=== PATIENT | female | born 1940 | race Caucasian/White ===

== ENCOUNTER → 2018-04-29 12:38 | Outpatient (CLI) | payer MEDICARE, SELFPAY ==
[2018-04-29 12:50] LABS: Bacteria 0 SEEN /hpf (None Seen); Mucous, Urine 0 SEEN /hpf (<or=2+); White Blood Cells 0 SEEN /hpf (0-5)
[2018-04-29 13:46] LABS: Color, Urine Yellow (Yellow); Glucose, Dipstick Normal (Normal); Ketone-Dipstick 15 mg/dl (Negative); Leukocyte Esterase-Dipstick Negative /ul (Negative); Nitrite-Dipstick Negative (Negative); Occult Blood-Urine 150 /ul (Negative); Protein-Dipstick Negative (Negative); Urine Bilirubin Dipstick Negative (Negative); Urine Clarity Clear (Clear); Urine Urobilinogen Normal (Normal)
[2018-04-29 13:53] LABS: Red Blood Cells-Urine 0-5 SEEN /hpf (0-5); Squamous Epithelial Cells - UA 0-5 SEEN /hpf (5-10)
[2018-04-29 13:59] LABS: Erythrocyte Sedimentation Rate 16 mm/hr (0-30)
[2018-04-29 14:01] LABS: Absolute Lymphocyte Count 2.09 X10^3/ul (0.83-4.51); Absolute Neutrophil Count 3.6 X10^3/uL (2.0-7.7); Basophil# 0.06 X10^3/uL; Basophil% 0.9 % (0-1); Eosinophil# 0.16 X10^3/uL; Eosinophils% 2.4 % (0-5); Hematocrit 45.3 % (37-47); Hemoglobin 15.1 g/dl (12.0-15.0); Lymphocyte # 2.09 X10^3/ul (4.0); Lymphocyte % 31.7 % (19-41); Mean Corp Hgb Conc 33.3 g/gl (32-36); Mean Corpuscular Volume 90.1 fL (81-99); Mean Platelet Vol. 11.5 fl (6.2-12.0); Monocyte# 0.66 X10^3/uL; Neutrophil % 54.5 % (47-70); POSITIVE COUNT NO; POSITIVE DIFFERENTIAL NO; POSITIVE MORPHOLOGY NO; Platelet Count 218 K/mm3 (150-450); RBC Distribution Width CV 13.6 % (11.6-14.6); RBC Distribution Width SD 44.5 fl (35.1-43.9); Red Blood Count 5.03 M/mm3 (4.2-5.4); White Blood Count 6.6 K/mm3 (4.4-11.0)
[2018-04-29 14:05] LABS: PTHIN 48.4 pg/mL (18.4-80.1)
[2018-04-29 14:07] LABS: ALB/GLOB Ratio 0.8 RATIO (0.9-2.4); AST(SGOT) 21 U/L (15-37); Alanine Aminotransfer ALT/SGPT 23 U/L (13-56); Albumin, Serum 3.3 g/dL (3.2-5.0); Alkaline Phosphatase 62 U/L (45-117); Anion Gap 13 (5-15); BUN 13 mg/dL (7-18); BUN/Creat Ratio 12.4 RATIO (10-20); Calcium,Total 9.2 mg/dL (8.5-10.1); Chloride 105 mmol/L (98-107); Creatinine, Serum 1.05 mg/dL (0.55-1.02); EST Glomerular Filtration Rate 54 mL/min (>60); Est Glom Filt Rate - Afr Amer 65 mL/min (>60); Glucose 87 mg/dL (74-106); Potassium 4.2 mmol/L (3.5-5.1); Protein, Total 7.3 g/dL (6.4-8.2); Sodium Level 141 mmol/L (136-145); Thyroid Stim Hormone (TSH) 3.48 uIU/mL (0.358-3.74)
== END ==
PROVIDERS: Family Provider Family Medicine; PCP Family Medicine; Visit Provider Family Medicine
DX: R10.32 Left lower quadrant pain (principal); E78.00 Pure hypercholesterolemia, unspecified
CPT/HCPCS: 36415; 80053; 81001; 83970; 84443; 85025; 85652; 86140; 87086

== ENCOUNTER → 2018-04-29 14:59 | Outpatient (CLI) | payer MEDICARE, SELFPAY ==
[2018-04-29 15:02] LABS: Bacteria 0 SEEN /hpf (None Seen); Mucous, Urine 0 SEEN /hpf (<or=2+); Red Blood Cells-Urine 0 SEEN /hpf (0-5); White Blood Cells 0 SEEN /hpf (0-5)
[2018-04-29 15:40] LABS: Color, Urine Yellow (Yellow); Glucose, Dipstick Normal (Normal); Ketone-Dipstick 15 mg/dl (Negative); Leukocyte Esterase-Dipstick Negative /ul (Negative); Nitrite-Dipstick Negative (Negative); Occult Blood-Urine 25 /ul (Negative); Protein-Dipstick Negative (Negative); Urine Bilirubin Dipstick Negative (Negative); Urine Clarity Clear (Clear); Urine Urobilinogen Normal (Normal)
[2018-04-29 16:01] LABS: Squamous Epithelial Cells - UA 0-5 SEEN /hpf (5-10)
== END ==
PROVIDERS: Family Provider Family Medicine; PCP Family Medicine; Visit Provider Family Medicine
DX: R10.32 Left lower quadrant pain (principal); E78.00 Pure hypercholesterolemia, unspecified
CPT/HCPCS: 36415; 80053; 81001; 83970; 84443; 85025; 85652; 86140; 87086; 87088

== ENCOUNTER → 2018-05-15 12:54 | Outpatient (CLI) | payer MEDICARE, SELFPAY ==
--- NOTE | 2018-05-15 12:56 | CT_ITS ---
STUDY: CT ABDOMEN AND PELVIS WITH CONTRAST REASON FOR EXAM: Female, 77 years old. Left lower quadrant pain. RADIATION DOSAGE (If Supplied By Facility): CTDIvol = ( 13.89 ) mGy, DLP = ( 699.89 ) mGycm TECHNIQUE: Transaxial images were obtained from the dome of the diaphragm to the symphysis pubis with oral contrast. 100 ml of Isovue 300 contrast was administered. Sagittal and coronal images were reconstructed. Individualized dose optimization techniques were used for this CT. COMPARISON: Comparison is made with prior study dated December 22, 2014. FINDINGS: Stable minimal increased markings at the lung bases suggests a mild bibasilar scarring. The visualized portions of the heart are within normal limits. Normal liver. Normal gallbladder and extrahepatic biliary system. Normal spleen. Normal pancreas. Normal bilateral adrenal glands. Stable small right renal cysts. Stable left parapelvic cysts. Normal visualized stomach. There is a 2 cm diverticulum in the second portion of the duodenum. There are multiple colonic diverticula consistent with diverticulosis. Mild degree of increased markings in the fat surrounding the mid descending colon. This may represent a mild degree of mid descending colon diverticulitis. The appendix is visualized and appears normal. There is diffuse atherosclerotic calcification of the abdominal aorta and its major visceral branches, without a demonstrated aneurysm. Normal inferior vena cava. There is borderline retroperitoneal lymphadenopathy with enlarged nodes no greater than 10mm in the short axis diameter. Normal urinary bladder. The previously seen cyst in the left adnexal region is not seen at this time. There is a small umbilical hernia containing fat. There are degenerative changes of the visualized lumbar spine. CT/Abdomen/Pelvis WITH Contrast IMPRESSION: Findings suggestive of a mild degree of early diverticulitis in the mid descending colon. The previously seen cyst in the left adnexa has resolved. Electronically Signed: Dominic Haywood MD at 13:49 EDT Tel [phone], Service support ,
== END ==
PROVIDERS: Family Provider Family Medicine; PCP Family Medicine; Visit Provider Family Medicine
DX: R10.32 Left lower quadrant pain (principal)
CPT/HCPCS: 74177; Q9967

== ENCOUNTER → 2018-07-09 08:50 | Outpatient (CLI) | payer MEDICARE, SELFPAY ==
--- NOTE | 2018-07-09 09:25 | RAD_ITS ---
STUDY: BARIUM ENEMA. REASON FOR EXAM: Female, 78 years old. Incomplete colonoscopy. FLUOROSCOPY TIME (if supplied): (0:42) minutes/seconds. 13 spot images were obtained. TECHNIQUE: Barium was introduced retrograde through the rectum. The entire colon was opacified. COMPARISON: None. FINDINGS: There is evidence of diverticulosis of the descending colon and sigmoid colon. There is a focal area of narrowing in the midportion of the sigmoid colon with findings suggestive of overhanging edges. A neoplastic process. There is no evidence of obstruction. RAD/Barium Enema w/Air Contrast IMPRESSION: Diverticulosis of the left hemicolon. Focal area of narrowing with overhanging edges in the midportion of the sigmoid colon. A neoplastic process should be ruled out. There is no evidence of obstruction. Electronically Signed: Dominic Haywood MD at 10:19 EST Tel [phone], Service support ,
== END ==
PROVIDERS: Family Provider Family Medicine; PCP Family Medicine; Referring Provider Surgery; Visit Provider Surgery
DX: Z53.9 Procedure and treatment not carried out, unspecified reason (principal); K57.30 Diverticulosis of large intestine without perforation or abscess without bleeding
CPT/HCPCS: 74280

== ENCOUNTER 2018-08-20 11:50 | Day surgery (SDC) | payer MEDICARE, SELFPAY ==
[2018-08-14 15:30] VITALS: BMI 25.0
[2018-08-20] VITALS (8 sets, daily range): BP systolic 101–149; BP diastolic 46–74; PULSE 94–109; RESP 15–16; TEMP 36.2–36.9; O2SAT 95–100; BMI 25.4
--- NOTE | 2018-08-20 12:46 | PCM.HP.BLA ---
History and Physical Date of Admission: 08/20/18 HISTORY AND PHYSICAL - COLON RESECTION FOR RECURRENT DIVERTICULITIS ? Shadia Turner 1940 August 07, 2018 ? REFERRING PHYSICIAN: ??Doroteo Dominguez MD ? CHIEF COMPLAINT: ?LLQ pain ? HPI: The patient is a 78 year old female with a complaint of recurrent LLQ pain. ? Shadia is a patient I am following for diverticulitis. ? The patient is a 78?year old female referred for diverticulitis and questionable pneumaturia. ? Shadia notes a 6-month history of abdominal complaints. ?She notes a pressure sensation and discomfort in her left lower abdomen intermittently, does not radiate, varies in intensity-states currently /. ?Notes pressure with having a bowel movement and feels that she passes air when she urinates. ?Notes recently when wiping after urination she sees stool on the paper. ?Denies frequent UTIs. ?She does note a recent history of low-grade fever-100.5. ?Was evaluated by her PCP who ordered UA and bloodwork as well as CT scan. ?Urine results reviewed in [facility], positive for occult blood as well as mixed gram positive organisms. ?CBC was within normal limits. ? Shadia has undergone prior endoscopy, thinks this was in 2007, by Dr. Lee. ?She denies a history of polyps. ??Denies family history of colon cancer. ??Patient states that in the past she had episodes suspected to be diverticulitis not formally diagnosed. ?She had previously had ?episodes of lower abdominal pain and underwent lysis of adhesions in conjunction with [employer] procedure in 2014. ? ? We obtained a CT scan of the abdomen and pelvis. ?This demonstated mild diverticulitis in the descending colon/proximal sigmoid. There was no colon approximate to the bladder, no bladder thickening and no air in the bladder ? ?I performed lower endoscopy on July 09, 2018. ?The patient was found to have significant tortuosity and diverticulosis which may be concerned for blindly try and advance the scope through the segment through the risk of injury. ?Endoscopy was aborted. ?Endoscopically there were no visualized area suspicious for malignancy. ? A follow-up barium enema was obtained. ?This demonstrated diverticulosis in the left hemicolon. ?There was also noted to be a focal area of narrowing with overhanging edges in the midportion of the sigmoid colon. ?It was listed as a neoplastic process should be ruled out and that there was no evidence obstruction. ?Reviewing the barium enema in concert with the CT scan I do see what Dr. Haywood is noting. ?I agree this is most likely a diverticular narrowing segment but also agree that I cannot rule out a malignancy in this area. ? She returns now with plans to repeat a colonoscopy and if I am unable to get past the area of concern and prove this is nonsignificant then would plan for laparoscopic sigmoid resection the following day ? The patient is being seen by me today at the request of Dr. Doroteo Dominguez MD?for my opinion and advice regarding recurring diverticulitis and now left lower quadrant pain/questionable stricture. ? PAST?MEDICAL?HISTORY PAST MEDICAL HISTORY Diagnosis Date ? Asthma ? ? as a child ? Osteoporosis ? ? Snoring ? ? ? PAST?SURGICAL?HISTORY PAST SURGICAL HISTORY Procedure Laterality Date ? APPENDECTOMY ? ? ? COLONOSCOP W/ OR W/O BRS SPEC ? ? ? Colonoscopy ? COLONOSCOP W/ OR W/O BRSH SPEC ? 07/09/2018 ? Colonoscopy ? LAP, SURG ENTEROLYSIS ? 02/22/15 ? intraoperative for Dr. Wharton ? LIGATE FALLOPIAN TUBE ? ? ? PAST SURGICAL HISTORY OF ? 10/2006 ? right foot surgery ? PAST SURGICAL HISTORY OF ? 06/11 ? left foot surgery ? ? CURRENT?MEDICATIONS ? Current Outpatient Prescriptions: gabapentin (NEURONTIN) 100 mg capsule TAKE 1 CAPSULE BY MOUTH THREE TIMES DAILY WITH A MEAL...AND 3 CAPSULES AT BEDTIME Disp: Rfl: 0 magnesium oxide 200 mg magnesium tab Take by mouth. Disp: Rfl: aspirin, enteric coated (ASPIRIN, ENTERIC COATED) 81 mg EC tablet Take 81 mg by mouth once daily. Disp: Rfl: ERGOCALCIFEROL, VITAMIN D2, (VITAMIN D ORAL) Take ?by mouth. Disp: Rfl: CALCIUM 500 MG TAB Take one(1) tablet twice daily. w/ vit D Disp: Rfl: 0 MULTIVITAMIN TAB Take one(1) tablet daily. Disp: Rfl: 0 neomycin 500 mg tablet Take 2 tablets by mouth four times daily. 2 TABLETS AT 6, 8 ,AND 10 PM Disp: 6 tablet Rfl: 0 metroNIDAZOLE (FLAGYL) 500 mg tablet Take 1 tablet by mouth three times daily. 2 TABLETS AT 6, 8, AND 10 PM Disp: 6 tablet Rfl: 0 ? No current facility-administered medications for this visit. ? ALLERGIES: Augmentin [Amoxicillin-Pot Clavulanate]; Latex ? PERSONAL HISTORY: SOCIAL?HISTORY Social History ??Marital status: ?Spouse name: Shin ?Years of education: ?Number of children: 4 ? Occupational History Occupation ?Employer ?Comment ? 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 Social History Main Topics ??Smoking status: Never Smoker ?Smokeless tobacco: Never Used ?Alcohol use: No ?Drug use: No ?Sexual activity: Yes ?Partners with: Male ? control/protection: Tubal Ligation ?Comment: Postmenopausal ? ? FAMILY HISTORY: FAMILY?HISTORY FAMILY HISTORY Problem Relation Age of Onset ? Hypertension Mother ? ? Osteoporosis Mother ? ? other (Dementia) Mother ? ? other (lung cancer) Father ?smoker ? REVIEW OF SYMPTOMS: ??The review of systems data was entered by the nurse and reviewed by me ? Nursing Notes: Demetrius Schuster LPN ?08/06/2018 ?1:40 PM ?Signed REVIEW OF SYSTEMS: ?General:???The patient denies fatigue, denies weight loss, denies weight gain, denies feeling hot, and denies feelings of cold. ?Eyes: ?The patient denies glaucoma, denies eye injury/surgery, does not wear glasses or contacts. ?Ear/Nose/Throat: ?The patient denies allergies, NOTES hayfever, denies ear infections, and denies bloody noses. ?Cardiovascular: ?The patient denies chest pain, denies heart disease, denies high blood pressure,denies cardiac stent, denies prior heart attack, denies irregular heart beat, denies high cholesterol, ?denies poor circulation, denies heart failure, other cardiac issues, denies claudication, denies cold feet, denies peripheral arterial stent. ?Respiratory: ?The patient denies tuberculosis, denies pneumonia, denies frequent cough, denies pulmonary embolism, denies shortness of breath, and denies coughing up blood. ?Gastrointestinal: ?The patient denies difficulty swallowing, denies acid reflux, denies ulcers, denies vomiting, denies jaundice/hepatitis, denies gallbladder problems, denies black or tarry stools, denies hemorrhoids, denies bleeding from rectum, denies diverticulitis, denies constipation, denies diarrhea, NOTES loss of stool control, and denies hernias. ?Kidney/Bladder: ?The patient denies kidney stones, denies urine infections, and denies bloody urine. ?Skin: ?The patient denies a history of skin cancer, denies bleeding/changing moles, and denies a history of skin rash. ?Neurologic: ?The patient denies a history of epilepsy/convulsions, denies headaches, denies head/spinal injuries, and denies stroke/TIA. ?Psychiatric: ?The patient denies psychiatric medications, denies depression, and denies voices, denies substance abuse. ?Endocrine: ?The patient denies thyroid disorders, denies diabetes, and denies hormonal problems. ?Hematologic: ?The patient denies a history of bruising, denies bleeding, and denies anemia, denies blood clots. ?Infections: ?The patient denies a history of measles and mumps, denies rheumatic fever, and denies sexually transmitted diseases. ?Musculoskeletal: ?The patient denies back pain/injury, denies back problems, denies sciatica, denies knee/foot trouble, denies arthritis, or denies gout. ? PHYSICAL EXAMINATION: ? General: ?The patient is 78 year old female, well nourished, well hydrated in no acute distress. ?The patient is oriented to time, place, and person. ? VITALS: BP 138/62 ? Pulse 88 ?There is no height or weight on file to calculate BMI.? ? HEENT: ?Normal cephalic, ataumatic, pupils are equally round, sclera are anicteric, mucous membranes are moist, oropharynx is clear. ?Neck has no masses, asymmetry or lymphadenopathy. ?Thyroid is unremarkable. ? Respiratory: ?Clear to auscultation and percussion. ?Normal respiratory excursion and pattern. ? Cardiac: ?Examination is regular rate and rhythm. ? Abdominal exam: ?Soft, nontender, ?with no palpable masses. ?No hepatosplenomegaly. ?No palpable hernias. ? Rectal exam: ?exam deferred ? Extremities: ?no clubbing, cyanosis or edema. ?No adenopathy. ? LABORATORY VALUES: As Noted ? RADIOLOGIC STUDIES: ?As Noted ? Assessment ? IMPRESSION: Recurring diverticulitis, unable to complete colonoscopy and barium enema suspicious for stenosis versus malignancy? ? PLAN: ? We extensively discussed the diagnosis and discussed the options. ??The patient has elected to undergo colon resection we are unable to prove that the abnormality is nonsignificant and nonmalignant. ? We'll plan for bowel prep Sunday night with colonoscopy Sunday. ?The patient understands we will try more aggressively to get past the area of tortuosity to the area of concern on barium enema and this increases the risk of injury to the colon and perforation requiring emergent surgery that day. ??We discussed the risks and benefits of the planned endoscopy. ?I have informed the patient that complications can occur including failure to complete the endoscopy and perforation. ?The patient had the opportunity to ask questions concerning the planned endoscopy. ?My staff has also explained the procedure to the patient in understandable terms and has given the patient printed material concerning the procedure. ?The patient freely consents to surgery. ? If I am unable to get beyond that area or if the area does appear chronically narrowed and/or suspicious for malignancy, then I plan to perform a Laparoscopic Low Anterior Resection - 92964-496. ?The planned surgical procedure was discussed extensively with the patient. ?The risks, benefits, anticipated outcomes and possible complications and alternatives were discussed. ?My staff has also explained the procedure in understandable terms and the patient was given the option to take printed material concerning the planned procedure. ?The patient had the opportunity to ask questions concerning the planned procedure. ?The patient freely consents to the planned procedure. ?? ? I will plan for outpatient antibiotic preparation including Neomycin and Flagyl 1gm each at 6,8, and 10pm the night before surgery. ? Anticipated Surgical Procedure/ CPT Code: Laparoscopic Low Anterior Resection - 32481-281 ? Anticipated Anesthetic: General ? Patient weight: ?Blood pressure 138/62, pulse 88.?BMI: ?There is no height or weight on file to calculate BMI. ? Planned antibiotic: Levaquin 500mg IVPB rehabilitation caseworker to OR ? SCDs needed - Yes ? Compensation And Benefits Advisor Needed - Yes ?? ? Diagnoses: (D12.6) Adenomatous polyp of colon, unspecified part of colon ?(primary encounter diagnosis) ? A letter was sent to Dr. Doroteo Dominguez MD?indicating the above finding for this patient. ? Return to Clinic: The patient is instructed to follow-up with me 1 week post operatively. ? Yoel Guzman MD
--- NOTE | 2018-08-20 13:00 | COLBX_PTH ---
PATIENT: KAT WICK LOC: EN U#:[id number] AGE/SX: 78/F ROOM: RE08/20/[address]: Dr. Yoel Guzman MD : 1940 BED: DIS: 08/20/2018 SPEC #: [id number] RECD: 08/20/18 14:34 STATUS: PHYLLIS REMildred #: [id number] JAG: 08/20/18 13:[address]: Yoel Guzman DEPT: SURGICAL PATHOLOGY RECD BY: Goldy Sandoval ENTERED: 08/21/18 10:20 SP TYPE: COLON BX OTHR DR: Dr. Doroteo Dominguez MD Tissues: A - Cecum, NOS B - Gastric mucous membrane C - Gastric mucous membrane Procedures: Surgery Specimen Level IV HEADER OPERATION: Colonoscopy, EGD ([facility] [place]) PRE-OP DIAGNOSIS: Barium enema with possible malignancy TISSUE SUBMITTED: A - Cecal biopsy, B - Antrum biopsy for H. pylori and path, C - Biopsy of fundic polyp MICROSCOPIC DIAGNOSIS A. Cecum, biopsy: Colonic mucosa with no significant pathologic change. B. Gastric antrum, biopsy: Mild chronic inflammation. C. Gastric fundus, biopsy: Fundic gland polyp. AM:martin 08/22/18 COMMENT B. The results of immunohistochemistry for Helicobacter pylori will be reported separately ([id number]). MICROSCOPIC DESCRIPTION Slides are reviewed. GROSS DESCRIPTION A - Received in fixative is one container labeled with the patient's name and designated cecal biopsy. The specimen consists of one irregular fragment of light sam soft tissue that measures 0.2 x 0.1 x 0.1 cm. The specimen is totally submitted in one cassette. B - Received in fixative is one container labeled with the patient's name and designated antrum. The specimen consists of one irregular fragment of light sam soft tissue that measures 0.3 x 0.2 x 0.1 cm. The specimen is totally submitted in one cassette. C - Received in fixative is one container labeled with the patient's name and designated biopsy of fundic polyp. The specimen consists of one irregular fragment of light sam soft tissue that measures 0.2 x 0.1 x 0.1 cm. The specimen is totally submitted in one cassette. / AM:martin 08/21/18 TC:3 CPT: 72664 x3
--- NOTE | 2018-08-20 13:00 | IMM_PTH ---
PATIENT: KAT WICK LOC: EN U#:[id number] AGE/SX: 78/F ROOM: RE08/20/[address]: Dr. Yoel Guzman MD : 1940 BED: DIS: 08/20/2018 SPEC #: [id number] RECD: 08/21/18 11:43 STATUS: PHYLLIS REQ #: [id number] JAG: 08/20/18 13:[address]: Yoel Guzman DEPT: IMMUNOHISTOCHEMISTRY RECD BY: Roopa Martin ENTERED: 08/21/18 11:44 SP TYPE: IMMUNO OTHR DR: Dr. Doroteo Dominguez MD Tissues: B - Stomach, NOS Procedures: H Pylori (initial) PHYSICIAN & INSTITUTION [place] [id number] SPECIMEN INFORMATION: Tissue Source: B - Antrum biopsy Clinical Info: Possible malignancy Specimen Number: [id number] CPT code: 94963 METHODOLOGY: Deparaffinized sections of prefer/formalin-fixed tissue or PAP/DQ stained slides are incubated with monoclonal/polyclonal antibodies/oligonucleotide probes. Localization is made via biotin free immunoperoxidase method. Appropriate controls are performed and reacted as expected. Results on target cell population are indicated in the following table: RESULTS: ANTIBODY / CLONE RESULT Block B H Pylori (polyclonal) negative These tests were developed and their performance characteristics determined by [facility]. They may not have been cleared or approved by the U.S. Food and Drug Administration. The FDA has determined that such clearance or approval is not necessary. INTERPRETATION: B. Antrum, biopsy: Negative for Helicobacter pylori organisms. SJ:martin 08/23/18
--- NOTE | 2018-08-20 14:23 | OP.ENDO_ITS ---
Patient Name: Shadia Turner Procedure Date: 08/20/2018 2:06 PM Date of : 1940 Age: 78 Procedure: Upper GI endoscopy Indications: Suspected upper gastrointestinal bleeding Providers: Yoel Guzman MD Referring MD: Yoel Guzman MD Medicines: Monitored Anesthesia Care Patient Profile: This is a 78 year old female. Refer to note in patient chart for documentation of history and physical. Complications: No immediate complications. Procedure: Pre-Anesthesia Assessment: - Prior to the procedure, a History and Physical was performed, and patient medications and allergies were reviewed. The patient is competent. The risks and benefits of the procedure and the sedation options and risks were discussed with the patient. All questions were answered and informed consent was obtained. Patient identification and proposed procedure were verified by the physician, the nurse and the review specialist in the procedure room. Mental Status Examination: alert and oriented. Airway Examination: normal oropharyngeal airway and neck mobility. Respiratory Examination: clear to auscultation. CV Examination: normal. ASA Grade Assessment: II - A patient with mild systemic disease. After reviewing the risks and benefits, the patient was deemed in satisfactory condition to undergo the procedure. The anesthesia plan was to use monitored anesthesia care (MAC). Immediately prior to administration of medications, the patient was re-assessed for adequacy to receive sedatives. The heart rate, respiratory rate, oxygen saturations, blood pressure, adequacy of pulmonary ventilation, and response to care were monitored throughout the procedure. The physical status of the patient was re-assessed after the procedure. After obtaining informed consent, the endoscope was passed under direct vision. Throughout the procedure, the patient's blood pressure, pulse, and oxygen saturations were monitored continuously. The gastroscope was introduced through the mouth, and advanced to the jejunum. The upper GI endoscopy was accomplished without difficulty. Scope In: 2:07:32 PM Scope Out: 2:11:48 PM Total Procedure Duration Time 0 hours 4 minutes 16 seconds Findings: The examined jejunum was normal. Scattered mild inflammation characterized by adherent blood and erythema was found in the gastric body. Biopsies were taken with a cold forceps for histology. A small non-bleeding Patricia-Ybarra tear with no stigmata of recent bleeding was found. Multiple small sessile polyps with no bleeding and no stigmata of recent bleeding were found in the gastric fundus. The polyp was removed with a cold biopsy forceps. Resection and retrieval were complete. Impression: - Normal examined jejunum. - Gastritis. Biopsied. - Patricia-Ybarra tear. - Multiple gastric polyps. Resected and retrieved. Recommendation: - Return to my office in 1 week. - Continue present medications. Procedure Code(s): --- Professional --- 78101, Esophagogastroduodenoscopy, flexible, transoral; with biopsy, single or multiple CPT copyright 2017 [employer]. All rights reserved. The codes documented in this report are preliminary and upon travel writer review may be revised to meet current compliance requirements. Yoel Guzman MD 08/20/2018 2:22:26 PM This report has been signed electronically. Number of Addenda: 0 Note Initiated On: 08/20/2018 2:06 PM
--- NOTE | 2018-08-20 14:28 | OP.ENDO_ITS ---
Patient Name: Shadia Turner Procedure Date: 08/20/2018 12:50 PM Date of : 1940 Age: 78 Procedure: Colonoscopy Indications: Follow-up of diverticulitis Providers: Yoel Guzman MD Referring MD: Yoel Guzman MD Medicines: Monitored Anesthesia Care Patient Profile: This is a 78 year old female. Refer to note in patient chart for documentation of history and physical. Last Colonoscopy: within the past 3 months. Complications: No immediate complications. Procedure: Pre-Anesthesia Assessment: - Prior to the procedure, a History and Physical was performed, and patient medications and allergies were reviewed. The patient is competent. The risks and benefits of the procedure and the sedation options and risks were discussed with the patient. All questions were answered and informed consent was obtained. Patient identification and proposed procedure were verified by the physician, the nurse and the tax director in the procedure room. Mental Status Examination: alert and oriented. Airway Examination: normal oropharyngeal airway and neck mobility. Respiratory Examination: clear to auscultation. CV Examination: normal. Prophylactic Antibiotics: The patient does not require prophylactic antibiotics. Prior Anticoagulants: The patient has taken no previous anticoagulant or antiplatelet agents. ASA Grade Assessment: II - A patient with mild systemic disease. After reviewing the risks and benefits, the patient was deemed in satisfactory condition to undergo the procedure. The anesthesia plan was to use monitored anesthesia care (MAC). Immediately prior to administration of medications, the patient was re-assessed for adequacy to receive sedatives. The heart rate, respiratory rate, oxygen saturations, blood pressure, adequacy of pulmonary ventilation, and response to care were monitored throughout the procedure. The physical status of the patient was re-assessed after the procedure. After I obtained informed consent, the scope was passed under direct vision. Throughout the procedure, the patient's blood pressure, pulse, and oxygen saturations were monitored continuously. The Colonoscope was introduced through the anus and advanced to the cecum, identified by the appendiceal orifice, ileocecal valve and palpation. The colonoscopy was technically difficult and complex due to a redundant colon. Successful completion of the procedure was aided by changing the patient to a supine position. The patient tolerated the procedure well. Scope In: 1:30:07 PM Scope Withdrawal Time 0 hours 18 minutes 11 seconds Scope Out: 2:03:08 PM Total Procedure Duration Time 0 hours 33 minutes 1 second Findings: The perianal and digital rectal examinations were normal. Many small and large-mouthed diverticula were found in the sigmoid colon. A benign-appearing, intrinsic mild stenosis measuring 1 cm (in length) x 1.3 cm (inner diameter) was found in the sigmoid colon and was traversed. The retroflexed view of the distal rectum and anal verge was normal and showed no anal or rectal abnormalities. Impression: - Diverticulosis in the sigmoid colon. - Stricture in the sigmoid colon. - The distal rectum and anal verge are normal on retroflexion view. - No specimens collected. Recommendation: - Discharge patient to home. - Resume previous diet. - Continue present medications. - Return to my office in 1 week. - Repeat colonoscopy is recommended. The colonoscopy date will be determined after pathology results from today's exam become available for review. Procedure Code(s): --- Professional --- 53355, Colonoscopy, flexible; diagnostic, including collection of specimen(s) by brushing or washing, when performed (separate procedure) CPT copyright 2017 [employer]. All rights reserved. The codes documented in this report are preliminary and upon lottery sales clerk review may be revised to meet current compliance requirements. Yoel Guzman MD 08/20/2018 2:28:11 PM This report has been signed electronically. Number of Addenda: 0 Note Initiated On: 08/20/2018 12:50 PM
--- NOTE | 2018-08-20 14:50 | RAD_ITS ---
STUDY: X-RAY - ABDOMEN/PELVIS REASON FOR EXAM: Female, 78 years old. Pain after endoscope TECHNIQUE: AP supine and upright views of the abdomen and pelvis. COMPARISON: None. FINDINGS: Normal visualized lung bases. There is an unremarkable bowel gas pattern. There is no demonstrated free abdominal air. The visualized liver, spleen and kidneys are grossly normal in size and morphology. There are calcified phleboliths in the pelvis. There are diffuse degenerative changes of the visualized lumbar spine. RAD/Abdomen Single View (Portable) IMPRESSION: No acute findings Electronically Signed: Leo Chowdhury MD at 16:04 EST , Service support ,
--- NOTE | 2018-08-20 15:10 | RAD_ITS ---
STUDY: X-RAY CHEST REASON FOR EXAM: Female, 78 years old. Status post endoscopy evaluate for free air TECHNIQUE: Single AP portable view of the chest. COMPARISON: None. FINDINGS: There is a rim of gas underlying the midepigastric region and underlying the bilateral hemidiaphragms portion of which may represent a amount of gas within the stomach however free air is not excluded based on this study. Minimal bilateral lower lobe atelectasis. Normal size heart. Normal mediastinum and andrez. Normal visualized pulmonary arteries. Normal visualized aortic arch and descending thoracic aorta. There are diffuse degenerative changes of the visualized thoracic spine. Normal visualized ribs, clavicles, and shoulders. There is visualized vascular calcifications in the left upper quadrant compatible with splenic calcification. RAD/Chest 1 View (Portable) IMPRESSION: There is a rim of gas underlying the hemidiaphragms bilaterally raises concern for pneumoperitoneum recommend CT scan of the abdomen and pelvis. This can be performed without contrast to evaluate for free air. N.B. : DEREJE Boone, confirmed on 08/20/2018 19:30:29 (ET) that the referring physician received the results and did not require a verbal consultation. Electronically Signed: Italia Smyth MD at 17:32 EST Tel , Service support ,
--- OUTSIDE RECORDS SUMMARY | 2018-11-21 21:20 | XMS RPT_ITS ---
:1940 Author Organization OHIP Care Team Providers Name Role Phone HYACINTH IYER (PA) Attending Unavailable MIGUEL DOMINGUEZ Referring Unavailable NEO MALIK Attending Unavailable MIGUEL DOMINGUEZ Referring Unavailable NEO MALIK Attending Unavailable NEO MALIK Referring Unavailable NEO MALIK Attending Unavailable MIGUEL DOMINGUEZ Referring Unavailable NEO MALIK Attending Unavailable MIGUEL DOMINGUEZ Referring Unavailable NEO MALIK Admitting Unavailable NEO MALIK Attending Unavailable NEO MALIK Referring Unavailable NEO MALIK Attending Unavailable MIGUEL DOMINGUEZ Referring Unavailable Miguel Dominguez Primary Care Unavailable Neo Malik Admitting Unavailable Megan, Neo Attending Unavailable Megan, Neo Referring Unavailable JessikaАлександр mckinneyril Attending Unavailable Bernabe Wharton Referring Unavailable Dominguez, Miguel Attending Unavailable Krishna Wharton Referring Unavailable Dominguez, Miguel Primary Care Unavailable Krishna Wharton Consulting Unavailable Dominguez, Miguel Consulting Unavailable Dominguez, Miguel Attending Unavailable Dominguez, Miguel Referring Unavailable Dominguez, Miguel Primary Care Unavailable Dominguez, Miguel Attending Unavailable Dominguez, Miguel Primary Care Unavailable Dominguez, Miguel Referring Unavailable Dominguez, Miguel Attending Unavailable Dominguez, Miguel Referring Unavailable Dominguez, Miguel Primary Care Unavailable Megan, Neo Consulting Unavailable Megan, Neo Attending Unavailable Megan, Neo Referring Unavailable Dominguez, Miguel Primary Care Unavailable Megan, Neo Admitting Unavailable Megan, Neo Attending Unavailable Megan, Neo Referring Unavailable Dominguez, Miguel Primary Care Unavailable Megan, Neo Attending Unavailable Megan, Neo Referring Unavailable Dominguez, Miguel Primary Care Unavailable PROBLEMS PROBLEMS DATE TYPE CONDITION / CODE ATTENDING STATUS SOURCE 09/12/2018 Unknown Z12.31 - Encounter Miguel Dominguez Active [facility] for screening Community mammogram for Hospital malignant neoplasm Repository of breast / Z12.31(ICD-10) 09/12/2018 Unknown M85.89 - Other Miguel Dominguez Active [facility] specified disorders Community of bone density and Hospital structure, multiple Repository sites / M85.89(ICD-10) 08/28/2018 Unknown Z01.810 - Encounter JessikaKishan mckinney Active [place] for preprocedural [facility] examination / Repository Z01.810(ICD-10) 07/09/2018 Active Diverticulitis of MEGAN, Active [place] intestine, part [facility] Clinic Main unspecified, without [place] perforation or Repository abscess without bleeding / K57.92(ICD-10) 04/30/2018 Unknown R10.9 - Unspecified Miguel Dominguez Active [facility] abdominal pain / Community R10.9(ICD-10) Hospital Repository 04/29/2018 Unknown R10.32 - Left lower Miguel Dominguez Active [place] quadrant pain / Community R10.32(ICD-10) Hospital Repository 04/29/2018 Unknown E78.00 - Pure Miguel Dominguez Active [place] hypercholesterolemia Community , unspecified / Hospital E78.00(ICD-10) Repository PROCEDURES PROCEDURES No Procedure Records FoundRESULTS RESULTS DEXA BONE DENSITY Observed: 09/12/2018 Status: F Source: [place] 7:59 AM [facility] REPOSITORY [facility] Imaging Services [address] [place] [address] Dexa Bone Density Study MR#: [id number] Acct: [id number] Name: SHADIA TURNER Rep #: [id number] : 1940 F 78 From: Dominic Haywood MD PCP: Miguel Dominguez MD Status: REG CLI Study: Dexa Bone Density Study Date of Exam: 09/12/18 Exam# [id number] Ordering Dr: Miguel Dominguez MD STUDY: DUAL ENERGY X-RAY ABSORPTIOMETRY / DXA REASON FOR EXAM: Female, 78 years old. The patient is postmenopausal. Loss of height. TECHNIQUE: Bone Mineral Density (BMD) measurements of lumbar spine and bilateral hips were obtained. COMPARISON: Comparison is made with prior study dated February 22, 2016. FINDINGS: Lumbar Spine (L1-L4): g/cm2 (0.917) / T-score (-2.2) / Z-score (-0.4) Findings are suggestive of osteopenia with a moderate fracture risk. Left Femur Total: g/cm2 (0.706) / T-score (-2.4) / Z- score (-0.5) Left Femoral Neck: g/cm2 (0.747) / T-score (-2.1) / Z- score (0.0) Right Femur Total: g/cm2 (0.689) / T-score (-2.5) / Z- score (-0.6) Right Femoral Neck: g/cm2 (0.715) / T-score (-2.3) / Z-score (-0.3) The T-Scores on the most recent prior examination were: Lumbar Spine (L1-L4): There has been worsening of bone density since the previous examination. Left Femur Total: which represents a worsening of 3.8%. Right Femur Total: which represents a worsening of 3.1%. BD/Dexa Bone Density Study IMPRESSION: The patient is considered osteopenic as outlined below according to World Saleem Organization (WHO) criteria with a high fracture risk. There has been worsening of bone density since the previous examination. Reference Information: The T-score is the number of standard deviations above or below the standard which is normal for young adults at their peak bone mineral density. The World Health Organization (WHO) interprets the T-scores as follows: Above -1 Normal bone density Between -1 and -2.5 Osteopenia Equal to / or below -2.5 Osteoporosis As a practical clinical guideline, osteopenia may be graded as follows: Mild -1 through -1.5 Moderate -1.6 through -2.0 Severe -2.1 through -2.4 The Z-score is the number of standard deviations above or below age-matched controls. A Z-score of less than -1.5 would be considered abnormal. References: 1. NIH Osteoporosis and Related Bone Diseases http://www.osteo.org 2. International Society for Clinical Densitometry http://www.iscd.org 3. National Osteoporosis Foundation http://www.nof.org Electronically Signed: Dominic Haywood MD at 14:54 EST Tel [phone], Service support , CC: Miguel Dominguez MD Reimbursement Auditor: Signed SCREENING MAMM (CAD), Observed: 09/12/2018 Status: F Source: [place] 7:56 AM [facility] REPOSITORY [facility] Imaging Services [address] [place] [id number] SCREENING MAMM (CAD), BILAT MR#: [id number] Acct: [id number] Name: SHADIA TURNER Rep #: [id number] : 1940 F 78 From: Dominic Haywood MD PCP: Miguel Dominguez MD Status: [facility] Study: SCREENING MAMM (CAD), BILAT Date of Exam: 09/12/18 Exam# [id number] Ordering Dr: Krishna Wharton MD MAMMOGRAPHY - BILATERAL SCREENING REASON FOR EXAM: Female, 78 years old. Routine annual screening examination. PERTINENT HISTORY: Non-contributory. TECHNIQUE: Digital bilateral breast campbell (3D mammographic acquisition) in the CC and MLO projections. 2-D mediolateral oblique (MLO) and craniocaudad (CC) views of both breasts were obtained. CAD: Full Field Digital Mammography with Computer Added Detection was performed. COMPARISON: Comparison is made with prior study dated March 22, 2017 and February 22, 2016. FINDINGS: Breast Composition: There are scattered areas of fibroglandular density. There are no dominant masses or suspicious calcifications. No other significant abnormalities are identified. There has been no significant change since the prior study. BI/SCREENING MAMM (CAD), BILAT IMPRESSION: Stable bilateral screening mammogram. Yearly follow-up mammogram recommended. (A) ASSESSMENT CATEGORY: BIRADS Category 1: Negative. A letter regarding these results will be sent to the patient by the facility within 30 days. Approximately 10% of breast cancers are not detected by mammography. A normal mammogram should not delay biopsy of a clinically suspicious abnormality. [id number] Electronically Signed: Dominic Haywood MD at 9:10 EST Tel [phone], Service support , CC: Miguel Dominguez MD; Krishna Wharton MD Reimbursement Auditor: Signed PROGRESS Observed: 09/07/2018 Status: COMPLETED Source: [place] 9:02 AM [facility] REPOSITORY HNO ID: [id number] Author: Neo Malik Service: (none) Author Type: Physician Type: Progress Notes Filed: 09/07/2018 9:30 AM Note Text: FOLLOW UP VISIT NAME: Shadia Turner [facility] NO.: [id number] DATE OF SERVICE: September 06, 2018 : 1940 REFERRING PHYSICIAN: Miguel Dominguez MD Shadia is a patient I am following for recurring diverticulitis. Shadia notes a 6-month history of abdominal complaints. She notes a pressure sensation and discomfort in her left lower abdomen intermittently, does not radiate, varies in intensity-states currently 2/10. Notes pressure with having a bowel movement and feels that she passes air when she urinates. Notes recently when wiping after urination she sees stool on the paper. Denies frequent UTIs. She does note a recent history of low-grade fever-100.5. Was evaluated by her PCP who ordered UA and bloodwork as well as CT scan. [facility], positive for occult blood as well as mixed gram positive organisms. CBC was within normal limits. Shadia has undergone prior endoscopy, thinks this was in 2007, by Dr. Lee. She denies a history of polyps. Denies family history of colon cancer. Patient states that in the past she had episodes suspected to be diverticulitis not formally diagnosed. 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 We obtained a CT scan of the abdomen and pelvis. This demonstated mild diverticulitis in the descending colon/proximal sigmoid. There was no colon approximate to the bladder, no bladder thickening and no air in the bladder I performed lower endoscopy on July 09, 2018. The patient was found to have significant tortuosity and diverticulosis which may be concerned for blindly try and advance the scope through the segment through the risk of injury. Endoscopy was aborted. Endoscopically there were no visualized area suspicious for malignancy. A follow-up barium enema was obtained. This demonstrated diverticulosis in the left hemicolon. There was also noted to be a focal area of narrowing with overhanging edges in the midportion of the sigmoid colon. It was listed as a neoplastic process should be ruled out and that there was no evidence obstruction. Reviewing the barium enema in concert with the CT scan I do see what Dr. Haywood is noting. I agree this is most likely a diverticular narrowing segment but also agree that I cannot rule out a malignancy in this area. She returns now with plans to repeat a colonoscopy and if I am unable to get past the area of concern and prove this is nonsignificant then would plan for laparoscopic sigmoid resection the following day We had planned to attempt colonoscopy to get beyond the area of concern and if this failed proceed with sigmoid resection the following day. The patient underwent colonoscopy on August 20 and with effort I was able to get beyond the area of redundancy and get all around the base of the cecum. Interestingly, there appeared to be some pressure blood in the cecum likely felt to be from the upper GI track which was very isolated in that there was no blood noted in the terminal ileum and no blood beyond the hepatic flexure. A cecal biopsy was performed. Following this upper endoscopy was performed which demonstrated some mild erosive gastritis with small amounts of blood adherent to the stomach but no larger or more specific ulcerations and some fundic gland polyps. Pathology returned as: MICROSCOPIC DIAGNOSIS A. Cecum, biopsy: Colonic mucosa with no significant pathologic change. B. Gastric antrum, biopsy: Mild chronic inflammation. C. Gastric fundus, biopsy: Fundic gland polyp. A postprocedure KUB and then chest x-ray were obtained given the challenges of proceeding beyond the area of redundancy that prevented endoscopy the first time. This was initially interpreted as no specific abnormalities. Later that night over read by the radiologist demonstrated what was questionable free air. The patient was contacted and had no abdominal complaints that night or the following day. 2 days post-endoscopy, the patient noted worsening left lower quadrant pain. She was admitted to [facility]. CT scan did demonstrate a small to moderate amount of free air but was not now looked like recurrent diverticulitis in the proximal sigmoid colon area. The patient was given IV antibiotics had resolution of her mildly elevated white blood cell count and fever and was discharged to home on August 26 on oral antibiotics. The patient initially noted some nausea while taking the antibiotics but if she took this with Lactaid milk was doing better. The patient and her family note that she is tolerating a low residue diet. August 29, she has some left lower quadrant pain but otherwise minimal pain. She returns now having completed her antibiotics. Her bowel habits are returning towards normal. She denies any significant pain fever or other difficulties. VITALS: Blood pressure 114/58, pulse 84, temperature 37.1 ?C (98.7 ?F), temperature source Temporal Artery, weight 57.7 kg (127 lb 3.2 oz). On examination, she has normoactive bowel sounds. Her abdomen is nondistended. She has mild left lower quadrant tenderness Assessment IMPRESSION: Recurring diverticulitis, above events noted PLAN: If the patient notes any problems or signs of worsening abdominal pain, the patient should contact me immediately. For now the patient should continue and complete oral antibiotics. I plan now is to perform sigmoid resection on October 23. Diagnoses: (K57.92) Diverticulitis (primary encounter diagnosis) Return to Clinic: The patient is instructed to follow- up with me in 3 weeks. Neo Malik MD CNOV Observed: 09/06/2018 Status: COMPLETED Source: [place] 2:20 PM [facility] REPOSITORY Office Visit (GENSWS) SHADIA TURNER ([id number]) 1940 F Date Time Provider Department 09/06/18 2:20 PM NEO MALIK During your visit today, we recorded the following information about you: Temperature Pulse Blood pressure Weight 98.7 degrees 84/minute 114/58 57.7 kg Neo Malik MD 09/07/2018 9:30 AM Addendum FOLLOW UP VISIT NAME: Shadia Turner CLINIC NO.: [id number] DATE OF SERVICE: September 06, 2018 : 1940 REFERRING PHYSICIAN: Miguel Dominguez MD Shadia is a patient I am following for recurring diverticulitis. Shadia notes a 6-month history of abdominal complaints. She notes a pressure sensation and discomfort in her left lower abdomen intermittently, does not radiate, varies in intensity-states currently 2/10. Notes pressure with having a bowel movement and feels that she passes air when she urinates. Notes recently when wiping after urination she sees stool on the paper. Denies frequent UTIs. She does note a recent history of low-grade fever-100.5. Was evaluated by her PCP who ordered UA and bloodwork as well as CT scan. Urine results reviewed in [facility], positive for occult blood as well as mixed gram positive organisms. CBC was within normal limits. Shadia has undergone prior endoscopy, thinks this was in 2007, by Dr. Lee. She denies a history of polyps. Denies family history of colon cancer. Patient states that in the past she had episodes suspected to be diverticulitis not formally diagnosed. 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 We obtained a CT scan of the abdomen and pelvis. This demonstated mild diverticulitis in the descending colon/proximal sigmoid. There was no colon approximate to the bladder, no bladder thickening and no air in the bladder I performed lower endoscopy on July 09, 2018. The patient was found to have significant tortuosity and diverticulosis which may be concerned for blindly try and advance the scope through the segment through the risk of injury. Endoscopy was aborted. Endoscopically there were no visualized area suspicious for malignancy. A follow-up barium enema was obtained. This demonstrated diverticulosis in the left hemicolon. There was also noted to be a focal area of narrowing with overhanging edges in the midportion of the sigmoid colon. It was listed as a neoplastic process should be ruled out and that there was no evidence obstruction. Reviewing the barium enema in concert with the CT scan I do see what Dr. Haywood is noting. I agree this is most likely a diverticular narrowing segment but also agree that I cannot rule out a malignancy in this area. She returns now with plans to repeat a colonoscopy and if I am unable to get past the area of concern and prove this is nonsignificant then would plan for laparoscopic sigmoid resection the following day We had planned to attempt colonoscopy to get beyond the area of concern and if this failed proceed with sigmoid resection the following day. The patient underwent colonoscopy on August 20 and with effort I was able to get beyond the area of redundancy and get all around the base of the cecum. Interestingly, there appeared to be some pressure blood in the cecum likely felt to be from the upper GI track which was very isolated in that there was no blood noted in the terminal ileum and no blood beyond the hepatic flexure. A cecal biopsy was performed. Following this upper endoscopy was performed which demonstrated some mild erosive gastritis with small amounts of blood adherent to the stomach but no larger or more specific ulcerations and some fundic gland polyps. Pathology returned as: MICROSCOPIC DIAGNOSIS A. Cecum, biopsy: Colonic mucosa with no significant pathologic change. B. Gastric antrum, biopsy: Mild chronic inflammation. C. Gastric fundus, biopsy: Fundic gland polyp. A postprocedure KUB and then chest x-ray were obtained given the challenges of proceeding beyond the area of redundancy that prevented endoscopy the first time. This was initially interpreted as no specific abnormalities. Later that night over read by the radiologist demonstrated what was questionable free air. The patient was contacted and had no abdominal complaints that night or the following day. 2 days post-endoscopy, the patient noted worsening left lower quadrant pain. She was admitted to [facility]. CT scan did demonstrate a small to moderate amount of free air but was not now looked like recurrent diverticulitis in the proximal sigmoid colon area. The patient was given IV antibiotics had resolution of her mildly elevated white blood cell count and fever and was discharged to home on August 26 on oral antibiotics. The patient initially noted some nausea while taking the antibiotics but if she took this with Lactaid milk was doing better. The patient and her family note that she is tolerating a low residue diet. August 29, she has some left lower quadrant pain but otherwise minimal pain. She returns now having completed her antibiotics. Her bowel habits are returning towards normal. She denies any significant pain fever or other difficulties. VITALS: Blood pressure 114/58, pulse 84, temperature 37.1 ?C (98.7 ?F), temperature source Temporal Artery, weight 57.7 kg (127 lb 3.2 oz). On examination, she has normoactive bowel sounds. Her abdomen is nondistended. She has mild left lower quadrant tenderness Assessment IMPRESSION: Recurring diverticulitis, above events noted PLAN: If the patient notes any problems or signs of worsening abdominal pain, the patient should contact me immediately. For now the patient should continue and complete oral antibiotics. I plan now is to perform sigmoid resection on October 23. Diagnoses: (K57.92) Diverticulitis (primary encounter diagnosis) Return to Clinic: The patient is instructed to follow- up with me in 3 weeks. Neo Malik MD Referring Provider: MIGUEL DOMINGUEZ [[id number]] Allergies As of Date: 09/06/2018 Noted Allergy Reaction AUGMENTIN (AMOXICILLIN-POT CLAVUL*05/08/2018 8 - GI Upset Comments: Unable to tolerate due to GI side effects LATEX 05/26/2009 2 - Rash Date Reviewed: 09/06/2018 Reviewed by: Demetrius Greenwood LPN - Fully Assessed Reason for Visit: Post Op [174] Cmt: f/u [facility] Primary Visit Diagnosis:Diverticulitis [K57.92] Prescriptions as of 09/06/2018 Sig: NYSTATIN ORAL Take by mouth. PRILOSEC ORAL Take by mouth once daily. ASPIRIN 81 MG TABLET,DELAYED * Take 81 mg by mouth once willy* VITAMIN D2 ORAL Take by mouth. * MULTIVITAMIN TABLET Take one(1) tablet daily. CIPROFLOXACIN 500 MG TABLET Take 500 mg by mouth twice da* NEOMYCIN 500 MG TABLET Take 2 tablets by mouth four * Patient not taking: Reported on 08/29/2018 METRONIDAZOLE 500 MG TABLET Take 1 tablet by mouth three * GABAPENTIN 100 MG CAPSULE TAKE 1 CAPSULE BY MOUTH THREE* MAGNESIUM 200 MG ( MAGNESIU* Take by mouth. * CALCIUM 500 MG TABLET Take one(1) tablet twice willy* Medication notes this encounter CIPROFLOXACIN 500 MG TABLET >> Demetrius Greenwood LPN 09/06/2018 2:16 PM >> DEMETRIUS GREENWOOD LPN SunSep 06, 2018 2:16 PM Please d/c NEOMYCIN 500 MG TABLET >> Demetrius Greenwood LPN 09/06/2018 2:16 PM >> DEMETRIUS GREENWOOD LPN SunSep 06, 2018 2:16 PM Please d/c METRONIDAZOLE 500 MG TABLET >> Demetrius Greenwood LPN 09/06/2018 2:16 PM >> DEMETRIUS GREENWOOD LPN SunSep 06, 2018 2:16 PM Please D/c GABAPENTIN 100 MG CAPSULE >> Demetrius Greenwood LPN 09/06/2018 2:17 PM >> DEMETRIUS GREENWOOD LPN SunSep 06, 2018 2:17 PM Please d/c CALCIUM 500 MG TABLET >> Demetrius Greenwood LPN 09/06/2018 2:17 PM >> DEMETRIUS GREENWOOD LPN SunSep 06, 2018 2:17 PM please d/c Problem List As Of Date 09/06/2018 Noted Resolved Osteopenia [M85.80] INVALID FOR* Abdominal adhesions [K66.0] INVALID FOR* Letter Text Encounter Status:Closed by NEO MALIK MD on 09/07/18 PROGRESS Observed: 08/29/2018 Status: COMPLETED Source: [place] 11:58 AM [facility] REPOSITORY HNO ID: [id number] Author: Neo Malik Service: (none) Author Type: Physician Type: Progress Notes Filed: 08/29/2018 12:10 PM Note Text: FOLLOW UP VISIT NAME: Shadia Turner [facility] NO.: [id number] DATE OF SERVICE: 08/29/2018 : 1940 REFERRING PHYSICIAN: Miguel Dominguez MD Shadia is a patient I am following for recurring diverticulitis. Shadia notes a 6-month history of abdominal complaints. She notes a pressure sensation and discomfort in her left lower abdomen intermittently, does not radiate, varies in intensity-states currently 2/10. Notes pressure with having a bowel movement and feels that she passes air when she urinates. Notes recently when wiping after urination she sees stool on the paper. Denies frequent UTIs. She does note a recent history of low-grade fever-100.5. Was evaluated by her PCP who ordered UA and bloodwork as well as CT scan. Urine results reviewed in [facility], positive for occult blood as well as mixed gram positive organisms. CBC was within normal limits. Shadia has undergone prior endoscopy, thinks this was in 2007, by Dr. Lee. She denies a history of polyps. Denies family history of colon cancer. Patient states that in the past she had episodes suspected to be diverticulitis not formally diagnosed. 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 We obtained a CT scan of the abdomen and pelvis. This demonstated mild diverticulitis in the descending colon/proximal sigmoid. There was no colon approximate to the bladder, no bladder thickening and no air in the bladder I performed lower endoscopy on July 09, 2018. The patient was found to have significant tortuosity and diverticulosis which may be concerned for blindly try and advance the scope through the segment through the risk of injury. Endoscopy was aborted. Endoscopically there were no visualized area suspicious for malignancy. A follow-up barium enema was obtained. This demonstrated diverticulosis in the left hemicolon. There was also noted to be a focal area of narrowing with overhanging edges in the midportion of the sigmoid colon. It was listed as a neoplastic process should be ruled out and that there was no evidence obstruction. Reviewing the barium enema in concert with the CT scan I do see what Dr. Haywood is noting. I agree this is most likely a diverticular narrowing segment but also agree that I cannot rule out a malignancy in this area. She returns now with plans to repeat a colonoscopy and if I am unable to get past the area of concern and prove this is nonsignificant then would plan for laparoscopic sigmoid resection the following day We had planned to attempt colonoscopy to get beyond the area of concern and if this failed proceed with sigmoid resection the following day. The patient underwent colonoscopy on August 20 and with effort I was able to get beyond the area of redundancy and get all around the base of the cecum. Interestingly, there appeared to be some pressure blood in the cecum likely felt to be from the upper GI track which was very isolated in that there was no blood noted in the terminal ileum and no blood beyond the hepatic flexure. A cecal biopsy was performed. Following this upper endoscopy was performed which demonstrated some mild erosive gastritis with small amounts of blood adherent to the stomach but no larger or more specific ulcerations and some fundic gland polyps. Pathology returned as: MICROSCOPIC DIAGNOSIS A. Cecum, biopsy: Colonic mucosa with no significant pathologic change. B. Gastric antrum, biopsy: Mild chronic inflammation. C. Gastric fundus, biopsy: Fundic gland polyp. A postprocedure KUB and then chest x-ray were obtained given the challenges of proceeding beyond the area of redundancy that prevented endoscopy the first time. This was initially interpreted as no specific abnormalities. Later that night over read by the radiologist demonstrated what was questionable free air. The patient was contacted and had no abdominal complaints that night or the following day. 2 days post-endoscopy, the patient noted worsening left lower quadrant pain. She was admitted to [facility]. CT scan did demonstrate a small to moderate amount of free air but was not now looked like recurrent diverticulitis in the proximal sigmoid colon area. The patient was given IV antibiotics had resolution of her mildly elevated white blood cell count and fever and was discharged to home on August 26 on oral antibiotics. The patient initially noted some nausea while taking the antibiotics but if she took this with Lactaid milk was doing better. The patient and her family note that she is tolerating a low residue diet. She has some left lower quadrant pain but otherwise minimal pain VITALS: Blood pressure 110/58, pulse 96, temperature 36.9 ?C (98.5 ?F), weight 60 kg (132 lb 3.2 oz), SpO2 94 %. On examination, she has normoactive bowel sounds. Her abdomen is nondistended. She has mild left lower quadrant tenderness Assessment IMPRESSION: Recurring diverticulitis, above events noted PLAN: If the patient notes any problems or signs of worsening abdominal pain, the patient should contact me immediately. For now the patient should continue and complete oral antibiotics. I plan now is to perform sigmoid resection in mid October given the above events. Diagnoses: (K57.92) Diverticulitis (primary encounter diagnosis) (R39.89) Pneumaturia Return to Clinic: The patient is instructed to follow- up with me in one week. Neo Malik MD CNOV Observed: 08/29/2018 Status: COMPLETED Source: [place] 9:20 AM [facility] REPOSITORY Office Visit (GENSWS) YUESHADIA ([id number]) 1940 F Date Time Provider Department 08/29/18 9:20 AM NEO MALIK During your visit today, we recorded the following information about you: Temperature Pulse Blood pressure Weight 98.5 degrees 96/minute 110/58 60 kg Neo Malik MD 08/29/2018 12:10 PM Signed FOLLOW UP VISIT NAME: Shadia Turner [facility] NO.: [id number] DATE OF SERVICE: 08/29/2018 : 1940 REFERRING PHYSICIAN: Miguel Dominguez MD Shadia is a patient I am following for recurring diverticulitis. Shadia notes a 6-month history of abdominal complaints. She notes a pressure sensation and discomfort in her left lower abdomen intermittently, does not radiate, varies in intensity-states currently 2/10. Notes pressure with having a bowel movement and feels that she passes air when she urinates. Notes recently when wiping after urination she sees stool on the paper. Denies frequent UTIs. She does note a recent history of low-grade fever-100.5. Was evaluated by her PCP who ordered UA and bloodwork as well as CT scan. Urine results reviewed in [facility], positive for occult blood as well as mixed gram positive organisms. CBC was within normal limits. Shadia has undergone prior endoscopy, thinks this was in 2007, by Dr. Lee. She denies a history of polyps. Denies family history of colon cancer. Patient states that in the past she had episodes suspected to be diverticulitis not formally diagnosed. 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 We obtained a CT scan of the abdomen and pelvis. This demonstated mild diverticulitis in the descending colon/proximal sigmoid. There was no colon approximate to the bladder, no bladder thickening and no air in the bladder I performed lower endoscopy on July 09, 2018. The patient was found to have significant tortuosity and diverticulosis which may be concerned for blindly try and advance the scope through the segment through the risk of injury. Endoscopy was aborted. Endoscopically there were no visualized area suspicious for malignancy. A follow-up barium enema was obtained. This demonstrated diverticulosis in the left hemicolon. There was also noted to be a focal area of narrowing with overhanging edges in the midportion of the sigmoid colon. It was listed as a neoplastic process should be ruled out and that there was no evidence obstruction. Reviewing the barium enema in concert with the CT scan I do see what Dr. Haywood is noting. I agree this is most likely a diverticular narrowing segment but also agree that I cannot rule out a malignancy in this area. She returns now with plans to repeat a colonoscopy and if I am unable to get past the area of concern and prove this is nonsignificant then would plan for laparoscopic sigmoid resection the following day We had planned to attempt colonoscopy to get beyond the area of concern and if this failed proceed with sigmoid resection the following day. The patient underwent colonoscopy on August 20 and with effort I was able to get beyond the area of redundancy and get all around the base of the cecum. Interestingly, there appeared to be some pressure blood in the cecum likely felt to be from the upper GI track which was very isolated in that there was no blood noted in the terminal ileum and no blood beyond the hepatic flexure. A cecal biopsy was performed. Following this upper endoscopy was performed which demonstrated some mild erosive gastritis with small amounts of blood adherent to the stomach but no larger or more specific ulcerations and some fundic gland polyps. Pathology returned as: MICROSCOPIC DIAGNOSIS A. Cecum, biopsy: Colonic mucosa with no significant pathologic change. B. Gastric antrum, biopsy: Mild chronic inflammation. C. Gastric fundus, biopsy: Fundic gland polyp. A postprocedure KUB and then chest x-ray were obtained given the challenges of proceeding beyond the area of redundancy that prevented endoscopy the first time. This was initially interpreted as no specific abnormalities. Later that night over read by the radiologist demonstrated what was questionable free air. The patient was contacted and had no abdominal complaints that night or the following day. 2 days post-endoscopy, the patient noted worsening left lower quadrant pain. She was admitted to [facility]. CT scan did demonstrate a small to moderate amount of free air but was not now looked like recurrent diverticulitis in the proximal sigmoid colon area. The patient was given IV antibiotics had resolution of her mildly elevated white blood cell count and fever and was discharged to home on August 26 on oral antibiotics. The patient initially noted some nausea while taking the antibiotics but if she took this with Lactaid milk was doing better. The patient and her family note that she is tolerating a low residue diet. She has some left lower quadrant pain but otherwise minimal pain VITALS: Blood pressure 110/58, pulse 96, temperature 36.9 ?C (98.5 ?F), weight 60 kg (132 lb 3.2 oz), SpO2 94 %. On examination, she has normoactive bowel sounds. Her abdomen is nondistended. She has mild left lower quadrant tenderness Assessment IMPRESSION: Recurring diverticulitis, above events noted PLAN: If the patient notes any problems or signs of worsening abdominal pain, the patient should contact me immediately. For now the patient should continue and complete oral antibiotics. I plan now is to perform sigmoid resection in mid October given the above events. Diagnoses: (K57.92) Diverticulitis (primary encounter diagnosis) (R39.89) Pneumaturia Return to Clinic: The patient is instructed to follow- up with me in one week. Neo Malik MD Referring Provider: NEO MALIK [[id number]] Allergies As of Date: 08/29/2018 Noted Allergy Reaction AUGMENTIN (AMOXICILLIN-POT CLAVUL*05/08/2018 8 - GI Upset Comments: Unable to tolerate due to GI side effects LATEX 05/26/2009 2 - Rash Date Reviewed: 08/29/2018 Reviewed by: Cecilia Nesbitt RN - Fully Assessed Reason for Visit: Post Op [174] Primary Visit Diagnosis:Diverticulitis [K57.92] Other Visit Diagnosis:Pneumaturia [R39.89] Prescriptions as of 08/29/2018 Sig: CIPROFLOXACIN 500 MG TABLET Take 500 mg by mouth twice da* METRONIDAZOLE 500 MG TABLET Take 1 tablet by mouth three * PRILOSEC ORAL Take by mouth once daily. ASPIRIN 81 MG TABLET,DELAYED * Take 81 mg by mouth once willy* * CALCIUM 500 MG TABLET Take one(1) tablet twice willy* VITAMIN D2 ORAL Take by mouth. GABAPENTIN 100 MG CAPSULE TAKE 1 CAPSULE BY MOUTH THREE* LEVOFLOXACIN 500 MG TABLET Take 1 tablet by mouth once d* Patient not taking: Reported on 08/29/2018 MAGNESIUM 200 MG ( MAGNESIU* Take by mouth. * MULTIVITAMIN TABLET Take one(1) tablet daily. NEOMYCIN 500 MG TABLET Take 2 tablets by mouth four * Patient not taking: Reported on 08/29/2018 Problem List As Of Date 08/29/2018 Noted Resolved Osteopenia [M85.80] INVALID FOR* Abdominal adhesions [K66.0] INVALID FOR* Letter Text Encounter Status:Closed by NEO MALIK MD on 08/29/18 DISCHARGE SUMMARY Observed: 08/26/2018 Status: F Source: [place] 9:05 AM [facility] REPOSITORY [facility] Medical Records Department [address] [place] [address] Discharge Summary 08/26/18900 MR#: [id number] Acct: [id number] Name: SHADIA TURNER Rep #: [id number] : 1940 78 From: Neo Malik MD PCP: Miguel Dominguez MD Status: DIS ANGELICA Y Location: [place] [address] Discharge Date and Diagnosis Date of Admission: 08/23/18 Date of Discharge: 08/26/18 - Primary Discharge Diagnosis diverticulitis with pneumoperitoneum - Secondary Discharge Diagnosis Chronic Problems Recurrent cold sores (Chronic) HLD (hyperlipidemia) (Chronic) Hospital Course and Treatment Imaging Results: Diagnostic Data Abdomen/Pelvis CT 08/22/18 23:29 IMPRESSION: 1. Pneumoperitoneum probably related to perforation located at the proximal sigmoid and distal descending colon. 2. There is acute inflammation in the left lower quadrant probably related to sequela of acute diverticulitis. 3. Bilateral basilar dependent and segmental atelectasis. N.B. : The above information has been verbally conveyed by Leena Love MD to Miguel Grider on 08/23/2018 00:27:48 (ET). Electronically Signed: Leena Love MD at 0:43 EST , Service support , Operations: None Procedures: None Summary of Care Provided: he patient is a 78 year old F with a scant amount of free air and left lower quadrant pain consistent with recurrent diverticulitis following colonoscopy this past Sunday.. Shadia notes a 6-month history of abdominal complaints. She notes a pressure sensation and discomfort in her left lower abdomen intermittently, does not radiate, varies in intensity-states currently 2/10. Notes pressure with having a bowel movement and feels that she passes air when she urinates. Notes recently when wiping after urination she sees stool on the paper. Denies frequent UTIs. She does note a recent history of low-grade fever-100.5. Was evaluated by her PCP who ordered UA and bloodwork as well as CT scan. Urine results reviewed in [facility], positive for occult blood as well as mixed gram positive organisms. CBC was within normal limits. Shadia has undergone prior endoscopy, thinks this was in 2007, by Dr. Lee. She denies a history of polyps. Denies family history of colon cancer. Patient states that in the past she had episodes suspected to be diverticulitis not formally diagnosed. 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 We obtained a CT scan of the abdomen and pelvis. This demonstated mild diverticulitis in the descending colon/proximal sigmoid. There was no colon approximate to the bladder, no bladder thickening and no air in the bladder I performed lower endoscopy on July 09, 2018. The patient was found to have significant tortuosity and diverticulosis which may be concerned for blindly try and advance the scope through the segment through the risk of injury. Endoscopy was aborted. Endoscopically there were no visualized area suspicious for malignancy. A follow-up barium enema was obtained. This demonstrated diverticulosis in the left hemicolon. There was also noted to be a focal area of narrowing with overhanging edges in the midportion of the sigmoid colon. It was listed as a neoplastic process should be ruled out and that there was no evidence obstruction. Reviewing the barium enema in concert with the CT scan I do see what Dr. Haywood is noting. I agree this is most likely a diverticular narrowing segment but also agree that I cannot rule out a malignancy in this area. We planned a repeat colonoscopy and if I am unable to get past the area of concern and prove this is nonsignificant then would plan for laparoscopic sigmoid resection the following day. I performed colonoscopy on August 20, and with pressure was able to get beyond the area of concern. Clinically I felt the area of pressure was at approximately 20-30 cm and felt this was lower than the area at the descending colon sigmoid junction. The colon remained completely distended following the procedure. The patient had no abdominal pain. A postprocedure KUB was obtained and a chest x-ray was obtained which was initially interpreted as no free air but later reread with a question of extraluminal air versus a distended stomach. Incidentally, the patient was noted to have what seemed to be a small amount of blood in the base of the cecum so upper endoscopy was performed which demonstrated some mild gastritis but no source of bleeding. The patient was contacted and had no complaints of abdominal pain at that time. She was instructed to contact me if she was having any worsening symptoms. 48 hours later, the patient noted left lower quadrant pain. She presented emergency department and underwent a follow-up CT scan which demonstrated some extraluminal free air in the upper abdomen and what appeared to be again inflammation consistent with diverticulitis at the proximal sigmoid colon area. The patient's white blood cell count was 12. Due to a penicillin allergy she was admitted with plans for IV antibiotics on clear liquids with low residue diet and to monitor the patient. her white count has normalized. She has less abdominal pain and is passing flatus and tolerating orals - Physical Exam General: Alert, Oriented x3, Cooperative Lungs: Clear to auscultation, Normal air movement Cardiovascular: Regular rate, No murmurs Abdomen: Bowel Sounds Present, Soft, Tender - LLQ Vital Signs Temp Pulse Resp BP Pulse Ox 98.2 F 82 16 128/65 H 93 08/26/18 07:56 08/26/18 07:56 08/26/18 07:56 08/26/18 07:56 08/26/18 07:56 Oxygen Flow Rate (L/min) 2 Oxygen Delivery Method Room Air Weight: 60.6 kg Body Mass Index (BMI) 26.1 Intake and Output for Last 24 Hours Intake Total 3224 / 3224 3138 / 3138 814 / 814 Output Total 1100 / 1100 2049 / 2049 250 / 250 Balance 2124 / 2124 1088 / 1088 564 / 564 Laboratory Tests Past 24 Hrs WBC 9.2 RBC 4.08 L Hgb 12.4 Hct 37.1 MCV 90.9 MCH 30.4 MCHC 33.4 Discharge Diet: - - low residue Discharge Activity: No Restrictions May shower in (days): 0 Call your doctor if you observe: Fever of 101 or Higher, - - no flatus Home Medications: Medications to take at Discharge Aspirin [Aspirin, Baby] 81 mg PO DAILY@0800 08/14/18 Cholecalciferol (VIT D3) [Vitamin D3] 1,000 unit PO DAILY 08/14/18 Acetaminophen [Tylenol Tablet] 325 mg PO Q4H PRN PRN tablet 08/26/18 Ciprofloxacin [Cipro] 500 mg PO BID 10 Days #20 tab 08/26/18 Metronidazole [Flagyl] 500 mg PO TID #30 tab 08/26/18 Following Prescrptions Were Given to Patient: Ciprofloxacin [Cipro] 500 mg PO BID 10 Days #20 tab Metronidazole [Flagyl] 500 mg PO TID #30 tab Primary Care Physician: Miguel Dominguez MD [Primary Care Provider] - Please Follow Up With: Neo Malik MD When: Medical Necessity - Tobacco Use Smoking Status: Never smoker Meaningful Use Info Meaningful Use Diagnoses (Choose all that apply): None applicable 08/26/18904 <Electronically signed by Neo Malik MD> Date Neo Malik MD Cosigner Signature (if applicable): Date CC: Miguel Dominguez MD; Neo Malik MD Signed DISCHARGE INSTRUCTION Observed: 08/26/2018 Status: F Source: [place] 7:53 AM [facility] REPOSITORY [facility] Medical Records Department [address] [place] [address] Instructions for Home/Discharge Instructions 08/26/18 0750 MR#: [id number] Acct: [id number] Name: SHADIA TURNER Rep #: [id number] : 1940 78 From: Neo Malik MD PCP: Miguel Dominguez MD Status: ADM ANGELICA - Discharge Diagnoses Current Active Problems: Current Active and Chronic Problems Abdominal pain (Acute) Pneumoperitoneum (Acute) You will use the following diet at home:: Other - low residue Discharge Activity: No Restrictions May shower in (days): 0 Call your doctor if you observe: Fever of 101 or Higher, - - no flatus Allergies/Adverse Reactions: Allergies latex Allergy (Verified 08/22/18 22:57) Rash adhesive Adverse Reaction (Verified 08/22/18 22:57) Rash amoxicillin [From Augmentin] Adverse Reaction (Verified 08/22/18 22:57) Diarrhea clavulanic acid [From Augmentin] Adverse Reaction (Verified 08/22/18 22:57) Diarrhea Medications to take at Discharge Aspirin [Aspirin, Baby] 81 mg PO DAILY@0800 08/14/18 Cholecalciferol (VIT D3) [Vitamin D3] 1,000 unit PO DAILY 08/14/18 Acetaminophen [Tylenol Tablet] 325 mg PO Q4H PRN PRN tablet 08/26/18 Ciprofloxacin [Cipro] 500 mg PO BID 10 Days #20 tab 08/26/18 Metronidazole [Flagyl] 500 mg PO TID #30 tab 08/26/18 The following prescriptions were given: Ciprofloxacin [Cipro] 500 mg PO BID 10 Days #20 tab Metronidazole [Flagyl] 500 mg PO TID #30 tab Primary Care Physician: Miguel Dominguez MD [Primary Care Provider] - Test Results: Test results from this visit will be discussed in further detail at your follow-up appointment, if applicable. Please Follow Up With: Neo Malik MD When: 08/26/18 0753 <Electronically signed by Neo Malik MD> Date Neo Malik MD CC: Miguel Dominguez MD Signed CBC W/DIFF, AUTOMATED Collected: 08/26/2018 Status: F Source: [place] 5:56 AM [facility] REPOSITORY TYPE CODE TESTS RESULT OUT OF RANGE REFERENCE UNITS LAB L100.1000 4.4-11.0 K/mm3 Normal WBC 9.2 LAB L100.1200 4.2-5.4 M/mm3 Low RBC 4.08 LAB L100.1300 12.0-15.0 g/dl Normal HGB 12.4 LAB L100.1400 37-47 % Normal HCT 37.1 LAB L100.1500 81-99 fL Normal MCV 90.9 LAB L100.1600 27.0-32.0 pg Normal MCH 30.4 LAB L100.1700 32-36 g/gl Normal MCHC 33.4 LAB L100.1810 11.6-14.6 % Normal RDW CV 14.3 LAB L100.1820 35.1-43.9 fl High RDW SD 46.7 LAB L100.1900 150-450 K/mm3 Normal PLT 201 LAB L100.2000 6.2-12.0 fl Normal MPV 12.0 LAB L100.2100 47-70 % High NEUT% 72.6 LAB L100.2200 19-41 % Low LY% 15.3 LAB L100.2300 0-10 % High MONO% 10.3 LAB L100.2400 0-5 % Normal EO% 1.2 LAB L100.2500 0-1 % Normal BASO% 0.2 LAB L100.2550 0.0-0.9 % Normal IM GRAN % 0.400 Result Comment: IG% - Immature Granulocytes (promyelocytes, myelocytes and metamyelocytes) > 1% indicates that a LEFT SHIFT is Present. LAB L100.2620 2.0-7.7 X10 3/uL Normal Absolute Neut 6.7 LAB L100.2720 0.83-4.51 X10 3/ul Normal Absolute Lymph 1.41 Performed By: #### L100.0100 #### [facility] [address] [facility] [place], [place], [address] BASIC METABOLIC Collected: 08/26/2018 Status: F Source: [place] PRO[place] (BMP) 5:56 AM [facility] REPOSITORY TYPE CODE TESTS RESULT OUT OF RANGE REFERENCE UNITS LAB L501.0100 74-106 mg/dL Normal GLU 103 Result Comment: Fasting Glucose result from 100 to 125 mg/dL suggests IMPAIRED HOMEOSTASIS per A.D.A. criteria. Please note revised GLUCOSE reference range effective 2017. LAB L501.1000 7-18 mg/dL Normal BUN 7 LAB L501.1100 0.55-1.02 mg/dL Normal CREAT,SERUM 0.69 Result Comment: The validity of the calculated GFR AND GFRAA in patients over 70 years has not been determined. Clinical correlation is essential. LAB L501.1110 >60 mL/min Normal EST GFR 87 Result Comment: Non- GFR Calc LAB L501.1115 >60 mL/min Normal EST GFR - AA 105 Result Comment: GFR Calc LAB L501.1255 ml/min Normal Estimated CRCL 33.30 LAB L501.1300 10-20 RATIO Normal BUN/CRE 10.1 LAB L501.2200 8.5-10 mg/dL Low .1 CA 7.8 LAB L501.5300 136-14 mmol/L Normal 5 NA 139 LAB L501.5600 3.5-5. mmol/L Low 1 K 3.0 LAB L501.5900 98-107 mmol/L Normal CL 106 LAB L501.6100 21.0-3 mmol/L Normal 2.0 CO2 24.0 LAB L501.6200 5-15 Normal GAP 9 Performed By: #### L500.2500 #### [facility] [address] [facility], [address] PROGRESS Observed: 08/24/2018 Status: COMPLETED Source: [place] 2:54 PM [facility] REPOSIT[facility] HNO ID: [id number] Author: Neo Malik Service: (none) Author Type: Physician Type: Progress Notes Filed: 08/24/2018 2:58 PM Note Text: OPERATIVE NOTATION FOR [facility] SURGICAL PROCEDURE. August 20, 2018 Shadia Turner 1940 [id number] female PROCEDURE: COLONOSCOPY - [id number] SURGEON: Gerardo Malik M.D. FACS DRAFTER SEISMOGRAPH: None DEPT: WQ PROVIDER: [id number] Malik MD POS: 2M3=CPBDPNVNBP DIAGNOSIS: (K57.92) Diverticulitis (primary encounter diagnosis) ASA CLASS: 3 - Severe FINDINGS: COMPLICATIONS: None PMHx - PAST MEDICAL HISTORY Diagnosis Date - Asthma as a child - Osteoporosis - Snoring COMORBIDITIES - None Post Op Occurrences - None Wound Classification - Contaminated Operative note dictated in the [facility] dictation system. Neo Malik MD CBC W/DIFF, AUTOMATED Collected: 08/24/2018 Status: F Source: [place] 6:23 AM [facility] REPOSITORY TYPE CODE TESTS RESULT OUT OF RANGE REFERENCE UNITS LAB L100.1000 4.4-11.0 K/mm3 High WBC 11.2 LAB L100.1200 4.2-5.4 M/mm3 Low RBC 4.17 LAB L100.1300 12.0-15.0 g/dl Normal HGB 12.5 LAB L100.1400 37-47 % Normal HCT 38.0 LAB L100.1500 81-99 fL Normal MCV 91.1 LAB L100.1600 27.0-32.0 pg Normal MCH 30.0 LAB L100.1700 32-36 g/gl Normal MCHC 32.9 LAB L100.1810 11.6-14.6 % Normal RDW CV 14.6 LAB L100.1820 35.1-43.9 fl High RDW SD 48.6 LAB L100.1900 150-450 K/mm3 Normal PLT 173 LAB L100.2000 6.2-12.0 fl Normal MPV 11.6 LAB L100.2100 47-70 % High NEUT% 87.2 LAB L100.2200 19-41 % Low LY% 6.6 LAB L100.2300 0-10 % Normal MONO% 5.8 LAB L100.2400 0-5 % Normal EO% 0.1 LAB L100.2500 0-1 % Normal BASO% 0.1 LAB L100.2550 0.0-0.9 % Normal IM GRAN % 0.200 Result Comment: IG% - Immature Granulocytes (promyelocytes, myelocytes and metamyelocytes) > 1% indicates that a LEFT SHIFT is Present. LAB L100.2620 2.0-7.7 X10 3/uL High Absolute Neut 9.8 LAB L100.2720 0.83-4.51 X10 3/ul Low Absolute Lymph 0.74 Performed By: #### L100.0100 #### [facility] [address] [place], [address] BASIC METABOLIC Collected: 08/24/2018 Status: F Source: [place] PROFILE (BMP) 6:23 AM [facility] REPOSITORY TYPE CODE TESTS RESULT OUT OF RANGE REFERENCE UNITS LAB L501.0100 74-106 mg/dL High GLU 130 Result Comment: Fasting Glucose result greater than or equal to 126 mg/dL suggests DIABETES MELLITUS per A.D.A. criteria. Please note revised GLUCOSE reference range effective 2017. LAB L501.1000 7-18 mg/dL Normal BUN 7 LAB L501.1100 0.55-1.02 mg/dL Normal CREAT,SERUM 0.92 Result Comment: The validity of the calculated GFR AND GFRAA in patients over 70 years has not been determined. Clinical correlation is essential. LAB L501.1110 >60 mL/min Normal EST GFR 62 Result Comment: Non- GFR Calc LAB L501.1115 >60 mL/min Normal EST GFR - AA 75 Result Comment: GFR Calc LAB L501.1255 ml/min Normal Estimated CRCL 36.20 LAB L501.1300 10-20 RATIO Low BUN/CRE 7.6 LAB L501.2200 8.5-10 mg/dL Low .1 CA 7.7 LAB L501.5300 136-14 mmol/L Normal 5 NA 139 LAB L501.5600 3.5-5. mmol/L Normal 1 K 3.6 LAB L501.5900 98-107 mmol/L Normal CL 106 LAB L501.6100 21.0-3 mmol/L Normal 2.0 CO2 26.0 LAB L501.6200 5-15 Normal GAP 7 Performed By: #### L500.2500 #### [facility] [address] [place], [address] HISTORY AND PHYSICAL Observed: 08/23/2018 Status: F Source: HURON EXAM 5:06 PM [facility] REPOSITORY [facility] Medical Records Department [address] [place] [address] History and Physical 08/23/18 1656 MR#: [id number] Acct: [id number] Name: SHADIA TURNER Rep #: [id number] : 1940 78 From: Neo Malik MD PCP: Miguel Dominguez MD Status: ADM ANGELICA Y Location: [place] [address] History of Present Illness Date of Admission: 08/23/18 Chief Complaint: abdominal pain The patient is a 78 year old F with a scant amount of free air and left lower quadrant pain consistent with recurrent diverticulitis following colonoscopy this past Sunday.. Shadia notes a 6-month history of abdominal complaints. She notes a pressure sensation and discomfort in her left lower abdomen intermittently, does not radiate, varies in intensity-states currently 2/10. Notes pressure with having a bowel movement and feels that she passes air when she urinates. Notes recently when wiping after urination she sees stool on the paper. Denies frequent UTIs. She does note a recent history of low-grade fever-100.5. Was evaluated by her PCP who ordered UA and bloodwork as well as CT scan. Urine results reviewed in [facility], positive for occult blood as well as mixed gram positive organisms. CBC was within normal limits. Shadia has undergone prior endoscopy, thinks this was in 2007, by Dr. Lee. She denies a history of polyps. Denies family history of colon cancer. Patient states that in the past she had episodes suspected to be diverticulitis not formally diagnosed. 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 We obtained a CT scan of the abdomen and pelvis. This demonstated mild diverticulitis in the descending colon/proximal sigmoid. There was no colon approximate to the bladder, no bladder thickening and no air in the bladder I performed lower endoscopy on July 09, 2018. The patient was found to have significant tortuosity and diverticulosis which may be concerned for blindly try and advance the scope through the segment through the risk of injury. Endoscopy was aborted. Endoscopically there were no visualized area suspicious for malignancy. A follow-up barium enema was obtained. This demonstrated diverticulosis in the left hemicolon. There was also noted to be a focal area of narrowing with overhanging edges in the midportion of the sigmoid colon. It was listed as a neoplastic process should be ruled out and that there was no evidence obstruction. Reviewing the barium enema in concert with the CT scan I do see what Dr. Haywood is noting. I agree this is most likely a diverticular narrowing segment but also agree that I cannot rule out a malignancy in this area. We planned a repeat colonoscopy and if I am unable to get past the area of concern and prove this is nonsignificant then would plan for laparoscopic sigmoid resection the following day. I performed colonoscopy on August 20, and with pressure was able to get beyond the area of concern. Clinically I felt the area of pressure was at approximately 20-30 cm and felt this was lower than the area at the descending colon sigmoid junction. The colon remained completely distended following the procedure. The patient had no abdominal pain. A postprocedure KUB was obtained and a chest x-ray was obtained which was initially interpreted as no free air but later reread with a question of extraluminal air versus a distended stomach. Incidentally, the patient was noted to have what seemed to be a small amount of blood in the base of the cecum so upper endoscopy was performed which demonstrated some mild gastritis but no source of bleeding. The patient was contacted and had no complaints of abdominal pain at that time. She was instructed to contact me if she was having any worsening symptoms. 48 hours later, the patient noted left lower quadrant pain. She presented emergency department and underwent a follow-up CT scan which demonstrated some extraluminal free air in the upper abdomen and what appeared to be again inflammation consistent with diverticulitis at the proximal sigmoid colon area. The patient's white blood cell count was 12. Due to a penicillin allergy she was admitted with plans for IV antibiotics on clear liquids with low residue diet and to monitor the patient. Past Medical History Past Medical History (Chronic Problems): Chronic Problems Recurrent cold sores (Chronic) HLD (hyperlipidemia) (Chronic) Allergies latex Allergy (Verified 08/22/18 22:57) Rash adhesive Adverse Reaction (Verified 08/22/18 22:57) Rash amoxicillin [From Augmentin] Adverse Reaction (Verified 08/22/18 22:57) Diarrhea clavulanic acid [From Augmentin] Adverse Reaction (Verified 08/22/18 22:57) Diarrhea Home Medications: Ambulatory Orders Medication Instructions Recorded Multivitamins,Therapeutic 1 tablet PO DAILY 02/16/15 Surgical History: appendectomy, - - Tubal Ligation, surgery on both feet Psychiatric History: No pertinent psych hx MUSHROOM CUTTER History: No pertinent MUSHROOM CUTTER history Smoking Status: Never smoker - *Family History Maternal History Items: Stroke - dwight had a stroke at 79 or 80 YOA, - Paternal History Items: No pertinent history Review of Systems Constitutional: Denies: Chills, Fever, Weight Change HEENT: Denies: Head Aches, Sinus Congestion, Sinus Drainage Cardiovascular: Denies: Chest Pain, Palpitations Respiratory: Denies: Cough, Shortness of breath at rest, Sputum production Gastrointestinal: Reports: Abdominal Pain, Nausea. Denies: Vomiting Genitourinary: Denies: Dysuria Musculoskeletal: Denies: Joint Pain, Joint Tenderness Skin: Denies: Rash, Wounds Neurological: Denies: Numbness, Tingling, Focal weakness Psychiatric: Denies: Anxiety, Depression, Homicidal Ideations, Suicidal Ideations Hematologic/ Lymphatic: Denies: Easy Bruising, Easy Bleeding VTE Information - Inpt Only VTE Present on Admission: No Patient Problems: Active and Suspected Problems Abdominal pain (Acute) Pneumoperitoneum (Acute) - Physical Exam General: Alert, Oriented x3, Cooperative Lungs: Clear to auscultation, Normal air movement Cardiovascular: Regular rate, No murmurs Abdomen: Bowel Sounds Present, Soft, Tender - in the left lower quadrant without diffuse peritoneal signs Vital Signs Temp Pulse Resp BP Pulse Ox 99.4 F H 85 14 101/50 L 94 08/23/18 14:52 08/23/18 14:52 08/23/18 14:52 08/23/18 14:52 08/23/18 14:52 Oxygen Flow Rate (L/min) 2 Oxygen Delivery Method Room Air Weight: 60.6 kg Body Mass Index (BMI) 26.1 Intake and Output for Last 24 Hours Intake Total 729 / 729 Output Total 700 / 700 Balance Laboratory Tests Past 24 Hrs Assessment/Plan All Active Problems Abdominal pain (Acute) Pneumoperitoneum (Acute) Renal insufficiency (Acute) Acute onset of vertigo with vomiting and inability to stand (Acute) Acute ataxia (Acute) patient with recurrent diverticulitis, now with diverticulitis questionable secondary to iatrogenic versus post colonoscopic diverticulitis with small perforation and small to moderate extraluminal air. We'll plan for clear liquid diet since patient has been tolerating a diet but otherwise no solid food. We will add Cipro and Flagyl to cover diverticulitis given her penicillin allergy. We will add Protonix given the findings of gastritis and questionable margin of blood on previous endoscopy. We will encourage ambulation and use of incentive spirometer. If patient's symptoms do not worsen would plan for Lovenox for DVT prophylaxis. Hopefully patient will respond to IV antibiotics and then we'll plan for elective resection now approximately [address] If patient worsens may need urgent sigmoid colectomy. 08/23/18 1706 <Electronically signed by Neo Malik MD> Date Neo Malik MD [facility] Signature: Date (if applicable) CC: Miguel Dominguez MD; Neo Malik MD Signed EMERGENCY DEPARTMENT Observed: 08/23/2018 Status: F Source: HURON SUMMARY 12:57 AM [facility] REPOSITORY [facility] Medical Records Department [address] [place] [address] Emergency Department Summary 08/23/18 0042 MR#: [id number] Acct: [id number] Name: SHADIA TURNER Rep #: [id number] : 1940 78 From: Miguel Grider DO PCP: Miguel Dominguez MD Status: REG ER - ER Visit Summary Date of Service: 08/23/18 Chief Complaint: Abdominal pain History of Present Illness: The patient is a 78 F who presents with abdominal pain that began today. Patient states the pain is over the left lower quadrant. Patient describes the pain as aching. Patient states the pain is worse with movement and with palpation. Patient admits to some nausea but denies any vomiting. Patient admits to a fever of 101 at home. Patient denies any diarrhea, melena, or hematochezia. Patient denies any dysuria or urgency. Patient had a recent colonoscopy and endoscopy done by Dr. Malik. Physical Examination: Vital signs are stable. Patient is afebrile. Patient is in no acute distress. Oral mucosa is pink and moist. Neck is supple. Trachea is midline. There is no JVD noted. Heart was regular rate and rhythm. Lungs are clear and equal bilateral. Abdomen is soft. There is tenderness over the left lower quadrant. There is no rebound or guarding noted. Cranial nerves II through XII are intact. There are no focal motor or sensory deficits noted. The remaining physical exam is within normal limits. Test Results: CBC showed a mild leukocytosis of 12.8. Metabolic profile showed a mild hypokalemia of 3.4. Urinalysis does not show any evidence of urinary tract infection. CT scan of the abdomen and pelvis shows some pneumoperitoneum. Emergency Department Course and Treatment: Patient was given Cipro and Flagyl here. Case was discussed with Dr. Malik. He will admit the patient to his service for observation. Patient and family understood and were agreeable with the plan. All questions were answered. Disposition: Admit to hospital Impression: 1. Abdominal pain 2. Pneumoperitoneum This note was generated with [employer] dictation software. It may contain incorrect words, spelling, and punctuation that were not noted in review of the chart prior to signing ED Disposition - Plan for ED Patient: Disposition: Acute Care Hospital [facility] Chief Complaint: Abd Pain Diagnosis: Abdominal pain, Pneumoperitoneum Referrals: Miguel Dominguez MD [Primary Care Provider] - What to do if you have Problems For any increased pain, shortness of breath, bleeding, nausea or vomiting, chest pain, or any unexpected problems, contact your Primary Care Provider. Call [facility] ([phone]) or report to the closest Emergency Room. Call 911 if necessary. 08/23/18 0057 <Electronically signed by Miguel Grider DO> Date Miguel Grider DO Cosigner Signature (If Indicated): Date CC: Miguel Dominguez MD URINALYSIS, COMPLETE Collected: 08/22/2018 Status: F Source: [place] 11:59 PM [facility] REPOSITORY Order Comment: How was Urine Obtained? TYPEWRITER OPERATOR AUTOMATIC TO SPECIFY TYPE CODE TESTS RESULT OUT OF RANGE REFERENCE UNITS LAB L400.3000 Yellow COLOR Normal Yellow LAB L400.3050 Clear Normal CLARITY Clear LAB L400.3200 Normal mg/dl High 50 GLUCOSE, UR LAB L400.3300 Negative mg/dL Normal BILIRUBIN URINE Negative LAB L400.3400 Negative mg/dl Normal KETONE UR Negative LAB L400.3465 1.002-1.030 Normal SP.GR. DIPSTX 1.010 LAB L400.3550 5.0 - 8.0 pH UR Normal 7.0 LAB L400.3600 Negative mg/dl High PROT 30 DIPSTX LAB L400.3700 Normal mg/dl High 1 UROBILI LAB L400.3750 Negative Normal NITRITE UR Negative LAB L400.3780 Negative /ul High OCCULT BLOOD-UR 150 LAB L400.3800 Negative /ul High LEUK 25 ESTERASE LAB L400.4050 0-5 /hpf WBC Normal 0-5 SEEN LAB L400.4100 0-5 /hpf Normal RBC-UA 5-10 SEEN LAB L400.4150 5-10 /hpf SQUAM Normal EPI 10-25 SEEN LAB L400.4300 None Seen /hpf 0 Normal BACTERIA SEEN LAB L400.4350 <or=2+ /hpf 0 Normal MUCUS, URINE SEEN Performed By: #### L400.0001 #### [facility] [address] [place], [place], [address] ABDOMEN/PELVIS WITHOUT Observed: 08/22/2018 Status: F Source: [place] CONT 11:31 PM [facility] REPOSITORY [facility] Imaging Services [address] [place] [address] Abdomen/Pelvis without Cont MR#: [id number] Acct: [id number] Name: SHADIA TURNER Rep #: [id number] : 1940 F 78 From: Leena Love MD PCP: Miguel Dominguez MD Status: REG ER Study: Abdomen/Pelvis without Cont Date of Exam: 08/22/18 Exam# [id number] Ordering Dr: Miguel Grider DO STUDY: CT ABDOMEN AND PELVIS WITHOUT CONTRAST REASON FOR EXAM: Female, 78 years old. Left lower quadrant abdominal pain and nausea. RADIATION DOSAGE (If Supplied By Facility): CTDIvol = ( 6.24 ) mGy, DLP = ( 286.73 ) mGycm TECHNIQUE: Transaxial images were obtained from the dome of the diaphragm to the symphysis pubis without oral contrast, and without intravenous contrast. Sagittal and coronal images were reconstructed. Individualized dose optimization techniques were used for this CT. COMPARISON: None. FINDINGS: There is patchy left basilar airspace consolidation and atelectasis. The presumably right basilar dependent atelectasis. There is also subsegmental atelectasis within the right middle lobe and right lower lobe. The visualized portions of the heart are within normal limits. Normal liver. Normal gallbladder and extrahepatic biliary system. Normal spleen. Normal pancreas. There appears to be enlargement of the left adrenal gland with what may represent a nodule measuring up to 2 cm in greatest dimension. The right adrenal gland has a normal appearance. There appears to be a small cyst arising from the lateral cortex of the right kidney measuring approximately 1 cm in greatest dimension. There is also prominence of the left renal collecting system possibly related to extrarenal pelvis. There is no definite evidence for hydronephrosis, hydroureter or radiopaque ureteral calculi. Multiple pelvic calcifications are probably phleboliths. There is a small hiatal hernia. There are multiple foci of pneumoperitoneum adjacent to the liver and in the left upper quadrant probably related to perforated viscus. There is no evidence for dilated bowel or ascites. There are acute inflammatory changes in the left lower quadrant adjacent to the proximal sigmoid colon and distal descending colon where there are multiple diverticula. There may be some associated diverticulitis in this area. Appears to be perforation adjacent to the colon in this area with additional pneumoperitoneum. There is non-visualization of the appendix. There is patchy atherosclerotic calcification of the abdominal aorta, without a demonstrated aneurysm. Normal inferior vena cava. Normal retroperitoneum. Normal urinary bladder. There is atrophy of the uterus. There is a small umbilical hernia containing fat. The bones appear osteopenic. There is degenerative disc disease at L5-S1. CT/Abdomen/Pelvis without Cont IMPRESSION: 1. Pneumoperitoneum probably related to perforation located at the proximal sigmoid and distal descending colon. 2. There is acute inflammation in the left lower quadrant probably related to sequela of acute diverticulitis. 3. Bilateral basilar dependent and segmental atelectasis. N.B. : The above information has been verbally conveyed by Leena Love MD to Miguel Grider on 08/23/2018 00:27:48 (ET). Electronically Signed: Leena Love MD at 0:43 EST , Service support , CC: Miguel Grider DO; Miguel Dominguez MD Reimbursement Auditor: Signed CBC W/DIFF, AUTOMATED Collected: 08/22/2018 Status: F Source: [place] 11:00 PM [facility] REPOSITORY TYPE CODE TESTS RESULT OUT OF RANGE REFERENCE UNITS LAB L100.1000 4.4-11.0 K/mm3 High WBC 12.8 LAB L100.1200 4.2-5.4 M/mm3 Normal RBC 4.86 LAB L100.1300 12.0-15.0 g/dl Normal HGB 14.8 LAB L100.1400 37-47 % Normal HCT 44.2 LAB L100.1500 81-99 fL Normal MCV 90.9 LAB L100.1600 27.0-32.0 pg Normal MCH 30.5 LAB L100.1700 32-36 g/gl Normal MCHC 33.5 LAB L100.1810 11.6-14.6 % Normal RDW CV 14.2 LAB L100.1820 35.1-43.9 fl High RDW SD 47.2 LAB L100.1900 150-450 K/mm3 Normal PLT 218 LAB L100.2000 6.2-12.0 fl Normal MPV 11.7 LAB L100.2100 47-70 % High NEUT% 82.9 LAB L100.2200 19-41 % Low LY% 9.1 LAB L100.2300 0-10 % Normal MONO% 7.2 LAB L100.2400 0-5 % Normal EO% 0.5 LAB L100.2500 0-1 % Normal BASO% 0.2 LAB L100.2550 0.0-0.9 % Normal IM GRAN % 0.100 Result Comment: IG% - Immature Granulocytes (promyelocytes, myelocytes and metamyelocytes) > 1% indicates that a LEFT SHIFT is Present. LAB L100.2620 2.0-7.7 X10 3/uL High Absolute Neut 10.6 LAB L100.2720 0.83-4.51 X10 3/ul Normal Absolute Lymph 1.16 Performed By: #### L100.0100 #### [facility] [address] [place], [address] COMPREHENSIVE METABOLIC Collected: 08/22/2018 Status: F Source: [facility] 11:00 PM [facility] REPOSITORY TYPE CODE TESTS RESULT OUT OF RANGE REFERENCE UNITS LAB L501.0100 74-106 mg/dL High GLU 155 Result Comment: Fasting Glucose result greater than or equal to 126 mg/dL suggests DIABETES MELLITUS per A.D.A. criteria. Please note revised GLUCOSE reference range effective 2017. LAB L501.1000 7-18 mg/dL Normal BUN 11 LAB L501.1100 0.55-1.02 mg/dL Normal CREAT,SERUM 0.97 Result Comment: The validity of the calculated GFR AND GFRAA in patients over 70 years has not been determined. Clinical correlation is essential. LAB L501.1110 >60 mL/min Low EST GFR 59 Result Comment: Non- GFR Calc LAB L501.1115 >60 mL/min Normal EST GFR - AA 71 Result Comment: GFR Calc LAB L501.1255 ml/min Normal Estimated CRCL 34.33 LAB L501.1300 10-20 RATIO Normal BUN/CRE 11.3 LAB L501.1500 6.4-8. g/dL Normal 2 T PROT 7.0 LAB L501.1800 3.2-5. g/dL Normal 0 ALB 3.3 LAB L501.1950 2.2-4. g/dL Normal 2 GLOB 3.7 LAB L501.2000 0.9-2. RATIO Normal 4 A/G 0.9 LAB L501.2200 8.5-10 mg/dL Normal .1 CA 8.6 LAB L501.4100 15-37 U/L Normal AST 18 LAB L501.4305 45-117 U/L Normal ALK P 68 LAB L501.4405 13-56 U/L Normal ALT 18 LAB L501.4600 0.20-1 mg/dL Normal .00 T BILI 0.40 LAB L501.5300 136-14 mmol/L Normal 5 NA 140 LAB L501.5600 3.5-5. mmol/L Low 1 K 3.4 LAB L501.5900 98-107 mmol/L Normal CL 106 LAB L501.6100 21.0-3 mmol/L Normal 2.0 CO2 24.0 LAB L501.6200 5-15 Normal GAP 10 Performed By: #### L500.4050, L501.2450 #### [facility] [address] [place], [address] LIPASE Collected: 08/22/2018 Status: F Source: [place] 11:00 PM [facility] REPOSITORY TYPE CODE TESTS RESULT OUT OF RANGE REFERENCE UNITS LAB L501.2450 73-393 U/L Normal LIPASE 115 Performed By: #### L500.4050, L501.2450 #### [facility] [address] [place], [address] CHEST 1 VIEW Observed: 08/20/2018 Status: F Source: [place] (PORTABLE) 3:11 PM [facility] REPOSITORY [facility] Imaging Services [address] [place] [id number] Chest 1 View (Portable) MR#: [id number] Acct: [id number] Name: SHADIA TURNER Rio Rep #: [id number] : 1940 F 78 From: Italia Smyth MD PCP: Miguel Dominguez MD Status: [facility] Study: Chest 1 View (Portable) Date of Exam: 08/20/18 Exam# [id number] Ordering Dr: Neo Malik MD STUDY: X-RAY CHEST REASON FOR EXAM: Female, 78 years old. Status post endoscopy evaluate for free air TECHNIQUE: Single AP portable view of the chest. COMPARISON: None. FINDINGS: There is a rim of gas underlying the midepigastric region and underlying the bilateral hemidiaphragms portion of which may represent a amount of gas within the stomach however free air is not excluded based on this study. Minimal bilateral lower lobe atelectasis. Normal size heart. Normal mediastinum and andrez. Normal visualized pulmonary arteries. Normal visualized aortic arch and descending thoracic aorta. There are diffuse degenerative changes of the visualized thoracic spine. Normal visualized ribs, clavicles, and shoulders. There is visualized vascular calcifications in the left upper quadrant compatible with splenic calcification. RAD/Chest 1 View (Portable) IMPRESSION: There is a rim of gas underlying the hemidiaphragms bilaterally raises concern for pneumoperitoneum recommend CT scan of the abdomen and pelvis. This can be performed without contrast to evaluate for free air. N.B. : Dr Malik , AA, confirmed on 08/20/2018 19:30:29 (ET) that the referring physician received the results and did not require a verbal consultation. Electronically Signed: Italia Smyth MD at 17:32 EST Tel , Service support , CC: Miguel Dominguez MD; Neo Malik MD Reimbursement Auditor: Signed ABDOMEN SINGLE VIEW Observed: 08/20/2018 Status: F Source: [place] (PORTABLE) 2:47 PM [facility] REPOSITORY [facility] Imaging Services [address] [place] [id number] Abdomen Single View (Portable) MR#: [id number] Acct: [id number] Name: SHADIA TURNER Rep #: [id number] : 1940 F 78 From: Mykel Chowdhury MD PCP: Miguel Dominguez MD Status: [facility] Study: Abdomen Single View (Portable) Date of Exam: 08/20/18 Exam# [id number] Ordering Dr: Neo Malik MD STUDY: X-RAY - ABDOMEN/PELVIS REASON FOR EXAM: Female, 78 years old. Pain after endoscope TECHNIQUE: AP supine and upright views of the abdomen and pelvis. COMPARISON: None. FINDINGS: Normal visualized lung bases. There is an unremarkable bowel gas pattern. There is no demonstrated free abdominal air. The visualized liver, spleen and kidneys are grossly normal in size and morphology. There are calcified phleboliths in the pelvis. There are diffuse degenerative changes of the visualized lumbar spine. RAD/Abdomen Single View (Portable) IMPRESSION: No acute findings Electronically Signed: Leo Chowdhury MD at 16:04 EST , Service support , CC: Miguel Dominguez MD; Neo Malik MD Reimbursement Auditor: Signed OPERATIVE REPORT - Observed: 08/20/2018 Status: F Source: [facility] ENDOSCOPY 2:28 PM [facility] REPOSITORY [facility] Medical Records Department [address] [place] [address] Operative Report - Endoscopy MR#: [id number] Acct: [id number] Name: SHADIA TURNER Rep #: [id number] : 1940 78 From: Neo Malik MD PCP: Miguel Dominguez MD Status: [facility] Patient Name: Shadia Turner Procedure Date: 08/20/2018 12:50 PM Date of : 1940 Age: 78 Procedure: Colonoscopy Indications: Follow-up of diverticulitis Providers: Neo Malik MD Referring MD: Neo Malik MD Medicines: Monitored Anesthesia Care Patient Profile: This is a 78 year old female. Refer to note in patient chart for documentation of history and physical. Last Colonoscopy: within the past 3 months. Complications: No immediate complications. Procedure: Pre-Anesthesia Assessment: - Prior to the procedure, a History and Physical was performed, and patient medications and allergies were reviewed. The patient is competent. The risks and benefits of the procedure and the sedation options and risks were discussed with the patient. All questions were answered and informed consent was obtained. Patient identification and proposed procedure were verified by the physician, the nurse and the hospital superintendent in the procedure room. Mental Status Examination: alert and oriented. Airway Examination: normal oropharyngeal airway and neck mobility. Respiratory Examination: clear to auscultation. CV Examination: normal. Prophylactic Antibiotics: The patient does not require prophylactic antibiotics. Prior Anticoagulants: The patient has taken no previous anticoagulant or antiplatelet agents. ASA Grade Assessment: II - A patient with mild systemic disease. After reviewing the risks and benefits, the patient was deemed in satisfactory condition to undergo the procedure. The anesthesia plan was to use monitored anesthesia care (MAC). Immediately prior to administration of medications, the patient was re-assessed for adequacy to receive sedatives. The heart rate, respiratory rate, oxygen saturations, blood pressure, adequacy of pulmonary ventilation, and response to care were monitored throughout the procedure. The physical status of the patient was re-assessed after the procedure. After I obtained informed consent, the scope was passed under direct vision. Throughout the procedure, the patient's blood pressure, pulse, and oxygen saturations were monitored continuously. The Colonoscope was introduced through the anus and advanced to the cecum, identified by the appendiceal orifice, ileocecal valve and palpation. The colonoscopy was technically difficult and complex due to a redundant colon. Successful completion of the procedure was aided by changing the patient to a supine position. The patient tolerated the procedure well. Scope In: 1:30:07 PM Scope Withdrawal Time 0 hours 18 minutes 11 seconds Scope Out: 2:03:08 PM Total Procedure Duration Time 0 hours 33 minutes 1 second Findings: The perianal and digital rectal examinations were normal. Many small and large-mouthed diverticula were found in the sigmoid colon. A benign-appearing, intrinsic mild stenosis measuring 1 cm (in length) x 1.3 cm (inner diameter) was found in the sigmoid colon and was traversed. The retroflexed view of the distal rectum and anal verge was normal and showed no anal or rectal abnormalities. Impression: - Diverticulosis in the sigmoid colon. - Stricture in the sigmoid colon. - The distal rectum and anal verge are normal on retroflexion view. - No specimens collected. Recommendation: - Discharge patient to home. - Resume previous diet. - Continue present medications. - Return to my office in 1 week. - Repeat colonoscopy is recommended. The colonoscopy date will be determined after pathology results from today's exam become available for review. Procedure Code(s): --- Professional --- 04553, Colonoscopy, flexible; diagnostic, including collection of specimen(s) by brushing or washing, when performed (separate procedure) CPT copyright 2017 [employer]. All rights reserved. The codes documented in this report are preliminary and upon sinter feeder review may be revised to meet current compliance requirements. Neo Malik MD 08/20/2018 2:28:11 PM This report has been signed electronically. Number of Addenda: 0 Note Initiated On: 08/20/2018 12:50 PM 08/20/18 1428 Date Neo Malik MD Cosigner Signature: Date (if indicated) CC: Miguel Dominguez MD; Neo Malik MD Date Dictated: 08/20/18 1250 Date Transcribed: Reimbursement Auditor: MARTIN Signed OPERATIVE REPORT - Observed: 08/20/2018 Status: F Source: [facility] 2:23 PM [facility] REPOSITORY [facility] Medical Records Department [address] [place] [address] Operative Report - Endoscopy MR#: [id number] Acct: [id number] Name: SHADIA TURNER Rep #: [id number] : 1940 78 From: Neo Malik MD PCP: Miguel Dominguez MD Status: REG [facility] Patient Name: Shadia Turner Procedure Date: 08/20/2018 2:06 PM Date of : 1940 Age: 78 Procedure: Upper GI endoscopy Indications: Suspected upper gastrointestinal bleeding Providers: Neo Malik MD Referring MD: Neo Malik MD Medicines: Monitored Anesthesia Care Patient Profile: This is a 78 year old female. Refer to note in patient chart for documentation of history and physical. Complications: No immediate complications. Procedure: Pre-Anesthesia Assessment: - Prior to the procedure, a History and Physical was performed, and patient medications and allergies were reviewed. The patient is competent. The risks and benefits of the procedure and the sedation options and risks were discussed with the patient. All questions were answered and informed consent was obtained. Patient identification and proposed procedure were verified by the physician, the nurse and the hospital superintendent in the procedure room. Mental Status Examination: alert and oriented. Airway Examination: normal oropharyngeal airway and neck mobility. Respiratory Examination: clear to auscultation. CV Examination: normal. ASA Grade Assessment: II - A patient with mild systemic disease. After reviewing the risks and benefits, the patient was deemed in satisfactory condition to undergo the procedure. The anesthesia plan was to use monitored anesthesia care (MAC). Immediately prior to administration of medications, the patient was re-assessed for adequacy to receive sedatives. The heart rate, respiratory rate, oxygen saturations, blood pressure, adequacy of pulmonary ventilation, and response to care were monitored throughout the procedure. The physical status of the patient was re-assessed after the procedure. After obtaining informed consent, the endoscope was passed under direct vision. Throughout the procedure, the patient's blood pressure, pulse, and oxygen saturations were monitored continuously. The gastroscope was introduced through the mouth, and advanced to the jejunum. The upper GI endoscopy was accomplished without difficulty. Scope In: 2:07:32 PM Scope Out: 2:11:48 PM Total Procedure Duration Time 0 hours 4 minutes 16 seconds Findings: The examined jejunum was normal. Scattered mild inflammation characterized by adherent blood and erythema was found in the gastric body. Biopsies were taken with a cold forceps for histology. A small non-bleeding Patricia-Ybarra tear with no stigmata of recent bleeding was found. Multiple small sessile polyps with no bleeding and no stigmata of recent bleeding were found in the gastric fundus. The polyp was removed with a cold biopsy forceps. Resection and retrieval were complete. Impression: - Normal examined jejunum. - Gastritis. Biopsied. - Patricia-Ybarra tear. - Multiple gastric polyps. Resected and retrieved. Recommendation: - Return to my office in 1 week. - Continue present medications. Procedure Code(s): --- Professional --- 83781, Esophagogastroduodenoscopy, flexible, transoral; with biopsy, single or multiple CPT copyright 2017 [employer]. All rights reserved. The codes documented in this report are preliminary and upon sinter feeder review may be revised to meet current compliance requirements. Neo Malik MD 08/20/2018 2:22:26 PM This report has been signed electronically. Number of Addenda: 0 Note Initiated On: 08/20/2018 2:06 PM 08/20/18 1422 Date Neo Malik MD Cosigner Signature: Date (if indicated) CC: Miguel Dominguez MD; Neo Malik MD Date Dictated: 08/20/18 1406 Date Transcribed: Reimbursement Auditor: RG Signed COLON BIOPSY (CHOOSE Observed: 08/20/2018 Status: F Source: [facility]) 1:00 PM [facility] REPOSITORY Patient: SHADIA TURNER : 1940 (78/F) Acct Num: [id number] Phys: Neo Malik MD Unit Num: [id number] Loc: EN Specimen: [id number] Received: 08/20/18 6349 Spec Type: COLON BX TISSUES 1 TISSUES: A. Cecum, NOS B. Gastric mucous membrane C. Gastric mucous membrane COMMENT B. The results of immunohistochemistry for Helicobacter pylori will be reported separately ([id number]). GROSS DESCRIPTION A - Received in fixative is one container labeled with the patient's name and designated cecal biopsy. The specimen consists of one irregular fragment of light sam soft tissue that measures 0.2 x 0.1 x 0.1 cm. The specimen is totally submitted in one cassette. B - Received in fixative is one container labeled with the patient's name and designated antrum. The specimen consists of one irregular fragment of light sam soft tissue that measures 0.3 x 0.2 x 0.1 cm. The specimen is totally submitted in one cassette. C - Received in fixative is one container labeled with the patient's name and designated biopsy of fundic polyp. The specimen consists of one irregular fragment of light sam soft tissue that measures 0.2 x 0.1 x 0.1 cm. The specimen is totally submitted in one cassette. / AM:martin 08/21/18 TC:3 CPT: 14333 x3 HEADER OPERATION: [place] DIAGNOSIS: Barium enema with possible malignancy TISSUE SUBMITTED: A - Cecal biopsy, B - Antrum biopsy for H. pylori and path, C - Biopsy of fundic polyp MICROSCOPIC DESCRIPTION Slides are reviewed. MICROSCOPIC DIAGNOSIS A. Cecum, biopsy: Colonic mucosa with no significant pathologic change. B. Gastric antrum, biopsy: Mild chronic inflammation. C. Gastric fundus, biopsy: Fundic gland polyp. AM:martin 08/22/18 Signed Elmer Beasley, 08/22/18 <signature on file> Performed By: #### PCOLBX #### [facility] [address] [place] [address], [address] IMMUNOHISTOCHEMISTRY Observed: 08/20/2018 Status: F Source: [facility] 1:00 PM [facility] REPOSITORY Patient: SHADIA TURNER : 1940 (78/F) Acct Num: [id number] Phys: Neo Malik MD Unit Num: [id number] Loc: EN Specimen: [id number] Received: 08/21/18 - 1143 Spec Type: IMMUNO TISSUES 1 TISSUES: B. Stomach, NOS SPECIMEN INFORMATION: Tissue Source: B - Antrum biopsy Clinical Info: Possible malignancy Specimen Number: [id number] CPT code: 68721 METHODOLOGY: Deparaffinized sections of prefer/formalin-fixed tissue or PAP/DQ stained slides are incubated with monoclonal/polyclonal antibodies/oligonucleotide probes. Localization is made via biotin free immunoperoxidase method. Appropriate controls are performed and reacted as expected. Results on target cell population are indicated in the following table: RESULTS: ANTIBODY / CLONE RESULT Block B H Pylori (polyclonal) negative These tests were developed and their performance characteristics determined by [facility]. They may not have been cleared or approved by the U.S. Food and Drug Administration. The FDA has determined that such clearance or approval is not necessary. INTERPRETATION: B. Antrum, biopsy: Negative for Helicobacter pylori organisms. SJ:martin 08/23/18 PHYSICIAN AND INSTITUTION [place] [phone] Signed Filippo Vallejo MD 08/23/18 <signature on file> Performed By: #### PIMM #### [facility] [address] [place] [address]. [place], [address] HISTORY AND PHYSICAL Observed: 08/20/2018 Status: F Source: [facility] 12:47 PM [facility] REPOSITORY [facility] Medical Records Department [address] [place] [address] History and Physical 08/20/18 1246 MR#: [id number] Acct: [id number] Name: SHADIA TURNER Rep #: [id number] : 1940 78 From: Neo Malik MD PCP: Miguel Dominguez MD Status: REG [facility] Y Location: EN History and Physical Date of Admission: 08/20/18 HISTORY AND PHYSICAL - COLON RESECTION FOR RECURRENT DIVERTICULITIS Shadia Alfordener 1940 August 07, 2018 REFERRING PHYSICIAN: Miguel Dominguez MD CHIEF COMPLAINT: LLQ pain HPI: The patient is a 78 year old female with a complaint of recurrent LLQ pain. Shadia is a patient I am following for diverticulitis. The patient is a 78 year old female referred for diverticulitis and questionable pneumaturia. Shadia notes a 6-month history of abdominal complaints. She notes a pressure sensation and discomfort in her left lower abdomen intermittently, does not radiate, varies in intensity-states currently 2/10. Notes pressure with having a bowel movement and feels that she passes air when she urinates. Notes recently when wiping after urination she sees stool on the paper. Denies frequent UTIs. She does note a recent history of low-grade fever-100.5. Was evaluated by her PCP who ordered UA and bloodwork as well as CT scan. [facility], positive for occult blood as well as mixed gram positive organisms. CBC was within normal limits. Shadia has undergone prior endoscopy, thinks this was in 2007, by Dr. Lee. She denies a history of polyps. Denies family history of colon cancer. Patient states that in the past she had episodes suspected to be diverticulitis not formally diagnosed. 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 We obtained a CT scan of the abdomen and pelvis. This demonstated mild diverticulitis in the descending colon/proximal sigmoid. There was no colon approximate to the bladder, no bladder thickening and no air in the bladder I performed lower endoscopy on July 09, 2018. The patient was found to have significant tortuosity and diverticulosis which may be concerned for blindly try and advance the scope through the segment through the risk of injury. Endoscopy was aborted. Endoscopically there were no visualized area suspicious for malignancy. A follow-up barium enema was obtained. This demonstrated diverticulosis in the left hemicolon. There was also noted to be a focal area of narrowing with overhanging edges in the midportion of the sigmoid colon. It was listed as a neoplastic process should be ruled out and that there was no evidence obstruction. Reviewing the barium enema in concert with the CT scan I do see what Dr. Haywood is noting. I agree this is most likely a diverticular narrowing segment but also agree that I cannot rule out a malignancy in this area. She returns now with plans to repeat a colonoscopy and if I am unable to get past the area of concern and prove this is nonsignificant then would plan for laparoscopic sigmoid resection the following day The patient is being seen by me today at the request of Dr. Miguel Dominguez MD for my opinion and advice regarding recurring diverticulitis and now left lower quadrant pain/questionable stricture. PAST MEDICAL HISTORY PAST MEDICAL HISTORY Diagnosis Date Asthma as a child Osteoporosis Snoring PAST SURGICAL HISTORY PAST SURGICAL HISTORY Procedure Laterality Date APPENDECTOMY COLONOSCOP W/ OR W/O BR SH SPEC Colonoscopy COLONOSCOP W/ OR W/O BRS SPEC 07/09/2018 Colonoscopy LAP , SURG ENTEROLYSIS 02/22/[address] Wharton LIGATE FALLOPIAN TUBE P AST SURGICAL HISTORY OF 10/2006 right foot surgery PAST SURGICAL HISTORY OF 06/11 l eft foot surgery CURRENT MEDICATIONS Current Outpatient Prescriptions: gabapentin (NEURONTIN) 100 mg capsule TAKE 1 CAPSULE BY MOUTH THREE TIMES DAILY WITH A MEAL...AND 3 CAPSULES AT BEDTIME Disp: Rfl: 0 magnesium oxide 200 m g magnesium tab Take by mouth. Disp: Rfl: aspirin, enteric coated (ASPIRIN, ENTERIC COATED) 81 mg EC tablet Take 81 mg by mouth once daily. Disp: Rfl: ERGOCALCIFEROL, VITAMIN D2, (VAMSI MIN D ORAL) Takeby mouth. Disp: Rfl: CALCIUM 500 MG TAB Take one(1) tablet twice daily. w/ v it D Disp: Rfl: 0 MULTIVITAMIN TAB Take one(1) tablet daily. Disp: Rfl: 0 neomycin 500 mg t ablet Take 2 tablets by mouth four times daily. 2 TABLETS AT 6, 8 ,AND 10 PM Disp: 6 tablet Rfl : 0 metroNIDAZOLE (FLAGYL) 500 mg tablet Take 1 tablet by mouth three times daily. 2 TABLETS A T 6, 8, AND 10 PM Disp: 6 tablet Rfl: 0 No current facility- administered medications for thi s visit. 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 Social History Main Topics Smoking status: Never SmokerSmokeless tobacco: Never Used Alcohol use: No Drug use: No Sexual activity: Yes Partners w ith: Male control/protection: Tubal Ligation Comment: Postmenopausal FAMILY HISTORY: FAMILY HISTORY FAMILY HISTORY Problem Relation Age of Onset Hypertension Mother Osteoporosis Mother other (Dementia) Mother other (lung cancer) Father smoker REVIEW OF SYMPTOMS: The review of systems data was entered by the nurse and reviewed by me Nursing Notes: Demetrius Greenwood LPN 08/06/2018 1:40 PM Signed REVIEW OF SYSTEMS: General: The patient denies fatigue, denies weight loss, denies weight gain, denies feeling hot, and denies feelings of cold. Eyes: The patient denies glaucoma, denies eye injury/surgery, does not wear glasses or contacts. Ear/Nose/Throat: The patient denies allergies, NOTES hayfever, denies ear infections, and denies bloody noses. Cardiovascular: The patient denies chest pain, denies heart disease, denies high blood pressure,denies cardiac stent, denies prior heart attack, denies irregular heart beat, denies high cholesterol, denies poor circulation, denies heart failure, other cardiac issues, denies claudication, denies cold feet, denies peripheral arterial stent. Respiratory: The patient denies tuberculosis, denies pneumonia, denies frequent cough, denies pulmonary embolism, denies shortness of breath, and denies coughing up blood. Gastrointestinal: The patient denies difficulty swallowing, denies acid reflux, denies ulcers, denies vomiting, denies jaundice/hepatitis, denies gallbladder problems, denies black or tarry stools, denies hemorrhoids, denies bleeding from rectum, denies diverticulitis, denies constipation, denies diarrhea, NOTES loss of stool control, and denies hernias. Kidney/Bladder: The patient denies kidney stones, denies urine infections, and denies bloody urine. Skin: The patient denies a history of skin cancer, denies bleeding/changing moles, and denies a history of skin rash. Neurologic: The patient denies a history of epilepsy/convulsions, denies headaches, denies head/spinal injuries, and denies stroke/TIA. Psychiatric: The patient denies psychiatric medications, denies depression, and denies voices, denies substance abuse. Endocrine: The patient denies thyroid disorders, denies diabetes, and denies hormonal problems. Hematologic: The patient denies a history of bruising, denies bleeding, and denies anemia, denies blood clots. Infections: The patient denies a history of measles and mumps, denies rheumatic fever, and denies sexually transmitted diseases. Musculoskeletal: The patient denies back pain/injury, denies back problems, denies sciatica, denies knee/foot trouble, denies arthritis, or denies gout. PHYSICAL EXAMINATION: General: The patient is 78 year old female, well nourished, well hydrated in no acute distress. The patient is oriented to time, place, and person. VITALS: BP 138/62 HEENT: Normal cephalic, ataumatic, pupils are equally round, sclera are anicteric, mucous membranes are moist, oropharynx is clear. Neck has no masses, asymmetry or lymphadenopathy. Thyroid is unremarkable. Respiratory: Clear to auscultation and percussion. Normal respiratory excursion and pattern. Cardiac: Examination is regular rate and rhythm. Abdominal exam: Soft, nontender, with no palpable masses. No hepatosplenomegaly. No palpable hernias. Rectal exam: exam deferred Extremities: no clubbing, cyanosis or edema. No adenopathy. LABORATORY VALUES: As Noted RADIOLOGIC STUDIES: As Noted Assessment IMPRESSION: Recurring diverticulitis, unable to complete colonoscopy and barium enema suspicious for stenosis versus malignancy? PLAN: We extensively discussed the diagnosis and discussed the options. The patient has elected to undergo colon resection we are unable to prove that the abnormality is nonsignificant and nonmalignant. We'll plan for bowel prep Sunday night with colonoscopy Sunday. The patient understands we will try more aggressively to get past the area of tortuosity to the area of concern on barium enema and this increases the risk of injury to the colon and perforation requiring emergent surgery that day. We discussed the risks and benefits of the planned endoscopy. I have informed the patient that complications can occur including failure to complete the endoscopy and perforation. The patient had the opportunity to ask questions concerning the planned endoscopy. My staff has also explained the procedure to the patient in understandable terms and has given the patient printed material concerning the procedure. The patient freely consents to surgery. If I am unable to get beyond that area or if the area does appear chronically narrowed and/or suspicious for malignancy, then I plan to perform a Laparoscopic Low Anterior Resection - 75117-126. The planned surgical procedure was discussed extensively with the patient. The risks, benefits, anticipated outcomes and possible complications and alternatives were discussed. My staff has also explained the procedure in understandable terms and the patient was given the option to take printed material concerning the planned procedure. The patient had the opportunity to ask questions concerning the planned procedure. The patient freely consents to the planned procedure. I will plan for outpatient antibiotic preparation including Neomycin and Flagyl 1gm each at 6,8, and 10pm the night before surgery. Anticipated Surgical Procedure/ CPT Code: Laparoscopic Low Anterior Resection - 70726-740 Anticipated Anesthetic: General Patient weight: Blood pressure 138/62, pulse 88. BMI: There is no height or weight on file to calculate BMI. 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 Miguel Dominguez MD indicating the above finding for this patient. Return to Clinic: The patient is instructed to follow-up with me 1 week post operatively. Neo Malik MD 08/20/18 1247 <Electronically signed by Neo Malik MD> Date Neo Malik MD Cosigner Signature: Date (if applicable) CC: Miguel Dominguez MD; Neo Malik MD Signed CNOP Observed: 08/20/2018 Status: COMPLETED Source: [place] 12:00 AM [facility] REPOSITORY Operative Note (Enc) (GENSWS) Progress Notes: Neo Malik MD 08/24/2018 2:58 PM Signed OPERATIVE NOTATION FOR [facility] SURGICAL PROCEDURE. August 20, 2018 Shadia Alfordener 1940 [id number] female PROCEDURE: COLONOSCOPY - [id number] SURGEON: Gerardo Malik M.D. FACS DRAFTER SEISMOGRAPH: None DEPT: WQ PROVIDER: [email or web address]=YikijayNeo Malik MD POS: [id number] DIAGNOSIS: (K57.92) Diverticulitis (primary encounter diagnosis) ASA CLASS: 3 - Severe FINDINGS: COMPLICATIONS: None PMHx - PAST MEDICAL HISTORY Diagnosis Date - Asthma as a child - Osteoporosis - Snoring COMORBIDITIES - None Post Op Occurrences - None Wound Classification - Contaminated Operative note dictated in the [facility] dictation system. Neo Malik MD Encounter Status:Closed by NEO MALIK MD on 08/24/18 12 LEAD ELECTROCARDIOGRAM Observed: 08/16/2018 Status: F Source: [facility] 10:11 AM [facility] REPOSITORY [facility] Cardiovascular Services [address] [place] [address] EKG - [facility] 08/14/18 160 MR#: [id number] Acct: [id number] Name: SHADIA TURNER Rep #: [id number] : 1940 78 From: Kishan Rosen MD Attending Dr: Neo Malik MD Status: PRE IN Ordering Dr: Bernabe Wharton MD Date: 08/14/18 Location: [facility] Sex: F C Admitted: Test Reason : Blood Pressure : / mmHG Vent. Rate : 074 BPM Atrial Rate : 074 BPM P-R Int : 162 ms QRS Dur : 082 ms QT Int : 396 ms P-R-T Axes : 072 -07 034 degrees QTc Int : 439 ms Normal sinus rhythm Normal ECG Confirmed by KISHAN ROSEN MD ([id number]), web content editor JUVENAL LOVE ([id number]) on 08/16/2018 10:10:36 AM Referred By: Neo Malik Confirmed By:KISHAN ROSEN MD 08/16/18 1010 Date Kishan Rosen MD CC: Bernabe Wharton MD; Miguel Dominguez MD; Neo Malik MD Date Dictated: 08/14/18 1602 Date Transcribed: 08/14/181601 Reimbursement Auditor: Signed PROGRESS Observed: 08/07/2018 Status: COMPLETED Source: [place] 10:17 AM [facility] REPOSITORY O ID: [id number] Author: Neo Malik Service: (none) Author Type: Physician Type: Progress Notes Filed: 08/07/2018 10:24 AM Note Text: HISTORY AND PHYSICAL - COLON RESECTION FOR RECURRENT DIVERTICULITIS Shadia Turner 1940 August 07, 2018 REFERRING PHYSICIAN: Miguel Dominguez MD CHIEF COMPLAINT: LLQ pain HPI: The patient is a 78 year old female with a complaint of recurrent LLQ pain. Shadia is a patient I am following for diverticulitis. The patient is a 78 year old female referred for diverticulitis and questionable pneumaturia. Shadia notes a 6-month history of abdominal complaints. She notes a pressure sensation and discomfort in her left lower abdomen intermittently, does not radiate, varies in intensity-states currently 2/10. Notes pressure with having a bowel movement and feels that she passes air when she urinates. Notes recently when wiping after urination she sees stool on the paper. Denies frequent UTIs. She does note a recent history of low-grade fever-100.5. Was evaluated by her PCP who ordered UA and bloodwork as well as CT scan. [facility], positive for occult blood as well as mixed gram positive organisms. CBC was within normal limits. Shadia has undergone prior endoscopy, thinks this was in 2007, by Dr. Lee. She denies a history of polyps. Denies family history of colon cancer. Patient states that in the past she had episodes suspected to be diverticulitis not formally diagnosed. 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 We obtained a CT scan of the abdomen and pelvis. This demonstated mild diverticulitis in the descending colon/proximal sigmoid. There was no colon approximate to the bladder, no bladder thickening and no air in the bladder I performed lower endoscopy on July 09, 2018. The patient was found to have significant tortuosity and diverticulosis which may be concerned for blindly try and advance the scope through the segment through the risk of injury. Endoscopy was aborted. Endoscopically there were no visualized area suspicious for malignancy. A follow-up barium enema was obtained. This demonstrated diverticulosis in the left hemicolon. There was also noted to be a focal area of narrowing with overhanging edges in the midportion of the sigmoid colon. It was listed as a neoplastic process should be ruled out and that there was no evidence obstruction. Reviewing the barium enema in concert with the CT scan I do see what Dr. Haywood is noting. I agree this is most likely a diverticular narrowing segment but also agree that I cannot rule out a malignancy in this area. She returns now with plans to repeat a colonoscopy and if I am unable to get past the area of concern and prove this is nonsignificant then would plan for laparoscopic sigmoid resection the following day The patient is being seen by me today at the request of Dr. Miguel Dominguez MD for my opinion and advice regarding recurring diverticulitis and now left lower quadrant pain/questionable stricture. PAST MEDICAL HISTORY Diagnosis Date - Asthma as a child - Osteoporosis - Snoring PAST SURGICAL HISTORY Procedure Laterality Date - APPENDECTOMY - COLONOSCOP W/ OR W/O BRSH SPEC Colonoscopy - COLONOSCOP W/ OR W/O [facility]SH SPEC 07/09/2018 Colonoscopy - LAP, SURG ENTEROLYSIS 02/22/[address] Wharton - LIGATE FALLOPIAN TUBE - PAST SURGICAL HISTORY OF 10/2006 right foot surgery - PAST SURGICAL HISTORY OF 06/11 left foot surgery Current Outpatient Prescriptions: gabapentin (NEURONTIN) 100 mg capsule TAKE 1 CAPSULE BY MOUTH THREE TIMES DAILY WITH A MEAL...AND 3 CAPSULES AT BEDTIME Disp: Rfl: 0 magnesium oxide 200 mg magnesium tab Take by mouth. Disp: Rfl: aspirin, enteric coated (ASPIRIN, ENTERIC COATED) 81 mg EC tablet Take 81 mg by mouth once daily. Disp: Rfl: ERGOCALCIFEROL, VITAMIN D2, (VITAMIN D ORAL) Take by mouth. Disp: Rfl: CALCIUM 500 MG TAB Take one(1) tablet twice daily. w/ vit D Disp: Rfl: 0 MULTIVITAMIN TAB Take one(1) tablet daily. Disp: Rfl: 0 neomycin 500 mg tablet Take 2 tablets by mouth four times daily. 2 TABLETS AT 6, 8 ,AND 10 PM Disp: 6 tablet Rfl: 0 metroNIDAZOLE (FLAGYL) 500 mg tablet Take 1 tablet by mouth three times daily. 2 TABLETS AT 6, 8, AND 10 PM Disp: 6 tablet Rfl: 0 No current facility-administered medications for this visit. 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 Social History Main Topics Smoking status: Never Smoker Smokeless tobacco: Never Used Alcohol use: No Drug use: No Sexual activity: Yes Partners with: Male control/protection: Tubal Ligation Comment: Postmenopausal FAMILY HISTORY: FAMILY HISTORY Problem Relation Age of Onset - Hypertension Mother - Osteoporosis Mother - other (Dementia) Mother - other (lung cancer) Father smoker REVIEW OF SYMPTOMS: The review of systems data was entered by the nurse and reviewed by me Nursing Notes: Demetrius Greenwood LPN 08/06/2018 1:40 PM Signed REVIEW OF SYSTEMS: General: The patient denies fatigue, denies weight loss, denies weight gain, denies feeling hot, and denies feelings of cold. Eyes: The patient denies glaucoma, denies eye injury/surgery, does not wear glasses or contacts. Ear/Nose/Throat: The patient denies allergies, NOTES hayfever, denies ear infections, and denies bloody noses. Cardiovascular: The patient denies chest pain, denies heart disease, denies high blood pressure,denies cardiac stent, denies prior heart attack, denies irregular heart beat, denies high cholesterol, denies poor circulation, denies heart failure, other cardiac issues, denies claudication, denies cold feet, denies peripheral arterial stent. Respiratory: The patient denies tuberculosis, denies pneumonia, denies frequent cough, denies pulmonary embolism, denies shortness of breath, and denies coughing up blood. Gastrointestinal: The patient denies difficulty swallowing, denies acid reflux, denies ulcers, denies vomiting, denies jaundice/hepatitis, denies gallbladder problems, denies black or tarry stools, denies hemorrhoids, denies bleeding from rectum, denies diverticulitis, denies constipation, denies diarrhea, NOTES loss of stool control, and denies hernias. Kidney/Bladder: The patient denies kidney stones, denies urine infections, and denies bloody urine. Skin: The patient denies a history of skin cancer, denies bleeding/changing moles, and denies a history of skin rash. Neurologic: The patient denies a history of epilepsy/convulsions, denies headaches, denies head/spinal injuries, and denies stroke/TIA. Psychiatric: The patient denies psychiatric medications, denies depression, and denies voices, denies substance abuse. Endocrine: The patient denies thyroid disorders, denies diabetes, and denies hormonal problems. Hematologic: The patient denies a history of bruising, denies bleeding, and denies anemia, denies blood clots. Infections: The patient denies a history of measles and mumps, denies rheumatic fever, and denies sexually transmitted diseases. Musculoskeletal: The patient denies back pain/injury, denies back problems, denies sciatica, denies knee/foot trouble, denies arthritis, or denies gout. PHYSICAL EXAMINATION: General: The patient is 78 year old female, well nourished, well hydrated in no acute distress. The patient is oriented to time, place, and person. VITALS: BP 138/62 Pulse 88 There is no height or weight on file to calculate BMI. HEENT: Normal cephalic, ataumatic, pupils are equally round, sclera are anicteric, mucous membranes are moist, oropharynx is clear. Neck has no masses, asymmetry or lymphadenopathy. Thyroid is unremarkable. Respiratory: Clear to auscultation and percussion. Normal respiratory excursion and pattern. Cardiac: Examination is regular rate and rhythm. Abdominal exam: Soft, nontender, with no palpable masses. No hepatosplenomegaly. No palpable hernias. Rectal exam: exam deferred Extremities: no clubbing, cyanosis or edema. No adenopathy. LABORATORY VALUES: As Noted RADIOLOGIC STUDIES: As Noted Assessment IMPRESSION: Recurring diverticulitis, unable to complete colonoscopy and barium enema suspicious for stenosis versus malignancy? PLAN: We extensively discussed the diagnosis and discussed the options. The patient has elected to undergo colon resection we are unable to prove that the abnormality is nonsignificant and nonmalignant. We'll plan for bowel prep Sunday night with colonoscopy Sunday. The patient understands we will try more aggressively to get past the area of tortuosity to the area of concern on barium enema and this increases the risk of injury to the colon and perforation requiring emergent surgery that day. We discussed the risks and benefits of the planned endoscopy. I have informed the patient that complications can occur including failure to complete the endoscopy and perforation. The patient had the opportunity to ask questions concerning the planned endoscopy. My staff has also explained the procedure to the patient in understandable terms and has given the patient printed material concerning the procedure. The patient freely consents to surgery. If I am unable to get beyond that area or if the area does appear chronically narrowed and/or suspicious for malignancy, then I plan to perform a Laparoscopic Low Anterior Resection - 13650-317. The planned surgical procedure was discussed extensively with the patient. The risks, benefits, anticipated outcomes and possible complications and alternatives were discussed. My staff has also explained the procedure in understandable terms and the patient was given the option to take printed material concerning the planned procedure. The patient had the opportunity to ask questions concerning the planned procedure. The patient freely consents to the planned procedure. I will plan for outpatient antibiotic preparation including Neomycin and Flagyl 1gm each at 6,8, and 10pm the night before surgery. Anticipated Surgical Procedure/ CPT Code: Laparoscopic Low Anterior Resection - 46791-154 Anticipated Anesthetic: General Patient weight: Blood pressure 138/62, pulse 88. BMI: There is no height or weight on file to calculate BMI. 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 Miguel Dominguez MD indicating the above finding for this patient. Return to Clinic: The patient is instructed to follow-up with me 1 week post operatively. Neo Malik MD CNOV Observed: 08/06/2018 Status: COMPLETED Source: [place] 1:20 PM [facility] REPOSITORY Office Visit (GENSWS) SHADIA TURNER ([id number]) 1940 F Date Time Provider Department 08/06/18 1:20 PM MEGAN, NEO T GENSWS During your visit today, we recorded the following information about you: Pulse Blood pressure 88/minute 138/62 Demetrius Greenwood SALLY 08/06/2018 1:40 PM Signed REVIEW OF SYSTEMS: General: The patient denies fatigue, denies weight loss, denies weight gain, denies feeling hot, and denies feelings of cold. Eyes: The patient denies glaucoma, denies eye injury/surgery, does not wear glasses or contacts. Ear/Nose/Throat: The patient denies allergies, NOTES hayfever, denies ear infections, and denies bloody noses. Cardiovascular: The patient denies chest pain, denies heart disease, denies high blood pressure,denies cardiac stent, denies prior heart attack, denies irregular heart beat, denies high cholesterol, denies poor circulation, denies heart failure, other cardiac issues, denies claudication, denies cold feet, denies peripheral arterial stent. Respiratory: The patient denies tuberculosis, denies pneumonia, denies frequent cough, denies pulmonary embolism, denies shortness of breath, and denies coughing up blood. Gastrointestinal: The patient denies difficulty swallowing, denies acid reflux, denies ulcers, denies vomiting, denies jaundice/hepatitis, denies gallbladder problems, denies black or tarry stools, denies hemorrhoids, denies bleeding from rectum, denies diverticulitis, denies constipation, denies diarrhea, NOTES loss of stool control, and denies hernias. Kidney/Bladder: The patient denies kidney stones, denies urine infections, and denies bloody urine. Skin: The patient denies a history of skin cancer, denies bleeding/changing moles, and denies a history of skin rash. Neurologic: The patient denies a history of epilepsy/convulsions, denies headaches, denies head/spinal injuries, and denies stroke/TIA. Psychiatric: The patient denies psychiatric medications, denies depression, and denies voices, denies substance abuse. Endocrine: The patient denies thyroid disorders, denies diabetes, and denies hormonal problems. Hematologic: The patient denies a history of bruising, denies bleeding, and denies anemia, denies blood clots. Infections: The patient denies a history of measles and mumps, denies rheumatic fever, and denies sexually transmitted diseases. Musculoskeletal: The patient denies back pain/injury, denies back problems, denies sciatica, denies knee/foot trouble, denies arthritis, or denies gout. Neo Malik MD 08/06/2018 2:31 PM Signed The following instructions are important for you related to your office visit today with the [facility]. INSTRUCTIONS FOR YOUR SURGICAL PROCEDURE - COLON RESECTION We discussed the risks and benefits of your planned procedure. If you have any additional questions, please contact our office immediately. Preadmission testing is an important part of preparation for your procedure. All laboratory studies, x-rays, and additional testing must be available for the preadmission testing staff to help ready you for surgery. You should not take aspirin or other blood thinners for one week prior to surgery unless instructed differently. You were given handouts with instructions for your bowel preparation. It is important that should follow these instructions closely. If you do not feel you are becoming adequately clean after your bowel preparation, contact our office. Make sure to drink plenty of clear liquids with your bowel cleansing. This well help to better clean your colon and prevent dehydration. Do not eat or drink liquids after midnight. We will then do the colonoscopy. If we need to do the colon surgery - You will be given antibiotic tablets to further prepare your colon. Typically neomycin and flagyl - 1gram orally at: 4pm, 6pm and 10pm are given. The times may be different if surgery is not scheduled for the first case of the day. You should not have anything to eat or drink after midnight the night prior to your surgery. You should wear comfortable clothes for your procedure. Please understand that the operating room schedule is an estimated time for your surgical procedure. Your procedure may be somewhat earlier or somewhat later than the estimated time. You will typically be kept NPO in the hospital until you have return of bowel activity. Once you have return of bowel activity, you will be started on clear liquids and typically will go home the following day. You'll be discharged home with postoperative instructions and typically pain medications. Please be aware that many pain medications may cause nausea. You should typically eat light foods as you take your pain medications. Your dressing will usually be able to be removed two to three days following surgery. You may typically shower three days after surgery. If you have Steri-Strips on your incision (little white tapes) you should leave these in place until they fall off. You will typically have a followup office visit 1 to 2 weeks after surgery. Again, if you have any difficulties or concerns, contact our office immediately. If you note any additional difficulties, questions, or concerns, you should contact our office immediately @ [phone] and ask to be transferred to the General Surgery department. Neo Malik MD 08/07/2018 10:24 AM Signed HISTORY AND PHYSICAL - COLON RESECTION FOR RECURRENT DIVERTICULITIS Shadia Turner 1940 August 07, 2018 REFERRING PHYSICIAN: Miguel Dominguez MD CHIEF COMPLAINT: LLQ pain HPI: The patient is a 78 year old female with a complaint of recurrent LLQ pain. Shadia is a patient I am following for diverticulitis. The patient is a 78 year old female referred for diverticulitis and questionable pneumaturia. Shadia notes a 6-month history of abdominal complaints. She notes a pressure sensation and discomfort in her left lower abdomen intermittently, does not radiate, varies in intensity-states currently 2/10. Notes pressure with having a bowel movement and feels that she passes air when she urinates. Notes recently when wiping after urination she sees stool on the paper. Denies frequent UTIs. She does note a recent history of low-grade fever-100.5. Was evaluated by her PCP who ordered UA and bloodwork as well as CT scan. [facility], positive for occult blood as well as mixed gram positive organisms. CBC was within normal limits. Shadia has undergone prior endoscopy, thinks this was in 2007, by Dr. Lee. She denies a history of polyps. Denies family history of colon cancer. Patient states that in the past she had episodes suspected to be diverticulitis not formally diagnosed. 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 We obtained a CT scan of the abdomen and pelvis. This demonstated mild diverticulitis in the descending colon/proximal sigmoid. There was no colon approximate to the bladder, no bladder thickening and no air in the bladder I performed lower endoscopy on July 09, 2018. The patient was found to have significant tortuosity and diverticulosis which may be concerned for blindly try and advance the scope through the segment through the risk of injury. Endoscopy was aborted. Endoscopically there were no visualized area suspicious for malignancy. A follow-up barium enema was obtained. This demonstrated diverticulosis in the left hemicolon. There was also noted to be a focal area of narrowing with overhanging edges in the midportion of the sigmoid colon. It was listed as a neoplastic process should be ruled out and that there was no evidence obstruction. Reviewing the barium enema in concert with the CT scan I do see what Dr. Haywood is noting. I agree this is most likely a diverticular narrowing segment but also agree that I cannot rule out a malignancy in this area. She returns now with plans to repeat a colonoscopy and if I am unable to get past the area of concern and prove this is nonsignificant then would plan for laparoscopic sigmoid resection the following day The patient is being seen by me today at the request of Dr. Miguel Dominguez MD for my opinion and advice regarding recurring diverticulitis and now left lower quadrant pain/questionable stricture. PAST MEDICAL HISTORY Diagnosis Date - Asthma as a child - Osteoporosis - Snoring PAST SURGICAL HISTORY Procedure Laterality Date - APPENDECTOMY - COLONOSCOP W/ OR W/O [facility] SPEC Colonoscopy - COLONOSCOP W/ OR W/O [facility]SH SPEC 07/09/2018 Colonoscopy - LAP, SURG ENTEROLYSIS 02/22/[address] Wharton - LIGATE FALLOPIAN TUBE - PAST SURGICAL HISTORY OF 10/2006 right foot surgery - PAST SURGICAL HISTORY OF 06/11 left foot surgery Current Outpatient Prescriptions: gabapentin (NEURONTIN) 100 mg capsule TAKE 1 CAPSULE BY MOUTH THREE TIMES DAILY WITH A MEAL...AND 3 CAPSULES AT BEDTIME Disp: Rfl: 0 magnesium oxide 200 mg magnesium tab Take by mouth. Disp: Rfl: aspirin, enteric coated (ASPIRIN, ENTERIC COATED) 81 mg EC tablet Take 81 mg by mouth once daily. Disp: Rfl: ERGOCALCIFEROL, VITAMIN D2, (VITAMIN D ORAL) Take by mouth. Disp: Rfl: CALCIUM 500 MG TAB Take one(1) tablet twice daily. w/ vit D Disp: Rfl: 0 MULTIVITAMIN TAB Take one(1) tablet daily. Disp: Rfl: 0 neomycin 500 mg tablet Take 2 tablets by mouth four times daily. 2 TABLETS AT 6, 8 ,AND 10 PM Disp: 6 tablet Rfl: 0 metroNIDAZOLE (FLAGYL) 500 mg tablet Take 1 tablet by mouth three times daily. 2 TABLETS AT 6, 8, AND 10 PM Disp: 6 tablet Rfl: 0 No current facility-administered medications for this visit. 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 Social History Main Topics Smoking status: Never Smoker Smokeless tobacco: Never Used Alcohol use: No Drug use: No Sexual activity: Yes Partners with: Male control/protection: Tubal Ligation Comment: Postmenopausal FAMILY HISTORY: FAMILY HISTORY Problem Relation Age of Onset - Hypertension Mother - Osteoporosis Mother - other (Dementia) Mother - other (lung cancer) Father smoker REVIEW OF SYMPTOMS: The review of systems data was entered by the nurse and reviewed by me Nursing Notes: Demetrius Greenwood LPN 08/06/2018 1:40 PM Signed REVIEW OF SYSTEMS: General: The patient denies fatigue, denies weight loss, denies weight gain, denies feeling hot, and denies feelings of cold. Eyes: The patient denies glaucoma, denies eye injury/surgery, does not wear glasses or contacts. Ear/Nose/Throat: The patient denies allergies, NOTES hayfever, denies ear infections, and denies bloody noses. Cardiovascular: The patient denies chest pain, denies heart disease, denies high blood pressure,denies cardiac stent, denies prior heart attack, denies irregular heart beat, denies high cholesterol, denies poor circulation, denies heart failure, other cardiac issues, denies claudication, denies cold feet, denies peripheral arterial stent. Respiratory: The patient denies tuberculosis, denies pneumonia, denies frequent cough, denies pulmonary embolism, denies shortness of breath, and denies coughing up blood. Gastrointestinal: The patient denies difficulty swallowing, denies acid reflux, denies ulcers, denies vomiting, denies jaundice/hepatitis, denies gallbladder problems, denies black or tarry stools, denies hemorrhoids, denies bleeding from rectum, denies diverticulitis, denies constipation, denies diarrhea, NOTES loss of stool control, and denies hernias. Kidney/Bladder: The patient denies kidney stones, denies urine infections, and denies bloody urine. Skin: The patient denies a history of skin cancer, denies bleeding/changing moles, and denies a history of skin rash. Neurologic: The patient denies a history of epilepsy/convulsions, denies headaches, denies head/spinal injuries, and denies stroke/TIA. Psychiatric: The patient denies psychiatric medications, denies depression, and denies voices, denies substance abuse. Endocrine: The patient denies thyroid disorders, denies diabetes, and denies hormonal problems. Hematologic: The patient denies a history of bruising, denies bleeding, and denies anemia, denies blood clots. Infections: The patient denies a history of measles and mumps, denies rheumatic fever, and denies sexually transmitted diseases. Musculoskeletal: The patient denies back pain/injury, denies back problems, denies sciatica, denies knee/foot trouble, denies arthritis, or denies gout. PHYSICAL EXAMINATION: General: The patient is 78 year old female, well nourished, well hydrated in no acute distress. The patient is oriented to time, place, and person. VITALS: BP 138/62 Pulse 88 There is no height or weight on file to calculate BMI. HEENT: Normal cephalic, ataumatic, pupils are equally round, sclera are anicteric, mucous membranes are moist, oropharynx is clear. Neck has no masses, asymmetry or lymphadenopathy. Thyroid is unremarkable. Respiratory: Clear to auscultation and percussion. Normal respiratory excursion and pattern. Cardiac: Examination is regular rate and rhythm. Abdominal exam: Soft, nontender, with no palpable masses. No hepatosplenomegaly. No palpable hernias. Rectal exam: exam deferred Extremities: no clubbing, cyanosis or edema. No adenopathy. LABORATORY VALUES: As Noted RADIOLOGIC STUDIES: As Noted Assessment IMPRESSION: Recurring diverticulitis, unable to complete colonoscopy and barium enema suspicious for stenosis versus malignancy? PLAN: We extensively discussed the diagnosis and discussed the options. The patient has elected to undergo colon resection we are unable to prove that the abnormality is nonsignificant and nonmalignant. We'll plan for bowel prep Sunday with colonoscopy Sunday. The patient understands we will try more aggressively to get past the area of tortuosity to the area of concern on barium enema and this increases the risk of injury to the colon and perforation requiring emergent surgery that day. We discussed the risks and benefits of the planned endoscopy. I have informed the patient that complications can occur including failure to complete the endoscopy and perforation. The patient had the opportunity to ask questions concerning the planned endoscopy. My staff has also explained the procedure to the patient in understandable terms and has given the patient printed material concerning the procedure. The patient freely consents to surgery. If I am unable to get beyond that area or if the area does appear chronically narrowed and/or suspicious for malignancy, then I plan to perform a Laparoscopic Low Anterior Resection - 29638-222. The planned surgical procedure was discussed extensively with the patient. The risks, benefits, anticipated outcomes and possible complications and alternatives were discussed. My staff has also explained the procedure in understandable terms and the patient was given the option to take printed material concerning the planned procedure. The patient had the opportunity to ask questions concerning the planned procedure. The patient freely consents to the planned procedure. I will plan for outpatient antibiotic preparation including Neomycin and Flagyl 1gm each at 6,8, and 10pm the night before surgery. Anticipated Surgical Procedure/ CPT Code: Laparoscopic Low Anterior Resection - 19774-189 Anticipated Anesthetic: General Patient weight: Blood pressure 138/62, pulse 88. BMI: There is no height or weight on file to calculate BMI. 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 Miguel Dominguez MD indicating the above finding for this patient. Return to Clinic: The patient is instructed to follow-up with me 1 week post operatively. Neo Malik MD Referring Provider: MIGUEL DOMINGUEZ [[id number]] Allergies As of Date: 08/06/2018 Noted Allergy Reaction AUGMENTIN (AMOXICILLIN-POT CLAVUL*05/08/2018 8 - GI Upset Comments: Unable to tolerate due to GI side effects LATEX 05/26/2009 2 - Rash Date Reviewed: 08/06/2018 Reviewed by: Demetrius Greenwood LPN - Fully Assessed Reason for Visit: Established Patient [175] Cmt: f/u colonoscopy /BE Primary Visit Diagnosis:Adenomatous polyp of colon, unspecified part of colon [D12.6] Order(s):neomycin 500 mg tabletTake 2 tablets by mouth four times daily. 2 TABLETS AT 6, 8 ,AND 10 PMDisp: 6 tabletRfl: 0 metroNIDAZOLE (FLAGYL) 500 mg tabletTake 1 tablet by mouth three times daily. 2 TABLETS AT 6, 8, AND 10 PMDisp: 6 tabletRfl: 0 [] peg 3350-Electrolytes (GOLYTELY) 236-22.74-6.74 -5.86 gram suspensionTake 4,000 mL by mouth one time only for 1 dose.Disp: 1 BottleRfl: 0 Prescriptions as of 08/06/2018 Sig: GABAPENTIN 100 MG CAPSULE TAKE 1 CAPSULE BY MOUTH THREE* MAGNESIUM 200 MG ( MAGNESIU* Take by mouth. ASPIRIN 81 MG TABLET,DELAYED * Take 81 mg by mouth once willy* VITAMIN D2 ORAL Take by mouth. * CALCIUM 500 MG TABLET Take one(1) tablet twice willy* * MULTIVITAMIN TABLET Take one(1) tablet daily. NEOMYCIN 500 MG TABLET Take 2 tablets by mouth four * METRONIDAZOLE 500 MG TABLET Take 1 tablet by mouth three * PEG 3350-ELECTROLYTES 236 GRA* Take 4,000 mL by mouth one ti* Problem List As Of Date 08/06/2018 Noted Resolved Osteopenia [M85.80] INVALID FOR* Abdominal adhesions [K66.0] INVALID FOR* Other instructions from your clinician: The following instructions are important for you related to your office visit today with the [facility]. INSTRUCTIONS FOR YOUR SURGICAL PROCEDURE - COLON RESECTION We discussed the risks and benefits of your planned procedure. If you have any additional questions, please contact our office immediately. Preadmission testing is an important part of preparation for your procedure. All laboratory studies, x-rays, and additional testing must be available for the preadmission testing staff to help ready you for surgery. You should not take aspirin or other blood thinners for one week prior to surgery unless instructed differently. You were given handouts with instructions for your bowel preparation. It is important that should follow these instructions closely. If you do not feel you are becoming adequately clean after your bowel preparation, contact our office. Make sure to drink plenty of clear liquids with your bowel cleansing. This well help to better clean your colon and prevent dehydration. Do not eat or drink liquids after midnight. We will then do the colonoscopy. If we need to do the colon surgery - You will be given antibiotic tablets to further prepare your colon. Typically neomycin and flagyl - 1gram orally at: 4pm, 6pm and 10pm are given. The times may be different if surgery is not scheduled for the first case of the day. You should not have anything to eat or drink after midnight the night prior to your surgery. You should wear comfortable clothes for your procedure. Please understand that the operating room schedule is an estimated time for your surgical procedure. Your procedure may be somewhat earlier or somewhat later than the estimated time. You will typically be kept NPO in the hospital until you have return of bowel activity. Once you have return of bowel activity, you will be started on clear liquids and typically will go home the following day. You'll be discharged home with postoperative instructions and typically pain medications. Please be aware that many pain medications may cause nausea. You should typically eat light foods as you take your pain medications. Your dressing will usually be able to be removed two to three days following surgery. You may typically shower three days after surgery. If you have Steri-Strips on your incision (little white tapes) you should leave these in place until they fall off. You will typically have a followup office visit 1 to 2 weeks after surgery. Again, if you have any difficulties or concerns, contact our office immediately. If you note any additional difficulties, questions, or concerns, you should contact our office immediately @ [phone] and ask to be transferred to the General Surgery department. Visit Notes: >> Demetrius Urias Aug 06, 2018 1:40 PM Status: Signed REVIEW OF SYSTEMS: General: The patient denies fatigue, denies weight loss, denies weight gain, denies feeling hot, and denies feelings of cold. Eyes: The patient denies glaucoma, denies eye injury/surgery, does not wear glasses or contacts. Ear/Nose/Throat: The patient denies allergies, NOTES hayfever, denies ear infections, and denies bloody noses. Cardiovascular: The patient denies chest pain, denies heart disease, denies high blood pressure,denies cardiac stent, denies prior heart attack, denies irregular heart beat, denies high cholesterol, denies poor circulation, denies heart failure, other cardiac issues, denies claudication, denies cold feet, denies peripheral arterial stent. Respiratory: The patient denies tuberculosis, denies pneumonia, denies frequent cough, denies pulmonary embolism, denies shortness of breath, and denies coughing up blood. Gastrointestinal: The patient denies difficulty swallowing, denies acid reflux, denies ulcers, denies vomiting, denies jaundice/hepatitis, denies gallbladder problems, denies black or tarry stools, denies hemorrhoids, denies bleeding from rectum, denies diverticulitis, denies constipation, denies diarrhea, NOTES loss of stool control, and denies hernias. Kidney/Bladder: The patient denies kidney stones, denies urine infections, and denies bloody urine. Skin: The patient denies a history of skin cancer, denies bleeding/changing moles, and denies a history of skin rash. Neurologic: The patient denies a history of epilepsy/convulsions, denies headaches, denies head/spinal injuries, and denies stroke/TIA. Psychiatric: The patient denies psychiatric medications, denies depression, and denies voices, denies substance abuse. Endocrine: The patient denies thyroid disorders, denies diabetes, and denies hormonal problems. Hematologic: The patient denies a history of bruising, denies bleeding, and denies anemia, denies blood clots. Infections: The patient denies a history of measles and mumps, denies rheumatic fever, and denies sexually transmitted diseases. Musculoskeletal: The patient denies back pain/injury, denies back problems, denies sciatica, denies knee/foot trouble, denies arthritis, or denies gout. Prescriptions ordered this encounter Disp Refills Start End NEOMYCIN 500 MG TABLET 6 ta* 0 08/06/2018 Route: ORAL Sig: Take 2 tablets by mouth four times daily. 2 TABLETS AT 6, 8 ,AND 10 PM METRONIDAZOLE 500 MG TABLET 6 ta* 0 08/06/2018 Route: ORAL Sig: Take 1 tablet by mouth three times daily. 2 TABLETS AT 6, 8, AND 10 PM PEG 3350-ELECTROLYTES 236 GRAM-22.74* 1 Federico* 0 08/06/2018 08/06/2018 Route: ORAL Sig: Take 4,000 mL by mouth one time only for 1 dose. Letter Text Letter Text NURSE'S SIGNATURE DOCTOR'S SIGNATURE TIME TIME DATE August 07, 2018 [facility] DATE August 07, 2018 Orders verified by readback: PRE-ADMISSION TESTING PHYSICIAN'S ORDER SHEET PREOPERATIVE ORDERS: X ANTIBIOTIC: _Levaquin 500mg IVPB monotype keyboard operator to OR__ aware of penicillin allergy ok to administer X SCD'S __ PREP LOCATION: ___abdomen, mod lithotomy_ __ PAINT WITH BETADINE/CHLORAHEXIDINE PREP PRE-ADMISSION TESTING PHYSICIAN'S ORDER SHEET [id number] REV 3. ANESTHESIA: __ Surgeon has notified anesthesia. Date/Time Doctor OR __ Anesthesia not yet notified of consult by surgeon. Check area of concern. System of concern: __Cardiac __Pulmonary __Neuro __ Airway __Allergies __Other __ Anesthesia to see patient at PAT appointment. (PAT appt must be between 1-3 pm) LAB ORDERS: X Labs done at [facility] (Copies enclosed for [facility]) __ Duplicate order __ No Labs ordered ___ CBC ___ CBC/Diff ___ Basic Metabolic Profile (BUN, Lytes, Glu, Cre, Calcium) __ Glucose __ Creatinine __ BUN __ Lytes __ Protime- Dx code: __ PTT - Dx code: __ Urinalysis __ Urinalysis (complete) __ Liver Profile __ Lipid Profile __ Alk Phosphatase __ Bilirubin __ Amylase/Lipase __ Magnesium __ Phosphorous __ PSA - Dx code: __ CEA - Dx code: __ Urine __ Serum (Age 11-52 years old unless sterilization or pt refuses) X Screen for MRSA (PCR) if guidelines met Other: BLOOD BANK: __ Type AND Screen __ Type AND Cross (RC) units __ Autologous units __ Fresh Frozen Plasma units __ Platelets units ANCILLARY DEPTS: __EKG-MD to read: __PA/Lat CXR Reason for exam: __ Incentive Spirometer __ 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 Augmentin [Amoxicillin-Pot Clavulanate]; Latex Patient's Name: Facundo Turner Patient's Birthdate: 1940 Diagnosis: (D12.6) Adenomatous polyp of colon, unspecified part of colon (primary encounter diagnosis) [facility] Surgery / Procedure: Laparoscopic Low Anterior Resection - 97531-575 Surgeon / Physician: Neo Malik MD My doctor and I talked about the recommended surgery/procedure, the reasons it is being recommended, and what it generally is expected to do. We talked about major risks or complications that could occur. We talked about options other than the recommended surgery/procedure (including no treatment) and the benefits and risks of each option. I received and understand information describing the surgery or procedure, its potential risks and complications. I know surgery/medicine is not an exact science. No doctor, nurse or anyone from [facility] promised or guaranteed the success or clinical outcome of the surgery/procedure, or that a risk or complication could not occur. I know every surgery/procedure has risks, including the risk of anesthesia, the risk of unplanned injury, the risk of infection and the risk of failure. I know that not every possible risk could be covered in the written materials or in talking with the doctor. Before signing this Consent, I had an opportunity to discuss the recommended surgery/procedure, other options, and risks. I am satisfied with the answers to all of my questions. I understand about risks and knowingly accept them. If you are (or believe you may be ), tell your doctor or nurse before you sign this Consent. Your doctor will discuss with you if there are potential risks to your unborn child. Your consent will be for yourself and for the unborn child. It is the Hospital's policy to require that a responsible adult drive you directly home when you leave the Hospital. By signing, you accept and agree with this policy. By signing, I voluntarily and knowingly give my informed consent: O To have the doctor perform the recommended surgery/procedure. O To have such anesthetics (including moderate sedation) that are necessary and advisable. O To have the doctor perform additional, medically necessary surgery/procedures to treat any unforeseen or newly-discovered condition that occurs during surgery/the procedure, which needs prompt attention. O To examine, record and dispose of any tissue or body parts that are removed. O To allow photographs that will be used strictly for documenting my medical condition and treatment, which will be made a part of my confidential medical record. Check, if applicable: - To give me blood or blood products during surgery/procedure and during my hospital stay, as medically necessary. The risks, benefits, and alternatives to transfusions have been discussed with me and all my questions have been answered. - To not give me blood or blood products. I fully understand that this may adversely affect my medical management and may result in my . Alternatives to blood/blood products have been discussed with me. I read this Form, or had it read to me. I understand what it says. Patient or Responsible Person Relationship to Patient Witness to Signature Only Reason Patient Does Not Sign -- Date and Time signed Physician's signature [id number] Rev 03/09 Informed Consent Page 1 of 2 [facility] Informed Consent Surgery / Procedure: Laparoscopic Low Anterior Resection - [id number] Surgeon / Physician: Neo Malik MD My doctor and I talked about the recommended surgery / procedure, the reasons it is being recommended, and what it generally is expected to do. We talked about major risks or complications that could occur. We talked about options other than the recommended surgery / procedure (including no treatment) and the benefits and risks of each option. I received and understand information describing the surgery or procedure, its potential risks, and complications. I know surgery / medicine is not an exact science. No doctor, nurse or anyone from [facility] promised or guaranteed the success or clinical outcome of the surgery / procedure, or that a risk or complication could not occur. I know every surgery / procedure has risks, including the risk of anesthesia, the risk of unplanned injury, the risk of infection and the risk of failure. I know that not every possible risk could be covered in the written materials or in talking with the doctor. Before signing this Consent, I had an opportunity to discuss the recommended surgery / procedure, other options, risks, and what may occur if I choose not to have the surgery / procedure. I am satisfied with the answers to all of my questions. I understand about risks and knowingly accept them. If you are (or believe you may be ), tell your doctor or nurse before you sign this Consent. Your doctor will discuss with you if there are potential risks to your unborn child. Your consent will be for yourself and for the unborn child. It is the Hospital?s policy to require that a responsible adult drive you directly home when you leave the Hospital. By signing, you accept and agree with this policy. By signing, I voluntarily and knowingly give my informed consent: To have the doctor perform the recommended surgery / procedure To have such anesthetics (including moderate / deep sedation) that are necessary and advisable. To have the doctor perform additional, medically necessary surgery / procedures to treat any unforeseen or newly-discovered condition that occurs during surgery / the procedure, which needs prompt attention. To examine, record and dispose of any tissue or body parts that are removed. To allow photographs that will be used strictly for documenting my medical condition and treatment, which will be made a part of my confidential medical record. To allow [facility] employees, such as an Registered Nurse Instrument Technician Helper (LICENSE INSPECTOR) to assist with my surgery To allow Healthcare Industry Representatives to be present during my surgery or procedure To allow students to participate in the care, under appropriate situations. Page 1 of 2 [facility] Informed Consent Check One: To give me blood or blood products during surgery / procedure and during my hospital stay, as medically necessary. The risks, benefits, and alternatives to transfusions have been discussed with me and all my questions have been answered. To not give me blood or blood products. I fully understand that this may adversely affect my medical management and may result in my . Alternatives to blood / blood products have been discussed with me. I read this Form, or had it read to me. I understand what it says. Patient Signature Relationship to Patient Date AND Time Signed Reason Patient Does Not Sign Witness to Signature Only Date and Time Signed I certify that I have explained the nature, purpose, anticipated risks and benefits, complications, and alternatives to the proposed procedure to the patient. I have answered all questions fully and I believe the patient fully understands what I have explained. Physician?s Signature Date and Time [place] [facility] of General Surgery [address] [place], [place] [address] Miguel Dominguez MD ([facility]) [address] [place] [address] 08/07/2018 Dear Miguel Dominguez MD : Thank you for allowing me to evaluate your patient, Shadia Turner. I saw Shadia on 08/06/2018. I am planning to perform a asdasd. Enclosed is a copy of my office dictation for Shadia which includes my evaluation and recommendations. Again, thank you for the referral of Shadia Turner. If I can be of any assistance to you in the future, please don't hesitate to call. Sincerely yours, Neo Malik MD, FACS HISTORY AND PHYSICAL - COLON RESECTION FOR RECURRENT DIVERTICULITIS Shadia Turner 1940 August 07, 2018 REFERRING PHYSICIAN: Miguel Dominguez MD CHIEF COMPLAINT: LLQ pain HPI: The patient is a 78 year old female with a complaint of recurrent LLQ pain. Shadia is a patient I am following for diverticulitis. The patient is a 78 year old female referred for diverticulitis and questionable pneumaturia. Shadia notes a 6-month history of abdominal complaints. She notes a pressure sensation and discomfort in her left lower abdomen intermittently, does not radiate, varies in intensity-states currently 2/10. Notes pressure with having a bowel movement and feels that she passes air when she urinates. Notes recently when wiping after urination she sees stool on the paper. Denies frequent UTIs. She does note a recent history of low-grade fever-100.5. Was evaluated by her PCP who ordered UA and bloodwork as well as CT scan. Urine results reviewed in [facility], positive for occult blood as well as mixed gram positive organisms. CBC was within normal limits. Shadia has undergone prior endoscopy, thinks this was in 2007, by Dr. Lee. She denies a history of polyps. Denies family history of colon cancer. Patient states that in the past she had episodes suspected to be diverticulitis not formally diagnosed. 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 We obtained a CT scan of the abdomen and pelvis. This demonstated mild diverticulitis in the descending colon/proximal sigmoid. There was no colon approximate to the bladder, no bladder thickening and no air in the bladder I performed lower endoscopy on July 09, 2018. The patient was found to have significant tortuosity and diverticulosis which may be concerned for blindly try and advance the scope through the segment through the risk of injury. Endoscopy was aborted. Endoscopically there were no visualized area suspicious for malignancy. A follow-up barium enema was obtained. This demonstrated diverticulosis in the left hemicolon. There was also noted to be a focal area of narrowing with overhanging edges in the midportion of the sigmoid colon. It was listed as a neoplastic process should be ruled out and that there was no evidence obstruction. Reviewing the barium enema in concert with the CT scan I do see what Dr. Haywood is noting. I agree this is most likely a diverticular narrowing segment but also agree that I cannot rule out a malignancy in this area. She returns now with plans to repeat a colonoscopy and if I am unable to get past the area of concern and prove this is nonsignificant then would plan for laparoscopic sigmoid resection the following day The patient is being seen by me today at the request of Dr. Miguel Dominguez MD for my opinion and advice regarding recurring diverticulitis and now left lower quadrant pain/questionable stricture. PAST MEDICAL HISTORY Diagnosis Date - Asthma as a child - Osteoporosis - Snoring PAST SURGICAL HISTORY Procedure Laterality Date - APPENDECTOMY - COLONOSCOP W/ OR W/O [facility] SPEC Colonoscopy - COLONOSCOP W/ OR W/O [facility] SPEC 07/09/2018 Colonoscopy - LAP, SURG ENTEROLYSIS 02/22/[address] Wharton - LIGATE FALLOPIAN TUBE - PAST SURGICAL HISTORY OF 10/2006 right foot surgery - PAST SURGICAL HISTORY OF 06/11 left foot surgery Current Outpatient Prescriptions: gabapentin (NEURONTIN) 100 mg capsule TAKE 1 CAPSULE BY MOUTH THREE TIMES DAILY WITH A MEAL...AND 3 CAPSULES AT BEDTIME Disp: Rfl: 0 magnesium oxide 200 mg magnesium tab Take by mouth. Disp: Rfl: aspirin, enteric coated (ASPIRIN, ENTERIC COATED) 81 mg EC tablet Take 81 mg by mouth once daily. Disp: Rfl: ERGOCALCIFEROL, VITAMIN D2, (VITAMIN D ORAL) Take by mouth. Disp: Rfl: CALCIUM 500 MG TAB Take one(1) tablet twice daily. w/ vit D Disp: Rfl: 0 MULTIVITAMIN TAB Take one(1) tablet daily. Disp: Rfl: 0 neomycin 500 mg tablet Take 2 tablets by mouth four times daily. 2 TABLETS AT 6, 8 ,AND 10 PM Disp: 6 tablet Rfl: 0 metroNIDAZOLE (FLAGYL) 500 mg tablet Take 1 tablet by mouth three times daily. 2 TABLETS AT 6, 8, AND 10 PM Disp: 6 tablet Rfl: 0 No current facility-administered medications for this visit. 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 Social History Main Topics Smoking status: Never Smoker Smokeless tobacco: Never Used Alcohol use: No Drug use: No Sexual activity: Yes Partners with: Male control/protection: Tubal Ligation Comment: Postmenopausal FAMILY HISTORY: FAMILY HISTORY Problem Relation Age of Onset - Hypertension Mother - Osteoporosis Mother - other (Dementia) Mother - other (lung cancer) Father smoker REVIEW OF SYMPTOMS: The review of systems data was entered by the nurse and reviewed by wa Nursing Notes: Demetrius Greenwood LPN 08/06/2018 1:40 PM Signed REVIEW OF SYSTEMS: General: The patient denies fatigue, denies weight loss, denies weight gain, denies feeling hot, and denies feelings of cold. Eyes: The patient denies glaucoma, denies eye injury/surgery, does not wear glasses or contacts. Ear/Nose/Throat: The patient denies allergies, NOTES hayfever, denies ear infections, and denies bloody noses. Cardiovascular: The patient denies chest pain, denies heart disease, denies high blood pressure,denies cardiac stent, denies prior heart attack, denies irregular heart beat, denies high cholesterol, denies poor circulation, denies heart failure, other cardiac issues, denies claudication, denies cold feet, denies peripheral arterial stent. Respiratory: The patient denies tuberculosis, denies pneumonia, denies frequent cough, denies pulmonary embolism, denies shortness of breath, and denies coughing up blood. Gastrointestinal: The patient denies difficulty swallowing, denies acid reflux, denies ulcers, denies vomiting, denies jaundice/hepatitis, denies gallbladder problems, denies black or tarry stools, denies hemorrhoids, denies bleeding from rectum, denies diverticulitis, denies constipation, denies diarrhea, NOTES loss of stool control, and denies hernias. Kidney/Bladder: The patient denies kidney stones, denies urine infections, and denies bloody urine. Skin: The patient denies a history of skin cancer, denies bleeding/changing moles, and denies a history of skin rash. Neurologic: The patient denies a history of epilepsy/convulsions, denies headaches, denies head/spinal injuries, and denies stroke/TIA. Psychiatric: The patient denies psychiatric medications, denies depression, and denies voices, denies substance abuse. Endocrine: The patient denies thyroid disorders, denies diabetes, and denies hormonal problems. Hematologic: The patient denies a history of bruising, denies bleeding, and denies anemia, denies blood clots. Infections: The patient denies a history of measles and mumps, denies rheumatic fever, and denies sexually transmitted diseases. Musculoskeletal: The patient denies back pain/injury, denies back problems, denies sciatica, denies knee/foot trouble, denies arthritis, or denies gout. PHYSICAL EXAMINATION: General: The patient is 78 year old female, well nourished, well hydrated in no acute distress. The patient is oriented to time, place, and person. VITALS: BP 138/62 Pulse 88 There is no height or weight on file to calculate BMI. HEENT: Normal cephalic, ataumatic, pupils are equally round, sclera are anicteric, mucous membranes are moist, oropharynx is clear. Neck has no masses, asymmetry or lymphadenopathy. Thyroid is unremarkable. Respiratory: Clear to auscultation and percussion. Normal respiratory excursion and pattern. Cardiac: Examination is regular rate and rhythm. Abdominal exam: Soft, nontender, with no palpable masses. No hepatosplenomegaly. No palpable hernias. Rectal exam: exam deferred Extremities: no clubbing, cyanosis or edema. No adenopathy. LABORATORY VALUES: As Noted RADIOLOGIC STUDIES: As Noted Assessment IMPRESSION: Recurring diverticulitis, unable to complete colonoscopy and barium enema suspicious for stenosis versus malignancy? PLAN: We extensively discussed the diagnosis and discussed the options. The patient has elected to undergo colon resection we are unable to prove that the abnormality is nonsignificant and nonmalignant. We'll plan for bowel prep Sunday night with colonoscopy Sunday. The patient understands we will try more aggressively to get past the area of tortuosity to the area of concern on barium enema and this increases the risk of injury to the colon and perforation requiring emergent surgery that day. We discussed the risks and benefits of the planned endoscopy. I have informed the patient that complications can occur including failure to complete the endoscopy and perforation. The patient had the opportunity to ask questions concerning the planned endoscopy. My staff has also explained the procedure to the patient in understandable terms and has given the patient printed material concerning the procedure. The patient freely consents to surgery. If I am unable to get beyond that area or if the area does appear chronically narrowed and/or suspicious for malignancy, then I plan to perform a Laparoscopic Low Anterior Resection - 89200-808. The planned surgical procedure was discussed extensively with the patient. The risks, benefits, anticipated outcomes and possible complications and alternatives were discussed. My staff has also explained the procedure in understandable terms and the patient was given the option to take printed material concerning the planned procedure. The patient had the opportunity to ask questions concerning the planned procedure. The patient freely consents to the planned procedure. I will plan for outpatient antibiotic preparation including Neomycin and Flagyl 1gm each at 6,8, and 10pm the night before surgery. Anticipated Surgical Procedure/ CPT Code: Laparoscopic Low Anterior Resection - 72666-187 Anticipated Anesthetic: General Patient weight: Blood pressure 138/62, pulse 88. BMI: There is no height or weight on file to calculate BMI. 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 Miguel Dominguez MD indicating the above finding for this patient. Return to Clinic: The patient is instructed to follow-up with me 1 week post operatively. Neo Malik MD 08/07/2018 HISTORY AND PHYSICAL - COLON RESECTION FOR RECURRENT DIVERTICULITIS Shadia Turner 1940 August 07, 2018 REFERRING PHYSICIAN: Miguel Dominguez MD CHIEF COMPLAINT: LLQ pain HPI: The patient is a 78 year old female with a complaint of recurrent LLQ pain. Shadia is a patient I am following for diverticulitis. The patient is a 78 year old female referred for diverticulitis and questionable pneumaturia. Shadia notes a 6-month history of abdominal complaints. She notes a pressure sensation and discomfort in her left lower abdomen intermittently, does not radiate, varies in intensity-states currently 2/10. Notes pressure with having a bowel movement and feels that she passes air when she urinates. Notes recently when wiping after urination she sees stool on the paper. Denies frequent UTIs. She does note a recent history of low-grade fever-100.5. Was evaluated by her PCP who ordered UA and bloodwork as well as CT scan. [facility], positive for occult blood as well as mixed gram positive organisms. CBC was within normal limits. Shadia has undergone prior endoscopy, thinks this was in 2007, by Dr. Lee. She denies a history of polyps. Denies family history of colon cancer. Patient states that in the past she had episodes suspected to be diverticulitis not formally diagnosed. 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 We obtained a CT scan of the abdomen and pelvis. This demonstated mild diverticulitis in the descending colon/proximal sigmoid. There was no colon approximate to the bladder, no bladder thickening and no air in the bladder I performed lower endoscopy on July 09, 2018. The patient was found to have significant tortuosity and diverticulosis which may be concerned for blindly try and advance the scope through the segment through the risk of injury. Endoscopy was aborted. Endoscopically there were no visualized area suspicious for malignancy. A follow-up barium enema was obtained. This demonstrated diverticulosis in the left hemicolon. There was also noted to be a focal area of narrowing with overhanging edges in the midportion of the sigmoid colon. It was listed as a neoplastic process should be ruled out and that there was no evidence obstruction. Reviewing the barium enema in concert with the CT scan I do see what Dr. Haywood is noting. I agree this is most likely a diverticular narrowing segment but also agree that I cannot rule out a malignancy in this area. She returns now with plans to repeat a colonoscopy and if I am unable to get past the area of concern and prove this is nonsignificant then would plan for laparoscopic sigmoid resection the following day The patient is being seen by me today at the request of Dr. Miguel Dominguez MD for my opinion and advice regarding recurring diverticulitis and now left lower quadrant pain/questionable stricture. PAST MEDICAL HISTORY Diagnosis Date - Asthma as a child - Osteoporosis - Snoring PAST SURGICAL HISTORY Procedure Laterality Date - APPENDECTOMY - COLONOSCOP W/ OR W/O [facility] SPEC Colonoscopy - COLONOSCOP W/ OR W/O [facility] SPEC 07/09/2018 Colonoscopy - LAP, SURG ENTEROLYSIS 02/22/[address] Wharton - LIGATE FALLOPIAN TUBE - PAST SURGICAL HISTORY OF 10/2006 right foot surgery - PAST SURGICAL HISTORY OF 06/11 left foot surgery Current Outpatient Prescriptions: gabapentin (NEURONTIN) 100 mg capsule TAKE 1 CAPSULE BY MOUTH THREE TIMES DAILY WITH A MEAL...AND 3 CAPSULES AT BEDTIME Disp: Rfl: 0 magnesium oxide 200 mg magnesium tab Take by mouth. Disp: Rfl: aspirin, enteric coated (ASPIRIN, ENTERIC COATED) 81 mg EC tablet Take 81 mg by mouth once daily. Disp: Rfl: ERGOCALCIFEROL, VITAMIN D2, (VITAMIN D ORAL) Take by mouth. Disp: Rfl: CALCIUM 500 MG TAB Take one(1) tablet twice daily. w/ vit D Disp: Rfl: 0 MULTIVITAMIN TAB Take one(1) tablet daily. Disp: Rfl: 0 neomycin 500 mg tablet Take 2 tablets by mouth four times daily. 2 TABLETS AT 6, 8 ,AND 10 PM Disp: 6 tablet Rfl: 0 metroNIDAZOLE (FLAGYL) 500 mg tablet Take 1 tablet by mouth three times daily. 2 TABLETS AT 6, 8, AND 10 PM Disp: 6 tablet Rfl: 0 No current facility-administered medications for this visit. 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 Social History Main Topics Smoking status: Never Smoker Smokeless tobacco: Never Used Alcohol use: No Drug use: No Sexual activity: Yes Partners with: Male control/protection: Tubal Ligation Comment: Postmenopausal FAMILY HISTORY: FAMILY HISTORY Problem Relation Age of Onset - Hypertension Mother - Osteoporosis Mother - other (Dementia) Mother - other (lung cancer) Father smoker REVIEW OF SYMPTOMS: The review of systems data was entered by the nurse and reviewed by wa Nursing Notes: Demetrius Greenwood LPN 08/06/2018 1:40 PM Signed REVIEW OF SYSTEMS: General: The patient denies fatigue, denies weight loss, denies weight gain, denies feeling hot, and denies feelings of cold. Eyes: The patient denies glaucoma, denies eye injury/surgery, does not wear glasses or contacts. Ear/Nose/Throat: The patient denies allergies, NOTES hayfever, denies ear infections, and denies bloody noses. Cardiovascular: The patient denies chest pain, denies heart disease, denies high blood pressure,denies cardiac stent, denies prior heart attack, denies irregular heart beat, denies high cholesterol, denies poor circulation, denies heart failure, other cardiac issues, denies claudication, denies cold feet, denies peripheral arterial stent. Respiratory: The patient denies tuberculosis, denies pneumonia, denies frequent cough, denies pulmonary embolism, denies shortness of breath, and denies coughing up blood. Gastrointestinal: The patient denies difficulty swallowing, denies acid reflux, denies ulcers, denies vomiting, denies jaundice/hepatitis, denies gallbladder problems, denies black or tarry stools, denies hemorrhoids, denies bleeding from rectum, denies diverticulitis, denies constipation, denies diarrhea, NOTES loss of stool control, and denies hernias. Kidney/Bladder: The patient denies kidney stones, denies urine infections, and denies bloody urine. Skin: The patient denies a history of skin cancer, denies bleeding/changing moles, and denies a history of skin rash. Neurologic: The patient denies a history of epilepsy/convulsions, denies headaches, denies head/spinal injuries, and denies stroke/TIA. Psychiatric: The patient denies psychiatric medications, denies depression, and denies voices, denies substance abuse. Endocrine: The patient denies thyroid disorders, denies diabetes, and denies hormonal problems. Hematologic: The patient denies a history of bruising, denies bleeding, and denies anemia, denies blood clots. Infections: The patient denies a history of measles and mumps, denies rheumatic fever, and denies sexually transmitted diseases. Musculoskeletal: The patient denies back pain/injury, denies back problems, denies sciatica, denies knee/foot trouble, denies arthritis, or denies gout. PHYSICAL EXAMINATION: General: The patient is 78 year old female, well nourished, well hydrated in no acute distress. The patient is oriented to time, place, and person. VITALS: BP 138/62 Pulse 88 There is no height or weight on file to calculate BMI. HEENT: Normal cephalic, ataumatic, pupils are equally round, sclera are anicteric, mucous membranes are moist, oropharynx is clear. Neck has no masses, asymmetry or lymphadenopathy. Thyroid is unremarkable. Respiratory: Clear to auscultation and percussion. Normal respiratory excursion and pattern. Cardiac: Examination is regular rate and rhythm. Abdominal exam: Soft, nontender, with no palpable masses. No hepatosplenomegaly. No palpable hernias. Rectal exam: exam deferred Extremities: no clubbing, cyanosis or edema. No adenopathy. LABORATORY VALUES: As Noted RADIOLOGIC STUDIES: As Noted Assessment IMPRESSION: Recurring diverticulitis, unable to complete colonoscopy and barium enema suspicious for stenosis versus malignancy? PLAN: We extensively discussed the diagnosis and discussed the options. The patient has elected to undergo colon resection we are unable to prove that the abnormality is nonsignificant and nonmalignant. We'll plan for bowel prep Sunday with colonoscopy Sunday. The patient understands we will try more aggressively to get past the area of tortuosity to the area of concern on barium enema and this increases the risk of injury to the colon and perforation requiring emergent surgery that day. We discussed the risks and benefits of the planned endoscopy. I have informed the patient that complications can occur including failure to complete the endoscopy and perforation. The patient had the opportunity to ask questions concerning the planned endoscopy. My staff has also explained the procedure to the patient in understandable terms and has given the patient printed material concerning the procedure. The patient freely consents to surgery. If I am unable to get beyond that area or if the area does appear chronically narrowed and/or suspicious for malignancy, then I plan to perform a Laparoscopic Low Anterior Resection - [id number]. The planned surgical procedure was discussed extensively with the patient. The risks, benefits, anticipated outcomes and possible complications and alternatives were discussed. My staff has also explained the procedure in understandable terms and the patient was given the option to take printed material concerning the planned procedure. The patient had the opportunity to ask questions concerning the planned procedure. The patient freely consents to the planned procedure. I will plan for outpatient antibiotic preparation including Neomycin and Flagyl 1gm each at 6,8, and 10pm the night before surgery. Anticipated Surgical Procedure/ CPT Code: Laparoscopic Low Anterior Resection - 45615-066 Anticipated Anesthetic: General Patient weight: Blood pressure 138/62, pulse 88. BMI: There is no height or weight on file to calculate BMI. 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 Miguel Dominguez MD indicating the above finding for this patient. Return to Clinic: The patient is instructed to follow-up with me 1 week post operatively. Neo Malik MD I have reviewed the above history and physical exam. There have been no significant changes Neo Malik MD 08/07/2018 Encounter Status:Closed by NEO MALIK MD on 08/07/18 PROGRESS Observed: 07/19/2018 Status: COMPLETED Source: [place] 12:49 PM [facility] REPOSITORY [facility] ID: [id number] Author: Neo Malik Service: (none) Author Type: Physician Type: Progress Notes Filed: 07/19/2018 12:54 PM Note Text: FOLLOW UP VISIT - ENDOSCOPY NAME: Shadia [facility] NO.: [id number] DATE OF SERVICE: 07/16/2018 : 1940 REFERRING PHYSICIAN: Miguel Dominguez MD Shadia is a patient I am following for diverticulitis. The patient is a 77 year old female referred for diverticulitis and questionable pneumaturia. The patient is a 77 year old female referred for endoscopy. Shadia notes a 6-month history of abdominal complaints. She notes a pressure sensation and discomfort in her left lower abdomen intermittently, does not radiate, varies in intensity-states currently 2/10. Notes pressure with having a bowel movement and feels that she passes air when she urinates. Notes recently when wiping after urination she sees stool on the paper. Denies frequent UTIs. She does note a recent history of low-grade fever-100.5. Was evaluated by her PCP who ordered UA and bloodwork as well as CT scan. [facility], positive for occult blood as well as mixed gram positive organisms. CBC was within normal limits. Shadia has undergone prior endoscopy, thinks this was in 2007, by Dr. Lee. She denies a history of polyps. Denies family history of colon cancer. Patient states that in the past she had episodes suspected to be diverticulitis not formally diagnosed. 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 We obtained a CT scan of the abdomen and pelvis. This demonstated mild diverticulitis in the descending colon/proximal sigmoid. There was no colon approximate to the bladder, no bladder thickening and no air in the bladder I performed lower endoscopy on July 09, 2018. The patient was found to have significant tortuosity and diverticulosis which may be concerned for blindly try and advance the scope through the segment through the risk of injury. Endoscopy was aborted. Endoscopically there were no visualized area suspicious for malignancy. A follow-up barium enema was obtained. This demonstrated diverticulosis in the left hemicolon. There was also noted to be a focal area of narrowing with overhanging edges in the midportion of the sigmoid colon. It was listed as a neoplastic process should be ruled out and that there was no evidence obstruction. Reviewing the barium enema in concert with the CT scan I do see what Dr. Haywood is noting. I agree this is most likely a diverticular narrowing segment but also agree that I cannot rule out a malignancy in this area. The patient notes no complaints since the procedure. VITALS: There were no vitals taken for this visit. On examination, the abdomen is benign. 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 I discussed with the patient is actually imperative for me to truly visualize that area and if not then would recommend segmental resection either due to persistent stricture or risk of malignancy. Our plan is for her to return next month and perform endoscopy on Sunday and if I am unable to get around or can truly demonstrate that there is a malignancy or true stenosis then proceed with segmental resection the following day via laparoscopic low anterior resection. If I am all tumor get through the colon segment improve there is no malignancy there are no significant stenosis, then we would plan to cancel surgical resection. Diagnoses: (K57.92) Diverticulitis (primary encounter diagnosis) Return to Clinic: The patient is instructed to follow- up with me in 2 weeks to schedule procedures and verify preoperative prep plans. Neo Malik MD CNOV Observed: 07/16/2018 Status: COMPLETED Source: [place] 2:50 PM [facility] REPOSITORY Office Visit ([facility]) YUESHADIA BATISTA ([id number]) 1940 F Date Time Provider Department 07/16/18 2:50 PM NEO MALIK GENARNULFO During your visit today, we recorded the following information about you: Neo Malik MD 07/19/2018 12:54 PM Signed FOLLOW UP VISIT - ENDOSCOPY NAME: Shadia Turner CLINIC NO.: [id number] DATE OF SERVICE: 07/16/2018 : 1940 REFERRING PHYSICIAN: Miguel Dominguez MD Shadia is a patient I am following for diverticulitis. The patient is a 77 year old female referred for diverticulitis and questionable pneumaturia. The patient is a 77 year old female referred for endoscopy. Shadia notes a 6-month history of abdominal complaints. She notes a pressure sensation and discomfort in her left lower abdomen intermittently, does not radiate, varies in intensity-states currently 2/10. Notes pressure with having a bowel movement and feels that she passes air when she urinates. Notes recently when wiping after urination she sees stool on the paper. Denies frequent UTIs. She does note a recent history of low-grade fever-100.5. Was evaluated by her PCP who ordered UA and bloodwork as well as CT scan. Urine results reviewed in [employer], positive for occult blood as well as mixed gram positive organisms. CBC was within normal limits. Shadia has undergone prior endoscopy, thinks this was in 2007, by Dr. Lee. She denies a history of polyps. Denies family history of colon cancer. Patient states that in the past she had episodes suspected to be diverticulitis not formally diagnosed. 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 We obtained a CT scan of the abdomen and pelvis. This demonstated mild diverticulitis in the descending colon/proximal sigmoid. There was no colon approximate to the bladder, no bladder thickening and no air in the bladder I performed lower endoscopy on July 09, 2018. The patient was found to have significant tortuosity and diverticulosis which may be concerned for blindly try and advance the scope through the segment through the risk of injury. Endoscopy was aborted. Endoscopically there were no visualized area suspicious for malignancy. A follow-up barium enema was obtained. This demonstrated diverticulosis in the left hemicolon. There was also noted to be a focal area of narrowing with overhanging edges in the midportion of the sigmoid colon. It was listed as a neoplastic process should be ruled out and that there was no evidence obstruction. Reviewing the barium enema in concert with the CT scan I do see what Dr. Haywood is noting. I agree this is most likely a diverticular narrowing segment but also agree that I cannot rule out a malignancy in this area. The patient notes no complaints since the procedure. VITALS: There were no vitals taken for this visit. On examination, the abdomen is benign. 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 I discussed with the patient is actually imperative for me to truly visualize that area and if not then would recommend segmental resection either due to persistent stricture or risk of malignancy. Our plan is for her to return next month and perform endoscopy on Sunday and if I am unable to get around or can truly demonstrate that there is a malignancy or true stenosis then proceed with segmental resection the following day via laparoscopic low anterior resection. If I am all tumor get through the colon segment improve there is no malignancy there are no significant stenosis, then we would plan to cancel surgical resection. Diagnoses: (K57.92) Diverticulitis (primary encounter diagnosis) Return to Clinic: The patient is instructed to follow- up with me in 2 weeks to schedule procedures and verify preoperative prep plans. Neo Malik MD Referring Provider: MIGUEL DOMINGUEZ [[id number]] Allergies As of Date: 07/16/2018 Noted Allergy Reaction AUGMENTIN (AMOXICILLIN-POT CLAVUL*05/08/2018 8 - GI Upset Comments: Unable to tolerate due to GI side effects LATEX 05/26/2009 2 - Rash Date Reviewed: 07/16/2018 Reviewed by: Demetrius Greenwood [employer] - Fully Assessed Reason for Visit: Post Op [174] Cmt: f/u Colonoscopy / BE Primary Visit Diagnosis:Diverticulitis [K57.92] Prescriptions as of 07/16/2018 Sig: GABAPENTIN 100 MG CAPSULE TAKE 1 CAPSULE BY MOUTH THREE* MAGNESIUM 200 MG ( MAGNESIU* Take by mouth. ASPIRIN 81 MG TABLET,DELAYED * Take 81 mg by mouth once willy* VITAMIN D2 ORAL Take by mouth. * CALCIUM 500 MG TABLET Take one(1) tablet twice willy* * MULTIVITAMIN TABLET Take one(1) tablet daily. Problem List As Of Date 07/16/2018 Noted Resolved Osteopenia [M85.80] INVALID FOR* Abdominal adhesions [K66.0] INVALID FOR* Letter Text Encounter Status:Closed by NEO MALIK MD on 07/19/18 BARIUM ENEMA W/AIR Observed: 07/09/2018 Status: F Source: [place] 9:13 AM [facility] REPOSITORY [facility] Imaging Services [address] [place] [id number] Barium Enema w/Air Contrast MR#: [id number] Acct: [id number] Name: SHADIA TURNER Rep #: [id number] : 1940 F 78 From: Dominic Haywood MD PCP: Miguel Dominguez MD Status: REG CLI Study: Barium Enema w/Air Contrast Date of Exam: 07/09/18 Exam# [id number] Ordering Dr: Neo Malik MD STUDY: BARIUM ENEMA. REASON FOR EXAM: Female, 78 years old. Incomplete colonoscopy. FLUOROSCOPY TIME (if supplied): (0:42) minutes/seconds. 13 spot images were obtained. TECHNIQUE: Barium was introduced retrograde through the rectum. The entire colon was opacified. COMPARISON: None. FINDINGS: There is evidence of diverticulosis of the descending colon and sigmoid colon. There is a focal area of narrowing in the midportion of the sigmoid colon with findings suggestive of overhanging edges. A neoplastic process. There is no evidence of obstruction. RAD/Barium Enema w/Air Contrast IMPRESSION: Diverticulosis of the left hemicolon. Focal area of narrowing with overhanging edges in the midportion of the sigmoid colon. A neoplastic process should be ruled out. There is no evidence of obstruction. Electronically Signed: Dominic Haywood MD at 10:19 EST Tel [phone], Service support , CC: Mgiuel Dominguez MD; Neo Malik MD Reimbursement Auditor: Signed NURSING PROG Observed: 07/09/2018 Status: COMPLETED Source: [place] 8:30 AM [facility] REPOSITORY HNO ID: [id number] Author: Sri Cordova RN Service: (none) Author Type: Registered Nurse Type: Nursing Progress Note Filed: 07/09/2018 8:32 AM Note Text: Patient did not experience a fall prior to discharge. Patient did not experience a burn prior to discharge. Sri Cordova RN NURSING PROG Observed: 07/09/2018 Status: COMPLETED Source: [place] 8:16 AM [facility] REPOSITORY HNO ID: [id number] Author: Sri Cordova RN Service: (none) Author Type: Registered Nurse Type: Nursing Progress Note Filed: 07/09/2018 8:17 AM Note Text: Pt to be at hospital at 0900 for barium enema. Pt to remain NPO. Patient, and daughter verbalize understanding. Sri Cordova RN PT ED Observed: 07/09/2018 Status: COMPLETED Source: [place] 8:05 AM [facility] REPOSITORY HNO ID: [id number] Author: Sri AguiarRn) GRABIEL Cordova Service: (none) Author Type: Registered Nurse Type: Patient Education Filed: 07/09/2018 8:06 AM Note Text: POST OP LEARNING RESPONSE INSTRUCTION PROVIDED TO: Patient, Spouse and Daughter METHOD OF INSTRUCTION: Individual instruction Written instruction - handouts Verbal instruction PATIENT / FAMILY RESPONSE: Verbalizes understanding of: MEDICAL REGIMEN-Importance of following prescribed medical regimen POST-PROCEDURE INSTRUCTIONS-Correct actions to take to reduce post procedure complications WORSENING CONDITION-Signs and symptoms of a worsening condition that warrant a call to the physician FOLLOW-UP PLAN: Complete - No need for follow-up Follow up phone call. Contact information given. Barium enema SUPPLEMENTAL MATERIAL: Procedure discharge instructions REFERRAL (RECOMMENDATION): None Electronically Signed By: Sri Cordova RN In Department: AMBULATORY SURGERY NURSING PROG Observed: 07/09/2018 Status: COMPLETED Source: [place] 8:04 AM [facility] REPOSITORY HNO ID: [id number] Author: Sri AguiarRn) GRABIEL Cordova Service: (none) Author Type: Registered Nurse Type: Nursing Progress Note Filed: 07/09/2018 8:04 AM Note Text: Dr. Malik at bedside and spoke patient, and daughter. Pt to have barium enema today if possible. Sri Cordova RN NURSING PROG Observed: 07/09/2018 Status: COMPLETED Source: [place] 7:50 AM [facility] REPOSITORY HNO ID: [id number] Author: Chel AguiarRnRashida Lainez RN Service: Nursing Author Type: Registered Nurse Type: Nursing Progress Note Filed: 07/09/2018 7:51 AM Note Text: Patient did not experience a fall within the Intraoperative area. Patient did not experience a burn within the Intraoperative area. Chel Lainez RN HISTORY PHYSICAL Observed: 07/09/2018 Status: COMPLETED Source: [place] 7:11 AM [facility] REPOSITORY HNO ID: [id number] Author: Neo Malik Service: General Surgery Author Type: Physician Type: HANDP Filed: 07/09/2018 7:11 AM Note Text: HISTORY AND PHYSICAL ? Shadia Turner 1940 ? REFERRING PHYSICIAN: Miguel Dominguez MD ? CHIEF COMPLAINT: follow up ct ? HPI: The patient is a 77 year old female referred for diverticulitis and questionable pneumaturia. ? The patient is a 77 year old female referred for endoscopy. Shadia notes a 6-month history of abdominal complaints. She notes a pressure sensation and discomfort in her left lower abdomen intermittently, does not radiate, varies in intensity-states currently 2/. Notes pressure with having a bowel movement and feels that she passes air when she urinates. Notes recently when wiping after urination she sees stool on the paper. Denies frequent UTIs. She does note a recent history of low-grade fever-100.5. Was evaluated by her PCP who ordered UA and bloodwork as well as CT scan. Urine results reviewed in [place], positive for occult blood as well as mixed gram positive organisms. CBC was within normal limits. ? Shadia has undergone prior endoscopy, thinks this was in 2007, by Dr. Lee. She denies a history of polyps. Denies family history of colon cancer. Patient states that in the past she had episodes suspected to be diverticulitis not formally diagnosed. 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 ? ? We obtained a CT scan of the abdomen and pelvis. This demonstated mild diverticulitis in the descending colon/proximal sigmoid. THere was no colon approximate to the bladder, no bladder thickening and no air in the bladder ? Her pain has resolved ? PAST MEDICAL HISTORY PAST MEDICAL HISTORY Diagnosis Date - Osteoporosis ? ? ? PAST SURGICAL HISTORY PAST SURGICAL HISTORY Procedure Laterality Date - APPENDECTOMY ? ? - COLONOSCOP W/ OR W/O [facility] SPEC ? ? ? Colonoscopy - LAP, SURG ENTEROLYSIS ? 02/22/15 ? intraoperative for Dr. Wharton - LIGATE FALLOPIAN TUBE ? ? - PAST SURGICAL HISTORY OF ? 10/2006 ? right foot surgery - PAST SURGICAL HISTORY OF ? 06/11 ? left foot surgery ? ? ? CURRENT MEDICATIONS ? Current Outpatient Prescriptions: magnesium oxide 200 mg magnesium tab Take by mouth. aspirin, enteric coated (ASPIRIN, ENTERIC COATED) 81 mg EC tablet Take 81 mg by mouth once daily. ERGOCALCIFEROL, VITAMIN D2, (VITAMIN D ORAL) Take by mouth. CALCIUM 500 MG TAB Take one(1) tablet twice daily. w/ vit D MULTIVITAMIN TAB Take one(1) tablet daily. ? No current facility-administered medications for this visit. ? ALLERGIES: Augmentin [Amoxicillin-Pot Clavulanate]; Latex ? PERSONAL HISTORY: SOCIAL HISTORY Social History Marital status: Spouse name: Olivia Years of education: Number of children: 4 ? 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 Social History Main Topics Smoking status: Never Smoker ? Smokeless tobacco: Never Used Alcohol use: No Drug use: No Sexual activity: Yes Partners with: Male control/protection: Tubal Ligation Comment: Postmenopausal ? ? FAMILY HISTORY: FAMILY HISTORY FAMILY HISTORY Problem Relation Age of Onset - Hypertension Mother ? - Osteoporosis Mother ? - other (Dementia) Mother ? - other (lung cancer) Father ? ? smoker ? ? REVIEW OF SYMPTOMS: The review of systems data was entered by the nurse and reviewed by me ? There are no exam notes on file for this visit. ? PHYSICAL EXAMINATION: ? General: The patient is 77 year old female, well nourished, well hydrated in no acute distress. The patient is oriented to time, place, and person. ? VITALS: There were no vitals taken for this visit. There is no height or weight on file to calculate BMI. ? HEENT: Normal cephalic, ataumatic, pupils are equally round, sclera are anicteric, mucous membranes are moist, oropharynx is clear. Neck has no masses, asymmetry or lymphadenopathy. Thyroid is unremarkable. ? Respiratory: Clear to auscultation and percussion. Normal respiratory excursion and pattern. ? Cardiac: Examination is regular rate and rhythm. ? Abdominal exam: Soft, nontender, with no palpable masses. No hepatosplenomegaly. No palpable hernias. ? Rectal exam: exam deferred ? Extremities: no clubbing, cyanosis or edema. No adenopathy. ? Other: ? LABORATORY VALUES: As Noted ? RADIOLOGIC STUDIES: As Noted ? Assessment IMPRESSION: resolved diverticulitis ? PLAN: I plan to perform lower endoscopy. We discussed the risks and benefits of the planned endoscopy. I have informed the patient that complications can occur including failure to complete the endoscopy and perforation. The patient had the opportunity to ask questions concerning the planned endoscopy. My staff has also explained the procedure to the patient in understandable terms and has given the patient printed material concerning the procedure. The patient freely consents to surgery. ? I plan to use golytely bowel preparation for endoscopy ? ? ? Diagnoses: (K57.92) Diverticulitis (primary encounter diagnosis) (R10.32) Abdominal wall pain in left lower quadrant ? A letter was sent to Dr. Miguel Dominguez MD indicating the above finding for this patient. Return to Clinic: The patient is instructed to follow-up with me after the testing has been completed. ? Neo Malik MD NURSING PROG Observed: 07/09/2018 Status: COMPLETED Source: [place] 7:08 AM [facility] REPOSITORY HNO ID: [id number] Author: Sri AguiarRn) GRABIEL Cordova Service: (none) Author Type: Registered Nurse Type: Nursing Progress Note Filed: 07/09/2018 7:15 AM Note Text: [facility] PRE-OP NURSING HAND OFF NOTE SBAR Hand off given to Chel Lainez RN. Hand off was communicated verbally and at the patient's bedside and all questions were answered. FALLS/HOLLOWAY Patient did not experience a fall within the Preoperative area. Patient did not experience a burn within the Preoperative area. Sri Cordova RN PT ED Observed: 07/09/2018 Status: COMPLETED Source: [place] 6:39 AM [facility] REPOSITORY HNO ID: [id number] Author: Sri Cordova RN Service: (none) Author Type: Registered Nurse Type: Patient Education Filed: 07/09/2018 6:51 AM Note Text: PRE OP LEARNING ASSESSMENT PROCEDURE/SURGERY: GI PROCEDURES: Colonoscopy READINESS TO LEARN COGNITIVE ABILITY: Alert and oriented MOTIVATION TO LEARN: Eager FAMILY SUPPORT: High - Very involved in pt care PATIENT LEARNS BEST BY: Multiple Methods FACTORS AFFECTING LEARNING: None PHYSICAL LIMITATIONS AFFECTING LEARNING: None Electronically Signed By: Sri Cordova RN In Department: AMBULATORY SURGERY PROGRESS Observed: 05/29/2018 Status: COMPLETED Source: [place] 9:39 AM [facility] REPOSITORY HNO ID: [id number] Author: Neo Malik Service: (none) Author Type: Physician Type: Progress Notes Filed: 05/29/2018 9:45 AM Note Text: HISTORY AND PHYSICAL Shadia Turner 1940 REFERRING PHYSICIAN: Miguel Dominguez MD CHIEF COMPLAINT: follow up ct HPI: The patient is a 77 year old female referred for diverticulitis and questionable pneumaturia. The patient is a 77 year old female referred for endoscopy. Shadia notes a 6-month history of abdominal complaints. She notes a pressure sensation and discomfort in her left lower abdomen intermittently, does not radiate, varies in intensity-states currently 2/10. Notes pressure with having a bowel movement and feels that she passes air when she urinates. Notes recently when wiping after urination she sees stool on the paper. Denies frequent UTIs. She does note a recent history of low-grade fever-100.5. Was evaluated by her PCP who ordered UA and bloodwork as well as CT scan. [facility] positive for occult blood as well as mixed gram positive organisms. CBC was within normal limits. Shadia has undergone prior endoscopy, thinks this was in 2007, by Dr. Lee. She denies a history of polyps. Denies family history of colon cancer. Patient states that in the past she had episodes suspected to be diverticulitis not formally diagnosed. 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 We obtained a CT scan of the abdomen and pelvis. This demonstated mild diverticulitis in the descending colon/proximal sigmoid. THere was no colon approximate to the bladder, no bladder thickening and no air in the bladder Her pain has resolved PAST MEDICAL HISTORY Diagnosis Date - Osteoporosis PAST SURGICAL HISTORY Procedure Laterality Date - APPENDECTOMY - COLONOSCOP W/ OR W/O [facility] SPEC Colonoscopy - LAP, SURG ENTEROLYSIS 02/22/[address] Wharton - LIGATE FALLOPIAN TUBE - PAST SURGICAL HISTORY OF 10/2006 right foot surgery - PAST SURGICAL HISTORY OF 06/11 left foot surgery Current Outpatient Prescriptions: magnesium oxide 200 mg magnesium tab Take by mouth. aspirin, enteric coated (ASPIRIN, ENTERIC COATED) 81 mg EC tablet Take 81 mg by mouth once daily. ERGOCALCIFEROL, VITAMIN D2, (VITAMIN D ORAL) Take by mouth. CALCIUM 500 MG TAB Take one(1) tablet twice daily. w/ vit D MULTIVITAMIN TAB Take one(1) tablet daily. No current facility-administered medications for this visit. 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 PHYSICAL EXAMINATION: General: The patient is 77 year old female, well nourished, well hydrated in no acute distress. The patient is oriented to time, place, and person. VITALS: There were no vitals taken for this visit. There is no height or weight on file to calculate BMI. HEENT: Normal cephalic, ataumatic, pupils are equally round, sclera are anicteric, mucous membranes are moist, oropharynx is clear. Neck has no masses, asymmetry or lymphadenopathy. Thyroid is unremarkable. Respiratory: Clear to auscultation and percussion. Normal respiratory excursion and pattern. Cardiac: Examination is regular rate and rhythm. Abdominal exam: Soft, nontender, with no palpable masses. No hepatosplenomegaly. No palpable hernias. Rectal exam: exam deferred Extremities: no clubbing, cyanosis or edema. No adenopathy. Other: LABORATORY VALUES: As Noted RADIOLOGIC STUDIES: As Noted Assessment IMPRESSION: resolved diverticulitis PLAN: I plan to perform lower endoscopy. We discussed the risks and benefits of the planned endoscopy. I have informed the patient that complications can occur including failure to complete the endoscopy and perforation. The patient had the opportunity to ask questions concerning the planned endoscopy. My staff has also explained the procedure to the patient in understandable terms and has given the patient printed material concerning the procedure. The patient freely consents to surgery. I plan to use golytely bowel preparation for endoscopy Diagnoses: (K57.92) Diverticulitis (primary encounter diagnosis) (R10.32) Abdominal wall pain in left lower quadrant A letter was sent to Dr. Miguel Dominguez MD indicating the above finding for this patient. Return to Clinic: The patient is instructed to follow-up with me after the testing has been completed. Neo Malik MD CNOV Observed: 05/28/2018 Status: COMPLETED Source: [place] 1:40 PM [facility] REPOSITORY Office Visit (GENSWS) SHADIA TURNER ([id number]) 1940 F Date Time Provider Department 05/28/18 1:40 PM NEO MALIK During your visit today, we recorded the following information about you: Neo Malik MD 05/28/2018 2:56 PM Signed How to Prepare for Your Colonoscopy Using Golytely, Nulytely, Trilyte or Colyte Preparations with Conscious Sedation IMPORTANT - Read These Instructions at Least 2 Weeks Before your Colonoscopy [place] Instructions: ? Your bowel must be empty so that your doctor can clearly view your colon. Follow all of the instructions in this handout EXACTLY as they are written. If you do NOT follow the directions for when to start drinking the bowel preparation, your colonoscopy WILL be cancelled. ? Do NOT eat any solid food the ENTIRE day before your colonoscopy. ? Buy your bowel preparation at least 5 days before your colonoscopy. ? Do NOT mix the solution until the day before your colonoscopy. Designated Gyn Physician on the Day of Your Exam A responsible family member or friend MUST come with you to your colonoscopy and REMAIN in the endoscopy area until you are discharged. You are NOT ALLOWED to drive, take a taxi or bus, or leave the Endoscopy Center ALONE. If you do not have a responsible limb driver (family member or friend) with you to take you home, you exam cannot be done with sedation and will be cancelled. Medications Some of the medications you take may need to be stopped or adjusted before your colonoscopy. You MUST call the doctor who ordered any of the following medicines at least 2 weeks before your colonoscopy. ? Blood thinners - such as Coumadin (warfarin), Plavix (clopidogrel), Ticlid (ticlopidine hydrochloride), Agrylin (anagrelide), Xarelto (Rivaroxaban), Pradaxa (Dabigatran), Eliquis (Apixaban), and Effient (Prasugrel). ? Insulin or diabetes pills. Please call the doctor that monitors your glucose levels. Your insulin dosage may need to be adjusted due to the diet restrictions required with this bowel preparation. (Please bring your diabetes medicines with you on the day of your procedure.) If you take aspirin, take it and ALL other medications prescribed by your doctor. On the day of your colonoscopy, take your medications with a sip of water. Five (5) Days Before Your Colonoscopy ? Do NOT take medicines that stop diarrhea - such as Imodium, Kaopectate, or Pepto Bismol. ? Do NOT take fiber supplements - such as Metamucil, Citrucel, or Perdiem. ? Do NOT take products that contain iron - such as multi-vitamins (the label lists what is in the products). ? Do NOT take Vitamin E. Buy the prescription bowel preparation solution at your local pharmacy or drugstore pharmacy. Three (3) Days Before Your Colonoscopy ? Do NOT eat high-fiber foods - such as popcorn, beans, seeds (flax, sunflower, quinoa), multigrain bread, nuts, salad/vegetables, or fresh and dried fruit. One (1) Day Before Your Colonoscopy Only drink clear liquids the ENTIRE DAY before your colonoscopy. Do NOT eat any solid foods. Drink at least 8 ounces of clear liquids every hour after waking up. The clear liquids you can drink include: ? Water, apple, or white grape juice; broth; coffee or tea (without milk or creamer); clear carbonated beverages such as sydnie ingrid or lemon-seneca-cayuga soda; Gatorade or other sports drinks (not red); Cheikh-Aid or other flavored drinks (not red). You may eat plain jello or other gelatins (not red) or popsicles (not red). Do NOT drink alcohol on the day before or the day of the procedure. When to Mix and Drink Your Bowel Prep Follow the instructions on the label. After mixing, place the solution in the refrigerator for a couple of hours before drinking. You may add the flavor pack that came with the bowel preparation. Do NOT add ice, sugar or any flavorings to the solution. Morning Appointment (Before 12 noon) Step 1: ? Start drinking the bowel preparation at 6 PM the evening before your colonoscopy. Drink an 8-oz glass of bowel preparation every 10 minutes for a total of 8 glasses. ? You may continue to drink clear liquids until bedtime. Step 2: The day of the colonoscopy (4 hours before your exam). ? Drink an 8-oz glass of bowel preparation every 10 minutes for a total of 8 glasses. ? You may continue to drink clear liquids up to 2 hours before your exam. If you take aspirin, take it and ALL other prescribed medicines with a sip of water on the day of your colonoscopy. Afternoon Appointment (After 12 noon) ? Start drinking the bowel preparation at 6 AM the day of your colonoscopy. Drink an 8-oz glass of bowel preparation every 10 minutes. You must finish drinking the solution by 9 AM. ? You may continue to drink clear liquids up to 2 hours before your exam. If you take aspirin, take it and ALL other prescribed medicines with a sip of water on the day of your colonoscopy. Neo Malik MD 05/29/2018 9:45 AM Signed HISTORY AND PHYSICAL Shadia Turner 1940 REFERRING PHYSICIAN: Miguel Dominguez MD CHIEF COMPLAINT: follow up ct HPI: The patient is a 77 year old female referred for diverticulitis and questionable pneumaturia. The patient is a 77 year old female referred for endoscopy. Shadia notes a 6-month history of abdominal complaints. She notes a pressure sensation and discomfort in her left lower abdomen intermittently, does not radiate, varies in intensity-states currently 2/10. Notes pressure with having a bowel movement and feels that she passes air when she urinates. Notes recently when wiping after urination she sees stool on the paper. Denies frequent UTIs. She does note a recent history of low-grade fever-100.5. Was evaluated by her PCP who ordered UA and bloodwork as well as CT scan. [facility], positive for occult blood as well as mixed gram positive organisms. CBC was within normal limits. Shadia has undergone prior endoscopy, thinks this was in 2007, by Dr. Lee. She denies a history of polyps. Denies family history of colon cancer. Patient states that in the past she had episodes suspected to be diverticulitis not formally diagnosed. 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 We obtained a CT scan of the abdomen and pelvis. This demonstated mild diverticulitis in the descending colon/proximal sigmoid. THere was no colon approximate to the bladder, no bladder thickening and no air in the bladder Her pain has resolved PAST MEDICAL HISTORY Diagnosis Date - Osteoporosis PAST SURGICAL HISTORY Procedure Laterality Date - APPENDECTOMY - COLONOSCOP W/ OR W/O [facility] SPEC Colonoscopy - LAP, SURG ENTEROLYSIS 02/22/[address] Wharton - LIGATE FALLOPIAN TUBE - PAST SURGICAL HISTORY OF 10/2006 right foot surgery - PAST SURGICAL HISTORY OF 06/11 left foot surgery Current Outpatient Prescriptions: magnesium oxide 200 mg magnesium tab Take by mouth. aspirin, enteric coated (ASPIRIN, ENTERIC COATED) 81 mg EC tablet Take 81 mg by mouth once daily. ERGOCALCIFEROL, VITAMIN D2, (VITAMIN D ORAL) Take by mouth. CALCIUM 500 MG TAB Take one(1) tablet twice daily. w/ vit D MULTIVITAMIN TAB Take one(1) tablet daily. No current facility-administered medications for this visit. 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 PHYSICAL EXAMINATION: General: The patient is 77 year old female, well nourished, well hydrated in no acute distress. The patient is oriented to time, place, and person. VITALS: There were no vitals taken for this visit. There is no height or weight on file to calculate BMI. HEENT: Normal cephalic, ataumatic, pupils are equally round, sclera are anicteric, mucous membranes are moist, oropharynx is clear. Neck has no masses, asymmetry or lymphadenopathy. Thyroid is unremarkable. Respiratory: Clear to auscultation and percussion. Normal respiratory excursion and pattern. Cardiac: Examination is regular rate and rhythm. Abdominal exam: Soft, nontender, with no palpable masses. No hepatosplenomegaly. No palpable hernias. Rectal exam: exam deferred Extremities: no clubbing, cyanosis or edema. No adenopathy. Other: LABORATORY VALUES: As Noted RADIOLOGIC STUDIES: As Noted Assessment IMPRESSION: resolved diverticulitis PLAN: I plan to perform lower endoscopy. We discussed the risks and benefits of the planned endoscopy. I have informed the patient that complications can occur including failure to complete the endoscopy and perforation. The patient had the opportunity to ask questions concerning the planned endoscopy. My staff has also explained the procedure to the patient in understandable terms and has given the patient printed material concerning the procedure. The patient freely consents to surgery. I plan to use golytely bowel preparation for endoscopy Diagnoses: (K57.92) Diverticulitis (primary encounter diagnosis) (R10.32) Abdominal wall pain in left lower quadrant A letter was sent to Dr. Miguel Dominguez MD indicating the above finding for this patient. Return to Clinic: The patient is instructed to follow-up with me after the testing has been completed. Neo Malik MD Referring Provider: MIGUEL DOMINGUEZ [[id number]] Allergies As of Date: 05/28/2018 Noted Allergy Reaction AUGMENTIN (AMOXICILLIN-POT CLAVUL*05/08/2018 8 - GI Upset Comments: Unable to tolerate due to GI side effects LATEX 05/26/2009 2 - Rash Date Reviewed: 05/28/2018 Reviewed by: Rebecca Harris LPN - Fully Assessed Reason for Visit: follow up ct [Other] Primary Visit Diagnosis:Diverticulitis [K57.92] Other Visit Diagnosis:Abdominal wall pain in left lower quadrant [R10.32] Order(s):MINDA PT ED DIGESTIVE DISEASES [1273686] Order #: [id number]: 1 [] peg 3350-Electrolytes (GOLYTELY) 236-22.74-6.74 -5.86 gram suspensionTake 4,000 mL by mouth one time only for 1 dose. Refer to printed prep instructions from your doctor.Disp: 1 BottleRfl: 0 COLONOSCOPY - DIAGNOSTIC [[id number]] Order #: [id number] FUTURE MINDA PT ED DIGESTIVE DISEASES [[id number]] Order #: [id number]. #:[id number]: 1 Prescriptions as of 05/28/2018 Sig: PEG 3350-ELECTROLYTES 236 GRA* Take 4,000 mL by mouth one ti* MAGNESIUM 200 MG ( MAGNESIU* Take by mouth. ASPIRIN 81 MG TABLET,DELAYED * Take 81 mg by mouth once willy* VITAMIN D2 ORAL Take by mouth. * CALCIUM 500 MG TABLET Take one(1) tablet twice willy* * MULTIVITAMIN TABLET Take one(1) tablet daily. Problem List As Of Date 05/28/2018 Noted Resolved Osteopenia [M85.80] INVALID FOR* Abdominal adhesions [K66.0] INVALID FOR* Other instructions from your clinician: How to Prepare for Your Colonoscopy Using Golytely, Nulytely, Trilyte or Colyte Preparations with Conscious Sedation IMPORTANT - Read These Instructions at Least 2 Weeks Before your Colonoscopy [place] Instructions: ? Your bowel must be empty so that your doctor can clearly view your colon. Follow all of the instructions in this handout EXACTLY as they are written. If you do NOT follow the directions for when to start drinking the bowel preparation, your colonoscopy WILL be cancelled. ? Do NOT eat any solid food the ENTIRE day before your colonoscopy. ? Buy your bowel preparation at least 5 days before your colonoscopy. ? Do NOT mix the solution until the day before your colonoscopy. Designated Gyn Physician on the Day of Your Exam A responsible family member or friend MUST come with you to your colonoscopy and REMAIN in the endoscopy area until you are discharged. You are NOT ALLOWED to drive, take a taxi or bus, or leave the Endoscopy Center ALONE. If you do not have a responsible limb driver (family member or friend) with you to take you home, you exam cannot be done with sedation and will be cancelled. Medications Some of the medications you take may need to be stopped or adjusted before your colonoscopy. You MUST call the doctor who ordered any of the following medicines at least 2 weeks before your colonoscopy. ? Blood thinners - such as Coumadin (warfarin), Plavix (clopidogrel), Ticlid (ticlopidine hydrochloride), Agrylin (anagrelide), Xarelto (Rivaroxaban), Pradaxa (Dabigatran), Eliquis (Apixaban), and Effient (Prasugrel). ? Insulin or diabetes pills. Please call the doctor that monitors your glucose levels. Your insulin dosage may need to be adjusted due to the diet restrictions required with this bowel preparation. (Please bring your diabetes medicines with you on the day of your procedure.) If you take aspirin, take it and ALL other medications prescribed by your doctor. On the day of your colonoscopy, take your medications with a sip of water. Five (5) Days Before Your Colonoscopy ? Do NOT take medicines that stop diarrhea - such as Imodium, Kaopectate, or Pepto Bismol. ? Do NOT take fiber supplements - such as Metamucil, Citrucel, or Perdiem. ? Do NOT take products that contain iron - such as multi- vitamins (the label lists what is in the products). ? Do NOT take Vitamin E. Buy the prescription bowel preparation solution at your local pharmacy or drugstore pharmacy. Three (3) Days Before Your Colonoscopy ? Do NOT eat high-fiber foods - such as popcorn, beans, seeds (flax, sunflower, quinoa), multigrain bread, nuts, salad/vegetables, or fresh and dried fruit. One (1) Day Before Your Colonoscopy Only drink clear liquids the ENTIRE DAY before your colonoscopy. Do NOT eat any solid foods. Drink at least 8 ounces of clear liquids every hour after waking up. The clear liquids you can drink include: ? Water, apple, or white grape juice; broth; coffee or tea (without milk or creamer); clear carbonated beverages such as sydnie ingrid or lemon-seneca-cayuga soda; Gatorade or other sports drinks (not red); Cheikh- Aid or other flavored drinks (not red). You may eat plain jello or other gelatins (not red) or popsicles (not red). Do NOT drink alcohol on the day before or the day of the procedure. When to Mix and Drink Your Bowel Prep Follow the instructions on the label. After mixing, place the solution in the refrigerator for a couple of hours before drinking. You may add the flavor pack that came with the bowel preparation. Do NOT add ice, sugar or any flavorings to the solution. Morning Appointment (Before 12 noon) Step 1: ? Start drinking the bowel preparation at 6 PM the evening before your colonoscopy. Drink an 8-oz glass of bowel preparation every 10 minutes for a total of 8 glasses. ? You may continue to drink clear liquids until bedtime. Step 2: The day of the colonoscopy (4 hours before your exam). ? Drink an 8-oz glass of bowel preparation every 10 minutes for a total of 8 glasses. ? You may continue to drink clear liquids up to 2 hours before your exam. If you take aspirin, take it and ALL other prescribed medicines with a sip of water on the day of your colonoscopy. Afternoon Appointment (After 12 noon) ? Start drinking the bowel preparation at 6 AM the day of your colonoscopy. Drink an 8-oz glass of bowel preparation every 10 minutes. You must finish drinking the solution by 9 AM. ? You may continue to drink clear liquids up to 2 hours before your exam. If you take aspirin, take it and ALL other prescribed medicines with a sip of water on the day of your colonoscopy. Prescriptions ordered this encounter Disp Refills Start End PEG 3350-ELECTROLYTES 236 GRAM-22.74* 1 Federico* 0 05/28/2018 05/28/2018 Route: ORAL Sig: Take 4,000 mL by mouth one time only for 1 dose. Refer to printed prep instructions from your doctor. Letter Text Encounter Status:Closed by NEO MALIK MD on 05/29/18 HOSP Observed: 05/28/2018 Status: COMPLETED Source: [place] 12:00 AM [facility] REPOSITORY Patient:Shadia Turner MRN: <[id number]> Height:5' .8(1.544 m) Weight:No patient weight recorded within the last 30 days. Outpatient Medications as of 07/09/18: magnesium oxide 200 mg magnesium tab aspirin, enteric coated (ASPIRIN, ENTERIC COATED) 81 mg EC tablet ERGOCALCIFEROL, VITAMIN D2, (VITAMIN D ORAL) CALCIUM 500 MG TAB MULTIVITAMIN TAB Admission/Clinic Administered Medications as of 07/09/18: lactated ringers infusion Problem List: Osteopenia [M85.80] Abdominal adhesions [K66.0] Allergies: Augmentin [Amoxicillin-Pot Clavulanate] Latex Date Verified: 07/09/18 Lab Values No results within the last 30 days for the following basenames: K,HCT No progress notes entered within the past 30 days YOLANDE Observed: 05/17/2018 Status: COMPLETED Source: [place] 12:00 AM [facility] REPOSITORY Telephone ([employer]) SHADIA TURNER ([id number]) 1940 F Date Time Provider Department 05/17/18 NEO MALIK [employer] During your visit today, we recorded the following information about you: Odalis Vinay Pss 05/17/2018 9:00 AM Signed Pt called to let Dr. Malik know that she had her CT on 05/15 and will have the results faxed to Dr. Malik. Francie Holley LPN 05/17/2018 9:11 AM Signed Patient called [facility] and they will not fax the results without a request from our office, I let her know we could access them from [place]. Francie Harris LPN 05/17/2018 9:30 AM Signed Printed for review. Rebecca Harris LPN 05/21/2018 7:[address] Malik, Ct shows mild diverticulitis, will review films at [facility]. Rebecca Harris LPN 05/21/2018 1:34 PM Signed Patient notified and voices understanding. Rebecca Harris LPN 05/22/2018 7:[address] Malik, no signs of fitula and does show some mild diverticulitis, recommend follow up appointment with Dr. Malik. Rebecca Harris LPN 05/22/2018 9:13 AM Signed Message to call office. Follow up scheduled. Allergies As of Date: 05/17/2018 Noted Allergy Reaction AUGMENTIN (AMOXICILLIN-POT CLAVUL*05/08/2018 8 - GI Upset Comments: Unable to tolerate due to GI side effects LATEX 05/26/2009 2 - Rash Date Reviewed: 05/03/2018 Reviewed by: Hyacinth (Ariel) Graham - Fully Assessed Reason for Visit: Patient Update [1234] Prescriptions as of 05/17/2018 Sig: CIPROFLOXACIN 500 MG TABLET Take 1 tablet by mouth twice * METRONIDAZOLE 500 MG TABLET Take 1 tablet by mouth twice * MAGNESIUM 200 MG ( MAGNESIU* Take by mouth. ASPIRIN 81 MG TABLET,DELAYED * Take 81 mg by mouth once willy* VITAMIN D2 ORAL Take by mouth. * CALCIUM 500 MG TABLET Take one(1) tablet twice willy* * MULTIVITAMIN TABLET Take one(1) tablet daily. Problem List As Of Date 05/17/2018 Noted Resolved Osteopenia [M85.80] INVALID FOR* Abdominal adhesions [K66.0] INVALID FOR* Encounter Status:Closed by REBECCA HARRIS LPN on 05/21/18 ABDOMEN/PELVIS WITH Observed: 05/15/2018 Status: F Source: [place] 12:56 PM [facility] REPOSITORY [facility] Imaging Services [address] [place] [id number] Abdomen/Pelvis WITH Contrast MR#: [id number] Acct: [id number] Name: SHADIA TURNER Rep #: [id number] : 1940 F 77 From: Dominic Haywood MD PCP: Miguel Dominguez MD Status: REG CLI Study: Abdomen/Pelvis WITH Contrast Date of Exam: 05/15/18 Exam# [id number] Ordering Dr: Miguel Dominguez MD STUDY: CT ABDOMEN AND PELVIS WITH CONTRAST REASON FOR EXAM: Female, 77 years old. Left lower quadrant pain. RADIATION DOSAGE (If Supplied By Facility): CTDIvol = ( 13.89 ) mGy, DLP = ( 699.89 ) mGycm TECHNIQUE: Transaxial images were obtained from the dome of the diaphragm to the symphysis pubis with oral contrast. 100 ml of Isovue 300 contrast was administered. Sagittal and coronal images were reconstructed. Individualized dose optimization techniques were used for this CT. COMPARISON: Comparison is made with prior study dated December 22, 2014. FINDINGS: Stable minimal increased markings at the lung bases suggests a mild bibasilar scarring. The visualized portions of the heart are within normal limits. Normal liver. Normal gallbladder and extrahepatic biliary system. Normal spleen. Normal pancreas. Normal bilateral adrenal glands. Stable small right renal cysts. Stable left parapelvic cysts. Normal visualized stomach. There is a 2 cm diverticulum in the second portion of the duodenum. There are multiple colonic diverticula consistent with diverticulosis. Mild degree of increased markings in the fat surrounding the mid descending colon. This may represent a mild degree of mid descending colon diverticulitis. The appendix is visualized and appears normal. There is diffuse atherosclerotic calcification of the abdominal aorta and its major visceral branches, without a demonstrated aneurysm. Normal inferior vena cava. There is borderline retroperitoneal lymphadenopathy with enlarged nodes no greater than 10mm in the short axis diameter. Normal urinary bladder. The previously seen cyst in the left adnexal region is not seen at this time. There is a small umbilical hernia containing fat. There are degenerative changes of the visualized lumbar spine. CT/Abdomen/Pelvis WITH Contrast IMPRESSION: Findings suggestive of a mild degree of early diverticulitis in the mid descending colon. The previously seen cyst in the left adnexa has resolved. Electronically Signed: Dominic Haywood MD at 13:49 EDT Tel [phone], Service support , CC: Miguel Dominguez MD Reimbursement Auditor: Signed CNPN Observed: 05/07/2018 Status: COMPLETED Source: [place] 12:00 AM [facility] REPOSITORY Telephone ([employer]) SHADIA TURNER ([id number]) 1940 F Date Time Provider Department 05/07/18 GRAHAM, HYACINTH (PA) [employer] During your visit today, we recorded the following information about you: Kay Middleton Ma 05/07/2018 8:53 AM Signed Pt saw ARIEL Abebe on Sunday. Placed on Amoxacillin. Pt had to stop yesterday due to severe uncontrollable diarrhea, nausea, and vomiting. Advised that we would let the providers know and call back with any instructions. She will not take anymore of the medication. Kay Iyer PA-C 05/08/2018 10:50 AM Signed Noted. Augmentin added to patient's medication allergy/intolerance list due to GI upset. Would plan for Cipro and Flagyl twice daily for 10 days instead, new Rx sent pharmacy on file. Please let patient know she should separate the antibiotics, particularly the Cipro, a few hours from when she takes her magnesium and calcium as those can decrease effectiveness of the antibiotic. Demetrius Greenwood LPN 05/08/2018 12:16 PM Signed Pt notified AND verbalized understanding Demetrius Iyer PA-C 05/10/2018 11:25 AM Signed Called and left message for patient to call with progress report. Note it appears her new Rx for antibiotics did not go through to the pharmacy yet, this is now filed and she should start as soon as possible. In addition please make sure she is staying on a nutrition services worker more clear liquid diet and jello which Dr. Malik states will help her to tolerate the antibiotics. Cecilia Nesbitt RN 05/10/2018 11:34 AM Signed Patient called and stated she will start the antibiotics right away. She does not have much appetite. I gave her the instructions for her diet and she demonstrated an understanding of this. Cecilia Nesbitt RN Allergies As of Date: 05/07/2018 Noted Allergy Reaction LATEX 05/26/2009 2 - Rash Date Reviewed: 05/03/2018 Reviewed by: Hyacinth Iyer (Pa) - Fully Assessed Reason for Visit: Patient Update [1234] Primary Visit Diagnosis:Abdominal wall pain in left lower quadrant [R10.32] Order(s):ciprofloxacin HCl (CIPRO) 500 mg tabletTake 1 tablet by mouth twice daily for 10 days.Disp: 20 tabletRfl: 0 metroNIDAZOLE (FLAGYL) 500 mg tabletTake 1 tablet by mouth twice daily for 10 days.Disp: 20 tabletRfl: 0 Prescriptions as of 05/07/2018 Sig: CIPROFLOXACIN 500 MG TABLET Take 1 tablet by mouth twice * METRONIDAZOLE 500 MG TABLET Take 1 tablet by mouth twice * MAGNESIUM 200 MG ( MAGNESIU* Take by mouth. ASPIRIN 81 MG TABLET,DELAYED * Take 81 mg by mouth once willy* VITAMIN D2 ORAL Take by mouth. * CALCIUM 500 MG TABLET Take one(1) tablet twice willy* * MULTIVITAMIN TABLET Take one(1) tablet daily. Medication notes this encounter AMOXICILLIN 875 MG-POTASSIUM CLAVULANATE 125 MG TABLET >> Hyacinth Iyer PA-C 05/08/2018 10:40 AM GI upset Problem List As Of Date 05/07/2018 Noted Resolved Osteopenia [M85.80] INVALID FOR* Abdominal adhesions [K66.0] INVALID FOR* Prescriptions ordered this encounter Disp Refills Start End CIPROFLOXACIN 500 MG TABLET 20 t* 0 05/10/2018 05/20/2018 Route: ORAL Sig: Take 1 tablet by mouth twice daily for 10 days. METRONIDAZOLE 500 MG TABLET 20 t* 0 05/10/2018 05/20/2018 Route: ORAL Sig: Take 1 tablet by mouth twice daily for 10 days. Medications Discontinued During This Encounter amoxicillin-clavulanic acid (AUGMENT* 28 t* 0 05/03/2018 05/08/2018 Route: ORAL Sig: Take 1 tablet by mouth twice daily for 14 days. 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 Shadia notes a 6-month history of abdominal complaints. She notes a pressure sensation and discomfort in her left lower abdomen intermittently, does not radiate, varies in intensity-states currently 2/10. Notes pressure with having a bowel movement and feels that she passes air when she urinates. Notes recently when wiping after urination she sees stool on the paper. Denies frequent UTIs. She does note a recent history of low-grade fever-100.5. Was evaluated by her PCP who ordered UA and bloodwork as well as CT scan. [facility], positive for occult blood as well as mixed gram positive organisms. CBC was within normal limits. Shadia has undergone prior endoscopy, thinks this was in 2007, by Dr. Lee. She denies a history of polyps. Denies family history of colon cancer. Patient states that in the past she had episodes suspected to be diverticulitis not formally diagnosed. 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 Past medical history significant for osteoporosis. Patient states she maintains an active lifestyle and enjoys overall good health. Denies cardiac or pulmonary issues, and denies problems with sedation in the past. PAST MEDICAL HISTORY Diagnosis Date - Osteoporosis PAST SURGICAL HISTORY Procedure Laterality Date - APPENDECTOMY - COLONOSCOP W/ OR W/O [facility] SPEC Colonoscopy - LAP, SURG ENTEROLYSIS 02/22/[address] Wharton - LIGATE FALLOPIAN TUBE - PAST SURGICAL HISTORY OF 10/2006 right foot surgery - PAST SURGICAL HISTORY OF 06/11 left foot surgery Current Outpatient Prescriptions: magnesium oxide 200 mg magnesium tab Take by mouth. aspirin, enteric coated (ASPIRIN, ENTERIC COATED) 81 mg EC tablet Take 81 mg by mouth once daily. ERGOCALCIFEROL, VITAMIN D2, (VITAMIN D ORAL) Take by mouth. MULTIVITAMIN TAB Take one(1) tablet daily. CALCIUM 500 MG TAB Take one(1) tablet twice daily. w/ vit D No current facility-administered medications for this visit. 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 Social History Main Topics Smoking status: Never Smoker Smokeless tobacco: Never Used Alcohol use: No Drug use: No Sexual activity: Yes Partners with: Male control/protection: Tubal Ligation Comment: Postmenopausal FAMILY HISTORY: FAMILY HISTORY Problem Relation Age of Onset - Hypertension Mother - Osteoporosis Mother - other (Dementia) Mother - other (lung cancer) Father smoker REVIEW OF SYMPTOMS: The review of systems data was entered by the nurse and reviewed by me Nursing Notes: Rebecca Harris LPN 05/03/2018 1:40 PM Signed REVIEW OF SYSTEMS: General: The patient denies fatigue, denies weight loss, denies weight gain, denies feeling hot, and denies feelings of cold. Eyes: The patient denies glaucoma, denies eye injury/surgery, does not wear glasses or contacts. Ear/Nose/Throat: The patient denies allergies, NOTES hayfever, denies ear infections, and denies bloody noses. Cardiovascular: The patient denies chest pain, denies heart disease, denies high blood pressure,denies cardiac stent, denies prior heart attack, denies irregular heart beat, denies high cholesterol, denies poor circulation, denies heart failure, other cardiac issues, denies claudication, denies cold feet, denies peripheral arterial stent. Respiratory: The patient denies tuberculosis, denies pneumonia, denies frequent cough, denies pulmonary embolism, denies shortness of breath, and denies coughing up blood. Gastrointestinal: The patient denies difficulty swallowing, denies acid reflux, denies ulcers, denies vomiting, denies jaundice/hepatitis, denies gallbladder problems, denies black or tarry stools, denies hemorrhoids, denies bleeding from rectum, denies diverticulitis, denies constipation, denies diarrhea, NOTES loss of stool control, and denies hernias. Kidney/Bladder: The patient denies kidney stones, denies urine infections, and denies bloody urine. Skin: The patient denies a history of skin cancer, denies bleeding/changing moles, and denies a history of skin rash. Neurologic: The patient denies a history of epilepsy/convulsions, denies headaches, denies head/spinal injuries, and denies stroke/TIA. Psychiatric: The patient denies psychiatric medications, denies depression, and denies voices, denies substance abuse. Endocrine: The patient denies thyroid disorders, denies diabetes, and denies hormonal problems. Hematologic: The patient denies a history of bruising, denies bleeding, and denies anemia, denies blood clots. Infections: The patient denies a history of measles and mumps, denies rheumatic fever, and denies sexually transmitted diseases. Musculoskeletal: The patient denies back pain/injury, denies back problems, denies sciatica, denies knee/foot trouble, denies arthritis, or denies gout. When was patient's last Mammogram screening? 2016 Last Colonoscopy: YEARS AGO Rebecca Harris LPN I have confirmed and edited as necessary, the PFSH and ROS obtained by others. PHYSICAL EXAMINATION: General: The patient is 77 year old female, well nourished, well hydrated in no acute distress. The patient is oriented to time, place, and person. VITALS: Blood pressure 141/68, pulse 78, temperature 36.8 ?C (98.2 ?F), weight 64.4 kg (142 lb), SpO2 96 %. Body mass index is 27.01 kg/m?. HEENT: Normal cephalic, ataumatic, pupils are equally round, sclera are anicteric, mucous membranes are moist, oropharynx is clear. Neck has no masses, asymmetry or lymphadenopathy. Respiratory: Clear to auscultation and percussion. Normal respiratory excursion and pattern. Cardiac: Examination is regular rate and rhythm. Abdominal exam: Soft, nontender, with no palpable masses. No hepatosplenomegaly. No palpable hernias. Rectal exam: exam deferred Extremities: no clubbing, cyanosis or edema. No adenopathy. Other: LABORATORY VALUES: As Noted RADIOLOGIC STUDIES: As Noted Assessment IMPRESSION: left lower quadrant abdominal pain and pressure, pneumaturia, reported history of intermittent low-grade fevers-suspect diverticulitis with concern for colovesical fistula PLAN: Dr. Malik also evaluated the patient and participated in development of the following plan. We will begin Augmentin empirically for suspected diverticulitis based on history-patient awaiting insurance approval for CT scan ordered by PCP. She is instructed to follow up with Dr. Malik in office after the CT is completed. Would plan for a delayed colonoscopy in approximately 6 weeks once acute inflammation resolved. Patient verbalized understanding of above and agreed with the plan. Diagnoses: (R10.32) Abdominal wall pain in left lower quadrant (primary encounter diagnosis) (R39.89) Pneumaturia (Z87.898) History of fever I spent 30 minutes in the visit, with more than 50% of the total bqrm-lt-[id number] time of the visit in counseling / coordination of care. SAVANAH Abebe Observed: 05/03/2018 Status: COMPLETED Source: [place] 1:30 PM [facility] REPOSITORY Office Visit (GENSWS) SHADIA TURNER ([id number]) 1940 F Date Time Provider Department 05/03/18 1:30 PM HYACINTH IYER) GENSWS During your visit today, we recorded the following information about you: Temperature Pulse Blood pressure Weight 98.2 degrees 78/minute 141/68 64.4 kg Rebecca Harris SALLY 05/03/2018 1:40 PM Signed REVIEW OF SYSTEMS: General: The patient denies fatigue, denies weight loss, denies weight gain, denies feeling hot, and denies feelings of cold. Eyes: The patient denies glaucoma, denies eye injury/surgery, does not wear glasses or contacts. Ear/Nose/Throat: The patient denies allergies, NOTES hayfever, denies ear infections, and denies bloody noses. Cardiovascular: The patient denies chest pain, denies heart disease, denies high blood pressure,denies cardiac stent, denies prior heart attack, denies irregular heart beat, denies high cholesterol, denies poor circulation, denies heart failure, other cardiac issues, denies claudication, denies cold feet, denies peripheral arterial stent. Respiratory: The patient denies tuberculosis, denies pneumonia, denies frequent cough, denies pulmonary embolism, denies shortness of breath, and denies coughing up blood. Gastrointestinal: The patient denies difficulty swallowing, denies acid reflux, denies ulcers, denies vomiting, denies jaundice/hepatitis, denies gallbladder problems, denies black or tarry stools, denies hemorrhoids, denies bleeding from rectum, denies diverticulitis, denies constipation, denies diarrhea, NOTES loss of stool control, and denies hernias. Kidney/Bladder: The patient denies kidney stones, denies urine infections, and denies bloody urine. Skin: The patient denies a history of skin cancer, denies bleeding/changing moles, and denies a history of skin rash. Neurologic: The patient denies a history of epilepsy/convulsions, denies headaches, denies head/spinal injuries, and denies stroke/TIA. Psychiatric: The patient denies psychiatric medications, denies depression, and denies voices, denies substance abuse. Endocrine: The patient denies thyroid disorders, denies diabetes, and denies hormonal problems. Hematologic: The patient denies a history of bruising, denies bleeding, and denies anemia, denies blood clots. Infections: The patient denies a history of measles and mumps, denies rheumatic fever, and denies sexually transmitted diseases. Musculoskeletal: The patient denies back pain/injury, denies back problems, denies sciatica, denies knee/foot trouble, denies arthritis, or denies gout. When was patient's last Mammogram screening? 2016 Last Colonoscopy: YEARS AGO Rebecca Ieyr PA-C 05/03/2018 4:58 PM Signed HISTORY AND PHYSICAL Shadia Turner 1940 REFERRING PHYSICIAN: Miguel Dominguez MD CHIEF COMPLAINT: Consult HPI: The patient is a 77 year old female referred for endoscopy. Shadia notes a 6-month history of abdominal complaints. She notes a pressure sensation and discomfort in her left lower abdomen intermittently, does not radiate, varies in intensity-states currently 2/10. Notes pressure with having a bowel movement and feels that she passes air when she urinates. Notes recently when wiping after urination she sees stool on the paper. Denies frequent UTIs. She does note a recent history of low-grade fever-100.5. Was evaluated by her PCP who ordered UA and bloodwork as well as CT scan. [facility], positive for occult blood as well as mixed gram positive organisms. CBC was within normal limits. Shadia has undergone prior endoscopy, thinks this was in 2007, by Dr. Lee. She denies a history of polyps. Denies family history of colon cancer. Patient states that in the past she had episodes suspected to be diverticulitis not formally diagnosed. 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 Past medical history significant for osteoporosis. Patient states she maintains an active lifestyle and enjoys overall good health. Denies cardiac or pulmonary issues, and denies problems with sedation in the past. PAST MEDICAL HISTORY Diagnosis Date - Osteoporosis PAST SURGICAL HISTORY Procedure Laterality Date - APPENDECTOMY - COLONOSCOP W/ OR W/O [facility] SPEC Colonoscopy - LAP, SURG ENTEROLYSIS 02/22/[address] Wharton - LIGATE FALLOPIAN TUBE - PAST SURGICAL HISTORY OF 10/2006 right foot surgery - PAST SURGICAL HISTORY OF 06/11 left foot surgery Current Outpatient Prescriptions: magnesium oxide 200 mg magnesium tab Take by mouth. aspirin, enteric coated (ASPIRIN, ENTERIC COATED) 81 mg EC tablet Take 81 mg by mouth once daily. ERGOCALCIFEROL, VITAMIN D2, (VITAMIN D ORAL) Take by mouth. MULTIVITAMIN TAB Take one(1) tablet daily. CALCIUM 500 MG TAB Take one(1) tablet twice daily. w/ vit D No current facility-administered medications for this visit. 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 Social History Main Topics Smoking status: Never Smoker Smokeless tobacco: Never Used Alcohol use: No Drug use: No Sexual activity: Yes Partners with: Male control/protection: Tubal Ligation Comment: Postmenopausal FAMILY HISTORY: FAMILY HISTORY Problem Relation Age of Onset - Hypertension Mother - Osteoporosis Mother - other (Dementia) Mother - other (lung cancer) Father smoker REVIEW OF SYMPTOMS: The review of systems data was entered by the nurse and reviewed by wa Nursing Notes: Rebecca Harris LPN 05/03/2018 1:40 PM Signed REVIEW OF SYSTEMS: General: The patient denies fatigue, denies weight loss, denies weight gain, denies feeling hot, and denies feelings of cold. Eyes: The patient denies glaucoma, denies eye injury/surgery, does not wear glasses or contacts. Ear/Nose/Throat: The patient denies allergies, NOTES hayfever, denies ear infections, and denies bloody noses. Cardiovascular: The patient denies chest pain, denies heart disease, denies high blood pressure,denies cardiac stent, denies prior heart attack, denies irregular heart beat, denies high cholesterol, denies poor circulation, denies heart failure, other cardiac issues, denies claudication, denies cold feet, denies peripheral arterial stent. Respiratory: The patient denies tuberculosis, denies pneumonia, denies frequent cough, denies pulmonary embolism, denies shortness of breath, and denies coughing up blood. Gastrointestinal: The patient denies difficulty swallowing, denies acid reflux, denies ulcers, denies vomiting, denies jaundice/hepatitis, denies gallbladder problems, denies black or tarry stools, denies hemorrhoids, denies bleeding from rectum, denies diverticulitis, denies constipation, denies diarrhea, NOTES loss of stool control, and denies hernias. Kidney/Bladder: The patient denies kidney stones, denies urine infections, and denies bloody urine. Skin: The patient denies a history of skin cancer, denies bleeding/changing moles, and denies a history of skin rash. Neurologic: The patient denies a history of epilepsy/convulsions, denies headaches, denies head/spinal injuries, and denies stroke/TIA. Psychiatric: The patient denies psychiatric medications, denies depression, and denies voices, denies substance abuse. Endocrine: The patient denies thyroid disorders, denies diabetes, and denies hormonal problems. Hematologic: The patient denies a history of bruising, denies bleeding, and denies anemia, denies blood clots. Infections: The patient denies a history of measles and mumps, denies rheumatic fever, and denies sexually transmitted diseases. Musculoskeletal: The patient denies back pain/injury, denies back problems, denies sciatica, denies knee/foot trouble, denies arthritis, or denies gout. When was patient's last Mammogram screening? 2016 Last Colonoscopy: YEARS AGO Rebecca Harris LPN I have confirmed and edited as necessary, the PFSH and ROS obtained by others. PHYSICAL EXAMINATION: General: The patient is 77 year old female, well nourished, well hydrated in no acute distress. The patient is oriented to time, place, and person. VITALS: Blood pressure 141/68, pulse 78, temperature 36.8 ?C (98.2 ?F), weight 64.4 kg (142 lb), SpO2 96 %. Body mass index is 27.01 kg/m?. HEENT: Normal cephalic, ataumatic, pupils are equally round, sclera are anicteric, mucous membranes are moist, oropharynx is clear. Neck has no masses, asymmetry or lymphadenopathy. Respiratory: Clear to auscultation and percussion. Normal respiratory excursion and pattern. Cardiac: Examination is regular rate and rhythm. Abdominal exam: Soft, nontender, with no palpable masses. No hepatosplenomegaly. No palpable hernias. Rectal exam: exam deferred Extremities: no clubbing, cyanosis or edema. No adenopathy. Other: LABORATORY VALUES: As Noted RADIOLOGIC STUDIES: As Noted Assessment IMPRESSION: left lower quadrant abdominal pain and pressure, pneumaturia, reported history of intermittent low-grade fevers-suspect diverticulitis with concern for colovesical fistula PLAN: Dr. Malik also evaluated the patient and participated in development of the following plan. We will begin Augmentin empirically for suspected diverticulitis based on history-patient awaiting insurance approval for CT scan ordered by PCP. She is instructed to follow up with Dr. Malik in office after the CT is completed. Would plan for a delayed colonoscopy in approximately 6 weeks once acute inflammation resolved. Patient verbalized understanding of above and agreed with the plan. Diagnoses: (R10.32) Abdominal wall pain in left lower quadrant (primary encounter diagnosis) (R39.89) Pneumaturia (Z87.898) History of fever I spent 30 minutes in the visit, with more than 50% of the total kekw-eu-swpq time of the visit in counseling / coordination of care. SAVANAH Abebe PA-C 05/03/2018 2:10 PM Addendum -Begin Augmentin -Follow up with Dr. Malik after CT scan -Plan for delayed colonoscopy once acute inflammation resolved Referring Provider: MIGUEL DOMINGUEZ [[id number]] Allergies As of Date: 05/03/2018 Noted Allergy Reaction LATEX 05/26/2009 2 - Rash Date Reviewed: 05/03/2018 Reviewed by: Hyacinth Iyer (Pa) - Fully Assessed Reason for Visit: Consult [173] Primary Visit Diagnosis:Abdominal wall pain in left lower quadrant [R10.32] Other Visit Diagnoses:Pneumaturia [R39.89] History of fever [Z87.898] Order(s):amoxicillin-clavulanic acid (AUGMENTIN) 875-125 mg per tabletTake 1 tablet by mouth twice daily for 14 days.Disp: 28 tabletRfl: 0 Prescriptions as of 05/03/2018 Sig: MAGNESIUM 200 MG ( MAGNESIU* Take by mouth. ASPIRIN 81 MG TABLET,DELAYED * Take 81 mg by mouth once willy* VITAMIN D2 ORAL Take by mouth. * MULTIVITAMIN TABLET Take one(1) tablet daily. AMOXICILLIN 875 MG-POTASSIUM * Take 1 tablet by mouth twice * * CALCIUM 500 MG TABLET Take one(1) tablet twice willy* Problem List As Of Date 05/03/2018 Noted Resolved Osteopenia [M85.80] INVALID FOR* Abdominal adhesions [K66.0] INVALID FOR* Other instructions from your clinician: -Begin Augmentin -Follow up with Dr. Malik after CT scan -Plan for delayed colonoscopy once acute inflammation resolved Visit Notes: >> Rebecca Harris LPN SunMay 03, 2018 1:39 PM Status: Signed REVIEW OF SYSTEMS: General: The patient denies fatigue, denies weight loss, denies weight gain, denies feeling hot, and denies feelings of cold. Eyes: The patient denies glaucoma, denies eye injury/surgery, does not wear glasses or contacts. Ear/Nose/Throat: The patient denies allergies, NOTES hayfever, denies ear infections, and denies bloody noses. Cardiovascular: The patient denies chest pain, denies heart disease, denies high blood pressure,denies cardiac stent, denies prior heart attack, denies irregular heart beat, denies high cholesterol, denies poor circulation, denies heart failure, other cardiac issues, denies claudication, denies cold feet, denies peripheral arterial stent. Respiratory: The patient denies tuberculosis, denies pneumonia, denies frequent cough, denies pulmonary embolism, denies shortness of breath, and denies coughing up blood. Gastrointestinal: The patient denies difficulty swallowing, denies acid reflux, denies ulcers, denies vomiting, denies jaundice/hepatitis, denies gallbladder problems, denies black or tarry stools, denies hemorrhoids, denies bleeding from rectum, denies diverticulitis, denies constipation, denies diarrhea, NOTES loss of stool control, and denies hernias. Kidney/Bladder: The patient denies kidney stones, denies urine infections, and denies bloody urine. Skin: The patient denies a history of skin cancer, denies bleeding/changing moles, and denies a history of skin rash. Neurologic: The patient denies a history of epilepsy/convulsions, denies headaches, denies head/spinal injuries, and denies stroke/TIA. Psychiatric: The patient denies psychiatric medications, denies depression, and denies voices, denies substance abuse. Endocrine: The patient denies thyroid disorders, denies diabetes, and denies hormonal problems. Hematologic: The patient denies a history of bruising, denies bleeding, and denies anemia, denies blood clots. Infections: The patient denies a history of measles and mumps, denies rheumatic fever, and denies sexually transmitted diseases. Musculoskeletal: The patient denies back pain/injury, denies back problems, denies sciatica, denies knee/foot trouble, denies arthritis, or denies gout. When was patient's last Mammogram screening? 2016 Last Colonoscopy: YEARS AGO Rebecca Harris LPN Prescriptions ordered this encounter Disp Refills Start End AMOXICILLIN 875 MG-POTASSIUM CLAVULA* 28 t* 0 05/03/2018 05/17/2018 Route: ORAL Sig: Take 1 tablet by mouth twice daily for 14 days. Follow-up and Disposition History Recorded Encounter Status:Closed by HYACINTH IYER PA-C on 05/03/18 URINALYSIS, COMPLETE Collected: 04/29/2018 Status: F Source: [place] 12:44 PM [facility] REPOSITORY Order Comment: How was Urine Obtained? CLEAN CATCH TYPE CODE TESTS RESULT OUT OF RANGE REFERENCE UNITS LAB L400.3000 Yellow COLOR Normal Yellow LAB L400.3050 Clear Normal CLARITY Clear LAB L400.3200 Normal mg/dl Normal GLUCOSE, UR Normal LAB L400.3300 Negative mg/dL Normal BILIRUBIN URINE Negative LAB L400.3400 Negative mg/dl High 15 KETONE UR LAB L400.3465 1.002-1.030 Normal SP.GR. DIPSTX 1.010 LAB L400.3550 5.0 - 8.0 pH UR Normal 6.0 LAB L400.3600 Negative mg/dl PROT Normal DIPSTX Negative LAB L400.3700 Normal mg/dl Normal UROBILI Normal LAB L400.3750 Negative Normal NITRITE UR Negative LAB L400.3780 Negative /ul High OCCULT BLOOD-UR 150 LAB L400.3800 Negative /ul LEUK Normal ESTERASE Negative LAB L400.4050 0-5 /hpf WBC 0 Normal SEEN LAB L400.4100 0-5 /hpf Normal RBC-UA 0-5 SEEN LAB L400.4150 5-10 /hpf SQUAM Normal EPI 0-5 SEEN LAB L400.4300 None Seen /hpf 0 Normal BACTERIA SEEN LAB L400.4350 <or=2+ /hpf 0 Normal MUCUS, URINE SEEN Performed By: #### L400.0001 #### [facility] [address] [place], [address] ERYTHROCYTE SED RATE Collected: 04/29/2018 Status: F Source: [place] 12:44 PM [facility] REPOSITORY TYPE CODE TESTS RESULT OUT OF RANGE REFERENCE UNITS LAB L102.0000 0-30 mm/hr Normal SED RATE 16 Performed By: #### L101.9900, L100.0100 #### [facility] [address] [place], [address] CBC W/DIFF, AUTOMATED Collected: 04/29/2018 Status: F Source: [place] 12:44 PM [facility] REPOSITORY TYPE CODE TESTS RESULT OUT OF RANGE REFERENCE UNITS LAB L100.1000 4.4-11.0 K/mm3 Normal WBC 6.6 LAB L100.1200 4.2-5.4 M/mm3 Normal RBC 5.03 LAB L100.1300 12.0-15.0 g/dl High HGB 15.1 LAB L100.1400 37-47 % Normal HCT 45.3 LAB L100.1500 81-99 fL Normal MCV 90.1 LAB L100.1600 27.0-32.0 pg Normal MCH 30.0 LAB L100.1700 32-36 g/gl Normal MCHC 33.3 LAB L100.1810 11.6-14.6 % Normal RDW CV 13.6 LAB L100.1820 35.1-43.9 fl High RDW SD 44.5 LAB L100.1900 150-450 K/mm3 Normal PLT 218 LAB L100.2000 6.2-12.0 fl Normal MPV 11.5 LAB L100.2100 47-70 % Normal NEUT% 54.5 LAB L100.2200 19-41 % Normal LY% 31.7 LAB L100.2300 0-10 % Normal MONO% 10.0 LAB L100.2400 0-5 % Normal EO% 2.4 LAB L100.2500 0-1 % Normal BASO% 0.9 LAB L100.2550 0.0-0.9 % Normal IM GRAN % 0.500 Result Comment: IG% - Immature Granulocytes (promyelocytes, myelocytes and metamyelocytes) > 1% indicates that a LEFT SHIFT is Present. LAB L100.2620 2.0-7.7 X10 3/uL Normal Absolute Neut 3.6 LAB L100.2720 0.83-4.51 X10 3/ul Normal Absolute Lymph 2.09 Performed By: #### L101.9900, L100.0100 #### [facility] [address] [facility], [address] PTHIN Collected: 04/29/2018 Status: F Source: [place] 12:44 PM [facility] REPOSITORY TYPE CODE TESTS RESULT OUT OF RANGE REFERENCE UNITS LAB L509.1000 18.4-80.1 pg/mL Normal PTHIN 48.4 Performed By: #### L509.1000 #### [facility] [address] [facility], [address] COMPREHENSIVE METABOLIC Collected: 04/29/2018 Status: F Source: [facility] 12:44 PM [facility] REPOSITORY TYPE CODE TESTS RESULT OUT OF RANGE REFERENCE UNITS LAB L501.0100 74-106 mg/dL Normal GLU 87 Result Comment: Please note revised GLUCOSE reference range effective 2017. LAB L501.1000 7-18 mg/dL Normal BUN 13 LAB L501.1100 0.55-1.02 mg/dL High CREAT,SERUM 1.05 Result Comment: The validity of the calculated GFR AND GFRAA in patients over 70 years has not been determined. Clinical correlation is essential. LAB L501.1110 >60 mL/min Low EST GFR 54 Result Comment: Non- GFR Calc LAB L501.1115 >60 mL/min Normal EST GFR - AA 65 Result Comment: GFR Calc LAB L501.1300 10-20 RATIO Normal BUN/CRE 12.4 LAB L501.1500 6.4-8.2 g/dL T Normal PROT 7.3 LAB L501.1800 3.2-5.0 g/dL Normal ALB 3.3 LAB L501.1950 2.2-4.2 g/dL Normal GLOB 4.0 LAB L501.2000 0.9-2.4 RATIO Low A/G 0.8 LAB L501.2200 8.5-10.1 mg/dL CA Normal 9.2 LAB L501.4100 15-37 U/L Normal AST 21 LAB L501.4305 45-117 U/L Normal ALK P 62 LAB L501.4405 13-56 U/L Normal ALT 23 LAB L501.4600 0.20-1.00 mg/dL T Normal BILI 0.50 LAB L501.5300 136-145 mmol/L NA Normal 141 LAB L501.5600 3.5-5.1 mmol/L K Normal 4.2 LAB L501.5900 98-107 mmol/L CL Normal 105 LAB L501.6100 21.0-32.0 mmol/L Normal CO2 23.0 LAB L501.6200 5-15 Normal GAP 13 Performed By: #### L500.4050, L501.6710, L501.9520 #### [facility] [address] [facility] [place], [place], [id number] CRP Collected: 04/29/2018 Status: F Source: [place] 12:44 PM [facility] REPOSITORY TYPE CODE TESTS RESULT OUT OF RANGE REFERENCE UNITS LAB L501.6710 0.0-3.0 mg/L High 53.60 C-REACTIVE PROT Result Comment: C-Reactive Protein (CRP) provides useful information for the diagnosis, therapy and monitoring of inflammatory processes and associated diseases. For the evaluation of Relative Risk for Cardiovascular Disease, a High Sensitivity CRP (HSCRP) should be ordered. Performed By: #### L500.4050, L501.6710, L501.9520 #### [facility] [address] [facility] [place], [place], [id number] THYROID STIM HORMONE Collected: 04/29/2018 Status: F Source: [place] (TSH) 12:44 PM [facility] REPOSITORY TYPE CODE TESTS RESULT OUT OF RANGE REFERENCE UNITS LAB L501.9520 0.358-3.74 uIU/mL Normal TSH 3.48 Performed By: #### L500.4050, L501.6710, L501.9520 #### [facility] [address] [place], [address] Observed: 04/29/2018 Status: F Source: [place] CULTURE, URINE 12:44 PM [facility] REPOSITORY Urine Culture ORGANISM 1: Mixed Gram Positive Organisms [place] Count 80,000-100,000 MIX CULTURE Mixed contaminants. Submit a new specimen if indicated. Performed By: #### M100.0650 #### [facility] [address] [facility] [place], [address] URINALYSIS, COMPLETE Collected: 04/29/2018 Status: F Source: [place] 11:00 AM [facility] REPOSITORY Order Comment: How was Urine Obtained? CLEAN CATCH TYPE CODE TESTS RESULT OUT OF RANGE REFERENCE UNITS LAB L400.3000 Yellow COLOR Normal Yellow LAB L400.3050 Clear Normal CLARITY Clear LAB L400.3200 Normal mg/dl Normal GLUCOSE, UR Normal LAB L400.3300 Negative mg/dL Normal BILIRUBIN URINE Negative LAB L400.3400 Negative mg/dl High 15 KETONE UR LAB L400.3465 1.002-1.030 Normal SP.GR. DIPSTX 1.010 LAB L400.3550 5.0 - 8.0 pH UR Normal 5.0 LAB L400.3600 Negative mg/dl PROT Normal DIPSTX Negative LAB L400.3700 Normal mg/dl Normal UROBILI Normal LAB L400.3750 Negative Normal NITRITE UR Negative LAB L400.3780 Negative /ul High 25 OCCULT BLOOD-UR LAB L400.3800 Negative /ul LEUK Normal ESTERASE Negative LAB L400.4050 0-5 /hpf WBC 0 Normal SEEN LAB L400.4100 0-5 /hpf 0 Normal RBC-UA SEEN LAB L400.4150 5-10 /hpf SQUAM Normal EPI 0-5 SEEN LAB L400.4300 None Seen /hpf 0 Normal BACTERIA SEEN LAB L400.4350 <or=2+ /hpf 0 Normal MUCUS, URINE SEEN Performed By: #### L400.0001 #### [facility] [address] [place], [address] Observed: 04/29/2018 Status: F Source: LORENZO CULTURE, URINE 11:00 AM [facility] REPOSITORY Urine Culture ORGANISM 1: Mixed Gram Positive Organisms [place] Count 80,000-100,000 MIX CULTURE Mixed contaminants. Submit a new specimen if indicated. Performed By: #### M100.0650 #### [facility] [address] [place], [address] ALLERGIES ALLERGIES DATE TYPE / CODE NAME / CODE REACTION SEVERITY SOURCE 08/22/2018 Drug clavulanic Diarrhea Unknown [place] Allergy/416 acid/[id number](RX [place] 134064([facility] ED CT) Repository 08/22/2018 Drug adhesive/[id number] Rash Unknown [place] Allergy/416 5(RXNORM) [facility] 558618([facility] ED CT) Repository 08/22/2018 Drug amoxicillin/E91246 Diarrhea Unknown [place] Allergy/416 3675(RXNORM) [facility] 401293([facility] ED CT) Repository 08/22/2018 Drug latex/[id number](R Rash Unknown [place] Allergy/416 XNORM) [facility] 254541([facility] ED CT) Repository 05/08/2018 DRUG/546119 AMOXICILLIN-POT GI UPSET [facility] 003(SNOMED CLAVULANATE [facility] [place] CT) Repository 05/26/2009 DRUG LATEX RASH [facility] INGREDI/419 Main [place] 139471([facility] ED CT) ENCOUNTERS ENCOUNTERS ADMIT/DISCHARGE ACCOUNT ADMITTING ENCOUNTER LOCATION SOURCE NUMBER CLASS 09/19/2018 [id number] Megan Ambulatory [facility] ing:SDC Repository 09/12/2018 [id number] Ambulatory [facility] ing:OPBI Repository 09/06/2018/09/09/19 [id number] Ambulatory [place] 19 [facility] Repository 08/29/2018/08/29/20 [id number] Ambulatory [address] Repository 08/24/2018/08/26/20 [id number] [facility] ing:HW7Sgip: Repository PV299Nrv: 1 08/20/2018/08/20/[id number] ing:EN Repository 08/14/2018 [id number] Ambulatory [facility] Repository 08/06/2018/08/08/20 [id number] Ambulatory [address] Repository 07/16/2018/07/19/20 [id number] Ambulatory [address] Repository 07/09/2018 [id number] [facility] ing:RAD Repository 07/09/2018/07/09/20 [id number] MEGAN, Ambulatory [address] Repository 05/28/2018/05/29/20 [id number] Ambulatory [address] Repository 05/15/2018 [id number] [facility] ing:CT Repository 05/03/2018/05/07/20 [id number] Ambulatory [address] Repository 04/29/2018 [id number] [facility] ing:LABSPEC Repository 04/29/2018 [id number] [facility] ing:MTRAD Repository PAYERS PAYERS ENCOUNTER GUARANTOR PAYER SUBSCRIBER SOURCE 09/19/2018 OLIVIA TURNER777 Primary SHADIA L Lorenzo [place], Insurance:HUMANA KEENERDOB: [facility] [address]Yjp: MEDICARE [facility] [id number] Hospital Number: Repository () [id number] Date:4809-17-17[address] [address]LZ: 09/19/2018 Secondary NOT GIVENUNK [place] Insurance:SELF PAY [facility] Number: Effective Repository Date:2018-08-07 09/12/2018 OLIVIA TURNER777 Primary SHADIA L [place] FILOMENA WSTER, Insurance:HUMANA KEENERDOB: [facility] [address]Kqo: MEDICARE [facility] [id number] Hospital Number: Repository () [id number] Date:0856-90-94UC [address] [place] [address]OI: 09/12/2018 Secondary NOT GIVENUNK [place] Insurance:SELF PAY [facility] Number: Effective Repository Date:2018 08/24/2018 OLIVIA Juarez [id number] Primary SHADIA L Lorenzo [place], Insurance:HUMANA KEENERDOB: [place] [address]Ndx: MEDICARE [facility] [id number] Hospital Number: Repository () [id number] Date:2509-38-26IF [address] [address]FQ: 08/24/2018 Secondary NOT GIVENUNK [place] Insurance:SELF PAY [facility] Number: Effective Repository Date:2018-08-22 08/20/2018 OLIVIA Juarez [id number] Primary SHADIA L [facility] Insurance:HUMANA KEENERDOB: [facility] [place] [address]Zyj: MEDICARE PPOPolicy [id number] Hospital Number: Repository () [id number] Date:8378-29-04PN [address] [address]RS: 08/20/2018 Secondary NOT GIVENUNK [place] Insurance:SELF PAY [facility] Number: Effective Repository Date:2018-08-07 08/14/2018 OLIVIA TURNER777 Primary SHADIA L [place], Insurance:HUMANA KEENERDOB: [facility] [place] [address]Cca: MEDICARE PPOPolicy [id number] Hospital Number: Repository () [id number] Date:4924-95-32KI [address] [address]WG: 08/14/2018 Secondary NOT GIVENUNK [place] Insurance:SELF PAY [facility] Number: Effective Repository Date:2018-08-14 07/09/2018 OLIVIA Juaerz [id number] Primary SHADIA L [place], Insurance:HUMANA KEENERDOB: [facility] [place] [address]Vnd: MEDICARE PPOPolicy [id number] Hospital Number: Repository () [id number] Date:9690-00-21YX [address] [place] [address]BD: 07/09/2018 Secondary NOT GIVENUNK [place] Insurance:SELF PAY [facility] Number: Effective Repository Date:2018-07-09 05/15/2018 Olivia Juarez [id number] Primary [facility]ADIA L [place] [facility]HUMANA KEENERDOB: [facility] [place] [address]Haa: MEDICARE PPOPolicy [id number] Hospital Number: Repository () [id number] Date:6345-29-49PD [address] [place] [address]BK: 05/15/2018 Secondary NOT GIVENUNK [place] Insurance:SELF PAY [facility] Number: Effective Repository Date:2018-05-14 04/29/2018 Olivia Turner777 Primary SHADIA L [place] [facility] Insurance:HUMANA KEENERDOB: [facility] [place] [address]Jiy: MEDICARE PPOPolicy [id number] Hospital Number: Repository () [id number] Date:1453-08-67MT [address] [place] [phone]: 04/29/2018 Secondary NOT GIVENUNK [place] Insurance:SELF PAY [facility] Number: Effective Repository Date:2018-04-29 04/29/2018 Olivia Turner777 Primary SHADIA L [place] [facility] Insurance:HUMANA KEENERDOB: [facility] [place] [address]Fjp: MEDICARE PPOPolicy [id number] Hospital Number: Repository () [id number] Date:8776-18-44TN [address] [place] [address]ZX: 04/29/2018 Secondary NOT GIVENUNK [place] Insurance[facility]LF [facility]Y [facility] Repository Date:2018-04-29
== END 2018-08-20 16:19 | disposition home or self-care (01) ==
PROVIDERS: Family Provider Family Medicine; PCP Family Medicine; Referring Provider Surgery; Visit Provider Surgery
PROC: 0DJD8ZZ Inspection of Lower Intestinal Tract, Via Natural or Artificial Opening Endoscopic (ICD-10-PCS; CPT 45378; principal; 2018-08-20 12:55)
DX: K31.7 Polyp of stomach and duodenum (principal); K29.50 Unspecified chronic gastritis without bleeding; K22.6 Gastro-esophageal laceration-hemorrhage syndrome; K57.30 Diverticulosis of large intestine without perforation or abscess without bleeding; K56.699 Other intestinal obstruction unspecified as to partial versus complete obstruction; M81.0 Age-related osteoporosis without current pathological fracture; Z79.82 Long term (current) use of aspirin; Z79.899 Other long term (current) drug therapy
CPT/HCPCS: 43239; 45378; 71045; 74018; 88305; 88342; J7120; J2405

== ENCOUNTER 2018-08-22 22:52 | Inpatient (IN) | payer MEDICARE, SELFPAY ==
[2018-08-20 12:28] VITALS: BMI 25.4
[2018-08-22 22:52] VITALS: BP 162/86; PULSE 99; RESP 18; TEMP 37.4; O2SAT 95; BMI 25.4
[2018-08-22 23:10] VITALS: BP 162/69; PULSE 90; PULSE 93; RESP 17; TEMP 37.1; O2SAT 93; O2SAT 94
--- NOTE | 2018-08-22 23:29 | CT_ITS ---
STUDY: CT ABDOMEN AND PELVIS WITHOUT CONTRAST REASON FOR EXAM: Female, 78 years old. Left lower quadrant abdominal pain and nausea. RADIATION DOSAGE (If Supplied By Facility): CTDIvol = ( 6.24 ) mGy, DLP = ( 286.73 ) mGycm TECHNIQUE: Transaxial images were obtained from the dome of the diaphragm to the symphysis pubis without oral contrast, and without intravenous contrast. Sagittal and coronal images were reconstructed. Individualized dose optimization techniques were used for this CT. COMPARISON: None. FINDINGS: There is patchy left basilar airspace consolidation and atelectasis. The presumably right basilar dependent atelectasis. There is also subsegmental atelectasis within the right middle lobe and right lower lobe. The visualized portions of the heart are within normal limits. Normal liver. Normal gallbladder and extrahepatic biliary system. Normal spleen. Normal pancreas. There appears to be enlargement of the left adrenal gland with what may represent a nodule measuring up to 2 cm in greatest dimension. The right adrenal gland has a normal appearance. There appears to be a small cyst arising from the lateral cortex of the right kidney measuring approximately 1 cm in greatest dimension. There is also prominence of the left renal collecting system possibly related to extrarenal pelvis. There is no definite evidence for hydronephrosis, hydroureter or radiopaque ureteral calculi. Multiple pelvic calcifications are probably phleboliths. There is a small hiatal hernia. There are multiple foci of pneumoperitoneum adjacent to the liver and in the left upper quadrant probably related to perforated viscus. There is no evidence for dilated bowel or ascites. There are acute inflammatory changes in the left lower quadrant adjacent to the proximal sigmoid colon and distal descending colon where there are multiple diverticula. There may be some associated diverticulitis in this area. Appears to be perforation adjacent to the colon in this area with additional pneumoperitoneum. There is non-visualization of the appendix. There is patchy atherosclerotic calcification of the abdominal aorta, without a demonstrated aneurysm. Normal inferior vena cava. Normal retroperitoneum. Normal urinary bladder. There is atrophy of the uterus. There is a small umbilical hernia containing fat. The bones appear osteopenic. There is degenerative disc disease at L5-S1. CT/Abdomen/Pelvis without Cont IMPRESSION: 1. Pneumoperitoneum probably related to perforation located at the proximal sigmoid and distal descending colon. 2. There is acute inflammation in the left lower quadrant probably related to sequela of acute diverticulitis. 3. Bilateral basilar dependent and segmental atelectasis. N.B. : The above information has been verbally conveyed by Leena Pike MD to Doroteo Grider on 08/23/2018 00:27:48 (ET). Electronically Signed: Leena Pike MD at 0:43 EST , Service support ,
[2018-08-22] MEDS: Ondansetron 4 MG/2 ML Vial IV (23:41)
[2018-08-22] MEDS: Morphine 4 MG/ML Syringe IV (23:43)
[2018-08-23] VITALS (10 sets, daily range): BP systolic 97–128; BP diastolic 47–59; PULSE 85–102; RESP 14–20; TEMP 37.2–38.7; O2SAT 91–100; BMI 26.1
[2018-08-23 00:08] LABS: Bacteria 0 SEEN /hpf (None Seen); Mucous, Urine 0 SEEN /hpf (<or=2+)
[2018-08-23 00:09] LABS: Color, Urine Yellow (Yellow); Glucose, Dipstick 50 mg/dl (Normal); Ketone-Dipstick Negative (Negative); Leukocyte Esterase-Dipstick 25 /ul (Negative); Nitrite-Dipstick Negative (Negative); Occult Blood-Urine 150 /ul (Negative); Protein-Dipstick 30 mg/dl (Negative); Urine Bilirubin Dipstick Negative (Negative); Urine Clarity Clear (Clear); Urine Urobilinogen 1 mg/dl (Normal)
[2018-08-23 00:15] LABS: Red Blood Cells-Urine 5-10 SEEN /hpf (0-5); White Blood Cells 0-5 SEEN /hpf (0-5)
[2018-08-23 00:16] LABS: Squamous Epithelial Cells - UA 10-25 SEEN /hpf (5-10)
[2018-08-23 00:19] LABS: Absolute Lymphocyte Count 1.16 X10^3/ul (0.83-4.51); Absolute Neutrophil Count 10.6 X10^3/uL (2.0-7.7); Basophil# 0.02 X10^3/uL; Basophil% 0.2 % (0-1); Eosinophil# 0.06 X10^3/uL; Eosinophils% 0.5 % (0-5); Hematocrit 44.2 % (37-47); Hemoglobin 14.8 g/dl (12.0-15.0); Lymphocyte # 1.16 X10^3/ul (4.0); Lymphocyte % 9.1 % (19-41); Mean Corp Hgb Conc 33.5 g/gl (32-36); Mean Corpuscular Hgb 30.5 pg (27.0-32.0); Mean Corpuscular Volume 90.9 fL (81-99); Mean Platelet Vol. 11.7 fl (6.2-12.0); Monocyte# 0.92 X10^3/uL; Monocyte% 7.2 % (0-10); Neutrophil # 10.63 X10^3/uL (2.7-7.7); Neutrophil % 82.9 % (47-70); Platelet Count 218 K/mm3 (150-450); RBC Distribution Width CV 14.2 % (11.6-14.6); RBC Distribution Width SD 47.2 fl (35.1-43.9); Red Blood Count 4.86 M/mm3 (4.2-5.4); White Blood Count 12.8 K/mm3 (4.4-11.0)
[2018-08-23 00:22] LABS: POSITIVE COUNT NO; POSITIVE DIFFERENTIAL NO; POSITIVE MORPHOLOGY NO
[2018-08-23 00:25] LABS: ALB/GLOB Ratio 0.9 RATIO (0.9-2.4); AST(SGOT) 18 U/L (15-37); Alanine Aminotransfer ALT/SGPT 18 U/L (13-56); Albumin, Serum 3.3 g/dL (3.2-5.0); Alkaline Phosphatase 68 U/L (45-117); Anion Gap 10 (5-15); BUN 11 mg/dL (7-18); BUN/Creat Ratio 11.3 RATIO (10-20); Calcium,Total 8.6 mg/dL (8.5-10.1); Chloride 106 mmol/L (98-107); Creatinine, Serum 0.97 mg/dL (0.55-1.02); EST Glomerular Filtration Rate 59 mL/min (>60); Est Glom Filt Rate - Afr Amer 71 mL/min (>60); Estimated Creatinine Clearance 34.33 ml/min; Globulin 3.7 g/dL (2.2-4.2); Glucose 155 mg/dL (74-106); Lipase 115 U/L (73-393); Potassium 3.4 mmol/L (3.5-5.1); Sodium Level 140 mmol/L (136-145)
--- NOTE | 2018-08-23 00:42 | ED.VISSUMM ---
- ER Visit Summary Date of Service: 08/23/18 Chief Complaint: Abdominal pain History of Present Illness: The patient is a 78 F who presents with abdominal pain that began today. Patient states the pain is over the left lower quadrant. Patient describes the pain as aching. Patient states the pain is worse with movement and with palpation. Patient admits to some nausea but denies any vomiting. Patient admits to a fever of 101 at home. Patient denies any diarrhea, melena, or hematochezia. Patient denies any dysuria or urgency. Patient had a recent colonoscopy and endoscopy done by Dr. Guzman. Physical Examination: Vital signs are stable. Patient is afebrile. Patient is in no acute distress. Oral mucosa is pink and moist. Neck is supple. Trachea is midline. There is no JVD noted. Heart was regular rate and rhythm. Lungs are clear and equal bilateral. Abdomen is soft. There is tenderness over the left lower quadrant. There is no rebound or guarding noted. Cranial nerves II through XII are intact. There are no focal motor or sensory deficits noted. The remaining physical exam is within normal limits. Test Results: CBC showed a mild leukocytosis of 12.8. Metabolic profile showed a mild hypokalemia of 3.4. Urinalysis does not show any evidence of urinary tract infection. CT scan of the abdomen and pelvis shows some pneumoperitoneum. Emergency Department Course and Treatment: Patient was given Cipro and Flagyl here. Case was discussed with Dr. Guzman. He will admit the patient to his service for observation. Patient and family understood and were agreeable with the plan. All questions were answered. Disposition: Admit to hospital Impression: 1. Abdominal pain 2. Pneumoperitoneum This note was generated with [employer] dictation software. It may contain incorrect words, spelling, and punctuation that were not noted in review of the chart prior to signing ED Disposition - Plan for ED Patient: Disposition: Acute Care Hospital [facility] Chief Complaint: Abd Pain Diagnosis: Abdominal pain, Pneumoperitoneum Referrals: Doroteo Dominguez MD [Primary Care Provider] -
[2018-08-23] MEDS: Ciprofloxacin 400 MG/200 ML BAG 200 MG IV ×3 (01:04→22:07)
[2018-08-23] MEDS: 0.9% NaCl Peripheral Flush Adult/Peds IV (08:27)
[2018-08-23] MEDS: oxyCODONE 5 MG Tablet PO ×3 (08:27→23:28)
[2018-08-23] MEDS: proCHLORPERazine 10 MG/2 ML Vial 5 MG IV ×2 (08:28→23:29)
[2018-08-23] MEDS: Acetaminophen 325 MG Tablet PO (08:28)
--- NOTE | 2018-08-23 10:59 | NURSING ---
per cps, pt sating 97% on 2l, o2 removed. started on I.S
--- NOTE | 2018-08-23 16:56 | PCM.HP.STD ---
History of Present Illness Date of Admission: 08/23/18 Chief Complaint: abdominal pain The patient is a 78 year old F with a scant amount of free air and left lower quadrant pain consistent with recurrent diverticulitis following colonoscopy this past Sunday.. Shadia notes a 6-month history of abdominal complaints. ?She notes a pressure sensation and discomfort in her left lower abdomen intermittently, does not radiate, varies in intensity-states currently 2/10. ?Notes pressure with having a bowel movement and feels that she passes air when she urinates. ?Notes recently when wiping after urination she sees stool on the paper. ?Denies frequent UTIs. ?She does note a recent history of low-grade fever-100.5. ?Was evaluated by her PCP who ordered UA and bloodwork as well as CT scan. ?[facility] positive for occult blood as well as mixed gram positive organisms. ?CBC was within normal limits. ? Shadia has undergone prior endoscopy, thinks this was in 2007, by Dr. Lee. ?She denies a history of polyps. ??Denies family history of colon cancer. ??Patient states that in the past she had episodes suspected to be diverticulitis not formally diagnosed. ?She had previously had ?episodes of lower abdominal pain and underwent lysis of adhesions in conjunction with [employer] procedure in 2014. ? ? We obtained a CT scan of the abdomen and pelvis. ?This demonstated mild diverticulitis in the descending colon/proximal sigmoid. There was no colon approximate to the bladder, no bladder thickening and no air in the bladder ? ?I performed lower endoscopy on July 09, 2018. ?The patient was found to have significant tortuosity and diverticulosis which may be concerned for blindly try and advance the scope through the segment through the risk of injury. ?Endoscopy was aborted. ?Endoscopically there were no visualized area suspicious for malignancy. ? A follow-up barium enema was obtained. ?This demonstrated diverticulosis in the left hemicolon. ?There was also noted to be a focal area of narrowing with overhanging edges in the midportion of the sigmoid colon. ?It was listed as a neoplastic process should be ruled out and that there was no evidence obstruction. ?Reviewing the barium enema in concert with the CT scan I do see what Dr. Haywood is noting. ?I agree this is most likely a diverticular narrowing segment but also agree that I cannot rule out a malignancy in this area. ? We planned a repeat colonoscopy and if I am unable to get past the area of concern and prove this is nonsignificant then would plan for laparoscopic sigmoid resection the following day. I performed colonoscopy on August 20, and with pressure was able to get beyond the area of concern. Clinically I felt the area of pressure was at approximately 20-30 cm and felt this was lower than the area at the descending colon sigmoid junction. The colon remained completely distended following the procedure. The patient had no abdominal pain. A postprocedure KUB was obtained and a chest x-ray was obtained which was initially interpreted as no free air but later reread with a question of extraluminal air versus a distended stomach. Incidentally, the patient was noted to have what seemed to be a small amount of blood in the base of the cecum so upper endoscopy was performed which demonstrated some mild gastritis but no source of bleeding. The patient was contacted and had no complaints of abdominal pain at that time. She was instructed to contact me if she was having any worsening symptoms. 48 hours later, the patient noted left lower quadrant pain. She presented emergency department and underwent a follow-up CT scan which demonstrated some extraluminal free air in the upper abdomen and what appeared to be again inflammation consistent with diverticulitis at the proximal sigmoid colon area. The patient's white blood cell count was 12. Due to a penicillin allergy she was admitted with plans for IV antibiotics on clear liquids with low residue diet and to monitor the patient. Past Medical History Past Medical History (Chronic Problems): Chronic Problems Recurrent cold sores (Chronic) HLD (hyperlipidemia) (Chronic) Allergies latex Allergy (Verified 08/22/18 22:57) Rash adhesive Adverse Reaction (Verified 08/22/18 22:57) Rash amoxicillin [From Augmentin] Adverse Reaction (Verified 08/22/18 22:57) Diarrhea clavulanic acid [From Augmentin] Adverse Reaction (Verified 08/22/18 22:57) Diarrhea Home Medications: Ambulatory Orders Medication Instructions Recorded Multivitamins,Therapeutic 1 tablet PO DAILY 02/16/15 [Multivitamin] Aspirin [Aspirin, Baby] 81 mg PO DAILY@0800 08/14/18 Cholecalciferol (VIT D3) [Vitamin 1,000 unit PO DAILY 08/14/18 D] Magnesium 250 mg PO DAILY 08/14/18 Surgical History: appendectomy, - - Tubal Ligation, surgery on both feet Psychiatric History: No pertinent psych hx [employer] History: No pertinent [employer] history Smoking Status: Never smoker - *Family History Maternal History Items: Stroke - dwight had a stroke at 79 or 80 YOA, - Paternal History Items: No pertinent history Review of Systems Constitutional: Denies: Chills, Fever, Weight Change HEENT: Denies: Head Aches, Sinus Congestion, Sinus Drainage Cardiovascular: Denies: Chest Pain, Palpitations Respiratory: Denies: Cough, Shortness of breath at rest, Sputum production Gastrointestinal: Reports: Abdominal Pain, Nausea. Denies: Vomiting Genitourinary: Denies: Dysuria Musculoskeletal: Denies: Joint Pain, Joint Tenderness Skin: Denies: Rash, Wounds Neurological: Denies: Numbness, Tingling, Focal weakness Psychiatric: Denies: Anxiety, Depression, Homicidal Ideations, Suicidal Ideations Hematologic/ Lymphatic: Denies: Easy Bruising, Easy Bleeding VTE Information - Inpt Only VTE Present on Admission: No Patient Problems: Active and Suspected Problems Abdominal pain (Acute) Pneumoperitoneum (Acute) - Physical Exam General: Alert, Oriented x3, Cooperative Lungs: Clear to auscultation, Normal air movement Cardiovascular: Regular rate, No murmurs Abdomen: Bowel Sounds Present, Soft, Tender - in the left lower quadrant without diffuse peritoneal signs Vital Signs Temp Pulse Resp BP Pulse Ox 99.4 F H 85 14 101/50 L 94 08/23/18 14:52 08/23/18 14:52 08/23/18 14:52 08/23/18 14:52 08/23/18 14:52 Oxygen Flow Rate (L/min) 2 Oxygen Delivery Method Room Air Weight: 60.6 kg Body Mass Index (BMI) 26.1 Intake and Output for Last 24 Hours 08/21/18 08/22/18 08/23/18 23:59 23:59 23:59 Intake Total 729 / 729 Output Total 700 / 700 Balance Laboratory Tests Past 24 Hrs 08/22/18 08/22/18 08/22/18 23:00 23:00 23:59 WBC 12.8 H RBC 4.86 Hgb 14.8 Hct 44.2 MCV 90.9 MCH 30.5 MCHC 33.5 RDW 14.2 RDW Differential 47.2 H Plt Count 218 MPV 11.7 Immature Gran % (Auto) 0.100 Neut % (Auto) 82.9 H Lymph % (Auto) 9.1 L [place] % (Auto) 7.2 Eos % (Auto) 0.5 Baso % (Auto) 0.2 Absolute Neuts (auto) 10.6 H Absolute Lymphs (auto) 1.16 Total Counted Not Reportable Sodium 140 Potassium 3.4 L Chloride 106 Carbon Dioxide 24.0 Anion Gap 10 BUN 11 Creatinine 0.97 Estim Creat Clear Calc 34.33 Est GFR (MDRD) Af Amer 71 Est GFR (MDRD) Non-Af 59 L BUN/Creatinine Ratio 11.3 Glucose 155 H Calcium 8.6 Total Bilirubin 0.40 AST 18 ALT 18 Alkaline Phosphatase 68 Total Protein 7.0 Albumin 3.3 Globulin 3.7 Albumin/Globulin Ratio 0.9 Lipase 115 Urine Color Yellow Urine Clarity Clear Urine pH 7.0 Ur Specific [place] 1.010 Urine Protein 30 H Urine Glucose (UA) 50 H Urine Ketones Negative Urine Occult Blood 150 H Urine Nitrite Negative Urine Bilirubin Negative Urine Urobilinogen 1 H Ur Leukocyte Esterase 25 H Urine RBC 5-10 SEEN Urine WBC 0-5 SEEN Ur Squamous Epith Cells 10-25 SEEN Urine Bacteria 0 SEEN Urine Mucus 0 SEEN Assessment/Plan All Active Problems Abdominal pain (Acute) Pneumoperitoneum (Acute) Renal insufficiency (Acute) Acute onset of vertigo with vomiting and inability to stand (Acute) Acute ataxia (Acute) patient with recurrent diverticulitis, now with diverticulitis questionable secondary to iatrogenic versus post colonoscopic diverticulitis with small perforation and small to moderate extraluminal air. We'll plan for clear liquid diet since patient has been tolerating a diet but otherwise no solid food. We will add Cipro and Flagyl to cover diverticulitis given her penicillin allergy. We will add Protonix given the findings of gastritis and questionable margin of blood on previous endoscopy. We will encourage ambulation and use of incentive spirometer. If patient's symptoms do not worsen would plan for Lovenox for DVT prophylaxis. Hopefully patient will respond to IV antibiotics and then we'll plan for elective resection now approximately [address] If patient worsens may need urgent sigmoid colectomy.
[2018-08-24 02:00] VITALS: BP 108/52; PULSE 95; RESP 16; TEMP 37.7; O2SAT 94
[2018-08-24] MEDS: Acetaminophen 325 MG Tablet PO ×2 (02:02→13:30)
[2018-08-24] MEDS: oxyCODONE 5 MG Tablet PO ×3 (04:07→16:54)
[2018-08-24 07:15] LABS: Absolute Lymphocyte Count 0.74 X10^3/ul (0.83-4.51); Absolute Neutrophil Count 9.8 X10^3/uL (2.0-7.7); Basophil# 0.01 X10^3/uL; Basophil% 0.1 % (0-1); Eosinophil# 0.01 X10^3/uL; Eosinophils% 0.1 % (0-5); Hemoglobin 12.5 g/dl (12.0-15.0); Lymphocyte # 0.74 X10^3/ul (4.0); Lymphocyte % 6.6 % (19-41); Mean Corp Hgb Conc 32.9 g/gl (32-36); Mean Corpuscular Volume 91.1 fL (81-99); Mean Platelet Vol. 11.6 fl (6.2-12.0); Monocyte# 0.65 X10^3/uL; Monocyte% 5.8 % (0-10); Neutrophil # 9.77 X10^3/uL (2.7-7.7); Neutrophil % 87.2 % (47-70); POSITIVE COUNT NO; POSITIVE DIFFERENTIAL NO; POSITIVE MORPHOLOGY NO; Platelet Count 173 K/mm3 (150-450); RBC Distribution Width CV 14.6 % (11.6-14.6); RBC Distribution Width SD 48.6 fl (35.1-43.9); Red Blood Count 4.17 M/mm3 (4.2-5.4); White Blood Count 11.2 K/mm3 (4.4-11.0)
[2018-08-24 08:00] VITALS: BP 115/55; PULSE 102; PULSE 64; RESP 16; TEMP 37.5; O2SAT 95
[2018-08-24 08:00] LABS: Anion Gap 7 (5-15); BUN 7 mg/dL (7-18); BUN/Creat Ratio 7.6 RATIO (10-20); Calcium,Total 7.7 mg/dL (8.5-10.1); Chloride 106 mmol/L (98-107); Creatinine, Serum 0.92 mg/dL (0.55-1.02); EST Glomerular Filtration Rate 62 mL/min (>60); Est Glom Filt Rate - Afr Amer 75 mL/min (>60); Glucose 130 mg/dL (74-106); Potassium 3.6 mmol/L (3.5-5.1); Sodium Level 139 mmol/L (136-145)
[2018-08-24] MEDS: Ciprofloxacin 400 MG/200 ML BAG 200 MG IV ×2 (10:02→22:40)
[2018-08-24] MEDS: Lactated Ringers 1,000 ML 60 ML IV (10:05)
--- NOTE | 2018-08-24 10:08 | PN.SURG_ITS ---
Patient Problems: Active and Suspected Problems Abdominal pain (Acute) Pneumoperitoneum (Acute) Objective: still having left lower quadrant pain, scant flatus - Physical Exam General: Alert, Oriented x3, Cooperative Lungs: Clear to auscultation, Normal air movement Cardiovascular: Regular rate, No murmurs Abdomen: Bowel Sounds Present, Soft, Tender - left lower quadrant without diffuse peritoneal signs Vital Signs Temp Pulse Resp BP Pulse Ox 100 F H 95 16 108/52 L 94 08/24/18 02:00 08/24/18 02:00 08/24/18 02:00 08/24/18 02:00 08/24/18 02:00 Oxygen Flow Rate (L/min) 2 Oxygen Delivery Method Nasal Cannula Weight: 60.6 kg Body Mass Index (BMI) 26.1 Intake and Output for Last 24 Hours 08/22/18 08/23/18 08/24/18 23:59 23:59 23:59 Intake Total 729 / 729 1284 / 1284 Output Total 700 / 700 400 / 400 Balance 884 / 884 Laboratory Tests Past 24 Hrs 08/24/18 08/24/18 06:23 06:23 WBC 11.2 H RBC 4.17 L Hgb 12.5 Hct 38.0 MCV 91.1 MCH 30.0 MCHC 32.9 RDW 14.6 RDW Differential 48.6 H Plt Count 173 MPV 11.6 Immature Gran % (Auto) 0.200 Neut % (Auto) 87.2 H Lymph % (Auto) 6.6 L [place] % (Auto) 5.8 Eos % (Auto) 0.1 Baso % (Auto) 0.1 Absolute Neuts (auto) 9.8 H Absolute Lymphs (auto) 0.74 L Total Counted Not Reportable Sodium 139 Potassium 3.6 Chloride 106 Carbon Dioxide 26.0 Anion Gap 7 BUN 7 Creatinine 0.92 Estim Creat Clear Calc 36.20 Est GFR (MDRD) Af Amer 75 Est GFR (MDRD) Non-Af 62 BUN/Creatinine Ratio 7.6 L Glucose 130 H Calcium 7.7 L Medical Necessity - Tobacco Use Smoking Status: Never smoker Assessment/Plan All Active Problems Abdominal pain (Acute) Pneumoperitoneum (Acute) Renal insufficiency (Acute) Acute onset of vertigo with vomiting and inability to stand (Acute) Acute ataxia (Acute) patient with recurrent diverticulitis, now with diverticulitis questionable secondary to iatrogenic versus post colonoscopic diverticulitis with small perforation and small to moderate extraluminal air. We'll plan for clear liquid diet since patient has been tolerating a diet but otherwise no solid food. We will add Cipro and Flagyl to cover diverticulitis given her penicillin allergy. We will add Protonix given the findings of gastritis and questionable margin of blood on previous endoscopy. We will encourage ambulation and use of incentive spirometer. Hopefully patient will respond to IV antibiotics and then we'll plan for elective resection now approximately [address] If patient worsens may need urgent sigmoid colectomy.
[2018-08-24 13:48] VITALS: BP 103/57; PULSE 103; RESP 16; TEMP 38.4; O2SAT 92
[2018-08-24 14:00] VITALS: PULSE 59; RESP 14; O2SAT 92
[2018-08-24] MEDS: proCHLORPERazine 10 MG/2 ML Vial 5 MG IV (14:29)
[2018-08-24 16:00] VITALS: BP 107/55; PULSE 94; RESP 16; TEMP 37.2; O2SAT 92
[2018-08-25] MEDS: oxyCODONE 5 MG Tablet PO ×2 (00:46→09:04)
[2018-08-25 02:25] VITALS: BP 107/62; PULSE 91; RESP 18; TEMP 37.1; O2SAT 94
[2018-08-25] MEDS: Lactated Ringers 1,000 ML 60 ML IV (04:43)
[2018-08-25 08:25] VITALS: BP 108/65; PULSE 87; RESP 18; TEMP 37.4; O2SAT 93
[2018-08-25] MEDS: Lactated Ringers 1,000 ML 40 ML IV (09:02)
[2018-08-25] MEDS: Ciprofloxacin 400 MG/200 ML BAG 200 MG IV ×2 (09:07→22:50)
--- NOTE | 2018-08-25 09:23 | PCM.PN.SRG ---
Patient Problems: Active and Suspected Problems Abdominal pain (Acute) Pneumoperitoneum (Acute) Subjective: less pain, passing flatus - Physical Exam General: Alert, Oriented x3, Cooperative Lungs: Clear to auscultation, Normal air movement Cardiovascular: Regular rate, No murmurs Abdomen: Bowel Sounds Present, Soft, Tender - LLQ Vital Signs Temp Pulse Resp BP Pulse Ox 99.4 F H 87 18 108/65 93 08/25/18 08:25 08/25/18 08:25 08/25/18 08:25 08/25/18 08:25 08/25/18 08:25 Oxygen Flow Rate (L/min) 2 Oxygen Delivery Method Room Air Weight: 60.6 kg Body Mass Index (BMI) 26.1 Intake and Output for Last 24 Hours 08/23/18 08/24/18 08/25/18 23:59 23:59 23:59 Intake Total 729 / 729 3224 / 3224 1596 / 1596 Output Total 700 / 700 1100 / 1100 550 / 550 Balance 2124 / 2124 1046 / 1046 Medical Necessity - Tobacco Use Smoking Status: Never smoker Assessment/Plan All Active Problems Abdominal pain (Acute) Pneumoperitoneum (Acute) Renal insufficiency (Acute) Acute onset of vertigo with vomiting and inability to stand (Acute) Acute ataxia (Acute) patient with recurrent diverticulitis, now with diverticulitis questionable secondary to iatrogenic versus post colonoscopic diverticulitis with small perforation and small to moderate extraluminal air. We'll plan for clear liquid diet since patient has been tolerating a diet but otherwise no solid food. We will add Cipro and Flagyl to cover diverticulitis given her penicillin allergy. We will add Protonix given the findings of gastritis and questionable margin of blood on previous endoscopy. We will encourage ambulation and use of incentive spirometer. Hopefully patient will respond to IV antibiotics and then we'll plan for elective resection now approximately [address] If WBC count normal and afebrile tomorrow, will plan to discharge on oral cipro and flagyl
[2018-08-25] MEDS: 0.9% NaCl Peripheral Flush Adult/Peds IV ×2 (09:28→14:45)
[2018-08-25 18:04] VITALS: BP 121/60; PULSE 89; RESP 16; TEMP 37.6; O2SAT 92
[2018-08-25 20:30] VITALS: BP 116/55; PULSE 86; RESP 16; TEMP 37.7; O2SAT 98
[2018-08-25] MEDS: proCHLORPERazine 10 MG/2 ML Vial 5 MG IV (21:15)
[2018-08-26 02:30] VITALS: BP 125/64; PULSE 92; RESP 16; TEMP 37.1; O2SAT 94
[2018-08-26] MEDS: Lactated Ringers 1,000 ML 40 ML IV (05:57)
[2018-08-26 06:36] LABS: Absolute Lymphocyte Count 1.41 X10^3/ul (0.83-4.51); Absolute Neutrophil Count 6.7 X10^3/uL (2.0-7.7); Basophil# 0.02 X10^3/uL; Basophil% 0.2 % (0-1); Eosinophil# 0.11 X10^3/uL; Eosinophils% 1.2 % (0-5); Hematocrit 37.1 % (37-47); Hemoglobin 12.4 g/dl (12.0-15.0); Lymphocyte # 1.41 X10^3/ul (4.0); Lymphocyte % 15.3 % (19-41); Mean Corp Hgb Conc 33.4 g/gl (32-36); Mean Corpuscular Hgb 30.4 pg (27.0-32.0); Mean Corpuscular Volume 90.9 fL (81-99); Monocyte# 0.95 X10^3/uL; Monocyte% 10.3 % (0-10); Neutrophil # 6.66 X10^3/uL (2.7-7.7); Neutrophil % 72.6 % (47-70); Platelet Count 201 K/mm3 (150-450); RBC Distribution Width CV 14.3 % (11.6-14.6); RBC Distribution Width SD 46.7 fl (35.1-43.9); Red Blood Count 4.08 M/mm3 (4.2-5.4); White Blood Count 9.2 K/mm3 (4.4-11.0)
[2018-08-26 06:41] LABS: POSITIVE COUNT NO; POSITIVE DIFFERENTIAL NO; POSITIVE MORPHOLOGY NO
[2018-08-26 06:42] LABS: Anion Gap 9 (5-15); BUN 7 mg/dL (7-18); BUN/Creat Ratio 10.1 RATIO (10-20); Calcium,Total 7.8 mg/dL (8.5-10.1); Chloride 106 mmol/L (98-107); Creatinine, Serum 0.69 mg/dL (0.55-1.02); EST Glomerular Filtration Rate 87 mL/min (>60); Est Glom Filt Rate - Afr Amer 105 mL/min (>60); Glucose 103 mg/dL (74-106); Sodium Level 139 mmol/L (136-145)
--- NOTE | 2018-08-26 07:50 | PCM.DC ---
- Discharge Diagnoses Current Active Problems: Current Active and Chronic Problems Abdominal pain (Acute) Pneumoperitoneum (Acute) You will use the following diet at home:: Other - low residue Discharge Activity: No Restrictions May shower in (days): 0 Call your doctor if you observe: Fever of 101 or Higher, - - no flatus Allergies/Adverse Reactions: Allergies latex Allergy (Verified 08/22/18 22:57) Rash adhesive Adverse Reaction (Verified 08/22/18 22:57) Rash amoxicillin [From Augmentin] Adverse Reaction (Verified 08/22/18 22:57) Diarrhea clavulanic acid [From Augmentin] Adverse Reaction (Verified 08/22/18 22:57) Diarrhea Medications to take at Discharge Aspirin [Aspirin, Baby] 81 mg PO DAILY@0800 08/14/18 Cholecalciferol (VIT D3) [Vitamin D3] 1,000 unit PO DAILY 08/14/18 Acetaminophen [Tylenol Tablet] 325 mg PO Q4H PRN PRN tablet 08/26/18 Ciprofloxacin [Cipro] 500 mg PO BID 10 Days #20 tab 08/26/18 Metronidazole [Flagyl] 500 mg PO TID #30 tab 08/26/18 The following prescriptions were given: Ciprofloxacin [Cipro] 500 mg PO BID 10 Days #20 tab Metronidazole [Flagyl] 500 mg PO TID #30 tab Primary Care Physician: Doroteo Dominguez MD [Primary Care Provider] - Test Results: Test results from this visit will be discussed in further detail at your follow-up appointment, if applicable. Please Follow Up With: Yoel Guzman MD When:
--- NOTE | 2018-08-26 07:53 | DCINST_ITS ---
- Discharge Diagnoses Current Active Problems: Current Active and Chronic Problems Abdominal pain (Acute) Pneumoperitoneum (Acute) You will use the following diet at home:: Other - low residue Discharge Activity: No Restrictions May shower in (days): 0 Call your doctor if you observe: Fever of 101 or Higher, - - no flatus Allergies/Adverse Reactions: Allergies latex Allergy (Verified 08/22/18 22:57) Rash adhesive Adverse Reaction (Verified 08/22/18 22:57) Rash amoxicillin [From Augmentin] Adverse Reaction (Verified 08/22/18 22:57) Diarrhea clavulanic acid [From Augmentin] Adverse Reaction (Verified 08/22/18 22:57) Diarrhea Medications to take at Discharge Aspirin [Aspirin, Baby] 81 mg PO DAILY@0800 08/14/18 Cholecalciferol (VIT D3) [Vitamin D3] 1,000 unit PO DAILY 08/14/18 Acetaminophen [Tylenol Tablet] 325 mg PO Q4H PRN PRN tablet 08/26/18 Ciprofloxacin [Cipro] 500 mg PO BID 10 Days #20 tab 08/26/18 Metronidazole [Flagyl] 500 mg PO TID #30 tab 08/26/18 The following prescriptions were given: Ciprofloxacin [Cipro] 500 mg PO BID 10 Days #20 tab Metronidazole [Flagyl] 500 mg PO TID #30 tab Primary Care Physician: Doroteo Dominguez MD [Primary Care Provider] - Test Results: Test results from this visit will be discussed in further detail at your follow- up appointment, if applicable. Please Follow Up With: Yoel Guzman MD When:
[2018-08-26 07:56] VITALS: BP 128/65; PULSE 82; RESP 16; TEMP 36.8; O2SAT 93
--- NOTE | 2018-08-26 09:01 | PCM.DC.SUM ---
Discharge Date and Diagnosis Date of Admission: 08/23/18 Date of Discharge: 08/26/18 - Primary Discharge Diagnosis diverticulitis with pneumoperitoneum - Secondary Discharge Diagnosis Chronic Problems Recurrent cold sores (Chronic) HLD (hyperlipidemia) (Chronic) Hospital Course and Treatment Imaging Results: Diagnostic Data Abdomen/Pelvis CT 08/22/18 23:29 IMPRESSION: 1. Pneumoperitoneum probably related to perforation located at the proximal sigmoid and distal descending colon. 2. There is acute inflammation in the left lower quadrant probably related to sequela of acute diverticulitis. 3. Bilateral basilar dependent and segmental atelectasis. N.B. : The above information has been verbally conveyed by Leena Pike MD to Doroteo Grider on 08/23/2018 00:27:48 (ET). Electronically Signed: Leena Pike MD at 0:43 EST , Service support , Operations: None Procedures: None Summary of Care Provided: he patient is a 78 year old F with a scant amount of free air and left lower quadrant pain consistent with recurrent diverticulitis following colonoscopy this past Sunday.. Shadia notes a 6-month history of abdominal complaints. ?She notes a pressure sensation and discomfort in her left lower abdomen intermittently, does not radiate, varies in intensity-states currently 2/10. ?Notes pressure with having a bowel movement and feels that she passes air when she urinates. ?Notes recently when wiping after urination she sees stool on the paper. ?Denies frequent UTIs. ?She does note a recent history of low-grade fever-100.5. ?Was evaluated by her PCP who ordered UA and bloodwork as well as CT scan. ?Urine results reviewed in [facility], positive for occult blood as well as mixed gram positive organisms. ?CBC was within normal limits. ? Shadia has undergone prior endoscopy, thinks this was in 2007, by Dr. Lee. ?She denies a history of polyps. ??Denies family history of colon cancer. ??Patient states that in the past she had episodes suspected to be diverticulitis not formally diagnosed. ?She had previously had ?episodes of lower abdominal pain and underwent lysis of adhesions in conjunction with [employer] procedure in 2014. ? ? We obtained a CT scan of the abdomen and pelvis. ?This demonstated mild diverticulitis in the descending colon/proximal sigmoid. There was no colon approximate to the bladder, no bladder thickening and no air in the bladder ? ?I performed lower endoscopy on July 09, 2018. ?The patient was found to have significant tortuosity and diverticulosis which may be concerned for blindly try and advance the scope through the segment through the risk of injury. ?Endoscopy was aborted. ?Endoscopically there were no visualized area suspicious for malignancy. ? A follow-up barium enema was obtained. ?This demonstrated diverticulosis in the left hemicolon. ?There was also noted to be a focal area of narrowing with overhanging edges in the midportion of the sigmoid colon. ?It was listed as a neoplastic process should be ruled out and that there was no evidence obstruction. ?Reviewing the barium enema in concert with the CT scan I do see what Dr. Haywood is noting. ?I agree this is most likely a diverticular narrowing segment but also agree that I cannot rule out a malignancy in this area. ? We planned a repeat colonoscopy and if I am unable to get past the area of concern and prove this is nonsignificant then would plan for laparoscopic sigmoid resection the following day. I performed colonoscopy on August 20, and with pressure was able to get beyond the area of concern. Clinically I felt the area of pressure was at approximately 20-30 cm and felt this was lower than the area at the descending colon sigmoid junction. The colon remained completely distended following the procedure. The patient had no abdominal pain. A postprocedure KUB was obtained and a chest x-ray was obtained which was initially interpreted as no free air but later reread with a question of extraluminal air versus a distended stomach. Incidentally, the patient was noted to have what seemed to be a small amount of blood in the base of the cecum so upper endoscopy was performed which demonstrated some mild gastritis but no source of bleeding. The patient was contacted and had no complaints of abdominal pain at that time. She was instructed to contact me if she was having any worsening symptoms. 48 hours later, the patient noted left lower quadrant pain. She presented emergency department and underwent a follow-up CT scan which demonstrated some extraluminal free air in the upper abdomen and what appeared to be again inflammation consistent with diverticulitis at the proximal sigmoid colon area. The patient's white blood cell count was 12. Due to a penicillin allergy she was admitted with plans for IV antibiotics on clear liquids with low residue diet and to monitor the patient. her white count has normalized. She has less abdominal pain and is passing flatus and tolerating orals - Physical Exam General: Alert, Oriented x3, Cooperative Lungs: Clear to auscultation, Normal air movement Cardiovascular: Regular rate, No murmurs Abdomen: Bowel Sounds Present, Soft, Tender - LLQ Vital Signs Temp Pulse Resp BP Pulse Ox 98.2 F 82 16 128/65 H 93 08/26/18 07:56 08/26/18 07:56 08/26/18 07:56 08/26/18 07:56 08/26/18 07:56 Oxygen Flow Rate (L/min) 2 Oxygen Delivery Method Room Air Weight: 60.6 kg Body Mass Index (BMI) 26.1 Intake and Output for Last 24 Hours 08/24/18 08/25/18 08/26/18 23:59 23:59 23:59 Intake Total 3224 / 3224 3138 / 3138 814 / 814 Output Total 1100 / 1100 2050 / 2050 250 / 250 Balance 2124 / 2124 1088 / 1088 564 / 564 Laboratory Tests Past 24 Hrs 08/26/18 08/26/18 05:56 05:56 WBC 9.2 RBC 4.08 L Hgb 12.4 Hct 37.1 MCV 90.9 MCH 30.4 MCHC 33.4 RDW 14.3 RDW Differential 46.7 H Plt Count 201 MPV 12.0 Immature Gran % (Auto) 0.400 Neut % (Auto) 72.6 H Lymph % (Auto) 15.3 L [place] % (Auto) 10.3 H Eos % (Auto) 1.2 Baso % (Auto) 0.2 Absolute Neuts (auto) 6.7 Absolute Lymphs (auto) 1.41 Total Counted Not Reportable Sodium 139 Potassium 3.0 L Chloride 106 Carbon Dioxide 24.0 Anion Gap 9 BUN 7 Creatinine 0.69 Estim Creat Clear Calc 33.30 Est GFR (MDRD) Af Amer 105 Est GFR (MDRD) Non-Af 87 BUN/Creatinine Ratio 10.1 Glucose 103 Calcium 7.8 L Discharge Diet: - - low residue Discharge Activity: No Restrictions May shower in (days): 0 Call your doctor if you observe: Fever of 101 or Higher, - - no flatus Home Medications: Medications to take at Discharge Aspirin [Aspirin, Baby] 81 mg PO DAILY@0800 08/14/18 Cholecalciferol (VIT D3) [Vitamin D3] 1,000 unit PO DAILY 08/14/18 Acetaminophen [Tylenol Tablet] 325 mg PO Q4H PRN PRN tablet 08/26/18 Ciprofloxacin [Cipro] 500 mg PO BID 10 Days #20 tab 08/26/18 Metronidazole [Flagyl] 500 mg PO TID #30 tab 08/26/18 Following Prescrptions Were Given to Patient: Ciprofloxacin [Cipro] 500 mg PO BID 10 Days #20 tab Metronidazole [Flagyl] 500 mg PO TID #30 tab Primary Care Physician: Doroteo Dominguez MD [Primary Care Provider] - Please Follow Up With: Yoel Guzman MD When: Medical Necessity - Tobacco Use Smoking Status: Never smoker Meaningful Use Info Meaningful Use Diagnoses (Choose all that apply): None applicable
--- NOTE | 2018-08-26 09:05 | DS.PCM_ITS ---
Discharge Date and Diagnosis Date of Admission: 08/23/18 Date of Discharge: 08/26/18 - Primary Discharge Diagnosis diverticulitis with pneumoperitoneum - Secondary Discharge Diagnosis Chronic Problems Recurrent cold sores (Chronic) HLD (hyperlipidemia) (Chronic) Hospital Course and Treatment Imaging Results: Diagnostic Data Abdomen/Pelvis CT 08/22/18 23:29 IMPRESSION: 1. Pneumoperitoneum probably related to perforation located at the proximal sigmoid and distal descending colon. 2. There is acute inflammation in the left lower quadrant probably related to sequela of acute diverticulitis. 3. Bilateral basilar dependent and segmental atelectasis. N.B. : The above information has been verbally conveyed by Leena Pike MD to Doroteo Grider on 08/23/2018 00:27:48 (ET). Electronically Signed: Leena Pike MD at 0:43 EST , Service support , Operations: None Procedures: None Summary of Care Provided: he patient is a 78 year old F with a scant amount of free air and left lower quadrant pain consistent with recurrent diverticulitis following colonoscopy this past Sunday.. Shadia notes a 6-month history of abdominal complaints. ?She notes a pressure sensation and discomfort in her left lower abdomen intermittently, does not radiate, varies in intensity-states currently 2/10. ?Notes pressure with having a bowel movement and feels that she passes air when she urinates. ?Notes recently when wiping after urination she sees stool on the paper. ?Denies frequent UTIs. ?She does note a recent history of low-grade fever-100.5. ?Was evaluated by her PCP who ordered UA and bloodwork as well as CT scan. ?Urine re sults reviewed in [facility], positive for occult blood as well as mixed gram positive organisms. ?CBC was within normal limits. ? hSadia has undergone prior endoscopy, thinks this was in 2007, by Dr. Lee. ?She denies a history of polyps. ??Denies family history of colon cancer. ??Patient states that in the past she had episodes suspected to be diverticulitis not formally diagnosed. ?She had previously had ?episodes of lower abdominal pain and underwent lysis of adhesions in conjunction with [employer] procedure in 2014. ? ? We obtained a CT scan of the abdomen and pelvis. ?This demonstated mild diver ticulitis in the descending colon/proximal sigmoid. There was no colon approximate to the bladder, no bladder thickening and no air in the bladder ? ?I performed lower endoscopy on July 09, 2018. ?The patient was found to have significant tortuosity and diverticulosis which may be concerned for blindly try and advance the scope through the segment through the risk of injury. ?Endoscopy was aborted. ?Endoscopically there were no visualized area suspicious for malignancy. ? A follow-up barium enema was obtained. ?This demonstrated diverticulosis in the left hemicolon. ?There was also noted to be a focal area of narrowing with overhanging edges in the midportion of the sigmoid colon. ?It was listed as a neoplastic process should be ruled out and that there was no evidence obstruction. ?Reviewing the barium enema in concert with the CT scan I do see what Dr. Haywood is noting. ?I agree this is most likely a diverticular narrowing segment but also agree that I cannot rule out a malignancy in this area. ? We planned a repeat colonoscopy and if I am unable to get past the area of concern and prove this is nonsignificant then would plan for laparoscopic sigmoid resection the following day. I performed colonoscopy on August 20, and with pressure was able to get beyond the area of concern. Clinically I felt the area of pressure was at approximately 20-30 cm and felt this was lower than the area at the descending colon sigmoid junction. The colon remained completely distended following the procedure. The patient had no abdominal pain. A postprocedure KUB was obtained and a chest x-ray was obtained which was initially interpreted as no free air but later reread with a question of extraluminal air versus a distended stomach. Incidentally, the patient was noted to have what seemed to be a small amount of blood in the base of the cecum so upper endoscopy was performed which demonstrated some mild gastritis but no source of bleeding. The patient was contacted and had no complaints of abdominal pain at that time. She was instructed to contact me if she was having any worsening symptoms. 48 hours later, the patient noted left lower quadrant pain[facility] follow-up CT scan which demonstrated some extraluminal free air in the upper abdomen and what appeared to be again inflammation consistent with diverticulitis at the proximal sigmoid colon area. The patient's white blood cell count was 12. Due to a penicillin allergy she was admitted with plans for IV antibiotics on clear liquids with low residue diet and to monitor the patient. her white count has normalized. She has less abdominal pain and is passing flatus and tolerating orals - Physical Exam General: Alert, Oriented x3, Cooperative Lungs: Clear to auscultation, Normal air movement Cardiovascular: Regular rate, No murmurs Abdomen: Bowel Sounds Present, Soft, Tender - LLQ Vital Signs Temp Pulse Resp BP Pulse Ox 98.2 F 82 16 128/65 H 93 08/26/18 07:56 08/26/18 07:56 08/26/18 07:56 08/26/18 07:56 08/26/18 07:56 Oxygen Flow Rate (L/min) 2 Oxygen Delivery Method Room Air Weight: 60.6 kg Body Mass Index (BMI) 26.1 Intake and Output for Last 24 Hours 08/24/18 08/25/18 08/26/18 23:59 23:59 23:59 Intake Total 3224 / 3224 3138 / 3138 814 / 814 Output Total 1100 / 1100 2049 / 2049 250 / 250 Balance 2124 / 2124 1088 / 1088 564 / 564 Laboratory Tests Past 24 Hrs 08/26/18 08/26/18 05:56 05:56 WBC 9.2 RBC 4.08 L Hgb 12.4 Hct 37.1 MCV 90.9 MCH 30.4 MCHC 33.4 RDW 14.3 RDW Differential 46.7 H Plt Count 201 MPV 12.0 Immature Gran % (Auto) 0.400 Neut % (Auto) 72.6 H Lymph % (Auto) 15.3 L [place] % (Auto) 10.3 H Eos % (Auto) 1.2 Baso % (Auto) 0.2 Absolute Neuts (auto) 6.7 Absolute Lymphs (auto) 1.41 Total Counted Not Reportable Sodium 139 Potassium 3.0 L Chloride 106 Carbon Dioxide 24.0 Anion Gap 9 BUN 7 Creatinine 0.69 Estim Creat Clear Calc 33.30 Est GFR (MDRD) Af Amer 105 Est GFR (MDRD) Non-Af 87 BUN/Creatinine Ratio 10.1 Glucose 103 Calcium 7.8 L Discharge Diet: - - low residue Discharge Activity: No Restrictions May shower in (days): 0 Call your doctor if you observe: Fever of 101 or Higher, - - no flatus Home Medications: Medications to take at Discharge Aspirin [Aspirin, Baby] 81 mg PO DAILY@0800 08/14/18 Cholecalciferol (VIT D3) [Vitamin D3] 1,000 unit PO DAILY 08/14/18 Acetaminophen [Tylenol Tablet] 325 mg PO Q4H PRN PRN tablet 08/26/18 Ciprofloxacin [Cipro] 500 mg PO BID 10 Days #20 tab 08/26/18 Metronidazole [Flagyl] 500 mg PO TID #30 tab 08/26/18 Following Prescrptions Were Given to Patient: Ciprofloxacin [Cipro] 500 mg PO BID 10 Days #20 tab Metronidazole [Flagyl] 500 mg PO TID #30 tab Primary Care Physician: Doroteo Dominguez MD [Primary Care Provider] - Please Follow Up With: Yoel Guzman MD When: Medical Necessity - Tobacco Use Smoking Status: Never smoker Meaningful Use Info Meaningful Use Diagnoses (Choose all that apply): None applicable
== END 2018-08-26 08:30 | disposition home or self-care (01) | DRG 392 ==
LOC: ED 08-23 00:57 → MS3 08-23 01:41
PROVIDERS: Admitting Provider Surgery; Emergency Provider Emergency Medicine; Family Provider Family Medicine; PCP Family Medicine; Referring Provider Surgery; Visit Provider Surgery
DX: K57.20 Diverticulitis of large intestine with perforation and abscess without bleeding (principal); Z88.0 Allergy status to penicillin; K29.70 Gastritis, unspecified, without bleeding; E78.5 Hyperlipidemia, unspecified
CPT/HCPCS: 36415; 74176; 80048; 80053; 81001; 83690; 85025; 97802; 99284; J7030; J7120; A4216; J0744; J2405

== ENCOUNTER → 2018-09-12 07:52 | Outpatient (CLI) | payer MEDICARE, SELFPAY ==
[2018-08-23 02:19] VITALS: BMI 26.1
--- NOTE | 2018-09-12 07:55 | BI_ITS ---
MAMMOGRAPHY - BILATERAL SCREENING REASON FOR EXAM: Female, 78 years old. Routine annual screening examination. PERTINENT HISTORY: Non-contributory. TECHNIQUE: Digital bilateral breast campbell (3D mammographic acquisition) in the CC and MLO projections. 2-D mediolateral oblique (MLO) and craniocaudad (CC) views of both breasts were obtained. CAD: Full Field Digital Mammography with Computer Added Detection was performed. COMPARISON: Comparison is made with prior study dated March 22, 2017 and February 22, 2016. FINDINGS: Breast Composition: There are scattered areas of fibroglandular density. There are no dominant masses or suspicious calcifications. No other significant abnormalities are identified. There has been no significant change since the prior study. BI/SCREENING MAMM (CAD), BILAT IMPRESSION: Stable bilateral screening mammogram. Yearly follow-up mammogram recommended. (A) ASSESSMENT CATEGORY: BIRADS Category 1: Negative. A letter regarding these results will be sent to the patient by the facility within 30 days. Approximately 10% of breast cancers are not detected by mammography. A normal mammogram should not delay biopsy of a clinically suspicious abnormality. [id number] Electronically Signed: Dominic Haywood MD at 9:10 EST Tel [phone], Service support ,
--- NOTE | 2018-09-12 08:34 | BD_ITS ---
STUDY: DUAL ENERGY X-RAY ABSORPTIOMETRY / DXA REASON FOR EXAM: Female, 78 years old. The patient is postmenopausal. Loss of height. TECHNIQUE: Bone Mineral Density (BMD) measurements of lumbar spine and bilateral hips were obtained. COMPARISON: Comparison is made with prior study dated February 22, 2016. FINDINGS: Lumbar Spine (L1-L4): g/cm2 (0.917) / T-score (-2.2) / Z-score (-0.4) Findings are suggestive of osteopenia with a moderate fracture risk. Left Femur Total: g/cm2 (0.706) / T-score (-2.4) / Z-score (-0.5) Left Femoral Neck: g/cm2 (0.747) / T-score (-2.1) / Z-score (0.0) Right Femur Total: g/cm2 (0.689) / T-score (-2.5) / Z-score (-0.6) Right Femoral Neck: g/cm2 (0.715) / T-score (-2.3) / Z-score (-0.3) The T-Scores on the most recent prior examination were: Lumbar Spine (L1-L4): There has been worsening of bone density since the previous examination. Left Femur Total: which represents a worsening of 3.8%. Right Femur Total: which represents a worsening of 3.1%. BD/Dexa Bone Density Study IMPRESSION: The patient is considered osteopenic as outlined below according to World Saleem Organization (WHO) criteria with a high fracture risk. There has been worsening of bone density since the previous examination. Reference Information: The T-score is the number of standard deviations above or below the standard which is normal for young adults at their peak bone mineral density. The World Health Organization (WHO) interprets the T-scores as follows: Above -1 Normal bone density Between -1 and -2.5 Osteopenia Equal to / or below -2.5 Osteoporosis As a practical clinical guideline, osteopenia may be graded as follows: Mild -1 through -1.5 Moderate -1.6 through -2.0 Severe -2.1 through -2.4 The Z-score is the number of standard deviations above or below age-matched controls. A Z-score of less than -1.5 would be considered abnormal. References: 1. NIH Osteoporosis and Related Bone Diseases http://www.osteo.org 2. International Society for Clinical Densitometry http://www.iscd.org 3. National Osteoporosis Foundation http://www.nof.org Electronically Signed: Dominic Haywood MD at 14:54 EST Tel [phone], Service support ,
== END ==
PROVIDERS: Family Provider Family Medicine; PCP Family Medicine; Referring Provider Obstetrics & Gynecology; Visit Provider Family Medicine
DX: M85.80 Other specified disorders of bone density and structure, unspecified site (principal); Z78.0 Asymptomatic menopausal state; Z12.31 Encounter for screening mammogram for malignant neoplasm of breast
CPT/HCPCS: 77063; 77067; 77080

== ENCOUNTER → 2018-09-19 13:45 | Outpatient (CLI) | payer MEDICARE, SELFPAY ==
[2018-08-14 15:30] VITALS: BP 143/81; PULSE 79; RESP 16; TEMP 37.2; O2SAT 96; BMI 25.0
--- NOTE | 2018-08-14 15:58 | SDCEKG_ITS ---
Test Reason : Blood Pressure : / mmHG Vent. Rate : 074 BPM Atrial Rate : 074 BPM P-R Int : 162 ms QRS Dur : 082 ms QT Int : 396 ms P-R-T Axes : 072 -07 034 degrees QTc Int : 439 ms Normal sinus rhythm Normal ECG Confirmed by ELISSA GEORGE, PRIYANKA ([id number]), medical transcription editor JUVENAL LOVE ([id number]) on 08/16/2018 10:10:36 AM Referred By: Yoel Guzman Confirmed By:PRIYANKA BOWERS MD
[2018-08-23 02:19] VITALS: BMI 26.1
--- OUTSIDE RECORDS SUMMARY | 2018-11-24 08:26 | XMS RPT_ITS ---
[...] Encounter JessikaKishan mckinney Active [place] for preprocedural [facility] examination / Repository Z01.810(ICD-10) 07/09/2018 Active Diverticulitis of MEGAN, Active [place] intestine, part [facility] Clinic Main unspecified, without [place] perforation or Repository abscess without bleeding / K57.92(ICD-10) 04/30/2018 Unknown R10.9 - Unspecified Miguel Dominguez Active [place] abdominal pain / Community R10.9(ICD-10) Hospital Repository 04/29/2018 Unknown R10.32 - Left lower Miguel Dominguez Active [place] quadrant pain / Community R10.32(ICD-10) Hospital Repository 04/29/2018 Unknown E78.00 - Pure Miguel Dominguez Active [place] hypercholesterolemia Community , unspecified / Hospital E78.00(ICD-10) Repository PROCEDURES PROCEDURES No Procedure Records FoundRESULTS RESULTS DEXA BONE DENSITY Observed: 09/12/2018 Status: F Source: [place] STUDY 7:59 AM [facility] REPOSITORY [facility] Imaging Services [address] [place] [address] Dexa Bone Density Study MR#: [id number] Acct: [id number] Name: SHADIA TURNER Rep #: [id number] : 1940 F 78 From: Dominic Haywood MD PCP: Miguel Dominguez MD Status: REG CLI Study: Dexa Bone Density Study Date of Exam: 09/12/18 Exam# [id number] Ordering Dr: Miguel Dominguez MD STUDY: DUAL [...] Dominic Haywood MD at 14:54 EST Tel [phone], Service support , CC: Miugel Dominguez MD Aircraft Magneto Mechanic: Signed SCREENING MAMM (CAD), Observed: 09/12/2018 Status: F Source: [place] BILAT 7:56 AM [facility] REPOSITORY [facility] Imaging Services [address] [place] [address] SCREENING MAMM (CAD), BILAT MR#: [id number] Acct: [id number] Name: SHADIA TURNER Rep #: [id number] : 1940 F 78 From: Dominic Haywood MD PCP: Miguel Dominguez MD Status: [facility] Study: SCREENING MAMM (CAD), BILAT Date of Exam: 09/12/18 Exam# [id number] Ordering Dr: Krishna Wharton MD MAMMOGRAPHY - [...] delay biopsy of a clinically suspicious abnormality. [id number] Electronically Signed: Dominic Haywood MD at 9:10 EST Tel [phone], Service support , CC: Miguel Dominguez MD; Krishna Wharton MD Aircraft Magneto Mechanic: Signed PROGRESS Observed: 09/07/2018 Status: COMPLETED Source: [place] 9:02 AM [facility] REPOSITORY HNO ID: [id number] Author: Neo Malik Service: (none) Author Type: Physician Type: Progress Notes Filed: 09/07/2018 9:30 AM Note Text: FOLLOW UP VISIT NAME: Shadia Turner [facility] NO.: [id number] DATE OF SERVICE: September 06, 2018 : [...] as CT scan. [facility], positive for occult blood as well as [...] underwent lysis of adhesions in conjunction with CONVEYANCER procedure in 2014. We obtained a CT [...] lower quadrant pain. She was admitted to [facility]. CT scan did demonstrate a small to [...] MD CNOV Observed: 09/06/2018 Status: COMPLETED Source: [place] 2:20 PM [facility] REPOSITORY Office Visit (GENSWS) SHADIA TURNER ([id number]) 1940 F Date Time Provider Department 09/06/18 2:20 PM NEO MALIK During your visit today, we recorded the following information about you: Temperature Pulse Blood pressure Weight 98.7 degrees 84/minute 114/58 57.7 kg Neo Malik MD 09/07/2018 9:30 AM Addendum FOLLOW UP VISIT NAME: Shadia Turner CLINIC NO.: [id number] DATE OF SERVICE: September 06, 2018 : [...] as CT scan. Urine results reviewed in [facility], positive for occult blood as well as [...] underwent lysis of adhesions in conjunction with CONVEYANCER procedure in 2014. We obtained a CT [...] lower quadrant pain. She was admitted to [facility]. CT scan did demonstrate a small to [...] Neo Malik MD Referring Provider: MIGUEL DOMINGUEZ [[id number]] Allergies As of Date: 09/06/2018 Noted Allergy Reaction AUGMENTIN (AMOXICILLIN-POT CLAVUL*05/08/2018 8 - GI Upset Comments: Unable to tolerate due to GI side effects LATEX 05/26/2009 2 - Rash Date Reviewed: 09/06/2018 Reviewed by: Demetrius Greenwood LPN - Fully Assessed Reason for Visit: Post Op [174] Cmt: f/u [facility] Primary Visit Diagnosis:Diverticulitis [K57.92] Prescriptions as of [...] 09/07/18 PROGRESS Observed: 08/29/2018 Status: COMPLETED Source: [place] 11:58 AM [facility] [place] REPOSITORY HNO ID: [id number] Author: Neo Malik Service: (none) Author Type: Physician Type: Progress Notes Filed: 08/29/2018 12:10 PM Note Text: FOLLOW UP VISIT NAME: Shadia Turner [facility] NO.: [id number] DATE OF SERVICE: 08/29/2018 : 1940 REFERRING [...] as CT scan. Urine results reviewed in [facility], positive for occult blood as well as [...] underwent lysis of adhesions in conjunction with CONVEYANCER procedure in 2014. We obtained a CT [...] lower quadrant pain. She was admitted to [facility]. CT scan did demonstrate a small to [...] MD CNOV Observed: 08/29/2018 Status: COMPLETED Source: [place] 9:20 AM [facility] REPOSITORY Office Visit (GENSWS) YUESHADIA ([id number]) 1940 F Date Time Provider Department 08/29/18 9:20 AM NEO MALIK During your visit today, we recorded the following information about you: Temperature Pulse Blood pressure Weight 98.5 degrees 96/minute 110/58 60 kg Neo Malik MD 08/29/2018 12:10 PM Signed FOLLOW UP VISIT NAME: Shadia Turner [facility] NO.: [id number] DATE OF SERVICE: 08/29/2018 : 1940 REFERRING [...] as CT scan. Urine results reviewed in [facility], positive for occult blood as well as [...] underwent lysis of adhesions in conjunction with CONVEYANCER procedure in 2014. We obtained a CT [...] lower quadrant pain. She was admitted to [facility]. CT scan did demonstrate a small to [...] Neo Malik MD Referring Provider: NEO MALIK [[id number]] Allergies As of Date: 08/29/2018 Noted Allergy [...] 08/26/2018 Status: F Source: [place] 9:05 AM [facility] REPOSITORY [facility] Medical Records Department [address] [place] [address] Discharge Summary 08/26/18900 MR#: [id number] Acct: [id number] Name: SHADIA TURNER Rep #: [id number] : 1940 78 From: Neo Malik MD PCP: Miguel Dominguez MD Status: DIS ANGELICA Y Location: [place] [address] Discharge Date and Diagnosis Date of Admission: [...] as CT scan. Urine results reviewed in [facility], positive for occult blood as well as [...] underwent lysis of adhesions in conjunction with CONVEYANCER procedure in 2014. We obtained a CT [...] 08/26/2018 Status: F Source: [place] 7:53 AM [facility] REPOSITORY [facility] Medical Records Department [address] [place] [address] Instructions for Home/Discharge Instructions 08/26/18 0750 MR#: [id number] Acct: [id number] Name: SHADIA TURNER Rep #: [id number] : 1940 78 From: Neo Malik MD [...] MD When: 08/26/18 0753 <Electronically signed by eNo Malik MD> Date Neo Malik MD CC: Miguel Dominguez MD Signed CBC W/DIFF, AUTOMATED Collected: 08/26/2018 Status: F Source: [place] 5:56 AM [facility] REPOSITORY TYPE CODE TESTS RESULT OUT [...] Lymph 1.41 Performed By: #### L100.0100 #### [facility] [address] [facility] [place], [place], [address] BASIC METABOLIC Collected: 08/26/2018 Status: F Source: TUR[place] PROFILE (BMP) 5:56 AM [facility] REPOSITORY TYPE CODE TESTS RESULT OUT [...] GAP 9 Performed By: #### L500.2500 #### [facility] [address] [facility] [place], [address] PROGRESS Observed: 08/24/2018 Status: COMPLETED Source: [place] 2:54 PM [facility] REPOSITORY HNO ID: [id number] Author: Neo Malik Service: (none) Author Type: Physician Type: Progress Notes Filed: 08/24/2018 2:58 PM Note Text: OPERATIVE NOTATION FOR [facility] SURGICAL PROCEDURE. August 20, 2018 Shadia Turner 1940 [id number] female PROCEDURE: COLONOSCOPY - 16151-750 SURGEON: Gerardo Malik M.D. FACS SENIOR STAFF SPECIALIZED EMPLOYMENT: None DEPT: WQ PROVIDER: [id number] Malik MD POS: [id number] DIAGNOSIS: (K57.92) Diverticulitis (primary encounter diagnosis) ASA CLASS: 3 - Severe FINDINGS: COMPLICATIONS: None PMHx - PAST MEDICAL HISTORY Diagnosis Date - Asthma as a child - Osteoporosis - Snoring COMORBIDITIES - None Post Op Occurrences - None Wound Classification - Contaminated Operative note dictated in the [facility] dictation system. Neo Malik MD CBC W/DIFF, AUTOMATED Collected: 08/24/2018 Status: F Source: TURNEY 6:23 AM [facility] REPOSITORY TYPE CODE TESTS RESULT OUT [...] Lymph 0.74 Performed By: #### L100.0100 #### [facility] [address] [place], [address] BASIC METABOLIC Collected: 08/24/2018 Status: F Source: [place] PROFILE (BMP) 6:23 AM [facility] REPOSITORY TYPE CODE TESTS RESULT OUT [...] GAP 7 Performed By: #### L500.2500 #### [facility] [address] [place], [address] HISTORY AND PHYSICAL Observed: 08/23/2018 Status: F Source: [place] EXAM 5:06 PM [facility] REPOSITORY [facility] Medical Records Department [address] [place] [address] History and Physical 08/23/18 1656 MR#: [id number] Acct: [id number] Name: SHADIA TURNER Rep #: [id number] : 1940 78 From: eNo Malik MD PCP: Miguel Dominguez MD Status: ADM ANGELICA Y Location: [place] [address] History of Present Illness Date of Admission: [...] as CT scan. Urine results reviewed in [facility], positive for occult blood as well as [...] underwent lysis of adhesions in conjunction with CONVEYANCER procedure in 2014. We obtained a CT [...] feet Psychiatric History: No pertinent psych hx CONVEYANCER History: No pertinent CONVEYANCER history Smoking Status: Never smoker - *Family [...] Neo Malik MD> Date Neo Malik MD [facility] Signature: Date (if applicable) CC: Miguel Dominguez MD; Neo Malik MD Signed EMERGENCY DEPARTMENT Observed: 08/23/2018 Status: F Source: [place] SUMMARY 12:57 AM [facility] REPOSITORY [facility] Medical Records Department [address] [place] [address] Emergency Department Summary 08/23/18 0042 MR#: [id number] Acct: [id number] Name: SHADIA TURNER Rep #: [id number] : 1940 78 From: Miguel Grider DO [...] 2. Pneumoperitoneum This note was generated with [employer] dictation software. It may contain incorrect words, spelling, and punctuation that were not noted in review of the chart prior to signing ED Disposition - Plan for ED Patient: Disposition: Acute Care Hospital [facility] Chief Complaint: Abd Pain Diagnosis: Abdominal pain, Pneumoperitoneum Referrals: Miguel Dominguez MD [Primary Care Provider] - What to do if you have Problems For any increased pain, shortness of breath, bleeding, nausea or vomiting, chest pain, or any unexpected problems, contact your Primary Care Provider. Call [facility] ([phone]) or report to the closest Emergency Room. Call 911 if necessary. 08/23/18 0057 <Electronically signed by Miguel Grider DO> Date Miguel Grider DO Cosigner Signature (If Indicated): Date CC: Miguel Dominguez MD URINALYSIS, COMPLETE Collected: 08/22/2018 Status: F Source: [place] 11:59 PM [facility] REPOSITORY Order Comment: How was Urine Obtained? SURFACE MOUNT TECHNOLOGY OPERATOR TO SPECIFY TYPE CODE TESTS RESULT OUT [...] URINE SEEN Performed By: #### L400.0001 #### [facility] [address] [facility] [address] [place], [place], [address] ABDOMEN/PELVIS WITHOUT Observed: 08/22/2018 Status: F Source: [place] CONT 11:31 PM [facility] REPOSITORY [facility] Imaging Services [address] [place] [address] Abdomen/Pelvis without Cont MR#: [id number] Acct: [id number] Name: SHADIA TURNER Rep #: [id number] : 1940 F 78 From: Leena Love MD PCP: Miguel Dominguez MD Status: REG ER Study: Abdomen/Pelvis without Cont Date of Exam: 08/22/18 Exam# [id number] Ordering Dr: Miguel Grider DO STUDY: CT [...] CC: Miguel Grider DO; Miguel Dominguez MD Aircraft Magneto Mechanic: Signed CBC W/DIFF, AUTOMATED Collected: 08/22/2018 Status: F Source: [place] 11:00 PM [facility] REPOSITORY TYPE CODE TESTS RESULT OUT [...] Lymph 1.16 Performed By: #### L100.0100 #### [facility] [address] [place], [address] COMPREHENSIVE METABOLIC Collected: 08/22/2018 Status: F Source: [facility] 11:00 PM [facility] REPOSITORY TYPE CODE TESTS RESULT OUT [...] 10 Performed By: #### L500.4050, L501.2450 #### [facility] [address] [place], [address] LIPASE Collected: 08/22/2018 Status: F Source: T[place]NEY 11:00 PM [facility] REPOSITORY TYPE CODE TESTS RESULT OUT OF RANGE REFERENCE UNITS LAB L501.2450 73-393 U/L Normal LIPASE 115 Performed By: #### L500.4050, L501.2450 #### [facility] [address] [place], [address] CHEST 1 VIEW Observed: 08/20/2018 Status: F Source: [place]NEY (PORTABLE) 3:11 PM [facility] REPOSITORY [facility] Imaging Services [address] [place] [address] Chest 1 View (Portable) MR#: [id number] Acct: [id number] Name: SHADIA TURNER [place] Rep #: [id number] : 1940 F 78 From: Italia Smyth MD PCP: Miguel Dominguez MD Status: [facility] Study: Chest 1 View (Portable) Date of Exam: 08/20/18 Exam# [id number] Ordering Dr: Neo Malik MD STUDY: X-RAY [...] CC: Miguel Dominguez MD; Neo Malik MD Aircraft Magneto Mechanic: Signed ABDOMEN SINGLE VIEW Observed: 08/20/2018 Status: F Source: [place] (PORTABLE) 2:47 PM [facility] REPOSITORY [facility] Imaging Services [address] [place] [address] Abdomen Single View (Portable) MR#: [id number] Acct: [id number] Name: SHADIA TURNER Rep #: [id number] : 1940 F 78 From: Mykel Chowdhury MD PCP: Miguel Dominguez MD Status: [facility] Study: Abdomen Single View (Portable) Date of Exam: 08/20/18 Exam# [id number] Ordering Dr: Neo Malik MD STUDY: X-RAY [...] CC: Miguel Dominguez MD; Neo Malik MD Aircraft Magneto Mechanic: Signed OPERATIVE REPORT - Observed: 08/20/2018 Status: F Source: [place] ENDOSCOPY 2:28 PM [facility] REPOSITORY [facility] Medical Records Department [address] [place] [address] Operative Report - Endoscopy MR#: [id number] Acct: [id number] Name: SHADIA TURNER Rep #: [id number] : 1940 78 From: Neo Malik MD PCP: Miguel Dominguez MD Status: [facility] Patient Name: Shadia Turner Procedure Date: [...] by the physician, the nurse and the lay out helper in the procedure room. Mental Status Examination: [...] for review. Procedure Code(s): --- Professional --- 77647, Colonoscopy, flexible; diagnostic, including collection of specimen(s) by brushing or washing, when performed (separate procedure) CPT copyright 2017 [employer]. All rights reserved. The codes documented in this report are preliminary and upon sparker and patcher review may be revised to meet current compliance requirements. Neo Malik MD 08/20/2018 2:28:11 PM This report has been signed electronically. Number of Addenda: 0 Note Initiated On: 08/20/2018 12:50 PM 08/20/18 1428 Date Neo Malik MD Cosigner Signature: Date (if indicated) CC: Miguel Dominguez MD; Neo Malik MD Date Dictated: 08/20/18 1250 Date Transcribed: Aircraft Magneto Mechanic: MARTIN Signed OPERATIVE REPORT - Observed: 08/20/2018 Status: F Source: [place] ENDOSCOPY 2:23 PM [facility] REPOSITORY [facility] Medical Records Department [address] [place] [address] Operative Report - Endoscopy MR#: [id number] Acct: [id number] Name: SHADIA TURNER Rep #: [id number] : 1940 78 From: Neo Malik MD PCP: Miguel Dominguez MD Status: REG [facility] Patient Name: Shadia Turner Procedure Date: 08/20/2018 [...] by the physician, the nurse and the lay out helper in the procedure room. Mental Status Examination: [...] present medications. Procedure Code(s): --- Professional --- 33931, Esophagogastroduodenoscopy, flexible, transoral; with biopsy, single or multiple CPT copyright 2017 [employer]. All rights reserved. The codes documented in this report are preliminary and upon sparker and patcher review may be revised to meet current compliance requirements. Neo Malik MD 08/20/2018 2:22:26 PM This report has been signed electronically. Number of Addenda: 0 Note Initiated On: 08/20/2018 2:06 PM 08/20/18 1422 Date Neo Malik MD Cosigner Signature: Date (if indicated) CC: Miguel Dominguez MD; Neo Malik MD Date Dictated: 08/20/18 1406 Date Transcribed: Aircraft Magneto Mechanic: RG Signed COLON BIOPSY (CHOOSE Observed: 08/20/2018 Status: F Source: [facility]) 1:00 PM [facility] REPOSITORY Patient: SHADIA TURNER : 1940 (78/F) Acct Num: [id number] Phys: Neo Malik MD Unit Num: [id number] Loc: EN Specimen: [id number] Received: 08/20/18 5659 Spec Type: COLON BX TISSUES 1 TISSUES: A. Cecum, NOS B. Gastric mucous membrane C. Gastric mucous membrane COMMENT B. The results of immunohistochemistry for Helicobacter pylori will be reported separately (UI08-1992). GROSS DESCRIPTION A - Received in fixative [...] one cassette. / AM:martin 08/21/18 TC:3 CPT: 85870 x3 HEADER OPERATION: Colonoscopy, EGD ([facility] PRE-OP DIAGNOSIS: Barium enema with possible malignancy [...] on file> Performed By: #### PCOLBX #### [facility] [address] [place] [address], [address] IMMUNOHISTOCHEMISTRY Observed: 08/20/2018 Status: F Source: TURNEY 1:00 PM [facility] REPOSITORY Patient: SHADIA TURNER : 1940 (78/F) Acct Num: [id number] Phys: Neo Malik MD Unit Num: [id number] Loc: EN Specimen: [id number] Received: 08/21/18 - 1143 Spec Type: IMMUNO TISSUES 1 TISSUES: B. Stomach, NOS SPECIMEN INFORMATION: Tissue Source: B - Antrum biopsy Clinical Info: Possible malignancy Specimen Number: [id number] CPT code: 93120 METHODOLOGY: Deparaffinized sections of prefer/formalin-fixed tissue or [...] developed and their performance characteristics determined by [facility]. They may not have been cleared or approved by the U.S. Food and Drug Administration. The FDA has determined that such clearance or approval is not necessary. INTERPRETATION: B. Antrum, biopsy: Negative for Helicobacter pylori organisms. SJ:martin 08/23/18 PHYSICIAN AND INSTITUTION [place] [id number] Signed Filippo Vallejo MD 08/23/18 <signature on file> Performed By: #### PIMM #### [facility] [address] [place] [address]. [place], [address] HISTORY AND PHYSICAL Observed: 08/20/2018 Status: F Source: TURNEY EXAM 12:47 PM [facility] REPOSITORY [facility] Medical Records Department [address] [place] [address] History and Physical 08/20/18 1246 MR#: [id number] Acct: [id number] Name: SHADIA TURNER Rep #: [id number] : 1940 78 From: Neo Malik MD [...] as CT scan. [facility], positive for occult blood as well as [...] underwent lysis of adhesions in conjunction with CONVEYANCER procedure in 2014. 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 The planned surgical procedure was discussed extensively [...] CPT Code: Laparoscopic Low Anterior Resection - 92103-642 Anticipated Anesthetic: General Patient weight: Blood pressure 138/62, pulse 88. BMI: There is no height or weight on file to calculate BMI. Planned antibiotic: Levaquin 500mg IVPB contribution solicitor to OR SCDs needed - Yes Cementing Bulk Material Operator Needed - Yes Diagnoses: (D12.6) Adenomatous polyp [...] Signed CNOP Observed: 08/20/2018 Status: COMPLETED Source: [place] 12:00 AM [facility] REPOSITORY Operative Note (Enc) (GENSWS) Progress Notes: Neo Malik MD 08/24/2018 2:58 PM Signed OPERATIVE NOTATION FOR [facility] SURGICAL PROCEDURE. August 20, 2018 Shadia Alfordener 1940 [id number] female PROCEDURE: COLONOSCOPY - 94436-694 SURGEON: Gerardo Malik M.D. FACS SENIOR STAFF SPECIALIZED EMPLOYMENT: None DEPT: WQ PROVIDER: L79=IesnjagNeo Malik MD POS: [id number] DIAGNOSIS: (K57.92) Diverticulitis (primary encounter diagnosis) ASA CLASS: 3 - Severe FINDINGS: COMPLICATIONS: None PMHx - PAST MEDICAL HISTORY Diagnosis Date - Asthma as a child - Osteoporosis - Snoring COMORBIDITIES - None Post Op Occurrences - None Wound Classification - Contaminated Operative note dictated in the [facility] dictation system. Neo Malik MD Encounter Status:Closed by NEO MLAIK MD on 08/24/18 12 LEAD ELECTROCARDIOGRAM Observed: 08/16/2018 Status: F Source: TURNEY 10:11 AM [facility] REPOSITORY [facility] Cardiovascular Services [address] [place] [address] EKG - [facility] 08/14/18 160 MR#: [id number] Acct: [id number] Name: SHADIA TURNER Rep #: [id number] : 1940 78 From: Kishan Rosen MD Attending Dr: Neo Malik MD Status: PRE IN Ordering Dr: Bernabe Wharton MD Date: 08/14/18 Location: [facility] Sex: F C Admitted: Test Reason : Blood Pressure : / mmHG Vent. Rate : 074 BPM Atrial Rate : 074 BPM P-R Int : 162 ms QRS Dur : 082 ms QT Int : 396 ms P-R-T Axes : 072 -07 034 degrees QTc Int : 439 ms Normal sinus rhythm Normal ECG Confirmed by KISHAN ROSEN MD ([id number]), editor city JUVENAL LOVE ([id number]) on 08/16/2018 10:10:36 AM Referred By: Neo Malik Confirmed By:KISHAN ROSEN MD 08/16/18 1010 Date Kishan Rosen MD CC: Bernabe Wharton MD; Miguel Dominguez MD; Neo Malik MD Date Dictated: 08/14/18 1602 Date Transcribed: 08/14/181601 Aircraft Magneto Mechanic: Signed PROGRESS Observed: 08/07/2018 Status: COMPLETED Source: [place] 10:17 AM [facility] REPOSITORY O ID: [id number] Author: Neo Malik Service: (none) Author Type: [...] as CT scan. [facility], positive for occult blood as well as [...] underwent lysis of adhesions in conjunction with CONVEYANCER procedure in 2014. 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 The planned surgical procedure was discussed extensively [...] CPT Code: Laparoscopic Low Anterior Resection - 12144-936 Anticipated Anesthetic: General Patient weight: Blood pressure 138/62, pulse 88. BMI: There is no height or weight on file to calculate BMI. Planned antibiotic: Levaquin 500mg IVPB contribution solicitor to OR SCDs needed - Yes Cementing Bulk Material Operator Needed - Yes Diagnoses: (D12.6) Adenomatous polyp of colon, unspecified part of colon (primary encounter diagnosis) A letter was sent to Dr. Miguel Dominguez MD indicating the above finding for this patient. Return to Clinic: The patient is instructed to follow-up with me 1 week post operatively. Neo Malik MD CNOV Observed: 08/06/2018 Status: COMPLETED Source: [place] 1:20 PM [facility] REPOSITORY Office Visit (GENSWS) SHADIA TURNER ([id number]) 1940 F Date Time Provider Department 08/06/18 [...] to your office visit today with the [place] [facility] General Surgeons. INSTRUCTIONS FOR YOUR SURGICAL PROCEDURE [...] you should contact our office immediately @ [phone] and ask to be transferred to the [...] as CT scan. [facility], positive for occult blood as well as [...] underwent lysis of adhesions in conjunction with CONVEYANCER procedure in 2014. 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 The planned surgical procedure was discussed extensively [...] CPT Code: Laparoscopic Low Anterior Resection - 22482-225 Anticipated Anesthetic: General Patient weight: Blood pressure 138/62, pulse 88. BMI: There is no height or weight on file to calculate BMI. Planned antibiotic: Levaquin 500mg IVPB contribution solicitor to OR SCDs needed - Yes Cementing Bulk Material Operator Needed - Yes Diagnoses: (D12.6) Adenomatous polyp of colon, unspecified part of colon (primary encounter diagnosis) A letter was sent to Dr. Miguel Dominguez MD indicating the above finding for this patient. Return to Clinic: The patient is instructed to follow-up with me 1 week post operatively. Neo Malik MD Referring Provider: MIGUEL DOMINGUEZ [[id number]] Allergies As of Date: 08/06/2018 Noted Allergy [...] to your office visit today with the [facility] General Surgeons. INSTRUCTIONS FOR YOUR SURGICAL PROCEDURE [...] you should contact our office immediately @ [phone] and ask to be transferred to the [...] SIGNATURE TIME TIME DATE August 07, 2018 [facility] DATE August 07, 2018 Orders verified by readback: PRE-ADMISSION TESTING PHYSICIAN'S ORDER SHEET PREOPERATIVE ORDERS: X ANTIBIOTIC: _Levaquin 500mg IVPB contribution solicitor to OR__ aware of penicillin allergy ok to administer X SCD'S __ PREP LOCATION: ___abdomen, mod lithotomy_ __ PAINT WITH BETADINE/CHLORAHEXIDINE PREP PRE-ADMISSION TESTING PHYSICIAN'S ORDER SHEET 12956 CR001 REV 3. ANESTHESIA: __ Surgeon has notified anesthesia. Date/Time Doctor OR __ Anesthesia not yet notified of consult by surgeon. Check area of concern. System of concern: __Cardiac __Pulmonary __Neuro __ Airway __Allergies __Other __ Anesthesia to see patient at PAT appointment. 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 No doctor, nurse or anyone from [facility] promised or guaranteed the success or [...] -- Date and Time signed Physician's signature [id number] Rev 03/09 Informed Consent [address] [facility] Informed Consent Surgery / Procedure: Laparoscopic Low Anterior Resection - 93679-387 Surgeon / Physician: Neo Malik MD My [...] science. No doctor, nurse or anyone from [facility] promised or guaranteed the success or [...] of my confidential medical record. To allow [facility] employees, such as an Registered Nurse Natural Developer (PUTTY GLAZER) to assist with my surgery To allow Healthcare Industry Representatives to be present during my surgery or procedure To allow students to participate in the care, under appropriate situations. Page [address] [facility] Informed Consent Check One: To give [...] have explained. Physician?s Signature Date and Time [place] [facility] Surgery [address] [place], [place] [address] Miguel Dominguez MD ([facility]) [address] [place] [address] 08/07/2018 Dear Miguel Dominguez MD : Thank [...] as CT scan. Urine results reviewed in [facility], positive for occult blood as well as [...] underwent lysis of adhesions in conjunction with CONVEYANCER procedure in 2014. 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 The planned surgical procedure was discussed extensively [...] CPT Code: Laparoscopic Low Anterior Resection - 00583-940 Anticipated Anesthetic: General Patient weight: Blood pressure 138/62, pulse 88. BMI: There is no height or weight on file to calculate BMI. Planned antibiotic: Levaquin 500mg IVPB contribution solicitor to OR SCDs needed - Yes Cementing Bulk Material Operator Needed - Yes Diagnoses: (D12.6) Adenomatous polyp [...] as CT scan. [facility], positive for occult blood as well as [...] underwent lysis of adhesions in conjunction with CONVEYANCER procedure in 2014. 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 The planned surgical procedure was discussed extensively [...] CPT Code: Laparoscopic Low Anterior Resection - 19891-284 Anticipated Anesthetic: General Patient weight: Blood pressure 138/62, pulse 88. BMI: There is no height or weight on file to calculate BMI. Planned antibiotic: Levaquin 500mg IVPB contribution solicitor to OR SCDs needed - Yes Cementing Bulk Material Operator Needed - Yes Diagnoses: (D12.6) Adenomatous polyp [...] 08/07/18 PROGRESS Observed: 07/19/2018 Status: COMPLETED Source: [place] 12:49 PM [facility] REPOSITORY [facility] ID: [id number] Author: Neo Malik Service: (none) Author Type: Physician Type: Progress Notes Filed: 07/19/2018 12:54 PM Note Text: FOLLOW UP VISIT - ENDOSCOPY NAME: Shadia [facility] NO.: [id number] DATE OF SERVICE: 07/16/2018 : 1940 REFERRING [...] as CT scan. [facility], positive for occult blood as well as [...] underwent lysis of adhesions in conjunction with CONVEYANCER procedure in 2014. We obtained a CT [...] MD CNOV Observed: 07/16/2018 Status: COMPLETED Source: [place] 2:50 PM [facility] REPOSITORY Office Visit (GENSWS) YUESHADIA BATISTA ([id number]) 1940 F Date Time Provider Department 07/16/18 2:50 PM NEO MALIK GENARNULFO During your visit today, we recorded the following information about you: Neo Malik MD 07/19/2018 12:54 PM Signed FOLLOW UP VISIT - ENDOSCOPY NAME: Shadia Turner CLINIC NO.: [id number] DATE OF SERVICE: 07/16/2018 : 1940 REFERRING [...] underwent lysis of adhesions in conjunction with CONVEYANCER procedure in 2014. We obtained a CT [...] Neo Malik MD Referring Provider: MIGUEL DOMINGUEZ [[id number]] Allergies As of Date: 07/16/2018 Noted Allergy Reaction AUGMENTIN (AMOXICILLIN-POT CLAVUL*05/08/2018 8 - GI Upset Comments: Unable to tolerate due to GI side effects LATEX 05/26/2009 2 - Rash Date Reviewed: 07/16/2018 Reviewed by: Demetrius Greenwood CAMERA SYSTEMS ENGINEER - Fully Assessed Reason for Visit: Post [...] ENEMA W/AIR Observed: 07/09/2018 Status: F Source: [place] CONTRAST 9:13 AM [facility] REPOSITORY [facility] Imaging Services [address] [place] [address] Barium Enema w/Air Contrast MR#: [id number] Acct: [id number] Name: SHADIA TURNER Rep #: [id number] : 1940 F 78 From: Dominic Haywood MD PCP: Miguel Dominguez MD Status: REG CLI Study: Barium Enema w/Air Contrast Date of Exam: 07/09/18 Exam# [id number] Ordering Dr: Neo Malik MD STUDY: BARIUM [...] Dominic Haywood MD at 10:19 EST Tel [phone], Service support , CC: Miguel Dominguez MD; Neo Malik MD Aircraft Magneto Mechanic: Signed NURSING PROG Observed: 07/09/2018 Status: COMPLETED Source: [place] 8:30 AM [facility] REPOSITORY [facility]NO ID: [id number] Author: Sri Cordova RN Service: (none) Author Type: Registered Nurse Type: Nursing Progress Note Filed: 07/09/2018 8:32 AM Note Text: Patient did not experience a fall prior to discharge. Patient did not experience a burn prior to discharge. Sri Cordova RN NURSING PROG Observed: 07/09/2018 Status: COMPLETED Source: [place] 8:16 AM [facility] REPOSITORY [facility]NO ID: [id number] Author: Sri Cordova RN Service: (none) Author Type: Registered Nurse Type: Nursing Progress Note Filed: 07/09/2018 8:17 AM Note Text: Pt to be at hospital at 0900 for barium enema. Pt to remain NPO. Patient, and daughter verbalize understanding. Sri Cordova RN PT ED Observed: 07/09/2018 Status: COMPLETED Source: [place] 8:05 AM [facility] REPOSITORY [facility]NO ID: [id number] Author: Sri AguiarRn) GRABIEL Cordova Service: (none) [...] NURSING PROG Observed: 07/09/2018 Status: COMPLETED Source: [place] 8:04 AM [facility] REPOSITORY [facility]NO ID: [id number] Author: Sri AguiarRn) GRABIEL Cordova Service: (none) Author Type: Registered Nurse Type: Nursing Progress Note Filed: 07/09/2018 8:04 AM Note Text: Dr. Malik at bedside and spoke patient, and daughter. Pt to have barium enema today if possible. Sri Cordova RN NURSING PROG Observed: 07/09/2018 Status: COMPLETED Source: [place] 7:50 AM [facility] REPOSITORY HNO ID: [id number] Author: Chel AguiarRnRashida Lainez RN Service: Nursing Author Type: Registered Nurse Type: Nursing Progress Note Filed: 07/09/2018 7:51 AM Note Text: Patient did not experience a fall within the Intraoperative area. Patient did not experience a burn within the Intraoperative area. Chel Lainez RN HISTORY PHYSICAL Observed: 07/09/2018 Status: COMPLETED Source: [place] 7:11 AM [facility] REPOSITORY [facility]NO ID: [id number] Author: Neo Malik Service: General Surgery Author [...] as CT scan. Urine results reviewed in [facility], positive for occult blood as well as [...] underwent lysis of adhesions in conjunction with CONVEYANCER procedure in 2014. ? ? We obtained [...] ? ? - COLONOSCOP W/ OR W/O [facility] SPEC ? ? ? 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 Social History Main Topics Smoking [...] NURSING PROG Observed: 07/09/2018 Status: COMPLETED Source: [place] 7:08 AM [facility] REPOSITORY [facility]NO ID: [id number] Author: Sri AguiarRn) GRABIEL Cordova Service: (none) [...] PT ED Observed: 07/09/2018 Status: COMPLETED Source: [place] 6:39 AM [facility] REPOSITORY [facility]NO ID: [id number] Author: Sri Cordova RN Service: (none) Author [...] LIMITATIONS AFFECTING LEARNING: None Electronically Signed By: Sir Cordova RN In Department: AMBULATORY SURGERY PROGRESS Observed: 05/29/2018 Status: COMPLETED Source: [place] 9:39 AM [facility] REPOSITORY HNO ID: [id number] Author: Neo Malik Service: (none) Author Type: [...] as CT scan. [facility], positive for occult blood as well as [...] underwent lysis of adhesions in conjunction with CONVEYANCER procedure in 2014. We obtained a CT scan of the abdomen and pelvis. This demonstated mild diverticulitis in the descending colon/proximal sigmoid. 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 Designated Research Program Coordinator on the Day of Your Exam A responsible family member or friend MUST come with you to your colonoscopy and REMAIN in the endoscopy area until you are discharged. You are NOT ALLOWED to drive, take a taxi or bus, or leave the Endoscopy Center ALONE. If you do not have a responsible regional company flatbed truck driver (family member or friend) with you [...] carbonated beverages such as sydnie ingrid or lemon-burns paiute soda; Gatorade or other sports drinks (not [...] as CT scan. [facility], positive for occult blood as well as [...] underwent lysis of adhesions in conjunction with CONVEYANCER procedure in 2014. We obtained a CT scan of the abdomen and pelvis. This demonstated mild diverticulitis in the descending colon/proximal sigmoid. 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 Refer to printed prep instructions from your doctor.Disp: 1 BottleRfl: 0 COLONOSCOPY - DIAGNOSTIC [3406544] Order #: [id number] FUTURE MINDA PT ED DIGESTIVE DISEASES [8461601] Order #: [id number]. #:[id number]: 1 Prescriptions as of 05/28/2018 Sig: PEG [...] until the day before your colonoscopy. Designated Research Program Coordinator on the Day of Your Exam A responsible family member or friend MUST come with you to your colonoscopy and REMAIN in the endoscopy area until you are discharged. You are NOT ALLOWED to drive, take a taxi or bus, or leave the Endoscopy Center ALONE. If you do not have a responsible regional company flatbed truck driver (family member or friend) with you [...] carbonated beverages such as sydnie ingrid or lemon-burns paiute soda; Gatorade or other sports drinks (not [...] 05/29/18 HOSP Observed: 05/28/2018 Status: COMPLETED Source: [place] 12:00 AM [facility] REPOSITORY Patient:Shadia Turner MRN: <[id number]> Height:5' .8(1.544 m) Weight:No patient weight recorded [...] days YOLANDE Observed: 05/17/2018 Status: COMPLETED Source: [place] 12:00 AM [facility] REPOSITORY [facility] SHADIA TURNER ([id number]) 1940 F Date Time Provider Department 05/17/18 [facility]O [facility]IK [facility] During your visit today, we recorded the following information about you: Odalis Vinay Pss 05/17/2018 9:00 AM Signed Pt called to let Dr. Malik know that she had her CT on 05/15 and will have the results faxed to Dr. Malik. Francie Holley LPN 05/17/2018 9:11 AM Signed Patient called [facility] and they will not fax the results without a request from our office, I let her know we could access them from [facility]. Francie Harris LPN 05/17/2018 9:30 AM Signed Printed for review. Rebecca Harris LPN 05/21/2018 7:[address] Malik, Ct shows mild diverticulitis, will review films at [facility]. Rebecca Harris LPN 05/21/2018 1:34 PM Signed [...] ABDOMEN/PELVIS WITH Observed: 05/15/2018 Status: F Source: [place] CONTR[place] 12:56 PM [facility] REPOSITORY [facility] Imaging Services [address] [place] [address] Abdomen/Pelvis WITH Contrast MR#: [id number] Acct: [id number] Name: SHADIA TURNER Rep #: [id number] : 1940 F 77 From: Dominic Haywood MD PCP: Miguel Dominguez MD Status: REG CLI Study: Abdomen/Pelvis WITH Contrast Date of Exam: 05/15/18 Exam# [id number] Ordering Dr: Miguel Dominguez MD STUDY: CT [...] Dominic Haywood MD at 13:49 EDT Tel [phone], Service support , CC: Miguel Dominguez MD Aircraft Magneto Mechanic: Signed CNPN Observed: 05/07/2018 Status: COMPLETED Source: [place] 12:00 AM [facility] REPOSITORY Telephone (GENSWS) SHADIA TURNER ([id number]) 1940 F Date Time Provider Department 05/07/18 [...] make sure she is staying on a hog tender more clear liquid diet and jello which [...] 05/10/18 PROGRESS Observed: 05/03/2018 Status: COMPLETED Source: [place] 2:07 PM [facility] REPOSITORY [facility] ID: [id number] Author: Hyacinth Iyer (Pa) Service: (none) Author Type: Physician Cementing Bulk Material Operator Type: Progress Notes Filed: 05/03/2018 4:58 PM [...] as CT scan. [facility], positive for occult blood as well as [...] underwent lysis of adhesions in conjunction with CONVEYANCER procedure in 2014. Past medical history significant for osteoporosis. Patient states she maintains an active lifestyle and enjoys overall good health. Denies cardiac or pulmonary issues, and denies problems with sedation in the past. 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 SAVANAH Abebe Observed: 05/03/2018 Status: COMPLETED Source: [place] 1:30 PM [facility] REPOSITORY Office Visit (GENSWS) SHADIA TURNER ([id number]) 1940 F Date Time Provider Department 05/03/18 [...] screening? 2016 Last Colonoscopy: YEARS AGO Rebecca Iyer PA-C 05/03/2018 4:58 PM Signed HISTORY AND [...] as CT scan. [facility], positive for occult blood as well as [...] underwent lysis of adhesions in conjunction with CONVEYANCER procedure in 2014. Past medical history significant for osteoporosis. Patient states she maintains an active lifestyle and enjoys overall good health. Denies cardiac or pulmonary issues, and denies problems with sedation in the past. 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 SAVANAH Abebe PA-C 05/03/2018 2:10 PM Addendum -Begin Augmentin -Follow up with Dr. Malik after CT scan -Plan for delayed colonoscopy once acute inflammation resolved Referring Provider: MIGUEL DOMINGUEZ [[id number]] Allergies As of Date: 05/03/2018 Noted Allergy [...] 04/29/2018 Status: F Source: [place] 12:44 PM [facility] REPOSITORY Order Comment: How was Urine [...] URINE SEEN Performed By: #### L400.0001 #### [facility] [address] [place], [address] ERYTHROCYTE SED RATE Collected: 04/29/2018 Status: F Source: TUR[place] 12:44 PM [facility] REPOSITORY TYPE CODE TESTS RESULT OUT OF RANGE REFERENCE UNITS LAB L102.0000 0-30 mm/hr Normal SED RATE 16 Performed By: #### L101.9900, L100.0100 #### [facility] [address] [place], [address] CBC W/DIFF, AUTOMATED Collected: 04/29/2018 Status: F Source: [place] 12:44 PM [facility] REPOSITORY TYPE CODE TESTS RESULT OUT [...] 2.09 Performed By: #### L101.9900, L100.0100 #### [facility] [address] [facility] [place], [address] PTHIN Collected: 04/29/2018 Status: F Source: [place] 12:44 PM [facility] REPOSITORY TYPE CODE TESTS RESULT OUT OF RANGE REFERENCE UNITS LAB L509.1000 18.4-80.1 pg/mL Normal PTHIN 48.4 Performed By: #### L509.1000 #### [facility] [address] [facility] [place], [address] COMPREHENSIVE METABOLIC Collected: 04/29/2018 Status: F Source: [facility] 12:44 PM [facility] REPOSITORY TYPE CODE TESTS RESULT OUT [...] Performed By: #### L500.4050, L501.6710, L501.9520 #### [facility] [address] [facility] [place], [place], [address] CRP Collected: 04/29/2018 Status: F Source: TURNEY 12:44 PM [facility] REPOSITORY TYPE CODE TESTS RESULT OUT OF RANGE REFERENCE UNITS LAB L501.6710 0.0-3.0 mg/L High 53.60 C-REACTIVE PROT Result Comment: C-Reactive Protein (CRP) provides useful information for the diagnosis, therapy and monitoring of inflammatory processes and associated diseases. For the evaluation of Relative Risk for Cardiovascular Disease, a High Sensitivity CRP (HSCRP) should be ordered. Performed By: #### L500.4050, L501.6710, L501.9520 #### [facility] [address] [facility] [place], [place], [id number] THYROID STIM HORMONE Collected: 04/29/2018 Status: F Source: TURNEY (TSH) 12:44 PM [facility] REPOSITORY TYPE CODE TESTS RESULT OUT OF RANGE REFERENCE UNITS LAB L501.9520 0.358-3.74 uIU/mL Normal TSH 3.48 Performed By: #### L500.4050, L501.6710, L501.9520 #### [facility] [address] [place], [address] Observed: 04/29/2018 Status: F Source: [place] CULTURE, URINE 12:44 PM [facility] REPOSITORY Urine Culture ORGANISM 1: Mixed Gram Positive Organisms Winnie Count 80,000-100,000 MIX CULTURE Mixed contaminants. Submit a new specimen if indicated. Performed By: #### M100.0650 #### [facility] [address] [facility] [place], [address] URINALYSIS, COMPLETE Collected: 04/29/2018 Status: F Source: [place] 11:00 AM [facility] REPOSITORY Order Comment: How was Urine [...] URINE SEEN Performed By: #### L400.0001 #### [facility] [address] [place], [address] Observed: 04/29/2018 Status: F Source: [place] CULTURE, URINE 11:00 AM [facility] REPOSITORY Urine Culture ORGANISM 1: Mixed Gram Positive Organisms Winnie Count 80,000-100,000 MIX CULTURE Mixed contaminants. Submit a new specimen if indicated. Performed By: #### M100.0650 #### [facility] [address] [place], [address] ALLERGIES ALLERGIES DATE TYPE / CODE NAME / CODE REACTION SEVERITY SOURCE 08/22/2018 Drug clavulanic Diarrhea Unknown [place] Allergy/416 acid/[id number]([facility] 145688([facility] ED CT) Repository 08/22/2018 Drug adhesive/[id number] Rash Unknown [place] Allergy/416 5(RXNORM) Community 191789([facility] ED CT) Repository 08/22/2018 Drug amoxicillin/[id number] Diarrhea Unknown [place] Allergy/416 3675(RXNORM) Community 344441([facility] ED CT) Repository 08/22/2018 Drug latex/[id number](R Rash Unknown [place] Allergy/416 XNORM) Community 812994([facility] ED CT) Repository 05/08/2018 DRUG/151364 AMOXICILLIN-POT GI UPSET [facility] 003(SNOMED CLAVULANATE [place] CT) Repository 05/26/2009 DRUG LATEX RASH [facility] INGREDI/419 [address] [place] 978885([facility] ED CT) ENCOUNTERS ENCOUNTERS ADMIT/DISCHARGE ACCOUNT ADMITTING ENCOUNTER LOCATION SOURCE NUMBER CLASS 09/19/2018 [id number] Megan Ambulatory [facility] ing:SDC Repository 09/12/2018 [id number] Ambulatory [facility] ing:OPBI Repository 09/06/2018/09/09/19 [id number] Ambulatory [place] [facility] Repository 08/29/2018/08/29/20 [id number] Ambulatory [address] Repository 08/24/2018/08/26/20 [id number] [place] ing:VA6Lmkr: Repository [id number]: 1 08/20/2018/08/20/[id number] ing:EN Repository 08/14/2018 [id number] Ambulatory [facility] Repository 08/06/2018/08/08/20 [id number] Ambulatory [address] Repository 07/16/2018/07/19/20 [id number] Ambulatory [address] Repository 07/09/2018 [id number] [facility] ing:RAD Repository 07/09/2018/07/09/20 [id number] MEGAN, Ambulatory [address] Repository 05/28/2018/05/29/20 [id number] Ambulatory [address] Repository 05/15/2018 [id number] [facility] ing:CT Repository 05/03/2018/05/07/20 [id number] Ambulatory [address] Repository 04/29/2018 [id number] [facility] ing:LABSPEC Repository 04/29/2018 [id number] [facility] ing:MTRAD Repository PAYERS PAYERS ENCOUNTER GUARANTOR PAYER SUBSCRIBER SOURCE 09/19/2018 OLIVIA TURNER777 Primary SHADIA L Lorenzo FILOMENA [place]STER, Insurance:HUMANA KEENERDOB: [facility] [address]Ndq: MEDICARE [facility] [id number] Hospital Number: Repository () [id number] Date:[id number] [address]PK: 09/19/2018 Secondary NOT GIVENUNK [place] Insurance:SELF PAY [facility] Number: Effective Repository Date:2018-08-07 09/12/2018 OLIVIA TURNER777 Primary SHADIA L [place] FILOMENA WSTER, Insurance:HUMANA KEENERDOB: [facility] [address]Qyt: MEDICARE [facility] [id number] Hospital Number: Repository () [id number] Date:3706-16-85TR [address] [place] [id number]: 09/12/2018 Secondary NOT GIVENUNK [place] Insurance:SELF PAY [facility] Number: Effective Repository Date:2018 08/24/2018 OLIVIA Juarez [id number] Primary SHADIA L [place] FILOMENA [place], Insurance:HUMANA KEENERDOB: [place] [address]Fwj: MEDICARE [facility] [id number] Hospital Number: Repository () [id number] Date:0165-21-34HV [address] [address]GN: 08/24/2018 Secondary NOT GIVENUNK [place] Insurance:SELF PAY [facility] Number: Effective Repository Date:2018-08-22 08/20/2018 OLIVIA Juarez [id number] Primary SHADIA L Lorenzo [facility] Insurance:HUMANA KEENERDOB: [facility] [place] [address]Bol: MEDICARE PPOPolicy [id number] Hospital Number: Repository () [id number] Date:[id number] [address] [address]LD: 08/20/2018 Secondary NOT GIVENUNK [place] Insurance:SELF PAY [facility] Number: Effective Repository Date:2018-08-07 08/14/2018 OLIVIA TURNER777 Primary SHADIA L [place] FILOMENA [place], Insurance:HUMANA KEENERDOB: [facility] [place] [address]Ici: MEDICARE PPOPolicy [id number] Hospital Number: Repository () [id number] Date:4863-25-94BM [address] [address]LS: 08/14/2018 Secondary NOT GIVENUNK [place] Insurance:SELF PAY [facility] Number: Effective Repository Date:2018-08-14 07/09/2018 OLIVIA Juarez [id number] Primary SHADIA L [place] FILOMENA [place], Insurance:HUMANA KEENERDOB: [facility] [place] [address]Odb: MEDICARE PPOPolicy [id number] Hospital Number: Repository () [id number] Date:[id number] [address] [place] [id number]: 07/09/2018 Secondary NOT GIVENUNK [place] Insurance:SELF PAY [facility] Number: Effective Repository Date:2018-07-09 05/15/2018 Olivia Juarez [id number] Primary SHADIA L [place] [facility] Insurance:HUMANA KEENERDOB: [facility] [place] [address]Epf: MEDICARE PPOPolicy [id number] Hospital Number: Repository () [id number] Date:0525-09-59JI [address] [place] [id number]: 05/15/2018 Secondary NOT GIVENUNK [place] Insurance:SELF PAY [facility] Number: Effective Repository Date:2018-05-14 04/29/2018 Olivia Turner777 Primary SHADIA L [place] [facility] Insurance:HUMANA KEENERDOB: [facility] [place] [address]Lsw: MEDICARE PPOPolicy [id number] Hospital Number: Repository () [id number] Date:2770-40-06HH [address] [place] [id number]: 04/29/2018 Secondary NOT GIVENUNK [place] Insurance:SELF PAY [facility] Number: Effective Repository Date:2018-04-29 04/29/2018 Olivia Turner777 Primary SHADIA L [place] [facility], Insurance:HUMANA KEENERDOB: [facility] [place] [address]Zec: MEDICARE PPOPolicy [id number] Hospital Number: Repository () [id number] Date:5000-51-09YA [address] [place] [id number]: 04/29/2018 Secondary NOT GIVENUNK [place] Insurance:SELF PAY [facility]: Effective Repository Date:2018-04-29
== END ==
PROVIDERS: Family Provider Family Medicine; PCP Family Medicine; Referring Provider Surgery; Visit Provider Surgery
DX: Z01.818 Encounter for other preprocedural examination (principal)
CPT/HCPCS: 93005; J7050; J7120

== ENCOUNTER 2018-10-23 05:42 | Inpatient (IN) | payer MEDICARE, SELFPAY ==
[2018-08-23 02:19] VITALS: BMI 26.1
--- NOTE | 2018-10-07 18:00 | HP.PCM_ITS ---
History and Physical Date of Admission: 10/23/18 HISTORY AND PHYSICAL - COLON RESECTION FOR RECURRENT DIVERTICULITIS ? Shadia Turner 1940 October 07, 2018 ? REFERRING PHYSICIAN: ??Doroteo Dominguez MD ? CHIEF COMPLAINT: ?LLQ Pain ? HPI: The patient is a 78 year old female with a complaint of recurrent left lower quadrant pain. ? ? Shadia notes a 6-month history of abdominal complaints. ?She notes a pressure sensation and discomfort in her left lower abdomen intermittently, does not radiate, varies in intensity-states currently /. ?Notes pressure with having a bowel movement and feels that she passes air when she urinates. ?Notes recently when wiping after urination she sees stool on the paper. ?Denies frequent UTIs. ?She does note a recent history of low-grade fever-100.5. ?Was evaluated by her PCP who ordered UA and bloodwork as well as CT scan. ?Urine results reviewed in [facility], positive for occult blood as well as mixed gram positive organisms. ?CBC was within normal limits. ? Shadia has undergone prior endoscopy, thinks this was in 2007, by Dr. Lee. ?She denies a history of polyps. ??Denies family history of colon cancer. ??Patient states that in the past she had episodes suspected to be diverticulitis not formally diagnosed. 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 ? ? We obtained a CT scan of the abdomen and pelvis. ?This demonstated mild diverticulitis in the descending colon/proximal sigmoid. There was no colon approximate to the bladder, no bladder thickening and no air in the bladder ? ?I performed lower endoscopy on July 09, 2018. ?The patient was found to have significant tortuosity and diverticulosis which may be concerned for blindly try and advance the scope through the segment through the risk of injury. ?Endoscopy was aborted. ?Endoscopically there were no visualized area suspicious for malignancy. ? A follow-up barium enema was obtained. ?This demonstrated diverticulosis in the left hemicolon. ?There was also noted to be a focal area of narrowing with overhanging edges in the midportion of the sigmoid colon. ?It was listed as a neoplastic process should be ruled out and that there was no evidence obstruction. ?Reviewing the barium enema in concert with the CT scan I do see wh at Dr. Haywood is noting. ?I agree this is most likely a diverticular narrowing segment but also agree that I cannot rule out a malignancy in this area. ? She returns now with plans to repeat a colonoscopy and if I am unable to get past the area of concern and prove this is nonsignificant then would plan for laparoscopic sigmoid resection the following day ? We had planned to attempt colonoscopy to get beyond the area of concern and if this failed proceed with sigmoid resection the following day. ? The patient underwent colonoscopy on August 20 and with effort I was able to get beyond the area of redundancy and get all around the base of the cecum. ?Interestingly, there appeared to be some pressure blood in the cecum likely felt to be from the upper GI track which was very isolated in that there was no blood noted in the terminal ileum and no blood beyond the hepatic flexure. ?A cecal biopsy was performed. ?Following this upper endoscopy was performed which demonstrated some mild erosive gastritis with small amounts of blood adherent to the stomach but no larger or more specific ulcerations and some fundic gland polyps. ? Pathology returned as: ?? ? MICROSCOPIC DIAGNOSIS A. ?Cecum, biopsy: ?Colonic mucosa with no significant pathologic change. B. ?Gastric antrum, biopsy: ?Mild chronic inflammation. C. ?Gastric fundus, biopsy: ?Fundic gland polyp. ? ? A postprocedure KUB and then chest x-ray were obtained given the challenges of proceeding beyond the area of redundancy that prevented endoscopy the first time. ?This was initially interpreted as no specific abnormalities. ?Later that night over read by the radiologist demonstrated what was questionable free air. ?The patient was contacted and had no abdominal complaints that night or the following day. ? 2 days post-endoscopy, the patient noted worsening left lower quadrant pain. ?She was admitted to [facility]. ?CT scan did demonstrate a small to moderate amount of free air but was not now looked like recurrent diverticulitis in the proximal sigmoid colon area. ?The patient was given IV antibiotics had resolution of her mildly elevated white blood cell count and fever and was discharged to home on August 26 on oral antibiotics. ? The patient initially noted some nausea while taking the antibiotics but if she took this with Lactaid milk was doing better. ?The patient and her family note that she is tolerating a low residue diet. ?August 29, she has some left lower quadrant pain but otherwise minimal pain. ? She returns now having completed her antibiotics. ?Her bowel habits are returning towards normal. ?She denies any significant pain fever or other difficulties. ? ? ? PAST MEDICAL HISTORY PAST MEDICAL HISTORY Diagnosis Date ? Asthma ? ? as a child ? Osteoporosis ? ? Snoring ? ? ? PAST SURGICAL HISTORY PAST SURGICAL HISTORY Procedure Laterality Date ? APPENDECTOMY ? ? ? COLONOSCOP W/ OR W/O BRSH SPEC ? ? ? Colonoscopy ? COLONOSCOP W/ OR W/O BRSH SPEC ? 07/09/2018 ? Colonoscopy ? COLONOSCOP W/ OR W/O BRSH SPEC ? 08/20/2018 ? Colonoscopy ? EGD W/O OR W/BRUSH/WASH ? 08/20/2018 ? EGD ? LAP, SURG ENTEROLYSIS ? 02/22/15 ? intraoperative for Dr. Wharton ? LIGATE FALLOPIAN TUBE ? ? ? PAST SURGICAL HISTORY OF ? 10/2006 ? right foot surgery ? PAST SURGICAL HISTORY OF ? 06/11 ? left foot surgery ? ? CURRENT MEDICATIONS ? Current Outpatient Prescriptions: neomycin 500 mg tablet Take 2 tablets by mouth four times daily. 2 TABLETS AT 6, 8 ,AND 10 PM Disp: 6 tablet Rfl: 0 metroNIDAZOLE (FLAGYL) 500 mg tablet Take 1 tablet by mouth three times daily. 2 TABLETS AT 6, 8, AND 10 PM Disp: 6 tablet Rfl: 0 peg 3350-Electrolytes (GOLYTELY) 236-22.74-6.74 -5.86 gram suspension Take 4,000 mL by mouth one time only for 1 dose. Disp: 1 Bottle Rfl: 0 ciprofloxacin HCl (CIPRO) 500 mg tablet Take 500 mg by mouth twice daily. Disp: Rfl: omeprazole magnesium (PRILOSEC ORAL) Take by mouth once daily. Disp: Rfl: neomycin 500 mg tablet Take 2 tablets by mouth four times daily. 2 TABLETS AT 6, 8 ,AND 10 PM (Patient not taking: Reported on 08/29/2018 ) Disp: 6 tablet Rfl: 0 metroNIDAZOLE (FLAGYL) 500 mg tablet Take 1 tablet by mouth three times daily. 2 TABLETS AT 6, 8, AND 10 PM Disp: 6 tablet Rfl: 0 gabapentin (NEURONTIN) 100 mg capsule TAKE 1 CAPSULE BY MOUTH THREE TIMES DAILY WITH A MEAL...AND 3 CAPSULES AT BEDTIME Disp: Rfl: 0 magnesium oxide 200 mg magnesium tab Take by mouth. Disp: Rfl: aspirin, enteric coated (ASPIRIN, ENTERIC COATED) 81 mg EC tablet Take 81 mg by mouth once daily. Disp: Rfl: ERGOCALCIFEROL, VITAMIN D2, (VITAMIN D ORAL) Take ?by mouth. Disp: Rfl: CALCIUM 500 MG TAB Take one(1) tablet twice daily. w/ vit D Disp: Rfl: 0 MULTIVITAMIN TAB Take one(1) tablet daily. Disp: Rfl: 0 ? No current facility-administered medications for this visit. ? ALLERGIES: Augmentin [Amoxicillin-Pot Clavulanate]; Latex ? PERSONAL HISTORY: SOCIAL HISTORY Social History ??Marital status: ?Spouse name: Shin ?Years of education: ?Number of children: 4 ? Occupational History Occupation ?Employer ?Comment ? retired ?[employer]ANT [employer] Retired ? Social History Main Topics ??Smoking status: Never Smoker ?Smokeless tobacco: Never Used ?Alcohol use: No ?Drug use: No ?Sexual activity: Yes ?Partners with: Male ? control/protection: Tubal Ligation ?Comment: Postmenopausal ? ? FAMILY HISTORY: FAMILY HISTORY FAMILY HISTORY Problem Relation Age of Onset ? Hypertension Mother ? ? Osteoporosis Mother ? ? other (Dementia) Mother ? ? other (lung cancer) Father ?smoker ? REVIEW OF SYMPTOMS: ??The review of systems data was entered by the nurse and reviewed by me ? There are no exam notes on file for this visit. ? Demetrius Schuster LPN ?08/06/2018 ?1:40 PM ?Signed REVIEW OF SYSTEMS: ?General:???The patient denies fatigue, denies weight loss, denies weight gain, denies feeling hot, and denies feelings of cold. ?Eyes: ?The patient denies glaucoma, denies eye injury/surgery, does not wear glasses or contacts. ?Ear/Nose/Throat: ?The patient denies allergies, NOTES hayfever, denies ear infections, and denies bloody noses. ?Cardiovascular: ?The patient denies chest pain, denies heart disease, denies high blood pressure,denies cardiac stent, denies prior heart attack, denies irregular heart beat, denies high cholesterol, ?denies poor circulation, denies heart failure, other cardiac issues, denies claudication, denies cold feet, denies peripheral arterial stent. ?Respiratory: ?The patient denies tuberculosis, denies pneumonia, denies frequent cough, denies pulmonary embolism, denies shortness of breath, and denies coughing up blood. ?Gastrointestinal: ?The patient denies difficulty swallowing, denies acid reflux, denies ulcers, denies vomiting, denies jaundice/hepatitis, denies gallbladder problems, denies black or tarry stools, denies hemorrhoids, denies bleeding from rectum, denies diverticulitis, denies constipation, denies diarrhea, NOTES loss of stool control, and denies hernias. ?Kidney/Bladder: ?The patient denies kidney stones, denies urine infections, and denies bloody urine. ?Skin: ?The patient denies a history of skin cancer, denies blee ding/changing moles, and denies a history of skin rash. ?Neurologic: ?The patient denies a history of epilepsy/convulsions, denies headaches, denies head/spinal injuries, and denies stroke/TIA. ?Psychiatric: ?The patient denies psychiatric medications, denies depression, and denies voices, denies substance abuse. ?Endocrine: ?The patient denies thyroid disorders, denies diabetes, and d enies hormonal problems. ?Hematologic: ?The patient denies a history of bruising, denies bleeding, and denies anemia, denies blood clots. ?Infections: ?The patient denies a history of measles and mumps, denies rheumatic fever, and denies sexually transmitted diseases. ?Musculoskeletal: ?The patient denies back pain/injury, denies back problems, denies sciatica, denies knee/foot trouble, denies arthritis, or denies gout. ? ? ? PHYSICAL EXAMINATION: ? General: ?The patient is 78 year old female, well nourished, well hydrated in no acute distress. ?The patient is oriented to time, place, and person. ? VITALS: BP 138/66 ? Pulse 60 ? Temp 36.6 ?C (97.9 ?F) (Temporal Artery) ? Resp 18 ? Wt 59 kg (130 lb) ? BMI 24.73 kg/m? ?Body mass index is 24.73 kg/m?.? ? HEENT: ?Normal cephalic, ataumatic, pupils are equally round, sclera are anicteric, mucous membranes are moist, oropharynx is clear. ?Neck has no masses, asymmetry or lymphadenopathy. ?Thyroid is unremarkable. ? Respiratory: ?Clear to auscultation and percussion. ?Normal respiratory excursion and pattern. ? Cardiac: ?Examination is regular rate and rhythm. ? Abdominal exam: ?Soft, nontender, ?with no palpable masses. ?No hepatosplenomegaly. ?No palpable hernias. ? Rectal exam: ?exam deferred ? Extremities: ?no clubbing, cyanosis or edema. ?No adenopathy. ? LABORATORY VALUES: As Noted ? RADIOLOGIC STUDIES: ?As Noted ? Assessment ? IMPRESSION: Recurring diverticulitis as noted above ? PLAN: ? We extensively discussed the diagnosis and discussed the surgical options. ??The patient has elected to undergo colon resection ? I plan to perform a Laparoscopic Low Anterior Resection - [id number]. ?The planned surgical procedure was discussed extensively with the patient. ?The risks, benefits, anticipated outcomes and possible complications and alternatives were discussed. ?My staff has also explained the procedure in understandable terms and the patient was given the option to take printed material concerning the planned procedure. ?The patient had the opportunity to ask questions concerning the planned procedure. ?The patient freely consents to the planned procedure. ?? ? I will plan for outpatient bowel preparation including mechanical and antibiotic preparation including Neomycin and Flagyl 1gm each at 6,8, and 10pm the night before surgery. ? Diagnoses: (K57.92) Diverticulitis ?(primary encounter diagnosis) ? A letter was sent to Dr. Doroteo Dominguez MD?indicating the above finding for this patient. ? Return to Clinic: The patient is instructed to follow-up with me 1 week post operatively. ? Yoel Guzman MD
--- NOTE | 2018-10-10 08:29 | HP.PCM_ITS ---
History and Physical Date of Admission: 10/23/18 HISTORY AND PHYSICAL - COLON RESECTION FOR RECURRENT DIVERTICULITIS ? Shadia Turner 1940 October 07, 2018 ? REFERRING PHYSICIAN: ??Doroteo Dominguez MD ? CHIEF COMPLAINT: ?LLQ Pain ? HPI: The patient is a 78 year old female with a complaint of recurrent left lower quadrant pain. ? ? Shadia notes a 6-month history of abdominal complaints. ?She notes a pressure sensation and discomfort in her left lower abdomen intermittently, does not radiate, varies in intensity-states currently /. ?Notes pressure with having a bowel movement and feels that she passes air when she urinates. ?Notes recently when wiping after urination she sees stool on the paper. ?Denies frequent UTIs. ?She does note a recent history of low-grade fever-100.5. ?Was evaluated by her PCP who ordered UA and bloodwork as well as CT scan. ?Urine results reviewed in [facility], positive for occult blood as well as mixed gram positive organisms. ?CBC was within normal limits. ? Shadia has undergone prior endoscopy, thinks this was in 2007, by Dr. Lee. ?She denies a history of polyps. ??Denies family history of colon cancer. ??Patient states that in the past she had episodes suspected to be diverticulitis not formally diagnosed. ?She had previously had ?episodes of lower abdominal pain and underwent lysis of adhesions in conjunction with INTERNAL AUDITOR procedure in 2014. ? ? We obtained a CT scan of the abdomen and pelvis. ?This demonstated mild diverticulitis in the descending colon/proximal sigmoid. There was no colon approximate to the bladder, no bladder thickening and no air in the bladder ? ?I performed lower endoscopy on July 09, 2018. ?The patient was found to have significant tortuosity and diverticulosis which may be concerned for blindly try and advance the scope through the segment through the risk of injury. ?Endoscopy was aborted. ?Endoscopically there were no visualized area suspicious for malignancy. ? A follow-up barium enema was obtained. ?This demonstrated diverticulosis in the left hemicolon. ?There was also noted to be a focal area of narrowing with overhanging edges in the midportion of the sigmoid colon. ?It was listed as a neoplastic process should be ruled out and that there was no evidence obstruction. ?Reviewing the barium enema in concert with the CT scan I do see wh at Dr. Haywood is noting. ?I agree this is most likely a diverticular narrowing segment but also agree that I cannot rule out a malignancy in this area. ? She returns now with plans to repeat a colonoscopy and if I am unable to get past the area of concern and prove this is nonsignificant then would plan for laparoscopic sigmoid resection the following day ? We had planned to attempt colonoscopy to get beyond the area of concern and if this failed proceed with sigmoid resection the following day. ? The patient underwent colonoscopy on August 20 and with effort I was able to get beyond the area of redundancy and get all around the base of the cecum. ?Interestingly, there appeared to be some pressure blood in the cecum likely felt to be from the upper GI track which was very isolated in that there was no blood noted in the terminal ileum and no blood beyond the hepatic flexure. ?A cecal biopsy was performed. ?Following this upper endoscopy was performed which demonstrated some mild erosive gastritis with small amounts of blood adherent to the stomach but no larger or more specific ulcerations and some fundic gland polyps. ? Pathology returned as: ?? ? MICROSCOPIC DIAGNOSIS A. ?Cecum, biopsy: ?Colonic mucosa with no significant pathologic change. B. ?Gastric antrum, biopsy: ?Mild chronic inflammation. C. ?Gastric fundus, biopsy: ?Fundic gland polyp. ? ? A postprocedure KUB and then chest x-ray were obtained given the challenges of proceeding beyond the area of redundancy that prevented endoscopy the first time. ?This was initially interpreted as no specific abnormalities. ?Later that night over read by the radiologist demonstrated what was questionable free air. ?The patient was contacted and had no abdominal complaints that night or the following day. ? 2 days post-endoscopy, the patient noted worsening left lower quadrant pain. ?She was admitted to [facility]. ?CT scan did demonstrate a small to moderate amount of free air but was not now looked like recurrent diverticulitis in the proximal sigmoid colon area. ?The patient was given IV antibiotics had resolution of her mildly elevated white blood cell count and fever and was discharged to home on August 26 on oral antibiotics. ? The patient initially noted some nausea while taking the antibiotics but if she took this with Lactaid milk was doing better. ?The patient and her family note that she is tolerating a low residue diet. ?August 29, she has some left lower quadrant pain but otherwise minimal pain. ? She returns now having completed her antibiotics. ?Her bowel habits are returning towards normal. ?She denies any significant pain fever or other difficulties. ? ? ? PAST?MEDICAL?HISTORY PAST MEDICAL HISTORY Diagnosis Date ? Asthma ? ? as a child ? Osteoporosis ? ? Snoring ? ? ? PAST?SURGICAL?HISTORY PAST SURGICAL HISTORY Procedure Laterality Date ? APPENDECTOMY ? ? ? COLONOSCOP W/ OR W/O BRSH SPEC ? ? ? Colonoscopy ? COLONOSCOP W/ OR W/O BRSH SPEC ? 07/09/2018 ? Colonoscopy ? COLONOSCOP W/ OR W/O BRSH SPEC ? 08/20/2018 ? Colonoscopy ? EGD W/O OR W/BRUSH/WASH ? 08/20/2018 ? EGD ? LAP, SURG ENTEROLYSIS ? 02/22/15 ? intraoperative for Dr. Wharton ? LIGATE FALLOPIAN TUBE ? ? ? PAST SURGICAL HISTORY OF ? 10/2006 ? right foot surgery ? PAST SURGICAL HISTORY OF ? 06/11 ? left foot surgery ? ? CURRENT?MEDICATIONS ? Current Outpatient Prescriptions: neomycin 500 mg tablet Take 2 tablets by mouth four times daily. 2 TABLETS AT 6, 8 ,AND 10 PM Disp: 6 tablet Rfl: 0 metroNIDAZOLE (FLAGYL) 500 mg tablet Take 1 tablet by mouth three times daily. 2 TABLETS AT 6, 8, AND 10 PM Disp: 6 tablet Rfl: 0 peg 3350-Electrolytes (GOLYTELY) 236-22.74-6.74 -5.86 gram suspension Take 4,000 mL by mouth one time only for 1 dose. Disp: 1 Bottle Rfl: 0 ciprofloxacin HCl (CIPRO) 500 mg tablet Take 500 mg by mouth twice daily. Disp: Rfl: omeprazole magnesium (PRILOSEC ORAL) Take by mouth once daily. Disp: Rfl: neomycin 500 mg tablet Take 2 tablets by mouth four times daily. 2 TABLETS AT 6, 8 ,AND 10 PM (Patient not taking: Reported on 08/29/2018 ) Disp: 6 tablet Rfl: 0 metroNIDAZOLE (FLAGYL) 500 mg tablet Take 1 tablet by mouth three times daily. 2 TABLETS AT 6, 8, AND 10 PM Disp: 6 tablet Rfl: 0 gabapentin (NEURONTIN) 100 mg capsule TAKE 1 CAPSULE BY MOUTH THREE TIMES DAILY WITH A MEAL...AND 3 CAPSULES AT BEDTIME Disp: Rfl: 0 magnesium oxide 200 mg magnesium tab Take by mouth. Disp: Rfl: aspirin, enteric coated (ASPIRIN, ENTERIC COATED) 81 mg EC tablet Take 81 mg by mouth once daily. Disp: Rfl: ERGOCALCIFEROL, VITAMIN D2, (VITAMIN D ORAL) Take ?by mouth. Disp: Rfl: CALCIUM 500 MG TAB Take one(1) tablet twice daily. w/ vit D Disp: Rfl: 0 MULTIVITAMIN TAB Take one(1) tablet daily. Disp: Rfl: 0 ? No current facility-administered medications for this visit. ? ALLERGIES: Augmentin [Amoxicillin-Pot Clavulanate]; Latex ? PERSONAL HISTORY: SOCIAL?HISTORY Social History ??Marital status: ?Spouse name: Shin ?Years of education: ?Number of children: 4 ? Occupational History Occupation ?Employer ?Comment ? 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 Social History Main Topics ??Smoking status: Never Smoker ?Smokeless tobacco: Never Used ?Alcohol use: No ?Drug use: No ?Sexual activity: Yes ?Partners with: Male ? control/protection: Tubal Ligation ?Comment: Postmenopausal ? ? FAMILY HISTORY: FAMILY?HISTORY FAMILY HISTORY Problem Relation Age of Onset ? Hypertension Mother ? ? Osteoporosis Mother ? ? other (Dementia) Mother ? ? other (lung cancer) Father ?smoker ? REVIEW OF SYMPTOMS: ??The review of systems data was entered by the nurse and reviewed by me ? There are no exam notes on file for this visit. ? Demetrius Schuster LPN ?08/06/2018 ?1:40 PM ?Signed REVIEW OF SYSTEMS: ?General:???The patient denies fatigue, denies weight loss, denies weight gain, denies feeling hot, and denies feelings of cold. ?Eyes: ?The patient denies glaucoma, denies eye injury/surgery, does not wear glasses or contacts. ?Ear/Nose/Throat: ?The patient denies allergies, NOTES hayfever, denies ear infections, and denies bloody noses. ?Cardiovascular: ?The patient denies chest pain, denies heart disease, denies high blood pressure,denies cardiac stent, denies prior heart attack, denies irregular heart beat, denies high cholesterol, ?denies poor circulation, denies heart failure, other cardiac issues, denies claudication, denies cold feet, denies peripheral arterial stent. ?Respiratory: ?The patient denies tuberculosis, denies pneumonia, denies frequent cough, denies pulmonary embolism, denies shortness of breath, and denies coughing up blood. ?Gastrointestinal: ?The patient denies difficulty swallowing, denies acid reflux, denies ulcers, denies vomiting, denies jaundice/hepatitis, denies gallbladder problems, denies black or tarry stools, denies hemorrhoids, denies bleeding from rectum, denies diverticulitis, denies constipation, denies diarrhea, NOTES loss of stool control, and denies hernias. ?Kidney/Bladder: ?The patient denies kidney stones, denies urine infections, and denies bloody urine. ?Skin: ?The patient denies a history of skin cancer, denies blee ding/changing moles, and denies a history of skin rash. ?Neurologic: ?The patient denies a history of epilepsy/convulsions, denies headaches, denies head/spinal injuries, and denies stroke/TIA. ?Psychiatric: ?The patient denies psychiatric medications, denies depression, and denies voices, denies substance abuse. ?Endocrine: ?The patient denies thyroid disorders, denies diabetes, and d enies hormonal problems. ?Hematologic: ?The patient denies a history of bruising, denies bleeding, and denies anemia, denies blood clots. ?Infections: ?The patient denies a history of measles and mumps, denies rheumatic fever, and denies sexually transmitted diseases. ?Musculoskeletal: ?The patient denies back pain/injury, denies back problems, denies sciatica, denies knee/foot trouble, denies arthritis, or denies gout. ? ? ? PHYSICAL EXAMINATION: ? General: ?The patient is 78 year old female, well nourished, well hydrated in no acute distress. ?The patient is oriented to time, place, and person. ? VITALS: BP 138/66 ? Pulse 60 ? Temp 36.6 ?C (97.9 ?F) (Temporal Artery) ? Resp 18 ? Wt 59 kg (130 lb) ? BMI 24.73 kg/m? ?Body mass index is 24.73 kg/m?.? ? HEENT: ?Normal cephalic, ataumatic, pupils are equally round, sclera are anicteric, mucous membranes are moist, oropharynx is clear. ?Neck has no masses, asymmetry or lymphadenopathy. ?Thyroid is unremarkable. ? Respiratory: ?Clear to auscultation and percussion. ?Normal respiratory excursion and pattern. ? Cardiac: ?Examination is regular rate and rhythm. ? Abdominal exam: ?Soft, nontender, ?with no palpable masses. ?No hepatosplenomegaly. ?No palpable hernias. ? Rectal exam: ?exam deferred ? Extremities: ?no clubbing, cyanosis or edema. ?No adenopathy. ? LABORATORY VALUES: As Noted ? RADIOLOGIC STUDIES: ?As Noted ? Assessment ? IMPRESSION: Recurring diverticulitis as noted above ? PLAN: ? We extensively discussed the diagnosis and discussed the surgical options. ??The patient has elected to undergo colon resection ? I plan to perform a Laparoscopic Low Anterior Resection - [id number]. ?The planned surgical procedure was discussed extensively with the patient. ?The risks, benefits, anticipated outcomes and possible complications and alternatives were discussed. ?My staff has also explained the procedure in understandable terms and the patient was given the option to take printed material concerning the planned procedure. ?The patient had the opportunity to ask questions concerning the planned procedure. ?The patient freely consents to the planned procedure. ?? ? I will plan for outpatient bowel preparation including mechanical and antibiotic preparation including Neomycin and Flagyl 1gm each at 6,8, and 10pm the night before surgery. ? Diagnoses: (K57.92) Diverticulitis ?(primary encounter diagnosis) ? A letter was sent to Dr. Doroteo Dominguez MD?indicating the above finding for this patient. ? Return to Clinic: The patient is instructed to follow-up with me 1 week post operatively. ? Yoel Guzman MD
[2018-10-16 10:18] VITALS: BP 132/65; PULSE 80; RESP 18; TEMP 37; O2SAT 94; BMI 25.1
[2018-10-16 14:23] LABS: Anion Gap 8 (5-15); BUN 16 mg/dL (7-18); BUN/Creat Ratio 15.7 RATIO (10-20); Calcium,Total 8.5 mg/dL (8.5-10.1); Chloride 109 mmol/L (98-107); Creatinine, Serum 1.02 mg/dL (0.55-1.02); EST Glomerular Filtration Rate 56 mL/min (>60); Est Glom Filt Rate - Afr Amer 67 mL/min (>60); Estimated Creatinine Clearance 32.65 ml/min; Glucose 81 mg/dL (74-106); Potassium 3.9 mmol/L (3.5-5.1); Sodium Level 144 mmol/L (136-145)
[2018-10-23] VITALS (15 sets, daily range): BP systolic 98–148; BP diastolic 59–85; PULSE 64–101; RESP 15–18; TEMP 36–37.3; O2SAT 90–100; BMI 25.1
--- NOTE | 2018-10-23 | COL_PTH ---
PATIENT: KAT WICK LOC: MS2 U#:[id number] AGE/SX: 78/F ROOM: MS215 RE10/23/[address]: Dr. Yoel Guzman MD : 1940 BED: 1 DIS: 10/25/2018 SPEC #: [id number] RECD: 10/23/18 15:26 STATUS: PHYLLIS REMildred #: [id number] JAG: 10/23/18 00:[address]: Yoel Guzman DEPT: SURGICAL PATHOLOGY RECD BY: Harpreet Stafford ENTERED: 10/24/18 08:11 SP TYPE: COLON OTHR DR: Dr. Doroteo Dominguez MD Tissues: Colon, NOS Procedures: Surgery Specimen Level V HEADER OPERATION: ERAS, laparoscopic sigmoid colectomy, laparoscopic splenic flexure PRE-OP DIAGNOSIS: Diverticulitis TISSUE SUBMITTED: Sigmoid colon MICROSCOPIC DIAGNOSIS Sigmoid colon, segmental colectomy: Diverticular disease of colon. Margins of excision with no significant pathologic change. One out of one lymph node with no pathologic change. See comment. AM:martin 10/25/18 COMMENT There is focal subserosal granulation, foreign body giant cell reaction to polarizable material and acute and chronic inflammation suggestive of possible microscopic rupture. No gross perforation is identified in this segment of bowel. Clinical correlation is suggested. MICROSCOPIC DESCRIPTION Slides are reviewed. GROSS DESCRIPTION Received in fixative is one container labeled with the patient's name and designated sigmoid colon. The specimen consists of a 14 cm segment of bowel wrapped by dense fibrofatty tissue. One mucosal margin is open. The other mucosal margin contains drew. The mucosa is thrown into normal folds. No mass lesions are identified. No gross perforation is seen. Serial sections reveal a number of diverticula. None of these appear to have perforated through the bowel wall. The pericolic soft tissue contains rare nodules resembling lymph node. Assistant Elementary Teacher sections are submitted in six cassettes as follows: 1 - open mucosal margin, 2 - stapled mucosal margin, 3-5 - diverticula, 6 - chain sales representative lymph node. / AM:martin 10/24/18 TC:2 CPT: 95712
[2018-10-23] MEDS: Acetaminophen 500 MG Tablet 1000 MG PO ×2 (06:30→23:57)
[2018-10-23 06:31] LABS: Bedside Glucose 97 mg/dL (70-110)
[2018-10-23] MEDS: Lactated Ringers 1,000 ML 40 ML IV ×2 (06:43→12:25)
[2018-10-23] MEDS: Magnesium Sulfate 4gm/100mL 4 GM/100 ML IV.SOLN. IV (06:44)
[2018-10-23] MEDS: Gabapentin 600 MG Tablet PO (06:57)
[2018-10-23] MEDS: Bupivacaine Mpf 0.5% 30 ML VIAL (11:20)
--- NOTE | 2018-10-23 11:33 | PCM.OPRPT ---
Report of Operation Date of Procedure: 10/23/18 Pre-Operative Diagnosis: recurrent sigmoid diverticulitis Post-Operative Diagnosis: recurrent sigmoid diverticulitis Surgery/Procedure Performed:: laparoscopic low anterior resection, laparoscopic mobilization of the splenic flexure life skills coordinator volunteer: Leslie Parrish Type of Anesthesia:: General Anesthesiologist: Bernabe Wharton - ASA2 Specimen's removed: sigmoid colon Drains: salazar, 500cc of clear urine Estimated Blood Loss (mL): 100 Fluids Replaced: 1800 Description of Procedure: The patient was brought to the operating suite. Sign in was performed verifying patient, site, procedure, position, and DVT prophylaxis with SCDs. Patient received Cefotetan 2gm. Preoperative bowel prep of mechanical and antibiotic comprised of GoLYTELY and then neomycin and Flagyl 1 g 3 doses evening before was given. Following induction of general anesthetic, the patient was placed in a modified lithotomy position and care being taken to or by pressure points in the legs and arms. An upper body strap was placed and a upper body warmer was placed. A Salazar catheter was placed. A rectal washout was performed with dilute Betadine solution. The patient?s abdomen and perineal area were then prepped and draped in the usual fashion. Timeout was performed verifying patiet, site, position. Local anesthetic was injected below the umbilicus. Incision made and dissection carried down to the umbilical root fascia. 2 stay sutures were placed. Incision made in the fascia, the peritoneum entered under direct visualization. A 10 mm Cintron trocar was inserted and secured with the stay sutures. Pneumoperitoneum to 15 mmHg was insufflated. 2 5mm ports were placed in the lower midline and later in the left paramedian position and a 10/12 port were placed in the right lower quadrant inferior laterally. Adhesions were taken down using Harmonic scalpel. Visual inspection revealed a normal-appearing liver with no significant abnormalities. Adhesions consistent with prior acute diverticulitis was seen in the pelvis/distal sigmoid and to the left latreal gutter at the more proximal sigmoid with adhesions to the left lower quadrant. These adhesions were taken down sharply and using the Harmonic scalpel. The left ureter was identified and protected during the remainder of the proceduer Once this was completed, mobilization the avascular plane was undertaken from the ascending colon down to the area of the mid sigmoid with care taken at mobilization of the level of the iliac vessels then further down to the left lateral rectal peritoneal reflection. As mobilization progressed, the left ureter was able to be visualized protected Once this left-sided mobilization was undertaken, a window was made in to the bare area just proximal to the inferior mesenteric vessels As dissection was continued, the JAMEEL branches were identified and ligated with 5 mm hemoclips and divided with the Harmonic scalpel. Once this was fully divided and surrounded with dissection carried down to the area posterior to the rectum, a 60 mm echelon stapler with a thick load was placed and fired to transect the rectum. A second load was required. The bowel did not easily make it to the pelvis, so therefore, mobilization splenic flexure using Harmonic Scalpel was completed with the colon being completely mobilized off to rectus fascia/left kidney. this still did not really completely reach the pelvis. I then further mobilized the distal transverse colon off the pancreas and jejunum just been the ligament of Treitz and further mobilized and divided the lesser omentum to approximately the mid abdomen. This allowed good reaching of the bowel to the pelvis without tension With full dissection of the mesentery and full mobilization the colon, the umbilical incision was extended and a wound protector placed. The sigmoid colon were delivered through the wound protector. At this point at the planned transection point of the proximal sigmoid colon, the pericolonic were fully mobilized to the margin of the bowel using the harmonic scalpel. The bowel was transected family with a 10 blade scalpel. A 29 mm CEA circular stapler anvil was then placed in the descending colon region and a 2-0 Prolene pursestring suture was used to close the bowel around the anvil. At this point, I proceeded down to the rectum. Rigid proctoscopy was performed after flooding the pelvis with saline. Insufflation demonstrated no leak at the rectal staple line. The staple line was felt to be approximately 15 cm. Next the 29 CEA stapler was lubricated and placed through the rectum up to the staple line. The spike was then opened just anterior to the previous echelon stapler line and the anvil properly seated onto the stapler and brought down to mid gap. The stapler was fired released and withdrawn from the rectum. The proximal and distal doughnuts were noted to be intact. Repeat proctoscopy was again performed again with the pelvis being flooded with saline. Air left in the rectum with insufflation and there was no intra-abdominal leakage noted. The anastomosis was noted to be at 18 cm from the anal verge Gown and gloves were changed. Pneumoperitoneum was released and the umbilical incision was closed with running 0 PDS sutures with the 2 sutures meeting and closed just above the umbilicus. Pneumoperitoneum was reestablished. The right lower quadrant fascial defect was closed with a running 0 PDS suture. Visual inspection revealed no material adhered to the midline closure. The 5mm ports were removed under direct visualization with no signs of bleeding. Pneumoperitoneum was released. Right lower quadrant fascial suture was secured. Subcutaneous tissue at the level of the umbilicus reapproximated with interrupted 3-0 Vicryl sutures. Skin was closed with interrupted and running 4-0 Monocryl subcuticular sutures. Steri-Strips and bandages were applied. The patient was taken from lithotomy position and placed in the standard supine position. The Salazar remained. All sponge and instrument counts were correct. The patient was extubated. The patient was brought to recovery room in stable condition - Admit VTE Documentation VTE Present on Admission: No VTE Mechan Device Prophylaxis: SCD's VTE Pharm Prophylaxis ordered?: Yes
[2018-10-23] MEDS: Ondansetron ODT 4 MG Tablet PO (19:19)
[2018-10-23] MEDS: Docusate Sodium 100 MG Capsule PO (23:57)
[2018-10-24 02:12] VITALS: BP 134/77; PULSE 106; RESP 18; TEMP 37.2; O2SAT 94
[2018-10-24] MEDS: Acetaminophen 500 MG Tablet 1000 MG PO ×4 (05:07→23:58)
[2018-10-24 06:29] LABS: Hematocrit 40.9 % (37-47); Hemoglobin 13.7 g/dl (12.0-15.0); Mean Corp Hgb Conc 33.5 g/gl (32-36); Mean Corpuscular Hgb 30.2 pg (27.0-32.0); Mean Corpuscular Volume 90.1 fL (81-99); Platelet Count 200 K/mm3 (150-450); RBC Distribution Width CV 14.1 % (11.6-14.6); RBC Distribution Width SD 46.4 fl (35.1-43.9); Red Blood Count 4.54 M/mm3 (4.2-5.4); White Blood Count 12.4 K/mm3 (4.4-11.0)
[2018-10-24 06:31] LABS: Scan Indicated on CBC? Y/N NO
[2018-10-24 06:47] LABS: Anion Gap 10 (5-15); BUN 10 mg/dL (7-18); BUN/Creat Ratio 11.5 RATIO (10-20); Chloride 104 mmol/L (98-107); Creatinine, Serum 0.87 mg/dL (0.55-1.02); EST Glomerular Filtration Rate 67 mL/min (>60); Est Glom Filt Rate - Afr Amer 81 mL/min (>60); Estimated Creatinine Clearance 38.28 ml/min; Glucose 117 mg/dL (74-106); Potassium 3.6 mmol/L (3.5-5.1); Sodium Level 138 mmol/L (136-145)
[2018-10-24 07:34] VITALS: O2SAT 92
[2018-10-24] MEDS: BENZOCAINE/MENTHOL 1 LOZENGE MUCOUS MEM (09:11)
[2018-10-24 09:19] VITALS: BP 138/68; PULSE 87; RESP 14; TEMP 36.8; O2SAT 94
[2018-10-24] MEDS: Docusate Sodium 100 MG Capsule PO ×2 (09:32→19:50)
[2018-10-24] MEDS: Enoxaparin 40 MG/0.4 ML Syringe SC (09:32)
--- NOTE | 2018-10-24 13:40 | CASEMGMT ---
RN CM Assessment Presentation: 10/23/18 Lap low anterior resection. Intro role of CM and purpose of RN CM assessment to pt's in room. Pt is ambulating in pena with nursing. Demographics verified. PCP: Dr. Doroteo Dominguez Specialists: Dr. Yoel Guzman Preferred Pharmacy: [facility] Insurance: [facility] PPO Prescription Benefit: yes LNOK: Shin Turner Living Arrangements: Pt lives independently with her . Does not use DME, and requires no assistance with ADL. Transportation: Pt drives, but can if she cannot. DME: none HHC: none DC PLAN: anticipate home on discharge with family support.
[2018-10-24 16:00] VITALS: BP 134/77; PULSE 81; RESP 14; TEMP 37.1; O2SAT 95
--- NOTE | 2018-10-24 16:27 | PCM.PN.SRG ---
Objective: Abdominal incisional pain mostly umbilical area - Physical Exam General: Alert, Oriented x3, Cooperative Lungs: Clear to auscultation, Normal air movement Cardiovascular: Regular rate, No murmurs Abdomen: Bowel Sounds Present, Soft, Tender - at incisions Vital Signs Temp Pulse Resp BP Pulse Ox 98.3 F 87 14 138/68 H 94 10/24/18 09:19 10/24/18 09:19 10/24/18 09:19 10/24/18 09:19 10/24/18 09:19 Oxygen Flow Rate (L/min) 6 Oxygen Delivery Method Room Air Weight: 58.3 kg Body Mass Index (BMI) 25.1 Intake and Output for Last 24 Hours 10/22/18 10/23/18 10/24/18 23:59 23:59 23:59 Intake Total 2552 / 2552 1231 / 1231 Output Total 1050 / 1050 1150 / 1150 Balance 1502 / 1502 81 / 81 Laboratory Tests Past 24 Hrs 10/24/18 10/24/18 06:06 06:06 WBC 12.4 H RBC 4.54 Hgb 13.7 Hct 40.9 MCV 90.1 MCH 30.2 MCHC 33.5 RDW 14.1 RDW Differential 46.4 H Plt Count 200 MPV 11.0 Sodium 138 Potassium 3.6 Chloride 104 Carbon Dioxide 24.0 Anion Gap 10 BUN 10 Creatinine 0.87 Estim Creat Clear Calc 38.28 Est GFR (MDRD) Af Amer 81 Est GFR (MDRD) Non-Af 67 BUN/Creatinine Ratio 11.5 Glucose 117 H Calcium 8.0 L Medical Necessity - Tobacco Use Smoking Status: Never smoker Assessment/Plan All Active Problems Abdominal pain (Acute) Pneumoperitoneum (Acute) Renal insufficiency (Acute) Acute onset of vertigo with vomiting and inability to stand (Acute) Acute ataxia (Acute) postoperative day #1 status post laparoscopic sigmoid resection/low anterior resection with splenic flexure mobilization for recurrent diverticulitis in two Segments. Patient doing well on ERAS protocol. good bowel sounds and tolerating liquids. Muniz catheter will be removed today. We will encourage incentive spirometry use and ambulation.
[2018-10-24] MEDS: Ensure Surgery 237 ML LIQUID PO (19:50)
[2018-10-24 19:54] VITALS: BP 143/74; PULSE 85; RESP 18; TEMP 36.9; O2SAT 95
[2018-10-25] VITALS: BP 145/72; PULSE 81; RESP 16; TEMP 36.9; O2SAT 94
[2018-10-25] MEDS: Ensure Surgery 237 ML LIQUID PO (05:00)
[2018-10-25 05:05] VITALS: BP 141/74; PULSE 84; RESP 16; TEMP 36.4; O2SAT 96
[2018-10-25] MEDS: Acetaminophen 500 MG Tablet 1000 MG PO (05:08)
--- NOTE | 2018-10-25 06:13 | DCINST_ITS ---
Discharge Diet: Light diet - advance as tolerated - If you have questions about your diet instructions, please talk to your doctor. Discharge Activity: May Not Drive - for 1 week or while taking narcotic pain meds. May shower in (days): 0 Lifting Restrictions: 10 pounds Call your doctor if your incision/area has: Continuous Slow Oozing, Sudden Increased Bleeding, Increased Pain/ Swelling, Increased Redness, Foul Smelling Discharge Call your doctor if you observe: Fever of 101 or Higher Suture Line Care: Avoid Pulling/Pushing, Avoid Pinching/Bending Additional Dressing/Incision Instructions:: No dressings. Allergies/Adverse Reactions: Allergies latex Allergy (Verified 10/16/18 10:08) Rash adhesive Adverse Reaction (Verified 10/16/18 10:08) Rash amoxicillin [From Augmentin] Adverse Reaction (Verified 10/16/18 10:08) Diarrhea clavulanic acid [From Augmentin] Adverse Reaction (Verified 10/16/18 10:08) Diarrhea Medications to take at Discharge Aspirin [Aspirin, Baby] 81 mg PO DAILY@0800 08/14/18 Cholecalciferol (VIT D3) [Vitamin D3] 1,000 unit PO DAILY 08/14/18 Magnesium Amino Acid Chelate [Magnesium] 1 tab PO DAILY 10/16/18 Acetaminophen [Tylenol] 1,000 mg PO Q6 tablet 10/25/18 Orders to be completed after discharge: Basic Metabolic Profile (BMP) Time Frame: 10/16/18, Location: Laboratory Primary Care Physician: Doroteo Dominguez MD [Primary Care Provider] - Test Results: Test results from this visit will be discussed in further detail at your follow- up appointment, if applicable. Please Follow Up With: Yoel Guzman MD - [phone] When: Call to make an appointment to be seen
--- NOTE | 2018-10-25 06:13 | PCM.DC.SUM ---
Discharge Date and Diagnosis Date of Admission: 10/23/18 Date of Discharge: 10/25/18 - Primary Discharge Diagnosis recurrent diverticulitis - Secondary Discharge Diagnosis Chronic Problems Recurrent cold sores (Chronic) HLD (hyperlipidemia) (Chronic) Hospital Course and Treatment Operations: colectomy Summary of Care Provided: The patient is a 78 year old F with recurrent diverticulitis. SHe underwent a laparoscopic low anterior resection with splenic flexure mobilization. SHe had return of flatus, was tolerating oral liquids and ready for discharge on POD # 2 - Physical Exam General: Alert, Oriented x3, Cooperative Lungs: Clear to auscultation, Normal air movement Cardiovascular: Regular rate, No murmurs Abdomen: Bowel Sounds Present, Soft, Tender - at incisions Vital Signs Temp Pulse Resp BP Pulse Ox 97.5 F L 84 16 141/74 H 96 10/25/18 05:05 10/25/18 05:05 10/25/18 05:05 10/25/18 05:05 10/25/18 05:05 Oxygen Flow Rate (L/min) 6 Oxygen Delivery Method Room Air Weight: 58.3 kg Body Mass Index (BMI) 25.1 Intake and Output for Last 24 Hours 10/23/18 10/24/18 10/25/18 23:59 23:59 23:59 Intake Total 2552 / 2552 2035 / 2035 Output Total 1050 / 1050 1403 / 1403 725 / 725 Balance 1502 / 1502 632 / 632 -725 / -725 Laboratory Tests Past 24 Hrs 10/24/18 10/24/18 06:06 06:06 WBC 12.4 H RBC 4.54 Hgb 13.7 Hct 40.9 MCV 90.1 MCH 30.2 MCHC 33.5 RDW 14.1 RDW Differential 46.4 H Plt Count 200 MPV 11.0 Sodium 138 Potassium 3.6 Chloride 104 Carbon Dioxide 24.0 Anion Gap 10 BUN 10 Creatinine 0.87 Estim Creat Clear Calc 38.28 Est GFR (MDRD) Af Amer 81 Est GFR (MDRD) Non-Af 67 BUN/Creatinine Ratio 11.5 Glucose 117 H Calcium 8.0 L Discharge Diet: Light diet - advance as tolerated - If you have questions about your diet instructions, please talk to your doctor. Discharge Activity: May Not Drive - for 1 week or while taking narcotic pain meds. May shower in (days): 0 Call your doctor if your incision/area has: Continuous Slow Oozing, Sudden Increased Bleeding, Increased Pain/ Swelling, Increased Redness, Foul Smelling Discharge Call your doctor if you observe: Fever of 101 or Higher Suture Line Care: Avoid Pulling/Pushing, Avoid Pinching/Bending Additional Dressing/Incision Instructions:: No dressings. Home Medications: Medications to take at Discharge Aspirin [Aspirin, Baby] 81 mg PO DAILY@0800 08/14/18 Cholecalciferol (VIT D3) [Vitamin D3] 1,000 unit PO DAILY 08/14/18 Magnesium Amino Acid Chelate [Magnesium] 1 tab PO DAILY 10/16/18 Acetaminophen [Tylenol] 1,000 mg PO Q6 tablet 10/25/18 Other Amb Orders: Basic Metabolic Profile (BMP) Time Frame: 10/16/18, Location: Laboratory Primary Care Physician: Doroteo Dominguez MD [Primary Care Provider] - Please Follow Up With: Yoel Guzman MD - [phone] When: Call to make an appointment to be seen Medical Necessity - Tobacco Use Smoking Status: Never smoker Meaningful Use Info Meaningful Use Diagnoses (Choose all that apply): None applicable
[2018-10-25 06:43] LABS: Absolute Lymphocyte Count 1.82 X10^3/ul (0.83-4.51); Basophil# 0.02 X10^3/uL; Basophil% 0.2 % (0-1); Eosinophil# 0.03 X10^3/uL; Eosinophils% 0.3 % (0-5); Hematocrit 41.1 % (37-47); Hemoglobin 13.8 g/dl (12.0-15.0); Lymphocyte # 1.82 X10^3/ul (4.0); Lymphocyte % 20.6 % (19-41); Mean Corp Hgb Conc 33.6 g/gl (32-36); Mean Corpuscular Hgb 30.5 pg (27.0-32.0); Mean Corpuscular Volume 90.7 fL (81-99); Mean Platelet Vol. 10.7 fl (6.2-12.0); Monocyte# 0.93 X10^3/uL; Monocyte% 10.5 % (0-10); Neutrophil # 6.03 X10^3/uL (2.7-7.7); Neutrophil % 68.2 % (47-70); Platelet Count 196 K/mm3 (150-450); RBC Distribution Width CV 14.3 % (11.6-14.6); RBC Distribution Width SD 46.6 fl (35.1-43.9); Red Blood Count 4.53 M/mm3 (4.2-5.4); White Blood Count 8.9 K/mm3 (4.4-11.0)
[2018-10-25 06:46] LABS: POSITIVE COUNT NO; POSITIVE DIFFERENTIAL NO; POSITIVE MORPHOLOGY NO
[2018-10-25 06:51] LABS: Anion Gap 7 (5-15); BUN 10 mg/dL (7-18); BUN/Creat Ratio 12.9 RATIO (10-20); Calcium,Total 8.3 mg/dL (8.5-10.1); Chloride 107 mmol/L (98-107); Creatinine, Serum 0.77 mg/dL (0.55-1.02); EST Glomerular Filtration Rate 77 mL/min (>60); Est Glom Filt Rate - Afr Amer 93 mL/min (>60); Glucose 109 mg/dL (74-106); Potassium 3.5 mmol/L (3.5-5.1); Sodium Level 139 mmol/L (136-145)
[2018-10-25 08:15] VITALS: BP 127/59; PULSE 76; RESP 18; TEMP 37.5; O2SAT 93
== END 2018-10-25 09:10 | disposition home or self-care (01) | DRG 331 ==
LOC: ACINP 05:43 → MS2 09:20
PROVIDERS: Admitting Provider Surgery; Family Provider Family Medicine; PCP Family Medicine; Referring Provider Surgery; Visit Provider Surgery
PROC: 0DTN0ZZ Resection of Sigmoid Colon, Open Approach (ICD-10-PCS; CPT 44204; principal; 2018-10-23 07:05)
DX: K57.32 Diverticulitis of large intestine without perforation or abscess without bleeding (principal); E78.5 Hyperlipidemia, unspecified
CPT/HCPCS: 36415; 80048; 82962; 85025; 85027; 88307; 97802; J7050; J7120; J2405

== ENCOUNTER 2018-10-26 17:53 | Emergency (ER) | payer MEDICARE, SELFPAY ==
[2018-10-23 16:10] VITALS: BMI 25.1
[2018-10-26 17:54] VITALS: BP 97/61; PULSE 102; RESP 16; TEMP 36.7; O2SAT 94; BMI 24.0
[2018-10-26 18:06] VITALS: TEMP 36.6
--- NOTE | 2018-10-26 18:06 | ED.VISSUMM ---
- ER Visit Summary Date of Service: 10/26/18 Chief Complaint: Rash History of Present Illness: The patient is a 78 F presenting with a rash on her abdomen after surgery 3 days ago. She had a reversal of an ostomy. She describes the rash is itchy and red. As far as her wounds are concerned her abdomen she has no abdominal pain she has no fever or chills. The wounds are healing well. Physical Examination: Otherwise unremarkable exam she has a blanching erythematous rash on her abdomen where the iodine was placed preoperatively. The ostomy site is closed and the incision appears intact. The midline incision is intact without any signs of cellulitis. Patient told me that this happened prior surgery also but she does not know what it was. She tells me it is quite itchy. This is likely secondary to iodine. I am reluctant to give her steroids I will discharge her home in stable condition with Vistaril. Discharge stable condition Impression: Allergic dermatitis to iodine This note was generated with [employer] dictation software. It may contain incorrect words, spelling, and punctuation that were not noted in review of the chart prior to signing ED Disposition - Plan for ED Patient: Disposition: Home or Assisted Living Instructions: ED Dermatitis Contact Prescriptions: Hydroxyzine Pamoate [Vistaril] 50 mg PO 4X/DAY PRN PRN #40 cap PRN Reason: Itching Referrals: Doroteo Dominguez MD [Primary Care Provider] - 5-7 Days Yoel Guzman MD [STAFF PHYSICIAN] - 3-5 Days
[2018-10-26] MEDS: hydrOXYzine PAM 25 MG Capsule 50 MG PO (18:17)
== END 2018-10-26 18:28 | disposition home or self-care (01) ==
LOC: ED 18:26
PROVIDERS: Emergency Provider Emergency Medicine; Family Provider Family Medicine; PCP Family Medicine
DX: L23.89 Allergic contact dermatitis due to other agents (principal)
CPT/HCPCS: 99282

== ENCOUNTER → 2019-09-15 12:47 | Outpatient (CLI) | payer MEDICARE, SELFPAY ==
--- NOTE | 2019-09-15 12:51 | BI_ITS ---
MAMMOGRAPHY - BILATERAL SCREENING REASON FOR EXAM: Female, 79 years old. Routine annual screening examination. PERTINENT HISTORY: Non-contributory. TECHNIQUE: Digital bilateral breast jim (3D mammographic acquisition) in the CC and MLO projections. 2-D mediolateral oblique (MLO) and craniocaudad (CC) views of both breasts were obtained. CAD: Full Field Digital Mammography with Computer Added Detection was performed. COMPARISON: Comparison is made with prior study dated September 12, 2018 and March 22, 2017. FINDINGS: Breast Composition: There are scattered areas of fibroglandular density. There are no dominant masses or suspicious calcifications. No other significant abnormalities are identified. There has been no significant change since the prior study. BI/SCREEN MAMM (CAD) W/JIM BILAT IMPRESSION: Stable bilateral screening mammogram. Yearly follow-up mammogram recommended. (A) ASSESSMENT CATEGORY: BIRADS Category 1: Negative. A letter regarding these results will be sent to the patient by the facility within 30 days. Approximately 10% of breast cancers are not detected by mammography. A normal mammogram should not delay biopsy of a clinically suspicious abnormality. [id number] Electronically Signed: Dominic Haywood, at 13:53 EST , Service support ,
== END ==
PROVIDERS: Family Provider Family Medicine; PCP Family Medicine; Referring Provider Obstetrics & Gynecology; Visit Provider Obstetrics & Gynecology
DX: Z12.31 Encounter for screening mammogram for malignant neoplasm of breast (principal)
CPT/HCPCS: 77063; 77067

== ENCOUNTER → 2020-02-03 08:33 | Outpatient (CLI) | payer MEDICARE, SELFPAY ==
[2020-02-03 10:33] LABS: Absolute Lymphocyte Count 2.66 X10^3/uL (0.83-4.51); Absolute Neutrophil Count 3.2 X10^3/uL (2.0-7.7); Basophil# 0.08 X10^3/uL; Basophil% 1.2 % (0-1); Eosinophil# 0.14 X10^3/uL; Eosinophils% 2.1 % (0-5); Hematocrit 47.7 % (37-47); Hemoglobin 15.3 g/dL (12.0-15.0); Lymphocyte # 2.66 X10^3/ul (4.0); Lymphocyte % 39.6 % (19-41); Mean Corp Hgb Conc 32.1 g/dL (32-36); Mean Corpuscular Hgb 29.5 pg (27.0-32.0); Mean Corpuscular Volume 91.9 fL (81-99); Mean Platelet Vol. 11.2 fl (6.2-12.0); Monocyte# 0.61 X10^3/uL; Monocyte% 9.1 % (0-10); NRBC Flagged by Analyzer 0 % (0-5); Neutrophil # 3.19 X10^3/uL (2.7-7.7); Neutrophil % 47.4 % (47-70); Platelet Count 249 K/mm3 (150-450); RBC Distribution Width SD 44.3 fl (35.1-43.9); Red Blood Count 5.19 M/mm3 (4.2-5.4); White Blood Count 6.7 K/mm3 (4.4-11.0)
[2020-02-03 10:58] LABS: Vitamin D,25 Hydroxy 59.9 ng/mL
[2020-02-03 11:01] LABS: ALB/GLOB Ratio 0.8 RATIO (0.9-2.4); AST(SGOT) 24 U/L (15-37); Alanine Aminotransfer ALT/SGPT 25 U/L (13-56); Albumin, Serum 3.4 g/dL (3.2-5.0); Alkaline Phosphatase 66 U/L (45-117); Anion Gap 7 (5-15); BUN 18 mg/dL (7-18); BUN/Creat Ratio 17.1 RATIO (10-20); Calcium,Total 9.1 mg/dL (8.5-10.1); Chloride 106 mmol/L (98-107); Cholesterol 247 mg/dL (200); Creatinine, Serum 1.05 mg/dL (0.55-1.02); EST Glomerular Filtration Rate 54 mL/min (>60); Est Glom Filt Rate - Afr Amer 65 mL/min (>60); Glucose 86 mg/dL (74-106); High Density Lipoprotein 46 mg/dL; Potassium 4.2 mmol/L (3.5-5.1); Protein, Total 7.4 g/dL (6.4-8.2); Sodium Level 142 mmol/L (136-145); Thyroid Stim Hormone (TSH) 5.22 uIU/mL (0.358-3.74); Triglycerides 157 mg/dL; Very Low Density Lipoprotein 31 mg/dL (5-40)
[2020-02-03 11:04] LABS: Microalbumin,Random Urine 5.2 mg/L (NO RANGE EST.); Microalbumin:Creatinine Ratio 6.5 mg/g CRE (<30 mg/g CRE)
== END ==
PROVIDERS: PCP Family Medicine; Referring Provider Family Medicine; Visit Provider Family Medicine
DX: M81.0 Age-related osteoporosis without current pathological fracture (principal); E78.00 Pure hypercholesterolemia, unspecified
CPT/HCPCS: 36415; 80053; 80061; 82043; 82306; 82570; 84443; 85025

== ENCOUNTER → 2020-03-10 08:11 | Outpatient (CLI) | payer MEDICARE, SELFPAY ==
[2020-03-10 10:42] LABS: Cholesterol 161 mg/dL (200); High Density Lipoprotein 48 mg/dL; Triglycerides 90 mg/dL; Very Low Density Lipoprotein 18 mg/dL (5-40)
== END ==
PROVIDERS: PCP Family Medicine; Visit Provider Family Medicine
DX: E78.00 Pure hypercholesterolemia, unspecified (principal)
CPT/HCPCS: 36415; 80061

== ENCOUNTER 2020-05-31 12:00 | Outpatient (RCR) | payer MEDICARE, SELFPAY ==
--- NOTE | 2020-02-24 10:32 | HP.PTEVAL ---
Patient's Visit Information KAT WICK is a 79 year old F referred to Physical Therapy by Dr. Doroteo Dominguez MD with a diagnosis of Left Knee and Hip. Date of Evaluation: 02/24/20 Physical Therapist: Jena Hancock DPT - Visit Plan Frequency: 2x /Week Duration: 4 Weeks Plan: Focus on LE and core strength/stabilization with a HEP- Ultrasound as modality - Subjective Patient reports a lot of pain with sitting and getting out of the car- in the left knee. This has been happening since november- was planting dorman on knee but is unsure. Pain is located in the medial and lateral joint line and along the posterior knee. Walks around the block and does water aerobics 3 days a week at the high school. Agg: getting up from sitting- or bending backwards Eases moving. Best: 0/10 Worst: 8/10. Does not last very long. Going down stairs is almost impossible. Describes the pain as sharp/shooting. Radiates the hip in the back- No N/T in the LE- no problems on the right LE. No images of the knee. No history of hip/knee or back problems. Very active- likes to be moving. Sleep: not disturbed. PMHx: none Meds: statin for cholesterol. - Objective Posture: FH, RS- can correct with verbal cues. Gait: mild decreased stance on the left LE with decreased heel strike. HR/TR: able and reports no pain. SLS: 10 sec without LOB. Stairs: asc/desc 8 recip- with 1 HR- hesistant and does not trust the left LE. ROM: WNL in all planes but reports pain at end range flexion of the knee. Palpation: tender along lateral knee joint and along the ITBand to the greater troch. Sensation: WNL. Strength: Core: fair, Hip: 4/5 throughout, Knee: 4+/5 with discomfort, Ankle: 5/5. Flex: HS: moderate, Gastroc: moderate. Special Test: Kirstin: negative - Goals Goal 1:: Patient will be I with HEP and progression Goal Time Frame: 4-6 Weeks Goal 2:: Patient will demo full rOM of the knee with no pain Goal Time Frame: 4-6 Weeks Goal 3:: Patient will improve strength in left LE 1 grade Goal Time Frame: 4-6 Weeks Goal 4:: Patient will report 0/10 pain for 1 week Goal Time Frame: 4-6 Weeks - Rehabilitation Potential Physical Therapy Diagnosis: Patient presents with hypomobility- she has decreased painfree ROM, strength and flex leading to abnormal gait and decreased ability to perform ADL's. Rehabilitation Potential: Fair - Anticipated Interventions Patient/Client Instruction: Educate patient on: Benefits of Fitness Program Therapeutic Exercise to Include: Strength training, Endurance training, Balance training, Agility training, Body mechanics, Postural training, Flexibilty training, Gait and locomotor training, Neuromotor development, Passive ROM, Active ROM, Dynamic Lumbar Stabilization For the Purpose of:: To improve muscle performance and motor function TENS: Yes Cryotherapy (ice pack, ice massage): Yes Thermo therapy (hot pack): Yes Ultrasound (thermal/non thermal): Yes For the Purpose of:: To increase oxygenation perfusion Thank you for the opportunity to evaluate your patient. For Medicare and Medicare HMO plans, please review the plan of care and approve it. It will need to be FAXED BACK to us at [phone] for Medicare purposes. For Medicare only, by signing this I certify the plan of care. Please let me know if there are questions or concerns regarding this plan of care. Physician Signature: Date:
--- NOTE | 2020-04-29 17:28 | HP.PTREVAL ---
Dr. Doroteo Dominguez MD, It has been my pleasure to treat KAT WICK over the last 2 visits for Left Knee and Hip. Please see the progress note below for an update on the physical therapy plan of care! Subjective: Patient reports that she was doing really good and the pain seems to be settling back in. When she gets up she has to stand for 2-5 seconds before she can get going again. The pain is located along the posterior knee and on the medial side of the knee. Its hard to get put weight on it after she has been sitting or getting out of the car. When she goes to the pool in the AM she feels really great- that only lasts a few hours then she is painful again. Worst: 6/10 - describes the pain as stabbing. Best: 0/10 Eases: not putting weight on it. No setback injury just 2-3 weeks ago it started to bother her again. Objective/Function: Posture: FH, RS- can correct with verbal cues. Gait: mild decreased stance on the left LE with decreased heel strike. HR/TR: able and reports no pain. SLS: 10 sec without LOB. Stairs: asc/desc 8 recip- with 1 HR- hesistant and does not trust the left LE. ROM: WNL in all planes but reports pain at end range flexion of the knee. Palpation: tender along lateral knee joint and along the ITBand to the greater troch and along posterior knee. Sensation: WNL. Strength: Core: fair, Hip: 4/5 throughout, Knee: 4+/5 with discomfort, Ankle: 5/5. Flex: HS: moderate, Gastroc: moderate. Special Test: Kirstin: negative Plan Plan: Focus on LE and core strength/stabilization with a HEP- Ultrasound as modality Goals Goal 1:: Patient will be I with HEP and progression Goal Time Frame: 4-6 Weeks Goal 2:: Patient will demo full rOM of the knee with no pain Goal Time Frame: 4-6 Weeks Goal 3:: Patient will improve strength in left LE 1 grade Goal Time Frame: 4-6 Weeks Goal 4:: Patient will report 0/10 pain for 1 week Goal Time Frame: 4-6 Weeks Anticipated Interventions Patient/Client Instruction: Educate patient on: Benefits of Fitness Program Therapeutic Exercise to Include: Strength training, Endurance training, Balance training, Agility training, Body mechanics, Postural training, Flexibilty training, Gait and locomotor training, Neuromotor development, Passive ROM, Active ROM, Dynamic Lumbar Stabilization For the Purpose of:: To improve muscle performance and motor function TENS: Yes Cryotherapy (ice pack, ice massage): Yes Thermo therapy (hot pack): Yes Ultrasound (thermal/non thermal): Yes For the Purpose of:: To increase oxygenation perfusion Please do not hesitate to contact me at [phone] by phone or if you have questions or concerns regarding this new plan of care! Sincerely, JERAMIE LeeT
--- NOTE | 2020-08-04 08:56 | HP.PTDCSUM ---
It has been my pleasure to treat KAT WCIK referred by Dr. Doroteo Dominguez MD, with the diagnosis of Left Knee and Hip for a total of 9 visit(s). Discharge Date: Please see the following information for a summary of their discharge status. Subjective: Pt reports that she has been doing a lot of stretching at home and this is helping her a lot. Left Hamstrings Pain Intensity (Out of 10): 2 Objective/Function: D/C HSS to home. Pt compliant. Progressing well w/ex's. Compliant w/stretching at home. Goal 1:: Patient will be I with HEP and progression Goal 2:: Patient will demo full rOM of the knee with no pain Goal 3:: Patient will improve strength in left LE 1 grade Goal 4:: Patient will report 0/10 pain for 1 week Plan: Focus on LE and core strength/stabilization with a HEP - Ultrasound as modality If there are questions or concerns regarding this patient's physical therapy, please feel free to call me at [phone]. Thank you for the referral of this patient. Sincerely, JERAMIE LeeT
== END 2020-05-31 19:00 | disposition home or self-care (01) ==
LOC: PT 12:00
PROVIDERS: PCP Family Medicine; Referring Provider Family Medicine; Visit Provider Family Medicine
DX: M76.32 Iliotibial band syndrome, left leg (principal)
CPT/HCPCS: 97035; 97110; 97161; 97164

== ENCOUNTER → 2020-09-15 10:43 | Outpatient (CLI) | payer MEDICARE, SELFPAY ==
[2020-06-10 12:37] VITALS: BMI 25.4
--- NOTE | 2020-09-15 10:52 | BD_ITS ---
STUDY: DUAL ENERGY X-RAY ABSORPTIOMETRY / DXA REASON FOR EXAM: Female, 80 years old. BERRY GROWER -- TAKES MULTIVITAMIN, VIT D AND MAGNESIUM -- CURRENTLY ON PROLIA, HX OF TAKING FOSAMAX -- DOES HIGH AMOUNT OF EXERCISE -- FAMILY HX OF OSTEO- MOTHER -- HX OF RIB FX''S -- GENI OF 1 INCH TECHNIQUE: Bone Mineral Density (BMD) measurements of lumbar spine and bilateral hips were obtained. COMPARISON: Comparison is made with prior study dated 09/12/2018. FINDINGS: Lumbar Spine (L1-L4): g/cm2 (0.913) / T-score (-2.1) / Z-score (-0.3) Findings are suggestive of osteopenia with a high fracture risk. Left Femur Total: g/cm2 (0.699) / T-score (-2.4) / Z-score (-0.4) Left Femoral Neck: g/cm2 (0.700) / T-score (-2.4) / Z-score (-0.3) Right Femur Total: g/cm2 (0.704) / T-score (-2.4) / Z-score (-0.4) Right Femoral Neck: g/cm2 (0.741) / T-score (-2.1) / Z-score (0.0) The T-Scores on the most recent prior examination were: Lumbar Spine (L1-L4): There has been improvement of bone density since the previous examination. Left Femur Total: which represents a worsening of 1%. Right Femur Total: which represents an improvement of 2.2%. BD/Dexa Bone Density Study IMPRESSION: The patient is considered osteopenic as outlined below according to World Saleem Organization (WHO) criteria with a high fracture risk. There has been improvement of bone density since the previous examination. Reference Information: The T-score is the number of standard deviations above or below the standard which is normal for young adults at their peak bone mineral density. The World Health Organization (WHO) interprets the T-scores as follows: Above -1 Normal bone density Between -1 and -2.5 Osteopenia Equal to / or below -2.5 Osteoporosis As a practical clinical guideline, osteopenia may be graded as follows: Mild -1 through -1.5 Moderate -1.6 through -2.0 Severe -2.1 through -2.4 The Z-score is the number of standard deviations above or below age-matched controls. A Z-score of less than -1.5 would be considered abnormal. References: 1. NIH Osteoporosis and Related Bone Diseases www osteo.org 2. International Society for Clinical Densitometry www iscd.org 3. National Osteoporosis Foundation www nof.org Electronically Signed: Dominic Haywood, at 15:53 EST , Service support ,
== END ==
PROVIDERS: PCP Family Medicine; Referring Provider Family Medicine; Visit Provider Family Medicine
DX: M81.0 Age-related osteoporosis without current pathological fracture (principal)
CPT/HCPCS: 77080

== ENCOUNTER 2020-09-23 10:00 | Outpatient (RCR) | payer MEDICARE, SELFPAY ==
[2020-06-10 12:37] VITALS: BMI 25.4
== END 2020-09-23 23:59 ==
LOC: IMMUN 10:00
PROVIDERS: PCP Family Medicine; Visit Provider Family Medicine
DX: Z23 Encounter for immunization (principal)
CPT/HCPCS: 0011A; 0012A; 91301

== ENCOUNTER 2021-03-19 20:34 | Emergency (ER) | payer MEDICARE, SELFPAY ==
[2020-06-10 12:37] VITALS: BMI 25.4
[2021-03-19 20:35] VITALS: BP 199/75; PULSE 110; RESP 22; TEMP 36.7; O2SAT 95; BMI 26.7
--- NOTE | 2021-03-19 21:06 | CT_ITS ---
STUDY: CT BRAIN WITHOUT CONTRAST REASON FOR EXAM: Female, 80 years old. Hypertension RADIATION DOSAGE (If Supplied By Facility): CTDIvol = ( 44.99 ) mGy, DLP = ( 745.49 ) mGycm TECHNIQUE: Transaxial CT imaging of the brain was performed without administration of intravenous contrast material. Individualized dose optimization techniques were used for this CT. COMPARISON: Head CT dated November 27, 2014 FINDINGS: Normal soft tissue structures. Normal calvarium. There is mild cerebral atrophy with widening of the extra-axial spaces and ventricular dilatation. There are areas of decreased attenuation within the white matter tracts of the supratentorial brain, consistent with microvascular disease changes. Normal basal ganglia and thalami. Normal brainstem. Normal cerebellum. There is no intracranial hemorrhage. There are no findings of an acute ischemic infarction. Normal visualized paranasal sinuses. CT/Brain/Head without Contrast IMPRESSION: Chronic involutional changes of the brain. Electronically Signed: Ayan Turk MD at 22:24 EDT , Service support ,
--- NOTE | 2021-03-19 21:06 | CT_ITS ---
STUDY: CT CERVICAL SPINE WITHOUT CONTRAST REASON FOR EXAM: Female, 80 years old. Neck pain RADIATION DOSAGE (If Supplied By Facility): CTDIvol = ( 15.16 ) mGy, DLP = ( 286.84 ) mGycm TECHNIQUE: High resolution transaxial imaging was performed without contrast material. Sagittal and coronal images were reconstructed. Individualized dose optimization techniques were used for this CT. COMPARISON: None FINDINGS: Normal craniovertebral junction. Normal anterior atlantoaxial articulation. Normal odontoid process. There is reversal of the normal cervical lordosis. Mild to moderate multilevel degenerative changes are present. Mild central canal stenosis is seen at several levels. No visualized acute fracture or compression deformity. Listhesis of 2 to 3 mm is seen at several levels. Unremarkable visualized soft tissue structures. CT/Spine Cervical without Contras IMPRESSION: Multilevel degenerative changes, as described above. Electronically Signed: Ayan Turk MD at 22:28 EDT , Service support ,
--- NOTE | 2021-03-19 21:07 | EKG12_ITS ---
Test Reason : DIZZINESS Blood Pressure : / mmHG Vent. Rate : 079 BPM Atrial Rate : 079 BPM P-R Int : 152 ms QRS Dur : 076 ms QT Int : 378 ms P-R-T Axes : 082 010 048 degrees QTc Int : 433 ms Normal sinus rhythm Normal ECG Confirmed by PRIYANKA BOWERS MD ([id number]), scientific editor BARBARA BAKER ([id number]) on 03/21/2021 2:24:40 PM Referred By: ISADORA Confirmed By:PRIYANKA BOWERS MD
[2021-03-19] MEDS: 0.9% Normal Saline 1,000 ML 1000 ML IV (21:17)
[2021-03-19] MEDS: proMETHazine 25 MG/ML Syringe 12.5 MG IM (21:17)
[2021-03-19] MEDS: Ondansetron 4 MG/2 ML Vial IV (21:17)
--- NOTE | 2021-03-19 21:17 | EDS_ITS ---
HPI History of Present Illness Chief Complaint: Dizziness Narrative Narrative: Patient with history of vertigo presenting with vertiginous dizziness. She states she has been like this since she woke up from a nap. She describes vomiting and spinning. She also states she feels lightheaded. On arrival her blood pressure is elevated and she has concern about this. Patient denies any head trauma. She denies chest pain, palpitations, shortness of breath. She denies abdominal pain she denies urinary symptoms. She denies constipation or diarrhea. [facility] Medical History bunion surgery Hyperlipidemia Home Medications cholecalciferol (vitamin D3) 1,000 unit PO DAILY 08/14/18 [History Last Taken Unknown] magnesium amino acid chelate 1 tab PO DAILY 10/16/18 [History Last Taken Unknown] atorvastatin 10 mg tablet 10 mg PO DAILY 06/10/20 [History Last Taken Unknown] coenzyme Q10 75 mg capsule 75 mg PO DAILY 06/10/20 [History Last Taken Unknown] multivitamin 1 tab PO DAILY 06/10/20 [History Last Taken Unknown] meclizine 25 mg PO TID #30 tab 03/19/21 [Rx Last Taken Unknown] Allergy/AdvReac Type Severity Reaction Status Date / Time Iodine and Iodide Containing Allergy Rash Verified 03/19/21 20:37 Produc latex Allergy Rash Verified 03/19/21 20:37 adhesive AdvReac Rash Verified 03/19/21 20:37 amoxicillin [From Augmentin] AdvReac Diarrhea Verified 03/19/21 20:37 clavulanic acid AdvReac Diarrhea Verified 03/19/21 20:37 [From Augmentin] Family History Mother Hypertension Surgical History H/O colectomy H/O removal of cyst History of surgical removal of intestinal structure Hx of removal of ovary Social History household members: spouse housing: house Smoking Status: Never smoker alcohol intake: never substance use type: does not use what type of physical activity do you participate in: swimming and aerobics frequency: 3-4 times per week seatbelt use: always do you feel safe at home: Yes ROS ROS ED Constitutional Constitutional ED: Denies chills or fever(s) Eyes Eyes: Reports other; Denies blurry vision or diplopia ENT ENT ED: Denies rhinorrhea Cardiovascular Cardiovascular: Denies chest pain or palpitations Respiratory/Chest Respiratory/Chest: Denies cough or dyspnea Gastrointestinal Gastrointestinal: Reports nausea and vomiting; Denies abdominal pain Genitourinary Genitourinary ED: Denies dysuria or hematuria Musculoskeletal Musculoskeletal: Reports neck pain; Denies arthralgias or myalgias Integumentary Denies abscess or rash Neurologic Neurologic: Denies headache(s) or paresthesias Psychiatric Psychiatric: Denies anxiety or depression EXAM Physical Exam Const Vital Signs: 03/19/21 20:35 03/19/21 20:42 Temperature 98.1 F Temperature Source Temporal Pulse Rate 110 H Respiratory Rate 22 H Respiratory Effort Normal Non-Labored Blood Pressure 199/75 H Blood Pressure Mean 116 Pulse Ox 95 Oxygen Delivery Method Room Air Positive well nourished General Appearance ED: NAD HEENT Reports moist mucous membranes Negative for trauma Eyes PERRL and EOMs intact bilaterally Eyes Narrative: Nystagmus noted with modified Ernie-Hallpike maneuver. Neck No no lymphadenopathy and No supple Resp normal respiratory effort and clear to auscultation bilaterally Cardio regular rate Rate: tachycardic GI normal to inspection, nondistended, normoactive bowel sounds Back/Spine Cervical Spine: cervical spine tenderness Cervical Spine Tenderness Details: diffuse Neuro oriented x3 and CN's II-XII intact bilaterally Sensorium / Orientation: alert Psych mental status grossly normal Skin no rashes or lesions noted and no wounds MDM MDM MDM Narrative Medical decision making narrative: Patient presenting with vertigo symptoms however she is also hypertensive and tachycardic. On exam I was able to reproduce her symptoms. I did check lab work which is fairly normal. Her urinalysis is negative for infection. Patient had EKG performed which is sinus rhythm at 79 bpm without signs of ST elevation or depression on my interpretation. There is no dysrhythmia. Chest x-ray shows no acute process on my interpretation. The radiologist does agree. CT of the brain is negative for acute intracranial findings. CT of the cervical spine was performed due to the patient's complaint of neck pain over the last month. This shows multilevel degenerative changes with mild central canal stenosis. I will give her follow- up with Dr. De La Fuente for this. Patient feels well after being treated with Zofran, Phenergan, meclizine. I will discharge her home with a prescription for m eclizine. She is to follow-up with her PCP. Patient stable for discharge at this time. Impression: 1 benign positional vertigo 2. Hypertension resolved 3. Tachycardia resolved 4. Neck pain with degenerative disc disease Lab Data Labs: Laboratory Results - last 24 hr 03/19/21 03/19/21 03/19/21 20:44 20:44 21:44 WBC 9.0 RBC 5.17 Hgb 15.4 H Hct 46.1 MCV 89.2 MCH 29.8 MCHC 33.4 RDW Std Deviation 41.9 RDW Coeff of [place] 12.6 Plt Count 233 MPV 11.0 Immature Gran % (Auto) 1.100 H Neut % (Auto) 59.2 Lymph % (Auto) 30.6 Petroleum % (Auto) 7.6 Eos % (Auto) 0.8 Baso % (Auto) 0.7 Absolute Neuts (auto) 5.4 Absolute Lymphs (auto) 2.77 Nucleated RBC % 0 Sodium 141 Potassium 3.8 Chloride 110 H Carbon Dioxide 21.0 Anion Gap 10 BUN 19 H Creatinine 1.08 H Estim Creat Clear Calc 29.84 Est GFR (MDRD) Af Amer 63 Est GFR (MDRD) Non-Af 52 L BUN/Creatinine Ratio 17.6 Glucose 141 H Calcium 8.2 L Urine Color Yellow Urine Clarity Sl. Cloudy Urine pH 7.0 Ur Specific [place] 1.010 Urine Protein Negative Urine Glucose (UA) Normal Urine Ketones 150 A* Urine Occult Blood 50 H Urine Nitrite Negative Urine Bilirubin Negative Urine Urobilinogen Normal Ur Leukocyte Esterase Negative Urine RBC 5-10 SEEN Urine WBC 0-5 SEEN Ur Squamous Epith Cells 0-5 SEEN Uric Acid Crystals ... Triple Phos Crystals ... Urine Bacteria RARE Urine Mucus 0 SEEN Radiography Diagnostic Testing: Radiology Impression Brain CT 03/19/21 21:06 IMPRESSION: Chronic involutional changes of the brain. Electronically Signed: Ayan Turk MD at 22:24 EDT , Service support , Cervical Spine CT 03/19/21 21:06 IMPRESSION: Multilevel degenerative changes, as described above. Electronically Signed: Ayan Turk MD at 22:28 EDT , Service support , Chest X-Ray 03/19/21 21:35 IMPRESSION: No acute process Electronically Signed: Ayan Turk MD at 22:12 EDT , Service support , Discharge Plan Triage Chief Complaint: Dizziness ED Provider: Zhao Bridges Dx/Rx/DC Orders Instructions: ED BPV Vertigo, ED Degenerative Disk Disease Prescriptions: New meclizine 25 mg tablet 25 mg PO TID Qty: 30 RF: 0 No Action Ultra CoQ10 75 mg capsule 75 mg PO DAILY RF: 0 multivitamin [Multiple Vitamins] Tablet 1 tab PO DAILY RF: 0 atorvastatin 10 mg tablet 10 mg PO DAILY RF: 0 cholecalciferol (vitamin D3) 1,000 UNIT tablet 1,000 unit PO DAILY RF: 0 magnesium amino acid chelate 100 MG tablet 1 tab PO DAILY RF: 0 Primary Care Provider: Doroteo Dominguez Referrals: Doroteo Dominguez MD [Primary Care Provider] - Giovanni De La Fuente DO [STAFF PHYSICIAN] - As soon as possible Disposition Disposition: Home, Self Care
[2021-03-19 21:27] LABS: Absolute Lymphocyte Count 2.77 X10^3/uL (0.83-4.51); Absolute Neutrophil Count 5.4 X10^3/uL (2.0-7.7); Basophil# 0.06 X10^3/uL; Basophil% 0.7 % (0-1); Eosinophil# 0.07 X10^3/uL; Eosinophils% 0.8 % (0-5); Hematocrit 46.1 % (37-47); Hemoglobin 15.4 g/dL (12.0-15.0); Lymphocyte # 2.77 X10^3/ul (0.83-4.51); Lymphocyte % 30.6 % (19-41); Mean Corp Hgb Conc 33.4 g/dL (32-36); Mean Corpuscular Hgb 29.8 pg (27.0-32.0); Mean Corpuscular Volume 89.2 fL (81-99); Monocyte# 0.69 X10^3/uL; Monocyte% 7.6 % (0-10); NRBC Flagged by Analyzer 0 % (0-5); Neutrophil # 5.35 X10^3/uL (2.7-7.7); Neutrophil % 59.2 % (47-70); Platelet Count 233 K/mm3 (150-450); RBC Distribution Width CV 12.6 % (11.6-14.6); RBC Distribution Width SD 41.9 fl (35.1-43.9); Red Blood Count 5.17 M/mm3 (4.2-5.4)
--- NOTE | 2021-03-19 21:35 | RAD_ITS ---
STUDY: X-RAY CHEST REASON FOR EXAM: Female, 80 years old. dizziness TECHNIQUE: Single AP portable view of the chest. COMPARISON: August 20, 2018 FINDINGS: There is hyperinflation of the lungs consistent with chronic obstructive lung disease (COPD). Mild fibrotic changes are seen in the lung bases. No visualized infiltrate. There is no demonstrated pleural abnormality. Normal size heart. Normal mediastinum and andrez. Normal visualized pulmonary arteries. There is atherosclerotic calcification of the aortic arch with tortuosity. There are diffuse degenerative changes of the visualized thoracic spine. Normal visualized ribs, clavicles, and shoulders. There is no demonstrated abnormality of the visualized soft tissue structures of the upper abdomen. RAD/Chest 1 View (Portable) IMPRESSION: No acute process Electronically Signed: Ayan Turk MD at 22:12 EDT , Service support ,
[2021-03-19 21:36] LABS: Anion Gap 10 (5-15); BUN 19 mg/dL (7-18); BUN/Creat Ratio 17.6 RATIO (10-20); Calcium,Total 8.2 mg/dL (8.5-10.1); Chloride 110 mmol/L (98-107); Creatinine, Serum 1.08 mg/dL (0.55-1.02); EST Glomerular Filtration Rate 52 mL/min (>60); Est Glom Filt Rate - Afr Amer 63 mL/min (>60); Estimated Creatinine Clearance 29.84 ml/min; Glucose 141 mg/dL (74-106); Potassium 3.8 mmol/L (3.5-5.1); Sodium Level 141 mmol/L (136-145)
[2021-03-19] MEDS: Meclizine HCl 25 MG Tablet PO (21:39)
[2021-03-19 21:51] LABS: Mucous, Urine 0 SEEN /hpf (<or=2+)
[2021-03-19 21:55] LABS: Color, Urine Yellow (Yellow); Glucose, Dipstick Normal (Normal); Leukocyte Esterase-Dipstick Negative /ul (Negative); Nitrite-Dipstick Negative (Negative); Occult Blood-Urine 50 /ul (Negative); Protein-Dipstick Negative (Negative); Urine Bilirubin Dipstick Negative (Negative); Urine Clarity Sl. Cloudy (Clear); Urine Urobilinogen Normal (Normal)
[2021-03-19 21:56] LABS: Ketone-Dipstick 150 mg/dl (Negative)
[2021-03-19 22:00] LABS: Squamous Epithelial Cells - UA 0-5 SEEN /hpf (5-10)
[2021-03-19 22:02] LABS: Red Blood Cells-Urine 5-10 SEEN /hpf (0-5); White Blood Cells 0-5 SEEN /hpf (0-5)
[2021-03-19 22:03] LABS: Bacteria RARE /hpf (None Seen)
[2021-03-19 22:37] VITALS: BP 122/64; PULSE 83; RESP 20; O2SAT 94
== END 2021-03-19 22:53 | disposition home or self-care (01) ==
PROVIDERS: Emergency Provider Student in an Organized Health Care Education/Training Program; PCP Family Medicine
DX: H81.10 Benign paroxysmal vertigo, unspecified ear (principal); E78.5 Hyperlipidemia, unspecified; Z79.899 Other long term (current) drug therapy
CPT/HCPCS: 70450; 71045; 72125; 80048; 81001; 85025; 93005; 96361; 96372; 96374; 99285; J7030; A4216; J2405

== ENCOUNTER 2021-04-25 10:30 | Outpatient (RCR) | payer MEDICARE, SELFPAY ==
[2020-06-10 12:37] VITALS: BMI 25.4
--- NOTE | 2021-03-23 14:18 | HP.PTEVAL_ITS ---
Patient's Visit Information KAT WICK is a 80 year old F referred to Physical Therapy by Dr. Cecilia Delgado MD with a diagnosis of NECK PAIN. Date of Evaluation: 03/23/21 Physical Therapist: Milena Benavides PT, Cert MDT - Visit Plan Frequency: 2x /Week Duration: 4-6 Weeks Plan: POSTURE CORRECTION/STRENGTHENING, INSTRUCTION IN APPROPRIATE BODY MECHANICS AND ACTIVITY MODIFICATIONS. INEZ UE ROM, STRETCHING AND STRENGTHENING. HEP INSTRUCTION. CONSIDER: START WITH SUBMAX CERVICAL ISOMETRICS. REP RET IN SITTING. REP RET IN LYING. SCAP SQUEEZES. DEEP NECK FLEXOR LIFT. PRONE W'S. UE WALL SLIDES. PRONE ROWS. UE TBAND WALL WALKS. ANTERIOR/MIDDLE SCALENE STRETCH. UPPER TRAP STRETCH. LEVATOR SCAPULAE STRETCH. CHEST/PEC MAJOR AND MINOR STRETCH - Subjective Diagnosis: NECK PAIN. Work/Leisure: RETIRED. Disability: NO. Present symptoms: INEZ NECK PAIN. PAIN IN SHOULDER BLADES. TINGLING IN FINGER TIPS. Present since: SINCE CHILDHOOD. Pain Scale: Worst - 8/10 Least - 3/10. Currently: 10. Commenced as a result of: POSSIBLY DUE TO NECESSARY TREATMENT FOR HOLLOWAY IN CHILDHOOD. Worse: SITTING, WATCHING TV, TRYING TO READ, LAYING NECK BACK AGAINST RECLINER. Better: BEING STILL. Disturbed sleep: YES. R RAYMONDRTS SHE HAS BEEN HAVING TROUBLE SLEEPING FOR A YEAR AND A HALF. PROPS UP ON TWO PILLOWS AND SEMI-RELCINES. Previous history/Previous treatment: NO NECK SURGERY. NO NECK INJECTIONS. NO PT. NO CHIROPRACTOR. This episode: PT CONSULT ONLY. STATES HER EARS WERE EXPLODING THE DAY SHE SAW DR. DELGADO. Dizziness: NO. Tinnitis: YES. Nausea: NO. Shortness of Breath: NO. Difficulty Swollowing: NO. Gait: PATIENT REPORTS IT IS NORMAL. Accidents: NO. Unexplained weight loss: NO. Imaging: STUDY: CT CERVICAL SPINE WITHOUT CONTRAST. REASON FOR EXAM: Female, 80 years old. Neck pain. RADIATION DOSAGE (If Supplied By Facility): CTDIvol = ( 15.16 ) mGy, DLP =. ( 286.84 ) mGycm. TECHNIQUE: High resolution transaxial imaging was performed without. contrast material. Sagittal and coronal images were reconstructed. Individualized dose optimization techniques were used for this CT. COMPARISON: None. . FINDINGS: Normal craniovertebral junction. Normal anterior atlantoaxial articulation. Normal odontoid process. There is reversal of the normal cervical lordosis. Mild to moderate multilevel degenerative changes are present. Mild central. canal stenosis is seen at several levels. No visualized acute fracture or compression deformity. Listhesis of 2 to 3 mm is seen at several levels. Unremarkable visualized soft tissue structures. . CT/Spine Cervical without Contras. IMPRESSION: Multilevel degenerative changes, as described above. . Electronically Signed: Ayan Turk MD. at 22:28 EDT. PMH/Recent major surgery: INTENSITAL SURGERY DUE TO BLOCKAGE 2 YEARS AGO WITH COMPLICATIONS PER PATIENT REPORT. HTN. OTHER: PATIENT REPORTS SHE WAS IN THE ED SUNDAY WITH VERTIGO AND SHE WAS VERY SICK AND VOMITING. 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 HAS BEEN REFERRED TO DR. GANDHI. RECEIVED MEDICINE IN ED THAT IS HELPING HER DIZZINESS AND NAUSEA. WAITING FOR A CALL BACK FROM DR. GANDHI OFFICE FOR YOANNA'T. 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 DID OK AT SILVER SNEAKERS YESTERDAY. - Objective Sitting Posture/Standing Posture: FH. SCOLIOSIS. LEFT SHLD HIGHER THAN RIGHT. Active Correction of posture: BETTER. Other Observations: INDEP GAIT AND TRANSFERS. Motor deficit: INEZ UE'S WFL BUT INEZ SCAPULAR WEAKNESS GRADED 4-/5. Sensory deficit: INEZ UE LIGHT TOUCH SENSATION INTACT AND SYMMETRICAL. ROM deficit: INEZ UE'S WFL. Reflexes: 2/3 INEZ UE'S. Dural Signs: POSITIVE INEZ UE'S. Cervical Mvmt Loss: Flex: NIL. Pro: NIL. Ext: MOD. Ret: EDWARD. RSB: MOD. LSB: MOD. R Rot: MOD. L Rot: MOD. Postural strength: POOR. Palpation: NO ACUTE TENDERNESS WITH PALPATION OF THE UPPER THORACIC, CERVICAL OR OCCIPUT REGIONS. INCREASED MUSCLE TONE INEZ CERVICAL MUSCULATURE. TREATMENT: NEUROMUSCULAR REEDUCATION - RETRAINING OF MVMT AND POSTURE FOR SITTING, LYING AND STANDING ACTIVITIES. - Goals Goal 1:: DECREASE C/O NECK PAIN AND INEZ UE SX'S. Goal Time Frame: 4-6 Weeks Goal 2:: IMPROVE READING, SLEEP, WORK, DRIVING AND RECREATIONAL FUNCTION Goal Time Frame: 4-6 Weeks Goal 3:: INSTRUCT IN PROPHYLAXIS Goal Time Frame: 4-6 Weeks - Anticipated Interventions Patient/Client Instruction: Educate patient on: Condition, Plan of Care, Risk Factors For the Purpose of:: To improve self management Therapeutic Exercise to Include: Strength training, Body mechanics, Postural training, Flexibilty training, Neuromotor development, Scapular Strength/Stabilization For the Purpose of:: To decrease pain, To increase ROM, To improve muscle performance and motor function, To increase tolerance to activity/condition/position, To improve ability of physical actions for home/community/work/leisure Cryotherapy (ice pack, ice massage): Yes Thermo therapy (hot pack): Yes Ultrasound (thermal/non thermal): Yes For the Purpose of:: To decrease pain, To improve nutrient delivery to tissue Thank you for the opportunity to evaluate your patient. For Medicare and Medicare HMO plans, please review the plan of care and approve it. It will need to be FAXED BACK to us at [phone] for Medicare purposes. For Medicare only, by signing this I certify the plan of care. Please let me know if there are questions or concerns regarding this plan of ca re. Physician Signature: Date:
--- NOTE | 2021-04-25 10:58 | HP.PTDCSUM ---
It has been my pleasure to treat KAT WICK referred by Dr. Cecilia Delgado MD, with the diagnosis of NECK PAIN for a total of 9 visit(s). Discharge Date: Please see the following information for a summary of their discharge status. Subjective: PATIENT REPORTS SHE IS MUCH BETTER. ALMOST NO TINGLING NOW. STATES THE ROM IN HER NECK IS BETTER AND SITTING AND LYING DOWN ARE COMFORTABLE NOW. PATIENT REPORTS SHE IS DONG MUCH BETTER. STILL WAKES UP AFTER ABOUT 6 HOURS BUT NOT DUE TO NECK PAIN NOW. PATIENT REPORTS IT IS AMAZING TO HER HOW MUCH THERAPY HAS HELPED. NO LONGER HAVING EAR PAIN. Neck pain Pain Intensity (Out of 10): 0 % Improvement: 96 Objective/Function: PATIENT WAS SEEN TODAY FOR RE-ASSESSMENT OF PROGRESS TOWARD THE SET PT GOALS AND THE NEED FOR FURTHER PHYSICAL THERAPY VS READINESS FOR DISCHARGE. ALL GOALS HAVE BEEN MET AND PATIENT IS INDEP WITH EX PROGRAMS. SHE IS APPROPRIATE FOR DISCHARGE AT THIS TIME AND PATIENT IS AGREEABLE. NECK ROM HAS IMRPOVED. INEZ UE ROM AND STRENGTH HAVE IMPROVED. PATIENT DENIES PAIN, NUMBNESS OR TINGLING WITH TESTING TODAY. Goal 1:: DECREASE C/O NECK PAIN AND INEZ UE SX'S. Goal Progress: Goal Met Goal 2:: IMPROVE READING, SLEEP, WORK, DRIVING AND RECREATIONAL FUNCTION Goal Progress: Goal Met Goal 3:: INSTRUCT IN PROPHYLAXIS Goal Progress: Goal Met Plan: D/C TO INDEP EX. PATIENT IS AGREEABLE. If there are questions or concerns regarding this patient's physical therapy, please feel free to call me at [phone]. Thank you for the referral of this patient. Sincerely, Milena Benavides, PT, Cert MDT Balance/Gait/Functional tests - Balance/Special Test Scores Oswestry Neck Score: 3
== END 2021-04-25 15:49 | disposition home or self-care (01) ==
LOC: PT 10:30
PROVIDERS: PCP Family Medicine; Referring Provider Family Medicine; Visit Provider Family Medicine
DX: M54.2 Cervicalgia (principal)
CPT/HCPCS: 97035; 97110; 97112; 97162; 97164

== ENCOUNTER → 2021-06-20 07:33 | Outpatient (CLI) | payer MEDICARE, SELFPAY ==
--- NOTE | 2021-06-20 07:35 | BI_ITS ---
MAMMOGRAPHY - BILATERAL SCREENING REASON FOR EXAM: Female, 80 years old. Routine annual screening examination. PERTINENT HISTORY: Non-contributory. TECHNIQUE: Digital bilateral breast jim (3D mammographic acquisition) in the CC and MLO projections. 2-D mediolateral oblique (MLO) and craniocaudad (CC) views of both breasts were obtained. CAD: Full Field Digital Mammography with Computer Added Detection was performed. COMPARISON: Comparison is made with prior examination dated 09/15/2019 and 09/12/2018. FINDINGS: Breast Composition: There are scattered areas of fibroglandular density. There are no dominant masses or suspicious calcifications. Stable small benign appearing bilateral axillary lymph nodes. No other significant abnormalities are identified. There has been no significant change since the prior study. BI/SCRN MAMM (CAD)W/JIM BILAT IMPRESSION: Stable bilateral screening mammogram. Yearly follow-up mammogram recommended. (A) ASSESSMENT CATEGORY: BIRADS Category 2: Benign. A letter regarding these results will be sent to the patient by the facility within 30 days. Approximately 10% of breast cancers are not detected by mammography. A normal mammogram should not delay biopsy of a clinically suspicious abnormality. [id number] Electronically Signed: Dominic Haywood MD at 8:42 EDT , Service support ,
== END ==
PROVIDERS: PCP Family Medicine; Referring Provider Obstetrics & Gynecology; Visit Provider Obstetrics & Gynecology
DX: Z12.31 Encounter for screening mammogram for malignant neoplasm of breast (principal)
CPT/HCPCS: 77063; 77067

== ENCOUNTER → 2022-07-10 | Outpatient (CLI) | payer MEDICARE, SELFPAY ==
--- NOTE | 2022-07-10 12:12 | BI_ITS ---
MAMMOGRAPHY - BILATERAL SCREENING REASON FOR EXAM: Female, 82 years old. Routine annual screening examination. PERTINENT HISTORY: Non-contributory. TECHNIQUE: Digital bilateral breast jim (3D mammographic acquisition) in the CC and MLO projections. 2-D mediolateral oblique (MLO) and craniocaudad (CC) views of both breasts were obtained. CAD: Full Field Digital Mammography with Computer Added Detection was performed. COMPARISON: Comparison is made with prior study dated 06/20/2021 and 09/15/2019. FINDINGS: Breast Composition: The breasts are almost entirely fatty. There are no dominant masses or suspicious calcifications. Stable small benign-appearing bilateral axillary No other significant abnormalities are identified. There has been no significant change since the prior study. BI/SCRN MAMM (CAD)W/JIM BILAT IMPRESSION: Stable bilateral screening mammogram. Yearly follow-up mammogram recommended. (A) ASSESSMENT CATEGORY: BIRADS Category 2: Benign. A letter regarding these results will be sent to the patient by the facility within 30 days. Approximately 10% of breast cancers are not detected by mammography. A normal mammogram should not delay biopsy of a clinically suspicious abnormality. [id number] Electronically Signed: Dominic Haywood MD at 12:46 EST ,
[2022-07-10 17:58] LABS: Absolute Lymphocyte Count 1.98 X10^3/uL (0.83-4.51); Absolute Neutrophil Count 3.9 X10^3/uL (2.0-7.7); Basophil# 0.07 X10^3/uL; Eosinophil# 0.22 X10^3/uL; Eosinophils% 3.2 % (0-5); Hematocrit 47.1 % (37-47); Hemoglobin 15.2 g/dL (12.0-15.0); Lymphocyte # 1.98 X10^3/ul (0.83-4.51); Lymphocyte % 28.4 % (19-41); Mean Corp Hgb Conc 32.3 g/dL (32-36); Mean Corpuscular Hgb 30.1 pg (27.0-32.0); Mean Corpuscular Volume 93.3 fL (81-99); Mean Platelet Vol. 11.1 fl (6.2-12.0); Monocyte# 0.72 X10^3/uL; Monocyte% 10.3 % (0-10); NRBC Flagged by Analyzer 0 % (0-5); Neutrophil # 3.91 X10^3/uL (2.7-7.7); Neutrophil % 56.2 % (47-70); Platelet Count 252 K/mm3 (150-450); RBC Distribution Width CV 13.2 % (11.6-14.6); RBC Distribution Width SD 45.1 fl (35.1-43.9); Red Blood Count 5.05 M/mm3 (4.2-5.4)
[2022-07-10 18:00] LABS: ALB/GLOB Ratio 0.9 RATIO (0.9-2.4); AST(SGOT) 23 U/L (15-37); Alanine Aminotransfer ALT/SGPT 24 U/L (13-56); Albumin, Serum 3.3 g/dL (3.2-5.0); Alkaline Phosphatase 58 U/L (45-117); Anion Gap 6 (5-15); BUN 17 mg/dL (7-18); BUN/Creat Ratio 15.2 RATIO (10-20); Calcium,Total 8.5 mg/dL (8.5-10.1); Chloride 110 mmol/L (98-107); Creatinine, Serum 1.12 mg/dL (0.55-1.02); EST Glomerular Filtration Rate 50 mL/min (>60); Est Glom Filt Rate - Afr Amer 60 mL/min (>60); Globulin 3.5 g/dL (2.2-4.2); Glucose 164 mg/dL (74-106); Protein, Total 6.8 g/dL (6.4-8.2); Sodium Level 141 mmol/L (136-145); Thyroid Stim Hormone (TSH) 3.47 uIU/mL (0.358-3.74)
== END | disposition home or self-care (01) ==
LOC: OPBD 11:58
PROVIDERS: PCP Family Medicine; Visit Provider Family Medicine
DX: Z12.31 Encounter for screening mammogram for malignant neoplasm of breast (principal); R42 Dizziness and giddiness; M81.0 Age-related osteoporosis without current pathological fracture
CPT/HCPCS: 36415; 77063; 77067; 80053; 84443; 85025

== ENCOUNTER → 2022-07-26 | Outpatient (CLI) | payer MEDICARE, SELFPAY ==
--- NOTE | 2022-07-26 08:46 | CDU_ITS ---
Reason For Study: DIZZINESS Rt. Velocities/BP Lt. Velocities/BP Prox CCA 137.5/26.1 cm/sec. Prox CCA 141.7/26.7 cm/sec. Mid CCA 117.3/16.8 cm/sec. Mid CCA 112.5/19.4 cm/sec. Dist CCA 99.0/16.8 cm/sec. Dist CCA 125.3/28.5 cm/sec. Prox ICA 89.5/7.2 cm/sec. Prox ICA 85.5/16.1 cm/sec. Mid ICA 88.3/17.1 cm/sec. Mid ICA 102.1/25.4 cm/sec. Dist ICA 66.2/15.8 cm/sec. Dist ICA 120.4/29.0 cm/sec. Rt. ICA/CCA = 89.5/117.3=0.8. Lt. ICA/CCA = 120.4/112.5=1.1. Prox ECA 254.1/21.3 cm/sec. Prox ECA 96.1/4.7 cm/sec. Rt. Vert. 78.5/19.5 cm/sec. Lt. Vert. 87.5/23.6 cm/sec. Right Extracranial There is intimal thickening but no significant atherosclerotic plaque noted in the right common carotid artery. There is homogeneous, smooth atherosclerotic plaque noted in the right internal carotid artery. There is intimal thickening but no significant atherosclerotic plaque noted in the right external carotid artery. The right external carotid artery is tortuous. Antegrade flow is noted in the right vertebral artery. Left Extracranial There is intimal thickening but no significant atherosclerotic plaque noted in the left common carotid artery. There is intimal thickening but no significant atherosclerotic plaque noted in the left internal carotid artery. There is intimal thickening but no significant atherosclerotic plaque noted in the left external carotid artery. Antegrade flow is noted in the left vertebral artery. Procedure Carotid Duplex [id number]. This is a Carotid Duplex examination using B-mode, color flow and specral Doppler. The study was technically difficult. Due to tortuosity of the right carotid bifurcation and right ECA. Exam performed in department. VL/Carotid Duplex Ultrasound Interpretation Summary Mild (<50%) stenosis right extracranial internal carotid. Normal left extracranial internal carotid. Patent and antegrade vertebrals bilaterally. Ordering Physician: Doroteo Dominguez Referring Physician: Doroteo Dominguez Performed By: Rivka Torres, EDGAR, RVT
== END | disposition home or self-care (01) ==
LOC: CVS 08:45
PROVIDERS: PCP Family Medicine; Visit Provider Family Medicine
DX: M48.02 Spinal stenosis, cervical region (principal); R42 Dizziness and giddiness
CPT/HCPCS: 93880

== ENCOUNTER → 2022-09-21 | Outpatient (CLI) | payer MEDICARE, SELFPAY ==
--- NOTE | 2022-09-21 13:22 | CT_ITS ---
STUDY: CT BRAIN WITHOUT CONTRAST REASON FOR EXAM: Female, 82 years old. head pressure, ear pain, worsening sudden onset tinnitus and hear RADIATION DOSAGE (If Supplied By Facility): CTDIvol = ( 47.06 ) mGy, DLP = ( 837.39 ) mGycm TECHNIQUE: Transaxial CT imaging of the brain was performed without administration of intravenous contrast material. Individualized dose optimization techniques were used for this CT. COMPARISON: Comparison is made with prior study dated 03/19/2021. FINDINGS: Normal soft tissue structures. Normal calvarium. There is mild cerebral atrophy with widening of the extra-axial spaces and ventricular dilatation. There are areas of decreased attenuation within the white matter tracts of the supratentorial brain, consistent with microvascular disease changes. There are small punctate calcifications of the basal ganglia which are seen in the aging brain as a normal variant. Normal brainstem. Normal cerebellum. There is no intracranial hemorrhage. There are no findings of an acute ischemic infarction. Normal visualized paranasal sinuses. CT/Brain/Head without Contrast IMPRESSION: Chronic involutional changes of the brain. Electronically Signed: Dominic Haywood MD at 14:25 EST ,
--- NOTE | 2022-09-21 13:22 | CT_ITS ---
STUDY: CT FACIAL BONES WITHOUT CONTRAST REASON FOR EXAM: Female, 82 years old. Chronic congestion uniproved with treatment RADIATION DOSAGE (If Supplied By Facility): CTDIvol = ( 25.01 ) mGy, DLP = ( 523.64 ) mGycm TECHNIQUE: The patient was scanned in a multi detector CT scanner. Sagittal and coronal images were reconstructed. Individualized dose optimization techniques were used for this CT. COMPARISON: None. FINDINGS: Normal soft tissue structures. Hypertrophy of the inferior turbinate in the right nasal fossa. Normal orbital noel and orbital contents. Normal nasal bones and anterior nasal spine. Normal facial bones. There is no demonstrated fracture. Normal visualized paranasal sinuses. CT/Sinus/Facial Bone IMPRESSION: Sinuses are clear. Hypertrophy of the right inferior turbinate. Electronically Signed: Dominic Haywood MD at 14:26 EST ,
== END | disposition home or self-care (01) ==
LOC: CT 13:21
PROVIDERS: PCP Family Medicine; Referring Provider Family Medicine; Visit Provider Family Medicine
DX: H93.13 Tinnitus, bilateral (principal); R09.81 Nasal congestion
CPT/HCPCS: 70450; 70486

== ENCOUNTER 2022-10-24 18:05 | Emergency (ER) | payer MEDICARE, SELFPAY ==
[2022-10-24 18:05] VITALS: BP 122/75; PULSE 98; RESP 16; TEMP 36.4; O2SAT 94; BMI 26.2
--- NOTE | 2022-10-24 18:32 | CT_ITS ---
STUDY: CT ABDOMEN AND PELVIS WITHOUT CONTRAST REASON FOR EXAM: Female, 82 years old. Diarrhea RADIATION DOSAGE (If Supplied By Facility): CTDIvol = ( 6.11 ) mGy, DLP = ( 288.63 ) mGycm TECHNIQUE: Transaxial images were obtained from the dome of the diaphragm to the symphysis pubis without oral contrast, and without intravenous contrast. Sagittal and coronal images were reconstructed. Individualized dose optimization techniques were used for this CT. COMPARISON: August 22, 2018 CT abdomen and pelvis FINDINGS: The visualized lung bases are unremarkable. The visualized portions of the heart are within normal limits. 9 mm simple cyst left lobe of the liver appears more conspicuous. Normal gallbladder and extrahepatic biliary system. Normal spleen. Normal pancreas. Normal bilateral adrenal glands. 15 mm simple right renal cortical cyst with peripheral calcification unchanged. Normal left kidney. Normal visualized stomach. Normal small intestine. Anastomotic sutures rectosigmoid colon. The appendix is visualized and appears normal. Calcified plaque along the aorta and its branches. Normal inferior vena cava. Normal retroperitoneum. Normal urinary bladder. Uterus normal. Normal abdominal wall. Mild scoliosis. CT/Abdomen/Pelvis without Cont IMPRESSION: No acute disease. Sensitivity limited without IV and oral contrast. Electronically Signed: Tyrell Lujan MD at 19:34 EST ,
[2022-10-24] MEDS: 0.9% Normal Saline 1,000 ML 1000 ML IV (18:43)
[2022-10-24 18:46] LABS: Absolute Lymphocyte Count 1.58 X10^3/uL (0.83-4.51); Absolute Neutrophil Count 4.6 X10^3/uL (2.0-7.7); Basophil# 0.04 X10^3/uL; Basophil% 0.5 % (0-1); Eosinophil# 0.07 X10^3/uL; Eosinophils% 0.9 % (0-5); Hematocrit 49.8 % (37-47); Hemoglobin 16.7 g/dL (12.0-15.0); Lymphocyte # 1.58 X10^3/ul (0.83-4.51); Lymphocyte % 20.7 % (19-41); Mean Corp Hgb Conc 33.5 g/dL (32-36); Mean Corpuscular Hgb 29.9 pg (27.0-32.0); Mean Corpuscular Volume 89.2 fL (81-99); Mean Platelet Vol. 10.7 fl (6.2-12.0); Monocyte# 1.25 X10^3/uL; Monocyte% 16.4 % (0-10); NRBC Flagged by Analyzer 0 % (0-5); Neutrophil # 4.63 X10^3/uL (2.7-7.7); Neutrophil % 60.6 % (47-70); Platelet Count 222 K/mm3 (150-450); RBC Distribution Width CV 13.7 % (11.6-14.6); Red Blood Count 5.58 M/mm3 (4.2-5.4); White Blood Count 7.6 K/mm3 (4.4-11.0)
[2022-10-24 19:04] LABS: AST(SGOT) 31 U/L (15-37); Alanine Aminotransfer ALT/SGPT 26 U/L (13-56); Albumin, Serum 3.8 g/dL (3.2-5.0); Alkaline Phosphatase 65 U/L (45-117); Anion Gap 11 (5-15); BUN 32 mg/dL (7-18); BUN/Creat Ratio 18.4 RATIO (10-20); Chloride 108 mmol/L (98-107); Creatinine, Serum 1.74 mg/dL (0.55-1.02); EST Glomerular Filtration Rate 30 mL/min (>60); Est Glom Filt Rate - Afr Amer 36 mL/min (>60); Estimated Creatinine Clearance 17.91 ml/min; Globulin 3.8 g/dL (2.2-4.2); Glucose 119 mg/dL (74-106); Lipase 103 U/L (73-393); Potassium 3.5 mmol/L (3.5-5.1); Protein, Total 7.6 g/dL (6.4-8.2); Sodium Level 139 mmol/L (136-145)
[2022-10-24 20:14] VITALS: RESP 15; O2SAT 95
--- NOTE | 2022-10-24 20:25 | EDS_ITS ---
HPI HPI - GI History of Present Illness Chief Complaint: Abd Pain Narrative Narrative: 82-year-old female presents with diarrhea that she has had since Sunday. Her symptoms began approximately 3 days ago. She might have mild nausea and vomited once, but she denies any severe abdominal pain. She states that her stool is liquid and she has to go so frequently, that sometimes she does not make it to the bathroom and soils herself. She denies any fevers or chills but may feel slight weakness generally. No recent antibiotic use. No blood in her emesis or in her stool. No true exacerbating or alleviating factors. [facility] Medical History bunion surgery Hyperlipidemia Home Medications cholecalciferol (vitamin D3) 25 mcg (1,000 unit) tablet 1,000 unit PO DAILY SUPPLEMENT 08/14/18 [History Last Taken Unknown] magnesium amino acid chelate 100 mg tablet 1 tab PO DAILY SUPPLEMENT 10/16/18 [History Last Taken Unknown] atorvastatin 10 mg tablet 10 mg PO DAILY 06/10/20 [History Last Taken Unknown] coenzyme Q10 75 mg capsule (Ultra CoQ10) 75 mg PO DAILY 06/10/20 [History Last Taken Unknown] multivitamin (Multiple Vitamins tablet) 1 tab PO DAILY 06/10/20 [History Last Taken Unknown] meclizine 25 mg tablet 25 mg PO TID #30 tabs 03/19/21 [Rx Last Taken Unknown] Allergy/AdvReac Type Severity Reaction Status Date / Time Iodine and Iodide Containing Allergy Rash Verified 10/24/22 18:07 Produc latex Allergy Rash Verified 10/24/22 18:07 adhesive AdvReac Rash Verified 10/24/22 18:07 amoxicillin [From Augmentin] AdvReac Diarrhea Verified 10/24/22 18:07 clavulanic acid AdvReac Diarrhea Verified 10/24/22 18:07 [From Augmentin] Family History Mother Hypertension Surgical History H/O colectomy H/O removal of cyst History of surgical removal of intestinal structure Hx of removal of ovary Social History household members: spouse housing: house Smoking Status: Never smoker alcohol intake: never substance use type: does not use what type of physical activity do you participate in: swimming and aerobics frequency: 3-4 times per week seatbelt use: always do you feel safe at home: Yes ROS ROS ED ROS Narrative Constitutional: No fever, no chills. Generalized weakness. HEENT: No sore throat. No neck pain. No loss of vision. No rhinorrhea. Cardiovascular: No chest pain. No palpitations. No pedal edema. Respiratory: No cough, no shortness of breath. Abdominal: No abdominal pain. 1 episode of nausea and vomiting in the last few days. Multiple episodes of liquid stool, nonbloody over the last 24 hours espec ially. Genitourinary: No dysuria. No hematuria. Musculoskeletal: No myalgias. No arthralgias. Neurologic: No headaches. No dizziness. No lightheadedness. Skin: No rash. No change in color. Psychiatric: No depression. No anxiety. EXAM Physical Exam Narrative Exam Narrative: Afebrile. Vital signs noted. HEENT: Normocephalic. Atraumatic. PERRL, EOMI. Neck soft and supple. No point tenderness or step off. Cardiovascular: Regular rate and rhythm. No murmurs, rubs, or gallops appreciated. Respiratory: No tachypnea. Lungs clear to auscultation bilaterally. Gastrointestinal: Abdomen soft, minimal diffuse tenderness, with normoactive bowel sounds. No rebound or guarding. Neurological: Awake. Alert. Nonfocal, nonlateralizing. Skin: No rash. Normal color. No pallor. Musculoskeletal: No pedal edema. Full range of motion extremities. Const Vital Signs: 10/24/22 18:05 10/24/22 20:14 Temperature 97.5 F L Temperature Source Temporal Pulse Rate 98 Respiratory Rate 16 15 Blood Pressure 122/75 H Blood Pressure Mean 90 Pulse Ox 94 95 Oxygen Delivery Method Room Air Room Air MDM MDM MDM Narrative Medical decision making narrative: Comprehensive work-up was pursued. I do not feel that she necessarily has C. difficile as she does not have recent antibiotic use. I reviewed her laboratory work which demonstrates a normal white count of 7.6, hemoglobin slightly hemoconcentrated at 16.7, platelet count normal at 222. I reviewed her CMP which shows sodium normal at 139 with potassium 3.5, BUN slightly elevated at 32 with creatinine of 1.74 but she does have chronic kidney injury on her laboratory work. Glucose appropriately elevated at 119. Normal anion gap of 11. ALT and AST are normal at 26 and 31. Lipase normal at 103. CT imaging was obtained without IV contrast as she has an allergy to iodine. There is no acute process in review of the radiology report, no evidence of obstruction. She did give a stool sample which was sent for stool studies. She has a negative lactoferrin currently. Her C. difficile and others are pending. Upon repeat examination after normal saline IV fluid bolus of 1 L, she states she feels improved. I feel she can be discharged safely home with follow-up. Return ins tructions to the emergency department were reviewed. She will follow-up with her primary care provider. I do not feel that antibiotics for her diarrhea are indicated currently. Disposition is discharged in stable condition. Lab Data Attestation: I reviewed the patient's lab results. Labs: Laboratory Results - last 24 hr 10/24/22 10/24/22 18:25 18:25 WBC 7.6 RBC 5.58 H Hgb 16.7 H Hct 49.8 H MCV 89.2 MCH 29.9 MCHC 33.5 RDW Std Deviation 45.0 H RDW Coeff of Marshall 13.7 Plt Count 222 MPV 10.7 Immature Gran % (Auto) 0.900 Neut % (Auto) 60.6 Lymph % (Auto) 20.7 Mills % (Auto) 16.4 H Eos % (Auto) 0.9 Baso % (Auto) 0.5 Absolute Neuts (auto) 4.6 Absolute Lymphs (auto) 1.58 Nucleated RBC % 0 Sodium 139 Potassium 3.5 Chloride 108 H Carbon Dioxide 20.0 L Anion Gap 11 BUN 32 H Creatinine 1.74 H Estim Creat Clear Calc 17.91 Est GFR (MDRD) Af Amer 36 L Est GFR (MDRD) Non-Af 30 L BUN/Creatinine Ratio 18.4 Glucose 119 H Calcium 9.0 Total Bilirubin 0.80 AST 31 ALT 26 Alkaline Phosphatase 65 Total Protein 7.6 Albumin 3.8 Globulin 3.8 Albumin/Globulin Ratio 1.0 Lipase 103 Radiography Diagnostic Testing: Clinical Impression(s) from Imaging Studies Abdomen/Pelvis CT 10/24/22 18:32 IMPRESSION: No acute disease. Sensitivity limited without IV and oral contrast. Electronically Signed: Tyrell Lujan MD at 19:34 EST Reading Location ID and State: [address] [place] [address] , Service support , Discharge Plan Triage Chief Complaint: Abd Pain Other Complaint: Nausea/Vomiting/Diarrhea ED Provider: Víctor Quispe Dx/Rx/DC Orders Clinical Impression: Diarrhea, Abdominal pain Instructions: ED Abdominal Pain Unkn Cause Fem, ED Diarrhea, Unknown Cause Prescriptions: No Action Ultra CoQ10 75 mg capsule 75 mg PO DAILY multivitamin [Multiple Vitamins] Tablet 1 tab PO DAILY atorvastatin 10 mg tablet 10 mg PO DAILY cholecalciferol (vitamin D3) 1,000 UNIT tablet 1,000 unit PO DAILY magnesium amino acid chelate 100 MG tablet 1 tab PO DAILY meclizine 25 mg tablet 25 mg PO TID Qty: 30 0RF Primary Care Provider: Doroteo Dominguez Referrals: Doroteo Dominguez MD [Primary Care Provider] - 1-2 Days if not improving Disposition Disposition: Home, Self Care
--- NOTE | 2022-10-25 13:25 | ED.RN ---
THIS RN SPOKE VIA TELEPHONE WITH PT REGARDING POSITIVE ROTOVIRUS. SHE VERBALIZES UNDERSTANDING OF VIRUS AND TREATMENT PLAN OF SUPPORTIVE CARE. F/UP WITH OR RETURN TO ED WITH WORSENING SYMPTOMS OR DEHYDRATION. NO FURTHER QUESTIONS.
== END 2022-10-24 21:15 | disposition home or self-care (01) ==
PROVIDERS: Emergency Provider Emergency Medicine; PCP Family Medicine; Visit Provider Emergency Medicine
DX: R19.7 Diarrhea, unspecified (principal); R10.9 Unspecified abdominal pain
CPT/HCPCS: 74176; 80053; 83630; 83690; 85025; 87177; 87209; 87493; 87506; 99283

== ENCOUNTER → 2022-11-16 | Outpatient (CLI) | payer MEDICARE, SELFPAY ==
--- NOTE | 2022-11-16 13:21 | BD_ITS ---
STUDY: DUAL ENERGY X-RAY ABSORPTIOMETRY / DXA REASON FOR EXAM: Female, 82 years old. 733.00OsteoporosisBONE DENSITY REASON FOR EXAM TECHNIQUE: Bone Mineral Density (BMD) measurements of lumbar spine and bilateral hips were obtained. COMPARISON: Comparison is made with prior study dated September 15, 2020. FINDINGS: Lumbar Spine (L1-L4): g/cm2 (0.800) / T-score (-2.0) / Z-score (0.7) Findings are suggestive of osteopenia with a moderate fracture risk. Left Femur Total: g/cm2 (0.676) / T-score (-2.2) / Z-score (0.0) Left Femoral Neck: g/cm2 (0.620) / T-score (-2.1) / Z-score (0.3) Right Femur Total: g/cm2 (0.684) / T-score (-2.1) / Z-score (0.1) Right Femoral Neck: g/cm2 (0.592) / T-score (-2.3) / Z-score (0.1) The T-Scores on the most recent prior examination were: Lumbar Spine (L1-L4): There has been worsening of bone density since the previous examination. Left Femur Total: which represents an improvement of 5.3%. Right Femur Total: which represents an improvement of 5.8%. BD/Dexa Bone Density Study IMPRESSION: The patient is considered osteopenic as outlined below according to World Saleem Organization (WHO) criteria with a high fracture risk. There has been improvement of bone density since the previous examination. Reference Information: The T-score is the number of standard deviations above or below the standard which is normal for young adults at their peak bone mineral density. The World Health Organization (WHO) interprets the T-scores as follows: Above -1 Normal bone density Between -1 and -2.5 Osteopenia Equal to / or below -2.5 Osteoporosis As a practical clinical guideline, osteopenia may be graded as follows: Mild -1 through -1.5 Moderate -1.6 through -2.0 Severe -2.1 through -2.4 The Z-score is the number of standard deviations above or below age-matched controls. A Z-score of less than -1.5 would be considered abnormal. References: 1. NIH Osteoporosis and Related Bone Diseases www osteo.org 2. International Society for Clinical Densitometry www iscd.org 3. National Osteoporosis Foundation www nof.org Electronically Signed: Dominic Haywood MD at 9:38 EDT ,
== END | disposition home or self-care (01) ==
LOC: OPBD 13:19
PROVIDERS: PCP Family Medicine; Visit Provider Family Medicine
DX: M81.0 Age-related osteoporosis without current pathological fracture (principal)
CPT/HCPCS: 77080

== ENCOUNTER → 2023-08-03 | Outpatient (CLI) | payer MEDICARE, SELFPAY ==
--- NOTE | 2023-08-03 11:50 | BI_ITS ---
MAMMOGRAPHY - BILATERAL SCREENING REASON FOR EXAM: Female, 83 years old. Routine annual screening examination. PERTINENT HISTORY: Non-contributory. TECHNIQUE: Digital bilateral breast jim (3D mammographic acquisition) in the CC and MLO projections. 2-D mediolateral oblique (MLO) and craniocaudad (CC) views of both breasts were obtained. CAD: Full Field Digital Mammography with Computer Added Detection was performed. COMPARISON: Comparison is made with prior study July 10, 2022 and June 20, 2021. FINDINGS: Breast Composition: There are scattered areas of fibroglandular density. There are no dominant masses or suspicious calcifications. Stable benign-appearing bilateral axillary lymph nodes. No other significant abnormalities are identified. There has been no significant change since the prior study. BI/SCRN MAMM (CAD)W/JIM BILAT IMPRESSION: Stable bilateral screening mammogram. Yearly follow-up mammogram recommended. (A) ASSESSMENT CATEGORY: BIRADS Category 2: Benign. A letter regarding these results will be sent to the patient by the facility within 30 days. Approximately 10% of breast cancers are not detected by mammography. A normal mammogram should not delay biopsy of a clinically suspicious abnormality. [id number] Electronically Signed: Dominic Haywood MD at 13:51 EST ,
== END | disposition home or self-care (01) ==
LOC: OPBI 11:48
PROVIDERS: PCP Family Medicine; Visit Provider Family Medicine
DX: Z12.31 Encounter for screening mammogram for malignant neoplasm of breast (principal)
CPT/HCPCS: 77063; 77067

== ENCOUNTER → 2024-01-17 | Outpatient (CLI) | payer MEDICARE, SELFPAY ==
[2024-01-17 10:04] LABS: Absolute Lymphocyte Count 2.06 X10^3/uL (0.83-4.51); Absolute Neutrophil Count 3.1 X10^3/uL (2.0-7.7); Basophil# 0.08 X10^3/uL; Basophil% 1.3 % (0-1); Eosinophil# 0.16 X10^3/uL; Eosinophils% 2.7 % (0-5); Hematocrit 45.9 % (37-47); Hemoglobin 14.8 g/dL (12.0-15.0); Lymphocyte # 2.06 X10^3/ul (0.83-4.51); Lymphocyte % 34.4 % (19-41); Mean Corp Hgb Conc 32.2 g/dL (32-36); Mean Corpuscular Hgb 29.2 pg (27.0-32.0); Mean Corpuscular Volume 90.7 fL (81-99); Mean Platelet Vol. 11.4 fl (6.2-12.0); Monocyte# 0.57 X10^3/uL; Monocyte% 9.5 % (0-10); NRBC Flagged by Analyzer 0 % (0-5); Neutrophil # 3.07 X10^3/uL (2.7-7.7); Neutrophil % 51.3 % (47-70); Platelet Count 212 K/mm3 (150-450); RBC Distribution Width CV 13.3 % (11.6-14.6); RBC Distribution Width SD 44.6 fl (35.1-43.9); Red Blood Count 5.06 M/mm3 (4.2-5.4)
[2024-01-17 10:40] LABS: ALB/GLOB Ratio 0.9 RATIO (0.9-2.4); AST(SGOT) 25 U/L (15-37); Alanine Aminotransfer ALT/SGPT 24 U/L (13-56); Albumin, Serum 3.3 g/dL (3.2-5.0); Alkaline Phosphatase 77 U/L (45-117); Anion Gap 2 (5-15); BUN 22 mg/dL (7-18); BUN/Creat Ratio 20.6 RATIO (10-20); Chloride 109 mmol/L (98-107); Creatinine, Serum 1.07 mg/dL (0.55-1.02); EST Glomerular Filtration Rate 52 mL/min (>60); Est Glom Filt Rate - Afr Amer 63 mL/min (>60); Globulin 3.6 g/dL (2.2-4.2); Glucose 100 mg/dL (74-106); Potassium 4.1 mmol/L (3.5-5.1); Protein, Total 6.9 g/dL (6.4-8.2); Sodium Level 140 mmol/L (136-145)
[2024-01-17 18:05] LABS: Vitamin D,25 Hydroxy 55.8 ng/mL
[2024-01-17 18:26] LABS: PTHIN 42.7 pg/mL (18.4-80.1)
== END | disposition home or self-care (01) ==
LOC: MFPLAB 08:19
PROVIDERS: PCP Family Medicine; Visit Provider Family Medicine
DX: M81.0 Age-related osteoporosis without current pathological fracture (principal)
CPT/HCPCS: 36415; 80053; 82306; 83970; 85025

== ENCOUNTER 2024-02-20 10:50 | Outpatient (CLI) | payer MEDICARE, SELFPAY ==
[2024-02-20 10:57] VITALS: BP 162/63; PULSE 77; RESP 14; TEMP 36.8; O2SAT 97; BMI 25.4
[2024-02-20] MEDS: DENOSUMAB 60 MG/ML SC (11:00)
== END 2024-02-20 23:59 | disposition home or self-care (01) ==
LOC: MEDOUTP 10:50
PROVIDERS: PCP Family Medicine; Referring Provider Family Medicine; Visit Provider Family Medicine
DX: M81.0 Age-related osteoporosis without current pathological fracture (principal)
CPT/HCPCS: 96372; J0897

== ENCOUNTER → 2024-07-10 | Outpatient (CLI) | payer MEDICARE, SELFPAY ==
[2024-07-10 18:23] LABS: Vitamin B12 423 pg/mL (211-911)
[2024-07-10 18:37] LABS: Erythrocyte Sedimentation Rate 2 mm/hr (0-30)
[2024-07-10 19:01] LABS: Rheumatoid Factor < 10.0 IU/mL (<15)
[2024-07-12 14:09] LABS: ANTINUCLEAR ANTIBODIES DIRECT Negative (Negative)
[2024-07-14 15:07] LABS: Lyme Scn Total Ab w/Rflx Negative (Negative); PROEL- A/G Ratio 1.2 (0.7-1.7); PROEL- Albumin 3.4 g/dL (2.9-4.4); PROEL- Alpha-1 Globulin 0.2 g/dL (0.0-0.4); PROEL- Alpha-2 Globulin 0.6 g/dL (0.4-1.0); PROEL- Globulin, Total 2.8 g/dL (2.2-3.9); PROEL- TOTAL PROTEIN 6.2 g/dL (6.0-8.5); PROEL-M-Spike 0.4 g/dL (Not Observed)
[2024-07-14 15:48] LABS: T4 Free Direct 0.83 ng/dL (0.76-1.46)
== END | disposition home or self-care (01) ==
LOC: MFPLAB 14:34
PROVIDERS: PCP Family Medicine; Visit Provider Family Medicine
DX: R53.83 Other fatigue (principal)
CPT/HCPCS: 36415; 82607; 82746; 84165; 84439; 84443; 85652; 86038; 86431; 86618

== ENCOUNTER 2024-08-22 10:41 | Outpatient (CLI) | payer MEDICARE, SELFPAY ==
[2024-08-22 11:01] VITALS: BP 141/80; PULSE 73; RESP 18; TEMP 36.7; O2SAT 94; BMI 25.4
[2024-08-22] MEDS: DENOSUMAB 60 MG/ML SC (11:12)
== END 2024-08-22 23:59 | disposition home or self-care (01) ==
LOC: MEDOUTP 10:41
PROVIDERS: PCP Family Medicine; Referring Provider Family Medicine; Visit Provider Family Medicine
DX: M81.0 Age-related osteoporosis without current pathological fracture (principal)
CPT/HCPCS: 96372; J0897

== ENCOUNTER → 2024-09-26 | Outpatient (CLI) | payer MEDICARE, SELFPAY ==
[2024-09-26 10:43] LABS: Erythrocyte Sedimentation Rate 4 mm/hr (0-30)
[2024-09-26 11:26] LABS: ALB/GLOB Ratio 0.9 RATIO (0.9-2.4); AST(SGOT) 22 U/L (15-37); Alanine Aminotransfer ALT/SGPT 26 U/L (13-56); Albumin, Serum 3.4 g/dL (3.2-5.0); Alkaline Phosphatase 63 U/L (45-117); Anion Gap 6 (5-15); BUN 17 mg/dL (7-18); BUN/Creat Ratio 15.7 RATIO (10-20); CRP < 2.90 mg/L (0.0-3.0); Calcium,Total 9.1 mg/dL (8.5-10.1); Chloride 110 mmol/L (98-107); Creatinine, Serum 1.08 mg/dL (0.55-1.02); EST Glomerular Filtration Rate 51 mL/min (>60); Est Glom Filt Rate - Afr Amer 62 mL/min (>60); Globulin 3.9 g/dL (2.2-4.2); Glucose 94 mg/dL (74-106); Lipase 34 U/L (13-75); Potassium 3.9 mmol/L (3.5-5.1); Protein, Total 7.3 g/dL (6.4-8.2); Sodium Level 141 mmol/L (136-145)
[2024-09-29 12:07] LABS: Deamidated Gliadin IgA 4 units (0-19); Deamidated Gliadin IgG 2 units (0-19); Endomysial Antibody IgA Negative (Negative); Immunoglobulin A 162 mg/dL (64-422); t-Transglutaminase IgA <2 U/mL (0-3)
[2024-09-30 06:08] LABS: ANTINUCLEAR ANTIBODIES DIRECT Negative (Negative); Beef <0.10 kU/L (Class 0); Chocolate <0.10 kU/L (Class 0); Codfish <0.10 kU/L (Class 0); Corn <0.10 kU/L (Class 0); Egg, Whole <0.10 kU/L (Class 0); Milk (Cow) <0.10 kU/L (Class 0); Mussels <0.10 kU/L (Class 0); Peanut <0.10 kU/L (Class 0); Pork <0.10 kU/L (Class 0); Salmon <0.10 kU/L (Class 0); Shrimp <0.10 kU/L (Class 0); Soybean <0.10 kU/L (Class 0); Tuna <0.10 kU/L (Class 0); Wheat <0.10 kU/L (Class 0)
== END | disposition home or self-care (01) ==
LOC: MFPLAB 08:28
PROVIDERS: PCP Family Medicine; Referring Provider Family Medicine; Visit Provider Family Medicine
DX: R19.7 Diarrhea, unspecified (principal)
CPT/HCPCS: 36415; 80053; 82784; 83516; 83690; 85652; 86003; 86005; 86038; 86140; 86255

== ENCOUNTER → 2024-09-29 | Outpatient (CLI) | payer MEDICARE, SELFPAY ==
[2024-09-30 15:08] LABS: pH, Stool 7.5 (7.0-7.5)
== END | disposition home or self-care (01) ==
LOC: LABSPEC 09:04
PROVIDERS: PCP Family Medicine; Referring Provider Family Medicine; Visit Provider Family Medicine
DX: R19.7 Diarrhea, unspecified (principal)
CPT/HCPCS: 83986

== ENCOUNTER → 2024-11-18 | Outpatient (CLI) | payer MEDICARE, SELFPAY ==
--- NOTE | 2024-11-18 12:22 | BI_ITS ---
PROCEDURE: SCRN MAMM (CAD)W/JIM BILAT REASON FOR EXAM: F, Age 84 y/o , SCREENING. No family history of breast cancer. TECHNIQUE: Bilateral screening digital breast tomosynthesis with 2D and 3D images. Computer aided detection. COMPARISON: 08/03/2023 FINDINGS: There are scattered areas of fibroglandular density. No suspicious masses, areas of developing architectural distortion, or suspicious calcifications. BI/SCRN MAMM (CAD)W/JIM BILAT IMPRESSION: There is no mammographic evidence of malignancy. BI-RADS 1: NEGATIVE. RECOMMEND ANNUAL MAMMOGRAPHIC SCREENING. Follow-up code: Routine Follow-up The patient will be notified of the results by letter. Reading Location: [id number]
--- NOTE | 2024-11-18 12:25 | BD_ITS ---
PROCEDURE: DEXA BONE DENSITY STUDY 11/18/2024 REASON FOR EXAM: F, age 84 y/o . Postmenopausal. TECHNIQUE: DEXA scan of the lumbar spine and both hips. COMPARISON: Comparison is made with prior study dated September 15, 2020. FINDINGS: Lumbar Spine (L1-L4): g/cm2 (0.800)/T-score (-2.0)/Z-score (0.7) findings are suggestive of osteopenia with a moderate fracture risk. Left Femur Total: g/cm2 (0.676)/T-score (-2.2)/Z-score (0.0) Left Femoral Neck: g/cm2 (0.620)/T-score (-2.1)/Z-score (0.3) Right Femur Total: g/cm2 (0.684)/T-score (-2.1)/Z-score (0.1) Right Femoral Neck: g/cm2 (0.592)/T-score (-2.3)/Z-score (0.1) The T-Scores on the most recent prior examination were: Lumbar Spine (L1-L4): There has been worsening of bone density since the previous examination. Left Femur Total: Improvement of 5.3%. Right Femur Total: Improvement of 5.8%. BD/Dexa Bone Density Study IMPRESSION: The patient is considered osteopenia as outlined below according to World Sl[employer] Organization (WHO) criteria with a high fracture risk. There has been improvement of bone density since the previous examascencion hawkins Reading Location: [place] [id number]
== END | disposition home or self-care (01) ==
LOC: OPBD 12:20
PROVIDERS: PCP Family Medicine; Referring Provider Family Medicine; Visit Provider Family Medicine
DX: Z12.31 Encounter for screening mammogram for malignant neoplasm of breast (principal); M81.0 Age-related osteoporosis without current pathological fracture
CPT/HCPCS: 77063; 77067; 77080

== ENCOUNTER 2025-02-13 10:48 | Outpatient (CLI) | payer MEDICARE, SELFPAY ==
[2025-02-13 11:00] VITALS: BP 143/55; PULSE 76; RESP 16; TEMP 36.2; O2SAT 96
[2025-02-13] MEDS: DENOSUMAB 60 MG/ML SC (11:08)
== END 2025-02-13 23:59 | disposition home or self-care (01) ==
LOC: MEDOUTP 10:49
PROVIDERS: PCP Family Medicine; Referring Provider Family Medicine; Visit Provider Family Medicine
DX: M81.0 Age-related osteoporosis without current pathological fracture (principal)
CPT/HCPCS: 96372; J0897

== ENCOUNTER 2025-04-01 08:46 | Day surgery (SDC) | payer MEDICARE, SELFPAY ==
[2025-04-01] VITALS (9 sets, daily range): BP systolic 86–116; BP diastolic 50–89; PULSE 63–84; RESP 16–17; TEMP 36.5–36.9; O2SAT 95–100; BMI 25.0
--- NOTE | 2025-04-01 09:01 | PCM.HP.STD ---
[facility] - General General Date of Admission: 04/01/25 Date of Service: 04/01/25 Chief Complaint: Screening colonoscopy HPI Narrative KAT WICK, is a 84 F who presents for screening colonoscopy. 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 She tolerated prep without any problems. She denies any abdominal pain. She does admit to occasional constipation. [facility] Medical History Wears hearing aid Loss of hearing Wears partial dentures Wears glasses History of steroid therapy Osteoporosis Non-smoker History of echocardiogram Colonoscopy planned Hyperlipidemia bunion surgery Home Medications ?Medication ?Instructions ?Recorded ?Last Taken ?Type multivitamin (Multiple Vitamins 1 tab PO DAILY 06/10/20 Unknown History tablet) meclizine 25 mg tablet 25 mg PO TID PRN dizziness 02/20/24 Unknown History cholecalciferol (vitamin D3) 50 50 mcg PO DAILY 03/27/25 Unknown History mcg (2,000 unit) capsule (D3-2000) lysine 500 mg tablet (L-Lysine) 500 mg PO DAILY 03/27/25 Unknown History Allergy/AdvReac Type Severity Reaction Status Date / Time Iodine and Iodide Containing Allergy Rash Verified 03/27/25 10:18 Produc latex Allergy Rash Verified 03/27/25 10:18 adhesive AdvReac Rash Verified 03/27/25 10:18 amoxicillin (From Augmentin) AdvReac Diarrhea Verified 03/27/25 10:18 clavulanic acid (From AdvReac Diarrhea Verified 03/27/25 10:18 Augmentin) Family History Mother Hypertension Surgical History H/O colectomy History of surgical removal of intestinal structure H/O removal of cyst Hx of removal of ovary Social History household members: spouse housing: house Smoking Status: Never smoker alcohol intake: never substance use type: does not use what type of physical activity do you participate in: swimming and aerobics frequency: 3-4 times per week seatbelt use: always do you feel safe at home: Yes ROS Constitutional Constitutional: Denies fatigue, fever(s), poor appetite, weight gain or weight loss Gastrointestinal Gastrointestinal: Denies belching, bloating, change in bowel habits, change in stool character, chewing difficulty, coffee ground emesis, constipation, cramping, diarrhea, dyspepsia, dysphagia, early satiety, excessive flatus, fecal incontinence, heartburn, hematemesis, hematochezia, hemorrhoids, loose stools, melena, nausea, odynophagia, rectal bleeding, tenesmus, vomiting or weight changes Physical Exam Const alert, oriented x3, no apparent distress and healthy appearing General Appearance: cooperative GI normal to inspection, nondistended, normoactive bowel sounds, soft to palpation, non-tender and non-distended Percussion: normal to percussion Rectal Exam: deferred Assessment & Plan Assessment/Plan (1) Encounter for screening colonoscopy: PLAN: She was explained alternatives, benefits, risk include not withstanding bleeding, infection, sepsis, perforation, need for brain surgery . She will have an ASA of 3.
[2025-04-01] MEDS: Lactated Ringers 1,000 ML 15 ML IV (09:13)
--- NOTE | 2025-04-01 09:17 | PCM.PRE.AN2 ---
ASA Classification* ASA Classification ASA Classification: 2 Assessment & Plan Anesthesia* Anesthesia Assessment Anesthesia Assessment: Discussed sedation and/or anesthesia options, risks, benefits, and alternatives with patient/parents/legal guardian/POA. Questions invited. The patient/parents/legal guardian/POA seems to understand and agrees to proceed with anesthesia plan. Reviewed the physical assessment, medical history, allergy history and patient home medications list prior to surgery/procedure/anesthetic and documented any changes. Performed airway and anesthesia risk assessments. Anesthesia Type Anesthesia Type: MAC History Source History Obtained from:: Patient Anesthesia Focused Assessment* Temperature: 97.7 F Pulse Rate: 84 Blood Pressure: 116/66 Respiratory Rate: 17 Pulse Ox: 100 Oxygen Delivery Method: Room Air Airway Assessment Mouth opens: >3 cm Mallampati Score: II Teeth Condition: Lower and Partial Neck Range of motion (ROM): Limited ROM Labs Anesthesia Preop lab: CBC WBC 6.0 K/mm3 (4.4-11.0) 01/17/24 08:01/17/24 RBC 5.06 M/mm3 (4.2-5.4) 01/17/24 08:19 01/17/24 Hgb 14.8 g/dL (12.0-15.0) 01/17/24 08:01/17/24 Hct 45.9 % (37-47) 01/17/24 08:19 01/17/24 Plt Count 212 K/mm3 (150-450) 01/17/24 08:19 01/17/24 CHEMISTRY Potassium 3.9 mmol/L (3.5-5.1) 09/26/24 08:09/26/24 Sodium 141 mmol/L (136-145) 09/26/24 08:09/26/24 Magnesium 1.5 mg/dL (1.8-2.4) L 11/27/14 08:34 11/27/14 BUN 17 mg/dL (7-18) 09/26/24 08:09/26/24 Creatinine 1.08 mg/dL (0.55-1.02) H 09/26/24 08:29 09/26/24 Glucose 94 mg/dL (74-106) 09/26/24 08:09/26/24 POC Glucose 97 mg/dL (70-110) 10/23/18 06:16 10/23/18 TSH 4.190 uIU/mL (0.358-3.740) H 07/10/24 14:36 07/10/24 COAG PT 15.9 SECONDS (11.7-14.9) H 11/27/14 08:34 11/27/14 Pre-Assessment Diagnosis/Proposed Procedure Planned Operative Procedure(s): COLONOSCOPY Anesthesia History Anesthesia History - contracts administrator: Anesthesia History - contracts administrator Hx Hospitalization No 03/27/25 10:21 Any Problems With Anesthesia No 03/27/25 10:21 Cholinesterase deficiency No 03/27/25 10:21 You/Your Family Experience No 03/27/25 10:21 fever (hyperthermia) with Relationship Recent Exposure to Contagious No 04/01/25 09:13 Disease Does patient have nerve No 03/27/25 10:21 stimulator Patient instructed to have device shut off --Does patient have Pacemaker No 04/01/25 09:13 or ICD? When Was Last Pacemaker Check QUESTION #4 FULL TEXT: You/Your Family Experience fever (hyperthermia) with Anesthesia Last Oral Intake Last Oral intake: Last Oral Intake NPO since 05:30 04/01/25 09:13 Meds taken in AM with sips of Yes 04/01/25 09:13 water? Meds patient instructed to prep 04/01/25 09:13 take am of surgery PONV PONV - contracts administrator: PONV - contracts administrator Female Yes 03/27/25 10:21 HX of Motion Sickness No 03/27/25 10:21 HX of N/V After Surgery No 03/27/25 10:21 Non-Smoker Yes 03/27/25 10:21 Duration of Surgery greater No 03/27/25 10:21 than 60 minutes Number of Risk Factors 2 03/27/25 10:21 PONV Score Moderate Risk 03/27/25 10:21 Height & Weight Height & Weight: Anesthesia: Height & Weight Height 5 ft 04/01/25 09:13 Weight: 58 kg 04/01/25 09:13 Body Mass Index (BMI) 25.0 04/01/25 09:13 Respiratory Assessment Respiratory Assessment - contracts administrator: Respiratory Tract Infection Hx - contracts administrator Hx Respiratory Tract Infection No 03/27/25 10:21 STOP Sleep Apnea STOP Sleep Apnea - contracts administrator: STOP Sleep Apnea - contracts administrator Hx Hypertension No 03/27/25 10:21 Hx Sleep Apnea No 03/27/25 10:21 CPAP No 10/23/18 11:52 BIPAP No 08/23/18 02:19 Do you snore loudly (louder No 03/27/25 10:21 than talking or can be heard Do you often feel tired/ No 03/27/25 10:21 fatigued/ sleepy during daytime? Has anyone observed you stop No 03/27/25 10:21 breathing during sleep? STOP Results Negative 03/27/25 10:21 QUESTION #5 FULL TEXT : Do you snore loudly (louder than talking or can be heard through closed doors)? 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 Specify any problems Hx of Preganancy in last 3 No 03/27/25 10:21 Months Nurse Filling Out Transfusion [email or web address] 03/27/25 10:21 & Questions: Date: 03/27/25 03/27/25 10:21 Time: 10:23 03/27/25 10:21 Patient unable to answer at this time (ie. confused, unrespo /Reproduction History /Reproductive History - contracts administrator: /Reproductive Hx- contracts administrator Hx Now Gestational Age (in weeks): EDC: Hx Hx Para Hx Section SAB Active Medications Active Medications: Current Medications Generic Name Dose Route Start Last Admin Trade Name Freq PRN Reason Stop Dose Admin Lactated Ringer's 1,000 mls @ 15 mls/hr 04/01/25 09:00 04/01/25 09:13 IV 15 mls/hr .Q48H MORAIMA Administration PFSH Medical History Wears hearing aid Loss of hearing Wears partial dentures Wears glasses History of steroid therapy Osteoporosis Non-smoker History of echocardiogram Colonoscopy planned Hyperlipidemia bunion surgery Home Medications ?Medication ?Instructions ?Recorded ?Last Taken ?Type multivitamin (Multiple Vitamins 1 tab PO DAILY 06/10/20 03/31/25 History tablet) meclizine 25 mg tablet 25 mg PO TID PRN dizziness 02/20/24 Unknown History cholecalciferol (vitamin D3) 50 50 mcg PO DAILY 03/27/25 03/31/25 History mcg (2,000 unit) capsule (D3-2000) lysine 500 mg tablet (L-Lysine) 500 mg PO DAILY 03/27/25 03/31/25 History Allergy/AdvReac Type Severity Reaction Status Date / Time Iodine and Iodide Containing Allergy Rash Verified 04/01/25 09:12 Produc latex Allergy Rash Verified 04/01/25 09:12 adhesive AdvReac Rash Verified 04/01/25 09:12 amoxicillin (From Augmentin) AdvReac Diarrhea Verified 04/01/25 09:12 clavulanic acid (From AdvReac Diarrhea Verified 04/01/25 09:12 Augmentin) Family History Mother Hypertension Surgical History H/O colectomy History of surgical removal of intestinal structure H/O removal of cyst Hx of removal of ovary Social History household members: spouse housing: house Smoking Status: Never smoker alcohol intake: never substance use type: does not use what type of physical activity do you participate in: swimming and aerobics frequency: 3-4 times per week seatbelt use: always do you feel safe at home: Yes Review of Systems (Anesthesia) ROS Narrative System reviewed and no additional complaints, except as documented.
--- NOTE | 2025-04-01 10:00 | COLBX_PTH ---
PATIENT: KAT WICK LOC: EN U#:[id number] AGE/SX: 84/F ROOM: RE04/01/[address]: Dr. James Hwang DO : 1940 BED: DIS: 04/01/2025 SPEC #: [id number] RECD: 04/01/25 11:53 STATUS: PHYLLIS REQ #: [id number] JAG: 04/01/25 10:[address]: James Hwang DEPT: SURGICAL PATHOLOGY RECD BY: Myles Winslow ENTERED: 04/01/25 13:34 SP TYPE: COLON BX OTHR DR: Dr. Doroteo Dominguez MD Tissues: A - Ascending colon Procedures: Surgery Specimen Level IV HEADER OPERATION: Colonoscopy with biopsy PRE-OP DIAGNOSIS: Encounter for screening colonoscopy TISSUE SUBMITTED: A- Ascending colon polyp MICROSCOPIC DIAGNOSIS A. Ascending colon, polyp, biopsy: - Tubular adenoma. MICROSCOPIC DESCRIPTION Slides are reviewed. GROSS DESCRIPTION A. Received in fixative is one container labeled with the patient's name and designated Ascending colon polyp. The specimen consists of one irregular fragment of light sam soft tissue that measures 0.4 cm. The specimen is totally submitted in one cassette. VT 04/01/2025 CPT:96006
--- NOTE | 2025-04-01 10:56 | OP.PROVAT_ITS ---
04/01/2025 Doroteo Dominguez [address] [facility] [address] [place] [address] Re : Colonoscopy procedure for Shadia Alfordener Dear Dr. Dominguez This procedure was performed on Tuesday, April 01, 2025. My impressions and recommendations are as follows: Impressions : - Diverticulosis in the recto-sigmoid colon and in the sigmoid colon. - One 5 mm polyp in the ascending colon, removed with a cold snare. Resected and retrieved. Recommendations : - Discharge patient to home. - Resume previous diet. - Continue present medications. - Await pathology results. - No repeat colonoscopy due to age. My findings are described in the full procedure note, which is enclosed. If I can be of further assistance, please feel free to contact me at . Sincerely, James Hwang, 04/01/2025 10:56:10 AM This report has been signed electronically.
--- NOTE | 2025-04-01 10:56 | OP.COLON_ITS ---
Patient Name: Shadia Turner Procedure Date: 04/01/2025 10:19 AM Date of : 1940 Age: 84 Procedure: Colonoscopy Indications: Screening for colorectal malignant neoplasm Providers: James Hwang DO Referring MD: Doroteo Dominguez Medicines: Monitored Anesthesia Care Patient Profile: This is an 84 year old female. Refer to note in patient chart for documentation of history and physical. Last Colonoscopy: several years ago. Complications: No immediate complications. Procedure: Pre-Anesthesia Assessment: - Prior to the procedure, a History and Physical was performed, and patient medications and allergies were reviewed. The patient is competent. The risks and benefits of the procedure and the sedation options and risks were discussed with the patient. All questions were answered and informed consent was obtained. Patient identification and proposed procedure were verified by the physician in the pre-procedure area. Mental Status Examination: alert and oriented. Airway Examination: normal oropharyngeal airway and neck mobility. Respiratory Examination: clear to auscultation. CV Examination: normal. Prophylactic Antibiotics: The patient does not require prophylactic antibiotics. Prior Anticoagulants: The patient has taken no anticoagulant or antiplatelet agents except for NSAID medication. ASA Grade Assessment: II - A patient with mild systemic disease. After reviewing the risks and benefits, the patient was deemed in satisfactory condition to undergo the procedure. The anesthesia plan was to use monitored anesthesia care (MAC). Immediately prior to administration of medications, the patient was re-assessed for adequacy to receive sedatives. The heart rate, respiratory rate, oxygen saturations, blood pressure, adequacy of pulmonary ventilation, and response to care were monitored throughout the procedure. The physical status of the patient was re-assessed after the procedure. After I obtained informed consent, the scope was passed under direct vision. Throughout the procedure, the patient's blood pressure, pulse, and oxygen saturations were monitored continuously. The Colonoscope was introduced through the anus and advanced to the cecum, identified by appendiceal orifice and ileocecal valve. The colonoscopy was performed without difficulty. The patient tolerated the procedure well. The quality of the bowel preparation was adequate. The ileocecal valve, appendiceal orifice, and rectum were photographed. Scope In: 10:32:51 AM Scope Withdrawal Time 0 hours 8 minutes 11 seconds Scope Out: 10:45:35 AM Total Procedure Duration Time 0 hours 12 minutes 44 seconds Findings: The perianal and digital rectal examinations were normal. Multiple small and large-mouthed diverticula were found in the recto-sigmoid colon and sigmoid colon. A 5 mm polyp was found in the ascending colon. The polyp was sessile. The polyp was removed with a cold biopsy forceps. Resection and retrieval were complete. Verification of patient identification for the specimen was done. Estimated blood loss was minimal. Impression: - Diverticulosis in the recto-sigmoid colon and in the sigmoid colon. - One 5 mm polyp in the ascending colon, removed with a cold snare. Resected and retrieved. Recommendation: - Discharge patient to home. - Resume previous diet. - Continue present medications. - Await pathology results. - No repeat colonoscopy due to age. Procedure Code(s): --- Professional --- 12191, Colonoscopy, flexible; with biopsy, single or multiple CPT copyright 2021 [employer]. All rights reserved. The codes documented in this report are preliminary and upon wrapper leaf inspector review may be revised to meet current compliance requirements. James Hwang DO 04/01/2025 10:56:10 AM This report has been signed electronically. Number of Addenda: 0 Note Initiated On: 04/01/2025 10:19 AM
--- NOTE | 2025-04-01 11:00 | PCM.POST.ANE ---
Anesthesia: Postop Eval I Current Vital Signs Temperature: 97.9 F Pulse Rate: 71 Blood Pressure: 86/50 Respiratory Rate: 16 Pulse Ox: 96 Oxygen Delivery Method: Room Air Assessment Airway patent: Yes Spontaneous unlabored respirations: Yes Mental status: Asleep nausea: No Vomiting: No Anesthesia Complication: No Fluid Hydration Crystalloid volume administer (ml): 400 Total IV fluid infused: 400 Progress Note Anesthesia document: Postop Eval 1 completed: Yes
--- NOTE | 2025-04-01 11:14 | PCM.POSTANE2 ---
Anesthesia Postop Eval I Sum Postop Eval Completion status Anesthesia document: Postop Eval 1 completed: Yes Anesthesia Postop Eval I Summary Anesthesia Postop Eval I Summary: Anesthesia Postop Eval I: Assessment Summary Airway patent Yes 04/01/25 11:01 [email or web address] Spontaneous unlabored Yes 04/01/25 11:01 [email or web address] respirations Mental status Asleep 04/01/25 11:01 [email or web address] nausea No 04/01/25 11:01 [email or web address] Vomiting No 04/01/25 11:01 [email or web address] Anesthesia Postop Eval I: Fluid Summary Crystalloid volume administer 400 04/01/25 11:01 [email or web address] (ml) Colloids volume administered ( ml) Blood Product volume administered (ml) Total IV fluid infused 400 04/01/25 11:01 [email or web address] Anesthesia Postop Eval I: Summary Notes Anesthesia Complication No 04/01/25 11:01 [email or web address] Anesthesia Complication Comment: Post-operative progress note Anesthesia: Postop Eval II Evaluation Mental status: Awake and Calm Pain Level: 0 nausea: No Vomiting: No Progress Note Post-operative progress note: Tolerated well Complications Anesthesia Complication: No
== END 2025-04-01 11:34 | disposition home or self-care (01) ==
LOC: EN 08:47 → AC 08:49
PROVIDERS: PCP Family Medicine; Referring Provider Family Medicine; Visit Provider Internal Medicine Gastroenterology
PROC: 0DJD8ZZ Inspection of Lower Intestinal Tract, Via Natural or Artificial Opening Endoscopic (ICD-10-PCS; CPT 45378; principal; 2025-04-01 09:55)
DX: Z12.11 Encounter for screening for malignant neoplasm of colon (principal); D12.2 Benign neoplasm of ascending colon; K57.30 Diverticulosis of large intestine without perforation or abscess without bleeding; Z90.49 Acquired absence of other specified parts of digestive tract
CPT/HCPCS: 45380; 88305; J2405

== ENCOUNTER 2025-04-05 15:15 | Emergency (ER) | payer MEDICARE, SELFPAY ==
[2025-04-05 15:16] VITALS: PULSE 77; RESP 16; TEMP 36.6; O2SAT 96; BMI 26.4
[2025-04-05 15:19] VITALS: BP 120/64
--- NOTE | 2025-04-05 15:50 | CT_ITS ---
PROCEDURE: ABDOMEN/PELVIS W IV CONT ONLY 04/05/2025 REASON FOR EXAM: ABD PAIN LOWER TECHNIQUE: ABDOMEN/PELVIS W IV CONT ONLY Coronal and Sagittal reconstruction series were provided. Intravenous contrast administered. One or more dose reduction techniques were used (e.g., Automated exposure control, adjustment of the mA and/or kV according to patient size, use of iterative reconstruction technique. RADIATION DOSE SUMMARY: Dose reduction strategies employed. COMPARISON: None FINDINGS: Liver, spleen, pancreas, adrenals are unremarkable. Lung bases are clear. Small hiatal hernia. Parapelvic simple cysts of the kidneys. Aorta is nonaneurysmal but demonstrates significant atheromatous vascular calcifications. Normal gallbladder. No adenopathy. No free fluid. No inguinal adenopathy. Diverticulosis without diverticulitis no dilated loops of bowel. Nonvisualization of the appendix. CT/Abdomen/Pelvis W IV Cont ONLY IMPRESSION: No gross CT abnormalities. Nonvisualization of the appendix. Chronic findings as above. [facility]
--- NOTE | 2025-04-05 15:50 | CT_ITS ---
PROCEDURE: ABDOMEN/PELVIS W IV CONT ONLY 04/05/2025 REASON FOR EXAM: ABD PAIN LOWER TECHNIQUE: ABDOMEN/PELVIS W IV CONT ONLY Coronal and Sagittal reconstruction series were provided. Intravenous contrast administered. One or more dose reduction techniques were used (e.g., Automated exposure control, adjustment of the mA and/or kV according to patient size, use of iterative reconstruction technique. RADIATION DOSE SUMMARY: Dose reduction strategies employed. COMPARISON: None FINDINGS: Liver, spleen, pancreas, adrenals are unremarkable. Lung bases are clear. Small hiatal hernia. Parapelvic simple cysts of the kidneys. Aorta is nonaneurysmal but demonstrates significant atheromatous vascular calcifications. Normal gallbladder. No adenopathy. No free fluid. No inguinal adenopathy. Diverticulosis without diverticulitis no dilated loops of bowel. Nonvisualization of the appendix. CT/Abdomen/Pelvis W IV Cont ONLY IMPRESSION: No gross CT abnormalities. Nonvisualization of the appendix. Chronic findings as above. Reading [facility]
--- NOTE | 2025-04-05 15:52 | EX.ED.DYSGE1 ---
HPI History of Present Illness Chief Complaint: Abd Pain Narrative Narrative: Patient is 84-year-old female with a past medical history of colectomy after perforation who presented to the emergency department the chief complaint of abdominal pain. Patient states that she had a colonoscopy on Sunday by Dr. Hwang and notes that she took a nap earlier today woke up with lower abdominal pain. Patient states that her pain was in her lower abdomen wrapping to her back prompting her to come here for further evaluation management. Patient did note that she has not been around anybody ill recently and felt well before going to take a nap today. [facility] Medical History Wears hearing aid Loss of hearing Wears partial dentures Wears glasses History of steroid therapy Osteoporosis Non-smoker History of echocardiogram Colonoscopy planned Hyperlipidemia bunion surgery Home Medications ?Medication ?Instructions ?Recorded ?Last Taken ?Type multivitamin (Multiple Vitamins 1 tab PO DAILY 06/10/20 03/31/25 History tablet) meclizine 25 mg tablet 25 mg PO TID PRN dizziness 02/20/24 Unknown History cholecalciferol (vitamin D3) 50 50 mcg PO DAILY 03/27/25 03/31/25 History mcg (2,000 unit) capsule (D3-2000) lysine 500 mg tablet (L-Lysine) 500 mg PO DAILY 03/27/25 03/31/25 History dicyclomine 20 mg tablet 20 mg PO TID #20 tabs 04/05/25 Unknown Rx ondansetron 4 mg disintegrating 4 mg PO Q6H PRN nausea and 04/05/25 Unknown Rx tablet vomiting #20 tabs Allergy/AdvReac Type Severity Reaction Status Date / Time Iodine and Iodide Containing Allergy Rash Verified 04/05/25 15:19 Produc latex Allergy Rash Verified 04/05/25 15:19 adhesive AdvReac Rash Verified 04/05/25 15:19 amoxicillin (From Augmentin) AdvReac Diarrhea Verified 04/05/25 15:19 clavulanic acid (From AdvReac Diarrhea Verified 04/05/25 15:19 Augmentin) Family History Mother Hypertension Surgical History H/O colectomy History of surgical removal of intestinal structure H/O removal of cyst Hx of removal of ovary Social History household members: spouse housing: house Smoking Status: Never smoker alcohol intake: never substance use type: does not use what type of physical activity do you participate in: swimming and aerobics frequency: 3-4 times per week seatbelt use: always do you feel safe at home: Yes ROS ROS ED ROS Narrative Constitutional: Denies any fevers, chills, headaches Cardiovascular: Denies chest pain Respiratory: Denies coughing wheezing shortness of breath Abdomen: Complains of abdominal pain as noted above denies nausea vomiting : Denies any urinary symptoms Neurological: Denies any numbness, wheeze, tingling Musculoskeletal: Complains of abdominal pain rating to her back as noted above Skin: Denies any rashes or lesions EXAM Physical Exam Narrative Exam Narrative: General: Patient lying in bed resting comfortably did not appear to be in acute distress Head: Atraumatic, normocephalic Eyes: PERRL bilaterally, EOMI bilateral, no conjunctival injection noted Neck: Soft, supple, trachea midline Cardiovascular: Regular rate and rhythm Respiratory: Clear to auscultation bilaterally Abdomen: Soft, nondistended, nontender to palpation Extremities: +5/5 strength noted in the bilateral upper and lower extremities, radial pulses +2/4 in the bilateral extremities Neurological: Patient follow commands knew that she was at [facility] year is 2024 Skin: Warm, dry, tact no rashes or lesions noted Const Vital Signs: 04/05/25 15:16 04/05/25 15:19 04/05/25 16:04 Temperature 98 F Temperature Source Oral Pulse Rate 77 69 Respiratory Rate 16 16 Blood Pressure 120/64 144/55 H Blood Pressure Mean 82 84 Pulse Ox 96 96 Oxygen Delivery Method Room Air Room Air 04/05/25 16:45 04/05/25 17:30 Temperature Temperature Source Pulse Rate 86 80 Respiratory Rate 14 14 Blood Pressure 126/65 H 137/68 H Blood Pressure Mean 85 91 Pulse Ox 95 96 Oxygen Delivery Method Room Air Room Air MDM MDM MDM Narrative Medical decision making narrative: Patient is a 84-year-old female who presented to the emergency department the chief complaint of abdominal pain. On the differential diagnosis includes but not limited to bowel obstruction, appendicitis, pancreatitis, AAA. Once the workup is obtained reviewed she will be reevaluated. Patient CBC was reviewed showed no evidence leukocytosis white blood count normal at 8.7, he was 15.2, plate count was noted to be 208. Patient sodium normal 143, potassium normal 4.2, creatinine normal at 1.03. Patient AST and ALT of 75 and 43 respectively total bilirubin normal at 0.39. Patient's lipase normal at 60 urinalysis showed no evidence of infection. Patient CT abdomen pelvis with IV contrast was reviewed and showed no acute abnormalities chronic findings noted. Discussed results with the patient she feels much better would like to go home at this point time. Patient given prescriptions for dicyclomine and Zofran for as needed. She was vies follow-up with her doctor in outpatient setting return with worsening symptoms or other concerns. Significant other bedside is also agreeable to plan. All question concerns answered. Lab Data Labs: Laboratory Results - last 24 hr 04/05/25 15:58 WBC 8.7 RBC 4.99 Hgb 15.2 H Hct 44.4 MCV 89.0 MCH 30.5 MCHC 34.2 RDW Std Deviation 43.6 RDW Coeff of [place] 13.3 Plt Count 208 MPV 10.8 Immature Gran % (Auto) 0.900 Neut % (Auto) 67.1 Lymph % (Auto) 18.6 L [place] % (Auto) 9.4 Eos % (Auto) 3.2 Baso % (Auto) 0.8 Absolute Neuts (auto) 5.9 Absolute Lymphs (auto) 1.62 Nucleated RBC % 0 Sodium 143 Potassium 4.2 Chloride 105 Carbon Dioxide 27.1 Anion Gap 10 BUN 27 H Creatinine 1.03 Estim Creat Clear Calc 33.26 L Est GFR (MDRD) Non-Af 54 L BUN/Creatinine Ratio 26.2 H Glucose 133 H Calcium 9.5 Total Bilirubin 0.39 AST 75 H ALT 43 H Alkaline Phosphatase 86 Total Protein 6.5 Albumin 3.8 Globulin 2.7 Albumin/Globulin Ratio 1.4 Lipase 60 Urine Color Yellow Urine Clarity Cloudy Urine pH 7.0 Ur Specific [place] 1.010 Urine Protein 15 H Urine Glucose (UA) Normal Urine Ketones Negative Urine Occult Blood 25 H Urine Nitrite Negative Urine Bilirubin Negative Urine Urobilinogen Normal Ur Leukocyte Esterase 25 H Urine RBC 0-5 SEEN Urine WBC 0 SEEN Ur Squamous Epith Cells 0-5 SEEN Calcium Oxalate Crystal 1+ Amorphous Sediment 2+ Urine Bacteria RARE Urine Mucus 0 SEEN Radiography Diagnostic Testing: Clinical Impression(s) from Imaging Studies Abdomen/Pelvis CT 04/05/25 15:50 IMPRESSION: No gross CT abnormalities. Nonvisualization of the appendix. Chronic findings as above. Reading Location: [facility] Discharge Plan Triage Chief Complaint: Abd Pain ED Provider: Mehran Andujar Dx/Rx/DC Orders Clinical Impression: Abdominal pain, HLD (hyperlipidemia), History of colectomy Prescriptions: New dicyclomine 20 mg tablet 20 mg PO TID Qty: 20 0RF ondansetron 4 mg tablet,disintegrating 4 mg PO Q6H PRN (Reason: nausea and vomiting) Qty: 20 0RF No Action multivitamin [Multiple Vitamins] Tablet 1 tab PO DAILY meclizine 25 mg tablet 25 mg PO TID PRN (Reason: dizziness) cholecalciferol (vitamin D3) [D3-2000] 50 mcg (2,000 unit) capsule 50 mcg PO DAILY lysine [L-Lysine] 500 mg tablet 500 mg PO DAILY Primary Care Provider: Doroteo Dominguez Referrals: Doroteo Dominguez MD [Primary Care Provider] - Activity Restrictions/Additional Instructions: Follow-up your doctor in the outpatient setting. Return with worsening symptoms or other concerns. Your blood work did not show any acute findings and your CT was normal. Use prescriptions as prescribed that was sent to your pharmacy. Print Language: Serbian Disposition Disposition: Home, Self Care
[2025-04-05] MEDS: 0.9% Normal Saline (1000mL) 1,000 ML 999 ML IV (15:55)
[2025-04-05 16:02] LABS: Mucous, Urine 0 SEEN /hpf (<or=2+)
[2025-04-05] MEDS: DiphenhydrAMINE 50 MG/ML Syringe 25 MG IV (16:02)
[2025-04-05 16:04] VITALS: BP 144/55; PULSE 69; RESP 16; O2SAT 96
[2025-04-05 16:05] LABS: Hematocrit 44.4 % (37-47); Hemoglobin 15.2 g/dL (12.0-15.0); Immature Granulocytes Count 0.080 X10^3/uL (0.0-0.0); Mean Corp Hgb Conc 34.2 g/dL (32-36); Mean Corpuscular Volume 89.0 fL (81-99); Mean Platelet Vol. 10.8 fl (6.2-12.0); NRBC Flagged by Analyzer 0 % (0-5); Platelet Count 208 K/mm3 (150-450); RBC Distribution Width CV 13.3 % (11.6-14.6); RBC Distribution Width SD 43.6 fl (35.1-43.9); Red Blood Count 4.99 M/mm3 (4.2-5.4); White Blood Count 8.7 K/mm3 (4.4-11.0)
[2025-04-05 16:20] LABS: AST(SGOT) 75 U/L (<=31); Alanine Aminotransfer ALT/SGPT 43 U/L (<=34); Albumin, Serum 3.8 g/dL (3.4-4.8); Alkaline Phosphatase 86 U/L (35-104); Anion Gap 10 (5-15); BUN 27 mg/dL (4-19); BUN/Creat Ratio 26.2 RATIO (10-20); Calcium,Total 9.5 mg/dL (7.6-11.0); Carbon Dioxide 27.1 mmol/L (21.0-32.0); Chloride 105 mmol/L (98-108); Estimated Creatinine Clearance 33.26 ml/min (50-250); Globulin 2.7 g/dL (2.2-4.2); Glucose 133 mg/dL (70-99); Lipase 60 U/L (13-75); Potassium 4.2 mmol/L (3.3-5.1)
--- NOTE | 2025-04-05 16:24 | CM.ED ---
Social Work Date of referral: 04/05/25 Reason for referral: Advanced Care Directives (ACD's) not on file. Referred by: Social Work Identification Patient provided consent to social work visit. Customer Engineering Specialist requested patient bring in a copy of ACD's which patient agreed to do. Tara Nur, EXCELLENCE SPECIALIST, BLOCKER AND SEWER
--- NOTE | 2025-04-05 16:24 | CM.ED ---
Social Work Date of referral: 04/05/25 Reason for referral: Advanced Care Directives (ACD's) not on file. Referred by: Social Work Identification Patient provided consent to social work visit. Insulation Hoseman requested patient bring in a copy of ACD's which patient agreed to do. Tara Nur, SMALL CRAFT OPERATOR, BUTTON CLAMPER
--- OUTSIDE RECORDS SUMMARY | 2025-04-05 16:36 | XMS RPT_ITS | CCD ---
Author Organization [facility] CliniSy[facility] Care Team Providers Care Social Media Executive Name Role Phone Dr. Doroteo Dominguez Primary Care Provider [phone] Doroteo Dominguez Referring Provider [phone] Dr. Doroteo Hess Attending Provider Alberto GEORGE, Dr. Sadler Primary Care Provider Dr. Doroteo Dominguez MD Attending Provider [phone] Doroteo Dominguez MD Referring Provider 1([facility])[phone] Carly KIM-Krishna Coronado Attending Provider 1([facility])[phone] Dr. Doroteo Dominguez MD Primary Care Provider Dr. Doroteo Dominguez MD Referring Provider [phone] Alberto GEORGE, Dr. Sadler Attending Provider [phone] Alberto GEORGE, Dr. Sadler Primary Care Provider Alberto GEORGE, Dr. Sadler Attending Provider [phone] Alberto GEORGE, Dr. Sadler Referring Provider 1([facility])[phone] James Hwang DO Attending Provider Dr. James Hwang DO Other Provider Dominguez, Doroteo Referring Unavailable Dominguez, Doroteo Primary Care Unavailable Krishna Carroll NP Attending Unavailable Dominguez, Doroteo Referring Unavailable Dominguez, Doroteo Primary Care Unavailable James Hwang Consulting Unavailable James Hwang Attending Unavailable Dominguez, Doroteo Attending Unavailable Dominguez, Doroteo Referring Unavailable Dominguez, Doroteo Primary Care Unavailable Dominguez, Doroteo Attending Unavailable Dominguez, Doroteo Referring Unavailable Dominguez, Doroteo Primary Care Unavailable Dominguez, Doroteo Attending Unavailable Dominguez, Doroteo Referring Unavailable Dominguez, Doroteo Primary Care Unavailable Dominguez, Doroteo Referring Unavailable Dominguez, Doroteo Primary Care Unavailable Dominguez, Doroteo Attending Unavailable Dominguez, Doroteo Attending Unavailable Doroteo Dominguez Primary Care Unavailable Jaiden James Attending Unavailable Doroteo Dominguez Referring Unavailable Doroteo Dominguez Primary Care Unavailable Doroteo Dominguez Attending Unavailable Doroteo Dominguez Referring Unavailable Doroteo Dominguez Primary Care Unavailable Allergies Allergy Classification Reported Allergen(s) Allergy Type Date of Onset Reaction(s) Facility (9 sources) Adhesive agent; Translations: [adhesive] Propensity to adverse reactions 1 Rash [facility] (8 sources) Amoxicillin Drug Allergy 1 Diarrhea [facility] (8 sources) Clavulanate Drug Allergy 1 Diarrhea [facility] (8 sources) Iodine Compounds Allergy to substance 1 [facility] (8 sources) Latex Allergy to substance 1 [facility] (1 source) Amoxicillin Drug Allergy 5 [facility] (1 source) Clavulanate Drug Allergy 5 [facility] (1 source) Latex Drug allergy (disorder) 5 [facility] (1 source) Iodine and Iodide Containing Produc Drug allergy (disorder) 5 [facility] Medications Current Medications Medication Drug Class(es) Dates Sig (Normalized) Sig (Original) cholecalciferol 0.05 mg oral capsule (9 sources) Vitamin D Start: 03-27-2025 Cholecalciferol (Vitamin D3) (D3-2000) 50 mcg (2,000 unit) capsule Active 50 ug PO DAILY March 27, 2025 12:00am Start: 08-14-2018 End: 08-22-2024 take 1 tablet by mouth once daily Cholecalciferol (Vitamin D3) 1,000 UNIT tablet Discontinued 1000 U PO DAILY August 14, 2018 1:00am August 22, 2024 11:59am SUPPLEMENT lysine 500 mg oral tablet (1 source) Start: 03-27-2025 take 1 tablet by mouth once daily Lysine (L-Lysine) 500 mg tablet Active 500 mg PO DAILY March 27, 2025 12:00am meclizine hydrochloride 25 mg oral tablet (11 sources) Antiemetic Start: 03-19-2021 End: 02-20-2024 take 1 tablet by mouth three times daily as needed for dizziness Meclizine 25 mg tablet Active 25 mg PO THREE TIMES A DAY as needed for dizziness February 20, 2024 12:00am Multivitamin (Multiple Vitamins) tablet (8 sources) Start: 06-10-2020 Multivitamin (Multiple Vitamins) tablet Active 1 {tbl} PO DAILY June 10, 2020 12:00am Start: 06-10-2020 take 1 tablet by myron th once daily Multivitamin (Multiple Vitamins) tablet Active 1 TABLET PO DAILY June 10, 2020 12:00am Start: 06-10-2020 take 1 tablet by myron th once daily Multivitamin (Multiple Vitamins) tablet Active 1 TABLET PO DAILY June 09, 2020 11:00pm Completed/Discontinued Medications Medication Drug Class(es) Dates Sig (Normalized) Sig (Original) acetaminophen 500 mg oral tablet (8 sources) Start: 10-25-2018 End: 06-10-2020 take 2 tablets by mouth every six hours Acetaminophen 500 MG tablet Discontinued 1000 mg PO EVERY 6 HOURS 0 October 25, 2018 1:00am June 10, 2020 12:36pm Start: 10-25-2018 End: 06-10-2020 take 1000 mg by mouth every six hours Acetaminophen Discontinued 1000 MG PO EVERY 6 HOURS October 25, 2018 12:00am June 10, 2020 11:36am [id number] 200 actuat albuterol 0.09 mg/actuat metered dose inhaler (3 sources) beta2-Adrenergic Agonist Start: 11-02-2024 End: 03-27-2025 Albuterol Sulfate 90 mcg/actuation HFA aerosol inhaler Discontinued 2 NMA INHALATION EVERY 4-6 HOURS as needed for shortness of breath or wheezing 6.7 0 November 02, 2024 1:00am March 27, 2025 10:18am aspirin 81 mg chewable tablet (16 sources) Platelet Aggregation Inhibitor, Nonsteroidal Anti-inflammatory Drug Start: 11-28-2014 End: 06-10-2020 take 1 tablet by mouth once daily Aspirin 81 MG tablet,chewable Discontinued 81 mg PO DAILY@0800 August 14, 2018 4:27pm June 10, 2020 12:36pm [facility] atorvastatin 10 mg oral tablet (8 sources) HMG-CoA Reductase Inhibitor Start: 06-10-2020 End: 02-20-2024 take 1 tablet by mouth once daily Atorvastatin 10 mg tablet Discontinued 10 mg PO DAILY June 10, 2020 12:00am February 20, 2024 10:54am azithromycin 250 mg oral tablet (3 sources) Macrolide Antimicrobial Start: 11-02-2024 End: 03-27-2025 Azithromycin (Zithromax Z-Pino) 250 mg tablet Discontinued 0 PO .COMPLEX 6 0 November 02, 2024 1:00am March 27, 2025 10:19am For 250 mg dose pack: take 500 mg today (day 1), then 250 mg for 4 days (days 2-5) PO ciprofloxacin 500 mg oral tablet (8 sources) Quinolone Antimicrobial Start: 08-26-2018 End: 09-05-2018 take 1 tablet by mouth twice daily Ciprofloxacin Hcl 500 MG tablet Discontinued 500 mg PO TWICE A DAY 20 10 0 August 26, 2018 1:00am September 04, 2018 1:00am September 05, 2018 1:11am hydrOXYzine pamoate 50 mg oral capsule (8 sources) Antihistamine Start: 10-26-2018 End: 06-10-2020 take 1 capsule by mouth four times daily as needed Hydroxyzine Pamoate 50 MG capsule Discontinued 50 mg PO 4 TIMES DAILY NEEDED as needed for Itching 40 0 October 26, 2018 1:00am June 10, 2020 12:36pm Magnesium (8 sources) Start: 08-14-2018 End: 08-26-2018 take 1 tablet by mouth once daily Magnesium 250 MG tablet Discontinued 250 mg PO DAILY August 14, 2018 1:00am August 26, 2018 8:48am SUPPLEMENT Start: 08-14-2018 End: 08-26-2018 take 1 tablet by mouth once daily Magnesium 250 MG tablet Discontinued 250 mg PO DAILY August 14, 2018 1:00am August 26, 2018 8:48am Start: 08-14-2018 End: 08-26-2018 take 250 mg by mouth once daily Magnesium Discontinued 250 MG PO DAILY August 14, 2018 1:00am August 26, 2018 8:48am Start: 08-14-2018 End: 08-26-2018 take 250 mg by mouth once daily Magnesium Discontinued 250 MG PO DAILY August 14, 2018 12:00am August 26, 2018 7:48am magnesium amino acid chelate 100 mg oral tablet (8 sources) Start: 10-16-2018 End: 03-27-2025 take 1 tablet by mouth once daily Magnesium Amino Acid Chelate 100 MG tablet Discontinued 1 {tbl} PO DAILY October 16, 2018 1:00am Kyra 25th, 2025 10:19am SUPPLEMENT metroNIDAZOLE 500 mg oral tablet (8 sources) Nitroimidazole Antimicrobial Start: 10-23-2018 End: 10-25-2018 Metronidazole 500 MG tablet Discontinued 2 {tbl} PO DIRECTED October 23, 2018 1:00am October 25, 2018 7:11am antibiotic Start: 10-23-2018 End: 10-25-2018 Metronidazole Discontinued 2 TABLET PO DIRECTED October 23, 2018 12:00am October 25, 2018 6:11am Multivitamin With Folic Acid (Thera) 1 TABLET tablet (8 sources) Start: 02-16-2015 End: 08-26-2018 take 1 tablet by mouth once daily Multivitamin With Folic Acid (Thera) 1 TABLET tablet Discontinued 1 {tbl} PO DAILY February 16, 2015 12:00am August 26, 2018 8:48am SUPPLEMENT Start: 02-16-2015 End: 08-26-2018 take 1 tablet by mouth once daily Multivitamin With Folic Acid (Thera) 1 TABLET tablet Discontinued 1 {tbl} PO DAILY February 16, 2015 12:00am August 26, 2018 8:48am Start: 02-16-2015 End: 08-26-2018 take 1 tablet by mouth once daily Multivitamin With Folic Acid (Thera) 1 TABLET tablet Discontinued 1 TABLET PO DAILY February 16, 2015 12:00am August 26, 2018 8:48am Start: 02-16-2015 End: 08-26-2018 take 1 tablet by mouth once daily Multivitamin With Folic Acid (Thera) 1 TABLET tablet Discontinued 1 TABLET PO DAILY February 15, 2015 11:00pm August 26, 2018 7:48am Exryufckkggu-Wk-Fyzl-Mineral s (One Daily Women's) 1 EACH tablet (8 sources) Start: 10-16-2018 End: 10-25-2018 take 1 tablet by mouth once daily Xwxvxcphsuto-Xm-Gyon-Minerals (One Daily Women's) 1 EACH tablet Discontinued 1 NMA PO DAILY October 16, 2018 1:00am October 25, 2018 7:12am SUPPLEMENT Start: 10-16-2018 End: 10-25-2018 take 1 tablet by mouth once daily Oxybszvmdfvm-Qw-Ilzs-Minerals (One Daily Women's) 1 EACH tablet Discontinued 1 NMA PO DAILY October 16, 2018 1:00am October 25, 2018 7:12am Start: 10-16-2018 End: 10-25-2018 take 1 tablet by mouth once daily Smkisdsyccuw-Pr-Myae-Minerals (One Daily Women's) 1 EACH tablet Discontinued 1 EACH PO DAILY October 16, 2018 1:00am October 25, 2018 7:12am Start: 10-16-2018 End: 10-25-2018 take 1 tablet by mouth once daily Xvmvrlciiokq-Nh-Khrj-Minerals (One Daily Women's) 1 EACH tablet Discontinued 1 EACH PO DAILY October 16, 2018 12:00am October 25, 2018 6:12am neomycin sulfate 500 mg oral tablet (8 sources) Aminoglycoside Antibacterial Start: 10-23-2018 End: 10-25-2018 Neomycin 500 MG tablet Discontinued 2 {tbl} PO DIRECTED October 23, 2018 1:00am October 25, 2018 7:12am antibiotic Start: 10-23-2018 End: 10-25-2018 Neomycin Discontinued 2 TABL ET PO DIRECTED October 23, 2018 12:00am October 25, 2018 6:12am predniSONE 20 mg oral tablet (3 sources) Start: 11-02-2024 End: 11-07-2024 take 2 tablets by mouth once daily Prednisone 20 mg tablet Discontinued 40 mg PO daily 10 5 0 November 02, 2024 1:00am November 06, 2024 1:00am November 07, 2024 1:16am ubidecarenone 75 mg oral capsule (8 sources) Start: 06-10-2020 End: 02-20-2024 Coenzyme Q10 (Ultra Coq10) 75 mg capsule Discontinued 75 mg PO DAILY June 10, 2020 12:00am February 20, 2024 10:54am Problems Active Problems Problem Classification Problem Date Documented Da te Episodic/Chronic Abdominal pain (8 sources) Abdominal pain; Translations: [Unspecified abdominal pain] 08-23-2018 Episodic Conditions associated with dizziness or vertigo (8 sources) Vertigo, acute onset with vomiting and inability to stand; Translations: [Dizziness and giddiness] 10-23-2018 Episodic Disorders of lipid metabolism (8 sources) Hyperlipidemia; Translations: [Hyperlipidemia, unspecified] 10-23-2018 Chronic Osteoporosis (1 source) Age-related osteoporosis without current pathological fracture; Translations: [Age-related osteoporosis without current pathological fracture] Onset: 02-19-2025 Chronic Other diseases of kidney and ureters (8 sources) Renal impairment; Translations: [Disorder of kidney and ureter, unspecified] 10-23-2018 Episodic Other gastrointestinal disorders (8 sources) Pneumoperitoneum; Translations: [Other specified disorders of peritoneum] 08-23-2018 Episodic Other gastrointestinal disorders (6 sources) Diarrhea; Translations: [Diarrhea, unspecified] 10-24-2022 Episodic Other nervous system disorders (8 sources) Ataxia; Translations: [Other lack of coordination] 10-23-2018 Episodic Other screening for suspected conditions (not mental disorders or infectious disease) (5 sources) Patient encounter status; Translations: [Encounter for screening for malignant neoplasm of colon] Onset: 11-26-2024 04-01-2025 Episodic Other upper respiratory infections (5 sources) Upper respiratory infection; Translations: [Acute upper respiratory infection, unspecified] 11-02-2024 Episodic Unclassified (1 source) Cough, unspecified; Translations: [Cough, unspecified] Onset: 11-02-2024 Viral infection (8 sources) Recurrent herpes simplex labialis; Translations: [Herpesviral vesicular dermatitis] 10-23-2018 Episodic Past or Other Problems Problem Classification Problem Date Documented Da te Episodic/Chronic Malaise and fatigue (1 source) Other fatigue; Translations: [Other fatigue] Onset: 08-04-2024 Episodic Other gastrointestinal disorders (1 source) Diarrhea, unspecified; Translations: [Diarrhea, unspecified] Onset: 11-01-2024 Episodic Unclassified (8 sources) bunion surgery 03-24-2022 Results Test Name Value Interpretation Reference Range Facility Colonoscopy Reporton 025 Colonoscopy Report [facility] Medical Records Department [address] [place] [id number] Colonoscopy Report MR#: [id number] Acct: [id number] Name: SHADIA TURNER Rep #: [id number] : 1940 84 From: James Hwang DO PCP: Dr. Doroteo Dominguez MD Status:[facility] Patient Name: Shadia Turner Procedure Date: 04/01/2025 10:19 AM Date of : 1940 Age: 84 Procedure: Colonoscopy Indications: Screening for colorectal malignant neoplasm Providers: James Hwang DO Referring MD: Doroteo Dominguez Medicines: Monitored Anesthesia Care Patient Profile: This is an 84 year old female. Refer to note in patient chart for documentation of history and physical. Last Colonoscopy: several years ago. Complications: No immediate complications. Procedure: Pre-Anesthesia Assessment: [...] and proposed procedure were verified by the physician in the pre-procedure area. Mental Status Examination: alert and oriented. Airway Examination: normal oropharyngeal airway and neck mobility. Respiratory Examination: clear to auscultation. CV Examination: normal. Prophylactic Antibiotics: The patient does not require prophylactic antibiotics. Prior Anticoagulants: The patient has taken no anticoagulant or antiplatelet agents except for NSAID medication. ASA Grade Assessment: II - A patient [...] and advanced to the cecum, identified by appendiceal orifice and ileocecal valve. The colonoscopy was performed without difficulty. The patient tolerated the procedure well. The quality of the bowel preparation was adequate. The ileocecal valve, appendiceal orifice, and rectum were photographed. Scope In: 10:32:51 AM Scope Withdrawal Time 0 hours 8 minutes 11 seconds Scope Out: 10:45:35 AM Total Procedure Duration Time 0 hours 12 minutes 44 seconds Findings: The perianal and digital rectal examinations were normal. Multiple small and large-mouthed diverticula were found in the recto-sigmoid colon and sigmoid colon. A 5 mm polyp was found in the ascending colon. The polyp was sessile. The polyp was removed with a cold biopsy forceps. Resection and retrieval were complete. Verification of patient identification for the specimen was done. Estimated blood loss was minimal. Impression: - Diverticulosis in the recto-sigmoid colon and in the sigmoid colon. - One 5 mm polyp in the ascending colon, removed with a cold snare. Resected and retrieved. Recommendation: - Discharge patient to home. - Resume previous diet. - Continue present medications. - Await pathology results. - No repeat colonoscopy due to age. Procedure Code(s): --- Professional --- 79708, Colonoscopy, flexible; with biopsy, single or multiple CPT copyright 2021 [employer]. All rights reserved. The codes documented in this report are preliminary and upon box toe stitcher review may be revised to meet current compliance requirements. James Hwang DO 04/01/2025 10:56:10 AM This report has been signed electronically. Number of Addenda: 0 Note Initiated On: 04/01/2025 10:19 AM 04/01/25 1056 Date James Hwang DO Cosigner Signature: Date (if indicated) CC: Dr. Doroteo Dominguez MD; James Hwang DO Date Dictated: 04/01/25 1019 Date Transcribed: Unit Assistant: RF Signed [facility] Medical Records Department [address] [place] [address] Provation Physician Letter MR#: [id number] Acct: [id number] Name: HSADIA TURNER Rep #: [id number] : 1940 84 From: James Hwang DO PCP: Dr. Doroteo Dominguez MD Status:[facility] 04/01/2025 Doroteo Dominguez [address] [place] [address] Re : Colonoscopy procedure for Shadia Turner Dear Dr. Dominguez This procedure was performed on Tuesday, April 01, 2025. My impressions and recommendations are as follows: Impressions : - Diverticulosis in the recto-sigmoid colon and in the sigmoid colon. - One 5 mm polyp in the ascending colon, removed with a cold snare. Resected and retrieved. Recommendations : - Discharge patient to home. - Resume previous diet. - Continue present medications. - Await pathology results. - No repeat colonoscopy due to age. My findings are described in the full procedure note, which is enclosed. If I can be of further assistance, please feel free to contact me at . Sincerely, James Hwang DO 04/01/2025 10:56:10 AM This report has been signed electronically. 04/01/25 1056 Date James Hwang DO Cosigner Signature: Date (if indicated) CC: Dr. Doroteo Dominguez MD; James Hwang DO Date Dictated: 04/01/25 1019 Date Transcribed: Unit Assistant: MARIEL Signed [facility] MR/POSTOP.[facility] 04-01-2025 MR/POSTOP[facility] Medical Records Department [address] [place] [address] Anesthesia Postop Eval I 04/01/25 1100 MR#: [id number] Acct: [id number] Name: SHADIA TURNER Rep #: [id number] : 1940 84 From: Ryan Andujar PCP: Dr. Doroteo Dominguez MD Status:REG SDC Y Race: C Location: [place] [address] Anesthesia: Postop Eval I Current Vital Signs Temperature: 97.9 F Pulse Rate: 71 Blood Pressure: 86/50 Respiratory Rate: 16 Pulse Ox: 96 Oxygen Delivery Method: Room Air Assessment Airway patent: Yes Spontaneous unlabored respirations: Yes Mental status: Asleep nausea: No Vomiting: No Anesthesia Complication: No Fluid Hydration Crystalloid volume administer (ml): 400 Total IV fluid infused: 400 Progress Note Anesthesia document: Postop Eval 1 completed: Yes 04/01/25 1101 Date Ryan Can Signature: Date CC: Signed Normal [facility] MR/VXGNLMLO1po 04-01-2025 MR/POSTOPAN2 [facility] Medical Records Department [address] [place] [address] Anesthesia Postop Eval II 04/01/25 1114 MR#: [id number] Acct: [id number] Name: SHADIA TURNER Rep #: [id number] : 1940 84 From: Craig Burdick MD PCP: Dr. Doroteo Dominguez MD Status:[facility] Y Race: C Location: [place] [address] Anesthesia Postop Eval I Sum Postop Eval Completion status Anesthesia document: Postop Eval 1 completed: Yes Anesthesia Postop Eval I Summary Anesthesia Postop Eval I Summary: Anesthesia Postop Eval I: Assessment Summary Airway patent Yes 04/01/25 11:01 [email or web address] Spontaneous unlabored Yes 04/01/25 11:01 [email or web address] respirations Mental status Asleep 04/01/25 11:01 [email or web address] nausea No 04/01/25 11:01 [email or web address] Vomiting No 04/01/25 11:01 [email or web address] Anesthesia Postop Eval I: Fluid Summary Crystalloid volume administer 400 04/01/25 11:01 [email or web address] (ml) Colloids volume administered ( ml) Blood Product volume administered (ml) Total IV fluid infused 400 04/01/25 11:01 [email or web address] Anesthesia Postop Eval I: Summary Notes Anesthesia Complication No 04/01/25 11:01 [email or web address] Anesthesia Complication Comment: Post-operative progress note Anesthesia: Postop Eval II Evaluation Mental status: Awake and Calm Pain Level: 0 nausea: No Vomiting: No Progress Note Post-operative progress note: Tolerated well Complications Anesthesia Complication: No 04/01/25 1116 Date Craig Burdick [facility] Signature: Date CC: Signed Normal [facility] Bone density reportOrdered B y: Dominic Haywood on 11-18-2024 Study report Skeletal system DXA [facility] Imaging Services [address] [place], [place] [id number] Dexa Bone Density Study MR#: [id number] Acct: [id number] Name: SHADIA TURNER Rep #: [id number] : 1940 F 84 From: Elmer Haywood MD PCP: Dr. Doroteo Dominguez MD Status: [facility] Study:Dexa Bone Density Study Date of Exam: 11/18/24 Exam# [id number] Ordering Dr: Sy Dominguez MD PROCEDURE: DEXA BONE DENSITY STUDY 11/18/2024 REASON FOR EXAM: F, age 84 y/o . Postmenopausal. TECHNIQUE: DEXA scan of the lumbar spine and both hips. COMPARISON: Comparison is made with prior study dated September 15, 2020. FINDINGS: Lumbar Spine (L1-L4): g/cm2 (0.800)/T-score (-2.0)/Z-score (0.7) findings are suggestive of osteopenia with a moderate fracture risk. Left Femur Total: g/cm2 (0.676)/T-score (-2.2)/Z-score (0.0) Left Femoral Neck: g/cm2 (0.620)/T-score (-2.1)/Z-score (0.3) Right Femur Total: g/cm2 (0.684)/T-score (-2.1)/Z-score (0.1) Right Femoral Neck: g/cm2 (0.592)/T-score (-2.3)/Z-score (0.1) The T-Scores on the most recent prior examination were: Lumbar Spine (L1-L4): There has been worsening of bone density since the previous examination. Left Femur Total: Improvement of 5.3%. Right Femur Total: Improvement of 5.8%. BD/Dexa Bone Density Study IMPRESSION: The patient is considered osteopenia as outlined below according to World [employer] Organization (WHO) criteria with a high fracture risk. There has been improvement of bone density since the previous examination. Reading Location: [place] [address] CC: Dr. Doroteo Dominguez MD ~ Unit Assistant: Signed [facility] Breast imaging reportOrdered By: Lorie Iglesias on 11-18-2024 Study report [facility] Imaging Services [address] [place] [address] SCRN MAMM (CAD)W/JIM BILAT MR#: [id number] Acct: [id number] Name: SHADIA TURNER Rep #: [id number] : 1940 84 From: Bambi Iglesias MD PCP: Dr. Doroteo Dominguez MD Status: [facility] Study:SCRN MAMM (CAD)W/JIM BILAT Date of Exa m: 11/18/24 Exam# [id number] Ordering Dr: Sy Dominguez MD PROCEDURE: SCRN MAMM (CAD)W/JIM BILAT REASON FOR EXAM: F, Age 84 y/o , SCREENING. No family history of breast cancer. TECHNIQUE: Bilateral screening digital breast tomosynthesis with 2D and 3D images. Computeraided detection. COMPARISON: 08/03/2023 FINDINGS: There are scattered areas of fibroglandular density. No suspicious masses, areas of developing architectural distortion, or suspicious calcifications. BI/SCRN MAMM (CAD)W/JIM BILAT IMPRESSION: There is no mammographic evidence of malignancy. BI-RADS 1: NEGATIVE. RECOMMEND ANNUAL MAMMOGRAPHIC SCREENING. Follow-up code: Routine Follow-up The patient will be notified of the results by letter. Reading Location: [id number] CC: Dr. Doroteo Dominguez MD ~ Unit Assistant: Signed [facility] Dexa Bone Density Studyon Dexa Bone Density Study [facility] Imaging Services [address] [place], [place] [address] Dexa Bone Density Study MR#: [id number] Acct: [id number] Name: SHADIA TURNER Rep #: [id number] : 1940 F 84 From: Dominic tirado MD PCP: Dr. Doroteo Dominguez MD Status: [facility] Study: Dexa Bone Density Study Date of Exam: 11/18/24 Exam# [id number] Ordering Dr: Doroteo Dominguez MD PROCEDURE: DEXA BONE DENSITY STUDY 11/18/2024 REASON FOR EXAM: F, age 84 y/o . Postmenopausal. TECHNIQUE: DEXA scan of the lumbar spine and both hips. COMPARISON: Comparison is made with prior study dated September 15, 2020. FINDINGS: Lumbar Spine (L1-L4): g/cm2 (0.800)/T-score (-2.0)/Z-score (0.7) findings are suggestive of osteopenia with a moderate fracture risk. Left Femur Total: g/cm2 (0.676)/T-score (-2.2)/Z-score (0.0) Left Femoral Neck: g/cm2 (0.620)/T-score (-2.1)/Z-score (0.3) Right Femur Total: g/cm2 (0.684)/T-score (-2.1)/Z-score (0.1) Right Femoral Neck: g/cm2 (0.592)/T-score (-2.3)/Z-score (0.1) The T-Scores on the most recent prior examination were: Lumbar Spine (L1-L4): There has been worsening of bone density since the previous examination. Left Femur Total: Improvement of 5.3%. Right Femur Total: Improvement of 5.8%. BD/Dexa Bone Density Study IMPRESSION: The patient is considered osteopenia as outlined below according to World [employer] Organization (WHO) criteria with a high fracture risk. There has been improvement of bone density since the previous examination. Reading Location: [place] [address] CC: Dr. Doroteo Dominguez MD Unit Assistant: Signed Normal [facility] SCRN MAMM (CAD)W/JIM BILATo n 11-18-2024 SCRN MAMM (CAD)W/JIM BILAT [facility] Imaging Services [address] [place] [id number] SCRN MAMM (CAD)W/JIM BILAT MR#: [id number] Acct: [id number] Name: SAHDIA TURNER Rep #: [id number] : 1940 F 84 From: Lorie Iglesias MD PCP: Dr. Doroteo Dominguez MD Status: REG CLI Study: SCRN MAMM (CAD)W/JIM BILAT Date of Exam: 11/01 04/27 Exam# [id number] Ordering Dr: Doroteo Dominguez MD PROCEDURE: SCRN MAMM (CAD)W/JIM BILAT REASON FOR EXAM: F, Age 84 y/o , SCREENING. No family history of breast cancer. TECHNIQUE: Bilateral screening digital breast tomosynthesis with 2D and 3D images. Computer aided detection. COMPARISON: 08/03/2023 FINDINGS: There are scattered areas of fibroglandular density. No suspicious masses, areas of developing architectural distortion, or suspicious calcifications. BI/SCRN MAMM (CAD)W/JIM BILAT IMPRESSION: There is no mammographic evidence of malignancy. BI-RADS 1: NEGATIVE. RECOMMEND ANNUAL MAMMOGRAPHIC SCREENING. Follow-up code: Routine Follow-up The patient will be notified of the results by letter. Reading Location: [facility] CC: Dr. Doroteo Dominguez MD Unit Assistant: Signed Normal [facility] Laboratory - Microbiology an d Antimicrobial susceptibilityOrdered By: Krishna Carroll on 11-02-2024 SARS-CoV-2 (COVID-19) RNA ROZ+probe Ql (Unsp spec) Not detected [facility] No Panel InformationOrdered By: Krishna Carroll on 11-02-2024 Influenza Types A,B Rapid (Clinic) Negative [facility] Office Visit Reporton 2024 Office Visit Report [facility] [address] [place] [address] OFFICE VISIT Date of Service: 11/02/24 MR#: [id number] Acct: [id number] Patient: SHADIA TURNER Rep #: [id number] : 1940 Provider: MAURISIO zabala Age/Sex: 84/F Location: [facility] Status: Signed Intake Vital Signs 08/22/24 11:01 11/02/24 13:40 Height 5 ft BP 110/62 Position Sitting Pulse 63 Temp 98.7 F Temp Source Oral Pulse Oximetry (%) 96 Oxygen Delivery Method room air Intake Visit Reasons: Cough Allergies Iodine and Iodide Containing Produc Allergy (Verified 11/02/24 13:39) Rash latex Allergy (Verified 11/02/24 13:39) Rash adhesive Adverse Reaction (Verified 11/02/24 13:39) Rash amoxicillin (From Augmentin) Adverse Reaction (Verified 11/02/24 13:39) Diarrhea clavulanic acid (From Augmentin) Adverse Reaction (Verified 11/02/24 13:39) Diarrhea Medications ???Medication ???Instructions ???Recorded ???Confirmed ???Type magnesium amino acid chelate 100 1 tab PO DAILY SUPPLEMENT 10/16/18 11/02/24 History mg tablet multivitamin (Multiple Vitamins 1 tab PO DAILY 06/10/20 11/02/24 H istory tablet) meclizine 25 mg tablet 25 mg PO TID PRN dizziness 02/19/ 4 08/22/24 History albuterol sulfate 90 mcg/actuation 2 puff inhalation Q4-6H PRN 03/0 10/2811/02/24 Rx aerosol inhaler shortness of breath or wheezing #6.7 grams azithromycin 250 mg tablet See Rx Instructions PO .COMPLEX #6 11/02/24 11/02/24 Rx (Zithromax Z-Pino) tabs Have you fallen in the past year?: No Nurse's Note: Patient has a cough, wheezing and SOB, fever. patient states slight sinus pressure and congestion. PFSH Medical History bunion surgery Hyperlipidemia Surgical History H/O colectomy H/O removal of cyst History of surgical removal of intestinal structure Hx of removal of ovary Family History Mother Hypertension Social History household members: spouse housing: house Smoking Status: Never smoker alcohol intake: never substance use type: does not use what type of physical activity do you participate in: swimming and aerobics frequency: 3-4 times per week seatbelt use: always do you feel safe at home: Yes HPI HPI Details: SHADIA TURNER, is a 84 F who presents to the office today for concerns regarding cough, wheezing, shortness of breath, and fever. She acknowledges sinus pressure and nasal congestion. ROS Const Constitutional: Positive for fever(s); No body ache, chills, fatigue, headache(s) or change in appetite Eyes Eyes: No blurry vision, change in vision, double vision, irritation, discharge, vision loss, dry eyes, bulging eyes, floaters, visual disturbances, eye pain, Light sensitivity, spots in vision, tunnel vision or other ENT ENT: Positive for nasal congestion and sinus pressure; No ear or mastoid pain, ear discharge, ear pressure, tinnitus, dizziness/vertigo, nosebleed/epistaxis, nose pain, sinus pain, nasal discharge, post nasal drip, headache(s), facial pain, dental pain, difficulty swallowing, bad breath, hoarseness, lip swelling, mouth lesions, mouth pain, neck pain, sore throat, tongue swelling or throat swelling Resp Respiratory: Positive for cough, shortness of breath and wheezing; No change in phlegm color, chest congestion, hemoptysis, pain on inspiration, pain with cough or stridor Cardio Cardiology: No chest pain at rest, chest pain with exertion, shortness of breath, dyspnea on exertion or lightheadedness Gastro GI: No abdominal pain, change in bowel habits or difficulty swallowing Genitourinary-Female: No burning urination or urinary frequency Musc Musculoskeletal: No joint pain or neck pain Skin Skin: No rash Neuro Neurology: No headache(s) or visual disturbances Psych Psychiatric: No change in appetite Endo Endocrine: No fatigue Aller/Imm Allergy/Immunologic: Positive for wheezing; No lip swelling, throat swelling or tongue swelling Exam Const General: cooperative, healthy appearing, comfortable and no acute distress Orientation: alert, awake and oriented x3 HENMT Head: normal to inspection and normocephalic Ears: hearing grossly normal bilaterally, external ears normal and TM's normal bilaterally Nose: external nose normal, nares normal and no nasal discharge Face and sinus: normal facial exam and sinuses nontender Mouth: oral mucosae normal, lip normal, tongue normal, oropharynx normal and moist mucous membranes Throat: posterior oropharynx normal, tonsils normal, uvula midline and no postnasal drainage Eyes General: appearance normal, both eyes and all related structures Neck Neck: normal (more content not included)... Normal [facility] L3410.9999on 10-07-2024 [facility] Misc. Normal [facility] Comment on above: Order Comment: [id number] 4STOOL CULTURE RT Result Comment: TEST RESULTS LIMITS Stool Culture Salmonella/Shigella Screen Final report Result 1 No Salmonella or Shigella recovered. Campylobacter Culture Final report Result 1 No Campylobacter species isolated. E coli Shiga Toxin EIA Negative Negative TESTING PERFORMED AT [facility] ORIGINAL REPORT ON FILE IN LAB CONTAINS ADDITIONAL TEST SITE INFORMATION. Performed By: #### L 3410.9999 ####[facility] [address] [place], [address] ANTINUCLEAR ANTIBODIES DIREC Ton 09-30-2024 PERLITA,DIRECT Negative Normal Negative [facility] Comment on above: Order Comment: Order Date: 09/26/24Order Info: 269- - PERLITA Result Comment: Perf ormed at: - [facility] [address] [id number] [employer] Lifeguard: Aster Villegas MD, Phone: [phone] Performed at: - [facility] [address] [id number] [employer]ard: Juanjo Brown PhD, Phone: [phone] Performed By: #### L 3100.5475, L101.9900, L500.4050, L501.6710, L501.2450, L3410.0270 ####[facility] [address] [place], [address] L5500.0550on 09-30-2024 BEEF <0.10 Normal Class 0 [facility] Comment on above: Order Comment: Order Date: 09/26/24Order Info: 269-09 - PERLITA Performed By: #### L 5500.0550 ####[facility] [address] [place], [address] CHOCOLATE <0.10 Normal Class 0 [facility] Comment on above: Order Comment: Order Date: 09/26/24Order Info: 269- - PERLITA Performed By: #### L 5500.0550 ####[facility] [address] [place], [address] CODFISH <0.10 Normal Class 0 [facility] Comment on above: Order Comment: Order Date: 09/26/24Order Info: 269- - PERLITA Performed By: #### L 5500.0550 ####[facility] [address] [place], [address] COMMENT Comment Normal . [facility] Comment on above: Order Comment: Order Date: 09/26/24Order Info: 0-1 - PERLITA Result Comment: Shaq crouch of Specific IgE Class Description of Class ----- < 0.10 0 Negative 0.10 - 0.31 0/I Equivocal/Low 0.32 - 0.55 I Low 0.56 - 1.40 II Moderate 1.41 - 3.90 III High 3.91 - 19.00 IV Very High 19.01 - 100.00 V Very High >100.00 Very High Performed By: #### L 5500.0550 ####[facility] [address] [place], [address] CORN <0.10 Normal Class 0 [facility] Comment on above: Order Comment: Order Date: 09/26/24Order Info: 0- - PERLITA Performed By: #### L 5500.0550 ####[facility] [address] [place], [address] EGG, WHOLE <0.10 Normal Class 0 [facility] Comment on above: Order Comment: Order Date: 09/26/24Order Info: 0-1 - PERLITA Performed By: #### L 5500.0550 ####[facility] [address] [place], [address] MILK (COW) <0.10 Normal Class 0 [facility] Comment on above: Order Comment: Order Date: 09/26/24Order Info: 0-1 - PERLITA Performed By: #### L 5500.0550 ####[facility] [address] [place], [address] MUSSELS <0.10 Normal Class 0 [facility] Comment on above: Order Comment: Order Date: 09/26/24Order Info: 0-1 - PERLITA Performed By: #### L 5500.0550 ####[facility] [address] [place], [address] PEANUT <0.10 Normal Class 0 [facility] Comment on above: Order Comment: Order Date: 09/26/24Order Info: 0- - PERLITA Performed By: #### L 5500.0550 ####[facility] [address] [place], [address] PORK <0.10 Normal Class 0 [facility] Comment on above: Order Comment: Order Date: 09/26/24Order Info: 0- - PERLITA Performed By: #### L 5500.0550 ####[facility] [address] [place], [address] SALMON <0.10 Normal Class 0 [facility] Comment on above: Order Comment: Order Date: 09/26/24Order Info: 0- - PERLITA Performed By: #### L 5500.0550 ####[facility] [address] [place], [address] SHRIMP <0.10 Normal Class 0 [facility] Comment on above: Order Comment: Order Date: 09/26/24Order Info: 0- - PERLITA Performed By: #### L 5500.0550 ####[facility] [address] [place], [address] SOYBEAN <0.10 Normal Class 0 [facility] Comment on above: Order Comment: Order Date: 09/26/24Order Info: 0- - PERLITA Performed By: #### L 5500.0550 ####[facility] [address] [place], [address] TUNA <0.10 Normal Class 0 [facility] Comment on above: Order Comment: Order Date: 09/26/24Order Info: 0- - PERLITA Performed By: #### L 5500.0550 ####[facility] [address] [place], [address] WHEAT <0.10 Normal Class 0 [facility] Comment on above: Order Comment: Order Date: 09/26/24Order Info: 0270-1 - PERLITA Performed By: #### L 5500.0550 ####[facility] [address] [place], [place], [address] pH, Stoolon 09-30-2024 pH, STOOL 7.5 Normal 7.0-7.5 [facility] Comment on above: Order Comment: Test( s) 770443-fN, Stoolwas developed and its performance characteristicsdetermined by [facility]. It has not been cleared or approvedby the Food and Drug Administration. Result Comment: Perf ormed at: [address] [id number] [employer] Lifeguard: Juanjo Brown PhD, Phone: [phone] Performed By: #### L 6396.0353 ####[facility] [address] [place], [place], [id number] Celiac AB,Comprehensiveon ANTIGLIADIN IGA 4 units Normal 0-19 [facility] Comment on above: Order Comment: Order Date: 09/26/24Order Info: 0751-1 - CELAB Result Comment: Nega tive 0 - 19 Weak Positive 20 - 30 Moderate to Strong Positive >30 Performed By: #### L 3100.5475, L101.9900, L500.4050, L501.6710, L501.2450, L3410.2350 ####[facility] [address] [place], [place], [address] ANTIGLIADIN IGG 2 units Normal 0-19 [facility] Comment on above: Order Comment: Order Date: 09/26/24Order Info: 0751-1 - CELAB Result Comment: Nega tive 0 - 19 Weak Positive 20 - 30 Moderate to Strong Positive >30 Performed By: #### L 3100.5475, L101.9900, L500.4050, L501.6710, L501.2450, L3410.2350 ####[facility] [address] [place], [place], [address] ENDOMYSIAL IGA Negative Normal Negative [facility] Comment on above: Order Comment: Order Date: 09/26/24Order Info: 075-1 - CELAB Performed By: #### L 3100.5475, L101.9900, L500.4050, L501.6710, L501.2450, L3410.2350 ####[facility] [address] [place], [place], [address] IMMUNOGLOB A QN 162 mg/dL Normal 64-422 [facility] Comment on above: Order Comment: Order Date: 09/26/24Order Info: 075- - CELAB Result Comment: Perf ormed at: [facility] [id number] [employer] Lifeguard: Juanjo Brown PhD, Phone: [phone] Performed By: #### L 3100.5475, L101.9900, L500.4050, L501.6710, L501.2450, L3410.2350 ####[facility] [address] [place], [place], [id number] tTG IGA <2 Normal 0-3 [facility] Comment on above: Order Comment: Order Date: 09/26/24Order Info: 075- - CELAB Result Comment: Nega tive 0 - 3 Weak Positive 4 - 10 Positive >10 Tissue Transglutaminase (tTG) has been identified as the endomysial antigen. Studies have demonstr- ated that endomysial IgA antibodies have over 99% specificity for gluten sensitive enteropathy. Performed By: #### L 3100.5475, L101.9900, L500.4050, L501.6710, L501.2450, L3410.2350 ####[facility] [address] [place], [place], [id number] tTG IGG <2 Normal 0-5 [facility] Comment on above: Order Comment: Order Date: 09/26/24Order Info: 075-1 - CELAB Result Comment: Nega tive 0 - 5 Weak Positive 6 - 9 Positive >9 Performed By: #### L 3100.5475, L101.9900, L500.4050, L501.6710, L501.4400, L3410.2350 ####[facility] [address] [place], [address] No Panel InformationOrdered By: Doroteo Dominguez on 09-29-2024 Miscellaneous Test See comment [facility] Comment on above: TEST RESULTS LIMITSS tool Culture Salmonella/Shigella Screen Final report Result 1 No Salmonella or Shigella recovered. Campylobacter Culture Final report Result 1 No Campylobacter species isolated. E coli Shiga Toxin EIA Negative Negative TESTING PERFORMED AT [facility]. ORIGINAL REPORT ON FILE IN LAB CONTAINS ADDITIONAL TEST SITE INFORMATION. pH (Stl)Ordered By: Doroteo philippe on 09-29-2024 Stool pH 7.5 7.0-7.5 [facility] Comment on above: Performed at: [facility] [address] [id number] Director: Juanjo Brown PhD, Phone: [phone] PERLITA serumOrdered By: Doroteo arteaga on 09-26-2024 Anti-Nuclear Antibody Screen Negative Negative [facility] Comment on above: Performed at: - [facility] [employer] [address] [id number] Director: Aster Villegas MD, Phone: [phone] at: [facility] [id number] Director: Juanjo Brown PhD, Phone: [phone] Albumin to globulin ratioOrd ered By: Doroteo Dominguez on 09-26-2024 Albumin/Globulin [Mass ratio] 0.9 {ratio} 0.9-2.4 [facility] Beef IgE Qn (S)Ordered By: Mayito Dominguez on 09-26-2024 Beef Allergen (RAST) <0.10 kU/L Class 0 [facility] Bilirubin, totalOrdered By: Doroteo Dominguez on 09-26-2024 Bilirubin [Mass/Vol] 0.60 mg/dL 0.20-1.00 [facility] Comment on above: For patients on eltr ombopag therapy, use of Dimension [place] TBIL is not recommended. Blood urea nitrogen (BUN)/cr eatinine ratioOrdered By: Doroteo Dominguez on 09-26-2024 Urea nitrogen/Creatinine [Mass ratio] 15.7 mg/mg 10- [facility] C-reactive protein measureme nt by high sensitivity methodOrdered By: Doroteo Dominguez on 09-26-2024 C-Reactive Protein Extended Range < 2.90 mg/L 0.0-3.0 [facility] Comment on above: C-Reactive Protein ( CRP) provides useful information for thediagnosis, therapy and monitoring of inflammatory processesand associated diseases. For the evaluation of Relative Riskfor Cardiovascular Disease, a High Sensitivity CRP (HSCRP)should be ordered. CRPon 09-26-2024 C-REACTIVE PROT < 2.90 Normal 0.0-3.0 [facility] Comment on above: Order Comment: Order Date: 09/26/24Order Info: 0786-1 - CMPOrder Info: 3040-3 - LIPASEOrder Info: 74335-5 - CRP Result Comment: C-Re active Protein (CRP) provides useful information for the diagnosis, therapy and monitoring of inflammatory processes and associated diseases. For the evaluation of Relative Risk for Cardiovascular Disease, a High Sensitivity CRP (HSCRP) should be ordered. Performed By: #### L 3100.5410, L101.9900, L500.4050, L501.6710, L501.2450, L3410.2350 ####[facility] [address] [place], [address] Carbon dioxide measurementOr dered By: Doroteo Dominguez on 09-26-2024 CO2 [Moles/Vol] 25.0 mmol/L 21.0-32.0 [facility] Chloride measurementOrdered By: Doroteo Dominguez on 09-26-2024 Chloride [Moles/Vol] 110 mmol/L High 98-107 [facility] Chocolate IgE Qn (S)Ordered By: Doroteo Dominguez on 09-26-2024 Chocolate Allergen (RAST) <0.10 kU/L Class 0 [facility] Codfish IgE Qn (S)Ordered By : Doroteo Dominguez on 09-26-2024 Codfish Allergen (RAST) <0.10 kU/L Class 0 [facility] Comprehensive Metabolic Prof ilon 09-26-2024 Albumin [Mass/Vol] 3.4 g/dL Normal 3.2-5.0 [facility] Comment on above: Order Comment: Order Date: 09/26/24Order Info: 0786-1 - CMPOrder Info: 3040-3 - LIPASEOrder Info: 23126-9 - CRP Performed By: #### L 3100.5475, L101.9900, L500.4050, L501.6710, L501.2450, L3410.2350 ####[facility] [address] [place], [place], [address] Albumin/Globulin [Mass ratio] 0.9 {ratio} Normal 0.9-2.4 [facility] Comment on above: Order Comment: Order Date: 09/26/24Order Info: 0786-1 - CMPOrder Info: 3040-3 - LIPASEOrder Info: 47179-2 - CRP Performed By: #### L 3100.5475, L101.9900, L500.4050, L501.6710, L501.2450, L3410.2350 ####[facility] [address] [place], [place], [address] ALK P 63 U/L Normal 45-117 [facility] Comment on above: Order Comment: Order Date: 09/26/24Order Info: 0786-1 - CMPOrder Info: 3040-3 - LIPASEOrder Info: 73476-3 - CRP Performed By: #### L 3100.5475, L101.9900, L500.4050, L501.6710, L501.2450, L3410.2350 ####[facility] [address] [place], [address] ALT [Catalytic activity/Vol] 26 U/L Normal 13-56 [facility] Comment on above: Order Comment: Order Date: 09/26/24Order Info: 0786-1 - CMPOrder Info: 3040-3 - LIPASEOrder Info: 33685-7 - CRP Performed By: #### L 3100.5475, L101.9900, L500.4050, L501.6710, L501.2450, L3410.2350 ####[facility] [address] [place], [address] AST [Catalytic activity/Vol] 22 U/L Normal 15-37 [facility] Comment on above: Order Comment: Order Date: 09/26/24Order Info: 0786-1 - CMPOrder Info: 3040-3 - LIPASEOrder Info: 31511-1 - CRP Performed By: #### L 3100.5475, L101.9900, L500.4050, L501.6710, L501.2450, L3410.2350 ####[facility] [address] [place], [address] Bilirubin [Mass/Vol] 0.60 mg/dL Normal 0.20-1.00 [facility] Comment on above: Order Comment: Order Date: 09/26/24Order Info: 0786-1 - CMPOrder Info: 3040-3 - LIPASEOrder Info: 97280-1 - CRP Result Comment: For patients on eltrombopag therapy, use of Dimension Bend TBIL is not recommended. Performed By: #### L 3100.5475, L101.9900, L500.4050, L501.6710, L501.2450, L3410.2350 ####[facility] [address] [place], [address] BUN/CRE 15.7 RATIO Normal 10-20 [facility] Comment on above: Order Comment: Order Date: 09/26/24Order Info: 0786-1 - CMPOrder Info: 3040-3 - LIPASEOrder Info: 37797-9 - CRP Performed By: #### L 3100.5475, L101.9900, L500.4050, L501.6710, L501.2450, L3410.2350 ####[facility] [address] [place], [address] CA,Total 9.1 mg/dL Normal 8.5-10.1 [facility] Comment on above: Order Comment: Order Date: 09/26/24Order Info: 0786-1 - CMPOrder Info: 3040-3 - LIPASEOrder Info: 17472-6 - CRP Performed By: #### L 3100.5475, L101.9900, L500.4050, L501.6710, L501.2450, L3410.2350 ####[facility] [address] [place], [address] Chloride [Moles/Vol] 110 mmol/L High 98-107 [facility] Comment on above: Order Comment: Order Date: 09/26/24Order Info: 0786-1 - CMPOrder Info: 3040-3 - LIPASEOrder Info: 06478-2 - CRP Performed By: #### L 3100.5475, L101.9900, L500.4050, L501.6710, L501.2450, L3410.2350 ####[facility] [address] [place], [address] CO2 [Moles/Vol] 25.0 mmol/L Normal 21.0-32.0 [facility] Comment on above: Order Comment: Order Date: 09/26/24Order Info: 0786-1 - CMPOrder Info: 3040-3 - LIPASEOrder Info: 44868-6 - CRP Performed By: #### L 3100.5475, L101.9900, L500.4050, L501.6710, L501.2450, L3410.2350 ####[facility] [address] [place], [address] Creatinine [Mass/Vol] 1.08 mg/dL High 0.55-1.02 [facility] Comment on above: Order Comment: Order Date: 09/26/24Order Info: 0786-1 - CMPOrder Info: 304-3 - LIPASEOrder Info: 69185-0 - CRP Result Comment: The validity of the calculated GFR GFRAA in patients over 70 years has not been determined. Clinical correlation is essential. Performed By: #### L 3100.5475, L101.9900, L500.4050, L501.6710, L501.2450, L3410.2350 ####[facility] [address] [place], [place], [phone]) EST GFR - AA 62 mL/min Normal >60 [facility] Comment on above: Order Comment: Order Date: 09/26/24Order Info: 0786-1 - CMPOrder Info: 3039-3 - LIPASEOrder Info: 89106-1 - CRP Result Comment: Afri can Tristanian GFR Calc Performed By: #### L 3100.5475, L101.9900, L500.4050, L501.6710, L501.2450, L3410.2350 ####[facility] [address] [place], [place], [address] GAP 6 Normal 5-15 [facility] Comment on above: Order Comment: Order Date: 09/26/24Order Info: 0786-1 - CMPOrder Info: 304-3 - LIPASEOrder Info: 96525-4 - CRP Performed By: #### L 3100.5475, L101.9900, L500.4050, L501.6710, L501.2450, L3410.2350 ####[facility] [address] [place], [place], [phone](150) GFR/1.73 sq M.predicted among non-blacks MDRD (S/P/Bld) [Vol rate/Area] 51 mL/min/{1.73_m2} Low >60 [facility] Comment on above: Order Comment: Order Date: 09/26/24Order Info: 0786-1 - CMPOrder Info: 3040-3 - LIPASEOrder Info: 03631-0 - CRP Result Comment: Non- GFR Calc Performed By: #### L 3100.5475, L101.9900, L500.4050, L501.6710, L501.2450, L3410.2350 ####[facility] [address] [place], [address] Globulin (S) [Mass/Vol] 3.9 g/dL Normal 2.2-4.2 [facility] Comment on above: Order Comment: Order Date: 09/26/24Order Info: 0786-1 - CMPOrder Info: 3039-3 - LIPASEOrder Info: [id number] - CRP Performed By: #### L 3100.5475, L101.9900, L500.4050, L501.6710, L501.2450, L3410.2350 ####[facility] [address] [place], [address] Glucose [Mass/Vol] 94 mg/dL Normal 74-106 [facility] Comment on above: Order Comment: Order Date: 09/26/24Order Info: 0786-1 - CMPOrder Info: 3040-3 - LIPASEOrder Info: 53622-0 - CRP Performed By: #### L 3100.5475, L101.9900, L500.4050, L501.6710, L501.2450, L3410.2350 ####[facility] [address] [place], [place], [id number] Potassium [Moles/Vol] 3.9 mmol/L Normal 3.5-5.1 [facility] Comment on above: Order Comment: Order Date: 09/26/24Order Info: [id number] - CMPOrder Info: 3040-3 - LIPASEOrder Info: [id number] - CRP Performed By: #### L 3100.5475, L101.9900, L500.4050, L501.6710, L501.2450, L3410.2350 ####[facility] [address] [place], [address] Sodium [Moles/Vol] 141 mmol/L Normal 136-145 [facility] Comment on above: Order Comment: Order Date: 09/26/24Order Info: [id number] - CMPOrder Info: 304-3 - LIPASEOrder Info: [id number] - CRP Performed By: #### L 3100.5475, L101.9900, L500.4050, L501.6710, L501.2450, L3410.2350 ####[facility] [address] [place], [address] T PROT 7.3 g/dL Normal 6.4-8.2 [facility] Comment on above: Order Comment: Order Date: 09/26/24Order Info: [id number] - CMPOrder Info: 304-3 - LIPASEOrder Info: [id number] - CRP Performed By: #### L 3100.5475, L101.9900, L500.4050, L501.6710, L501.2450, L3410.2350 ####[facility] [address] [place], [address] Urea nitrogen [Mass/Vol] 17 mg/dL Normal 7-18 [facility] Comment on above: Order Comment: Order Date: 09/26/24Order Info: [id number] - CMPOrder Info: [id number] - LIPASEOrder Info: [id number] - CRP Performed By: #### L 3100.5475, L101.9900, L500.4050, L501.6710, L501.2450, L3410.2350 ####[facility] [address] [place], [address] Zeigler IgE Qn (S)Ordered By: Mayito Dominguez on 09-26-2024 Zeigler Allergen (RAST) <0.10 kU/L Class 0 [facility] Cow milk IgE Qn (S)Ordered B y: Doroteo Dominguez on 09-26-2024 Cow's Milk Allergen <0.10 kU/L Class 0 [facility] Deamidated gliadin IgA antib elise assayOrdered By: Doroteo Dominguez on 09-26-2024 Anti-Gliadin IgA Antibody 4 units 0-19 [facility] Comment on above: Negative 0 - 19 Weak Positive 20 - 30 Moderate to Strong Positive >30 Deamidated gliadin IgG antib elise assayOrdered By: Doroteo Dominguez on 09-26-2024 Anti-Gliadin IgG Antibody 2 units 0-19 [facility] Comment on above: Negative 0 - 19 Weak Positive 20 - 30 Moderate to Strong Positive >30 Endomysial IgA antibody assa yOrdered By: Doroteo Dominguez on 09-26-2024 Endomysial IgA Antibody Negative Negative [facility] Erythrocyte Sed Rateon 09-26 SED RATE 4 mm/hr Normal 0-30 [facility] Comment on above: Order Comment: Order Date: 09/26/24Order Info: [id number] - SED Performed By: #### L 3100.5475, L101.9900, L500.4050, L501.6710, L501.2450, L3410.2350 ####[facility] [address] [place], [place], [address] Erythrocyte sedimentation ra teOrdered By: Doroteo Dominguez on 09-26-2024 ESR (Bld) [Velocity] 4 mm/h 0-30 [facility] Estimated glomerular filtrat ion rate (GFR) AmericanOrdered By: Doroteo Dominguez on 09-26-2024 Estimated GFR (MDRD) Amer 62 mL/min >60 [facility] Comment on above: GFR Calc Glomerular filtration rate ( GFR) estimationOrdered By: Doroteo Dominguez on 09-26-2024 Estimated GFR (MDRD) Non-Af Amer 51 mL/min Low >60 [facility] Comment on above: Non- GFR Calc Glucose measurementOrdered B y: Doroteo Dominguez on 09-26-2024 Glucose [Mass/Vol] 94 mg/dL 74-106 [facility] - Chemistry and C hemistry - challengeOrdered By: Doroteo Dominguez on 09-26-2024 AST [Catalytic activity/Vol] 22 U/L 15-37 [facility] Lipaseon 09-26-2024 Lipase [Catalytic activity/Vol] 34 U/L Normal 13-75 [facility] Comment on above: Order Comment: Order Date: 09/26/24Order Info: [id number] - CMPOrder Info: 3040-3 - LIPASEOrder Info: [id number] - CRP Result Comment: Plea se note: LIPASE revised reference range effective 22. New Lipase methodology. Expected to produce lower values than the previous assay method. NEW Reference Range: 13 - 75 U/L Performed By: #### L 3100.5475, L101.9900, L500.4050, L501.6710, L501.2450, L3410.2350 ####[facility] [address] [place], [address] Lipase measurementOrdered By : Doroteo Dominguez on 09-26-2024 Lipase [Catalytic activity/Vol] 34 U/L 13- [facility] Comment on above: Please note:LIPASE r evised reference range effective 22. New Lipase methodology. Expected to produce lower values than the previous assay method. NEW Reference Range: 13 - 75 U/L No Panel InformationOrdered By: Doroteo Dominguez on 09-26-2024 Tissue Transglutaminase IgG Ab <2 U/mL 0-5 [facility] Comment on above: Negative 0 - 5 Weak Positive 6 - 9 Positive >9 Peanut IgE Qn (S)Ordered By: Doroteo Dominguez on 09-26-2024 Peanut Allergen (RAST) <0.10 kU/L Class 0 [facility] Pork IgE Qn (S)Ordered By: Mayito Dominguez on 09-26-2024 Pork Allergen (RAST) <0.10 kU/L Class 0 [facility] Potassium measurementOrdered By: Doroteo Dominguez on 09-26-2024 Potassium [Moles/Vol] 3.9 mmol/L 3.5-5.1 [facility] [place] IgE Qn (S)Ordered By: Doroteo Dominguez on 09-26-2024 [place] Allergen IgE Antibody <0.10 kU/L Class 0 [facility] Serum anion gap measurementO rdered By: Doroteo Dominguez on 09-26-2024 Anion gap [Moles/Vol] 6 mmol/L 5-15 [facility] Serum globulin measurementOr dered By: Doroteo Dominguez on 09-26-2024 Globulin (S) [Mass/Vol] 3.9 g/dL 2.2-4.2 [facility] Serum immunoglobulin A measu rementOrdered By: Doroteo Dominguez on 09-26-2024 Immunoglobulin A 162 mg/dL 64-422 [facility] Comment on above: Performed at: [address] [id number] Director: Juanjo Brown PhD, Phone: [phone] Serum mussel specific IgE an tibody assayOrdered By: Doroteo Dominguez on 09-26-2024 Mussel Allergen IgE Antibody <0.10 kU/L Class 0 [facility] Serum or plasma alanine raines otransferase (ALT) measurementOrdered By: Doroteo Dominguez on 09-26-2024 ALT [Catalytic activity/Vol] 26 U/L 13-56 [facility] Serum or plasma albumin cole urement (mass/volume)Ordered By: Doroteo Dominguez on 09-26-2024 Albumin [Mass/Vol] 3.4 g/dL 3.2-5.0 [facility] Serum or plasma alkaline mali sphatase measurementOrdered By: Doroteo Dominguez on 09-26-2024 ALP [Catalytic activity/Vol] 63 U/L 45-117 [facility] Serum or plasma calcium cole urement (mass/volume)Ordered By: Doroteo Dominguez on 09-26-2024 Calcium [Mass/Vol] 9.1 mg/dL 8.5-10.1 [facility] Serum or plasma creatinine m easurement (mass/volume)Ordered By: Doroteo Dominguez on 09-26-2024 Creatinine [Mass/Vol] 1.08 mg/dL High 0.55-1.02 [facility] Comment on above: The validity of the calculated GFR & GFRAA in patients over 70 years has not been determined. Clinical correlation is essential. Serum or plasma urea nitroge n measurement (mass/volume)Ordered By: Doroteo Dominguez on 09-26-2024 Urea nitrogen [Mass/Vol] 17 mg/dL 7-18 [facility] Serum shrimp specific IgE an tibody assayOrdered By: Doroteo Dominguez on 09-26-2024 Shrimp Allergen <0.10 kU/L Class 0 [facility] Service comment (Unsp spec) [Interp]Ordered By: Doroteo Dominguez on 09-26-2024 RAST Comment Comment . [facility] Comment on above: Levels of Specific I gE Class Description of Class ----- < 0.10 0 Negative 0.10 - 0.31 0/I Equivocal/Low 0.32 - 0.55 I Low 0.56 - 1.40 II Moderate 1.41 - 3.90 III High 3.91 - 19.00 IV Very High 19.01 - 100.00 V Very High >100.00 Very High Sodium levelOrdered By: Doroteo Dominguez on 09-26-2024 Sodium [Moles/Vol] 141 mmol/L 136-145 [facility] Soybean IgE Qn (S)Ordered By : Doroteo Dominguez on 09-26-2024 Soybean Allergen (RAST) <0.10 kU/L Class 0 [facility] Total proteinOrdered By: Georgia Dominguez on 09-26-2024 Protein [Mass/Vol] 7.3 g/dL 6.4-8.2 [facility] Tuna IgE Qn (S)Ordered By: Mayito Dominguez on 09-26-2024 Tuna Allergen (RAST) <0.10 kU/L Class 0 [facility] Wheat IgE Qn (S)Ordered By: Doroteo Dominguez on 09-26-2024 Wheat Allergen (RAST) <0.10 kU/L Class 0 [facility] Whole Egg IgE Qn (S)Ordered By: Doroteo Dominguez on 09-26-2024 Egg Whole Allergen <0.10 kU/L Class 0 [facility] tTG IgA Qn (S)Ordered By: Sy Dominguez on 09-26-2024 Tissue Transglutaminase IgA Ab <2 U/mL 0-3 [facility] Comment on above: Negative 0 - 3 Weak Positive 4 - 10 Positive >10 Tissue Transglutaminase (tTG) has been identified as the endomysial antigen. Studies have demonstr- ated that endomysial IgA antibodies have over 99% specificity for gluten sensitive enteropathy. Lyme Screen W/Reflex WBon LYME SCREEN Ab Negative Normal Negative [facility] Comment on above: Order Comment: Order Date: 07/10/24 Order Info: [id number] - PROEL Order Info: [id number] - LYMS Result Comment: Lyme antibodies not detected. Reflex testing is not indicated. No laboratory evidence of infection with B. burgdorferi (Lyme disease). Negative results may occur in patients recently infected (less than or equal to 14 days) with B. burgdorferi. If recent infection is suspected, repeat testing on a new sample collected in 7 to 14 days is recommended. Performed at: [address] [id number] [employer]: Juanjo Brown PhD, Phone: [phone] Performed By: #### L 3100.3450, L3100.5475, L7000.5300, L501.9520, L101.9900, L503.0105, L506.0250, L505.7010 #### [facility] [address] [place], [place], [address] Protein Electroph, Son 07-14 Albumin [Mass/Vol] 3.4 g/dL Normal 2.9-4.4 [facility] Comment on above: Order Comment: Order Date: 07/10/24 Order Info: [id number] - PROEL Order Info: [id number] - LYMS Performed By: #### L 3100.3450, L3100.5475, L7000.5300, L501.9520, L101.9900, L503.0105, L506.0250, L505.7010 #### [facility] [address] [place], [address] (478) Albumin/Globulin [Mass ratio] 1.2 {ratio} Normal 0.7-1.7 [facility] Comment on above: Order Comment: Order Date: 07/10/24 Order Info: 006 - PROEL Order Info: [id number] - LYMS Performed By: #### L 3100.3450, L3100.5475, L7000.5300, L501.9520, L101.9900, L503.0105, L506.0250, L505.7010 #### [facility] [address] [place], [address] (548) ALPHA-1 GLOBUL 0.2 g/dL Normal 0.0-0.4 [facility] Comment on above: Order Comment: Order Date: 07/10/24 Order Info: 59-09 - PROEL Order Info: [id number] - LYMS Performed By: #### L 3100.3450, L3100.5475, L7000.5300, L501.9520, L101.9900, L503.0105, L506.0250, L505.7010 #### [facility] [address] [place], [address] (153) ALPHA-2 GLOBUL 0.6 g/dL Normal 0.4-1.0 [facility] Comment on above: Order Comment: Order Date: 07/10/24 Order Info: 006 - PROEL Order Info: [id number] - LYMS Performed By: #### L 3100.3450, L3100.5475, L7000.5300, L501.9520, L101.9900, L503.0105, L506.0250, L505.7010 #### [facility] [address] [place], [address] (361) BETA GLOBULIN 1.0 g/dL Normal 0.7-1.3 [facility] Comment on above: Order Comment: Order Date: 07/10/24 Order Info: 006 - PROEL Order Info: 9586-9 - LYMS Performed By: #### L 3100.3450, L3100.5475, L7000.5300, L501.9520, L101.9900, L503.0105, L506.0250, L505.7010 #### [facility] [address] [place], [place], [address] GAMMA GLOBULIN 1.0 g/dL Normal 0.4-1.8 [facility] Comment on above: Order Comment: Order Date: 07/10/24 Order Info: 006 - PROEL Order Info: 9586-9 - LYMS Performed By: #### L 3100.3450, L3100.5475, L7000.5300, L501.9520, L101.9900, L503.0105, L506.0250, L505.7010 #### [facility] [address] [place], [place], [address] Globulin (S) [Mass/Vol] 2.8 g/dL Normal 2.2-3.9 [facility] Comment on above: Order Comment: Order Date: 07/10/24 Order Info: 006 - PROEL Order Info: 9586-9 - LYMS Performed By: #### L 3100.3450, L3100.5475, L7000.5300, L501.9520, L101.9900, L503.0105, L506.0250, L505.7010 #### [facility] [address] [place], [place], [address] INTERPRETATION Comment Normal . [facility] Comment on above: Order Comment: Order Date: 07/10/24 Order Info: 0061 - PROEL Order Info: 9586-9 - LYMS Result Comment: Prot ein electrophoresis scan will follow via computer, mail, or chief engineer waterworks delivery. Performed By: #### L 3100.3450, L3100.5475, L7000.5300, L501.9520, L101.9900, L503.0105, L506.0250, L505.7010 #### [facility] [address] [place], [place], [address] M-SPIKE 0.4 g/dL Abnormal Not Observed [facility] Comment on above: Order Comment: Order Date: 07/10/24 Order Info: 59-09 - PROEL Order Info: 9586-9 - LYMS Performed By: #### L 3100.3450, L3100.5475, L7000.5300, L501.9520, L101.9900, L503.0105, L506.0250, L505.7010 #### [facility] [address] [place], [place], [address] NOTE: Comment Normal . [facility] Comment on above: Order Comment: Order Date: 07/10/24 Order Info: 59-09 - PROEL Order Info: [id number] - LYMS Result Comment: The SPE pattern demonstrates a single peak (M-spike) in the gamma region which may represent monoclonal protein. This peak may also be caused by circulating immune complexes, cryoglobulins, C-reactive protein, fibrinogen or hemolysis. If clinically indicated, the presence of a monoclonal gammopathy may be confirmed by immuno-fixation, as well as an evaluation of the urine for the presence of Bence-Davis protein. Performed By: #### L 3100.3450, L3100.5475, L7000.5300, L501.9520, L101.9900, L503.0105, L506.0250, L505.7010 #### [facility] [address] [place], [place], [address] Protein [Mass/Vol] 6.2 g/dL Normal 6.0-8.5 [facility] Comment on above: Order Comment: Order Date: 07/10/24 Order Info: 59-09 - PROEL Order Info: 9586-9 - LYMS Performed By: #### L 3100.3450, L3100.5475, L7000.5300, L501.9520, L101.9900, L503.0105, L506.0250, L505.7010 #### [facility] [address] [place], [place], [address] T4 Free Directon 07-14-2024 T4 FREE DIRECT 0.83 ng/dL Normal 0.76-1.46 [facility] Comment on above: Order Comment: PILAR Edmond ADD T4F TO BLOOD DRAWN 07/10/24 PER Order Date: 07/10/24Order Info: [id number] - TSHOrder Info: [id number] - RAOrder Info: 2284-8 - FOLSUNKN Performed By: #### L 506.0400 ####[facility] [address] [place], [place], [address] ANTINUCLEAR ANTIBODIES DIREC Ton 07-12-2024 PERLITA,DIRECT Negative Normal Negative [facility] Comment on above: Order Comment: Order Date: 07/10/24 Order Info: [id number] - PERLITA Result Comment: Perf ormed at: - [facility] [place] [address] [employer]: Juanjo Brown PhD, Phone: [phone] Performed By: #### L 3100.3450, L3100.5475, L7000.5300, L501.9520, L101.9900, L503.0105, L506.0250, L505.7010 #### [facility] [address] [place], [place], [address] Erythrocyte Sed Rateon 07-10 SED RATE 2 mm/hr Normal 0-30 [facility] Comment on above: Order Comment: Order Date: 07/10/24 Order Info: [id number] - SED Performed By: #### L 3100.3450, L3100.5475, L7000.5300, L501.9520, L101.9900, L503.0105, L506.0250, L505.7010 #### [facility] [address] [place], [place], [address] Folates, (Folic Acid)on FOLATES 41.20 ng/mL Normal 3.1-55.4 [facility] Comment on above: Order Comment: Order Date: 07/10/24 Order Info: 3015-3 - TSH Order Info: [id number] - RA Order Info: 2284-04 - FOLS UNK N Performed By: #### L 3100.3450, L3100.5475, L7000.5300, L501.9520, L101.9900, L503.0105, L506.0250, L505.7010 #### [facility] [address] [place], [place], [id number] Rheumatoid Factoron 07-10-20 RHEUMATOID FAC < 10.0 Normal <15 [facility] Comment on above: Order Comment: Order Date: 07/10/24 Order Info: 3015-11 - TSH Order Info: [id number] - RA Order Info: 2284-04 - FOLS UNK N Performed By: #### L 3100.3450, L3100.5475, L7000.5300, L501.9520, L101.9900, L503.0105, L506.0250, L505.7010 #### [facility] [address] [place], [place], [address] Thyroid Stim Hormone (TSH)on 07-10-2024 TSH 4.190 uIU/mL High 0.358-3.74 0 [facility] Comment on above: Order Comment: Order Date: 07/10/24 Order Info: 3015- - TSH Order Info: [id number] - RA Order Info: 2284-04 - FOLS UNK N Performed By: #### L 3100.3450, L3100.5475, L7000.5300, L501.9520, L101.9900, L503.0105, L506.0250, L505.7010 #### [facility] [address] [place], [place], [id number] Vitamin B12on 07-10-2024 Cobalamin (Vitamin B12) [Mass/Vol] 423 pg/mL Normal 211-911 [facility] Comment on above: Order Comment: Order Date: 07/10/24 Order Info: [id number] - B12 Performed By: #### L 3100.3450, L3100.5475, L7000.5300, L501.9520, L101.9900, L503.0105, L506.0250, L505.7010 #### [facility] [address] [place], [address] Gastrointestinal pathogens p jose alfredo ROZ+probe (Stl)Ordered By: Dr. Quispe on 10-25-2022 Enteric Bacteriology Rotavirus [facility] Absolute lymphocyte countOrd ered By: Dr. Quispe on 10-24-2022 Lymphocytes Auto (Unsp spec) [#/Vol] 1.58 10*3/uL 0.83-4.51 [facility] Basophil percentageOrdered B y: Dr. Quispe on 10-24-2022 Basophils/100 WBC (Bld) 0.5 % 0-1 [facility] Bilirubin [Mass/Vol] 0.80 mg/dL 0.20-1.00 [facility] Comment on above: For patients on eltr ombopag therapy, use of [place] TBIL is not recommended. Chloride [Moles/Vol] 108 mmol/L 98-107 [facility] Eosinophils/100 WBC (Bld) 0.9 % 0-5 [facility] Glucose [Mass/Vol] 119 mg/dL 74-106 [facility] Comment on above: Fasting Glucose resu lt from 100 to 125 mg/dL suggests IMPAIRED HOMEOSTASIS per A.D.A. criteria. Neutrophils (Bld) [#/Vol] 4.6 10*3/uL 2.0-7.7 [facility] Neutrophils/100 WBC (Bld) 60.6 % 47-70 [facility] Potassium [Moles/Vol] 3.5 mmol/L 3.5-5.1 [facility] Protein [Mass/Vol] 7.6 g/dL 6.4-8.2 [facility] Sodium [Moles/Vol] 139 mmol/L 136-145 [facility] WBC (Bld) [#/Vol] 7.6 10*3/uL 4.4-11.0 [facility] Blood erythrocytes count (nu mber/volume)Ordered By: Dr. Quispe on 10-24-2022 RBC (Bld) [#/Vol] 5.58 10*6/uL 4.2-5.4 [facility] Blood hemoglobin measurement (mass/volume)Ordered By: Dr. Quispe on 10-24-2022 Hemoglobin (Bld) [Mass/Vol] 16.7 g/dL 12.0-15.0 [facility] Blood lymphocytes/100 leukoc ytesOrdered By: Dr. Quispe on 10-24-2022 Lymphocytes/100 WBC (Bld) 20.7 % 19-41 [facility] Blood monocytes/100 leukocyt esOrdered By: Dr. Quispe on 10-24-2022 Monocytes/100 WBC (Bld) 16.4 % 0-10 [facility] Blood platelet mean volumeOr dered By: Dr. Quispe on 10-24-2022 Platelet mean volume (Bld) [Entitic vol] 10.7 fL 6.2-12.0 [facility] Clostridium difficile detect ion by polymerase chain reactionOrdered By: Dr. Quispe on 10-24-2022 C. difficile DNA ROZ+probe Ql (Unsp spec) [facility] Determination of erythrocyte mean corpuscular volume (MCV)Ordered By: Dr. Quispe on 10-24-2022 MCV (RBC) [Entitic vol] 89.2 fL 81-99 [facility] Hematocrit Auto (Bld) [Volum e fraction]Ordered By: Dr. Quispe on 10-24-2022 Hematocrit (Bld) [Volume fraction] 49.8 % 37-47 [facility] - Chemistry and C hemistry - challengeOrdered By: Dr. Quispe on 10-24-2022 ALP [Catalytic activity/Vol] 65 U/L 45-117 [facility] ALT [Catalytic activity/Vol] 26 U/L 13-56 [facility] CO2 [Moles/Vol] 20.0 mmol/L 21.0-32.0 [facility] Globulin (S) [Mass/Vol] 3.8 g/dL 2.2-4.2 [facility] Lipase [Catalytic activity/Vol] 103 U/L 73-393 [facility] Urea nitrogen/Creatinine [Mass ratio] 18.4 mg/mg 10-20 [facility] - Hematology and Cell countsOrdered By: Dr. Quispe on 10-24-2022 Erythrocyte distribution width (RBC) [Entitic vol] 45.0 fL 35.1-43.9 [facility] Erythrocyte distribution width (RBC) [Ratio] 13.7 % 11.6-14.6 [facility] Immature granulocytes/100 WBC (Bld) 0.900 % 0.0-0.9 [facility] Comment on above: IG% - Immature Granu locytes (promyelocytes, myelocytes and metamyelocytes) > 1% indicates that a LEFT SHIFT is Present. MCH (RBC) [Entitic mass] 29.9 pg 27.0-32.0 [facility] Nucleated RBC/100 WBC (Bld) [Ratio] 0 % 0-5 [facility] MCHC Auto (RBC) [Mass/Vol]Or dered By: Dr. Quispe on 10-24-2022 MCHC (RBC) [Mass/Vol] 33.5 g/dL 32-36 [facility] No Panel InformationOrdered By: Dr. Quispe on 10-24-2022 Estimated Creatinine Clearance Calc 17.91 ml/min [facility] Estimated GFR (MDRD) Amer 36 mL/min >60 [facility] Comment on above: GFR Calc Estimated GFR (MDRD) Non-Af Amer 30 mL/min >60 [facility] Comment on above: Non- GFR Calc Platelets bldOrdered By: Dr. Quispe on 10-24-2022 Platelets (Bld) [#/Vol] 222 10*3/uL 150-450 [facility] Serum or plasma albumin cole urement (mass/volume)Ordered By: Dr. Quispe on 10-24-2022 Albumin [Mass/Vol] 3.8 g/dL 3.2-5.0 [facility] Serum or plasma albumin/glob ulin mass ratioOrdered By: Dr. Quispe on 10-24-2022 Albumin/Globulin [Mass ratio] 1.0 {ratio} 0.9-2.4 [facility] Serum or plasma calcium cole urement (mass/volume)Ordered By: Dr. Quispe on 10-24-2022 Calcium [Mass/Vol] 9.0 mg/dL 8.5-10.1 [facility] Serum or plasma creatinine m easurement (mass/volume)Ordered By: Dr. Quispe on 10-24-2022 Creatinine [Mass/Vol] 1.74 mg/dL 0.55-1.02 [facility] Comment on above: The validity of the calculated GFR & GFRAA in patients over 70 years has not been determined. Clinical correlation is essential. Serum or plasma urea nitroge n measurement (mass/volume)Ordered By: Dr. Quispe on 10-24-2022 Urea nitrogen [Mass/Vol] 32 mg/dL 7-18 [facility] Stool lactoferrin detection by immunoassayOrdered By: Dr. Quispe on 10-24-2022 Lactoferrin IA Ql (Stl) [facility] Thin prep Papanicolaou smear with manual screeningOrdered By: Dr. Quispe on 10-24-2022 Thin prep Papanicolaou smear with manual screening 31 U/L 15-37 [facility] Thin prep Papanicolaou smear with manual screening 11 5-15 [facility] Absolute lymphocyte countOrd ered By: Dr. Dominguez on 07-10-2022 Lymphocytes Auto (Unsp spec) [#/Vol] 1.98 10*3/uL 0.83-4.51 [facility] Basophil percentageOrdered B y: Dr. Dominguez on 07-10-2022 Basophils/100 WBC (Bld) 1.0 % 0-1 [facility] Bilirubin [Mass/Vol] 0.50 mg/dL 0.20-1.00 [facility] Comment on above: For patients on eltr ombopag therapy, use of [place] TBIL is not recommended. Chloride [Moles/Vol] 110 mmol/L 98-107 [facility] Eosinophils/100 WBC (Bld) 3.2 % 0-5 [facility] Glucose [Mass/Vol] 164 mg/dL 74-106 [facility] Comment on above: Fasting Glucose resu lt greater than or equal to 126 mg/dL suggests DIABETES MELLITUS per A.D.A. criteria. Neutrophils (Bld) [#/Vol] 3.9 10*3/uL 2.0-7.7 [facility] Neutrophils/100 WBC (Bld) 56.2 % 47-70 [facility] Potassium [Moles/Vol] 4.0 mmol/L 3.5-5.1 [facility] Protein [Mass/Vol] 6.8 g/dL 6.4-8.2 [facility] Sodium [Moles/Vol] 141 mmol/L 136-145 [facility] WBC (Bld) [#/Vol] 7.0 10*3/uL 4.4-11.0 [facility] Blood erythrocytes count (nu mber/volume)Ordered By: Dr. Dominguez on 07-10-2022 RBC (Bld) [#/Vol] 5.05 10*6/uL 4.2-5.4 [facility] Blood hemoglobin measurement (mass/volume)Ordered By: Dr. Dominguez on 07-10-2022 Hemoglobin (Bld) [Mass/Vol] 15.2 g/dL 12.0-15.0 [facility] Blood lymphocytes/100 leukoc ytesOrdered By: Dr. Dominguez on 07-10-2022 Lymphocytes/100 WBC (Bld) 28.4 % 19-41 [facility] Blood monocytes/100 leukocyt esOrdered By: Dr. Dominguez on 07-10-2022 Monocytes/100 WBC (Bld) 10.3 % 0-10 [facility] Blood platelet mean volumeOr dered By: Dr. Dominguez on 07-10-2022 Platelet mean volume (Bld) [Entitic vol] 11.1 fL 6.2-12.0 [facility] Determination of erythrocyte mean corpuscular volume (MCV)Ordered By: Dr. Dominguez on 07-10-2022 MCV (RBC) [Entitic vol] 93.3 fL 81-99 [facility] Hematocrit Auto (Bld) [Volum e fraction]Ordered By: Dr. Dominguez on 07-10-2022 Hematocrit (Bld) [Volume fraction] 47.1 % 37-47 [facility] Laboratory - Chemistry and C hemistry - challengeOrdered By: Dr. Dominguez on 07-10-2022 ALP [Catalytic activity/Vol] 58 U/L 45-117 [facility] ALT [Catalytic activity/Vol] 24 U/L 13-56 [facility] CO2 [Moles/Vol] 25.0 mmol/L 21.0-32.0 [facility] Globulin (S) [Mass/Vol] 3.5 g/dL 2.2-4.2 [facility] Urea nitrogen/Creatinine [Mass ratio] 15.2 mg/mg 10-20 [facility] - Hematology and Cell countsOrdered By: Dr. Dominguez on 07-10-2022 Erythrocyte distribution width (RBC) [Entitic vol] 45.1 fL 35.1-43.9 [facility] Erythrocyte distribution width (RBC) [Ratio] 13.2 % 11.6-14.6 [facility] Immature granulocytes/100 WBC (Bld) 0.900 % 0.0-0.9 [facility] Comment on above: IG% - Immature Granu locytes (promyelocytes, myelocytes and metamyelocytes) > 1% indicates that a LEFT SHIFT is Present. MCH (RBC) [Entitic mass] 30.1 pg 27.0-32.0 [facility] Nucleated RBC/100 WBC (Bld) [Ratio] 0 % 0-5 [facility] MCHC Auto (RBC) [Mass/Vol]Or dered By: Dr. Dominguez on 07-10-2022 MCHC (RBC) [Mass/Vol] 32.3 g/dL 32-36 [facility] No Panel InformationOrdered By: Dr. Dominguez on 07-10-2022 Estimated GFR (MDRD) Amer 60 mL/min >60 [facility] Comment on above: GFR Calc Estimated GFR (MDRD) Non-Af Amer 50 mL/min >60 [facility] Comment on above: Non- GFR Calc Thyroid Stimulating Hormone (TSH) 3.47 uIU/mL 0.358-3.74 [facility] Platelets bldOrdered By: Dr. Dominguez on 07-10-2022 Platelets (Bld) [#/Vol] 252 10*3/uL 150-450 [facility] Serum or plasma albumin cole urement (mass/volume)Ordered By: Dr. Dominguez on 07-10-2022 Albumin [Mass/Vol] 3.3 g/dL 3.2-5.0 [facility] Serum or plasma albumin/glob ulin mass ratioOrdered By: Dr. Dominguez on 07-10-2022 Albumin/Globulin [Mass ratio] 0.9 {ratio} 0.9-2.4 [facility] Serum or plasma calcium cole urement (mass/volume)Ordered By: Dr. Dominguez on 07-10-2022 Calcium [Mass/Vol] 8.5 mg/dL 8.5-10.1 [facility] Serum or plasma creatinine m easurement (mass/volume)Ordered By: Dr. Dominguez on 07-10-2022 Creatinine [Mass/Vol] 1.12 mg/dL 0.55-1.02 [facility] Comment on above: The validity of the calculated GFR & GFRAA in patients over 70 years has not been determined. Clinical correlation is essential. Serum or plasma urea nitroge n measurement (mass/volume)Ordered By: Dr. Dominguez on 07-10-2022 Urea nitrogen [Mass/Vol] 17 mg/dL 7-18 [facility] Thin prep Papanicolaou smear with manual screeningOrdered By: Dr. Dominguez on 07-10-2022 Thin prep Papanicolaou smear with manual screening 23 U/L 15-37 [facility] Thin prep Papanicolaou smear with manual screening 6 5-15 [facility] CNPTOUTREACHon 10-05-2020 CNPTOUTREA Patient Outreach (CO OCC3) SHADIA TURNER ([id number]) 1940 F Date Time Provider Department 10/05/20 EMMETT DENNIS3 During your visit today, we recorded the following information about you: Allergies As of Date: 10/05/2020 Noted Allergy Reaction AUGMENTIN (AMOXICILLIN-POT CLAVUL*05/08/2018 8 - GI Upset Comments: Unable to tolerate due to GI side effects CHLORHEXIDINE 10/31/2018 2 - Rash LATEX 05/26/2009 2 - Rash Date Reviewed: 10/07/2018 Reviewed by: Ni Harris LPN - Fully Assessed Order(s):SARS-COVID VACCINE 1ST DOSE APPT [[id number]] Order #: [id number] FUTURE Prescriptions as of 10/05/2020 Sig: NEOMYCIN 500 MG TABLET Take 2 tablets by mouth four * Patient not taking: Reported on 10/31/2018 METRONIDAZOLE 500 MG TABLET Take 1 tablet by mouth three * Patient not taking: Reported on 10/31/2018 CIPROFLOXACIN 500 MG TABLET Take 500 mg by mouth twice da* PRILOSEC ORAL Take by mouth once daily. NEOMYCIN 500 MG TABLET Take 2 [...] tablet daily. Problem List As Of Date 10/05/2020 Noted Resolved Osteopenia [M85.80] 07/19/2010 Abdominal adhesions [K66.0] 02/27/2015 Letter Text Encounter Status:Closed by EPIC, PRODUSER on 10/08/20 Normal [facility] Vital Signs Date Time Vital Sign Value Performing Clinician Faci lity 04-01-2025 11:07-0400 Body temperature 98.4 [degF] Dr. Doroteo Dominguez MD Work Phone: [facility] 04-01-2025 11:07-0400 Diastolic blood pressure 89 mm[Hg] Dr. Doroteo Dominguez MD Work Phone: [facility] 04-01-2025 11:07-0400 Heart rate 67 /min Dr. Doroteo Dominguez MD Work Phone: [facility] 04-01-2025 11:07-0400 Respiratory rate 16 /min Dr. Doroteo Dominguez MD Work Phone: 6(145)014-638391 [place] [address] 04-01-2025 11:07-0400 SaO2% (BldA) [Mass fraction] 100 % Dr. Doroteo Dominguez MD Work Phone: 9(044)302-215027 [place] [address] 04-01-2025 11:07-0400 Systolic blood pressure 110 mm[Hg] Dr. Doroteo Dominguez MD Work Phone: 3(004)955-304727 [place] [address] 04-01-2025 09:13-0400 Body height 152.[address] Doroteo Dominguez MD Work Phone: 0(283)943-775227 [place] [address] 04-01-2025 09:13-0400 Body mass index (BMI) [Ratio] 25 kg/m2 Dr. Doroteo Dominguez MD Work Phone: 2(624)223-613527 [place] [address] 04-01-2025 09:13-0400 Body weight [address] Doroteo Dominguez MD Work Phone: 5(022)436-277927 [place] [address] 02-13-2025 11:00-0400 Body temperature 97.1 [degF] Dr. Doroteo Dominguez MD Work Phone: 9(591)531-353227 [place] [address] 02-13-2025 11:00-0400 Diastolic blood pressure 55 mm[Hg] Dr. Doroteo Dominguez MD Work Phone: 3(544)051-800427 [place] [address] 02-13-2025 11:00-0400 Heart rate 76 /min Dr. Doroteo Dominguez MD Work Phone: 9(356)386-384927 [place] [address] 02-13-2025 11:00-0400 Respiratory rate 16 /min Dr. Doroteo Dominguez MD Work Phone: 5(725)426-044527 [place] [address] 02-13-2025 11:00-0400 SaO2% (BldA) [Mass fraction] 96 % Dr. Doroteo Dominguez MD Work Phone: 4(692)417-421027 [place] [address] 02-13-2025 11:00-0400 Systolic blood pressure 143 mm[Hg] Dr. Doroteo Dominguez MD Work Phone: 5(080)938-880327 [place] [address] 11-02-2024 13:40-0500 Body temperature 98.7 [degF] Dr. Doroteo Dominguez MD Work Phone: 6(651)826-685727 [place] [address] 11-02-2024 13:40-0500 Diastolic blood pressure 62 mm[Hg] Dr. Doroteo Dominguez MD Work Phone: 4(745)004-290060 [place] [address] 11-02-2024 13:40-0500 Heart rate 63 /min Dr. Doroteo Dominguez MD Work Phone: 0(501)768-299196 [address] 11-02-2024 13:40-0500 SaO2% (BldA) [Mass fraction] 96 % Dr. Doroteo Dominguez MD Work Phone: 3(431)689-905496 [address] 11-02-2024 13:40-0500 Systolic blood pressure 110 mm[Hg] Dr. Doroteo Dominguez MD Work Phone: 2(060)277-554027 [place] [address] 08-22-2024 11:01-0500 Body height 152.[address] Doroteo Dominguez MD Work Phone: 9(052)933-532127 [place] [address] 08-22-2024 11:01-0500 Body mass index (BMI) [Ratio] 25.4 kg/m2 Dr. Doroteo Dominguez MD Work Phone: 3(265)564-891127 [place] [address] 08-22-2024 11:01-0500 Body temperature 98 [degF] Dr. Doroteo Dominguez MD Work Phone: 0(909)597-916927 [place] [address] 08-22-2024 11:01-0500 Body weight 58.[address] Doroteo Dominguez MD Work Phone: 2(381)026-746427 [place] [address] 08-22-2024 11:01-0500 Diastolic blood pressure 80 mm[Hg] Dr. Doroteo Dominguez MD Work Phone: 0(759)506-807596 [address] 08-22-2024 11:01-0500 Heart rate 73 /min Dr. Doroteo Dominguez MD Work Phone: 0(517)825-486427 [place] [address] 08-22-2024 11:01-0500 Respiratory rate 18 /min Dr. Doroteo Dominguez MD Work Phone: 1(000)165-972027 [place] [address] 08-22-2024 11:01-0500 SaO2% (BldA) [Mass fraction] 94 % Dr. Doroteo Dominguez MD Work Phone: 9(543)222-169660 [place] [address] 08-22-2024 11:01-0500 Systolic blood pressure 141 mm[Hg] Dr. Doroteo Dominguez MD Work Phone: [facility] 10-24-2022 20:14-0500 Respiratory rate 15 /min Dr. Doroteo Dominguez Work Phone: [facility] 10-24-2022 20:14-0500 SaO2% (BldA) [Mass fraction] 95 % Dr. Doroteo Dominguez Work Phone: [facility] 10-24-2022 18:05-0500 Body height 152.[address] Doroteo Dominguez Work Phone: [facility] 10-24-2022 18:05-0500 Body mass index (BMI) [Ratio] 26.2 kg/m2 Dr. Doroteo Dominguez Work Phone: [facility] 10-24-2022 18:05-0500 Body temperature 97.5 [degF] Dr. Doroteo Dominguez Work Phone: [facility] 10-24-2022 18:05-0500 Body weight [address] Doroteo Dominguez Work Phone: [facility] 10-24-2022 18:05-0500 Diastolic blood pressure 75 mm[Hg] Dr. Doroteo Dominguez Work Phone: [facility] 10-24-2022 18:05-0500 Heart rate 98 /min Dr. Doroteo Dominguez Work Phone: [facility] 10-24-2022 18:05-0500 Systolic blood pressure 122 mm[Hg] Dr. Doroteo Dominguez Work Phone: [facility] Encounters Encounter Date Encounter Type Care Provider Facility Start: 04-01-2025 Non-patient / Non-visit James Green nd, DO -[facility] Start: 04-01-2025 End: 04-01-2025 Admission to same day surgery center James Hwang DO -Endoscopy Work Phone: Start: 04-01-2025 End: 04-01-[address] Doroteo Dominguez MD Work Phone: -Endoscopy Start: 02-13-2025 End: 02-13-[address] Doroteo Dominguez MD -Medical Out Work Phone: Start: 02-13-2025 End: 02-13-[address] Doroteo Dominguez MD Work Phone: [facility] Work Phone: Start: 11-18-2024 End: 11-18-[address] Doroteo Dominguez MD Work Phone: [facility] Work Phone: Start: 11-18-2024 End: 11-18-[address] Doroteo Dominguez MD -Outpatient Bone Densitometry Work Phone: Start: 11-18-2024 End: 11-18-2024 ambulatory Doroteo Dominguez Facility:[facility] Start: 11-02-2024 End: 11-02-2024 Patient encounter procedure Krishna FORDE [facility] Work Phone: Start: 11-02-2024 End: 11-02-2024 ambulatory Doroteo Dominguez Facility:[facility] Start: 09-29-2024 End: 09-29-[address] Doroteo Dominguez MD -Laboratory, Specimen Work Phone: Start: 09-29-2024 End: 09-29-2024 ambulatory Doroteo Dominguez Facility:[facility] Start: 09-26-2024 End: 09-26-[address] Doroteo Dominguez MD -Laboratory, [facility] Start: 09-26-2024 End: 09-26-2024 ambulatory Doroteo Dominguez Facility:[facility] Start: 08-22-2024 End: 08-22-[address] Doroteo Dominguez MD -Medical Out Work Phone: Start: 08-22-2024 End: 08-22-2024 ambulatory Doroteo Dominguez Facility:[facility] Start: 07-10-2024 End: 07-10-2024 ambulatory Doroteo Dominguez Facility:[facility] Start: 08-03-2023 End: 08-03-2023 ambulatory [facility] Work Phone: Start: 08-03-2023 End: 08-03-2023 Patient encounter procedure [facility]-Outpatient Breast Imaging Work Phone: Start: 11-16-2022 End: 11-16-[address] Doroteo Dominguez Work Phone: [facility] Work Phone: Start: 11-16-2022 End: 11-16-[address] Doroteo Dominguez Work Phone: [facility]-Outpatient Bone Densitometry Start: 10-24-2022 End: 10-24-2022 Emergency department patient visit Dr. Doroteo Dominguez Work Phone: [facility]-Emergency Department Start: 09-21-2022 End: 09-21-[address] Doroteo Dominguez Work Phone: [facility] Work Phone: Start: 09-21-2022 End: 09-21-[address] Doroteo Dominguez Work Phone: [facility] Start: 07-26-2022 Non-patient / Non-visit Dr. Sy Dominguez Work Phone: [facility] Start: 07-26-2022 End: 07-26-[address] Doroteo Dominguez Work Phone: [facility]-Cardiovascular Services Start: 07-10-2022 End: 07-10-2022 ambulatory [facility] Work Phone: Start: 07-10-2022 End: 07-10-2022 Patient encounter procedure [facility]-Outpatient Bone Densitometry Procedures Date Procedure Procedure Detail Performing Clinician Start: 04-01-[address] Doroteo koo MD Work Phone: Start: 11-18-2024 Dual energy X-ray absorptiometry Dr. Doroteo Dominguez MD Work Phone: Start: 11-18-2024 Screening mammography D r. Doroteo Dominguez MD Work Phone: Start: 08-03-2023 Screening mammography Start: 10-24-2022 CT of abdomen and pe lvis without contrast Dr. Doroteo Dominguez Work Phone: Start: 09-21-[address] Doroteo koo Work Phone: Start: 09-21-2022 CT of head without contrast Dr. Doroteo Dominguez Work Phone: Start: 07-10-2022 Screening mammography Clostridium difficil e detection Dr. Doroteo Dominguez Work Phone: Enteric Bacteriology Dr. Georgia Dominguez Work Phone: Lactoferrin measurement Dr. Doroteo Dominguez Work Phone: Plan of Treatment Date Care Activity Detail Author Start: 04-01-2025 Patient discharge [facility] Start: 11-16-2022 Dual energy X-ray absorptiometry Dexa Bone Density Study [facility] Start: 10-24-2022 Enteric precautions [facility] Bilirubin measuremen t, urine [facility] C. difficile DNA Amplification C. difficile DNA Amplification [facility] Clostridioides diffi cile DNA [Presence] in Unspecified specimen by ROZ with probe detection [facility] Enteric Bacteriology Enteric Bacteriology [facility] Gastrointestinal pat [facility] panel - Stool by ROZ with probe detection [facility] Hemoglobin [Presence ] in Urine [facility] Measurement of keton es in urine using dipstick [facility] Microscopic urinalysis [facility] Ova and parasites identified in Unspecified specimen by Light microscopy [facility] Patient Education ED Abdominal P ain Unkn Cause Fem ED Diarrhea, Unknown Cause [facility] Work Phone: Patient referral [facility] Work Phone: pH of Urine [facility] Specific gravity of Urine [facility] Urinalysis, blood, qualitative [facility] Urine dipstick for glucose [facility] Urine dipstick for leukocyte esterase [facility] Urine dipstick for nitrite [facility] Urine dipstick for protein [facility] Urine examination [facility] Urine microscopy: epithelial cells [facility] Urine Microscopy: wh ite cells [facility] Urobilinogen [Presen ce] in Urine [facility] Immunizations Immunization Date Immunization Notes Care Provider Fa cility 10-21-2020 [facility] ([facility] 09-23-2020 Covid ([facility]) [facility] 05-22-2018 Influenza virus vaccine [facility] Payers Date Payer Category Payer Medicare [id number] 2024 Self-pay [id number] Medicare MEDICARE PART A B [id number] Medicare MEDICARE PART A B [id number] Unknown [id number] 2.16.8 [id number] Unknown [id number] 2.16.8 [id number] Unknown [id number] 2.16.8 [id number] Unknown [id number] 2.16.8 [id number] Unknown [id number] 2.16.8 [id number] Unknown [id number] 2.16.8 [id number] Unknown [id number] 2.16.8 [id number] Unknown [id number] 2.16.8 [id number] Unknown [id number] 2.16.8 [id number] Social History Date Type Detail Facility Start: 03-19-2021 End: 10-24-2022 Tobacco smoking status NHIS Unknown if ever smoked [facility] Start: 08-19-2018 Non-smoker [facility] Start: 1940 Sex Assigned At Female [facility] Start: 11-27-2014 None [facility] Start: 11-27-2014 Spouse/ Signif icant Other [facility] Start: 10-24-2022 End: 03-27-2025 Tobacco smoking status NHIS Never smoked tobacco (finding) [facility] Start: 11-26-2024 Sex Female (finding) [facility] Medical Equipment Procedure Code Equipment Code Equipment Original Text Equipment Identifier Dates Laparoscopic-assisted sigmoidectomy CLIP,LIN MACDONALD FDA Start: 10-23-2018 Laparoscopic-assisted sigmoidectomy CLIP,HEMCORNELIO MACDONALD FDA Start: 10-23-2018 Laparoscopic-assisted sigmoidectomy CLIP,HEMCORNELIO MACDONALD FDA Start: 10-23-2018 Laparoscopic-assisted sigmoidectomy RELOAD,GOLD 60 FDA Start: 10-23-2018 Laparoscopic-assisted sigmoidectomy RELOAD,GOLD 60 FDA Start: 10-23-2018 Laparoscopic-assisted sigmoidectomy STAPLER,INTRA CDH29A ETHICON FDA Start: 10-23-2018 Laparoscopic-assisted sigmoidectomy CLIP,LIN MACDONALD FDA Start: 10-23-2018 Laparoscopic-assisted sigmoidectomy CLIP,HEMCORNELIO MACDONALD FDA Start: 10-23-2018 Laparoscopic-assisted sigmoidectomy CLIP,HEMCORNELIO MED TORRES FDA Start: 10-23-2018 Laparoscopic-assisted sigmoidectomy RELOAD,GOLD 60 FDA Start: 10-23-2018 Laparoscopic-assisted sigmoidectomy RELOAD,GOLD 60 FDA Start: 10-23-2018 Laparoscopic-assisted sigmoidectomy STAPLER,INTRA CDH29A ETHICON FDA Start: 10-23-2018 Laparoscopic-assisted sigmoidectomy CLIP,HEMCORNELIO MACDONALD FDA Start: 10-23-2018 Laparoscopic-assisted sigmoidectomy CLIP,HEMCORNELIO MACDONALD FDA Start: 10-23-2018 Laparoscopic-assisted sigmoidectomy CLIP,HEMOLODALJIT MED TORRES FDA Start: 10-23-2018 Laparoscopic-assisted sigmoidectomy RELOAD,GOLD 60 FDA Start: 10-23-2018 Laparoscopic-assisted sigmoidectomy RELOAD,GOLD 60 FDA Start: 10-23-2018 Laparoscopic-assisted sigmoidectomy STAPLER,INTRA CDH29A ETHICON FDA Start: 10-23-2018 Laparoscopic-assisted sigmoidectomy CLIP,HEMOLODALJIT LG WECK FDA Start: 10-23-2018 Laparoscopic-assisted sigmoidectomy CLIP,HEMOLODALJIT MED WECK FDA Start: 10-23-2018 Laparoscopic-assisted sigmoidectomy CLIP,HEMOLOCK MED WECK FDA Start: 10-23-2018 Laparoscopic-assisted sigmoidectomy RELOAD,GOLD 60 FDA Start: 10-23-2018 Laparoscopic-assisted sigmoidectomy RELOAD,GOLD 60 FDA Start: 10-23-2018 Laparoscopic-assisted sigmoidectomy STAPLER,INTRA CDH29A ETHICON FDA Start: 10-23-2018 Laparoscopic-assisted sigmoidectomy CLIP,HEMRODDYDALJIT LG WEDALJIT FDA Start: 10-23-2018 Laparoscopic-assisted sigmoidectomy CLIP,HEMRODDYDALJIT MED WECK FDA Start: 10-23-2018 Laparoscopic-assisted sigmoidectomy CLIP,HEMOLOCK MED WECK FDA Start: 10-23-2018 Laparoscopic-assisted sigmoidectomy RELOAD,GOLD 60 FDA Start: 10-23-2018 Laparoscopic-assisted sigmoidectomy RELOAD,GOLD 60 FDA Start: 10-23-2018 Laparoscopic-assisted sigmoidectomy STAPLER,INTRA CDH29A ETHICON FDA Start: 10-23-2018 Laparoscopic-assisted sigmoidectomy CLIP,HEMRODDYDALJIT LG WECK FDA Start: 10-23-2018 Laparoscopic-assisted sigmoidectomy CLIP,HEMRODDYDALJIT MED WEDALJIT FDA Start: 10-23-2018 Laparoscopic-assisted sigmoidectomy CLIP,HEMOLOCK MED WECK FDA Start: 10-23-2018 Laparoscopic-assisted sigmoidectomy RELOAD,GOLD 60 FDA Start: 10-23-2018 Laparoscopic-assisted sigmoidectomy RELOAD,GOLD 60 FDA Start: 10-23-2018 Laparoscopic-assisted sigmoidectomy STAPLER,INTRA CDH29A ETHICON FDA Start: 10-23-2018 Laparoscopic-assisted sigmoidectomy CLIP,HEMRODDYDALJIT LG WECK FDA Start: 10-23-2018 Laparoscopic-assisted sigmoidectomy CLIP,HEMOLODALJIT MED WECK FDA Start: 10-23-2018 Laparoscopic-assisted sigmoidectomy CLIP,HEMOLOCK MED WECK FDA Start: 10-23-2018 Laparoscopic-assisted sigmoidectomy RELOAD,GOLD 60 FDA Start: 10-23-2018 Laparoscopic-assisted sigmoidectomy RELOAD,GOLD 60 FDA Start: 10-23-2018 Laparoscopic-assisted sigmoidectomy STAPLER,INTRA CDH29A ETHICON FDA Start: 10-23-2018 Laparoscopic-assisted sigmoidectomy CLIP,HEMOLODALJIT LG TORRES FDA Start: 10-23-2018 Laparoscopic-assisted sigmoidectomy CLIP,HEMOLOCK SHARLENE WECK FDA Start: 10-23-2018 Laparoscopic-assisted sigmoidectomy CLIP,HEMOLOCK MED WECK FDA Start: 10-23-2018 Laparoscopic-assisted sigmoidectomy RELOAD,GOLD 60 FDA Start: 10-23-2018 Laparoscopic-assisted sigmoidectomy RELOAD,GOLD 60 FDA Start: 10-23-2018 Laparoscopic-assisted sigmoidectomy STAPLER,INTRA CDH29A ETHICON FDA Start: 10-23-2018 Goals Date Patient Goal Desired Activity /State Mental Status Date Assessment Result Facility 04-01-2025 Cognitive function Voice/Name [facility] Work Phone: 02-13-2025 Cognitive function Awake;Alert;A ppropriate;Fol lows Commands [facility] Work Phone: 08-22-2024 Cognitive function Voice/Name [facility] Work Phone: Clinical Notes 10-24-2022 to 04-01-2025 Note Date & Type Note Facility 04-01-2025 Consult note Note Date/Time April 01, 2025 9:20am [facility] Medical Records Department [address] [place] [address] Pre-Anesthesia Evaluation 04/01/25 0917 MR#: [id number] Acct: [id number] Name: SHADIA TURNER Rep #:[id number] : 1940 84 From: Craig Salinas PCP: Dr. Doroteo Dominguez MD Status:REG [facility] Y Race: C Location: [place] [address] ASA Classification* ASA Classification ASA Classification: 2 Assessment & Plan Anesthesia* Anesthesia Assessment Anesthesia Assessment: Discussed sedation and/or anesthesia options, risks, benefits, and alternatives with patient/parents/legal guardian/POA. Questions invited. The patient/parents/legal guardian/POA seems to understand and agrees to proceedwith anesthesia plan. Reviewed the physical assessment, medical history, allergy history and patient home medications list prior to surgery/procedure/anesthetic and documented any changes. Performed airway and anesthesia risk assessments. Anesthesia Type Anesthesia Type: MAC History Source History Obtained from:: Patient Anesthesia Focused Assessment* Temperature: 97.7 F Pulse Rate: 84 Blood Pressure: 116/66 Respiratory Rate: 17 Pulse Ox: 100 Oxygen Delivery Method: Room Air Airway Assessment Mouth opens: >3 cm Mallampati Score: II Teeth Condition: Lower and Partial Neck Range of motion (ROM): Limited ROM Labs Anesthesia Preop lab: CBC WBC 6.0 K/mm3 (4.4-11.0) 01/17/24 08:01/17/24 RBC 5.06 M/mm3 (4.2-5.4) 01/17/24 08:01/17/24 Hgb 14.8 g/dL (12.0-15.0) 01/17/24 08:01/17/24 Hct 45.9 % (37-47) 01/17/24 08:01/17/24 Plt Count 212 K/mm3 (150-450) 01/17/24 08:19 01/17/24 CHEMISTRY Potassium 3.9 mmol/L (3.5-5.1) 09/26/24 08:29 09/26/24 Sodium 141 mmol/L (136-145) 09/26/24 08:29 09/26/24 Magnesium 1.5 mg/dL (1.8-2.4) L 11/27/14 08:34 11/27/14 BUN 17 mg/dL (7-18) 09/26/24 08:29 09/26/24 Creatinine 1.08 mg/dL (0.55-1.02) H 09/26/24 08:29 Glucose 94 mg/dL (74-106) 09/26/24 08:29 09/26/24 POC Glucose 97 mg/dL (70-110) 10/23/18 06:16 10/23/18 TSH 4.190 uIU/mL (0.358-3.740) H 07/10/24 14:36 COAG PT 15.9 SECONDS (11.7-14.9) H 11/27/14 08:34 0303/17 Pre-Assessment Diagnosis/Proposed Procedure Planned Operative Procedure(s): COLONOSCOPY Anesthesia History Anesthesia History - broomcorn thresher: Anesthesia History - broomcorn thresher Hx Hospitalization No 03/27/25 10:21 Any Problems With Anesthesia No 03/27/25 10:21 Cholinesterase deficiency No 03/27/25 10:21 You/Your Family Experience No 03/27/25 10:21 fever (hyperthermia) with Relationship Recent Exposure to Contagious No 04/01/25 09:13 Disease Does patient have nerve No 03/27/25 10:21 stimulator Patient instructed to have device shut off --Does patient have Pacemaker No 04/01/25 09:13 or ICD? When Was Last Pacemaker Check QUESTION #4 FULL TEXT: You/Your Family Experience fever (hyperthermia) with Anesthesia Last Oral Intake Last Oral intake: Last Oral Intake NPO since 05:30 04/01/25 09:13 Meds taken in AM with sips of Yes 04/01/25 09:13 water? Meds patient instructed to prep 04/01/25 09:13 take am of surgery PONV PONV - broomcorn thresher: PONV - broomcorn thresher Female Yes 03/27/25 10:21 HX of Motion Sickness No 03/27/25 10:21 HX of N/V After Surgery No 03/27/25 10:21 Non-Smoker Yes 03/27/25 10:21 Duration of Surgery greater No 03/27/25 10:21 than 60 minutes Number of Risk Factors 2 03/27/25 10:21 PONV Score Moderate Risk 03/27/25 10:21 Height & Weight Height & Weight: Anesthesia: Height & Weight Height 5 ft 04/01/25 09:13 Weight: 58 kg 04/01/25 09:13 Body Mass Index (BMI) 25.0 04/01/25 09:13 Respiratory Assessment Respiratory Assessment - broomcorn thresher: Respiratory Tract Infection Hx - broomcorn thresher Hx Respiratory Tract Infection No 03/27/25 10:21 STOP Sleep Apnea STOP Sleep Apnea - broomcorn thresher: STOP Sleep Apnea - broomcorn thresher Hx Hypertension No 03/27/25 10:21 Hx Sleep Apnea No 03/27/25 10:21 CPAP No 10/23/18 11:52 BIPAP No 08/23/18 02:19 Do you snore loudly (louder No 03/27/25 10:21 than talking or can be heard Do you often feel tired/ No 03/27/25 10:21 fatigued/ sleepy during daytime? Has anyone observed you stop No 03/27/25 10:21 breathing during sleep? STOP Results Negative 03/27/25 10:21 QUESTION #5 FULL TEXT : Do you snore loudly (louder than talking or can be heard through closed doors)? 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 Specify any problems Hx of Preganancy in last 3 No 03/27/25 10:21 Months Nurse Filling Out Transfusion [email or web address] 03/27/25 10:21 & Questions: Date: 03/27/25 03/27/25 10:21 Time: 10:23 03/27/25 10:21 Patient unable to answer at this time (ie. confused, unrespo /Reproduction History /Reproductive History - broomcorn thresher: /Reproductive Hx- broomcorn thresher Hx Now Gestational Age (in weeks): EDC: Hx Hx Para Hx Section SAB Active Medications Active Medications: Current Medications Generic Name Dose Route Start Last Admin Trade Name Freq PRN Reason Stop Dose Admin Lactated Ringer's 1,000 mls @ 15 mls/hr 04/01/25 09:00 04/01/25 09:13 IV 15 mls/hr .Q48H MORAIMA Administration PFSH Medical History Wears hearing aid Loss of hearing Wears partial dentures Wears glasses History of steroid therapy Osteoporosis Non-smoker History of echocardiogram Colonoscopy planned Hyperlipidemia bunion surgery Home Medications ?Medication ?Instructions ?Recorded ?Last Taken ?Type multivitamin (Multiple Vitamins 1 tab PO DAILY 0 03/31/25 History tablet) meclizine 25 mg tablet 25 mg PO TID PRN dizziness 0 02/20/24 Unknown History cholecalciferol (vitamin D3) 50 50 mcg PO DAILY 03/31/25 History mcg (2,000 unit) capsule (D3-2000) lysine 500 mg tablet (L-Lysine) 500 mg PO DAILY 03/31/25 History Allergy/AdvReac Type Severity Reaction Status Date / Time Iodine and Iodide Containing Allergy Rash Verified 04/01/25 09:12 Produc latex Allergy Rash Verified 04/01/25 09:12 adhesive AdvReac Rash Verified 04/01/25 09:12 amoxicillin (From Augmentin) AdvReac Diarrhea Verified 04/01/25 09:12 clavulanic acid (From AdvReac Diarrhea Verified 04/01/25 09:12 Augmentin) Family History Mother Hypertension Surgical History H/O colectomy History of surgical removal of intestinal structure H/O removal of cyst Hx of removal of ovary Social History household members: spouse housing: house Smoking Status: Never smoker alcohol intake: never substance use type: does not use what type of physical activity do you participate in: swimming and aerobics frequency: 3-4 times per week seatbelt use: always do you feel safe at home: Yes Review of Systems (Anesthesia) ROS Narrative System reviewed and no additional complaints, except as documented. 04/01/25919 <Electronically signed by Craig Burdick MD> Date _ Craig Ni Signature: Date CC: ~ Signed [facility] Work Phone: 1(149) 492-618507-30-2025 Consult note [facility] Medical Records Department [address] [place] [address] Anesthesia Postop Eval II 04/01/25 1114 MR#: [id number] Acct: [id number] Name: SHADIA TURNER Rep #:[id number] : 1940 84 From: Craig Salinas PCP: Dr. Doroteo Dominguez MD Status:REG SDC Y Race: C Location: [place] [address]- Anesthesia Postop Eval I Sum Postop Eval Completion status Anesthesia document: Postop Eval 1 completed: Yes Anesthesia Postop Eval I Summary Anesthesia Postop Eval I Summary: Anesthesia Postop Eval I: Assessment Summary Airway patent Yes 04/01/25 11:01 [email or web address] Spontaneous unlabored Yes 04/01/25 11:01 [email or web address] respirations Mental status Asleep 04/01/25 11:01 [email or web address] nausea No 04/01/25 11:01 [email or web address] Vomiting No 04/01/25 11:01 [email or web address] Anesthesia Postop Eval I: Fluid Summary Crystalloid volume administer 400 04/01/25 11:01 [email or web address] (ml) Colloids volume administered ( ml) Blood Product volume administered (ml) Total IV fluid infused 400 04/01/25 11:01 [email or web address] Anesthesia Postop Eval I: Summary Notes Anesthesia Complication No 04/01/25 11:01 [email or web address] Anesthesia Complication Comment: Post-operative progress note Anesthesia: Postop Eval II Evaluation Mental status: Awake and Calm Pain Level: 0 nausea: No Vomiting: No Progress Note Post-operative progress note: Tolerated well Complications Anesthesia Complication: No 04/01/25 1116 > Date _ Craig Bachignsy Signature: Date CC: ~ Signed [facility]07-30-2025 History and physical note Author James Hwang [facility] Note Date/Time April 01, 2025 9:03 am [facility] Medical Records Department [address] [place] [address] History & Physical Exam 04/01/25900 MR#: [id number] Acct: [id number] Name: SHADIA TURENR Rep #:[id number] : 1940 84 From: James Hwang DO PCP: Dr. Doroteo Dominguez MD Status:[facility] Location: [place] [address] HPI - General General Date of Admission: 04/01/25 Date of Service: 04/01/25 Chief Complaint: Screening colonoscopy HPI Narrative SHADIA TURNER, is a 84 F who presents for screening colonoscopy. 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 She tolerated prep without any problems. She denies any abdominal pain. She does admit to occasional constipation. [facility] Medical History Wears hearing aid Loss of hearing Wears partial dentures Wears glasses History of steroid therapy Osteoporosis Non-smoker History of echocardiogram Colonoscopy planned Hyperlipidemia bunion surgery Home Medications ?Medication ?Instructions ?Recorded ?Last Taken ?Type multivitamin (Multiple Vitamins 1 tab PO DAILY 0 Unknown History tablet) meclizine 25 mg tablet 25 mg PO TID PRN dizziness 0 02/20/24 Unknown History cholecalciferol (vitamin D3) 50 50 mcg PO DAILY Unknown History mcg (2,000 unit) capsule (D3-2000) lysine 500 mg tablet (L-Lysine) 500 mg PO DAILY Unknown History Allergy/AdvReac Type Severity Reaction Status Date / Time Iodine and Iodide Containing Allergy Rash Verified 03/27/25 10:18 Produc latex Allergy Rash Verified 03/27/25 10:18 adhesive AdvReac Rash Verified 03/27/25 10:18 amoxicillin (From Augmentin) AdvReac Diarrhea Verified 03/27/25 10:18 clavulanic acid (From AdvReac Diarrhea Verified 03/27/25 10:18 Augmentin) Family History Mother Hypertension Surgical History H/O colectomy History of surgical removal of intestinal structure H/O removal of cyst Hx of removal of ovary Social History household members: spouse housing: house Smoking Status: Never smoker alcohol intake: never substance use type: does not use what type of physical activity do you participate in: swimming and aerobics frequency: 3-4 times per week seatbelt use: always do you feel safe at home: Yes ROS Constitutional Constitutional: Denies fatigue, fever(s), poor appetite, weight gain or weight loss Gastrointestinal Gastrointestinal: Denies belching, bloating, change in bowel habits, change in stool character, chewing difficulty, coffee ground emesis, constipation, cramping, diarrhea, dyspepsia, dysphagia, early satiety, excessive flatus, fecalincontinence, heartburn, hematemesis, hematochezia, hemorrhoids, loose stools, melena, nausea, odynophagia, rectal bleeding, tenesmus, vomiting or weight changes Physical Exam Const alert, oriented x3, no apparent distress and healthy appearing General Appearance: cooperative GI normal to inspection, nondistended, normoactive bowel sounds, soft to palpation,non-tender and non-distended Percussion: normal to percussion Rectal Exam: deferred Assessment & Plan Assessment/Plan (1) Encounter for screening colonoscopy: PLAN: She was explained alternatives, benefits, risk include not withstanding bleeding, infection, sepsis, perforation, need for brain surgery . She will have an ASA of 3. 04/01/25 0903 <Electronically signed by James Hwang DO> Cosigner Signature (if applicable): CC: Dr. Doroteo Dominguez MD; James Hwang DO~ Signed [facility] Work Phone: 1(524) 162-513607-30-2025 Consult note [facility] Medical Records Department [address] [place] [address] Anesthesia Postop Eval I 04/01/25 1100 MR#: [id number] Acct: [id number] Name: SHAMIKA,SHADIAAnn MCFARLAND Rep #:[id number] : 1940 84 From: Ryan Andujar PCP: Dr. Doroteo Dominguez MD Status:REG SDC Y Race: C Location: [place] [address] Anesthesia: Postop Eval I Current Vital Signs Temperature: 97.9 F Pulse Rate: 71 Blood Pressure: 86/50 Respiratory Rate: 16 Pulse Ox: 96 Oxygen Delivery Method: Room Air Assessment Airway patent: Yes Spontaneous unlabored respirations: Yes Mental status: Asleep nausea: No Vomiting: No Anesthesia Complication: No Fluid Hydration Crystalloid volume administer (ml): 400 Total IV fluid infused: 400 Progress Note Anesthesia document: Postop Eval 1 completed: Yes 04/01/25 1101 > Date _ Ryan Andujar Cosigner Signature: Date CC: ~ Signed [facility]07-30-2025 Procedure note [facility] Medical Records Department [address] [place] [address] Colonoscopy Report MR#: [id number] Acct: [id number] Name: SHADIA TURNER Rep #:[id number] : 1940 84 From: James Hwang DO PCP: Dr. Doroteo Dominguez MD Status:REG [facility] Patient Name: Shadia Turner Procedure Date: 04/01/2025 10:19 AM Date of : 1940 Age: 84 Procedure: Colonoscopy Indications: Screening for colorectal malignant neoplasm Providers: James Hwang DO Referring MD: Doroteo Dominguez Medicines: Monitored Anesthesia Care Patient Profile: This is an 84 year old female. Refer to note in patient chart for documentation of history and physical. Last Colonoscopy: several years ago. Complications: No immediate complications. Procedure: Pre-Anesthesia Assessment: [...] and proposed procedure were verified by the physician in the pre-procedure area. Mental Status Examination: alert and oriented. Airway Examination: normal oropharyngeal airway and neck mobility. Respiratory Examination: clear to auscultation. CV Examination: normal. Prophylactic Antibiotics: The patient does not require prophylactic antibiotics. Prior Anticoagulants: The patient has taken no anticoagulant or antiplatelet agents except for NSAID medication. ASA Grade Assessment: II - A patient [...] and advanced to the cecum, identified by appendiceal orifice and ileocecal valve. The colonoscopy was performed without difficulty. The patient tolerated the procedure well. The quality of the bowel preparation was adequate. The ileocecal valve, appendiceal orifice, and rectum were photographed. Scope In: 10:32:51 AM Scope Withdrawal Time 0 hours 8 minutes 11 seconds Scope Out: 10:45:35 AM Total Procedure Duration Time 0 hours 12 minutes 44 seconds Findings: The perianal and digital rectal examinations were normal. Multiple small and large-mouthed diverticula were found in the recto-sigmoid colon and sigmoid colon. A 5 mm polyp was found in the ascending colon. The polyp was sessile. The polyp was removed with a cold biopsy forceps. Resection and retrieval were complete. Verification of patient identification for the specimen was done. Estimated blood loss was minimal. Impression: - Diverticulosis in the recto-sigmoid colon and in the sigmoid colon. - One 5 mm polyp in the ascending colon, removed with a cold snare. Resected and retrieved. Recommendation: - Discharge patient to home. - Resume previous diet. - Continue present medications. - Await pathology results. - No repeat colonoscopy due to age. Procedure Code(s): --- Professional --- 34027, Colonoscopy, flexible; with biopsy, single or multiple CPT copyright 2021 [employer]. All rights reserved. The codes documented in this report are preliminary and upon box toe stitcher review may be revised to meet current compliance requirements. James Hwang DO 04/01/2025 10:56:10 AM This report has been signed electronically. Number of Addenda: 0 Note Initiated On: 04/01/2025 10:19 AM 04/01/25 1056 Date _ James Hwang DO Cosigner Signature: Date (if indicated) CC: Dr. Doroteo Dominguez MD; James Hwang DO ~ Date Dictated: 04/01/25 1019 Date Transcribed: Unit Assistant: RF Signed [facility]07-30-2025 Procedure note [facility] Medical Records Department [address] [place] [address] Provation Physician Letter MR#: [id number] Acct: [id number] Name: SHADIA TURNER Rep #:[id number] : 1940 84 From: James Hwang DO PCP: Dr. Doroteo Dominguez MD Status:REG [facility] 04/01/2025 Doroteo Dominguez [address] [place] [address] Re : Colonoscopy procedure for Shadia Turner Dear Dr. Dominguez This procedure was performed on Sunday, April 01, 2025. My impressions and recommendations are as follows: Impressions : - Diverticulosis in the recto-sigmoid colon and in the sigmoid colon. - One 5 mm polyp in the ascending colon, removed with a cold snare. Resected and retrieved. Recommendations : - Discharge patient to home. - Resume previous diet. - Continue present medications. - Await pathology results. - No repeat colonoscopy due to age. My findings are described in the full procedure note, which is enclosed. If I can be of further assistance, please feel free to contact me at . Sincerely, James Hwang 04/01/2025 10:56:10 AM This report has been signed electronically. 04/01/25 1056 Date _ James Hwang DO Cosigner Signature: Date (if indicated) CC: Dr. Doroteo Dominguez MD; James DO Jaiden ~ Date Dictated: 04/01/25 1019 Date Transcribed: Unit Assistant: RF Signed [facility]07-30-2025 Evaluation note* Diagnosis Onset Date Resolution Status Admit Date Encounter for screening colonoscopy acute April 01, 2025 8:46am [facility] Work Phone: [phone]) 109-379707-30-2025 Consult note [facility] Medical Records Department [address] [place] [address] Pre-Anesthesia Evaluation 04/01/25916 MR#: [id number] Acct: [id number] Name: SHADIA TURNER Rep #:[id number] : 1940 84 From: Craig Salinas PCP: Dr. Doroteo Dominguez MD Status:REG [facility] Y Race: C Location: [place] [address] ASA Classification* ASA Classification ASA Classification: 2 Assessment & Plan Anesthesia* Anesthesia Assessment Anesthesia Assessment: Discussed sedation and/or anesthesia options, risks, benefits, and alternatives with patient/parents/legal guardian/POA. Questions invited. The patient/parents/legal guardian/POA seems to understand and agrees to proceedwith anesthesia plan. Reviewed the physical assessment, medical history, allergy history and patient home medications list prior to surgery/procedure/anesthetic and documented any changes. Performed airway and anesthesia risk assessments. Anesthesia Type Anesthesia Type: MAC History Source History Obtained from:: Patient Anesthesia Focused Assessment* Temperature: 97.7 F Pulse Rate: 84 Blood Pressure: 116/66 Respiratory Rate: 17 Pulse Ox: 100 Oxygen Delivery Method: Room Air Airway Assessment Mouth opens: >3 cm Mallampati Score: II Teeth Condition: Lower and Partial Neck Range of motion (ROM): Limited ROM Labs Anesthesia Preop lab: CBC WBC 6.0 K/mm3 (4.4-11.0) 01/17/24 08:01/17/24 RBC 5.06 M/mm3 (4.2-5.4) 01/17/24 08:01/17/24 Hgb 14.8 g/dL (12.0-15.0) 01/17/24 08:01/17/24 Hct 45.9 % (37-47) 01/17/24 08:19 01/17/24 Plt Count 212 K/mm3 (150-450) 01/17/24 08:19 01/17/24 CHEMISTRY Potassium 3.9 mmol/L (3.5-5.1) 09/26/24 08:29 09/26/24 Sodium 141 mmol/L (136-145) 09/26/24 08:29 09/26/24 Magnesium 1.5 mg/dL (1.8-2.4) L 11/27/14 08:34 11/27/14 BUN 17 mg/dL (7-18) 09/26/24 08:29 09/26/24 Creatinine 1.08 mg/dL (0.55-1.02) H 09/26/24 08:29 Glucose 94 mg/dL (74-106) 09/26/24 08:29 09/26/24 POC Glucose 97 mg/dL (70-110) 10/23/18 06:16 10/23/18 TSH 4.190 uIU/mL (0.358-3.740) H 07/10/24 14:36 COAG PT 15.9 SECONDS (11.7-14.9) H 11/27/14 08:34 0303/17 Pre-Assessment Diagnosis/Proposed Procedure Planned Operative Procedure(s): COLONOSCOPY Anesthesia History Anesthesia History - broomcorn thresher: Anesthesia History - broomcorn thresher Hx Hospitalization No 03/27/25 10:21 Any Problems With Anesthesia No 03/27/25 10:21 Cholinesterase deficiency No 03/27/25 10:21 You/Your Family Experience No 03/27/25 10:21 fever (hyperthermia) with Relationship Recent Exposure to Contagious No 04/01/25 09:13 Disease Does patient have nerve No 03/27/25 10:21 stimulator Patient instructed to have device shut off --Does patient have Pacemaker No 04/01/25 09:13 or ICD? When Was Last Pacemaker Check QUESTION #4 FULL TEXT: You/Your Family Experience fever (hyperthermia) with Anesthesia Last Oral Intake Last Oral intake: Last Oral Intake NPO since 05:30 04/01/25 09:13 Meds taken in AM with sips of Yes 04/01/25 09:13 water? Meds patient instructed to prep 04/01/25 09:13 take am of surgery PONV PONV - broomcorn thresher: PONV - broomcorn thresher Female Yes 03/27/25 10:21 HX of Motion Sickness No 03/27/25 10:21 HX of N/V After Surgery No 03/27/25 10:21 Non-Smoker Yes 03/27/25 10:21 Duration of Surgery greater No 03/27/25 10:21 than 60 minutes Number of Risk Factors 2 03/27/25 10:21 PONV Score Moderate Risk 03/27/25 10:21 Height & Weight Height & Weight: Anesthesia: Height & Weight Height 5 ft 04/01/25 09:13 Weight: 58 kg 04/01/25 09:13 Body Mass Index (BMI) 25.0 04/01/25 09:13 Respiratory Assessment Respiratory Assessment - broomcorn thresher: Respiratory Tract Infection Hx - broomcorn thresher Hx Respiratory Tract Infection No 03/27/25 10:21 STOP Sleep Apnea STOP Sleep Apnea - broomcorn thresher: STOP Sleep Apnea - broomcorn thresher Hx Hypertension No 03/27/25 10:21 Hx Sleep Apnea No 03/27/25 10:21 CPAP No 10/23/18 11:52 BIPAP No 08/23/18 02:19 Do you snore loudly (louder No 03/27/25 10:21 than talking or can be heard Do you often feel tired/ No 03/27/25 10:21 fatigued/ sleepy during daytime? Has anyone observed you stop No 03/27/25 10:21 breathing during sleep? STOP Results Negative 03/27/25 10:21 QUESTION #5 FULL TEXT : Do you snore loudly (louder than talking or can be heard through closeddoors)? 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 Specify any problems Hx of Preganancy in last 3 No 03/27/25 10:21 Months Nurse Filling Out Transfusion [email or web address] 03/27/25 10:21 & Questions: Date: 03/27/25 03/27/25 10:21 Time: 10:23 03/27/25 10:21 Patient unable to answer at this time (ie. confused, unrespo /Reproduction History /Reproductive History - broomcorn thresher: /Reproductive Hx- broomcorn thresher Hx Now Gestational Age (in weeks): EDC: Hx Hx Para Hx Section SAB Active Medications Active Medications: Current Medications Generic Name Dose Route Start Last Admin Trade Name Maye PRN Reason Stop Dose Admin Lactated Ringer's 1,000 mls @ 15 mls/hr 04/01/25 09:00 04/01/25 09:13 IV 15 mls/hr .Q48H MORAIMA Administration PFSH Medical History Wears hearing aid Loss of hearing Wears partial dentures Wears glasses History of steroid therapy Osteoporosis Non-smoker History of echocardiogram Colonoscopy planned Hyperlipidemia bunion surgery Home Medications ?Medication ?Instructions ?Recorded ?Last Taken ?Type multivitamin (Multiple Vitamins 1 tab PO DAILY 0 03/31/25 History tablet) meclizine 25 mg tablet 25 mg PO TID PRN dizziness 0 02/20/24 Unknown History cholecalciferol (vitamin D3) 50 50 mcg PO DAILY 03/31/25 History mcg (2,000 unit) capsule (D3-2000) lysine 500 mg tablet (L-Lysine) 500 mg PO DAILY 03/31/25 History Allergy/AdvReac Type Severity Reaction Status Date / Time Iodine and Iodide Containing Allergy Rash Verified 04/01/25 09:12 Produc latex Allergy Rash Verified 04/01/25 09:12 adhesive AdvReac Rash Verified 04/01/25 09:12 amoxicillin (From Augmentin) AdvReac Diarrhea Verified 04/01/25 09:12 clavulanic acid (From AdvReac Diarrhea Verified 04/01/25 09:12 Augmentin) Family History Mother Hypertension Surgical History H/O colectomy History of surgical removal of intestinal structure H/O removal of cyst Hx of removal of ovary Social History household members: spouse housing: house Smoking Status: Never smoker alcohol intake: never substance use type: does not use what type of physical activity do you participate in: swimming and aerobics frequency: 3-4 times per week seatbelt use: always do you feel safe at home: Yes Review of Systems (Anesthesia) ROS Narrative System reviewed and no additional complaints, except as documented. 04/01/25919 > Date _ Craig Can Signature: Date CC: ~ Signed [facility]07-30-2025 History and physical note [facility] Medical Records Department [address] [place] [address] History & Physical Exam 04/01/25 09 MR#: [id number] Acct: [id number] Name: SHADIA TURNER Rep #:[id number] : 1940 84 From: James Hwang DO PCP: Dr. Doroteo Dominguez MD Status:[facility] Location: [place] [address] HPI - General General Date of Admission: 04/01/25 Date of Service: 04/01/25 Chief Complaint: Screening colonoscopy HPI Narrative SHADIA TURNER, is a 84 F who presents for screening colonoscopy. 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 She tolerated prep without any problems. She denies any abdominal pain. She does admit tooccasional constipation. [facility] Medical History Wears hearing aid Loss of hearing Wears partial dentures Wears glasses History of steroid therapy Osteoporosis Non-smoker History of echocardiogram Colonoscopy planned Hyperlipidemia bunion surgery Home Medications ?Medication ?Instructions ?Recorded ?Last Taken ?Type multivitamin (Multiple Vitamins 1 tab PO DAILY 0 Unknown History tablet) meclizine 25 mg tablet 25 mg PO TID PRN dizziness 0 02/20/24 Unknown History cholecalciferol (vitamin D3) 50 50 mcg PO DAILY Unknown History mcg (2,000 unit) capsule (D3-2000) lysine 500 mg tablet (L-Lysine) 500 mg PO DAILY Unknown History Allergy/AdvReac Type Severity Reaction Status Date / Time Iodine and Iodide Containing Allergy Rash Verified 03/27/25 10:18 Produc latex Allergy Rash Verified 03/27/25 10:18 adhesive AdvReac Rash Verified 03/27/25 10:18 amoxicillin (From Augmentin) AdvReac Diarrhea Verified 03/27/25 10:18 clavulanic acid (From AdvReac Diarrhea Verified 03/27/25 10:18 Augmentin) Family History Mother Hypertension Surgical History H/O colectomy History of surgical removal of intestinal structure H/O removal of cyst Hx of removal of ovary Social History household members: spouse housing: house Smoking Status: Never smoker alcohol intake: never substance use type: does not use what type of physical activity do you participate in: swimming and aerobics frequency: 3-4 times per week seatbelt use: always do you feel safe at home: Yes ROS Constitutional Constitutional: Denies fatigue, fever(s), poor appetite, weight gain or weight loss Gastrointestinal Gastrointestinal: Denies belching, bloating, change in bowel habits, change in stool character, chewing difficulty, coffee ground emesis, constipation, cramping, diarrhea, dyspepsia, dysphagia, earlysatiety, excessive flatus, fecalincontinence, heartburn, hematemesis, hematochezia, hemorrhoids, loose stools, melena, nausea, odynophagia, rectal bleeding, tenesmus, vomiting or weight changes Physical Exam Const alert, oriented x3, no apparent distress and healthy appearing General Appearance: cooperative GI normal to inspection, nondistended, normoactive bowel sounds, soft to palpation,non-tender and non-distended Percussion: normal to percussion Rectal Exam: deferred Assessment & Plan Assessment/Plan (1) Encounter for screening colonoscopy: PLAN: She was explained alternatives, benefits, risk include not withstanding bleeding, infection, sepsis, perforation, need for brain surgery . She will have an ASA of 3. 04/01/25 0903 Cosigner Signature (if applicable): CC: Dr. Doroteo Dominguez MD; James Hwang DO~ Signed [facility]07-30-2025 [facility] Medical Records Department [address] [place] [address] History Physical Exam 04/01/25 0901 MR#: [id number] Acct: [id number] Name: SHADIA TURNER Rep #: [id number] : 1940 84 From: James Hwang DO PCP: Dr. Doroteo Dominguez MD Status:[facility] Location: [place] [address] HPI - General General Date of Admission: 04/01/25 Date of Service: 04/01/25 Chief Complaint: Screening colonoscopy HPI Narrative SHADIA TURNER, is a 84 F who presents for screening colonoscopy. 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 She tolerated prep without any problems. She denies any abdominal pain. She does admit to occasional constipation. [facility] Medical History Wears hearing aid Loss of hearing Wears partial dentures Wears glasses History of steroid therapy Osteoporosis Non-smoker History of echocardiogram Colonoscopy planned Hyperlipidemia bunion surgery Home Medications ???Medication ???Instructions ???Recorded ???Last Taken ???Type multivitamin (Multiple Vitamins 1 tab PO DAILY 06/10/20 Unknown Hi story tablet) meclizine 25 mg tablet 25 mg PO TID PRN dizziness 4 Unknown History cholecalciferol (vitamin D3) 50 50 mcg PO DAILY 03/27/25 Unknown H istory mcg (2,000 unit) capsule (D3-2000) lysine 500 mg tablet (L-Lysine) 500 mg PO DAILY 03/27/25 Unknown H istory Allergy/AdvReac Type Severity Reaction Status Date / Time Iodine and Iodide Containing Allergy Rash Verified 03/27/25 10:18 Produc latex Allergy Rash Verified 03/27/25 10:18 adhesive AdvReac Rash Verified 03/27/25 10:18 amoxicillin (From Augmentin) AdvReac Diarrhea Verified 03/27/25 10:18 clavulanic acid (From AdvReac Diarrhea Verified 03/27/25 10:18 Augmentin) Family History Mother Hypertension Surgical History H/O colectomy History of surgical removal of intestinal structure H/O removal of cyst Hx of removal of ovary Social History household members: spouse housing: house Smoking Status: Never smoker alcohol intake: never substance use type: does not use what type of physical activity do you participate in: swimming and aerobics frequency: 3-4 times per week seatbelt use: always do you feel safe at home: Yes ROS Constitutional Constitutional: Denies fatigue, fever(s), poor appetite, weight gain or weight loss Gastrointestinal Gastrointestinal: Denies belching, bloating, change in bowel habits, change in stool character, chewing difficulty, coffee ground emesis, constipation, cramping, diarrhea, dyspepsia, dysphagia, early satiety, excessive flatus, fecal incontinence, heartburn, hematemesis, hematochezia, hemorrhoids, loose stools, melena, nausea, odynophagia, rectal bleeding, tenesmus, vomiting or weight changes Physical Exam Const alert, oriented x3, no apparent distress and healthy appearing General Appearance: cooperative GI normal to inspection, nondistended, normoactive bowel sounds, soft to palpation, non-tender and non- distended Percussion: normal to percussion Rectal Exam: deferred Assessment Plan Assessment/Plan (1) Encounter for screening colonoscopy: PLAN: She was explained alternatives, benefits, risk include not withstanding bleeding, infection, sepsis, perforation, need for brain surgery . She will have an ASA of 3. 04/01/25 0903 Cosigner Signature (if applicable): CC: Dr. oDroteo Dominguez MD; James Friend, [facility] Evaluation note* Diagnosis Onset Date Resolution Status Admit Date URI (upper respiratory infection) ac janay November 02, 2024 1:18pm [facility] Work Phone: [phone]) 774-736902-21-[address] Quispe [facility] October 24, 2022 8:29pm Note Date/Time October 24, 2022 8:29pm [facility] Medical Records Department [address] [place] [address] Emergency Department Summary 10/24/22 MR#: [id number] Acct: [id number] Name: SHADIA TURNER Rep #:[id number] : 1940 82 From: Víctor Quispe MD PCP: Dr. Doroteo Dominguez MD Status:REG ER Location: ED HPI HPI - GI History of Present Illness Chief Complaint: Abd Pain Narrative Narrative: 82-year-old female presents with diarrhea that she has had since Sunday. Her symptoms began approximately 3 days ago. She might have mild nausea and vomitedonce, but she denies any severe abdominal pain. She states that her stool is liquid and she has to go so frequently, that sometimes she does not make it to the bathroom and soils herself. She denies any fevers or chills but may feel slight weakness generally. No recent antibiotic use. No blood in her emesis tracey her stool. No true exacerbating or alleviating factors. [facility] Medical History bunion surgery Hyperlipidemia Home Medications cholecalciferol (vitamin D3) 25 mcg (1,000 unit) tablet 1,000 unit PO DAILY SUPPLEMENT 08/14/18 [History Last Taken Unknown] magnesium amino acid chelate 100 mg tablet 1 tab PO DAILY SUPPLEMENT 10/16/18 [History Last Taken Unknown] atorvastatin 10 mg tablet 10 mg PO DAILY 06/10/20 [History Last Taken Unknown] coenzyme Q10 75 mg capsule (Ultra CoQ10) 75 mg PO DAILY 06/10/20 [History Last Taken Unknown] multivitamin (Multiple Vitamins tablet) 1 tab PO DAILY 06/10/20 [History Last Taken Unknown] meclizine 25 mg tablet 25 mg PO TID #30 tabs 03/19/21 [Rx Last Taken Unknown] Allergy/AdvReac Type Severity Reaction Status Date / Time Iodine and Iodide Containing Allergy Rash Verified 10/24/22 18:07 Produc latex Allergy Rash Verified 10/24/22 18:07 adhesive AdvReac Rash Verified 10/24/22 18:07 amoxicillin [From Augmentin] AdvReac Diarrhea Verified 10/24/22 18:07 clavulanic acid AdvReac Diarrhea Verified 10/24/22 18:07 [From Augmentin] Family History Mother Hypertension Surgical History H/O colectomy H/O removal of cyst History of surgical removal of intestinal structure Hx of removal of ovary Social History household members: spouse housing: house Smoking Status: Never smoker alcohol intake: never substance use type: does not use what type of physical activity do you participate in: swimming and aerobics frequency: 3-4 times per week seatbelt use: always do you feel safe at home: Yes ROS ROS ED ROS Narrative Constitutional: No fever, no chills. Generalized weakness. HEENT: No sore throat. No neck pain. No loss of vision. No rhinorrhea. Cardiovascular: No chest pain. No palpitations. No pedal edema. Respiratory: No cough, no shortness of breath. Abdominal: No abdominal pain. 1 episode of nausea and vomiting in the last few days. Multiple episodes of liquid stool, nonbloody over the last 24 hours especially. Genitourinary: No dysuria. No hematuria. Musculoskeletal: No myalgias. No arthralgias. Neurologic: No headaches. No dizziness. No lightheadedness. Skin: No rash. No change in color. Psychiatric: No depression. No anxiety. EXAM Physical Exam Narrative Exam Narrative: Afebrile. Vital signs noted. HEENT: Normocephalic. Atraumatic. PERRL, EOMI. Neck soft and supple. No pointtenderness or step off. Cardiovascular: Regular rate and rhythm. No murmurs, rubs, or gallops appreciated. Respiratory: No tachypnea. Lungs clear to auscultation bilaterally. Gastrointestinal: Abdomen soft, minimal diffuse tenderness, with normoactive bowel sounds. No rebound or guarding. Neurological: Awake. Alert. Nonfocal, nonlateralizing. Skin: No rash. Normal color. No pallor. Musculoskeletal: No pedal edema. Full range of motion extremities. Const Vital Signs: 10/24/22 18:05 10/24/22 20:14 Temperature 97.5 F L Temperature Source Temporal Pulse Rate 98 Respiratory Rate 16 15 Blood Pressure 122/75 H Blood Pressure Mean 90 Pulse Ox 94 95 Oxygen Delivery Method Room Air Room Air MDM MDM MDM Narrative Medical decision making narrative: Comprehensive work-up was pursued. I do not feel that she necessarily has C. difficile as she does not have recent antibiotic use. I reviewed her laboratorywork which demonstrates a normal white count of 7.6, hemoglobin slightly hemoconcentrated at 16.7, platelet count normal at 222. I reviewed her CMP which shows sodium normal at 139 with potassium 3.5, BUN slightly elevated at 32with creatinine of 1.74 but she does have chronic kidney injury on her laboratory work. Glucose appropriately elevated at 119. Normal anion gap of 11. ALT and AST are normal at 26 and 31. Lipase normal at 103. CT imaging wasobtained without IV contrast as she has an allergy to iodine. There is no acuteprocess in review of the radiology report, no evidence of obstruction. She did give a stool sample which was sent for stool studies. She has a negative lactoferrin currently. Her C. difficile and others are pending. Upon repeat examination after normal saline IV fluid bolus of 1 L, she states she feels improved. I feel she can be discharged safely home with follow-up. Return instructions to the emergency department were reviewed. She will follow-up withher primary care provider. I do not feel that antibiotics for her diarrhea are indicated currently. Disposition is discharged in stable condition. Lab Data Attestation: I reviewed the patient's lab results. Labs: Laboratory Results - last 24 hr 10/24/22 10/24/22 18:25 18:25 WBC 7.6 RBC 5.58 H Hgb 16.7 H Hct 49.8 H MCV 89.2 MCH 29.9 MCHC 33.5 RDW Std Deviation 45.0 H RDW Coeff of Marshall 13.7 Plt Count 222 MPV 10.7 Immature Gran % (Auto) 0.900 Neut % (Auto) 60.6 Lymph % (Auto) 20.7 [place] % (Auto) 16.4 H Eos % (Auto) 0.9 Baso % (Auto) 0.5 Absolute Neuts (auto) 4.6 Absolute Lymphs (auto) 1.58 Nucleated RBC % 0 Sodium 139 Potassium 3.5 Chloride 108 H Carbon Dioxide 20.0 L Anion Gap 11 BUN 32 H Creatinine 1.74 H Estim Creat Clear Calc 17.91 Est GFR (MDRD) Af Amer 36 L Est GFR (MDRD) Non-Af 30 L BUN/Creatinine Ratio 18.4 Glucose 119 H Calcium 9.0 Total Bilirubin 0.80 AST 31 ALT 26 Alkaline Phosphatase 65 Total Protein 7.6 Albumin 3.8 Globulin 3.8 Albumin/Globulin Ratio 1.0 Lipase 103 Radiography Diagnostic Testing: Clinical Impression(s) from Imaging Studies Abdomen/Pelvis CT 10/24/22 18:32 IMPRESSION: No acute disease. Sensitivity limited without IV and oral contrast. Electronically Signed: Tyrell Lujan MD at 19:34 EST , Discharge Plan Triage Chief Complaint: Abd Pain Other Complaint: Nausea/Vomiting/Diarrhea ED Provider: Víctor Quispe Dx/Rx/DC Orders Clinical Impression: Diarrhea, Abdominal pain Instructions: ED Abdominal Pain Unkn Cause Fem, ED Diarrhea, Unknown Cause Prescriptions: No Action Ultra CoQ10 75 mg capsule 75 mg PO DAILY multivitamin [Multiple Vitamins] Tablet 1 tab PO DAILY atorvastatin 10 mg tablet 10 mg PO DAILY cholecalciferol (vitamin D3) 1,000 UNIT tablet 1,000 unit PO DAILY magnesium amino acid chelate 100 MG tablet 1 tab PO DAILY meclizine 25 mg tablet 25 mg PO TID Qty: 30 0RF Primary Care Provider: Doroteo Dominguez Referrals: Doroteo Dominguez MD [Primary Care Provider] - 1-2 Days if not improving Disposition Disposition: Home, Self Care What to do if you have Problems For any increased pain, shortness of breath, bleeding, nausea or vomiting, chestpain, or any unexpected problems, contact your Primary Care Provider. Call [facility] ([phone]) or report to the closest Emergency Room. Call 911 if necessary. 10/24/222028 <Electronically signed by Víctor Quispe MD> Cosigner Signature (if applicable): CC: Dr. Doroteo Dominguez MD ~ Signed [facility] Work Phone: Consult note Author Ryna Andujar [facility] Note Date/Time April 01, 2025 11:0 1am [facility] Medical Records Department [address] [place] [address] Anesthesia Postop Eval I 04/01/25 1100 MR#: [id number] Acct: [id number] Name: SHADIA TURNER Rep #:[id number] : 1940 84 From: Ryan Andujar PCP: Dr. Doroteo Dominguez MD Status:REG SDC Y Race: C Location: [place] [address] Anesthesia: Postop Eval I Current Vital Signs Temperature: 97.9 F Pulse Rate: 71 Blood Pressure: 86/50 Respiratory Rate: 16 Pulse Ox: 96 Oxygen Delivery Method: Room Air Assessment Airway patent: Yes Spontaneous unlabored respirations: Yes Mental status: Asleep nausea: No Vomiting: No Anesthesia Complication: No Fluid Hydration Crystalloid volume administer (ml): 400 Total IV fluid infused: 400 Progress Note Anesthesia document: Postop Eval 1 completed: Yes 04/01/25 1101 <Electronically signed by Ryan Andujar > Date _ Ryan Bachignsy Signature: Date CC: ~ Signed [facility] Work Phone: Consult note Author Craig Burdick [facility] Note Date/Time April 01, 2025 11:1 6am [facility] Medical Records Department [address] [place] [address] Anesthesia Postop Eval II 04/01/25 1114 MR#: [id number] Acct: [id number] Name: SHADIA TURNER Rep #:[id number] : 1940 84 From: Craig Salinas PCP: Dr. Doroteo Dominguez MD Status:REG [facility] Y Race: C Location: [place] [address] Anesthesia Postop Eval I Sum Postop Eval Completion status Anesthesia document: Postop Eval 1 completed: Yes Anesthesia Postop Eval I Summary Anesthesia Postop Eval I Summary: Anesthesia Postop Eval I: Assessment Summary Airway patent Yes 04/01/25 11:01 [email or web address] Spontaneous unlabored Yes 04/01/25 11:01 [email or web address] respirations Mental status Asleep 04/01/25 11:01 [email or web address] nausea No 04/01/25 11:01 [email or web address] Vomiting No 04/01/25 11:01 [email or web address] Anesthesia Postop Eval I: Fluid Summary Crystalloid volume administer 400 04/01/25 11:01 [email or web address] (ml) Colloids volume administered ( ml) Blood Product volume administered (ml) Total IV fluid infused 400 04/01/25 11:01 [email or web address] Anesthesia Postop Eval I: Summary Notes Anesthesia Complication No 04/01/25 11:01 [email or web address] Anesthesia Complication Comment: Post-operative progress note Anesthesia: Postop Eval II Evaluation Mental status: Awake and Calm Pain Level: 0 nausea: No Vomiting: No Progress Note Post-operative progress note: Tolerated well Complications Anesthesia Complication: No 04/01/25 1116 <Electronically signed by Craig Burdick MD> Date _ Craig Burdick MD Cosigner Signature: Date CC: ~ Signed [facility] Work Phone: Evaluation noteNo assessment information available [facility] Work Phone: Reason for referral (narrative)No reason for referral information availableWCleveland Clinic [facility] Work Phone: Summary Purpose Family History No Family History Records Found Relationship Condition Age at Onset Recorded Date/T joann mother Hypertension Unknown Advance Directives No Advanced Directives Records Found Advance Directive Response Recorded Date/ Time Advance Directives Yes February 16 12:17pm Living Will Yes March 19, 2021 7:42pm Power of Sap Pp Consultant Yes March 19 7:42pm Advance Directive Response Recorded Date/ Time Advance Directives Yes February 16 12:17pm Living Will No October 24, 2 023 6:05pm Power of Sap Pp Consultant No October 24, 2022 6:05pm Advance Directive Response Recorded Date/ Time Advance Directives Yes February 16 1:17pm Living Will No October 24, 2 023 7:05pm Power of Sap Pp Consultant No October 24, 2022 7:05pm Advance Directive Response Recorded Date/ Time Living Will No October 24, 2 023 7:05pm Do you have a Healthcare Power of Sap Pp Consultant? No October 24, 2022 7:05pm Advance Directives Yes February 16 1:17pm Advance Directive Response Recorded Date/ Time Advance Directives Yes February 16 1:17pm Advance Directive Response Recorded Date/ Time Do you have a Healthcare Power of Sap Pp Consultant? Yes March 27, 2025 10:21am Name of Medical Power of Sap Pp Consultant OLIVIA March 27, 2025 10:21am Advance Directives Yes February 16 1:17pm Chief Complaint and Reason for Visit Chief Complaint SCREENING/OSTEO Chief Complaint SCREENING/OSTEO Dizziness and giddiness NASAL CONGESTION Tinnitus, bilateral Chief Complaint SCREENING/OSTEO Dizziness and giddiness NASAL CONGESTION Tinnitus, bilateral ABD PAIN, N/V/D Chief Complaint Dizziness and giddin ess NASAL CONGESTION Tinnitus, bilateral ABD PAIN, N/V/D SCREENING/OSTEO Chief Complaint SCREENING Chief Complaint Admit Date PROLIA August 22, 2024 10:41am Cough November 02, 2024 1:18 pm SCREENING OSTEO November 18, 2024 12: 15pm Reason for Visit Admit Date URI (upper respiratory infection) November 02, 2024 1:18pm Chief Complaint Admit Date Cough November 02, 2024 1:18 pm SCREENING OSTEO November 18, 2024 12: 15pm PROLIA February 13, 2025 10:4 8am Chief Complaint Admit Date PROLIA February 13, 2025 10:4 8am Reason for Visit Admit Date Encounter for screening colonoscopy April 01, 2025 8:46am Additional Source Comments INFORMATION SOURCE (unrecogn ized section and content) DATE CREATED AUTHOR 10/09/2020 [facility] DATE CREATED AUTHOR AUTHOR'S ORGANIZ ATION 04/01/2025 [facility] Goals (unrecognized section and content) Goals may be documented in a n alternate sectionGoals may be documented in an alternate sectionGoals may be documented in an alternate sectionGoals may be documented in an alternate sectionGoals may be documented in an alternate sectionGoals may be documented in an alternate sectionGoals may be documented in an alternate section Care Teams (unrecognized sec tion and content) Team Status: Active Member Role Status Dates Dr. Doroteo Dominguez MD Family Provider Active Dr. Doroteo Dominguez MD Primary Care Provider Active Team Status: Active Member Role Status Dates Dr. Doroteo Dominguez MD Primary Care Provider, Referring P hector Active Dr. Doroteo Hess MD Attending Provider Active Team Status: Inactive Member Role Status Dates Dr. Doroteo Dominguez MD Primary Care Provider, Attending P romigdaliader Active Team Status: Inactive Member Role Status Dates Dr. Doroteo Dominguez MD Primary Care Provide r, Attending Provider, Referring Provider Active Team Status: Inactive Member Role Status Dates Dr. Doroteo Dominguez MD Primary Care Provider Active Víctor Quispe MD Emergency Provider Active Team Status: Inactive Member Role Status Dates Dr. Doroteo Dominguez MD Primary Care Provider Active Víctor Quispe MD Attending Provider, Emergency Provid er Active Team Status: Active Member Role Status Dates Dr. Doroteo Dominguez MD Primary Care Provider Active Team Status: Inactive Member Role Status Dates Dr. Doroteo Dominguez MD Primary Care Provider Active Start: August 22, 2024 End: August 22, 2024 Dr. Doroteo Dominguez MD Attending Provider Active St art: August 22, 2024 End: August 22, 2024 Dr. Doroteo Dominguez MD Referring Provider Active St art: August 22, 2024 End: August 22, 2024 Team Status: Inactive Member Role Status Dates Dr. Doroteo Dominguez MD Primary Care Provider Active Start: September 26, 2024 End: September 26, 2024 Dr. Doroteo Dominguez MD Attending Provider Active St art: September 26, 2024 End: September 26, 2024 Dr. Doroteo Dominguez MD Referring Provider Active St art: September 26, 2024 End: September 26, 2024 Team Status: Inactive Member Role Status Dates Dr. Doroteo Dominguez MD Primary Care Provider Active Start: September 29, 2024 End: September 29, 2024 Dr. oDroteo Dominguez MD Attending Provider Active St art: September 29, 2024 End: September 29, 2024 Dr. Doroteo Dominguez MD Referring Provider Active St art: September 29, 2024 End: September 29, 2024 Team Status: Inactive Member Role Status Dates Dr. Doroteo Dominguez MD Primary Care Provider Active Start: November 02, 2024 End: November 02, 2024 Dr. Doroteo Dominguez MD Referring Provider Active St art: November 02, 2024 End: November 02, 2024 Krishna Carroll HOUSEHOLD MANAGER, HOUSEHOLD MANAGER-C Attending Provider Active S tart: November 02, 2024 End: November 02, 2024 Team Status: Inactive Member Role Status Dates Dr. Doroteo Dominguez MD Primary Care Provider Active Start: November 18, 2024 End: November 18, 2024 Dr. Doroteo Dominguez MD Attending Provider Active St art: November 18, 2024 End: November 18, 2024 Dr. Doroteo Dominguez MD Referring Provider Active St art: November 18, 2024 End: November 18, 2024 Team Status: Inactive Member Role Status Dates Dr. Doroteo Dominguez MD Primary Care Provider Active Start: February 13, 2025 End: February 13, 2025 Dr. Doroteo Dominguez MD Attending Provider Active St art: February 13, 2025 End: February 13, 2025 Dr. Doroteo Dominguez MD Referring Provider Active St art: February 13, 2025 End: February 13, 2025 Team Status: Active Member Role/Relationship Status Dates Dr. Doroteo Dominguez MD Primary Care Provider Active Team Status: Inactive Member Role/Relationship Status Dates Dr. Doroteo Dominguez MD Primary Care Provider Active Start: February 13, 2025 End: February 13, 2025 Dr. Doroteo Dominguez MD Attending Provider Active St art: February 13, 2025 End: February 13, 2025 Dr. Doroteo Dominguez MD Referring Provider Active St art: February 13, 2025 End: February 13, 2025 Team Status: Inactive Member Role/Relationship Status Dates Dr. Doroteo Dominguez MD Primary Care Provider Active Start: April 01, 2025 End: April 01, 2025 Dr. Doroteo Dominguez MD Referring Provider Active St art: April 01, 2025 End: April 01, 2025 Dr. James Hwang DO Attending Provider Active Start: April 01, 2025 End: April 01, 2025 Team Status: Active Member Role/Relationship Status Dates Dr. Doroteo Dominguez MD Primary Care Provider Active Start: April 01, 2025 Dr. Doroteo Dominguez MD Referring Provider Active St art: April 01, 2025 Dr. James Hwang DO Attending Provider Active Start: April 01, 2025 Dr. James Hwang DO Other Provider Active St art: April 01, 2025 FOR RECORDS PERTAINING TO PATIENTS WHO ARE OR HAVE BEEN ENROLLED IN A CHEMICAL DEPENDENCY/SUBSTANCEABUSE PROGRAM, SOME INFORMATION MAY BE OMITTED. This clinical summary was aggregated from multiple sources. Caution should be exercised in using it in the provision of clinical care. This summary normalizes information from multiple sources, and as a consequence, information in this document may materially change the coding, format and clinical context of patient data. In addition, data may be omitted in some cases. CLINICAL DECISIONS SHOULD BE BASED ON THE PRIMARY CLINICAL RECORDS. [facility] [employer] [facility]. provides no warranty or guarantee of the accuracy or completeness of information in this document.
--- OUTSIDE RECORDS SUMMARY | 2025-04-05 16:36 | XMS RPT_ITS | CCD ---
Author Organization [facility] CliniSyva Care Team Providers Care Field Marketing Director Name Role Phone Dr. Doroteo Dominguez Primary Care Provider [phone] Doroteo Dominguez Referring Provider [phone] Dr. Doroteo Hess Attending Provider Alberto GEORGE, Dr. Sadler Primary Care Provider Dr. Doroteo Dominguez MD Attending Provider [phone] Doroteo Dominguez MD Referring Provider [phone] Carly KIM-Krishna Coroando Attending Provider [phone] Doroteo Dominguez MD Primary Care Provider Dr. Doroteo Dominguez MD Referring Provider [phone] Alberto GEORGE, Dr. Sadler Attending Provider [phone] Alberto GEORGE, Dr. Sadler Primary Care Provider Alberto GEORGE, Dr. Sadler Attending Provider [phone] Alberto GEORGE, Dr. Sadler Referring Provider [phone] James Hwang DO Attending Provider [...] [adhesive] Propensity to adverse reactions 1 Rash [facility] (8 sources) Amoxicillin Drug Allergy 1 Diarrhea [facility] (8 sources) Clavulanate Drug Allergy 1 Diarrhea [facility] (8 sources) Iodine Compounds Allergy to substance 1 [facility] (8 sources) Latex Allergy to substance 1 [facility] (1 source) Amoxicillin Drug Allergy 5 [facility] Repository (1 source) Clavulanate Drug Allergy 5 [facility] Repository (1 source) Latex Drug allergy (disorder) 5 [facility] Repository (1 source) Iodine and Iodide Containing Produc Drug allergy (disorder) 5 [facility] Repository Medications Current Medications Medication Drug Class(es) [...] 25, 2018 12:00am June 10, 2020 11:36am [id number] actuat albuterol 0.09 mg/actuat metered dose [...] 15, 2015 11:00pm August 26, 2018 7:48am Oekrthvkfnip-Ht-Rfty-Mineral s (One Daily Women's) 1 EACH tablet (8 sources) Start: 10-16-2018 End: 10-25-2018 take 1 tablet by mouth once daily Rcmqzklcmvze-Ln-Sibj-Minerals (One Daily Women's) 1 EACH tablet Discontinued 1 NMA PO DAILY October 16, 2018 1:00am October 25, 2018 7:12am SUPPLEMENT Start: 10-16-2018 End: 10-25-2018 take 1 tablet by mouth once daily Ikrzhkktxfoi-Te-Gpxx-Minerals (One Daily Women's) 1 EACH tablet Discontinued 1 NMA PO DAILY October 16, 2018 1:00am October 25, 2018 7:12am Start: 10-16-2018 End: 10-25-2018 take 1 tablet by mouth once daily Prcicadeavzv-Jz-Tsrw-Minerals (One Daily Women's) 1 EACH tablet Discontinued 1 EACH PO DAILY October 16, 2018 1:00am October 25, 2018 7:12am Start: 10-16-2018 End: 10-25-2018 take 1 tablet by mouth once daily Qhjngtlreabx-Tm-Mnos-Minerals (One Daily Women's) 1 EACH tablet Discontinued [...] Range Facility Colonoscopy Reporton 025 Colonoscopy Report [facility] Medical Records Department [address] [place] [address] Colonoscopy Report MR#: [id number] Acct: [id number] Name: SHADIA TURNER Rep #: [id number] : 1940 84 From: James Hwang DO PCP: Dr. Doroteo Dominguez MD Status:[facility] Patient Name: Shadia Turner Procedure [...] to age. Procedure Code(s): --- Professional --- 48268, Colonoscopy, flexible; with biopsy, single or multiple CPT copyright 2021 [employer]. All rights reserved. The codes documented in this report are preliminary and upon equipment or machinery cleaner review may be revised to meet current compliance requirements. James Hwang DO 04/01/2025 10:56:10 AM This report has been signed electronically. Number of Addenda: 0 Note Initiated On: 04/01/2025 10:19 AM 04/01/25 1056 Date James Hwang DO Cosigner Signature: Date (if indicated) CC: Dr. Doroteo Dominguez MD; James Hwang DO Date Dictated: 04/01/25 1019 Date Transcribed: Machine Erector: RF Signed [facility] MR/OP.[facility] Medical Records Department [address] [place] [address] Provation Physician Letter MR#: [id number] Acct: [id number] Name: SHADIA TURNER Rep #: [id number] : 1940 84 From: James Hwang DO PCP: Dr. Doroteo Dominguez MD Status:REG [facility] 04/01/2025 Doroteo Dominguez [address] [place] [address] Re : Colonoscopy procedure for Shadia Turner [...] DO Date Dictated: 04/01/25 1019 Date Transcribed: Machine Erector: MARIEL Signed [facility] MR/POSTOP.[facility] 04-01-2025 MR/POSTOP.[facility] Medical Records Department [address] [place] [address] Anesthesia Postop Eval I 04/01/25 1100 MR#: [id number] Acct: [id number] Name: SHADIA TURNER Rep #: [id number] : 1940 84 From: Ryan Andujar PCP: Dr. Doroteo Dominguez MD Status:REG SDC Y Race: C Location: [place] [address] Anesthesia: Postop Eval I Current Vital Signs [...] Ryan Can Signature: Date CC: Signed Normal [facility] MR/ZSPCRQAA2ao 04-01-2025 MR/POSTOPAN2 [facility] Medical Records Department [address] [place] [address] Anesthesia Postop Eval II 04/01/25 1114 MR#: [id number] Acct: [id number] Name: SHADIA TURNER Rep #: [id number] : 1940 84 From: Craig Burdick MD PCP: Dr. Doroteo Dominguez MD Status:REG [facility] Y Race: C Location: [place] [address] Anesthesia Postop Eval I Sum Postop Eval [...] Complications Anesthesia Complication: No 04/01/25 1116 Date [facility]: Date CC: Signed Normal [facility] Bone density reportOrdered B y: Dominic Haywood on 11-18-2024 Study report Skeletal system DXA [facility] Imaging Services [address] [place], [place] [address] Dexa Bone Density Study MR#: [id number] Acct: [id number] Name: SHADIA TURNER Rep #: [id number] : 1940 F 84 From: Elmer Haywood MD PCP: Dr. Doroteo Dominguez MD Status: [facility] Study:Dexa Bone Density Study Date of Exam: 11/18/24 Exam# [id number] Ordering Dr: Sy Dominguez MD PROCEDURE: DEXA [...] density since the previous examination. Reading Location: [place] [address] CC: Dr. Doroteo Dominguez MD ~ Machine Erector: Signed [facility] Breast imaging reportOrdered By: Lorie Iglesias on 11-18-2024 Study report [facility] Imaging Services [address] [place] [address] SCRN MAMM (CAD)W/JIM BILAT MR#: [id number] Acct: [id number] Name: SHADIA TURNER Rep #: [id number] : 1940 84 From: Bambi Iglesias MD PCP: Dr. Doroteo Dominguez MD Status: [facility] Study:SCRN MAMM (CAD)W/JIM BILAT Date of Exa m: 11/18/24 Exam# [id number] Ordering Dr: Sy Dominguez MD PROCEDURE: SCRN [...] of the results by letter. Reading Location: [id number] CC: Dr. Doroteo Dominguez MD ~ Machine Erector: Signed [facility] Dexa Bone Density Studyon Dexa Bone Density Study [facility] Imaging Services [address] [place], [place] [address] Dexa Bone Density Study MR#: [id number] Acct: [id number] Name: SHADIA TURNER Rep #: [id number] : 1940 F 84 From: Dominic tirado MD PCP: Dr. Doroteo Dominguez MD Status: [facility] CL Study: Dexa Bone Density Study Date of Exam: 11/18/24 Exam# [id number] Ordering Dr: Doroteo Dominguez MD PROCEDURE: DEXA [...] density since the previous examination. Reading Location: [place] [address] CC: Dr. Doroteo Dominguez MD Machine Erector: Signed Normal [facility] SCRN MAMM (CAD)W/JIM BILATo n 11-18-2024 SCRN MAMM (CAD)W/JIM BILAT [facility] Imaging Services [address] [place] [address] SCRN MAMM (CAD)W/JIM BILAT MR#: [id number] Acct: [id number] Name: SHADIA TURNER Rep #: [id number] : 1940 F 84 From: Lorie Iglesias MD PCP: Dr. Doroteo Dominguez MD Status: REG CLI Study: SCRN MAMM (CAD)W/JIM BILAT Date of Exam: 11/01 04/27 Exam# [id number] Ordering Dr: Doroteo Dominguez MD PROCEDURE: SCRN [...] of the results by letter. Reading Location: [facility] CC: Dr. Doroteo Dominguez MD Machine Erector: Signed Normal [facility] Laboratory - Microbiology an d Antimicrobial susceptibilityOrdered By: Krishna Carroll on 11-02-2024 SARS-CoV-2 (COVID-19) RNA ROZ+probe Ql (Unsp spec) Not detected [facility] No Panel InformationOrdered By: Krishna Carroll on 11-02-2024 Influenza Types A,B Rapid (Clinic) Negative [facility] Office Visit Reporton 2024 Office Visit Report [facility] [address] [place] [address] OFFICE VISIT Date of Service: 11/02/24 MR#: [id number] Acct: [id number] Patient: SHADIA TURNER Rep #: [id number] : 1940 Provider: MAURISIO zabala Age/Sex: 84/F Location: [facility] Status: Signed Intake Vital Signs 08/22/24 11:01 [...] Neck: normal (more content not included)... Normal [facility] L3410.9999on 10-07-2024 [facility] Misc. Normal [facility] Comment on above: Order Comment: 54017 4STOOL CULTURE RT Result Comment: TEST RESULTS LIMITS Stool Culture Salmonella/Shigella Screen Final report Result 1 No Salmonella or Shigella recovered. Campylobacter Culture Final report Result 1 No Campylobacter species isolated. E coli Shiga Toxin EIA Negative Negative TESTING PERFORMED AT [facility]. ORIGINAL REPORT ON FILE IN LAB CONTAINS ADDITIONAL TEST SITE INFORMATION. Performed By: #### L 3410.9999 ####[facility] [address] [place], [address] ANTINUCLEAR ANTIBODIES DIREC Ton 09-30-2024 PERLITA,DIRECT Negative Normal Negative [facility] Comment on above: Order Comment: Order Date: 09/26/24Order Info: 269- - PERLITA Result Comment: Perf ormed at: - [facility] [address] [id number] Addictions Therapist: Aster Villegas MD, Phone: [phone] Performed at: - [facility] [address] [id number] Addictions Therapist: Juanjo Brown PhD, Phone: [phone] Performed By: #### L 3100.5475, L101.9900, L500.4050, L501.6710, L501.2450, L3410.9820 ####[facility] [address] [place], [address] L5500.0550on 09-30-2024 BEEF <0.10 Normal Class 0 [facility] Comment on above: Order Comment: Order Date: 09/26/24Order Info: 269-09 - PERLITA Performed By: #### L 5500.0550 ####[facility] [address] [place], [address] CHOCOLATE <0.10 Normal Class 0 [facility] Comment on above: Order Comment: Order Date: 09/26/24Order Info: 269- - PERLITA Performed By: #### L 5500.0550 ####[facility] [address] [place], [address] CODFISH <0.10 Normal Class 0 [facility] Comment on above: Order Comment: Order Date: 09/26/24Order Info: 269- - PERLITA Performed By: #### L 5500.0550 ####[facility] [address] [place], [address] COMMENT Comment Normal . [facility] Comment on above: Order Comment: Order Date: [...] Very High Performed By: #### L 5500.0550 ####[facility] [address] [place], [address] CORN <0.10 Normal Class 0 [facility] Comment on above: Order Comment: Order Date: 09/26/24Order Info: 0- - PERLITA Performed By: #### L 5500.0550 ####[facility] [address] [place], [address] EGG, WHOLE <0.10 Normal Class 0 [facility] Comment on above: Order Comment: Order Date: 09/26/24Order Info: 0-1 - PERLITA Performed By: #### L 5500.0550 ####[facility] [address] [place], [address] MILK (COW) <0.10 Normal Class 0 [facility] Comment on above: Order Comment: Order Date: 09/26/24Order Info: 0-1 - PERLITA Performed By: #### L 5500.0550 ####[facility] [address] [place], [address] MUSSELS <0.10 Normal Class 0 [facility] Comment on above: Order Comment: Order Date: 09/26/24Order Info: 0-1 - PERLITA Performed By: #### L 5500.0550 ####[facility] [address] [place], [address] PEANUT <0.10 Normal Class 0 [facility] Comment on above: Order Comment: Order Date: 09/26/24Order Info: 0- - PERLITA Performed By: #### L 5500.0550 ####[facility] [address] [place], [address] PORK <0.10 Normal Class 0 [facility] Comment on above: Order Comment: Order Date: 09/26/24Order Info: 0- - PERLITA Performed By: #### L 5500.0550 ####[facility] [address] [place], [address] SALMON <0.10 Normal Class 0 [facility] Comment on above: Order Comment: Order Date: 09/26/24Order Info: 0- - PERLITA Performed By: #### L 5500.0550 ####[facility] [address] [place], [address] SHRIMP <0.10 Normal Class 0 [facility] Comment on above: Order Comment: Order Date: 09/26/24Order Info: 0- - PERLITA Performed By: #### L 5500.0550 ####[facility] [address] [place], [address] SOYBEAN <0.10 Normal Class 0 [facility] Comment on above: Order Comment: Order Date: 09/26/24Order Info: 0- - PERLITA Performed By: #### L 5500.0550 ####[facility] [address] [place], [address] TUNA <0.10 Normal Class 0 [facility] Comment on above: Order Comment: Order Date: 09/26/24Order Info: 0- - PERLITA Performed By: #### L 5500.0550 ####[facility] [address] [place], [address] WHEAT <0.10 Normal Class 0 [facility] Comment on above: Order Comment: Order Date: 09/26/24Order Info: 0270-1 - PERLITA Performed By: #### L 5500.0550 ####[facility] [address] [place], [place], [address] pH, Stoolon 09-30-2024 pH, STOOL 7.5 Normal 7.0-7.5 [facility] Comment on above: Order Comment: Test( s) 731504-nF, Stoolwas developed and its performance characteristicsdetermined by [facility]. It has not been cleared or approvedby the Food and Drug Administration. Result Comment: Perf ormed at: [address] [id number] Addictions Therapist: Juanjo Brown PhD, Phone: [phone] Performed By: #### L 1177.3864 ####[facility] [address] [place], [place], [id number] Celiac AB,Comprehensiveon ANTIGLIADIN IGA 4 units Normal 0-19 [facility] Comment on above: Order Comment: Order Date: 09/26/24Order Info: 0751-1 - CELAB Result Comment: Nega tive 0 - 19 Weak Positive 20 - 30 Moderate to Strong Positive >30 Performed By: #### L 3100.5475, L101.9900, L500.4050, L501.6710, L501.2450, L3410.2350 ####[facility] [address] [place], [place], [address] ANTIGLIADIN IGG 2 units Normal 0-19 [facility] Comment on above: Order Comment: Order Date: 09/26/24Order Info: 0751-1 - CELAB Result Comment: Nega tive 0 - 19 Weak Positive 20 - 30 Moderate to Strong Positive >30 Performed By: #### L 3100.5475, L101.9900, L500.4050, L501.6710, L501.2450, L3410.2350 ####[facility] [address] [place], [place], [address] ENDOMYSIAL IGA Negative Normal Negative [facility] Comment on above: Order Comment: Order Date: 09/26/24Order Info: 075-1 - CELAB Performed By: #### L 3100.5475, L101.9900, L500.4050, L501.6710, L501.2450, L3410.2350 ####[facility] [address] [place], [place], [address] IMMUNOGLOB A QN 162 mg/dL Normal 64-422 [facility] Comment on above: Order Comment: Order Date: 09/26/24Order Info: 075- - CELAB Result Comment: Perf ormed at: [facility] [id number] Addictions Therapist: Juanjo Brown PhD, Phone: [phone] Performed By: #### L 3100.5475, L101.9900, L500.4050, L501.6710, L501.2450, L3410.2350 ####[facility] [address] [place], [place], [address] tTG IGA <2 Normal 0-3 [facility] Comment on above: Order Comment: Order Date: 09/26/24Order Info: 075- - CELAB Result Comment: Nega tive 0 - 3 Weak Positive 4 - 10 Positive >10 Tissue Transglutaminase (tTG) has been identified as the endomysial antigen. Studies have demonstr- ated that endomysial IgA antibodies have over 99% specificity for gluten sensitive enteropathy. Performed By: #### L 3100.5475, L101.9900, L500.4050, L501.6710, L501.2450, L3410.2350 ####[facility] [address] [place], [place], [address] tTG IGG <2 Normal 0-5 [facility] Comment on above: Order Comment: Order Date: 09/26/24Order Info: 075-1 - CELAB Result Comment: Nega tive 0 - 5 Weak Positive 6 - 9 Positive >9 Performed By: #### L 3100.5475, L101.9900, L500.4050, L501.6710, L501.2240, L3410.2350 ####[facility] [address] [place], [address] No Panel InformationOrdered By: Doroteo Dominguez on 09-29-2024 Miscellaneous Test See comment [facility] Comment on above: TEST RESULTS LIMITSS tool Culture Salmonella/Shigella Screen Final report Result 1 No Salmonella or Shigella recovered. Campylobacter Culture Final report Result 1 No Campylobacter species isolated. E coli Shiga Toxin EIA Negative Negative TESTING PERFORMED AT [facility]. ORIGINAL REPORT ON FILE IN LAB CONTAINS ADDITIONAL TEST SITE INFORMATION. pH (Stl)Ordered By: Doroteo philippe on 09-29-2024 Stool pH 7.5 7.0-7.5 [facility] Comment on above: Performed at: [facility] [email or web address] [address] [id number] Director: Juanjo Brown PhD, Phone: [phone] PERLITA serumOrdered By: Doroteo arteaga on 09-26-2024 Anti-Nuclear Antibody Screen Negative Negative [facility] Comment on above: Performed at: - [facility] [employer] [address] [id number] Director: Aster Villegas MD, Phone: [phone] at: [employer] [facility] [id number] Director: Juanjo Brown PhD, Phone: [phone] Albumin to globulin ratioOrd ered By: Doroteo Dominguez on 09-26-2024 Albumin/Globulin [Mass ratio] 0.9 {ratio} 0.9-2.4 [facility] Beef IgE Qn (S)Ordered By: Mayito Dominguez on 09-26-2024 Beef Allergen (RAST) <0.10 kU/L Class 0 [facility] Bilirubin, totalOrdered By: Doroteo Dominguez on 09-26-2024 Bilirubin [Mass/Vol] 0.60 mg/dL 0.20-1.00 [facility] Comment on above: For patients on eltr ombopag therapy, use of Dimension Dunmor TBIL is not recommended. Blood urea nitrogen (BUN)/cr eatinine ratioOrdered By: Doroteo Dominguez on 09-26-2024 Urea nitrogen/Creatinine [Mass ratio] 15.7 mg/mg 10- [facility] C-reactive protein measureme nt by high sensitivity methodOrdered By: Doroteo Domignuez on 09-26-2024 C-Reactive Protein Extended Range < 2.90 mg/L 0.0-3.0 [facility] Comment on above: C-Reactive Protein ( CRP) provides useful information for thediagnosis, therapy and monitoring of inflammatory processesand associated diseases. For the evaluation of Relative Riskfor Cardiovascular Disease, a High Sensitivity CRP (HSCRP)should be ordered. CRPon 09-26-2024 C-REACTIVE PROT < 2.90 Normal 0.0-3.0 [facility] Comment on above: Order Comment: Order Date: 09/26/24Order Info: 0786-1 - CMPOrder Info: 3040-3 - LIPASEOrder Info: 28013-4 - CRP Result Comment: C-Re active Protein (CRP) provides useful information for the diagnosis, therapy and monitoring of inflammatory processes and associated diseases. For the evaluation of Relative Risk for Cardiovascular Disease, a High Sensitivity CRP (HSCRP) should be ordered. Performed By: #### L 3100.5493, L101.9900, L500.4050, L501.6710, L501.2450, L3410.2350 ####[facility] [address] [place], [address] Carbon dioxide measurementOr dered By: Doroteo Dominguez on 09-26-2024 CO2 [Moles/Vol] 25.0 mmol/L 21.0-32.0 [facility] Chloride measurementOrdered By: Doroteo Dominguez on 09-26-2024 Chloride [Moles/Vol] 110 mmol/L High 98-107 [facility] Chocolate IgE Qn (S)Ordered By: Doroteo Dominguez on 09-26-2024 Chocolate Allergen (RAST) <0.10 kU/L Class 0 [facility] Codfish IgE Qn (S)Ordered By : Doroteo Dominguez on 09-26-2024 Codfish Allergen (RAST) <0.10 kU/L Class 0 [facility] Comprehensive Metabolic Prof ilon 09-26-2024 Albumin [Mass/Vol] 3.4 g/dL Normal 3.2-5.0 [facility] Comment on above: Order Comment: Order Date: 09/26/24Order Info: 0786-1 - CMPOrder Info: 3040-3 - LIPASEOrder Info: 82190-4 - CRP Performed By: #### L 3100.5475, L101.9900, L500.4050, L501.6710, L501.2450, L3410.2350 ####[facility] [address] [place], [place], [phone] Albumin/Globulin [Mass ratio] 0.9 {ratio} Normal 0.9-2.4 [facility] Comment on above: Order Comment: Order Date: 09/26/24Order Info: 0786-1 - CMPOrder Info: 3040-3 - LIPASEOrder Info: 96640-5 - CRP Performed By: #### L 3100.5475, L101.9900, L500.4050, L501.6710, L501.2450, L3410.2350 ####[facility] [address] [place], [place], [id number] ALK P 63 U/L Normal 45-117 [facility] Comment on above: Order Comment: Order Date: 09/26/24Order Info: 0786-1 - CMPOrder Info: 3040-3 - LIPASEOrder Info: 31844-8 - CRP Performed By: #### L 3100.5475, L101.9900, L500.4050, L501.6710, L501.2450, L3410.2350 ####[facility] [address] [place], [address] ALT [Catalytic activity/Vol] 26 U/L Normal 13-56 [facility] Comment on above: Order Comment: Order Date: 09/26/24Order Info: 0786-1 - CMPOrder Info: 3040-3 - LIPASEOrder Info: 98014-3 - CRP Performed By: #### L 3100.5475, L101.9900, L500.4050, L501.6710, L501.2450, L3410.2350 ####[facility] [address] [place], [address] AST [Catalytic activity/Vol] 22 U/L Normal 15-37 [facility] Comment on above: Order Comment: Order Date: 09/26/24Order Info: 0786-1 - CMPOrder Info: 3040-3 - LIPASEOrder Info: 77609-3 - CRP Performed By: #### L 3100.5475, L101.9900, L500.4050, L501.6710, L501.2450, L3410.2350 ####[facility] [address] [place], [address] Bilirubin [Mass/Vol] 0.60 mg/dL Normal 0.20-1.00 [facility] Comment on above: Order Comment: Order Date: 09/26/24Order Info: 0786-1 - CMPOrder Info: 3040-3 - LIPASEOrder Info: 49958-0 - CRP Result Comment: For patients on eltrombopag therapy, use of Dimension Dunmor TBIL is not recommended. Performed By: #### L 3100.5475, L101.9900, L500.4050, L501.6710, L501.2450, L3410.2350 ####[facility] [facility] [address] [place], [address] BUN/CRE 15.7 RATIO Normal 10-20 [facility] Comment on above: Order Comment: Order Date: 09/26/24Order Info: [id number] - CMPOrder Info: 3040-3 - LIPASEOrder Info: [id number] - CRP Performed By: #### L 3100.5475, L101.9900, L500.4050, L501.6710, L501.2450, L3410.2350 ####[facility] [address] [place], [address] CA,Total 9.1 mg/dL Normal 8.5-10.1 [facility] Comment on above: Order Comment: Order Date: 09/26/24Order Info: [id number] - CMPOrder Info: 3040-3 - LIPASEOrder Info: [id number] - CRP Performed By: #### L 3100.5475, L101.9900, L500.4050, L501.6710, L501.2450, L3410.2350 ####[facility] [address] [place], [address] Chloride [Moles/Vol] 110 mmol/L High 98-107 [facility] Comment on above: Order Comment: Order Date: 09/26/24Order Info: [id number] - CMPOrder Info: 3040-3 - LIPASEOrder Info: [id number] - CRP Performed By: #### L 3100.5475, L101.9900, L500.4050, L501.6710, L501.2450, L3410.2350 ####[facility] [address] [place], [address] CO2 [Moles/Vol] 25.0 mmol/L Normal 21.0-32.0 [facility] Comment on above: Order Comment: Order Date: 09/26/24Order Info: [id number] - CMPOrder Info: 3040-3 - LIPASEOrder Info: [id number] - CRP Performed By: #### L 3100.5475, L101.9900, L500.4050, L501.6710, L501.2450, L3410.2350 ####[facility] [address] [place], [address] Creatinine [Mass/Vol] 1.08 mg/dL High 0.55-1.02 [facility] Comment on above: Order Comment: Order Date: 09/26/24Order Info: [id number] - CMPOrder Info: 304-3 - LIPASEOrder Info: [id number] - CRP Result Comment: The validity of the calculated GFR GFRAA in patients over 70 years has not been determined. Clinical correlation is essential. Performed By: #### L 3100.5475, L101.9900, L500.4050, L501.6710, L501.2450, L3410.2350 ####[facility] [address] [place], [place], [phone](079) EST GFR - AA 62 mL/min Normal >60 [facility] Comment on above: Order Comment: Order Date: 09/26/24Order Info: [id number] - CMPOrder Info: 3039-3 - LIPASEOrder Info: [id number] - CRP Result Comment: Afri can Mosotho GFR Calc Performed By: #### L 3100.5475, L101.9900, L500.4050, L501.6710, L501.2450, L3410.2350 ####[facility] [address] [place], [place], [id number] GAP 6 Normal 5-15 [facility] Comment on above: Order Comment: Order Date: 09/26/24Order Info: [id number] - CMPOrder Info: 304-3 - LIPASEOrder Info: [id number] - CRP Performed By: #### L 3100.5475, L101.9900, L500.4050, L501.6710, L501.2450, L3410.2350 ####[facility] [address] [place], [place], [phone](498) GFR/1.73 sq M.predicted among non-blacks MDRD (S/P/Bld) [Vol rate/Area] 51 mL/min/{1.73_m2} Low >60 [facility] Comment on above: Order Comment: Order Date: 09/26/24Order Info: 0786-1 - CMPOrder Info: 3040-3 - LIPASEOrder Info: [id number] - CRP Result Comment: Non- GFR Calc Performed By: #### L 3100.5475, L101.9900, L500.4050, L501.6710, L501.2450, L3410.2350 ####[facility] [address] [place], [address] Globulin (S) [Mass/Vol] 3.9 g/dL Normal 2.2-4.2 [facility] Comment on above: Order Comment: Order Date: 09/26/24Order Info: [id number] - CMPOrder Info: 3039-3 - LIPASEOrder Info: [id number] - CRP Performed By: #### L 3100.5475, L101.9900, L500.4050, L501.6710, L501.2450, L3410.2350 ####[facility] [address] [place], [address] Glucose [Mass/Vol] 94 mg/dL Normal 74-106 [facility] Comment on above: Order Comment: Order Date: 09/26/24Order Info: 0786-1 - CMPOrder Info: 3040-3 - LIPASEOrder Info: [id number] - CRP Performed By: #### L 3100.5475, L101.9900, L500.4050, L501.6710, L501.2450, L3410.2350 ####[facility] [address] [place], [place], [id number] Potassium [Moles/Vol] 3.9 mmol/L Normal 3.5-5.1 [facility] Comment on above: Order Comment: Order Date: 09/26/24Order Info: 0786-1 - CMPOrder Info: 3040-3 - LIPASEOrder Info: [id number] - CRP Performed By: #### L 3100.5475, L101.9900, L500.4050, L501.6710, L501.2450, L3410.2350 ####[facility] [address] [place], [address] Sodium [Moles/Vol] 141 mmol/L Normal 136-145 [facility] Comment on above: Order Comment: Order Date: 09/26/24Order Info: 0786-1 - CMPOrder Info: 304-3 - LIPASEOrder Info: [id number] - CRP Performed By: #### L 3100.5475, L101.9900, L500.4050, L501.6710, L501.2450, L3410.2350 ####[facility] [address] [place], [address] T PROT 7.3 g/dL Normal 6.4-8.2 [facility] Comment on above: Order Comment: Order Date: 09/26/24Order Info: [id number] - CMPOrder Info: 304-3 - LIPASEOrder Info: [id number] - CRP Performed By: #### L 3100.5475, L101.9900, L500.4050, L501.6710, L501.2450, L3410.2350 ####[facility] [address] [place], [address] Urea nitrogen [Mass/Vol] 17 mg/dL Normal 7-18 [facility] Comment on above: Order Comment: Order Date: 09/26/24Order Info: [id number] - CMPOrder Info: 3040-3 - LIPASEOrder Info: [id number] - CRP Performed By: #### L 3100.5475, L101.9900, L500.4050, L501.6710, L501.2450, L3410.2350 ####[facility] [address] [place], [address] [place] IgE Qn (S)Ordered By: Mayito Dominguez on 09-26-2024 [place] Allergen (RAST) <0.10 kU/L Class 0 [facility] Cow milk IgE Qn (S)Ordered B y: Doroteo Dominguez on 09-26-2024 Cow's Milk Allergen <0.10 kU/L Class 0 [facility] Deamidated gliadin IgA antib elise assayOrdered By: Doroteo Dominguez on 09-26-2024 Anti-Gliadin IgA Antibody 4 units 0-19 [facility] Comment on above: Negative 0 - 19 Weak Positive 20 - 30 Moderate to Strong Positive >30 Deamidated gliadin IgG antib elise assayOrdered By: Doroteo Dominguez on 09-26-2024 Anti-Gliadin IgG Antibody 2 units 0-19 [facility] Comment on above: Negative 0 - 19 Weak Positive 20 - 30 Moderate to Strong Positive >30 Endomysial IgA antibody assa yOrdered By: Doroteo Dominguez on 09-26-2024 Endomysial IgA Antibody Negative Negative [facility] Erythrocyte Sed Rateon 09-26 SED RATE 4 mm/hr Normal 0-30 [facility] Comment on above: Order Comment: Order Date: 09/26/24Order Info: [id number] - SED Performed By: #### L 3100.5475, L101.9900, L500.4050, L501.6710, L501.2450, L3410.2350 ####[facility] [address] [place], [place], [address] Erythrocyte sedimentation ra teOrdered By: Doroteo Dominguez on 09-26-2024 ESR (Bld) [Velocity] 4 mm/h 0-30 [facility] Estimated glomerular filtrat ion rate (GFR) AmericanOrdered By: Doroteo Dominguez on 09-26-2024 Estimated GFR (MDRD) Amer 62 mL/min >60 [facility] Comment on above: GFR Calc Glomerular filtration rate ( GFR) estimationOrdered By: Doroteo Dominguez on 09-26-2024 Estimated GFR (MDRD) Non-Af Amer 51 mL/min Low >60 [facility] Comment on above: Non- GFR Calc Glucose measurementOrdered B y: Doroteo Dominguez on 09-26-2024 Glucose [Mass/Vol] 94 mg/dL 74-106 [facility] Laboratory - Chemistry and C hemistry - challengeOrdered By: Doroteo Dominguez on 09-26-2024 AST [Catalytic activity/Vol] 22 U/L 15-37 [facility] Lipaseon 09-26-2024 Lipase [Catalytic activity/Vol] 34 U/L Normal 13-75 [facility] Comment on above: Order Comment: Order Date: 09/26/24Order Info: [id number] - CMPOrder Info: 3040-3 - LIPASEOrder Info: [id number] - CRP Result Comment: Plea se note: LIPASE revised reference range effective 22. New Lipase methodology. Expected to produce lower values than the previous assay method. NEW Reference Range: 13 - 75 U/L Performed By: #### L 3100.5475, L101.9900, L500.4050, L501.6710, L501.2450, L3410.2350 ####[facility] [address] [place], [address] Lipase measurementOrdered By : Doroteo Dominguez on 09-26-2024 Lipase [Catalytic activity/Vol] 34 U/L 13- [facility] Comment on above: Please note:LIPASE r evised reference range effective 22. New Lipase methodology. Expected to produce lower values than the previous assay method. NEW Reference Range: 13 - 75 U/L No Panel InformationOrdered By: Doroteo Dominguez on 09-26-2024 Tissue Transglutaminase IgG Ab <2 U/mL 0-5 [facility] Comment on above: Negative 0 - 5 Weak Positive 6 - 9 Positive >9 Peanut IgE Qn (S)Ordered By: Doroteo Dominguez on 09-26-2024 Peanut Allergen (RAST) <0.10 kU/L Class 0 [facility] Pork IgE Qn (S)Ordered By: Mayito Dominguez on 09-26-2024 Pork Allergen (RAST) <0.10 kU/L Class 0 [facility] Potassium measurementOrdered By: Doroteo Domignuez on 09-26-2024 Potassium [Moles/Vol] 3.9 mmol/L 3.5-5.1 [facility] [place] IgE Qn (S)Ordered By: Doroteo Dominguez on 09-26-2024 [place] Allergen IgE Antibody <0.10 kU/L Class 0 [facility] Serum anion gap measurementO rdered By: Doroteo Dominguez on 09-26-2024 Anion gap [Moles/Vol] 6 mmol/L 5-15 [facility] Serum globulin measurementOr dered By: Doroteo Dominguez on 09-26-2024 Globulin (S) [Mass/Vol] 3.9 g/dL 2.2-4.2 [facility] Serum immunoglobulin A measu rementOrdered By: Doroteo Dominguez on 09-26-2024 Immunoglobulin A 162 mg/dL 64-422 [facility] Comment on above: Performed at: [address] [id number] Director: Juanjo Brown PhD, Phone: [phone] Serum mussel specific IgE an tibody assayOrdered By: Doroteo Dominguez on 09-26-2024 Mussel Allergen IgE Antibody <0.10 kU/L Class 0 [facility] Serum or plasma alanine raines otransferase (ALT) measurementOrdered By: Doroteo Dominguez on 09-26-2024 ALT [Catalytic activity/Vol] 26 U/L 13-56 [facility] Serum or plasma albumin cole urement (mass/volume)Ordered By: Doroteo Dominguez on 09-26-2024 Albumin [Mass/Vol] 3.4 g/dL 3.2-5.0 [facility] Serum or plasma alkaline mali sphatase measurementOrdered By: Doroteo Dominguez on 09-26-2024 ALP [Catalytic activity/Vol] 63 U/L 45-117 [facility] Serum or plasma calcium cole urement (mass/volume)Ordered By: Doroteo Dominguez on 09-26-2024 Calcium [Mass/Vol] 9.1 mg/dL 8.5-10.1 [facility] Serum or plasma creatinine m easurement (mass/volume)Ordered By: Doroteo Dominguez on 09-26-2024 Creatinine [Mass/Vol] 1.08 mg/dL High 0.55-1.02 [facility] Comment on above: The validity of the calculated GFR & GFRAA in patients over 70 years has not been determined. Clinical correlation is essential. Serum or plasma urea nitroge n measurement (mass/volume)Ordered By: Doroteo Dominguez on 09-26-2024 Urea nitrogen [Mass/Vol] 17 mg/dL 7-18 [facility] Serum shrimp specific IgE an tibody assayOrdered By: Doroteo Dominguez on 09-26-2024 Shrimp Allergen <0.10 kU/L Class 0 [facility] Service comment (Unsp spec) [Interp]Ordered By: Doroteo Dominguez on 09-26-2024 RAST Comment Comment . [facility] Comment on above: Levels of Specific I gE Class Description of Class ----- < 0.10 0 Negative 0.10 - 0.31 0/I Equivocal/Low 0.32 - 0.55 I Low 0.56 - 1.40 II Moderate 1.41 - 3.90 III High 3.91 - 19.00 IV Very High 19.01 - 100.00 V Very High >100.00 Very High Sodium levelOrdered By: Dorotoe Dominguez on 09-26-2024 Sodium [Moles/Vol] 141 mmol/L 136-145 [facility] Soybean IgE Qn (S)Ordered By : Doroteo Dominguez on 09-26-2024 Soybean Allergen (RAST) <0.10 kU/L Class 0 [facility] Total proteinOrdered By: Georgia Dominguez on 09-26-2024 Protein [Mass/Vol] 7.3 g/dL 6.4-8.2 [facility] Tuna IgE Qn (S)Ordered By: Mayito Dominguez on 09-26-2024 Tuna Allergen (RAST) <0.10 kU/L Class 0 [facility] Wheat IgE Qn (S)Ordered By: Doroteo Dominguez on 09-26-2024 Wheat Allergen (RAST) <0.10 kU/L Class 0 [facility] Whole Egg IgE Qn (S)Ordered By: Doroteo Dominguez on 09-26-2024 Egg Whole Allergen <0.10 kU/L Class 0 [facility] tTG IgA Qn (S)Ordered By: Sy Dominguez on 09-26-2024 Tissue Transglutaminase IgA Ab <2 U/mL 0-3 [facility] Comment on above: Negative 0 - 3 Weak Positive 4 - 10 Positive >10 Tissue Transglutaminase (tTG) has been identified as the endomysial antigen. Studies have demonstr- ated that endomysial IgA antibodies have over 99% specificity for gluten sensitive enteropathy. Lyme Screen W/Reflex WBon LYME SCREEN Ab Negative Normal Negative [facility] Comment on above: Order Comment: Order Date: [...] to 14 days is recommended. Performed at: [address] [id number] Addictions Therapist: Juanjo Brown PhD, Phone: [phone] Performed By: #### L 3100.3450, L3100.5475, L7000.5300, L501.9520, L101.9900, L503.0105, L506.0250, L505.7010 #### [facility] [address] [place], [place], [phone] Protein Electroph, Son 07-14 Albumin [Mass/Vol] 3.4 g/dL Normal 2.9-4.4 [facility] Comment on above: Order Comment: Order Date: 07/10/24 Order Info: [id number] - PROEL Order Info: [id number] - LYMS Performed By: #### L 3100.3450, L3100.5475, L7000.5300, L501.9520, L101.9900, L503.0105, L506.0250, L505.7010 #### [facility] [address] [place], [address] (514) Albumin/Globulin [Mass ratio] 1.2 {ratio} Normal 0.7-1.7 [facility] Comment on above: Order Comment: Order Date: 07/10/24 Order Info: 006 - PROEL Order Info: 9586-9 - LYMS Performed By: #### L 3100.3450, L3100.5475, L7000.5300, L501.9520, L101.9900, L503.0105, L506.0250, L505.7010 #### [facility] [address] [place], [address] (109) ALPHA-1 GLOBUL 0.2 g/dL Normal 0.0-0.4 [facility] Comment on above: Order Comment: Order Date: 07/10/24 Order Info: 59-09 - PROEL Order Info: [id number] - LYMS Performed By: #### L 3100.3450, L3100.5475, L7000.5300, L501.9520, L101.9900, L503.0105, L506.0250, L505.7010 #### [facility] [address] [place], [address] (171) ALPHA-2 GLOBUL 0.6 g/dL Normal 0.4-1.0 [facility] Comment on above: Order Comment: Order Date: 07/10/24 Order Info: 006 - PROEL Order Info: 9586-9 - LYMS Performed By: #### L 3100.3450, L3100.5475, L7000.5300, L501.9520, L101.9900, L503.0105, L506.0250, L505.7010 #### [facility] [address] [place], [address] (523) BETA GLOBULIN 1.0 g/dL Normal 0.7-1.3 [facility] Comment on above: Order Comment: Order Date: 07/10/24 Order Info: 006 - PROEL Order Info: 9586-9 - LYMS Performed By: #### L 3100.3450, L3100.5475, L7000.5300, L501.9520, L101.9900, L503.0105, L506.0250, L505.7010 #### [facility] [address] [place], [place], [id number] GAMMA GLOBULIN 1.0 g/dL Normal 0.4-1.8 [facility] Comment on above: Order Comment: Order Date: 07/10/24 Order Info: 006 - PROEL Order Info: 9586-9 - LYMS Performed By: #### L 3100.3450, L3100.5475, L7000.5300, L501.9520, L101.9900, L503.0105, L506.0250, L505.7010 #### [facility] [address] [place], [place], [id number] Globulin (S) [Mass/Vol] 2.8 g/dL Normal 2.2-3.9 [facility] Comment on above: Order Comment: Order Date: 07/10/24 Order Info: 006 - PROEL Order Info: 9586-9 - LYMS Performed By: #### L 3100.3450, L3100.5475, L7000.5300, L501.9520, L101.9900, L503.0105, L506.0250, L505.7010 #### [facility] [address] [place], [place], [phone] INTERPRETATION Comment Normal . [facility] Comment on above: Order Comment: Order Date: 07/10/24 Order Info: 0061 - PROEL Order Info: 9586-9 - LYMS Result Comment: Prot ein electrophoresis scan will follow via computer, mail, or senior officer delivery. Performed By: #### L 3100.3450, L3100.5475, L7000.5300, L501.9520, L101.9900, L503.0105, L506.0250, L505.7010 #### [facility] [address] [place], [place], [id number] M-SPIKE 0.4 g/dL Abnormal Not Observed [facility] Comment on above: Order Comment: Order Date: 07/10/24 Order Info: 59-09 - PROEL Order Info: 9586-9 - LYMS Performed By: #### L 3100.3450, L3100.5475, L7000.5300, L501.9520, L101.9900, L503.0105, L506.0250, L505.7010 #### [facility] [address] [place], [place], [id number] NOTE: Comment Normal . [facility] Comment on above: Order Comment: Order Date: [...] L7000.5300, L501.9520, L101.9900, L503.0105, L506.0250, L505.7010 #### [facility] [address] [place], [place], [phone] Protein [Mass/Vol] 6.2 g/dL Normal 6.0-8.5 [facility] Comment on above: Order Comment: Order Date: 07/10/24 Order Info: 59-09 - PROEL Order Info: 9586-9 - LYMS Performed By: #### L 3100.3450, L3100.5475, L7000.5300, L501.9520, L101.9900, L503.0105, L506.0250, L505.7010 #### [facility] [address] [place], [place], [address] T4 Free Directon 07-14-2024 T4 FREE DIRECT 0.83 ng/dL Normal 0.76-1.46 [facility] Comment on above: Order Comment: PILAR Edmond ADD T4F TO BLOOD DRAWN 07/10/24 PER Order Date: 07/10/24Order Info: [id number] - TSHOrder Info: [id number] - RAOrder Info: 2284-8 - FOLSUNKN Performed By: #### L 506.0400 ####[facility] [address] [place], [place], [address] ANTINUCLEAR ANTIBODIES DIREC Ton 07-12-2024 PERLITA,DIRECT Negative Normal Negative [facility] Comment on above: Order Comment: Order Date: 07/10/24 Order Info: [id number] - PERLITA Result Comment: Perf ormed at: - [facility] [place] [address] Addictions Therapist: Juanjo Brown PhD, Phone: [phone] Performed By: #### L 3100.3450, L3100.5475, L7000.5300, L501.9520, L101.9900, L503.0105, L506.0250, L505.7010 #### [facility] [address] [place], [place], [address] Erythrocyte Sed Rateon 07-10 SED RATE 2 mm/hr Normal 0-30 [facility] Comment on above: Order Comment: Order Date: 07/10/24 Order Info: [id number] - SED Performed By: #### L 3100.3450, L3100.5475, L7000.5300, L501.9520, L101.9900, L503.0105, L506.0250, L505.7010 #### [facility] [address] [place], [place], [address] Folates, (Folic Acid)on FOLATES 41.20 ng/mL Normal 3.1-55.4 [facility] Comment on above: Order Comment: Order Date: 07/10/24 Order Info: [id number] - TSH Order Info: [id number] - RA Order Info: 2284-04 - FOLS UNK N Performed By: #### L 3100.3450, L3100.5475, L7000.5300, L501.9520, L101.9900, L503.0105, L506.0250, L505.7010 #### [facility] [address] [place], [place], [phone] Rheumatoid Factoron 07-10-20 RHEUMATOID FAC < 10.0 Normal <15 [facility] Comment on above: Order Comment: Order Date: 07/10/24 Order Info: 3015-11 - TSH Order Info: [id number] - RA Order Info: 2284-04 - FOLS UNK N Performed By: #### L 3100.3450, L3100.5475, L7000.5300, L501.9520, L101.9900, L503.0105, L506.0250, L505.7010 #### [facility] [address] [place], [place], [phone] Thyroid Stim Hormone (TSH)on 07-10-2024 TSH 4.190 uIU/mL High 0.358-3.74 0 [facility] Comment on above: Order Comment: Order Date: 07/10/24 Order Info: 3015- - TSH Order Info: [id number] - RA Order Info: 2284-04 - FOLS UNK N Performed By: #### L 3100.3450, L3100.5475, L7000.5300, L501.9520, L101.9900, L503.0105, L506.0250, L505.7010 #### [facility] [address] [place], [place], [phone] Vitamin B12on 07-10-2024 Cobalamin (Vitamin B12) [Mass/Vol] 423 pg/mL Normal 211-911 [facility] Comment on above: Order Comment: Order Date: 07/10/24 Order Info: [id number] - B12 Performed By: #### L 3100.3450, L3100.5475, L7000.5300, L501.9520, L101.9900, L503.0105, L506.0250, L505.7010 #### [facility] [address] [place], [address] Gastrointestinal pathogens p jose alfredo ROZ+probe (Stl)Ordered By: Dr. Quispe on 10-25-2022 Enteric Bacteriology Rotavirus [facility] Absolute lymphocyte countOrd ered By: Dr. Quispe on 10-24-2022 Lymphocytes Auto (Unsp spec) [#/Vol] 1.58 10*3/uL 0.83-4.51 [facility] Basophil percentageOrdered B y: Dr. Quispe on 10-24-2022 Basophils/100 WBC (Bld) 0.5 % 0-1 [facility] Bilirubin [Mass/Vol] 0.80 mg/dL 0.20-1.00 [facility] Comment on above: For patients on eltr ombopag therapy, use of Dimension [place] TBIL is not recommended. Chloride [Moles/Vol] 108 mmol/L 98-107 [facility] Eosinophils/100 WBC (Bld) 0.9 % 0-5 [facility] Glucose [Mass/Vol] 119 mg/dL 74-106 [facility] Comment on above: Fasting Glucose resu lt from 100 to 125 mg/dL suggests IMPAIRED HOMEOSTASIS per A.D.A. criteria. Neutrophils (Bld) [#/Vol] 4.6 10*3/uL 2.0-7.7 [facility] Neutrophils/100 WBC (Bld) 60.6 % 47-70 [facility] Potassium [Moles/Vol] 3.5 mmol/L 3.5-5.1 [facility] Protein [Mass/Vol] 7.6 g/dL 6.4-8.2 [facility] Sodium [Moles/Vol] 139 mmol/L 136-145 [facility] WBC (Bld) [#/Vol] 7.6 10*3/uL 4.4-11.0 [facility] Blood erythrocytes count (nu mber/volume)Ordered By: Dr. Quispe on 10-24-2022 RBC (Bld) [#/Vol] 5.58 10*6/uL 4.2-5.4 [facility] Blood hemoglobin measurement (mass/volume)Ordered By: Dr. Quispe on 10-24-2022 Hemoglobin (Bld) [Mass/Vol] 16.7 g/dL 12.0-15.0 [facility] Blood lymphocytes/100 leukoc ytesOrdered By: Dr. Quispe on 10-24-2022 Lymphocytes/100 WBC (Bld) 20.7 % 19-41 [facility] Blood monocytes/100 leukocyt esOrdered By: Dr. Quispe on 10-24-2022 Monocytes/100 WBC (Bld) 16.4 % 0-10 [facility] Blood platelet mean volumeOr dered By: Dr. Quispe on 10-24-2022 Platelet mean volume (Bld) [Entitic vol] 10.7 fL 6.2-12.0 [facility] Clostridium difficile detect ion by polymerase chain reactionOrdered By: Dr. Quispe on 10-24-2022 C. difficile DNA ROZ+probe Ql (Unsp spec) [facility] Determination of erythrocyte mean corpuscular volume (MCV)Ordered By: Dr. Quispe on 10-24-2022 MCV (RBC) [Entitic vol] 89.2 fL 81-99 [facility] [facility] Auto (Bld) [Volum e fraction]Ordered By: Dr. Quispe on 10-24-2022 Hematocrit (Bld) [Volume fraction] 49.8 % 37-47 [facility] Laboratory - Chemistry and C hemistry - challengeOrdered By: Dr. Quispe on 10-24-2022 ALP [Catalytic activity/Vol] 65 U/L 45-117 [facility] ALT [Catalytic activity/Vol] 26 U/L 13-56 [facility] CO2 [Moles/Vol] 20.0 mmol/L 21.0-32.0 [facility] Globulin (S) [Mass/Vol] 3.8 g/dL 2.2-4.2 [facility] Lipase [Catalytic activity/Vol] 103 U/L 73-393 [facility] Urea nitrogen/Creatinine [Mass ratio] 18.4 mg/mg 10-20 [facility] Laboratory - Hematology and Cell countsOrdered By: Dr. Quispe on 10-24-2022 Erythrocyte distribution width (RBC) [Entitic vol] 45.0 fL 35.1-43.9 [facility] Erythrocyte distribution width (RBC) [Ratio] 13.7 % 11.6-14.6 [facility] Immature granulocytes/100 WBC (Bld) 0.900 % 0.0-0.9 [facility] Comment on above: IG% - Immature Granu locytes (promyelocytes, myelocytes and metamyelocytes) > 1% indicates that a LEFT SHIFT is Present. MCH (RBC) [Entitic mass] 29.9 pg 27.0-32.0 [facility] Nucleated RBC/100 WBC (Bld) [Ratio] 0 % 0-5 [facility] MCHC Auto (RBC) [Mass/Vol]Or dered By: Dr. Quispe on 10-24-2022 MCHC (RBC) [Mass/Vol] 33.5 g/dL 32-36 [facility] No Panel InformationOrdered By: Dr. Quispe on 10-24-2022 Estimated Creatinine Clearance Calc 17.91 ml/min [facility] Estimated GFR (MDRD) Amer 36 mL/min >60 [facility] Comment on above: GFR Calc Estimated GFR (MDRD) Non-Af Amer 30 mL/min >60 [facility] Comment on above: Non- GFR Calc Platelets bldOrdered By: Dr. Quispe on 10-24-2022 Platelets (Bld) [#/Vol] 222 10*3/uL 150-450 [facility] Serum or plasma albumin cole urement (mass/volume)Ordered By: Dr. Quispe on 10-24-2022 Albumin [Mass/Vol] 3.8 g/dL 3.2-5.0 [facility] Serum or plasma albumin/glob ulin mass ratioOrdered By: Dr. Quispe on 10-24-2022 Albumin/Globulin [Mass ratio] 1.0 {ratio} 0.9-2.4 [facility] Serum or plasma calcium cole urement (mass/volume)Ordered By: Dr. Quispe on 10-24-2022 Calcium [Mass/Vol] 9.0 mg/dL 8.5-10.1 [facility] Serum or plasma creatinine m easurement (mass/volume)Ordered By: Dr. Quispe on 10-24-2022 Creatinine [Mass/Vol] 1.74 mg/dL 0.55-1.02 [facility] Comment on above: The validity of the calculated GFR & GFRAA in patients over 70 years has not been determined. Clinical correlation is essential. Serum or plasma urea nitroge n measurement (mass/volume)Ordered By: Dr. Quispe on 10-24-2022 Urea nitrogen [Mass/Vol] 32 mg/dL 7-18 [facility] Stool lactoferrin detection by immunoassayOrdered By: Dr. Quispe on 10-24-2022 Lactoferrin IA Ql (Stl) [facility] Thin prep Papanicolaou smear with manual screeningOrdered By: Dr. Quispe on 10-24-2022 Thin prep Papanicolaou smear with manual screening 31 U/L 15-37 [facility] Thin prep Papanicolaou smear with manual screening 11 5-15 [facility] Absolute lymphocyte countOrd ered By: Dr. Dominguez on 07-10-2022 Lymphocytes Auto (Unsp spec) [#/Vol] 1.98 10*3/uL 0.83-4.51 [facility] Basophil percentageOrdered B y: Dr. Dominguez on 07-10-2022 Basophils/100 WBC (Bld) 1.0 % 0-1 [facility] Bilirubin [Mass/Vol] 0.50 mg/dL 0.20-1.00 [facility] Comment on above: For patients on eltr ombopag therapy, use of Dimension [place] TBIL is not recommended. Chloride [Moles/Vol] 110 mmol/L 98-107 [facility] Eosinophils/100 WBC (Bld) 3.2 % 0-5 [facility] Glucose [Mass/Vol] 164 mg/dL 74-106 [facility] Comment on above: Fasting Glucose resu lt greater than or equal to 126 mg/dL suggests DIABETES MELLITUS per A.D.A. criteria. Neutrophils (Bld) [#/Vol] 3.9 10*3/uL 2.0-7.7 [facility] Neutrophils/100 WBC (Bld) 56.2 % 47-70 [facility] Potassium [Moles/Vol] 4.0 mmol/L 3.5-5.1 [facility] Protein [Mass/Vol] 6.8 g/dL 6.4-8.2 [facility] Sodium [Moles/Vol] 141 mmol/L 136-145 [facility] WBC (Bld) [#/Vol] 7.0 10*3/uL 4.4-11.0 [facility] Blood erythrocytes count (nu mber/volume)Ordered By: Dr. Dominguez on 07-10-2022 RBC (Bld) [#/Vol] 5.05 10*6/uL 4.2-5.4 [facility] Blood hemoglobin measurement (mass/volume)Ordered By: Dr. Dominguez on 07-10-2022 Hemoglobin (Bld) [Mass/Vol] 15.2 g/dL 12.0-15.0 [facility] Blood lymphocytes/100 leukoc ytesOrdered By: Dr. Dominguez on 07-10-2022 Lymphocytes/100 WBC (Bld) 28.4 % 19-41 [facility] Blood monocytes/100 leukocyt esOrdered By: Dr. Dominguez on 07-10-2022 Monocytes/100 WBC (Bld) 10.3 % 0-10 [facility] Blood platelet mean volumeOr dered By: Dr. Dominguez on 07-10-2022 Platelet mean volume (Bld) [Entitic vol] 11.1 fL 6.2-12.0 [facility] Determination of erythrocyte mean corpuscular volume (MCV)Ordered By: Dr. Dominguez on 07-10-2022 MCV (RBC) [Entitic vol] 93.3 fL 81-99 [facility] Hematocrit Auto (Bld) [Volum e fraction]Ordered By: Dr. Dominguez on 07-10-2022 Hematocrit (Bld) [Volume fraction] 47.1 % 37-47 [facility] Laboratory - Chemistry and C hemistry - challengeOrdered By: Dr. Dominguez on 07-10-2022 ALP [Catalytic activity/Vol] 58 U/L 45-117 [facility] ALT [Catalytic activity/Vol] 24 U/L 13-56 [facility] CO2 [Moles/Vol] 25.0 mmol/L 21.0-32.0 [facility] Globulin (S) [Mass/Vol] 3.5 g/dL 2.2-4.2 [facility] Urea nitrogen/Creatinine [Mass ratio] 15.2 mg/mg 10-20 [facility] Laboratory - Hematology and Cell countsOrdered By: Dr. Dominguez on 07-10-2022 Erythrocyte distribution width (RBC) [Entitic vol] 45.1 fL 35.1-43.9 [facility] Erythrocyte distribution width (RBC) [Ratio] 13.2 % 11.6-14.6 [facility] Immature granulocytes/100 WBC (Bld) 0.900 % 0.0-0.9 [facility] Comment on above: IG% - Immature Granu locytes (promyelocytes, myelocytes and metamyelocytes) > 1% indicates that a LEFT SHIFT is Present. MCH (RBC) [Entitic mass] 30.1 pg 27.0-32.0 [facility] Nucleated RBC/100 WBC (Bld) [Ratio] 0 % 0-5 [facility] MCHC Auto (RBC) [Mass/Vol]Or dered By: Dr. Dominguez on 07-10-2022 MCHC (RBC) [Mass/Vol] 32.3 g/dL 32-36 [facility] No Panel InformationOrdered By: Dr. Dominguez on 07-10-2022 Estimated GFR (MDRD) Amer 60 mL/min >60 [facility] Comment on above: GFR Calc Estimated GFR (MDRD) Non-Af Amer 50 mL/min >60 [facility] Comment on above: Non- GFR Calc Thyroid Stimulating Hormone (TSH) 3.47 uIU/mL 0.358-3.74 [facility] Platelets bldOrdered By: Dr. Dominguez on 07-10-2022 Platelets (Bld) [#/Vol] 252 10*3/uL 150-450 [facility] Serum or plasma albumin cole urement (mass/volume)Ordered By: Dr. Dominguez on 07-10-2022 Albumin [Mass/Vol] 3.3 g/dL 3.2-5.0 [facility] Serum or plasma albumin/glob ulin mass ratioOrdered By: Dr. Dominguez on 07-10-2022 Albumin/Globulin [Mass ratio] 0.9 {ratio} 0.9-2.4 [facility] Serum or plasma calcium cole urement (mass/volume)Ordered By: Dr. Dominguez on 07-10-2022 Calcium [Mass/Vol] 8.5 mg/dL 8.5-10.1 [facility] Serum or plasma creatinine m easurement (mass/volume)Ordered By: Dr. Dominguez on 07-10-2022 Creatinine [Mass/Vol] 1.12 mg/dL 0.55-1.02 [facility] Comment on above: The validity of the calculated GFR & GFRAA in patients over 70 years has not been determined. Clinical correlation is essential. Serum or plasma urea nitroge n measurement (mass/volume)Ordered By: Dr. Dominguez on 07-10-2022 Urea nitrogen [Mass/Vol] 17 mg/dL 7-18 [facility] Thin prep Papanicolaou smear with manual screeningOrdered By: Dr. Dominguez on 07-10-2022 Thin prep Papanicolaou smear with manual screening 23 U/L 15-37 [facility] Thin prep Papanicolaou smear with manual screening 6 5-15 [facility] CNPTOUTREACHon 10-05-2020 CNPTOUTREA Patient Outreach ([place] OCC3) SHADIA TURNER ([id number]) 1940 F Date Time Provider Department 10/05/20 [...] Fully Assessed Order(s):SARS-COVID VACCINE 1ST DOSE APPT [[id number]] Order #: [id number] FUTURE Prescriptions as of 10/05/2020 Sig: NEOMYCIN [...] Status:Closed by EPIC, PRODUSER on 10/08/20 Normal [facility] Vital Signs Date Time Vital Sign Value Performing Clinician Faci lity 04-01-2025 11:07-0400 Body temperature 98.4 [degF] Dr. Doroteo Dominguez MD Work Phone: [facility] 04-01-2025 11:07-0400 Diastolic blood pressure 89 mm[Hg] Dr. Doroteo Dominguez MD Work Phone: [facility] 04-01-2025 11:07-0400 Heart rate 67 /min Dr. Doroteo Dominguez MD Work Phone: [facility] 04-01-2025 11:07-0400 Respiratory rate 16 /min Dr. Doroteo Dominguez MD Work Phone: 8(608)018-696679 [place] [address] 04-01-2025 11:07-0400 SaO2% (BldA) [Mass fraction] 100 % Dr. Doroteo Dominguez MD Work Phone: 1(832)605-605652 [place] [address] 04-01-2025 11:07-0400 Systolic blood pressure 110 mm[Hg] Dr. Doroteo Dominguez MD Work Phone: 9(567)969-935652 [place] [address] 04-01-2025 09:13-0400 Body height 152.[address] Doroteo Dominguez MD Work Phone: 4(281)345-385552 [place] [address] 04-01-2025 09:13-0400 Body mass index (BMI) [Ratio] 25 kg/m2 Dr. Doroteo Dominguez MD Work Phone: 1(581)154-052252 [place] [address] 04-01-2025 09:13-0400 Body weight [address] Doroteo Dominguez MD Work Phone: 0(451)045-742352 [place] [address] 02-13-2025 11:00-0400 Body temperature 97.1 [degF] Dr. Doroteo Dominguez MD Work Phone: 2(027)240-984652 [place] [address] 02-13-2025 11:00-0400 Diastolic blood pressure 55 mm[Hg] Dr. Doroteo Dominguez MD Work Phone: 7(642)347-756352 [place] [address] 02-13-2025 11:00-0400 Heart rate 76 /min Dr. Doroteo Dominguez MD Work Phone: 3(041)573-208852 [place] [address] 02-13-2025 11:00-0400 Respiratory rate 16 /min Dr. Doroteo Dominguez MD Work Phone: 4(640)550-432752 [place] [address] 02-13-2025 11:00-0400 SaO2% (BldA) [Mass fraction] 96 % Dr. Doroteo Dominguez MD Work Phone: 4(033)411-049852 [place] [address] 02-13-2025 11:00-0400 Systolic blood pressure 143 mm[Hg] Dr. Doroteo Dominguez MD Work Phone: 0(235)240-245052 [place] [address] 11-02-2024 13:40-0500 Body temperature 98.7 [degF] Dr. Doroteo Dominguez MD Work Phone: 5(482)139-959652 [place] [address] 11-02-2024 13:40-0500 Diastolic blood pressure 62 mm[Hg] Dr. Doroteo Dominguez MD Work Phone: 2(238)712-472418 [place] [address] 11-02-2024 13:40-0500 Heart rate 63 /min Dr. Doroteo Dominguez MD Work Phone: 4(427)096-362498 [address] 11-02-2024 13:40-0500 SaO2% (BldA) [Mass fraction] 96 % Dr. Doroteo Dominguez MD Work Phone: 4(720)965-993298 [address] 11-02-2024 13:40-0500 Systolic blood pressure 110 mm[Hg] Dr. Doroteo Dominguez MD Work Phone: 9(908)984-624452 [place] [address] 08-22-2024 11:01-0500 Body height 152.[address] Doroteo Dominguez MD Work Phone: 5(145)720-798152 [place] [address] 08-22-2024 11:01-0500 Body mass index (BMI) [Ratio] 25.4 kg/m2 Dr. Doroteo Dominguez MD Work Phone: 3(941)676-412952 [place] [address] 08-22-2024 11:01-0500 Body temperature 98 [degF] Dr. Doroteo Dominguez MD Work Phone: 0(966)813-523652 [place] [address] 08-22-2024 11:01-0500 Body weight 58.[address] Doroteo Dominguez MD Work Phone: 8(032)134-196852 [place] [address] 08-22-2024 11:01-0500 Diastolic blood pressure 80 mm[Hg] Dr. Doroteo Dominguez MD Work Phone: 0(365)703-559798 [address] 08-22-2024 11:01-0500 Heart rate 73 /min Dr. Doroteo Dominguez MD Work Phone: 5(705)226-790752 [place] [address] 08-22-2024 11:01-0500 Respiratory rate 18 /min Dr. Doroteo Dominguez MD Work Phone: 4(411)272-495352 [place] [address] 08-22-2024 11:01-0500 SaO2% (BldA) [Mass fraction] 94 % Dr. Doroteo Dominguez MD Work Phone: 5(177)233-045318 [place] [address] 08-22-2024 11:01-0500 Systolic blood pressure 141 mm[Hg] Dr. Doroteo Dominguez MD Work Phone: [facility] 10-24-2022 20:14-0500 Respiratory rate 15 /min Dr. Doroteo Dominguez Work Phone: [facility] 10-24-2022 20:14-0500 SaO2% (BldA) [Mass fraction] 95 % Dr. Doroteo Dominguez Work Phone: [facility] 10-24-2022 18:05-0500 Body height 152.[address] Doroteo Dominguez Work Phone: [facility] 10-24-2022 18:05-0500 Body mass index (BMI) [Ratio] 26.2 kg/m2 Dr. Doroteo Dominguez Work Phone: [facility] 10-24-2022 18:05-0500 Body temperature 97.5 [degF] Dr. Doroteo Dominguez Work Phone: [facility] 10-24-2022 18:05-0500 Body weight [address] Doroteo Dominguez Work Phone: [facility] 10-24-2022 18:05-0500 Diastolic blood pressure 75 mm[Hg] Dr. Doroteo Dominguez Work Phone: [facility] 10-24-2022 18:05-0500 Heart rate 98 /min Dr. Doroteo Dominguez Work Phone: [facility] 10-24-2022 18:05-0500 Systolic blood pressure 122 mm[Hg] Dr. Doroteo Dominguez Work Phone: [facility] Encounters Encounter Date Encounter Type Care Provider Facility Start: 04-01-2025 Non-patient / Non-visit James Green nd, DO -[facility] Start: 04-01-2025 End: 04-01-2025 Admission to same day surgery center James Hwang DO -Endoscopy Work Phone: Start: 04-01-2025 End: 04-01-[address] Doroteo Dominguez MD Work Phone: -Endoscopy Start: 02-13-2025 End: 02-13-[address] Doroteo Dominguez MD -Medical Out Work Phone: Start: 02-13-2025 End: 02-13-[address] Doroteo Dominguez MD Work Phone: [facility] Work Phone: Start: 11-18-2024 End: 11-18-[address] Doroteo Dominguez MD Work Phone: [facility] Work Phone: Start: 11-18-2024 End: 11-18-[address] Doroteo Dominguez MD -Outpatient Bone Densitometry Work Phone: Start: 11-18-2024 End: 11-18-2024 ambulatory Doroteo Domniguez Facility:[facility] Start: 11-02-2024 End: 11-02-2024 Patient encounter procedure Krishna FORDE [facility] Work Phone: Start: 11-02-2024 End: 11-02-2024 ambulatory Doroteo Dominguez Facility:[facility] Start: 09-29-2024 End: 09-29-[address] Doroteo Dominguez MD -Laboratory, Specimen Work Phone: Start: 09-29-2024 End: 09-29-2024 ambulatory Doroteo Dominguez Facility:[facility] Start: 09-26-2024 End: 09-26-[address] Doroteo Dominguez MD -Laboratory, [facility] Start: 09-26-2024 End: 09-26-2024 ambulatory Doroteo Dominguez Facility:[facility] Start: 08-22-2024 End: 08-22-[address] Doroteo Dominguez MD -Medical Out Work Phone: Start: 08-22-2024 End: 08-22-2024 ambulatory Doroteo Dominguez Facility:[facility] Start: 07-10-2024 End: 07-10-2024 ambulatory Doroteo Dominguez Facility:[facility] Start: 08-03-2023 End: 08-03-2023 ambulatory [facility] Work Phone: Start: 08-03-2023 End: 08-03-2023 Patient encounter procedure [facility]-Outpatient Breast Imaging Work Phone: Start: 11-16-2022 End: 11-16-[address] Doroteo Dominguez Work Phone: [facility] Work Phone: Start: 11-16-2022 End: 11-16-[address] Doroteo Dominguez Work Phone: [facility]-Outpatient Bone Densitometry Start: 10-24-2022 End: 10-24-2022 Emergency department patient visit Dr. Doroteo Dominguez Work Phone: [facility]-Emergency Department Start: 09-21-2022 End: 09-21-[address] Doroteo Dominguez Work Phone: [facility] Work Phone: Start: 09-21-2022 End: 09-21-[address] Doroteo Dominguez Work Phone: [facility] Start: 07-26-2022 Non-patient / Non-visit Dr. Sy Dominguez Work Phone: [facility] Start: 07-26-2022 End: 07-26-[address] Doroteo Dominguez Work Phone: [facility]-Cardiovascular Services Start: 07-10-2022 End: 07-10-2022 ambulatory [facility] Work Phone: Start: 07-10-2022 End: 07-10-2022 Patient encounter procedure [facility]-Outpatient Bone Densitometry Procedures Date Procedure Procedure Detail [...] Dominguez Work Phone: Lactoferrin measurement Dr. Doroteo Doimnguez Work Phone: Plan of Treatment Date Care Activity Detail Author Start: 04-01-2025 Patient discharge [facility] Start: 11-16-2022 Dual energy X-ray absorptiometry Dexa Bone Density Study [facility] Start: 10-24-2022 Enteric precautions [facility] Bilirubin measuremen t, urine [facility] C. difficile DNA Amplification C. difficile DNA Amplification [facility] Clostridioides diffi cile DNA [Presence] in Unspecified specimen by ROZ with probe detection [facility] Enteric Bacteriology Enteric Bacteriology [facility] Gastrointestinal pat [facility] panel - Stool by ROZ with probe detection [facility] Hemoglobin [Presence ] in Urine [facility] Measurement of keton es in urine using dipstick [facility] Microscopic urinalysis [facility] Ova and parasites identified in Unspecified specimen by Light microscopy [facility] Patient Education ED Abdominal P ain Unkn Cause Fem ED Diarrhea, Unknown Cause [facility] Work Phone: Patient referral [facility] Work Phone: pH of Urine [facility] Specific gravity of Urine [facility] Urinalysis, blood, qualitative [facility] Urine dipstick for glucose [facility] Urine dipstick for leukocyte esterase [facility] Urine dipstick for nitrite [facility] Urine dipstick for protein [facility] Urine examination [facility] Urine microscopy: epithelial cells [facility] Urine Microscopy: wh ite cells [facility] Urobilinogen [Presen ce] in Urine [facility] Immunizations Immunization Date Immunization Notes Care Provider Fa cility 10-21-2020 [facility] ([facility]) [facility] 09-23-2020 Covid ([facility]) [facility] 05-22-2018 Influenza virus vaccine [facility] Payers Date Payer Category Payer Medicare [id number] 2024 Self-pay [id number] Medicare MEDICARE PART A B [id number] Medicare MEDICARE PART A B [id number] Unknown [id number] 2.16.8 [id number] Unknown [id number] 2.16.8 [id number] Unknown [id number] 2.16.8 [id number] Unknown [id number] 2.16.8 [id number] Unknown [id number] 2.16.8 [id number] Unknown [id number] 2.16.8 [id number] Unknown [id number] 2.16.8 [id number] Unknown [id number] 2.16.8 [id number] Unknown [id number] 2.16.8 [id number] Social History Date Type Detail Facility Start: 03-19-2021 End: 10-24-2022 Tobacco smoking status NHIS Unknown if ever smoked [facility] Start: 08-19-2018 Non-smoker [facility] Start: 1940 Sex Assigned At Female [facility] Start: 11-27-2014 None [facility] Start: 11-27-2014 Spouse/ Signif icant Other [facility] Start: 10-24-2022 End: 03-27-2025 Tobacco smoking status NHIS Never smoked tobacco (finding) [facility] Start: 11-26-2024 Sex Female (finding) [facility] Medical Equipment Procedure Code Equipment Code [...] Assessment Result Facility 04-01-2025 Cognitive function Voice/Name [facility] Work Phone: 02-13-2025 Cognitive function Awake;Alert;A ppropriate;Fol lows Commands [facility] Work Phone: 08-22-2024 Cognitive function Voice/Name [facility] Work Phone: Clinical Notes 10-24-2022 to 04-01-2025 Note Date & Type Note Facility 04-01-2025 Consult note Note Date/Time April 01, 2025 9:20am [facility] Medical Records Department [address] [place] [address] Pre-Anesthesia Evaluation 04/01/25 0917 MR#: [id number] Acct: [id number] Name: SHADIA TURNER Rep #:[id number] : 1940 84 From: Craig Salinas PCP: Dr. Doroteo Dominguez MD Status:REG [facility] Race: C Location: [place] [address] ASA Classification* ASA Classification ASA Classification: 2 [...] Procedure(s): COLONOSCOPY Anesthesia History Anesthesia History - equalizer operator: Anesthesia History - equalizer operator Hx Hospitalization No 03/27/25 10:21 Any Problems [...] take am of surgery PONV PONV - equalizer operator: PONV - equalizer operator Female Yes 03/27/25 10:21 HX of Motion [...] 04/01/25 09:13 Respiratory Assessment Respiratory Assessment - equalizer operator: Respiratory Tract Infection Hx - equalizer operator Hx Respiratory Tract Infection No 03/27/25 10:21 STOP Sleep Apnea STOP Sleep Apnea - equalizer operator: STOP Sleep Apnea - equalizer operator Hx Hypertension No 03/27/25 10:21 Hx Sleep [...] Tobacco Use History Tobacco Use History - equalizer operator: Tobacco Use History - equalizer operator Tobacco Use Smoking Status Never smoker 03/27/25 10:21 Hx Tobacco Use No 03/27/25 10:21 Years Smoking Packs Smoked per Day Smoking Cessation Date was within the last 15 years Hx Smoking Cessation Date Hx Smoking Cessation No: NON SMOKER 03/27/25 10:21 Counseling Hematologic Medial History Hematologic Hx - equalizer operator: Hematologic Medical Hx - documentation analyst Hx of Blood Transfusion No 03/27/25 10:21 [...] confused, unrespo /Reproduction History /Reproductive History - equalizer operator: /Reproductive Hx- equalizer operator Hx Now Gestational Age (in weeks): EDC: [...] Craig Ni Signature: Date CC: ~ Signed [facility] Work Phone: 1(743) 596-176207-30-2025 Consult note [facility] Medical Records Department [address] [place] [address] Anesthesia Postop Eval II 04/01/25 1114 MR#: [id number] Acct: [id number] Name: SHADIA TURNER Rep #:[id number] : 1940 84 From: Craig Salinas PCP: Dr. Doroteo Dominguez MD Status:REG SDC Y Race: C Location: [place] [address]- Anesthesia Postop Eval I Sum Postop Eval [...] Craig Bachignsy Signature: Date CC: ~ Signed [facility]07-30-2025 History and physical note Author James Hwang [facility] Note Date/Time April 01, 2025 9:03 am [facility] Medical Records Department [address] [place] [address] History & Physical Exam 04/01/25900 MR#: [id number] Acct: [id number] Name: SHADIA TURNER Rep #:[id number] : 1940 84 From: James Hwang DO PCP: Dr. Doroteo Dominguez MD Status:[facility] Location: [place] [address] HPI - General General Date of Admission: [...] pain. She does admit to occasional constipation. [facility] Medical History Wears hearing aid Loss of [...] Doroteo Dominguez MD; James Hwang DO~ Signed [facility] Work Phone: 1(271) 973-251307-30-2025 Consult note [facility] Medical Records Department [address] [place] [address] Anesthesia Postop Eval I 04/01/25 1100 MR#: [id number] Acct: [id number] Name: SHAMIKA,SHAIDAAnn MCFARLAND Rep #:[id number] : 1940 84 From: Ryan Andujar PCP: Dr. Doroteo Dominguez MD Status:REG SDC Y Race: C Location: [place] [address] Anesthesia: Postop Eval I Current Vital Signs [...] completed: Yes 04/01/25 1101 > Date _ Ryna Andujar Cosigner Signature: Date CC: ~ Signed [facility]07-30-2025 Procedure note [facility] Medical Records Department [address] [place] [address] Colonoscopy Report MR#: [id number] Acct: [id number] Name: SHADIA TURNER Rep #:[id number] : 1940 84 From: James Hwang DO PCP: Dr. Doroteo Dominguez MD Status:REG [facility] Patient Name: Shadia Turner Procedure Date: 04/01/2025 [...] to age. Procedure Code(s): --- Professional --- 27197, Colonoscopy, flexible; with biopsy, single or multiple CPT copyright 2021 [employer]. All rights reserved. The codes documented in this report are preliminary and upon equipment or machinery cleaner review may be revised to meet current compliance requirements. James Hwang DO 04/01/2025 10:56:10 AM This report has been signed electronically. Number of Addenda: 0 Note Initiated On: 04/01/2025 10:19 AM 04/01/25 1056 Date _ James Hwang DO Cosigner Signature: Date (if indicated) CC: Dr. Doroteo Dominguez MD; James Hwang DO ~ Date Dictated: 04/01/25 1019 Date Transcribed: Machine Erector: RF Signed [facility]07-30-2025 Procedure note [facility] Medical Records Department [address] [place] [address] Provation Physician Letter MR#: [id number] Acct: [id number] Name: SHADIA TURNER Rep #:[id number] : 1940 84 From: James Hwang DO PCP: Dr. Doroteo Dominguez MD Status:REG [facility] 04/01/2025 Doroteo Dominguez [address] [place] [address] Re : Colonoscopy procedure for Shadia Turner [...] ~ Date Dictated: 04/01/25 1019 Date Transcribed: Machine Erector: RF Signed [facility]07-30-2025 Evaluation note* Diagnosis Onset Date Resolution Status Admit Date Encounter for screening colonoscopy acute April 01, 2025 8:46am [facility] Work Phone: 1(686) 531-146007-30-2025 Consult note [facility] Medical Records Department [address] [place] [address] Pre-Anesthesia Evaluation 04/01/25916 MR#: [id number] Acct: [id number] Name: SHADIA TURNER Rep #:[id number] : 1940 84 From: Craig Salinas PCP: Dr. Doroteo Dominguez MD Status:REG [facility] Y Race: C Location: [place] [address] ASA Classification* ASA Classification ASA Classification: 2 [...] Procedure(s): COLONOSCOPY Anesthesia History Anesthesia History - equalizer operator: Anesthesia History - equalizer operator Hx Hospitalization No 03/27/25 10:21 Any Problems [...] take am of surgery PONV PONV - equalizer operator: PONV - equalizer operator Female Yes 03/27/25 10:21 HX of Motion [...] 04/01/25 09:13 Respiratory Assessment Respiratory Assessment - equalizer operator: Respiratory Tract Infection Hx - equalizer operator Hx Respiratory Tract Infection No 03/27/25 10:21 STOP Sleep Apnea STOP Sleep Apnea - equalizer operator: STOP Sleep Apnea - equalizer operator Hx Hypertension No 03/27/25 10:21 Hx Sleep [...] Tobacco Use History Tobacco Use History - equalizer operator: Tobacco Use History - equalizer operator Tobacco Use Smoking Status Never smoker 03/27/25 10:21 Hx Tobacco Use No 03/27/25 10:21 Years Smoking Packs Smoked per Day Smoking Cessation Date was within the last 15 years Hx Smoking Cessation Date Hx Smoking Cessation No: NON SMOKER 03/27/25 10:21 Counseling Hematologic Medial History Hematologic Hx - equalizer operator: Hematologic 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 Doroteo Dominguez MD Status:[facility] Location: [place] [address] HPI - General General Date of Admission: [...] abdominal pain. She does admit tooccasional constipation. [facility] Medical History Wears hearing aid Loss of [...] Doroteo Dominguez MD; James Hwang DO~ Signed [facility]07-30-2025 [facility] Medical Records Department [address] [place] [address] History Physical Exam 04/01/25 0901 MR#: [id number] Acct: [id number] Name: SHADIA TURNER Rep #: [id number] : 1940 84 From: James Hwang DO PCP: Dr. Doroteo Dominguez MD Status:[facility] Location: [place] [address] HPI - General General Date of Admission: [...] pain. She does admit to occasional constipation. [facility] Medical History Wears hearing aid Loss of [...] applicable): CC: Dr. Doroteo Dominguez MD; James Friend, [facility] Evaluation note* Diagnosis Onset Date Resolution Status Admit Date URI (upper respiratory infection) ac janay November 02, 2024 1:18pm [facility] Work Phone: 1(249) 437-279802-21-[address] Quispe [facility] October 24, 2022 8:29pm Note Date/Time October 24, 2022 8:29pm [facility] Medical Records Department [address] [place] [address] Emergency Department Summary 10/24/22 MR#: [id number] Acct: [id number] Name: SHADIA TURNER Rep #:[id number] : [...] stool. No true exacerbating or alleviating factors. [facility] Medical History bunion surgery Hyperlipidemia Home Medications [...] % (Auto) 60.6 Lymph % (Auto) 20.7 [place] % (Auto) 16.4 H Eos % (Auto) [...] your Primary Care Provider. Call [facility] ([phone]) or report to the closest Emergency Room. Call 911 if necessary. 10/24/222028 <Electronically signed by Víctor Quispe MD> Cosigner Signature (if applicable): CC: Dr. Doroteo Dominguez MD ~ Signed [facility] Work Phone: Consult note Author Ryan Andujar [facility] Note Date/Time April 01, 2025 11:0 1am [facility] Medical Records Department [address] [place] [address] Anesthesia Postop Eval I 04/01/25 1100 MR#: [id number] Acct: [id number] Name: SHADIA TURNER Rep #:[id number] : 1940 84 From: Ryan Andujar PCP: Dr. Doroteo Dominguez MD Status:REG SDC Y Race: C Location: [place] [address] Anesthesia: Postop Eval I Current Vital Signs [...] Ryan Bachignsy Signature: Date CC: ~ Signed [facility] Work Phone: Consult note Author Craig Burdick [facility] Note Date/Time April 01, 2025 11:1 6am [facility] Medical Records Department [address] [place] [address] Anesthesia Postop Eval II 04/01/25 1114 MR#: [id number] Acct: [id number] Name: SHADIA TURNER Rep #:[id number] : 1940 84 From: Craig Salinas PCP: Dr. Doroteo Dominguez MD Status:REG [facility] Y Race: C Location: [place] [address] Anesthesia Postop Eval I Sum Postop Eval [...] MD Cosigner Signature: Date CC: ~ Signed [facility] Work Phone: Evaluation noteNo assessment information available [facility] Work Phone: Reason for referral (narrative)No reason for referral information availableWKettering [facility] Work Phone: Summary Purpose Family History No Family History Records Found Relationship Condition Age at Onset Recorded Date/T joann mother Hypertension Unknown Advance Directives No Advanced Directives Records Found Advance Directive Response Recorded Date/ Time Advance Directives Yes February 16 12:17pm Living Will Yes March 19, 2021 7:42pm Power of Ham Curer Yes March 19 7:42pm Advance Directive Response Recorded Date/ Time Advance Directives Yes February 16 12:17pm Living Will No October 24, 2 023 6:05pm Power of Ham Curer No October 24, 2022 6:05pm Advance Directive Response Recorded Date/ Time Advance Directives Yes February 16 1:17pm Living Will No October 24, 2 023 7:05pm Power of Ham Curer No October 24, 2022 7:05pm Advance Directive Response Recorded Date/ Time Living Will No October 24, 2 023 7:05pm Do you have a Healthcare Power of Ham Curer? No October 24, 2022 7:05pm Advance Directives Yes February 16 1:17pm Advance Directive Response Recorded Date/ Time Advance Directives Yes February 16 1:17pm Advance Directive Response Recorded Date/ Time Do you have a Healthcare Power of Ham Curer? Yes March 27, 2025 10:21am Name of Medical Power of Ham Curer OLIVIA March 27, 2025 10:21am Advance Directives [...] section and content) DATE CREATED AUTHOR 10/09/2020 [facility] DATE CREATED AUTHOR AUTHOR'S ORGANIZ ATION 04/01/2025 [facility] Goals (unrecognized section and content) Goals [...] September 29, 2024 Dr. Doroteo Dominguez MD Attending Provider [...] 2024 End: November 02, 2024 Krishna Carroll GOLD BLOWER, GOLD BLOWER-C Attending Provider Active S tart: November 02, [...] 13, 2025 End: February 13, 2025 Dr. oDroteo Dominguez MD Attending Provider Active [...] BE BASED ON THE PRIMARY CLINICAL RECORDS. [facility]. provides no warranty or guarantee of the accuracy or completeness of information in this document.
[2025-04-05 16:45] VITALS: BP 126/65; PULSE 86; RESP 14; O2SAT 95
[2025-04-05 16:45] LABS: Color, Urine Yellow (Yellow); Glucose, Dipstick Normal (Normal); Ketone-Dipstick Negative (Negative); Leukocyte Esterase-Dipstick 25 /ul (Negative); Nitrite-Dipstick Negative (Negative); Occult Blood-Urine 25 /ul (Negative); Protein-Dipstick 15 mg/dl (Negative); Specific Gravity, Urine 1.010 (1.002-1.030); Urine Bilirubin Dipstick Negative (Negative)
[2025-04-05 17:30] VITALS: BP 137/68; PULSE 80; RESP 14; O2SAT 96
--- NOTE | 2025-04-05 17:30 | ED.RN ---
LAB CALLED FOR OUTSTANDING URINE RESULTS, RESPONSE I AM RUNNING EVERYONE'S SECOND PART NOW
--- NOTE | 2025-04-05 17:30 | ED.RN ---
LAB CALLED FOR OUTSTANDING URINE RESULTS, RESPONSE I AM RUNNING EVERYONE'S SECOND PART NOW
[2025-04-05 17:35] LABS: Squamous Epithelial Cells - UA 0-5 SEEN /hpf (5-10)
[2025-04-05 17:36] LABS: Red Blood Cells-Urine 0-5 SEEN /hpf (0-5)
[2025-04-05 17:41] LABS: Calcium Oxalate Crystals Ur 1+ /hpf (<or=2+)
[2025-04-05 20:20] VITALS: BP 135/62; PULSE 81; RESP 16; TEMP 36.7; O2SAT 97
== END 2025-04-05 20:23 | disposition home or self-care (01) ==
PROVIDERS: Emergency Provider Emergency Medicine; PCP Family Medicine; Visit Provider Emergency Medicine
DX: R10.30 Lower abdominal pain, unspecified (principal); E78.5 Hyperlipidemia, unspecified; Z90.49 Acquired absence of other specified parts of digestive tract
CPT/HCPCS: 74177; 80053; 81001; 83690; 85025; 96361; 96374; 96375; 96376; 99283; Q9967; A4216; J2405

== ENCOUNTER → 2025-04-20 | Outpatient (CLI) | payer MEDICARE, SELFPAY ==
--- NOTE | 2025-04-20 11:09 | RAD_ITS ---
PROCEDURE: CERV SPINE OBL/FLEX/EXT COMP 04/20/2025 REASON FOR EXAM: CERVICAL STENOSIS OF SPINE TECHNIQUE: CERV SPINE OBL/FLEX/EXT COMP COMPARISON: None FINDINGS: Vertebrae: Mild anterior spondylosis at the C4-C5, C5-C6 and C6-C7 levels. disc spaces: Marked degree of disc space narrowing at the C4-C5, C5-C6 and 6 7 levels with facet joint osteoarthritis Alignment: Minimal anterior listhesis of C4 on C5. On the flexion views, there is minimal anterior listhesis of C3 on C4. soft tissues: No prevertebral soft tissue swelling. 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 Disclaimer: Reading Location: [id number]
--- OUTSIDE RECORDS SUMMARY | 2025-04-20 22:24 | XMS RPT_ITS | CCD ---
Author Organization [facility] CliniSymn Care Team Providers Care Strategic Accounts Manager Name Role Phone Dr. Doroteo Dominguez Primary Care Provider [phone] Doroteo Dominguez Referring Provider [phone] Dr. Doroteo Hess Attending Provider Dr. Doroteo Dominguez MD Primary Care Provider Dr. Doroteo Dominguez MD Attending Provider [phone] Doroteo Dominguez MD Referring Provider [phone] [facility] [employer]-CKrishna Attending Provider Dr. Doroteo Dominguez MD Primary Care Provider Dr. Doroteo Dominguez MD Referring Provider [phone] Doroteo Dominguez MD Attending Provider [phone] Doroteo Dominguez MD Primary Care Provider Dr. Doroteo Dominguez MD Attending Provider [phone] Doroteo Dominguez MD Referring Provider [phone] James Hwang DO Attending Provider Dr. James Hwang DO Other Provider Dr. Mehran Andujar DO Emergency Provider [phone] Mehran Andujar Attending Unavailable Dominguez, Doroteo Primary Care Unavailable Dominguez, Doroteo Referring Unavailable Dominguez, Doroteo Primary Care Unavailable Dominguez, Doroteo Attending Unavailable Dominguez, Doroteo Attending Unavailable Dominguez, Doroteo Primary Care Unavailable Dominguez, Doroteo Attending Unavailable Dominguez, Doroteo Referring Unavailable Dominguez, Doroteo Primary Care Unavailable Dominguez, Doroteo Attending Unavailable Dominguez, Doroteo Referring Unavailable Dominguez, Doroteo Primary Care Unavailable Dominguez, Doroteo Referring Unavailable Dominguez, Doroteo Primary Care Unavailable James Hwang Attending Unavailable Dominguez, Doroteo Attending Unavailable Dominguez, Doroteo Referring Unavailable Dominguez, Doroteo Primary Care Unavailable Dominguez, Doroteo Referring Unavailable Dominguez, Doroteo Attending Unavailable Dominguez, Doroteo Primary Care Unavailable Dominguez, Doroteo Referring Unavailable Dominguez, Doroteo Primary Care Unavailable [facility] [employer], Krishna Carrion Attending Unavailable Dominguez, Doroteo Referring Unavailable Dominguez, Doroteo Primary Care Unavailable Friend, James Consulting Unavailable Friend, James Attending Unavailable Allergies Allergy Classification Reported Allergen(s) Allergy Type Date of Onset Reaction(s) Facility (10 sources) Adhesive agent; Translations: [adhesive] Propensity to adverse reactions 1 [facility] (9 sources) Amoxicillin Drug Allergy 1 Diarrhea [facility] (9 sources) Clavulanate Drug Allergy 1 [facility] (9 sources) Iodine Compounds Allergy to substance 1 [facility] (9 sources) Latex Allergy to substance 1 [facility] (1 source) Amoxicillin Drug Allergy 5 [facility] (1 source) Clavulanate Drug Allergy 5 [facility] (1 source) Latex Drug allergy (disorder) 5 [facility] (1 source) Iodine and Iodide Containing Produc Drug allergy (disorder) 5 [facility] Medications Current Medications Medication Drug Class(es) Dates Sig (Normalized) Sig (Original) cholecalciferol 0.05 mg oral capsule (11 sources) Vitamin D Start: 03-27-2025 Cholecalciferol (Vitamin D3) (D3-2000) 50 mcg (2,000 unit) capsule Active 50 ug PO DAILY March 27, 2025 12:00am Start: 08-14-2018 End: 08-22-2024 take 1 tablet by mouth once daily Cholecalciferol (Vitamin D3) 1,000 UNIT tablet Discontinued 1000 U PO DAILY August 14, 2018 1:00am August 22, 2024 11:59am SUPPLEMENT dicyclomine hydrochloride 20 mg oral tablet (1 source) Anticholinergic Start: 04-05-2025 take 1 tablet by mouth three times daily Dicyclomine 20 mg tablet Active 20 mg PO THREE TIMES A DAY 0 April 05, 2025 12:00am lysine 500 mg oral tablet (2 sources) Start: 03-27-2025 take 1 tablet by mouth once daily Lysine (L-Lysine) 500 mg tablet Active 500 mg PO DAILY March 27, 2025 12:00am meclizine hydrochloride 25 mg oral tablet (13 sources) Antiemetic Start: 03-19-2021 End: 02-20-2024 take 1 tablet by mouth three times daily as needed for dizziness Meclizine 25 mg tablet Active 25 mg PO THREE TIMES A DAY as needed for dizziness February 20, 2024 12:00am Multivitamin (Multiple Vitamins) tablet (9 sources) Start: 06-10-2020 Multivitamin (Multiple Vitamins) tablet Active 1 {tbl} PO DAILY June 10, 2020 12:00am Start: 06-10-2020 take 1 tablet by myron th once daily Multivitamin (Multiple Vitamins) tablet Active 1 TABLET PO DAILY June 10, 2020 12:00am Start: 06-10-2020 take 1 tablet by myron th once daily Multivitamin (Multiple Vitamins) tablet Active 1 TABLET PO DAILY June 09, 2020 11:00pm ondansetron 4 mg disintegrating oral tablet (1 source) Serotonin-3 Receptor Antagonist Start: 04-05-2025 take 1 tablet by mouth every six hours as needed for nausea and vomiting Ondansetron 4 mg tablet,disintegrating Active 4 mg PO EVERY 6 HOURS as needed for nausea and vomiting 20 0 April 05, 2025 12:00am Completed/Discontinued Medications Medication Drug Class(es) Dates Sig (Normalized) Sig (Original) acetaminophen 500 mg oral tablet (9 sources) Start: 10-25-2018 End: 06-10-2020 take 2 tablets by mouth every six hours Acetaminophen 500 MG tablet Discontinued 1000 mg PO EVERY 6 HOURS 0 October 25, 2018 1:00am June 10, 2020 12:36pm Start: 10-25-2018 End: 06-10-2020 take 1000 mg by mouth every six hours Acetaminophen Discontinued 1000 MG PO EVERY 6 HOURS October 25, 2018 12:00am June 10, 2020 11:36am [id number] actuat albuterol 0.09 mg/actuat metered dose inhaler (4 sources) beta2-Adrenergic Agonist Start: 11-02-2024 End: 03-27-2025 Albuterol Sulfate 90 mcg/actuation HFA aerosol inhaler Discontinued 2 NMA INHALATION EVERY 4-6 HOURS as needed for shortness of breath or wheezing 6.7 0 November 02, 2024 1:00am March 27, 2025 10:18am aspirin 81 mg chewable tablet (18 sources) Platelet Aggregation Inhibitor, Nonsteroidal Anti-inflammatory Drug Start: 11-28-2014 End: 06-10-2020 take 1 tablet by mouth once daily Aspirin 81 MG tablet,chewable Discontinued 81 mg PO DAILY@0800 August 14, 2018 4:27pm June 10, 2020 12:36pm [facility] atorvastatin 10 mg oral tablet (9 sources) HMG-CoA Reductase Inhibitor Start: 06-10-2020 End: 02-20-2024 take 1 tablet by mouth once daily Atorvastatin 10 mg tablet Discontinued 10 mg PO DAILY June 10, 2020 12:00am February 20, 2024 10:54am azithromycin 250 mg oral tablet (4 sources) Macrolide Antimicrobial Start: 11-02-2024 End: 03-27-2025 Azithromycin (Zithromax Z-Pino) 250 mg tablet Discontinued 0 PO .COMPLEX 6 0 November 02, 2024 1:00am March 27, 2025 10:19am For 250 mg dose pack: take 500 mg today (day 1), then 250 mg for 4 days (days 2-5) PO ciprofloxacin 500 mg oral tablet (9 sources) Quinolone Antimicrobial Start: 08-26-2018 End: 09-05-2018 take 1 tablet by mouth twice daily Ciprofloxacin Hcl 500 MG tablet Discontinued 500 mg PO TWICE A DAY 20 10 0 August 26, 2018 1:00am September 04, 2018 1:00am September 05, 2018 1:11am hydrOXYzine pamoate 50 mg oral capsule (9 sources) Antihistamine Start: 10-26-2018 End: 06-10-2020 take 1 capsule by mouth four times daily as needed Hydroxyzine Pamoate 50 MG capsule Discontinued 50 mg PO 4 TIMES DAILY NEEDED as needed for Itching 40 0 October 26, 2018 1:00am June 10, 2020 12:36pm Magnesium (9 sources) Start: 08-14-2018 End: 08-26-2018 take 1 [...] amino acid chelate 100 mg oral tablet (9 sources) Start: 10-16-2018 End: 03-27-2025 take 1 tablet by mouth once daily Magnesium Amino Acid Chelate 100 MG tablet Discontinued 1 {tbl} PO DAILY October 16, 2018 1:00am March 27, 2025 10:19am SUPPLEMENT metroNIDAZOLE 500 mg oral tablet (9 sources) Nitroimidazole Antimicrobial Start: 10-23-2018 End: 10-25-2018 Metronidazole 500 MG tablet Discontinued 2 {tbl} PO DIRECTED October 23, 2018 1:00am October 25, 2018 7:11am antibiotic Start: 10-23-2018 End: 10-25-2018 Metronidazole Discontinued 2 TABLET PO DIRECTED October 23, 2018 12:00am October 25, 2018 6:11am Multivitamin With Folic Acid (Thera) 1 TABLET tablet (9 sources) Start: 02-16-2015 End: 08-26-2018 take 1 [...] 15, 2015 11:00pm August 26, 2018 7:48am Ypxfvtghpflx-Ss-Siix-Mineral s (One Daily Women's) 1 EACH tablet (9 sources) Start: 10-16-2018 End: 10-25-2018 take 1 tablet by mouth once daily Csafodmssgvx-Ph-Fetj-Minerals (One Daily Women's) 1 EACH tablet Discontinued 1 NMA PO DAILY October 16, 2018 1:00am October 25, 2018 7:12am SUPPLEMENT Start: 10-16-2018 End: 10-25-2018 take 1 tablet by mouth once daily Uvcgxcvxpshh-Yx-Vgmu-Minerals (One Daily Women's) 1 EACH tablet Discontinued 1 NMA PO DAILY October 16, 2018 1:00am October 25, 2018 7:12am Start: 10-16-2018 End: 10-25-2018 take 1 tablet by mouth once daily Sseuicfiarpw-Dz-Xqil-Minerals (One Daily Women's) 1 EACH tablet Discontinued 1 EACH PO DAILY October 16, 2018 1:00am October 25, 2018 7:12am Start: 10-16-2018 End: 10-25-2018 take 1 tablet by mouth once daily Vinwcookfjop-Aq-Nbsv-Minerals (One Daily Women's) 1 EACH tablet Discontinued 1 EACH PO DAILY October 16, 2018 12:00am October 25, 2018 6:12am neomycin sulfate 500 mg oral tablet (9 sources) Aminoglycoside Antibacterial Start: 10-23-2018 End: 10-25-2018 Neomycin 500 MG tablet Discontinued 2 {tbl} PO DIRECTED October 23, 2018 1:00am October 25, 2018 7:12am antibiotic Start: 10-23-2018 End: 10-25-2018 Neomycin Discontinued 2 TABL ET PO DIRECTED October 23, 2018 12:00am October 25, 2018 6:12am predniSONE 20 mg oral tablet (4 sources) Start: 11-02-2024 End: 11-07-2024 take 2 tablets by mouth once daily Prednisone 20 mg tablet Discontinued 40 mg PO daily 10 5 0 November 02, 2024 1:00am November 06, 2024 1:00am November 07, 2024 1:16am ubidecarenone 75 mg oral capsule (9 sources) Start: 06-10-2020 End: 02-20-2024 Coenzyme Q10 (Ultra Coq10) 75 mg capsule Discontinued 75 mg PO DAILY June 10, 2020 12:00am February 20, 2024 10:54am Problems Active Problems Problem Classification Problem Date Documented Da te Episodic/Chronic Abdominal pain (11 sources) Abdominal pain; Translations: [Unspecified abdominal pain] Onset: 04-17-2025 08-23-2018 Episodic Conditions associated with dizziness or vertigo (9 sources) Vertigo, acute onset with vomiting and inability to stand; Translations: [Dizziness and giddiness] 10-23-2018 Episodic Disorders of lipid metabolism (9 sources) Hyperlipidemia; Translations: [Hyperlipidemia, unspecified] 10-23-2018 Chronic Osteoporosis (1 source) Age-related osteoporosis without current pathological fracture; Translations: [Age-related osteoporosis without current pathological fracture] Onset: 02-19-2025 Chronic Other diseases of kidney and ureters (9 sources) Renal impairment; Translations: [Disorder of kidney and ureter, unspecified] 10-23-2018 Episodic Other gastrointestinal disorders (9 sources) Pneumoperitoneum; Translations: [Other specified disorders of peritoneum] 08-23-2018 Episodic Other gastrointestinal disorders (7 sources) Diarrhea; Translations: [Diarrhea, unspecified] 10-24-2022 Episodic Other nervous system disorders (9 sources) Ataxia; Translations: [Other lack of coordination] 10-23-2018 Episodic Other screening for suspected conditions (not mental disorders or infectious disease) (7 sources) Patient encounter status; Translations: [Encounter for screening for malignant neoplasm of colon] Onset: 11-26-2024 04-01-2025 Episodic Other upper respiratory infections (6 sources) Upper respiratory infection; Translations: [Acute upper respiratory infection, unspecified] 11-02-2024 Episodic Residual codes; unclassified (1 source) History of colectomy; Translations: [Acquired absence of other specified parts of digestive tract] 04-05-2025 Episodic Unclassified (1 source) Cough, unspecified; Translations: [Cough, unspecified] Onset: 11-02-2024 Viral infection (9 sources) Recurrent herpes simplex labialis; Translations: [Herpesviral vesicular dermatitis] 10-23-2018 Episodic Past or Other Problems Problem Classification Problem Date Documented Da te Episodic/Chronic Malaise and fatigue (1 source) Other fatigue; Translations: [Other fatigue] Onset: 08-04-2024 Episodic Other gastrointestinal disorders (1 source) Diarrhea, unspecified; Translations: [Diarrhea, unspecified] Onset: 11-01-2024 Episodic Unclassified (9 sources) bunion surgery 03-24-2022 Results Test Name Value Interpretation Reference Range Facility Abdomen/Pelvis W IV Cont ONL Yon 04-05-2025 Abdomen/Pelvis W IV Cont ONLY [facility] Imaging Services [address] [place] [address] Abdomen/Pelvis W IV Cont ONLY MR#: [id number] Acct: [id number] Name: SHADIA TURNER Rep #: [id number] : 1940 F 84 From: Ky Kaba MD PCP: Dr. Doroteo Dominguez MD Status: REG ER Study: Abdomen/Pelvis W IV Cont ONLY Date of Exam: Exam# [id number] Ordering Dr: Mehran Andujar DO PROCEDURE: ABDOMEN/PELVIS W IV CONT ONLY 04/05/2025 REASON FOR EXAM: ABD PAIN LOWER TECHNIQUE: ABDOMEN/PELVIS W IV CONT ONLY Coronal and Sagittal reconstruction series were provided. Intravenous contrast administered. One or more dose reduction techniques were used (e.g., Automated exposure control, adjustment of the mA and/or kV according to patient size, use of iterative reconstruction technique. RADIATION DOSE SUMMARY: Dose reduction strategies employed. COMPARISON: None FINDINGS: Liver, spleen, pancreas, adrenals are unremarkable. Lung bases are clear. Small hiatal hernia. Parapelvic simple cysts of the kidneys. Aorta is nonaneurysmal but demonstrates significant atheromatous vascular calcifications. Normal gallbladder. No adenopathy. No free fluid. No inguinal adenopathy. Diverticulosis without diverticulitis no dilated loops of bowel. Nonvisualization of the appendix. CT/Abdomen/Pelvis W IV Cont ONLY IMPRESSION: No gross CT abnormalities. Nonvisualization of the appendix. Chronic findings as above. [facility]: Dr. Doroteo Dominguez MD; Dr. Mehran Andujar DO Treasury Agent: Signed Normal [facility] Absolute lymphocyte countOrd ered By: Mehran Andujar on 04-05-2025 Lymphocytes Auto (Unsp spec) [#/Vol] 1.62 10*3/uL 0.83-4.51 [facility] Absolute neutrophil countOrd ered By: Mehran Andujar on 04-05-2025 Neutrophils (Bld) [#/Vol] 5.9 10*3/uL 2.0-7.7 [facility] Amorphous sediment detection in urine sediment by light microscopyOrdered By: Mehran Andujar on 04-05-2025 Amorphous sediment LM Ql (Urine sed) 2+ [facility] Anion gap in Serum or Plasma Ordered By: Mehran Andujar on 04-05-2025 Anion gap [Moles/Vol] 10 mmol/L 5-15 [facility] Automated lymphocyte count a s percentage of total leukocytesOrdered By: Mehran Andujar on 04-05-2025 Lymphocytes/100 WBC Auto (Unsp spec) 18.6 % Low 19-41 [facility] BUN/creatinine ratioOrdered By: Mehran Andujar on 04-05-2025 Urea nitrogen/Creatinine [Mass ratio] 26.2 mg/mg High 10-20 [facility] Basophil percentageOrdered B y: Mehran Andujar on 04-05-2025 Basophils/100 WBC (Bld) 0.8 % 0-1 [facility] Bilirubin Test strip Ql (U)O rdered By: Mehran Andujar on 04-05-2025 Bilirubin Ql (U) Negative Negative [facility] Bilirubin, totalOrdered By: Mehran Andujar on 04-05-2025 Bilirubin [Mass/Vol] 0.39 mg/dL 0.00-1.30 [facility] CBC W/Diff, Automatedon 08-0 Absolute Lymph 1.62 X10 3/uL Normal 0.83-4.51 [facility] Comment on above: Performed By: #### L 100.0100, L500.4050, L501.2450 ####[facility] [address] [place], [place], [id number] Absolute Neut 5.9 X10 3/uL Normal 2.0-7.7 [facility] Comment on above: Performed By: #### L 100.0100, L500.4050, L501.2450 ####[facility] [address] [place], [address] Basophils/100 WBC (Bld) 0.8 % Normal 0-1 [facility] Comment on above: Performed By: #### L 100.0100, L500.4050, L501.2450 ####[facility] [address] [place], [address] Eosinophils/100 WBC (Bld) 3.2 % Normal 0-5 [facility] Comment on above: Performed By: #### L 100.0100, L500.4050, L501.2450 ####[facility] [address] [place], [address] Erythrocyte distribution width (RBC) [Ratio] 13.3 % Normal 11.6-14.6 [facility] Comment on above: Performed By: #### L 100.0100, L500.4050, L501.2450 ####[facility] [address] [place], [address] Hematocrit (Bld) [Volume fraction] 44.4 % Normal 37-47 [facility] Comment on above: Performed By: #### L 100.0100, L500.4050, L501.2450 ####[facility] [address] [place], [address] Hemoglobin (Bld) [Mass/Vol] 15.2 g/dL High 12.0-15.0 [facility] Comment on above: Performed By: #### L 100.0100, L500.4050, L501.2450 ####[facility] [address] [place], [address] IG% 0.900 Normal 0.0-0.9 [facility] Comment on above: Result Comment: IG% - Immature Granulocytes (promyelocytes, myelocytes and metamyelocytes) > 1% indicates that a LEFT SHIFT is Present. Performed By: #### L 100.0100, L500.4050, L501.2450 ####[facility] [address] [place], [address] Lymphocytes/100 WBC (Bld) 18.6 % Low 19-41 [facility] Comment on above: Performed By: #### L 100.0100, L500.4050, L501.2450 ####[facility] [address] [place], [address] MCH (RBC) [Entitic mass] 30.5 pg Normal 27.0-32.0 [facility] Comment on above: Performed By: #### L 100.0100, L500.4050, L501.2450 ####[facility] [address] [place], [address] MCHC (RBC) [Mass/Vol] 34.2 g/dL Normal 32-36 [facility] Comment on above: Performed By: #### L 100.0100, L500.4050, L501.2450 ####[facility] [address] [place], [address] MCV (RBC) [Entitic vol] 89.0 fL Normal 81-99 [facility] Comment on above: Performed By: #### L 100.0100, L500.4050, L501.2450 ####[facility] [address] [place], [address] Monocytes/100 WBC (Bld) 9.4 % Normal 0-10 [facility] Comment on above: Performed By: #### L 100.0100, L500.4050, L501.2450 ####[facility] [address] [place], [address] Neutrophils/100 WBC (Bld) 67.1 % Normal 47-70 [facility] Comment on above: Performed By: #### L 100.0100, L500.4050, L501.2450 ####[facility] [address] [place], [address] Nucleated RBC (Bld) [#/Vol] 0 10*3/uL Normal 0-5 [facility] Comment on above: Performed By: #### L 100.0100, L500.4050, L501.2450 ####[facility] [address] [place], [address] Platelet mean volume (Bld) [Entitic vol] 10.8 fL Normal 6.2-12.0 [facility] Comment on above: Performed By: #### L 100.0100, L500.4050, L501.2450 ####[facility] [address] [place], [address] Platelets (Bld) [#/Vol] 208 10*3/uL Normal 150-450 [facility] Comment on above: Performed By: #### L 100.0100, L500.4050, L501.2450 ####[facility] [address] [place], [address] RBC (Bld) [#/Vol] 4.99 10*6/uL Normal 4.2-5.4 [facility] Comment on above: Performed By: #### L 100.0100, L500.4050, L501.2450 ####[facility] [address] [place], [address] RDW SD 43.6 fl Normal 35.1-43.9 [facility] Comment on above: Performed By: #### L 100.0100, L500.4050, L501.2450 ####[facility] [address] [place], [address] WBC (Bld) [#/Vol] 8.7 10*3/uL Normal 4.4-11.0 [facility] Comment on above: Performed By: #### L 100.0100, L500.4050, L501.2450 ####[facility] [address] [place], [address] Calcium oxalate crystals det ection in urine sediment by light microscopyOrdered By: Mehran Andujar on 04-05-2025 Calcium oxalate crystals LM Ql (Urine sed) 1+ /hpf [facility] Carbon dioxide, total [Moles /volume] in Central venous bloodOrdered By: Mehran Andujar on 04-05-2025 CO2 [Moles/Vol] 27.1 mmol/L 21.0-32.0 [facility] Chloride assayOrdered By: Sudhakar Andujar on 04-05-2025 Chloride [Moles/Vol] 105 mmol/L 98-108 [facility] Comprehensive Metabolic Prof ilon 04-05-2025 Albumin [Mass/Vol] 3.8 g/dL Normal 3.4-4.8 [facility] Comment on above: Performed By: #### L 100.0100, L500.4050, L501.2450 ####[facility] [address] [place], [address] Albumin/Globulin [Mass ratio] 1.4 {ratio} Normal 0.9-2.4 [facility] Comment on above: Performed By: #### L 100.0100, L500.4050, L501.2450 ####[facility] [address] [place], [address] ALK PHOS 86 U/L Normal 35-104 [facility] Comment on above: Performed By: #### L 100.0100, L500.4050, L501.2450 ####[facility] [address] [place], [address] ALT [Catalytic activity/Vol] 43 U/L High <=34 [facility] Comment on above: Performed By: #### L 100.0100, L500.4050, L501.2450 ####[facility] [address], [address] AST [Catalytic activity/Vol] 75 U/L High <=31 [facility] Comment on above: Performed By: #### L 100.0100, L500.4050, L501.2450 ####[facility] [address] [place], [address] Bilirubin [Mass/Vol] 0.39 mg/dL Normal 0.00-1.30 [facility] Comment on above: Performed By: #### L 100.0100, L500.4050, L501.2450 ####[facility] [address] [place], [address] BUN/CRE 26.2 RATIO High 10-20 [facility] Comment on above: Performed By: #### L 100.0100, L500.4050, L501.2450 ####[facility] [address] [place], [address] Calcium [Mass/Vol] 9.5 mg/dL Normal 7.6-11.0 [facility] Comment on above: Performed By: #### L 100.0100, L500.4050, L501.2450 ####[facility] [address] [place], [address] Chloride [Moles/Vol] 105 mmol/L Normal 98-108 [facility] Comment on above: Performed By: #### L 100.0100, L500.4050, L501.2450 ####[facility] [address] [place], [address] CO2 [Moles/Vol] 27.1 mmol/L Normal 21.0-32.0 [facility] Comment on above: Performed By: #### L 100.0100, L500.4050, L501.2450 ####[facility] [address] [place], [address] Creatinine [Mass/Vol] 1.03 mg/dL Normal 0.70-1.20 [facility] Comment on above: Performed By: #### L 100.0100, L500.4050, L501.2450 ####[facility] [address] [place], [address] ECRCL 33.26 ml/min Low 50-250 [facility] Comment on above: Performed By: #### L 100.0100, L500.4050, L501.2450 ####[facility] [address] [place], [address] GAP 10 Normal 5-15 [facility] Comment on above: Performed By: #### L 100.0100, L500.4050, L501.2450 ####[facility] [address] [place], [address] GFR/1.73 sq M.predicted among non-blacks MDRD (S/P/Bld) [Vol rate/Area] 54 mL/min/{1.73_m2} Low >60 [facility] Comment on above: Result Comment: mL/m in/1.73m2 CKD-EPI Creatinine Equation (2020) Performed By: #### L 100.0100, L500.4050, L501.2450 ####[facility] [address] [place], [address] Globulin (S) [Mass/Vol] 2.7 g/dL Normal 2.2-4.2 [facility] Comment on above: Performed By: #### L 100.0100, L500.4050, L501.2450 ####[facility] [address] [place], [address] Glucose [Mass/Vol] 133 mg/dL High 70-99 [facility] Comment on above: Performed By: #### L 100.0100, L500.4050, L501.2450 ####[facility] [address] [place], [address] Potassium [Moles/Vol] 4.2 mmol/L Normal 3.3-5.1 [facility] Comment on above: Performed By: #### L 100.0100, L500.4050, L501.2450 ####[facility] [address] [place], [address] Sodium [Moles/Vol] 143 mmol/L Normal 133-145 [facility] Comment on above: Performed By: #### L 100.0100, L500.4050, L501.2450 ####[facility] [address] [place], [address] T PROT 6.5 g/dL Normal 5.9-8.4 [facility] Comment on above: Performed By: #### L 100.0100, L500.4050, L501.2450 ####[facility] [address] [place], [address] Urea nitrogen [Mass/Vol] 27 mg/dL High 4-19 [facility] Comment on above: Performed By: #### L 100.0100, L500.4050, L501.2450 ####[facility] [address] [place], [address] Emergency Department Summary on 04-05-2025 Emergency Department Summary [facility] Medical Records Department [address] [place] [address] Emergency Department Summary 04/05/25 MR#: [id number] Acct: [id number] Name: SHADIA TURNER Rep #: [id number] : 1940 84 From: Mehran Andujar DO PCP: Dr. Doroteo Dominguez MD Status:REG ER Location: ED HPI History of Present Illness Chief Complaint: Abd Pain Narrative Narrative: Patient is 84-year-old female with a past medical history of colectomy after perforation who presented to the emergency department the chief complaint of abdominal pain. Patient states that she had a colonoscopy on Sunday by Dr. Hwang and notes that she took a nap earlier today woke up with lower abdominal pain. Patient states that her pain was in her lower abdomen wrapping to her back prompting her to come here for further evaluation management. Patient did note that she has not been around anybody ill recently and felt well before going to take a nap today. [facility] Medical History Wears hearing aid Loss of hearing Wears partial dentures Wears glasses History of steroid therapy Osteoporosis Non-smoker History of echocardiogram Colonoscopy planned Hyperlipidemia bunion surgery Home Medications ???Medication ???Instructions ???Recorded ???Last Taken ???Type multivitamin (Multiple Vitamins 1 tab PO DAILY 06/10/20 03/31/25 H istory tablet) meclizine 25 mg tablet 25 mg PO TID PRN dizziness 4 Unknown History cholecalciferol (vitamin D3) 50 50 mcg PO DAILY 03/27/25 03/31/25 History mcg (2,000 unit) capsule (D3-2000) lysine 500 mg tablet (L-Lysine) 500 mg PO DAILY 03/27/25 03/31/25 History dicyclomine 20 mg tablet 20 mg PO TID #20 tabs 04/05/25 Unk nown Rx ondansetron 4 mg disintegrating 4 mg PO Q6H PRN nausea and 5 Unknown Rx tablet vomiting #20 tabs Allergy/AdvReac Type Severity Reaction Status Date / Time Iodine and Iodide Containing Allergy Rash Verified 04/05/25 15:19 Produc latex Allergy Rash Verified 04/05/25 15:19 adhesive AdvReac Rash Verified 04/05/25 15:19 amoxicillin (From Augmentin) AdvReac Diarrhea Verified 04/05/25 15:19 clavulanic acid (From AdvReac Diarrhea Verified 04/05/25 15:19 Augmentin) Family History Mother Hypertension Surgical History [...] Yes ROS ROS ED ROS Narrative Constitutional: Denies any fevers, chills, headaches Cardiovascular: Denies chest pain Respiratory: Denies coughing wheezing shortness of breath Abdomen: Complains of abdominal pain as noted above denies nausea vomiting : Denies any urinary symptoms Neurological: Denies any numbness, wheeze, tingling Musculoskeletal: Complains of abdominal pain rating to her back as noted above Skin: Denies any rashes or lesions EXAM Physical Exam Narrative Exam Narrative: General: Patient lying in bed resting comfortably did not appear to be in acute distress Head: Atraumatic, normocephalic Eyes: PERRL bilaterally, EOMI bilateral, no conjunctival injection noted Neck: Soft, supple, trachea midline Cardiovascular: Regular rate and rhythm Respiratory: Clear to auscultation bilaterally Abdomen: Soft, nondistended, nontender to palpation Extremities: +5/5 strength noted in the bilateral upper and lower extremities, radial pulses +2/4 in the bilateral extremities Neurological: Patient follow commands knew that she was at [facility] year is 2024 Skin: Warm, dry, tact no rashes or lesions noted Const Vital Signs: 04/05/25 15:16 04/05/25 15:19 04/05/25 16:04 Temperature 98 F Temperature Source Oral Pulse Rate 77 69 Respiratory Rate 16 16 Blood Pressure 120/64 144/55 H Blood Pressure Mean 82 84 Pulse Ox 96 96 Oxygen Delivery Method Room Air Room Air 04/05/25 16:45 04/05/25 17:30 Temperature Temperature Source Pulse Rate 86 80 Respiratory Rate 14 14 Blood Pressure 126/65 H 137/68 H Blood Pressure Mean 85 91 Pulse Ox 95 96 Oxygen Delivery Method Room Air Room Air MDM MDM MDM Narrative Medical decision making narrative: Patient is a 84-year-old female who presented to the emergency department the chief complaint of abdominal pain. On the (more content not included)... Normal [facility] Eosinophil percentageOrdered By: Mehran Andujar on 04-05-2025 Eosinophils/100 WBC (Bld) 3.2 % 0-5 [facility] Erythrocyte distribution wid th ratioOrdered By: Mehran Andujar on 04-05-2025 Erythrocyte distribution width (RBC) [Ratio] 13.3 % 11.6-14.6 [facility] Erythrocyte distribution wid th standard deviationOrdered By: Mehran Andujar on 04-05-2025 Erythrocyte distribution width (RBC) [Ratio] 43.6 fl 35.1-43.9 [facility] Glomerular filtration rate ( GFR) estimation/1.73 sq m using serum, plasma, or whole bOrdered By: Mheran Andujar on 04-05-2025 GFR/1.73 sq M.predicted among non-blacks MDRD (S/P/Bld) [Vol rate/Area] 54 mL/min/{1.73_m2} Low >60 [facility] Comment on above: mL/min/1.73m2 CKD-EP I Creatinine Equation (2020) Hematocrit Auto (Bld) [Volum e fraction]Ordered By: Mehran Andujar on 04-05-2025 Hematocrit (Bld) [Volume fraction] 44.4 % 37-47 [facility] Hemoglobin measurementOrdere d By: Mehran Andujar on 04-05-2025 Hemoglobin (Bld) [Mass/Vol] 15.2 g/dL High 12.0-15.0 [facility] Immature granulocytes/100 WB C Auto (Bld)Ordered By: Mehran Andujar on 04-05-2025 Immature granulocytes/100 WBC (Bld) 0.900 % 0.0-0.9 [facility] Comment on above: IG% - Immature Granu locytes (promyelocytes, myelocytes and metamyelocytes) > 1% indicates that a LEFT SHIFT is Present. Ketones Test strip Ql (U)Ord ered By: Mehran Andujar on 04-05-2025 Ketones Ql (U) Negative Negative [facility] Laboratory - Chemistry and C hemistry - challengeOrdered By: Mehran Andujar on 04-05-2025 AST [Catalytic activity/Vol] 75 U/L High <32 [facility] Lipaseon 04-05-2025 Lipase [Catalytic activity/Vol] 60 U/L Normal 13-75 [facility] Comment on above: Result Comment: Dong tay note: LIPASE revised reference range effective 22. New Lipase methodology. Expected to produce lower values than the previous assay method. NEW Reference Range: 13 - 75 U/L Performed By: #### L 100.0100, L500.4050, L501.2450 ####[facility] [address] [place], [address] Lipase measurementOrdered By : Mehran Andujar on 04-05-2025 Lipase [Catalytic activity/Vol] 60 U/L 13-75 [facility] Comment on above: Please note:LIPASE r evised reference range effective 22. New Lipase methodology. Expected to produce lower values than the previous assay method. NEW Reference Range: 13 - 75 U/L MCV (mean corpuscular volume ) determinationOrdered By: Mehran Andujar on 04-05-2025 MCV (RBC) [Entitic vol] 89.0 fL 81-99 [facility] Mean corpuscular hemoglobin (MCH) determinationOrdered By: Mehran Andujar on 04-05-2025 MCH (RBC) [Entitic mass] 30.5 pg 27.0-32.0 [facility] Mean corpuscular hemoglobin concentration (MCHC) determinationOrdered By: Mehran Andujar on 04-05-2025 MCHC (RBC) [Mass/Vol] 34.2 g/dL 32-36 [facility] Mean platelet volume determi nationOrdered By: Mehran Andujar on 04-05-2025 Platelet mean volume (Bld) [Entitic vol] 10.8 fL 6.2-12.0 [facility] Microscopic analysis of urin e for red blood cells (RBC)Ordered By: Mehran Andujar on 04-05-2025 Microscopic analysis of urine for red blood cells (RBC) 0-5 SEEN /hpf 0-5 [facility] Monocyte percentageOrdered B y: Mehran Andujar on 04-05-2025 Monocytes/100 WBC (Bld) 9.4 % 0-10 [facility] Mucus LM Ql (Urine sed)Order ed By: Mehran Andujar on 04-05-2025 Mucus Ql (Urine sed) 0 SEEN /hpf [facility] Neutrophil percentageOrdered By: Mehran Andujar on 04-05-2025 Neutrophils/100 WBC (Bld) 67.1 % 47-70 [facility] Nitrite Test strip Ql (U)Ord ered By: Mehran Andujar on 04-05-2025 Nitrite Ql (U) Negative Negative [facility] Nucleated red blood cell per centageOrdered By: Mehran Andujar on 04-05-2025 Nucleated RBC/100 WBC (Bld) [Ratio] 0 % 0-5 [facility] Platelet countOrdered By: Sudhakar Andujar on 04-05-2025 Platelets (Bld) [#/Vol] 208 10*3/uL 150-450 [facility] Potassium measurement (mass/ volume)Ordered By: Mehran Andujar on 04-05-2025 Potassium (Unsp spec) [Mass/Vol] 4.2 mmol/L 3.3-5.1 [facility] Protein Test strip Ql (U)Ord ered By: Mehran Andujar on 04-05-2025 Protein Ql (U) 15 mg/dl High Negative [facility] RBC Auto (Bld) [#/Vol]Ordere d By: Mehran Andujar on 04-05-2025 RBC (Bld) [#/Vol] 4.99 10*6/uL 4.2-5.4 [facility] Serum creatinine measurement (mass/volume)Ordered By: Mehran Andujar on 04-05-2025 Creatinine [Mass/Vol] 1.03 mg/dL 0.70-1.20 [facility] Serum globulin measurementOr dered By: Mehran Andujar on 04-05-2025 Globulin (S) [Mass/Vol] 2.7 g/dL 2.2-4.2 [facility] Serum glucose measurement (m ass/volume)Ordered By: Mehran Andujar on 04-05-2025 Glucose [Mass/Vol] 133 mg/dL High 70-99 [facility] Serum or plasma alanine raines otransferase (ALT) measurementOrdered By: Mehran Andujar on 04-05-2025 ALT [Catalytic activity/Vol] 43 U/L High <35 [facility] Serum or plasma albumin cole urement (mass/volume)Ordered By: Mehran Andujar on 04-05-2025 Albumin [Mass/Vol] 3.8 g/dL 3.4-4.8 [facility] Serum or plasma albumin/glob ulin mass ratioOrdered By: Mehran Andujar on 04-05-2025 Albumin/Globulin [Mass ratio] 1.4 {ratio} 0.9-2.4 [facility] Serum or plasma alkaline mali sphatase measurementOrdered By: Mehran Andujar on 04-05-2025 ALP [Catalytic activity/Vol] 86 U/L 35-104 [facility] Serum or plasma calcium cole urement (mass/volume)Ordered By: Mehran Andujar on 04-05-2025 Calcium [Mass/Vol] 9.5 mg/dL 7.6-11.0 [facility] Serum or plasma urea nitroge n measurement (mass/volume)Ordered By: Mehran Andujar on 04-05-2025 Urea nitrogen [Mass/Vol] 27 mg/dL High 4-19 [facility] Sodium levelOrdered By: Maria Isabel Andujar on 04-05-2025 Sodium [Moles/Vol] 143 mmol/L 133-145 [facility] Squamous epithelial cells de tection in urine sediment by light microscopyOrdered By: Mehran Andujar on 04-05-2025 Epithelial cells.squamous LM Ql (Urine sed) 0-5 SEEN /hpf 5-10 [facility] Total proteinOrdered By: Kayla Andujar on 04-05-2025 Protein [Mass/Vol] 6.5 g/dL 5.9-8.4 [facility] Urinalysis, Completeon 04-05 AMORPHOUS 2+ Normal [facility] Comment on above: Order Comment: CLEAN CATCH Performed By: #### L 400.0001 #### [facility] [address] [place], [place], [id number] CA OX CRYSTAL 1+ /hpf Normal [facility] Comment on above: Order Comment: CLEAN CATCH Performed By: #### L 400.0001 #### [facility] [address] [place], [place], [id number] BACTERIA RARE Normal None Seen [facility] Comment on above: Order Comment: CLEAN CATCH Performed By: #### L 400.0001 #### [facility] [address] [place], [address] RBC 0-5 SEEN Normal 0-5 [facility] Comment on above: Order Comment: CLEAN CATCH Performed By: #### L 400.0001 #### [facility] [address] [place], [address] EPI,SQUAMOUS 0-5 SEEN Normal 5-10 [facility] Comment on above: Order Comment: CLEAN CATCH Performed By: #### L 400.0001 #### [facility] [address] [place], [address] BILIRUBIN URINE Negative Normal Negative [facility] Comment on above: Order Comment: CLEAN CATCH Performed By: #### L 400.0001 #### [facility] [address] [place], [address] Clarity (U) Cloudy Normal Clear [facility] Comment on above: Order Comment: CLEAN CATCH Performed By: #### L 400.0001 #### [facility] [address] [place], [address] Color (U) Yellow Normal Yellow [facility] Comment on above: Order Comment: CLEAN CATCH Performed By: #### L 400.0001 #### [facility] [address] [place], [address] GLUCOSE, UR Normal Normal Normal [facility] Comment on above: Order Comment: CLEAN CATCH Performed By: #### L 400.0001 #### [facility] [address] [place], [address] KETONE UR Negative Normal Negative [facility] Comment on above: Order Comment: CLEAN CATCH Performed By: #### L 400.0001 #### [facility] [address] [place], [address] LEUK ESTERASE 25 /ul Abnormal Negative [facility] Comment on above: Order Comment: CLEAN CATCH Performed By: #### L 400.0001 #### [facility] [address] [place], [address] Nitrite Ql (U) Negative Normal Negative [facility] Comment on above: Order Comment: CLEAN CATCH Performed By: #### L 400.0001 #### [facility] [address] [place], [address] OCCULT BLOOD-UR 25 /ul Abnormal Negative [facility] Comment on above: Order Comment: CLEAN CATCH Performed By: #### L 400.0001 #### [facility] [address] [place], [address] pH UR 7.0 Normal 5.0 - 8.0 [facility] Comment on above: Order Comment: CLEAN CATCH Performed By: #### L 400.0001 #### [facility] [address] [place], [address] PROT DIPSTX 15 mg/dl Abnormal Negative [facility] Comment on above: Order Comment: CLEAN CATCH Performed By: #### L 400.0001 #### [facility] [address] [place], [address] SP.GR. DIPSTX 1.010 Normal 1.002-1.03 0 [facility] Comment on above: Order Comment: CLEAN CATCH Performed By: #### L 400.0001 #### [facility] [address] [place], [address] UROBILI Normal Normal Normal [facility] Comment on above: Order Comment: CLEAN CATCH Performed By: #### L 400.0001 #### [facility] [address] [place], [address] Mucus Ql (Urine sed) 0 SEEN Normal [facility] Comment on above: Order Comment: CLEAN CATCH Performed By: #### L 400.0001 #### [facility] [address] [place], [address] WBC 0 SEEN Normal 0-5 [facility] Comment on above: Order Comment: CLEAN CATCH Performed By: #### L 400.0001 #### [facility] [address] [place], [address] Urine clarityOrdered By: Kayla Andujar on 04-05-2025 Clarity (U) Cloudy Clear [facility] Urine color determinationOrd ered By: Mehran Andujar on 04-05-2025 Color (U) Yellow Yellow [facility] Urine glucose detectionOrder ed By: Mehran Andujar on 04-05-2025 Glucose Ql (U) Normal mg/dl Normal [facility] Urine leukocyte esterase det ection by dipstickOrdered By: Mehran Andujar on 04-05-2025 Leukocyte esterase Test strip Ql (U) 25 /ul High Negative [facility] Urine pHOrdered By: Mehran montez on 04-05-2025 pH (U) 7.0 [pH] 5.0 - 8.0 [facility] Urine sediment bacteria coun t by microscopy (number/high power field)Ordered By: Mehran Andujar on 04-05-2025 Bacteria LM.HPF (Urine sed) [#/Area] RARE /hpf None Seen [facility] Urine specific gravity measu rementOrdered By: Mehran Andujar on 04-05-2025 Specific gravity (U) [Rel density] 1.010 1.002-1.03 0 [facility] Urine urobilinogen measureme ntOrdered By: Mehran Andujar on 04-05-2025 Urobilinogen Ql (U) Normal mg/dl Normal [facility] White blood cell (WBC) count Ordered By: Mehran Andujar on 04-05-2025 WBC (Bld) [#/Vol] 8.7 10*3/uL 4.4-11.0 [facility] White blood cell countOrdere d By: Mehran Andujar on 04-05-2025 White blood cell count 0 SEEN /hpf 0-5 [facility] Colonoscopy Reporton 025 Colonoscopy Report [facility] Medical Records Department [address] [place] [address] Colonoscopy Report MR#: [id number] Acct: [id number] Name: SHADIA TURNER Rep #: [id number] : 1940 84 From: James Hwang DO PCP: Dr. Doroteo Dominguez MD Status:REG [facility] Patient Name: Shadia Turner Procedure Date: 04/01/2025 [...] to age. Procedure Code(s): --- Professional --- 36529, Colonoscopy, flexible; with biopsy, single or multiple CPT copyright 2021 [employer]. All rights reserved. The codes documented in this report are preliminary and upon hospital coder review may be revised to meet current compliance requirements. James Hwang DO 04/01/2025 10:56:10 AM This report has been signed electronically. Number of Addenda: 0 Note Initiated On: 04/01/2025 10:19 AM 04/01/25 1056 Date James Hwang DO Cosigner Signature: Date (if indicated) CC: Dr. Doroteo Dominguez MD; James Hwang DO Date Dictated: 04/01/25 1019 Date Transcribed: Treasury Agent: MARIEL Signed [facility] MR/OP.Mirtha 04-01-2025 MR/OP.[facility] Medical Records Department [address] [place] [address] Provation Physician Letter MR#: [id number] Acct: [id number] Name: SHADIA TURNER Rep #: [id number] : 1940 84 From: James Hwang DO PCP: Dr. Doroteo Dominguez MD Status:[facility] 04/01/2025 [address] [facility] [address] [place] [address] Re : Colonoscopy procedure for Shadia Turner [...] been signed electronically. 04/01/25 1056 Date James Lopezignsy Signature: Date (if indicated) CC: Dr. Doroteo Dominguez MD; James Hwang DO Date Dictated: 04/01/25 1019 Date Transcribed: Treasury Agent: RF Signed [facility] MR/POSTOP.Hawa 04-01-2025 MR/POSTOP.[facility] Medical Records Department [address] [place] [address] Anesthesia Postop Eval I 04/01/25 1100 MR#: [id number] Acct: [id number] Name: SHADIA TURNER Rep #: [id number] : 1940 84 From: Ryan Andujar PCP: Dr. Doroteo Dominguez MD Status:REG SD Y Race: C Location: [place] [address] Anesthesia: Postop Eval I Current Vital Signs [...] 1 completed: Yes 04/01/25 1101 Date Ryan Bachignsy Signature: Date CC: Signed Normal [facility] MR/IXDMHXNY8ts 04-01-2025 [facility] Medical Records Department [address] [place] [address] Anesthesia Postop Eval II 04/01/25 1114 MR#: [id number] Acct: [id number] Name: SHADIA TURNER Rep #: [id number] : 1940 84 From: Craig Burdick MD PCP: Dr. Doroteo Dominguez MD Status:REG [facility] Y Race: C Location: [place] [address] Anesthesia Postop Eval I Sum Postop Eval [...] No 04/01/25 1116 Date [facility] Signature: Date CC: Signed Normal [facility] Surgery Specimen Level Junito 04-01-2025 Surgery Specimen Level IV Patient Age/Sex Location Account Attending Physician SHADIA TURNER 84/F EN [id number] James Hwang DO Specimen: [id number] Received: 04/01/25 Status: PHYLLIS Haney Num: [id number] Spec Type: COLON BX Subm Dr: James Hwang DO HEADER OPERATION: Colonoscopy with biopsy PRE-OP DIAGNOSIS: Encounter for screening colonoscopy TISSUE SUBMITTED: A- Ascending colon polyp MICROSCOPIC DIAGNOSIS A. Ascending colon, polyp, biopsy: - Tubular adenoma. MICROSCOPIC DESCRIPTION Slides are reviewed. GROSS DESCRIPTION A. Received in fixative is one container labeled with the patient's name and designated Ascending colon polyp. The specimen consists of one irregular fragment of light sam soft tissue that measures 0.4 cm. The specimen is totally submitted in one cassette. IA 04/01/2025 CPT:48519 Patient Age/Sex Location Account Attending Physician SHADIA TURNER 84/F EN [id number] James DO Jaiden Signed (signature on file) Dr. Bridgett Das MD 04/05/25 1311 Normal [facility] Comment on above: Performed By: #### P SUIV ####[facility] [address] [place], [address] Bone density reportOrdered B y: Dominic Haywood on 11-18-2024 Study report Skeletal system DXA [facility] Imaging Services [address] [place], [place] [address] Dexa Bone Density Study MR#: [id number] Acct: [id number] Name: SHADIA TURNER Rep #: [id number] : 1940 F 84 From: Elmer Haywood MD PCP: Dr. Doroteo Dominguez MD Status: [facility] Study:Dexa Bone Density Study Date of Exam: 11/18/24 Exam# [id number] Ordering Dr: Sy Dominguez MD PROCEDURE: DEXA [...] density since the previous examination. Reading Location: [place] [address] CC: Dr. Doroteo Dominguez MD ~ Treasury Agent: Signed [facility] Breast imaging reportOrdered By: Lorie Iglesias on 11-18-2024 Study report [facility] Imaging Services [address] [place] [address] SCRN MAMM (CAD)W/JIM BILAT MR#: [id number] Acct: [id number] Name: SHADIA TURNER Rep #: [id number] : 1940 F 84 From: Bambi Iglesias MD PCP: Dr. Doroteo Dominguez MD Status: REG CLI Study:SCRN MAMM (CAD)W/JIM BILAT Date of Exa m: 11/18/24 Exam# [id number] Ordering Dr: Sy Dominugez MD PROCEDURE: SCRN MAMM (CAD)W/JIM BILAT REASON [...] of the results by letter. Reading Location: [facility] CC: Dr. Doroteo Dominguez MD ~ Treasury Agent: Signed [facility] Dexa Bone Density Studyon Dexa Bone Density Study [facility] Imaging Services [address] [place], [place] [address] Dexa Bone Density Study MR#: [id number] Acct: [id number] Name: SHADIA TURNER Rep #: [id number] : 1940 F 84 From: Dominic tirado MD PCP: Dr. Doroteo Dominguez MD Status: REG CLI Study: Dexa Bone Density Study Date of Exam: 11/18/24 Exam# [id number] Ordering Dr: Doroteo Dominguez MD PROCEDURE: DEXA [...] density since the previous examination. Reading Location: [place] [address] CC: Dr. Doroteo Dominguez MD Treasury Agent: Signed Normal [facility] SCRN MAMM (CAD)W/JIM BILATo n 11-18-2024 SCRN MAMM (CAD)W/JIM BILAT [facility] Imaging Services [address] [place], [place] [address] SCRN MAMM (CAD)W/JIM BILAT MR#: [id number] Acct: [id number] Name: SHADIA TURNER Rep #: [id number] : 1940 F 84 From: Lorie Iglesias MD PCP: Dr. Doroteo Dominguez MD Status: [facility] Study: SCRN MAMM (CAD)W/JIM BILAT Date of Exam: 11/01 04/27 Exam# [id number] Ordering Dr: Doroteo Dominguez MD PROCEDURE: SCRN [...] of the results by letter. Reading Location: [facility] CC: Dr. Doroteo Dominguez MD Treasury Agent: Signed Normal [facility] - Microbiology an d Antimicrobial susceptibilityOrdered By: Krishna Carroll on 11-02-2024 SARS-CoV-2 (COVID-19) RNA ROZ+probe Ql (Unsp spec) Not detected [facility] No Panel InformationOrdered By: Krishna Carroll on 11-02-2024 Influenza Types A,B Rapid (Clinic) Negative [facility] Office Visit Reporton 2024 Office Visit Report [facility] [address] [place] [address] OFFICE VISIT Date of Service: 11/02/24 MR#: [id number] Acct: [id number] Patient: SHADIA TURNER Rep #: [id number] : 1940 Provider: MAURISIO zabala Age/Sex: 84/F Location: [facility] [place] [place] Status: Signed Intake Vital Signs 08/22/24 11:01 [...] 90 mcg/actuation 2 puff inhalation Q4-6H PRN 10/2811/02/24 Rx aerosol inhaler shortness of breath [...] Neck Neck: normal (more content not included)... [facility] L3410.9999on 10-07-2024 [facility]. [facility] Comment on above: Order Comment: 33518 4STOOL CULTURE RT Result Comment: TEST RESULTS LIMITS Stool Culture Salmonella/Shigella Screen Final report Result 1 No Salmonella or Shigella recovered. Campylobacter Culture Final report Result 1 No Campylobacter species isolated. E coli Shiga Toxin EIA Negative Negative TESTING PERFORMED AT [facility]. ORIGINAL REPORT ON FILE IN LAB CONTAINS ADDITIONAL TEST SITE INFORMATION. Performed By: #### L 3410.9999 ####[facility] [address] [place], [place], [address] ANTINUCLEAR ANTIBODIES DIREC Ton 09-30-2024 PERLITA,DIRECT Negative Normal Negative [facility] Comment on above: Order Comment: Order Date: 09/26/24Order Info: 269- - PERLITA Result Comment: Perf ormed at: [facility] [address] [id number] Corporate Security Manager: Aster Villegas MD, Phone: [phone] Performed at: [address] [id number] Corporate Security Manager: Juanjo Brown PhD, Phone: [phone] Performed By: #### L 8578.2671, L101.4800, L500.4050, L501.5610, L501.2730, L3410.8630 ####[facility] [address] [place], [place], [address] L5500.0550on 09-30-2024 BEEF <0.10 Normal Class 0 [facility] Comment on above: Order Comment: Order Date: 09/26/24Order Info: 269- - PERLITA Performed By: #### L 5500.0550 ####[facility] [address] [place], [place], [address] CHOCOLATE <0.10 Normal Class 0 [facility] Comment on above: Order Comment: Order Date: 09/26/24Order Info: 269- - PERLITA Performed By: #### L 5500.0550 ####[facility] [address] [place], [address] CODFISH <0.10 Normal Class 0 [facility] Comment on above: Order Comment: Order Date: 09/26/24Order Info: 0270 - PERLITA Performed By: #### L 5500.0550 ####[facility] [address] [place], [address] COMMENT Comment Normal . [facility] Comment on above: Order Comment: Order Date: 09/26/24Order Info: 269-09 - PERLITA Result Comment: Shaq crouch of Specific IgE Class Description of Class ----- < 0.10 0 Negative 0.10 - 0.31 0/I Equivocal/Low 0.32 - 0.55 I Low 0.56 - 1.40 II Moderate 1.41 - 3.90 III High 3.91 - 19.00 IV Very High 19.01 - 100.00 V Very High >100.00 Very High Performed By: #### L 5500.0550 ####[facility] [address] [place], [address] CORN <0.10 Normal Class 0 [facility] Comment on above: Order Comment: Order Date: 09/26/24Order Info: 027- - PERLITA Performed By: #### L 5500.0550 ####[facility] [address] [place], [address] EGG, WHOLE <0.10 Normal Class 0 [facility] Comment on above: Order Comment: Order Date: 09/26/24Order Info: 027- - PERLITA Performed By: #### L 5500.0550 ####[facility] [address] [place], [address] MILK (COW) <0.10 Normal Class 0 [facility] Comment on above: Order Comment: Order Date: 09/26/24Order Info: 0-1 - PERLITA Performed By: #### L 5500.0550 ####[facility] [address] [place], [address] MUSSELS <0.10 Normal Class 0 [facility] Comment on above: Order Comment: Order Date: 09/26/24Order Info: 0-1 - PERLITA Performed By: #### L 5500.0550 ####[facility] [address] [place], [address] PEANUT <0.10 Normal Class 0 [facility] Comment on above: Order Comment: Order Date: 09/26/24Order Info: 0-1 - PERLITA Performed By: #### L 5500.0550 ####[facility] [address] [place], [address] PORK <0.10 Normal Class 0 [facility] Comment on above: Order Comment: Order Date: 09/26/24Order Info: 0- - PERLITA Performed By: #### L 5500.0550 ####[facility] [address] [place], [address] SALMON <0.10 Normal Class 0 [facility] Comment on above: Order Comment: Order Date: 09/26/24Order Info: 0-1 - PERLITA Performed By: #### L 5500.0550 ####[facility] [address] [place], [address] SHRIMP <0.10 Normal Class 0 [facility] Comment on above: Order Comment: Order Date: 09/26/24Order Info: 0-1 - PERLITA Performed By: #### L 5500.0550 ####[facility] [address] [place], [address] SOYBEAN <0.10 Normal Class 0 [facility] Comment on above: Order Comment: Order Date: 09/26/24Order Info: 027 - PERLITA Performed By: #### L 5500.0550 ####[facility] [address] [place], [address] TUNA <0.10 Normal Class 0 [facility] Comment on above: Order Comment: Order Date: 09/26/24Order Info: 269-09 - PERLITA Performed By: #### L 5500.0550 ####[facility] [address] [place], [address] WHEAT <0.10 Normal Class 0 [facility] Comment on above: Order Comment: Order Date: 09/26/24Order Info: 269-09 - PERLITA Performed By: #### L 5500.0550 ####[facility] [address] [place], [address] pH, Stoolon 09-30-2024 pH, STOOL 7.5 Normal 7.0-7.5 [facility] Comment on above: Order Comment: Test( s) 434986-sV, Stoolwas developed and its performance characteristicsdetermined by [employer]. It has not been cleared or approvedby the Food and Drug Administration. Result Comment: Perf ormed at: - [address] [id number] Corporate Security Manager: Juanjo Brown PhD, Phone: [phone] Performed By: #### L 7000.0600 ####[facility] [address] [place], [address] Celiac AB,Comprehensiveon ANTIGLIADIN IGA 4 units Normal 0-19 [facility] Comment on above: Order Comment: Order Date: 09/26/24Order Info: 0751-1 - CELAB Result Comment: Nega tive 0 - 19 Weak Positive 20 - 30 Moderate to Strong Positive >30 Performed By: #### L 3100.5475, L101.9900, L500.4050, L501.6710, L501.2450, L3410.2350 ####[facility] [address] [place], [address] ANTIGLIADIN IGG 2 units Normal 0-19 [facility] Comment on above: Order Comment: Order Date: 09/26/24Order Info: 075-1 - CELAB Result Comment: Nega tive 0 - 19 Weak Positive 20 - 30 Moderate to Strong Positive >30 Performed By: #### L 3100.5475, L101.9900, L500.4050, L501.6710, L501.2450, L3410.2350 ####[facility] [address] [place], [place], [address] ENDOMYSIAL IGA Negative Normal Negative [facility] Comment on above: Order Comment: Order Date: 09/26/24Order Info: 075- - CELAB Performed By: #### L 3100.5475, L101.9900, L500.4050, L501.6710, L501.2450, L3410.2350 ####[facility] [address] [place], [place], [id number] IMMUNOGLOB A QN 162 mg/dL Normal 64-422 [facility] Comment on above: Order Comment: Order Date: 09/26/24Order Info: 0751-1 - CELAB Result Comment: Perf ormed at: [facility] [address] [id number] Corporate Security Manager: Juanjo Brown PhD, Phone: [phone] Performed By: #### L 3100.5475, L101.9900, L500.4050, L501.6710, L501.2450, L3410.2350 ####[facility] [address] [place], [place], [address] tTG IGA <2 Normal 0-3 [facility] Comment on above: Order Comment: Order Date: 09/26/24Order Info: 075-1 - CELAB Result Comment: Nega tive 0 - 3 Weak Positive 4 - 10 Positive >10 Tissue Transglutaminase (tTG) has been identified as the endomysial antigen. Studies have demonstr- ated that endomysial IgA antibodies have over 99% specificity for gluten sensitive enteropathy. Performed By: #### L 3100.5475, L101.9900, L500.4050, L501.6710, L501.2450, L3410.2350 ####[facility] [address] [place], [place], [address] tTG IGG <2 Normal 0-5 [facility] Comment on above: Order Comment: Order Date: 09/26/24Order Info: 0751-1 - CELAB Result Comment: Nega tive 0 - 5 Weak Positive 6 - 9 Positive >9 Performed By: #### L 3100.5475, L101.9900, L500.4050, L501.6710, L501.2450, L3410.2350 ####[facility] [address] [facility] [address] [place], [place], [address] No Panel InformationOrdered By: Doroteo Dominguez on 09-29-2024 Miscellaneous Test See comment [facility] Comment on above: TEST RESULTS LIMITSS tool Culture Salmonella/Shigella Screen Final report Result 1 No Salmonella or Shigella recovered. Campylobacter Culture Final report Result 1 No Campylobacter species isolated. E coli Shiga Toxin EIA Negative Negative TESTING PERFORMED AT [facility]. ORIGINAL REPORT ON FILE IN LAB CONTAINS ADDITIONAL TEST SITE INFORMATION. pH (Stl)Ordered By: Doroteo philippe on 09-29-2024 Stool pH 7.5 7.0-7.5 [facility] Comment on above: Performed at: [facility] [place] [id number] Director: Juanjo Brown PhD, Phone: [phone] PERLITA serumOrdered By: Doroteo arteaga on 09-26-2024 Anti-Nuclear Antibody Screen Negative Negative [facility] Comment on above: Performed at: BN - [facility] [address] [place], [place] [id number] Director: Aster Villegas MD, Phone: [phone] at: CB - [facility] [address] [place], [place] [id number] Director: Juanjo Brown PhD, Phone: [phone] Albumin to globulin ratioOrd ered By: Doroteo Dominguez on 09-26-2024 Albumin/Globulin [Mass ratio] 0.9 {ratio} 0.9-2.4 [facility] Beef IgE Qn (S)Ordered By: Mayito Dominguez on 09-26-2024 Beef Allergen (RAST) <0.10 kU/L Class 0 [facility] Bilirubin, totalOrdered By: Doroteo Dominguez on 09-26-2024 Bilirubin [Mass/Vol] 0.60 mg/dL 0.20-1.00 [facility] Comment on above: For patients on eltr ombopag therapy, use of Dimension Julian TBIL is not recommended. Blood urea nitrogen (BUN)/cr eatinine ratioOrdered By: Doroteo Dominguez on 09-26-2024 Urea nitrogen/Creatinine [Mass ratio] 15.7 mg/mg 10-20 [facility] C-reactive protein measureme nt by high sensitivity methodOrdered By: Doroteo Dominguez on 09-26-2024 C-Reactive Protein Extended Range < 2.90 mg/L 0.0-3.0 [facility] Comment on above: C-Reactive Protein ( CRP) provides useful information for thediagnosis, therapy and monitoring of inflammatory processesand associated diseases. For the evaluation of Relative Riskfor Cardiovascular Disease, a High Sensitivity CRP (HSCRP)should be ordered. CRPon 09-26-2024 C-REACTIVE PROT < 2.90 Normal 0.0-3.0 [facility] Comment on above: Order Comment: Order Date: 09/26/24Order Info: 0786-1 - CMPOrder Info: 3040-3 - LIPASEOrder Info: [id number] - CRP Result Comment: C-Re active Protein (CRP) provides useful information for the diagnosis, therapy and monitoring of inflammatory processes and associated diseases. For the evaluation of Relative Risk for Cardiovascular Disease, a High Sensitivity CRP (HSCRP) should be ordered. Performed By: #### L 3100.5475, L101.9900, L500.4050, L501.6710, L501.2450, L3410.2350 ####[facility] [address] [place], [place], [address] Carbon dioxide measurementOr dered By: Doroteo Dominguez on 09-26-2024 CO2 [Moles/Vol] 25.0 mmol/L 21.0-32.0 [facility] Chloride measurementOrdered By: Doroteo Dominguez on 09-26-2024 Chloride [Moles/Vol] 110 mmol/L High 98-107 [facility] Chocolate IgE Qn (S)Ordered By: Doroteo Dominguez on 09-26-2024 Chocolate Allergen (RAST) <0.10 kU/L Class 0 [facility] Codfish IgE Qn (S)Ordered By : Doroteo Dominguez on 09-26-2024 Codfish Allergen (RAST) <0.10 kU/L Class 0 [facility] Comprehensive Metabolic Prof ilon 09-26-2024 Albumin [Mass/Vol] 3.4 g/dL Normal 3.2-5.0 [facility] Comment on above: Order Comment: Order Date: 09/26/24Order Info: 0786-1 - CMPOrder Info: 3040-3 - LIPASEOrder Info: [id number] - CRP Performed By: #### L 3100.5475, L101.9900, L500.4050, L501.6710, L501.2450, L3410.2350 ####[facility] [address] [place], [place], [address] Albumin/Globulin [Mass ratio] 0.9 {ratio} Normal 0.9-2.4 [facility] Comment on above: Order Comment: Order Date: 09/26/24Order Info: 0786-1 - CMPOrder Info: 3 - LIPASEOrder Info: [id number] - CRP Performed By: #### L 3100.5475, L101.9900, L500.4050, L501.6710, L501.2450, L3410.2350 ####[facility] [address] [place], [address] ALK P 63 U/L Normal 45-117 [facility] Comment on above: Order Comment: Order Date: 09/26/24Order Info: 0786-1 - CMPOrder Info: 3043 - LIPASEOrder Info: [id number] - CRP Performed By: #### L 3100.5475, L101.9900, L500.4050, L501.6710, L501.2450, L3410.2350 ####[facility] [address] [place], [address] ALT [Catalytic activity/Vol] 26 U/L Normal 13-56 [facility] Comment on above: Order Comment: Order Date: 09/26/24Order Info: 0786-1 - CMPOrder Info: 3043 - LIPASEOrder Info: [id number] - CRP Performed By: #### L 3100.5475, L101.9900, L500.4050, L501.6710, L501.2450, L3410.2350 ####[facility] [address] [place], [address] AST [Catalytic activity/Vol] 22 U/L Normal 15-37 [facility] Comment on above: Order Comment: Order Date: 09/26/24Order Info: 0786-1 - CMPOrder Info: 304-3 - LIPASEOrder Info: [id number] - CRP Performed By: #### L 3100.5475, L101.9900, L500.4050, L501.6710, L501.2450, L3410.2350 ####[facility] [address] [place], [address] Bilirubin [Mass/Vol] 0.60 mg/dL Normal 0.20-1.00 [facility] Comment on above: Order Comment: Order Date: 09/26/24Order Info: 0786-1 - CMPOrder Info: 3040-3 - LIPASEOrder Info: [id number] - CRP Result Comment: For patients on eltrombopag therapy, use of Dimension Julian TBIL is not recommended. Performed By: #### L 3100.5475, L101.9900, L500.4050, L501.6710, L501.2450, L3410.2350 ####[facility] [address] [place], [address] BUN/CRE 15.7 RATIO Normal 10-20 [facility] Comment on above: Order Comment: Order Date: 09/26/24Order Info: 0786-1 - CMPOrder Info: 3040-3 - LIPASEOrder Info: [id number] - CRP Performed By: #### L 3100.5475, L101.9900, L500.4050, L501.6710, L501.2450, L3410.2350 ####[facility] [address] [place], [address] CA,Total 9.1 mg/dL Normal 8.5-10.1 [facility] Comment on above: Order Comment: Order Date: 09/26/24Order Info: 0786-1 - CMPOrder Info: 3040-3 - LIPASEOrder Info: [id number] - CRP Performed By: #### L 3100.5475, L101.9900, L500.4050, L501.6710, L501.2450, L3410.2350 ####[facility] [address] [place], [address] Chloride [Moles/Vol] 110 mmol/L High 98-107 [facility] Comment on above: Order Comment: Order Date: 09/26/24Order Info: 0786-1 - CMPOrder Info: 3040-3 - LIPASEOrder Info: [id number] - CRP Performed By: #### L 3100.5475, L101.9900, L500.4050, L501.6710, L501.2450, L3410.2350 ####[facility] [address] [place], [address] CO2 [Moles/Vol] 25.0 mmol/L Normal 21.0-32.0 [facility] Comment on above: Order Comment: Order Date: 09/26/24Order Info: 0786-1 - CMPOrder Info: 3040-3 - LIPASEOrder Info: [id number] - CRP Performed By: #### L 3100.5475, L101.9900, L500.4050, L501.6710, L501.2450, L3410.2350 ####[facility] [address] [place], [address] Creatinine [Mass/Vol] 1.08 mg/dL High 0.55-1.02 [facility] Comment on above: Order Comment: Order Date: 09/26/24Order Info: 0786-1 - CMPOrder Info: 304-3 - LIPASEOrder Info: [id number] - CRP Result Comment: The validity of the calculated GFR GFRAA in patients over 70 years has not been determined. Clinical correlation is essential. Performed By: #### L 3100.5475, L101.9900, L500.4050, L501.6710, L501.2450, L3410.2350 ####[facility] [address] [place], [address] EST GFR - AA 62 mL/min Normal >60 [facility] Comment on above: Order Comment: Order Date: 09/26/24Order Info: 0786-1 - CMPOrder Info: 3040-3 - LIPASEOrder Info: [id number] - CRP Result Comment: Afri can [place] GFR Calc Performed By: #### L 3100.5475, L101.9900, L500.4050, L501.6710, L501.2450, L3410.2350 ####[facility] [address] [place], [address] GAP 6 Normal 5-15 [facility] Comment on above: Order Comment: Order Date: 09/26/24Order Info: 0786-1 - CMPOrder Info: 3040-3 - LIPASEOrder Info: [id number] - CRP Performed By: #### L 3100.5475, L101.9900, L500.4050, L501.6710, L501.2450, L3410.2350 ####[facility] [address] [place], [place], [address](102) GFR/1.73 sq M.predicted among non-blacks MDRD (S/P/Bld) [Vol rate/Area] 51 mL/min/{1.73_m2} Low >60 [facility] Comment on above: Order Comment: Order Date: 09/26/24Order Info: 0786-1 - CMPOrder Info: 3040-3 - LIPASEOrder Info: [id number] - CRP Result Comment: Non- GFR Calc Performed By: #### L 3100.5475, L101.9900, L500.4050, L501.6710, L501.2450, L3410.2350 ####[facility] [address] [place], [address] Globulin (S) [Mass/Vol] 3.9 g/dL Normal 2.2-4.2 [facility] Comment on above: Order Comment: Order Date: 09/26/24Order Info: 0786-1 - CMPOrder Info: 3040-3 - LIPASEOrder Info: [id number] - CRP Performed By: #### L 3100.5475, L101.9900, L500.4050, L501.6710, L501.2450, L3410.2350 ####[facility] [address] [place], [address] Glucose [Mass/Vol] 94 mg/dL Normal 74-106 [facility] Comment on above: Order Comment: Order Date: 09/26/24Order Info: 0786-1 - CMPOrder Info: 3040-3 - LIPASEOrder Info: [id number] - CRP Performed By: #### L 3100.5475, L101.9900, L500.4050, L501.6710, L501.2450, L3410.2350 ####[facility] [address] [place], [address] Potassium [Moles/Vol] 3.9 mmol/L Normal 3.5-5.1 [facility] Comment on above: Order Comment: Order Date: 09/26/24Order Info: 86-1 - CMPOrder Info: 304-3 - LIPASEOrder Info: [id number] - CRP Performed By: #### L 3100.5475, L101.9900, L500.4050, L501.6710, L501.2450, L3410.2350 ####[facility] [address] [place], [address] Sodium [Moles/Vol] 141 mmol/L Normal 136-145 [facility] Comment on above: Order Comment: Order Date: 09/26/24Order Info: 86-1 - CMPOrder Info: 3 - LIPASEOrder Info: [id number] - CRP Performed By: #### L 3100.5475, L101.9900, L500.4050, L501.6710, L501.2450, L3410.2350 ####[facility] [address] [place], [address] T PROT 7.3 g/dL Normal 6.4-8.2 [facility] Comment on above: Order Comment: Order Date: 09/26/24Order Info: 86-1 - CMPOrder Info: 304-3 - LIPASEOrder Info: [id number] - CRP Performed By: #### L 3100.5475, L101.9900, L500.4050, L501.6710, L501.2450, L3410.2350 ####[facility] [address] [facility] [address] Urea nitrogen [Mass/Vol] 17 mg/dL Normal 7-18 [facility] Comment on above: Order Comment: Order Date: 09/26/24Order Info: 0786-1 - CMPOrder Info: 3040-3 - LIPASEOrder Info: [id number] - CRP Performed By: #### L 3100.5475, L101.9900, L500.4050, L501.6710, L501.2450, L3410.2350 ####[facility] [address] [place], [place], [address] [place] IgE Qn (S)Ordered By: Mayito Dominguez on 09-26-2024 [place] Allergen (RAST) <0.10 kU/L Class 0 [facility] Cow milk IgE Qn (S)Ordered B y: Doroteo Dominguez on 09-26-2024 Cow's Milk Allergen <0.10 kU/L Class 0 [facility] Deamidated gliadin IgA antib elise assayOrdered By: Doroteo Dominguez on 09-26-2024 Anti-Gliadin IgA Antibody 4 units 0-19 [facility] Comment on above: Negative 0 - 19 Weak Positive 20 - 30 Moderate to Strong Positive >30 Deamidated gliadin IgG antib elise assayOrdered By: Doroteo Dominguez on 09-26-2024 Anti-Gliadin IgG Antibody 2 units 0-19 [facility] Comment on above: Negative 0 - 19 Weak Positive 20 - 30 Moderate to Strong Positive >30 Endomysial IgA antibody assa yOrdered By: Doroteo Dominguez on 09-26-2024 Endomysial IgA Antibody Negative Negative [facility] Erythrocyte Sed Rateon 09-26 SED RATE 4 mm/hr Normal 0-30 [facility] Comment on above: Order Comment: Order Date: 09/26/24Order Info: [id number] - SED Performed By: #### L 3100.5475, L101.9900, L500.4050, L501.6710, L501.2450, L3410.2350 ####[facility] [address] [place], [address] Erythrocyte sedimentation ra teOrdered By: Doroteo Dominguez on 09-26-2024 ESR (Bld) [Velocity] 4 mm/h 0-30 [facility] Estimated glomerular filtrat ion rate (GFR) AmericanOrdered By: Doroteo Dominguez on 09-26-2024 Estimated GFR (MDRD) Amer 62 mL/min >60 [facility] Comment on above: GFR Calc Glomerular filtration rate ( GFR) estimationOrdered By: Doroteo Dominguez on 09-26-2024 Estimated GFR (MDRD) Non-Af Amer 51 mL/min Low >60 [facility] Comment on above: Non- GFR Calc Glucose measurementOrdered B y: Doroteo Dominguez on 09-26-2024 Glucose [Mass/Vol] 94 mg/dL 74-106 [facility] Laboratory - Chemistry and C hemistry - challengeOrdered By: Doroteo Dominguez on 09-26-2024 AST [Catalytic activity/Vol] 22 U/L 15-37 [facility] Lipaseon 09-26-2024 Lipase [Catalytic activity/Vol] 34 U/L Normal 13-75 [facility] Comment on above: Order Comment: Order Date: 09/26/24Order Info: 0786-1 - CMPOrder Info: 3040-3 - LIPASEOrder Info: [id number] - CRP Result Comment: Dong tay note: LIPASE revised reference range effective 22. New Lipase methodology. Expected to produce lower values than the previous assay method. NEW Reference Range: 13 - 75 U/L Performed By: #### L 3100.5475, L101.9900, L500.4050, L501.6710, L501.2450, L3410.2350 ####[facility] [address] [place], [address] Lipase measurementOrdered By : Doroteo Dominguez on 09-26-2024 Lipase [Catalytic activity/Vol] 34 U/L 13-75 [facility] Comment on above: Please note:LIPASE r evised reference range effective 22. New Lipase methodology. Expected to produce lower values than the previous assay method. NEW Reference Range: 13 - 75 U/L No Panel InformationOrdered By: Doroteo Dominguez on 09-26-2024 Tissue Transglutaminase IgG Ab <2 U/mL 0-5 [facility] Comment on above: Negative 0 - 5 Weak Positive 6 - 9 Positive >9 Peanut IgE Qn (S)Ordered By: Doroteo Dominguez on 09-26-2024 Peanut Allergen (RAST) <0.10 kU/L Class 0 [facility] Pork IgE Qn (S)Ordered By: Mayito Dominguez on 09-26-2024 Pork Allergen (RAST) <0.10 kU/L Class 0 [facility] Potassium measurementOrdered By: Doroteo Dominguez on 09-26-2024 Potassium [Moles/Vol] 3.9 mmol/L 3.5-5.1 [facility] [place] IgE Qn (S)Ordered By: Doroteo Dominguez on 09-26-2024 [place] Allergen IgE Antibody <0.10 kU/L Class 0 [facility] Serum anion gap measurementO rdered By: Doroteo Dominguez on 09-26-2024 Anion gap [Moles/Vol] 6 mmol/L 5-15 [facility] Serum globulin measurementOr dered By: Doroteo Dominguez on 09-26-2024 Globulin (S) [Mass/Vol] 3.9 g/dL 2.2-4.2 [facility] Serum immunoglobulin A measu rementOrdered By: Doroteo Dominguez on 09-26-2024 Immunoglobulin A 162 mg/dL 64-422 [facility] Comment on above: Performed at: [place] [id number] Director: Juanjo Brown PhD, Phone: [phone] Serum mussel specific IgE an tibody assayOrdered By: Doroteo Dominguez on 09-26-2024 Mussel Allergen IgE Antibody <0.10 kU/L Class 0 [facility] Serum or plasma alanine raines otransferase (ALT) measurementOrdered By: Doroteo Dominguez on 09-26-2024 ALT [Catalytic activity/Vol] 26 U/L 13-56 [facility] Serum or plasma albumin cole urement (mass/volume)Ordered By: Doroteo Dominguez on 09-26-2024 Albumin [Mass/Vol] 3.4 g/dL 3.2-5.0 [facility] Serum or plasma alkaline mali sphatase measurementOrdered By: Doroteo Dominguez on 09-26-2024 ALP [Catalytic activity/Vol] 63 U/L 45-117 [facility] Serum or plasma calcium cole urement (mass/volume)Ordered By: Doroteo Dominguez on 09-26-2024 Calcium [Mass/Vol] 9.1 mg/dL 8.5-10.1 [facility] Serum or plasma creatinine m easurement (mass/volume)Ordered By: Doroteo Dominguez on 09-26-2024 Creatinine [Mass/Vol] 1.08 mg/dL High 0.55-1.02 [facility] Comment on above: The validity of the calculated GFR & GFRAA in patients over 70 years has not been determined. Clinical correlation is essential. Serum or plasma urea nitroge n measurement (mass/volume)Ordered By: Doroteo Dominguez on 09-26-2024 Urea nitrogen [Mass/Vol] 17 mg/dL 7-18 [facility] Serum shrimp specific IgE an tibody assayOrdered By: Doroteo Dominguez on 09-26-2024 Shrimp Allergen <0.10 kU/L Class 0 [facility] Service comment (Unsp spec) [Interp]Ordered By: Doroteo Dominguez on 09-26-2024 RAST Comment Comment . [facility] Comment on above: Levels of Specific [...] on 09-26-2024 Sodium [Moles/Vol] 141 mmol/L 136-145 [facility] Soybean IgE Qn (S)Ordered By : Doroteo Dominguez on 09-26-2024 Soybean Allergen (RAST) <0.10 kU/L Class 0 [facility] Total proteinOrdered By: Georgia Dominguez on 09-26-2024 Protein [Mass/Vol] 7.3 g/dL 6.4-8.2 [facility] Tuna IgE Qn (S)Ordered By: Mayito Dominguez on 09-26-2024 Tuna Allergen (RAST) <0.10 kU/L Class 0 [facility] Wheat IgE Qn (S)Ordered By: Doroteo Dominguez on 09-26-2024 Wheat Allergen (RAST) <0.10 kU/L Class 0 [facility] Whole Egg IgE Qn (S)Ordered By: Doroteo Dominguez on 09-26-2024 Egg Whole Allergen <0.10 kU/L Class 0 [facility] tTG IgA Qn (S)Ordered By: Sy Dominguez on 09-26-2024 Tissue Transglutaminase IgA Ab <2 U/mL 0-3 [facility] Comment on above: Negative 0 - 3 Weak Positive 4 - 10 Positive >10 Tissue Transglutaminase (tTG) has been identified as the endomysial antigen. Studies have demonstr- ated that endomysial IgA antibodies have over 99% specificity for gluten sensitive enteropathy. Lyme Screen W/Reflex WBon LYME SCREEN Ab Negative Normal Negative [facility] Comment on above: Order Comment: Order Date: 07/10/24Order Info: [id number] - PROELOrder Info: [id number] - LYMS Result Comment: Lyme [...] to 14 days is recommended. Performed at: - [address] [id number] Corporate Security Manager: Juanjo Brown PhD, Phone: [phone] Performed By: #### L 505.6910, L3100.4970, L3100.0857, L7000.5300, L501.9520, L101.9900, L503.0105, L506.0250 ####[facility] [address] [place], [place], [phone] Protein Electroph, Son 07-14 Albumin [Mass/Vol] 3.4 g/dL Normal 2.9-4.4 [facility] Comment on above: Order Comment: Order Date: 07/10/24Order Info: [id number] - PROELOrder Info: [id number] - LYMS Performed By: #### L 505.7010, L3100.3450, L3100.5475, L7000.5300, L501.9520, L101.9900, L503.0105, L506.0250 ####[facility] [address] [place], [place], [phone]) Albumin/Globulin [Mass ratio] 1.2 {ratio} Normal 0.7-1.7 [facility] Comment on above: Order Comment: Order Date: 07/10/24Order Info: 006- - PROELOrder Info: [id number] - LYMS Performed By: #### L 505.7010, L3100.3450, L3100.5475, L7000.5300, L501.9520, L101.9900, L503.0105, L506.0250 ####[facility] [address] [place], [place], [phone](267) ALPHA-1 GLOBUL 0.2 g/dL Normal 0.0-0.4 [facility] Comment on above: Order Comment: Order Date: 07/10/24Order Info: [id number] - PROELOrder Info: [id number] - LYMS Performed By: #### L 505.7010, L3100.3450, L3100.5475, L7000.5300, L501.9520, L101.9900, L503.0105, L506.0250 ####[facility] [address] [place], [place], [phone](453) ALPHA-2 GLOBUL 0.6 g/dL Normal 0.4-1.0 [facility] Comment on above: Order Comment: Order Date: 07/10/24Order Info: [id number] - PROELOrder Info: [id number] - LYMS Performed By: #### L 505.7010, L3100.3450, L3100.5475, L7000.5300, L501.9520, L101.9900, L503.0105, L506.0250 ####[facility] [address] [place], [place], [phone](343) BETA GLOBULIN 1.0 g/dL Normal 0.7-1.3 [facility] Comment on above: Order Comment: Order Date: 07/10/24Order Info: 59-09 - PROELOrder Info: [id number] - LYMS Performed By: #### L 505.7010, L3100.3450, L3100.5475, L7000.5300, L501.9520, L101.9900, L503.0105, L506.0250 ####[facility] [address] [place], [place], [phone](194) GAMMA GLOBULIN 1.0 g/dL Normal 0.4-1.8 [facility] Comment on above: Order Comment: Order Date: 07/10/24Order Info: 59-09 - PROELOrder Info: [id number] - LYMS Performed By: #### L 505.7010, L3100.3450, L3100.5475, L7000.5300, L501.9520, L101.9900, L503.0105, L506.0250 ####[facility] [address] [place], [place], [phone](232) Globulin (S) [Mass/Vol] 2.8 g/dL Normal 2.2-3.9 [facility] Comment on above: Order Comment: Order Date: 07/10/24Order Info: 59-09 - PROELOrder Info: [id number] - LYMS Performed By: #### L 505.7010, L3100.3450, L3100.5475, L7000.5300, L501.9520, L101.9900, L503.0105, L506.0250 ####[facility] [address] [place], [place], [phone] INTERPRETATION Comment Normal . [facility] Comment on above: Order Comment: Order Date: 07/10/24Order Info: 0060-1 - PROELOrder Info: [id number] - LYMS Result Comment: Prot ein electrophoresis scan will follow via computer, mail, or polishing wheel setter delivery. Performed By: #### L 505.7010, L3100.3450, L3100.5475, L7000.5300, L501.9520, L101.9900, L503.0105, L506.0250 ####[facility] [address] [place], [address] M-SPIKE 0.4 g/dL Abnormal Not Observed [facility] Comment on above: Order Comment: Order Date: 07/10/24Order Info: 006 - PROELOrder Info: [id number] - LYMS Performed By: #### L 505.7010, L3100.3450, L3100.5475, L7000.5300, L501.9520, L101.9900, L503.0105, L506.0250 ####[facility] [address] [place], [place], [phone] NOTE: Comment Normal . [facility] Comment on above: Order Comment: Order Date: 07/10/24Order Info: [id number]- - PROELOrder Info: [id number] - LYMS Result Comment: The [...] of Bence-Davis protein. Performed By: #### L 505.7010, L3100.3450, L3100.5475, L7000.5300, L501.9520, L101.9900, L503.0105, L506.0250 ####[facility] [address] [place], [address] Protein [Mass/Vol] 6.2 g/dL Normal 6.0-8.5 [facility] Comment on above: Order Comment: Order Date: 07/10/24Order Info: 0060-1 - PROELOrder Info: [id number] - LYMS Performed By: #### L 505.7010, L3100.3450, L3100.5475, L7000.5300, L501.9520, L101.9900, L503.0105, L506.0250 ####[facility] [address] [place], [address] T4 Free Directon 07-14-2024 T4 FREE DIRECT 0.83 ng/dL Normal 0.76-1.46 [facility] Comment on above: Order Comment: PILAR Edmond ADD T4F TO BLOOD DRAWN 07/10/24 PER Order Date: 07/10/24 Order Info: [id number] - TSH Order Info: [id number] - RA Order Info: 2284-8 - FOLS UNK N Performed By: #### L 506.0400 #### [facility] [address] [place], [place], [address] ANTINUCLEAR ANTIBODIES DIREC Ton 07-12-2024 PERLITA,DIRECT Negative Normal Negative [facility] Comment on above: Order Comment: Order Date: 07/10/24Order Info: [id number] - PERLITA Result Comment: Perf ormed at: - [facility] [address] [id number] Corporate Security Manager: Juanjo Brown PhD, Phone: [phone] Performed By: #### L 505.7010, L3100.3450, L3100.5475, L7000.5300, L501.9520, L101.9900, L503.0105, L506.0250 ####[facility] [address] [place], [address] Erythrocyte Sed Rateon 07-10 SED RATE 2 mm/hr Normal 0-30 [facility] Comment on above: Order Comment: Order Date: 07/10/24 Order Info: [id number] - SED Performed By: #### L 505.7010, L3100.3450, L3100.5475, L7000.5300, L501.9520, L101.9900, L503.0105, L506.0250 #### [facility] [address] [place], [place], [phone] Folates, (Folic Acid)on FOLATES 41.20 ng/mL Normal 3.1-55.4 [facility] Comment on above: Order Comment: Order Date: 07/10/24 Order Info: [id number] - TSH Order Info: [id number] - RA Order Info: 2284-8 - FOLS UNK N Performed By: #### L 505.7010, L3100.3450, L3100.5475, L7000.5300, L501.9520, L101.9900, L503.0105, L506.0250 #### [facility] [address] [place], [place], [phone] Rheumatoid Factoron 07-10-20 24 RHEUMATOID FAC < 10.0 Normal <15 [facility] Comment on above: Order Comment: Order Date: 07/10/24 Order Info: [id number] - TSH Order Info: [id number] - RA Order Info: [id number] - FOLS UNK N Performed By: #### L 505.7010, L3100.3450, L3100.5475, L7000.5300, L501.9520, L101.9900, L503.0105, L506.0250 #### [facility] [address] [place], [place], [phone] Thyroid Stim Hormone (TSH)on 07-10-2024 TSH 4.190 uIU/mL High 0.358-3.74 0 [facility] Comment on above: Order Comment: Order Date: 07/10/24 Order Info: [id number] - TSH Order Info: [id number] - RA Order Info: [id number] - FOLS UNK N Performed By: #### L 505.7010, L3100.3450, L3100.5475, L7000.5300, L501.9520, L101.9900, L503.0105, L506.0250 #### [facility] [address] [place], [address] Vitamin B12on 07-10-2024 Cobalamin (Vitamin B12) [Mass/Vol] 423 pg/mL Normal 211-911 [facility] Comment on above: Order Comment: Order Date: 07/10/24 Order Info: [id number] - B12 Performed By: #### L 505.7010, L3100.3450, L3100.5475, L7000.5300, L501.9520, L101.9900, L503.0105, L506.0250 #### [facility] [address] [place], [address] Gastrointestinal pathogens p jose alfredo ROZ+probe (Stl)Ordered By: Dr. Quispe on 10-25-2022 Enteric Bacteriology Rotavirus [facility] Absolute lymphocyte countOrd ered By: Dr. Quispe on 10-24-2022 Lymphocytes Auto (Unsp spec) [#/Vol] 1.58 10*3/uL 0.83-4.51 [facility] Basophil percentageOrdered B y: Dr. Quispe on 10-24-2022 Basophils/100 WBC (Bld) 0.5 % 0-1 [facility] Bilirubin [Mass/Vol] 0.80 mg/dL 0.20-1.00 [facility] Comment on above: For patients on eltr ombopag therapy, use of Dimension Julian TBIL is not recommended. Chloride [Moles/Vol] 108 mmol/L 98-107 [facility] Eosinophils/100 WBC (Bld) 0.9 % 0-5 [facility] Glucose [Mass/Vol] 119 mg/dL 74-106 [facility] Comment on above: Fasting Glucose resu lt from 100 to 125 mg/dL suggests IMPAIRED HOMEOSTASIS per A.D.A. criteria. Neutrophils (Bld) [#/Vol] 4.6 10*3/uL 2.0-7.7 [facility] Neutrophils/100 WBC (Bld) 60.6 % 47-70 [facility] Potassium [Moles/Vol] 3.5 mmol/L 3.5-5.1 [facility] Protein [Mass/Vol] 7.6 g/dL 6.4-8.2 [facility] Sodium [Moles/Vol] 139 mmol/L 136-145 [facility] WBC (Bld) [#/Vol] 7.6 10*3/uL 4.4-11.0 [facility] Blood erythrocytes count (nu mber/volume)Ordered By: Dr. Quispe on 10-24-2022 RBC (Bld) [#/Vol] 5.58 10*6/uL 4.2-5.4 [facility] Blood hemoglobin measurement (mass/volume)Ordered By: Dr. Quispe on 10-24-2022 Hemoglobin (Bld) [Mass/Vol] 16.7 g/dL 12.0-15.0 [facility] Blood lymphocytes/100 leukoc ytesOrdered By: Dr. Quispe on 10-24-2022 Lymphocytes/100 WBC (Bld) 20.7 % 19-41 [facility] Blood monocytes/100 leukocyt esOrdered By: Dr. Quispe on 10-24-2022 Monocytes/100 WBC (Bld) 16.4 % 0-10 [facility] Blood platelet mean volumeOr dered By: Dr. Quispe on 10-24-2022 Platelet mean volume (Bld) [Entitic vol] 10.7 fL 6.2-12.0 [facility] Clostridium difficile detect ion by polymerase chain reactionOrdered By: Dr. Quispe on 10-24-2022 C. difficile DNA ROZ+probe Ql (Unsp spec) [facility] Determination of erythrocyte mean corpuscular volume (MCV)Ordered By: Dr. Quispe on 10-24-2022 MCV (RBC) [Entitic vol] 89.2 fL 81-99 [facility] Hematocrit Auto (Bld) [Volum e fraction]Ordered By: Dr. Quispe on 10-24-2022 Hematocrit (Bld) [Volume fraction] 49.8 % 37-47 [facility] - Chemistry and C hemistry - challengeOrdered By: Dr. Quispe on 10-24-2022 ALP [Catalytic activity/Vol] 65 U/L 45-117 [facility] ALT [Catalytic activity/Vol] 26 U/L 13-56 [facility] CO2 [Moles/Vol] 20.0 mmol/L 21.0-32.0 [facility] Globulin (S) [Mass/Vol] 3.8 g/dL 2.2-4.2 [facility] Lipase [Catalytic activity/Vol] 103 U/L 73-393 [facility] Urea nitrogen/Creatinine [Mass ratio] 18.4 mg/mg 10-20 [facility] - Hematology and Cell countsOrdered By: Dr. Quispe on 10-24-2022 Erythrocyte distribution width (RBC) [Entitic vol] 45.0 fL 35.1-43.9 [facility] Erythrocyte distribution width (RBC) [Ratio] 13.7 % 11.6-14.6 [facility] Immature granulocytes/100 WBC (Bld) 0.900 % 0.0-0.9 [facility] Comment on above: IG% - Immature Granu locytes (promyelocytes, myelocytes and metamyelocytes) > 1% indicates that a LEFT SHIFT is Present. MCH (RBC) [Entitic mass] 29.9 pg 27.0-32.0 [facility] Nucleated RBC/100 WBC (Bld) [Ratio] 0 % 0-5 [facility] MCHC Auto (RBC) [Mass/Vol]Or dered By: Dr. Quispe on 10-24-2022 MCHC (RBC) [Mass/Vol] 33.5 g/dL 32-36 [facility] No Panel InformationOrdered By: Dr. Quispe on 10-24-2022 Estimated Creatinine Clearance Calc 17.91 ml/min [facility] Estimated GFR (MDRD) Amer 36 mL/min >60 [facility] Comment on above: GFR Calc Estimated GFR (MDRD) Non-Af Amer 30 mL/min >60 [facility] Comment on above: Non- GFR Calc Platelets bldOrdered By: Dr. Quispe on 10-24-2022 Platelets (Bld) [#/Vol] 222 10*3/uL 150-450 [facility] Serum or plasma albumin cole urement (mass/volume)Ordered By: Dr. Quispe on 10-24-2022 Albumin [Mass/Vol] 3.8 g/dL 3.2-5.0 [facility] Serum or plasma albumin/glob ulin mass ratioOrdered By: Dr. Quispe on 10-24-2022 Albumin/Globulin [Mass ratio] 1.0 {ratio} 0.9-2.4 [facility] Serum or plasma calcium cole urement (mass/volume)Ordered By: Dr. Quispe on 10-24-2022 Calcium [Mass/Vol] 9.0 mg/dL 8.5-10.1 [facility] Serum or plasma creatinine m easurement (mass/volume)Ordered By: Dr. Quispe on 10-24-2022 Creatinine [Mass/Vol] 1.74 mg/dL 0.55-1.02 [facility] Comment on above: The validity of the calculated GFR & GFRAA in patients over 70 years has not been determined. Clinical correlation is essential. Serum or plasma urea nitroge n measurement (mass/volume)Ordered By: Dr. Quispe on 10-24-2022 Urea nitrogen [Mass/Vol] 32 mg/dL 7-18 [facility] Stool lactoferrin detection by immunoassayOrdered By: Dr. Quispe on 10-24-2022 Lactoferrin IA Ql (Stl) [facility] Thin prep Papanicolaou smear with manual screeningOrdered By: Dr. Quispe on 10-24-2022 Thin prep Papanicolaou smear with manual screening 31 U/L 15-37 [facility] Thin prep Papanicolaou smear with manual screening 11 5-15 [facility] Absolute lymphocyte countOrd ered By: Dr. Dominguez on 07-10-2022 Lymphocytes Auto (Unsp spec) [#/Vol] 1.98 10*3/uL 0.83-4.51 [facility] Basophil percentageOrdered B y: Dr. Dominguez on 07-10-2022 Basophils/100 WBC (Bld) 1.0 % 0-1 [facility] Bilirubin [Mass/Vol] 0.50 mg/dL 0.20-1.00 [facility] Comment on above: For patients on eltr ombopag therapy, use of Dimension Julian TBIL is not recommended. Chloride [Moles/Vol] 110 mmol/L 98-107 [facility] Eosinophils/100 WBC (Bld) 3.2 % 0-5 [facility] Glucose [Mass/Vol] 164 mg/dL 74-106 [facility] Comment on above: Fasting Glucose resu lt greater than or equal to 126 mg/dL suggests DIABETES MELLITUS per A.D.A. criteria. Neutrophils (Bld) [#/Vol] 3.9 10*3/uL 2.0-7.7 [facility] Neutrophils/100 WBC (Bld) 56.2 % 47-70 [facility] Potassium [Moles/Vol] 4.0 mmol/L 3.5-5.1 [facility] Protein [Mass/Vol] 6.8 g/dL 6.4-8.2 [facility] Sodium [Moles/Vol] 141 mmol/L 136-145 [facility] WBC (Bld) [#/Vol] 7.0 10*3/uL 4.4-11.0 [facility] Blood erythrocytes count (nu mber/volume)Ordered By: Dr. Dominguez on 07-10-2022 RBC (Bld) [#/Vol] 5.05 10*6/uL 4.2-5.4 [facility] Blood hemoglobin measurement (mass/volume)Ordered By: Dr. Dominguez on 07-10-2022 Hemoglobin (Bld) [Mass/Vol] 15.2 g/dL 12.0-15.0 [facility] Blood lymphocytes/100 leukoc ytesOrdered By: Dr. Dominguez on 07-10-2022 Lymphocytes/100 WBC (Bld) 28.4 % 19-41 [facility] Blood monocytes/100 leukocyt esOrdered By: Dr. Dominguez on 07-10-2022 Monocytes/100 WBC (Bld) 10.3 % 0-10 [facility] Blood platelet mean volumeOr dered By: Dr. Dominguez on 07-10-2022 Platelet mean volume (Bld) [Entitic vol] 11.1 fL 6.2-12.0 [facility] Determination of erythrocyte mean corpuscular volume (MCV)Ordered By: Dr. Dominguez on 07-10-2022 MCV (RBC) [Entitic vol] 93.3 fL 81-99 [facility] Hematocrit Auto (Bld) [Volum e fraction]Ordered By: Dr. Dominguez on 07-10-2022 Hematocrit (Bld) [Volume fraction] 47.1 % 37-47 [facility] - Chemistry and C hemistry - challengeOrdered By: Dr. Dominguez on 07-10-2022 ALP [Catalytic activity/Vol] 58 U/L 45-117 [facility] ALT [Catalytic activity/Vol] 24 U/L 13-56 [facility] CO2 [Moles/Vol] 25.0 mmol/L 21.0-32.0 [facility] Globulin (S) [Mass/Vol] 3.5 g/dL 2.2-4.2 [facility] Urea nitrogen/Creatinine [Mass ratio] 15.2 mg/mg 10-20 [facility] - Hematology and Cell countsOrdered By: Dr. Dominguez on 07-10-2022 Erythrocyte distribution width (RBC) [Entitic vol] 45.1 fL 35.1-43.9 [facility] Erythrocyte distribution width (RBC) [Ratio] 13.2 % 11.6-14.6 [facility] Immature granulocytes/100 WBC (Bld) 0.900 % 0.0-0.9 [facility] Comment on above: IG% - Immature Granu locytes (promyelocytes, myelocytes and metamyelocytes) > 1% indicates that a LEFT SHIFT is Present. MCH (RBC) [Entitic mass] 30.1 pg 27.0-32.0 [facility] Nucleated RBC/100 WBC (Bld) [Ratio] 0 % 0-5 [facility] MCHC Auto (RBC) [Mass/Vol]Or dered By: Dr. Dominguez on 07-10-2022 MCHC (RBC) [Mass/Vol] 32.3 g/dL 32-36 [facility] No Panel InformationOrdered By: Dr. Dominguez on 07-10-2022 Estimated GFR (MDRD) Amer 60 mL/min >60 [facility] Comment on above: GFR Calc Estimated GFR (MDRD) Non-Af Amer 50 mL/min >60 [facility] Comment on above: Non- GFR Calc Thyroid Stimulating Hormone (TSH) 3.47 uIU/mL 0.358-3.74 [facility] Platelets bldOrdered By: Dr. Dominguez on 07-10-2022 Platelets (Bld) [#/Vol] 252 10*3/uL 150-450 [facility] Serum or plasma albumin cole urement (mass/volume)Ordered By: Dr. Dominguez on 07-10-2022 Albumin [Mass/Vol] 3.3 g/dL 3.2-5.0 [facility] Serum or plasma albumin/glob ulin mass ratioOrdered By: Dr. Dominguez on 07-10-2022 Albumin/Globulin [Mass ratio] 0.9 {ratio} 0.9-2.4 [facility] Serum or plasma calcium cole urement (mass/volume)Ordered By: Dr. Dominguez on 07-10-2022 Calcium [Mass/Vol] 8.5 mg/dL 8.5-10.1 [facility] Serum or plasma creatinine m easurement (mass/volume)Ordered By: Dr. Dominguez on 07-10-2022 Creatinine [Mass/Vol] 1.12 mg/dL 0.55-1.02 [facility] Comment on above: The validity of the calculated GFR & GFRAA in patients over 70 years has not been determined. Clinical correlation is essential. Serum or plasma urea nitroge n measurement (mass/volume)Ordered By: Dr. Dominguez on 07-10-2022 Urea nitrogen [Mass/Vol] 17 mg/dL 7-18 [facility] Thin prep Papanicolaou smear with manual screeningOrdered By: Dr. Dominguez on 07-10-2022 Thin prep Papanicolaou smear with manual screening 23 U/L 15-37 [facility] Thin prep Papanicolaou smear with manual screening 6 5-15 [facility] CNPTOUTREACHon 10-05-2020 [facility] Patient Outreach ([facility] OCC3) SHADIA TURNER ([id number]) 1940 F Date Time Provider Department 10/05/20 SONNY, EMMETT JONNYCHARLIEJada During your visit today, we recorded the following information about you: Allergies As of Date: 10/05/2020 Noted Allergy Reaction AUGMENTIN (AMOXICILLIN-POT CLAVUL*05/08/2018 8 - GI Upset Comments: Unable to tolerate due to GI side effects CHLORHEXIDINE 10/31/2018 2 - Rash LATEX 05/26/2009 2 - Rash Date Reviewed: 10/07/2018 Reviewed by: Ni Harris LPN - Fully Assessed Order(s):SARS-COVID VACCINE 1ST DOSE APPT [59311III] Order #: [id number] FUTURE Prescriptions as of 10/05/2020 Sig: NEOMYCIN [...] Status:Closed by EPIC, PRODUSER on 10/08/20 Normal [facility] Vital Signs Date Time Vital Sign Value Performing Clinician Faci sheri 04-05-2025 20:20-0400 Body temperature 98 [degF] Dr. Doroteo Dominguez MD Work Phone: [facility] 04-05-2025 20:20-0400 Diastolic blood pressure 62 mm[Hg] Dr. Doroteo Dominguez MD Work Phone: [facility] 04-05-2025 20:20-0400 Heart rate 81 /min Dr. Doroteo Dominguez MD Work Phone: 2(581)068-774636 [place] [address] 04-05-2025 20:20-0400 Respiratory rate 16 /min Dr. Doroteo Dominguez MD Work Phone: 9(013)708-193936 [place] [address] 04-05-2025 20:20-0400 SaO2% (BldA) [Mass fraction] 97 % Dr. Doroteo Dominguez MD Work Phone: 9(435)165-340089 [place] [address] 04-05-2025 20:20-0400 Systolic blood pressure 135 mm[Hg] Dr. Doroteo Dominguez MD Work Phone: 0(292)319-572489 [place] [address] 04-05-2025 15:16-0400 Body height 152.[address] Doroteo Dominguez MD Work Phone: 5(910)837-120589 [place] [address] 04-05-2025 15:16-0400 Body mass index (BMI) [Ratio] 26.4 kg/m2 Dr. Doroteo Dominguez MD Work Phone: 2(705)667-224189 [place] [address] 04-05-2025 15:16-0400 Body weight 61.[address] Doroteo Dominguez MD Work Phone: 6(188)457-904745 [address] 04-01-2025 11:07-0400 Body temperature 98.4 [degF] Dr. Doroteo Dominguez MD Work Phone: 8(328)266-128336 [place] [address] 04-01-2025 11:07-0400 Diastolic blood pressure 89 mm[Hg] Dr. Doroteo Dominguez MD Work Phone: 7(531)433-528745 [address] 04-01-2025 11:07-0400 Heart rate 67 /min Dr. Doroteo Dominguez MD Work Phone: 2(009)230-588936 [place] [address] 04-01-2025 11:07-0400 Respiratory rate 16 /min Dr. Doroteo Dominguez MD Work Phone: 4(707)299-362589 [place] [address] 04-01-2025 11:07-0400 SaO2% (BldA) [Mass fraction] 100 % Dr. Doroteo Dominguez MD Work Phone: 5(352)576-426289 [place] [address] 04-01-2025 11:07-0400 Systolic blood pressure 110 mm[Hg] Dr. Doroteo Dominguez MD Work Phone: 0(978)053-818989 [place] [address] 04-01-2025 09:13-0400 Body height 152.[address] Doroteo Dominguez MD Work Phone: 5(789)804-830089 [place] [address] 04-01-2025 09:13-0400 Body mass index (BMI) [Ratio] 25 kg/m2 Dr. Doroteo Dominguez MD Work Phone: 3(981)662-425489 [place] [address] 04-01-2025 09:13-0400 Body weight [address] Doroteo Dominguez MD Work Phone: 6(324)646-981489 [place] [address] 02-13-2025 11:00-0400 Body temperature 97.1 [degF] Dr. Doroteo Dominguez MD Work Phone: 9(384)433-749489 [place] [address] 02-13-2025 11:00-0400 Diastolic blood pressure 55 mm[Hg] Dr. Doroteo Dominguez MD Work Phone: 0(789)441-258889 [place] [address] 02-13-2025 11:00-0400 Heart rate 76 /min Dr. Doroteo Dominguez MD Work Phone: 4(738)164-848289 [place] [address] 02-13-2025 11:00-0400 Respiratory rate 16 /min Dr. Doroteo Dominguez MD Work Phone: 4(331)343-247589 [place] [address] 02-13-2025 11:00-0400 SaO2% (BldA) [Mass fraction] 96 % Dr. Doroteo Dominguez MD Work Phone: 3(679)849-770689 [place] [address] 02-13-2025 11:00-0400 Systolic blood pressure 143 mm[Hg] Dr. Doroteo Dominguez MD Work Phone: 0(150)350-086189 [place] [address] 11-02-2024 13:40-0500 Body temperature 98.7 [degF] Dr. Doroteo Dominguez MD Work Phone: 4(768)386-478989 [place] [address] 11-02-2024 13:40-0500 Diastolic blood pressure 62 mm[Hg] Dr. Doroteo Dominguez MD Work Phone: 2(757)012-094889 [place] [address] 11-02-2024 13:40-0500 Heart rate 63 /min Dr. Doroteo Dominguez MD Work Phone: 8(721)639-603789 [place] [address] 11-02-2024 13:40-0500 SaO2% (BldA) [Mass fraction] 96 % Dr. Doroteo Dominguez MD Work Phone: 1(042)734-752089 [place] [address] 11-02-2024 13:40-0500 Systolic blood pressure 110 mm[Hg] Dr. Doroteo Dominguez MD Work Phone: 9(016)358-444689 [place] [address] 08-22-2024 11:01-0500 Body height 152.[address] Doroteo Dominguez MD Work Phone: 6(328)931-221889 [place] [address] 08-22-2024 11:01-0500 Body mass index (BMI) [Ratio] 25.4 kg/m2 Dr. Doroteo Dominguez MD Work Phone: 7(424)[phone] [place] [address] 08-22-2024 11:01-0500 Body temperature 98 [degF] Dr. Doroteo Dominguez MD Work Phone: 4(015)380-586889 [place] [address] 08-22-2024 11:01-0500 Body weight 58.[address] Doroteo Dominguez MD Work Phone: 1(884)479-891889 [place] [address] 08-22-2024 11:01-0500 Diastolic blood pressure 80 mm[Hg] Dr. Doroteo Dominguez MD Work Phone: 6(556)587-816989 [place] [address] 08-22-2024 11:01-0500 Heart rate 73 /min Dr. Doroteo Dominguez MD Work Phone: 1(308)597-223089 [place] [address] 08-22-2024 11:01-0500 Respiratory rate 18 /min Dr. Doroteo Dominguez MD Work Phone: 4(169)678-347389 [place] [address] 08-22-2024 11:01-0500 SaO2% (BldA) [Mass fraction] 94 % Dr. Doroteo Dominguez MD Work Phone: 3([phone])221-314889 [place] [address] 08-22-2024 11:01-0500 Systolic blood pressure 141 mm[Hg] Dr. Doroteo Dominguez MD Work Phone: [facility] 10-24-2022 20:14-0500 Respiratory rate 15 /min Dr. Doroteo Dominguez Work Phone: [facility] 10-24-2022 20:14-0500 SaO2% (BldA) [Mass fraction] 95 % Dr. Doroteo Dominguez Work Phone: [facility] 10-24-2022 18:05-0500 Body height 152.[address] Doroteo Dominguez Work Phone: [facility] 10-24-2022 18:05-0500 Body mass index (BMI) [Ratio] 26.2 kg/m2 Dr. Doroteo Dominguez Work Phone: [facility] 10-24-2022 18:05-0500 Body temperature 97.5 [degF] Dr. Doroteo Dominguez Work Phone: [facility] 10-24-2022 18:05-0500 Body weight [address] Doroteo Dominguez Work Phone: [facility] 10-24-2022 18:05-0500 Diastolic blood pressure 75 mm[Hg] Dr. Doroteo Dominguez Work Phone: [facility] 10-24-2022 18:05-0500 Heart rate 98 /min Dr. Doroteo Dominguez Work Phone: [facility] 10-24-2022 18:05-0500 Systolic blood pressure 122 mm[Hg] Dr. Doroteo Dominguez Work Phone: [facility] Encounters Encounter Date Encounter Type Care Provider Facility Start: 04-05-2025 End: 04-05-2025 Emergency department patient visit Dr. Doroteo Dominguez MD Work Phone: -Emergency Department Work Phone: Start: 04-01-2025 Non-patient / Non-visit James Green nd DO -[facility] Start: 04-01-2025 End: 04-01-2025 Admission to same day surgery center James Hwang DO -Endoscopy Work Phone: Start: 04-01-2025 End: 04-01-[address] Doroteo Dominguez MD Work Phone: -Endoscopy Start: 02-13-2025 End: 02-13-[address] Doroteo Dominguez MD -Medical Out Work Phone: Start: 02-13-2025 End: 02-13-[address] Doroteo Dominguez MD Work Phone: [facility] Work Phone: Start: 11-18-2024 End: 11-18-[address] Doroteo Dominguez MD Work Phone: [facility] Work Phone: Start: 11-18-2024 End: 11-18-[address] Doroteo Dominguez MD -Outpatient Bone Densitometry Work Phone: Start: 11-18-2024 End: 11-18-2024 ambulatory Doroteo Dominguez Facility:[facility] Start: 11-02-2024 End: 11-02-2024 Patient encounter procedure Krishna FORDE [facility] Work Phone: Start: 11-02-2024 End: 11-02-2024 ambulatory Doroteo Dominguez Facility:[facility] [place] [place] Start: 09-29-2024 End: 09-29-[address] Doroteo Dominguez MD -Laboratory, Specimen Work Phone: Start: 09-29-2024 End: 09-29-2024 ambulatory Doroteo Dominguez Facility:[facility] Start: 09-26-2024 End: 09-26-[address] Doroteo Dominguez MD -Laboratory, [facility] Start: 09-26-2024 End: 09-26-2024 ambulatory Doroteo Dominguez Facility:[facility] Start: 08-22-2024 End: 08-22-[address] Doroteo Dominguez MD -Medical Out Work Phone: Start: 08-22-2024 End: 08-22-2024 ambulatory Doroteo Dominguez Facility:[facility] Start: 07-10-2024 End: 07-10-2024 ambulatory Doroteo Dominguez Facility:[facility] Start: 08-03-2023 End: 08-03-2023 ambulatory [facility] Work Phone: Start: 08-03-2023 End: 08-03-2023 Patient encounter procedure [facility]-Outpatient Breast Imaging Work Phone: Start: 11-16-2022 End: 11-16-[address] Doroteo Dominguez Work Phone: [facility] Work Phone: Start: 11-16-2022 End: 11-16-[address] Doroteo Dominguez Work Phone: [facility]-Outpatient Bone Densitometry Start: 10-24-2022 End: 10-24-2022 Emergency department patient visit Dr. Doroteo Dominguez Work Phone: [facility]-Emergency Department Start: 09-21-2022 End: 09-21-[address] Doroteo Dominguez Work Phone: [facility] Work Phone: Start: 09-21-2022 End: 09-21-[address] Doroteo Dominguez Work Phone: [facility] Start: 07-26-2022 Non-patient / Non-visit Dr. Sy Dominguez Work Phone: [facility] Start: 07-26-2022 End: 07-26-[address] Doroteo Dominguez Work Phone: [facility]-Cardiovascular Services Start: 07-10-2022 End: 07-10-2022 ambulatory [facility] Work Phone: Start: 07-10-2022 End: 07-10-2022 Patient encounter procedure [facility]-Outpatient Bone Densitometry Procedures Date Procedure Procedure Detail Performing Clinician Start: 04-05-[address] Doroteo Dominguez MD Work Phone: Start: 04-05-2025 Urnls dip stick/tabl et reagent auto microscopy Dr. Doroteo Dominguez MD Work Phone: Start: 04-05-2025 Computed tomography of abdomen and pelvis with intravenous contrast Dr. Doroteo Dominguez MD Work Phone: Start: 04-01-[address] Doroteo koo MD Work Phone: Start: 11-18-2024 Dual energy X-ray absorptiometry Dr. Doroteo Dominguez MD Work Phone: Start: 11-18-2024 Screening mammography Rita Dominguez MD Work Phone: Start: 08-03-2023 Screening [...] Treatment Date Care Activity Detail Author Start: 04-05-2025 [facility] Start: 04-01-2025 Patient discharge [facility] Start: 11-16-2022 Dual energy X-ray absorptiometry Dexa Bone Density Study [facility] Start: 10-24-2022 Enteric precautions [facility] Bilirubin measuremen t, urine [facility] C. difficile DNA Amplification C. difficile DNA Amplification [facility] Clostridioides diffi cile DNA [Presence] in Unspecified specimen by ROZ with probe detection [facility] Enteric Bacteriology Enteric Bacteriology [facility] Gastrointestinal pat hogens panel - Stool by ROZ with probe detection [facility] Hemoglobin [Presence ] in Urine [facility] Measurement of keton es in urine using dipstick [facility] Microscopic urinalysis [facility] Ova and parasites identified in Unspecified specimen by Light microscopy [facility] Patient Education ED Abdominal P ain Unkn Cause Fem ED Diarrhea, Unknown Cause [facility] Work Phone: Patient referral [facility] Work Phone: pH of Urine [facility] Specific gravity of Urine [facility] Urinalysis, blood, qualitative [facility] Urine dipstick for glucose [facility] Urine dipstick for leukocyte esterase [facility] Urine dipstick for nitrite [facility] Urine dipstick for protein [facility] Urine examination [facility] Urine microscopy: epithelial cells [facility] Urine Microscopy: wh ite cells [facility] Urobilinogen [Presen ce] in Urine [facility] Immunizations Immunization Date Immunization Notes Care Provider Fa cility 10-21-2020 Covid ([facility]) [facility] 05-22-2018 Influenza virus vaccine [facility] Payers Date Payer Category Payer Medicare [id number] 2024 Self-pay [id number] Medicare MEDICARE PART A B [id number] Medicare MEDICARE PART A B [id number] Unknown [id number] 2.16.8 [id number] Unknown [id number] 2.16.8 [id number] Unknown [id number] 2.16.8 [id number] Unknown [id number] 2.16.8 [id number] Unknown [id number] 2.16.8 [id number] Unknown [id number] 2.16.8 [id number] Unknown [id number] 2.16.8 [id number] Unknown [id number] 2.16.8 [id number] Unknown [id number] 2.16.8 [id number] Unknown [id number] 2.16.8 [id number] Social History Date Type Detail Facility Start: 03-19-2021 End: 10-24-2022 Tobacco smoking status NHIS Unknown if ever smoked [facility] Start: 08-19-2018 Non-smoker [facility] Start: 1940 Sex Assigned At Female [facility] Start: 11-27-2014 None [facility] Start: 11-27-2014 Spouse/ Signif icant Other [facility] Start: 10-24-2022 End: 04-05-2025 Tobacco smoking status NHIS Never smoked tobacco (finding) [facility] Start: 11-26-2024 Sex Female (finding) [facility] Medical Equipment Procedure Code Equipment Code Equipment Original Text Equipment Identifier Dates Laparoscopic-assisted sigmoidectomy LIN QUIJANO LG FDA Start: 10-23-2018 Laparoscopic-assisted sigmoidectomy LIN QUIJANO FDA Start: 10-23-2018 Laparoscopic-assisted sigmoidectomy CLIPHEMCORNELIO MACDONALD FDA Start: 10-23-2018 Laparoscopic-assisted sigmoidectomy RELOAD,GOLD 60 FDA Start: 10-23-2018 Laparoscopic-assisted sigmoidectomy RELOAD,GOLD 60 FDA Start: 10-23-2018 Laparoscopic-assisted sigmoidectomy STAPLER,INTRA CDH29A ETHICON FDA Start: 10-23-2018 Laparoscopic-assisted sigmoidectomy LIN QUIJANO LG FDA Start: 10-23-2018 Laparoscopic-assisted sigmoidectomy CLIPLIN FDA Start: 10-23-2018 Laparoscopic-assisted sigmoidectomy CLIP,HEMOLOCK MED [...] ETHICON FDA Start: 10-23-2018 Laparoscopic-assisted sigmoidectomy CLIP,HEMCORNELIO LG TORRES FDA Start: 10-23-2018 Laparoscopic-assisted sigmoidectomy CLIP,HEMOLOCK MED WECK FDA Start: 10-23-2018 Laparoscopic-assisted sigmoidectomy CLIP,HEMOLOCK MED WECK FDA Start: 10-23-2018 Laparoscopic-assisted sigmoidectomy RELOAD,GOLD 60 FDA Start: 10-23-2018 Laparoscopic-assisted sigmoidectomy RELOAD,GOLD 60 FDA Start: 10-23-2018 Laparoscopic-assisted sigmoidectomy STAPLER,INTRA CDH29A ETHICON FDA Start: 10-23-2018 Laparoscopic-assisted sigmoidectomy CLIP,HEMOLODALJIT LG WECK FDA Start: 10-23-2018 Laparoscopic-assisted sigmoidectomy CLIP,HEMOLOCK MED WECK FDA Start: 10-23-2018 Laparoscopic-assisted sigmoidectomy CLIP,HEMOLOCK MED WECK FDA Start: 10-23-2018 Laparoscopic-assisted sigmoidectomy RELOAD,GOLD 60 FDA Start: 10-23-2018 Laparoscopic-assisted sigmoidectomy RELOAD,GOLD 60 FDA Start: 10-23-2018 Laparoscopic-assisted sigmoidectomy STAPLER,INTRA CDH29A ETHICON FDA Start: 10-23-2018 Laparoscopic-assisted sigmoidectomy CLIP,IMANICORNELIO MACDONALD FDA Start: 10-23-2018 Laparoscopic-assisted sigmoidectomy CLIP,IMANICORNELIO MACDONALD FDA Start: 10-23-2018 Laparoscopic-assisted sigmoidectomy CLIP,HEMCORNELIO MACDONALD FDA Start: 10-23-2018 Laparoscopic-assisted sigmoidectomy RELOAD,GOLD 60 FDA Start: 10-23-2018 Laparoscopic-assisted sigmoidectomy RELOAD,GOLD 60 FDA Start: 10-23-2018 Laparoscopic-assisted sigmoidectomy STAPLER,INTRA CDH29A ETHICON FDA Start: 10-23-2018 Laparoscopic-assisted sigmoidectomy CLIP,IMANICORNELIO MACDONALD FDA Start: 10-23-2018 Laparoscopic-assisted sigmoidectomy CLIP,IMANICORNELIO MACDONALD FDA Start: 10-23-2018 Laparoscopic-assisted sigmoidectomy CLIP,HEMCORNELIO MACDONALD FDA Start: 10-23-2018 Laparoscopic-assisted sigmoidectomy RELOAD,GOLD 60 FDA Start: 10-23-2018 Laparoscopic-assisted sigmoidectomy RELOAD,GOLD 60 FDA Start: 10-23-2018 Laparoscopic-assisted sigmoidectomy STAPLER,INTRA CDH29A ETHICON FDA Start: 10-23-2018 Laparoscopic-assisted sigmoidectomy CLIP,IMANICORNELIO MACDONALD FDA Start: 10-23-2018 Laparoscopic-assisted sigmoidectomy CLIP,IMANICORNELIO MACDONALD FDA Start: 10-23-2018 Laparoscopic-assisted sigmoidectomy CLIP,IMANICORNELIO MACDONALD FDA Start: 10-23-2018 Laparoscopic-assisted sigmoidectomy RELOAD,GOLD 60 FDA Start: 10-23-2018 Laparoscopic-assisted sigmoidectomy RELOAD,GOLD 60 FDA Start: 10-23-2018 Laparoscopic-assisted sigmoidectomy STAPLER,INTRA CDH29A ETHICON FDA Start: 10-23-2018 Goals Date Patient Goal Desired Activity /State Mental Status Date Assessment Result Facility 04-01-2025 Cognitive function Voice/Name [facility] Work Phone: 02-13-2025 Cognitive function Awake;Alert;A ppropriate;Fol lows Commands [facility] Work Phone: 08-22-2024 Cognitive function Voice/Name [facility] Work Phone: Clinical Notes 10-24-2022 to 04-05-2025 Note Date & Type Note Facility 04-05-2025 Discharge summary [facility] 04-05-2025 Radiology Diagnostic study note [facility] Imaging Services [address] [place] [address] Abdomen/Pelvis W IV Cont ONLY MR#: [id number] Acct: [id number] Name: SHADIA TURNER Rep #: [id number] : 1940 F 84 From: Surinder Kaba MD PCP: Dr. Doroteo Dominguez MD Status: REG ER Study:Abdomen/Pelvis W IV Cont ONLY Date of E xam: 04/05/25 Exam# [id number] Ordering Dr: Fan Andujar DO PROCEDURE: ABDOMEN/PELVIS W IV CONT ONLY 04/05/2025 REASON FOR EXAM: ABD PAIN LOWER TECHNIQUE: ABDOMEN/PELVIS W IV CONT ONLY Coronal and Sagittal reconstruction series were provided. Intravenous contrast administered. One or more dose reduction techniques were used (e.g., Automated exposure control, adjustment of the mA and/or kV according to patient size, use of iterative reconstruction technique. RADIATION DOSE SUMMARY: Dose reduction strategies employed. COMPARISON: None FINDINGS: Liver, spleen, pancreas, adrenals are unremarkable. Lung bases are clear. Small hiatal hernia. Parapelvic simple cysts of the kidneys. Aorta is nonaneurysmal but demonstrates significant atheromatous vascular calcifications. Normal gallbladder. No adenopathy. No free fluid. No inguinal adenopathy. Diverticulosis without diverticulitis no dilated loops of bowel. Nonvisualization of the appendix. CT/Abdomen/Pelvis W IV Cont ONLY IMPRESSION: No gross CT abnormalities. Nonvisualization of the appendix. Chronic findings as above. [facility] CC: Dr. Doroteo Dominguez MD; Dr. Mehran Andujar DO ~ Treasury Agent: Signed [facility] 04-05-2025 Discharge summary Note Date/Time April 05, 2025 8:01pm [facility] Medical Records Department [address] [place] [address] Emergency Department Summary 04/05/25 MR#: [id number] Acct: [id number] Name: SHADIA TURNER Rep #:[id number] : 1940 84 From: Mehran Andujar DO PCP: Dr. oDroteo Dominguez MD Status:REG ER Location: ED HPI History of Present Illness Chief Complaint: Abd Pain Narrative Narrative: Patient is 84-year-old female with a past medical history of colectomy after perforation who presented to the emergency department the chief complaint of abdominal pain. Patient states that she had a colonoscopy on Sunday by Dr. Hwang and notes that she took a nap earlier today woke up with lower abdominal pain. Patient states that her pain was in her lower abdomen wrapping to her back prompting her to come here for further evaluation management. Patient did note that she has not been around anybody ill recently and felt well before going to take a nap today. [facility] Medical History Wears hearing aid Loss [...] (L-Lysine) 500 mg PO DAILY 03/31/25 History dicyclomine 20 mg tablet 20 mg PO TID #20 tabs Unknown Rx ondansetron 4 mg disintegrating 4 mg PO Q6H PRN nausea and 04/05/25 Unknown Rx tablet vomiting #20 tabs Allergy/AdvReac Type Severity Reaction Status Date / Time Iodine and Iodide Containing Allergy Rash Verified 04/05/25 15:19 Produc latex Allergy Rash Verified 04/05/25 15:19 adhesive AdvReac Rash Verified 04/05/25 15:19 amoxicillin (From Augmentin) AdvReac Diarrhea Verified 04/05/25 15:19 clavulanic acid (From AdvReac Diarrhea Verified 04/05/25 15:19 Augmentin) Family History Mother Hypertension Surgical History [...] Yes ROS ROS ED ROS Narrative Constitutional: Denies any fevers, chills, headaches Cardiovascular: Denies chest pain Respiratory: Denies coughing wheezing shortness of breath Abdomen: Complains of abdominal pain as noted above denies nausea vomiting : Denies any urinary symptoms Neurological: Denies any numbness, wheeze, tingling Musculoskeletal: Complains of abdominal pain rating to her back as noted above Skin: Denies any rashes or lesions EXAM Physical Exam Narrative Exam Narrative: General: Patient lying in bed resting comfortably did not appear to be in acute distress Head: Atraumatic, normocephalic Eyes: PERRL bilaterally, EOMI bilateral, no conjunctival injection noted Neck: Soft, supple, trachea midline Cardiovascular: Regular rate and rhythm Respiratory: Clear to auscultation bilaterally Abdomen: Soft, nondistended, nontender to palpation Extremities: +5/5 strength noted in the bilateral upper and lower extremities, radial pulses +2/4 in the bilateral extremities Neurological: Patient follow commands knew that she was at [facility] 2024 Skin: Warm, dry, tact no rashes or lesions noted Const Vital Signs: 04/05/25 15:16 04/05/25 15:19 04/05/25 16:04 Temperature 98 F Temperature Source Oral Pulse Rate 77 69 Respiratory Rate 16 16 Blood Pressure 120/64 144/55 H Blood Pressure Mean 82 84 Pulse Ox 96 96 Oxygen Delivery Method Room Air Room Air 04/05/25 16:45 04/05/25 17:30 Temperature Temperature Source Pulse Rate 86 80 Respiratory Rate 14 14 Blood Pressure 126/65 H 137/68 H Blood Pressure Mean 85 91 Pulse Ox 95 96 Oxygen Delivery Method Room Air Room Air MDM MDM MDM Narrative Medical decision making narrative: Patient is a 84-year-old female who presented to the emergency department the chief complaint of abdominal pain. On the differential diagnosis includes but not limited to bowel obstruction, appendicitis, pancreatitis, AAA. Once the workup is obtained reviewed she will be reevaluated. Patient CBC was reviewed showed no evidence leukocytosis white blood count normal at 8.7, he was 15.2, plate count was noted to be 208. Patient sodium normal 143, potassium normal 4.2, creatinine normal at 1.03. Patient AST and ALT of 75 and 43 respectively total bilirubin normal at 0.39. Patient's lipase normal at 60 urinalysis showed no evidence of infection. Patient CT abdomen pelvis with IV contrast was reviewed and showed no acute abnormalities chronic findings noted. Discussed results with the patient she feels much better would like to go home at this point time. Patient given prescriptions for dicyclomine and Zofran for as needed. She was vies follow-up with her doctor in outpatient setting return with worsening symptoms or other concerns. Significant other bedside is also agreeable to plan. All question concerns answered. Lab Data Labs: Laboratory Results - last 24 hr 04/05/25 15:58 WBC 8.7 RBC 4.99 Hgb 15.2 H Hct 44.4 MCV 89.0 MCH 30.5 MCHC 34.2 RDW Std Deviation 43.6 RDW Coeff of Marshall 13.3 Plt Count 208 MPV 10.8 Immature Gran % (Auto) 0.900 Neut % (Auto) 67.1 Lymph % (Auto) 18.6 L [place] % (Auto) 9.4 Eos % (Auto) 3.2 Baso % (Auto) 0.8 Absolute Neuts (auto) 5.9 Absolute Lymphs (auto) 1.62 Nucleated RBC % 0 Sodium 143 Potassium 4.2 Chloride 105 Carbon Dioxide 27.1 Anion Gap 10 BUN 27 H Creatinine 1.03 Estim Creat Clear Calc 33.26 L Est GFR (MDRD) Non-Af 54 L BUN/Creatinine Ratio 26.2 H Glucose 133 H Calcium 9.5 Total Bilirubin 0.39 AST 75 H ALT 43 H Alkaline Phosphatase 86 Total Protein 6.5 Albumin 3.8 Globulin 2.7 Albumin/Globulin Ratio 1.4 Lipase 60 Urine Color Yellow Urine Clarity Cloudy Urine pH 7.0 Ur Specific Ogden 1.010 Urine Protein 15 H Urine Glucose (UA) Normal Urine Ketones Negative Urine Occult Blood 25 H Urine Nitrite Negative Urine Bilirubin Negative Urine Urobilinogen Normal Ur Leukocyte Esterase 25 H Urine RBC 0-5 SEEN Urine WBC 0 SEEN Ur Squamous Epith Cells 0-5 SEEN Calcium Oxalate Crystal 1+ Amorphous Sediment 2+ Urine Bacteria RARE Urine Mucus 0 SEEN Radiography Diagnostic Testing: Clinical Impression(s) from Imaging Studies Abdomen/Pelvis CT 04/05/25 15:50 IMPRESSION: No gross CT abnormalities. Nonvisualization of the appendix. Chronic findings as above. Reading Location: [facility] Discharge Plan Triage Chief Complaint: Abd Pain ED Provider: Mehran Andujar Dx/Rx/DC Orders Clinical Impression: Abdominal pain, HLD (hyperlipidemia), History of colectomy Prescriptions: New dicyclomine 20 mg tablet 20 mg PO TID Qty: 20 0RF ondansetron 4 mg tablet,disintegrating 4 mg PO Q6H PRN (Reason: nausea and vomiting) Qty: 20 0RF No Action multivitamin [Multiple Vitamins] Tablet 1 tab PO DAILY meclizine 25 mg tablet 25 mg PO TID PRN (Reason: dizziness) cholecalciferol (vitamin D3) [D3-2000] 50 mcg (2,000 unit) capsule 50 mcg PO DAILY lysine [L-Lysine] 500 mg tablet 500 mg PO DAILY Primary Care Provider: Doroteo Dominguez Referrals: Doroteo Dominguez MD [Primary Care Provider] - Activity Restrictions/Additional Instructions: Follow-up your doctor in the outpatient setting. Return with worsening symptomsor other concerns. Your blood work did not show any acute findings and your CT was normal. Use prescriptions as prescribed that was sent to your pharmacy. Print Language: Filipino Disposition Disposition: Home, Self Care What to do if you have Problems For any increased pain, shortness of breath, bleeding, nausea or vomiting, chestpain, or any unexpected problems, contact your Primary Care Provider. Call [employer] [facility] ([phone]) or report to the closest Emergency Room. Call 911 if necessary. 04/05/252000 <Electronically signed by Mehran Andujar DO> Cosigner Signature (if applicable): CC: Dr. Doroteo Dominguez MD ~ Signed [facility] Work Phone: 1(112) 715-265107-30-2025 Consult note Author Craig Burdick [facility] Note Date/Time April 01, 2025 9:20 am [facility] Medical Records Department [address] [place] [address] Pre-Anesthesia Evaluation 04/01/25916 MR#: [id number] Acct: [id number] Name: SHADIA TURNER Rep #:[id number] : 1940 84 From: Craig Salinas PCP: Dr. Doroteo Dominguez MD Status:REG SDC Y Race: C Location: [place] [address] ASA Classification* ASA Classification ASA Classification: 2 [...] lab: CBC WBC 6.0 K/mm3 (4.4-11.0) 01/17/24 08:19 01/17/24 RBC 5.06 M/mm3 (4.2-5.4) 01/17/24 08:01/17/24 Hgb 14.8 g/dL (12.0-15.0) 01/17/24 08:19 01/17/24 Hct 45.9 % (37-47) 01/17/24 08:19 01/17/24 [...] PT 15.9 SECONDS (11.7-14.9) H 11/27/14 08:34 11/02 03/17 Pre-Assessment Diagnosis/Proposed Procedure Planned Operative Procedure(s): COLONOSCOPY Anesthesia History Anesthesia History - svp group director: Anesthesia History - svp group director Hx Hospitalization No 03/27/25 10:21 Any Problems [...] take am of surgery PONV PONV - svp group director: PONV - svp group director Female Yes 03/27/25 10:21 HX of Motion [...] 04/01/25 09:13 Respiratory Assessment Respiratory Assessment - svp group director: Respiratory Tract Infection Hx - svp group director Hx Respiratory Tract Infection No 03/27/25 10:21 STOP Sleep Apnea STOP Sleep Apnea - svp group director: STOP Sleep Apnea - svp group director Hx Hypertension No 03/27/25 10:21 Hx Sleep [...] Tobacco Use History Tobacco Use History - svp group director: Tobacco Use History - svp group director Tobacco Use Smoking Status Never smoker 03/27/25 10:21 Hx Tobacco Use No 03/27/25 10:21 Years Smoking Packs Smoked per Day Smoking Cessation Date was within the last 15 years Hx Smoking Cessation Date Hx Smoking Cessation No: NON SMOKER 03/27/25 10:21 Counseling Hematologic Medial History Hematologic Hx - svp group director: Hematologic 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 Specify any problems Hx of Preganancy in last 3 No 03/27/25 10:21 Months Nurse Filling Out Transfusion [email or web address] 03/27/25 10:21 & Questions: Date: 03/27/25 03/27/25 10:21 Time: 10:03/27/25 10:21 Patient unable to answer at this time (ie. confused, unrespo /Reproduction History /Reproductive History - svp group director: /Reproductive Hx- svp group director Hx Now Gestational Age (in weeks): EDC: [...] MD Cosigner Signature: Date CC: ~ Signed [facility] Work Phone: 1(140) 949-279207-30-2025 Consult note [facility] Medical Records Department [address] [place] [address] Anesthesia Postop Eval II 04/01/25 1114 MR#: [id number] Acct: [id number] Name: SHADIA TURNER Rep #:[id number] : 1940 84 From: Craig Salinas PCP: Dr. Doroteo Dominguez MD Status:REG SDC Y Race: C Location: [facility]18- Anesthesia Postop Eval I Sum Postop Eval [...] well Complications Anesthesia Complication: No 04/01/25 1116 MD> Date _ Craig Bachignsy Signature: Date CC: ~ Signed [facility]07-30-2025 History and physical note Author James Friend [facility] Note Date/Time April 01, 2025 9:03 am [facility] Medical Records Department [address] [place] [address] History & Physical Exam 04/01/25 0901 MR#: [id number] Acct: [id number] Name: SHADIA TURNER Rep #:[id number] : 1940 84 From: James Hwang DO PCP: Dr. Doroteo Dominguez MD Status:[facility] Location: [place] [address] HPI - General General Date of Admission: 04/01/25 Date of Service: 04/01/25 Chief Complaint: Screening colonoscopy HPI Narrative SHADIA SHAMIKA, is a 84 F who presents for screening colonoscopy. 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 She tolerated prep without any problems. She denies any abdominal pain. She does admit to occasional constipation. [facility] Medical History Wears hearing aid Loss [...] Doroteo Dominguez MD; James Hwang DO~ Signed [facility] Work Phone: 1(288) 224-387707-30-2025 Consult note [facility] Medical Records Department [address] [place] [address] Anesthesia Postop Eval I 04/01/25 1100 MR#: [id number] Acct: [id number] Name: SHADIA TURNER Rep #:[id number] : 1940 84 From: Ryan Andujar PCP: Dr. Doroteo Dominguez MD Status:[facility] Y Race: C Location: [place] [address] Anesthesia: Postop Eval I Current Vital Signs [...] Yes 04/01/25 1101 > Date _ Ryan Can Signature: Date CC: ~ Signed [facility]07-30-2025 Procedure note [facility] Medical Records Department [address] [place] [address] Colonoscopy Report MR#: [id number] Acct: [id number] Name: SHADIA TURNER Rep #:[id number] : 1940 84 From: James Hwang DO PCP: Dr. Doroteo Dominguez MD Status:[facility] Patient Name: Shadia Turner Procedure Date: 04/01/2025 [...] to age. Procedure Code(s): --- Professional --- 07854, Colonoscopy, flexible; with biopsy, single or multiple CPT copyright 2021 [employer]. All rights reserved. The codes documented in this report are preliminary and upon hospital coder review may be revised to meet current compliance requirements. James Hwang DO 04/01/2025 10:56:10 AM This report has been signed electronically. Number of Addenda: 0 Note Initiated On: 04/01/2025 10:19 AM 04/01/25 1056 Date _ James Perez Signature: Date (if indicated) CC: Dr. Doroteo Dominguez MD; James Hwang DO ~ Date Dictated: 04/01/25 1019 Date Transcribed: Treasury Agent: RF Signed [facility]07-30-2025 Procedure note [facility] Medical Records Department [address] [place] [address] Provation Physician Letter MR#: [id number] Acct: [id number] Name: SHADIA TURNER Rep #:[id number] : 1940 84 From: James Hwang DO PCP: Dr. Doroteo Dominguez MD Status:[facility] 04/01/2025 [address]ote[address]uez [address] [facility] [address] [place] [address] Re : Colonoscopy procedure for Shadia Turner [...] 04/01/25 1056 Date _ James Hwang DO Cosignsy Signature: Date (if indicated) CC: Dr. Doroteo Dominguez MD; James Friend, DO ~ Date Dictated: 04/01/25 1019 Date Transcribed: Treasury Agent: RF Signed [facility]07-30-2025 Evaluation note* Diagnosis Onset Date Resolution Status Admit Date Encounter for screening colonoscopy acute April 01, 2025 8:46am [facility] Work Phone: 1(812) 364-795207-30-2025 Consult note [facility] Medical Records Department [address] [place] [address] Pre-Anesthesia Evaluation 04/01/25 0917 MR#: [id number] Acct: [id number] Name: SHADIA TURNER Rep #:[id number] : 1940 84 From: Craig Salinas PCP: Dr. Doroteo Dominguez MD Status:REG SDC Y Race: C Location: [place] [address] ASA Classification* ASA Classification ASA Classification: 2 [...] lab: CBC WBC 6.0 K/mm3 (4.4-11.0) 01/17/24 08:19 01/17/24 RBC 5.06 M/mm3 (4.2-5.4) 01/17/24 08:01/17/24 Hgb 14.8 g/dL (12.0-15.0) 01/17/24 08:19 01/17/24 Hct 45.9 % (37-47) 01/17/24 08:19 01/17/24 [...] PT 15.9 SECONDS (11.7-14.9) H 11/27/14 08:34 11/02 03/17 Pre-Assessment Diagnosis/Proposed Procedure Planned Operative Procedure(s): COLONOSCOPY Anesthesia History Anesthesia History - svp group director: Anesthesia History - svp group director Hx Hospitalization No 03/27/25 10:21 Any Problems [...] take am of surgery PONV PONV - svp group director: PONV - svp group director Female Yes 03/27/25 10:21 HX of Motion [...] 04/01/25 09:13 Respiratory Assessment Respiratory Assessment - svp group director: Respiratory Tract Infection Hx - svp group director Hx Respiratory Tract Infection No 03/27/25 10:21 STOP Sleep Apnea STOP Sleep Apnea - svp group director: STOP Sleep Apnea - svp group director Hx Hypertension No 03/27/25 10:21 Hx Sleep [...] Tobacco Use History Tobacco Use History - svp group director: Tobacco Use History - svp group director Tobacco Use Smoking Status Never smoker 03/27/25 10:21 Hx Tobacco Use No 03/27/25 10:21 Years Smoking Packs Smoked per Day Smoking Cessation Date was within the last 15 years Hx Smoking Cessation Date Hx Smoking Cessation No: NON SMOKER 03/27/25 10:21 Counseling Hematologic Medial History Hematologic Hx - svp group director: Hematologic 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 Specify any problems Hx of Preganancy in last 3 No 03/27/25 10:21 Months Nurse Filling Out Transfusion [email or web address] 03/27/25 10:21 & Questions: Date: 03/27/25 03/27/25 10:21 Time: 10:03/27/25 10:21 Patient unable to answer at this time (ie. confused, unrespo /Reproduction History /Reproductive History - svp group director: /Reproductive Hx- svp group director Hx Now Gestational Age (in weeks): EDC: [...] multivitamin (Multiple Vitamins 1 tab PO DAILY 2 0 03/31/25 History tablet) meclizine 25 mg [...] no additional complaints, except as documented. 04/01/25919 MD> Date _ Craig Bachign Signature: Date CC: ~ Signed [facility]07-30-2025 History and physical note [facility] Medical Records Department [address] [place] [address] History & Physical Exam 04/01/25900 MR#: [id number] Acct: [id number] Name: SHADIA TURNER Rep #:[id number] : 1940 84 From: James Hwang DO PCP: Dr. Doroteo Dominguez MD Status:[facility] Location: [place] [address] HPI - General General Date of Admission: [...] abdominal pain. She does admit tooccasional constipation. [facility] Medical History Wears hearing aid Loss [...] Doroteo Dominguez MD; James Hwang DO~ Signed [facility]07-30-2025 [facility] Medical Records Department [address] [place] [address] History Physical Exam 04/01/25 0901 MR#: [id number] Acct: [id number] Name: SHADIA TURNER Rep #: [id number] : 1940 84 From: James Hwang DO PCP: Dr. Doroteo Dominguez MD Status:[facility] Location: [place] [address] HPI - General General Date of Admission: [...] pain. She does admit to occasional constipation. [facility] Medical History Wears hearing aid Loss [...] CC: Dr. Doroteo Dominguez MD; James Friend, [facility] Evaluation note* Diagnosis Onset Date Resolution Status Admit Date URI (upper respiratory infection) ac janay November 02, 2024 1:18pm [facility] Work Phone: 1(497) 360-313702-21-[address] Quispe [facility] October 24, 2022 8:29pm Note Date/Time October 24, 2022 8:29pm [facility] Medical Records Department [address] [place] [address] Emergency Department Summary 10/24/22 MR#: [id number] Acct: [id number] Name: SHADIA TURNER Rep #:[id number] : 1940 82 From: Víctor Quispe MD PCP: Dr. Doroteo Dominguez MD Status:[facility] ER Location: ED HPI HPI - GI [...] stool. No true exacerbating or alleviating factors. [facility] Medical History bunion surgery Hyperlipidemia Home [...] % (Auto) 60.6 Lymph % (Auto) 20.7 [place] % (Auto) 16.4 H Eos % (Auto) [...] Signed: Tyrell Lujan MD at 19:34 EST Reading Location ID and State: [address] [place] [address] , Service support , Discharge Plan Triage Chief Complaint: Abd [...] your Primary Care Provider. Call [facility] ([phone]) or report to the closest Emergency Room. Call 911 if necessary. 10/24/222028 <Electronically signed by Víctor Quispe MD> Cosigner Signature (if applicable): CC: Dr. Doroteo Dominguez MD ~ Signed [facility] Work Phone: Consult note Author Ryan Andujar [facility] Note Date/Time April 01, 2025 11:0 1am [facility] Medical Records Department [address] [place] [address] Anesthesia Postop Eval I 04/01/25 1100 MR#: [id number] Acct: [id number] Name: SHADIA TURNER Rep #:[id number] : 1940 84 From: Ryan Andujar PCP: Dr. Doroteo Dominguez MD Status:REG [facility] Y Race: C Location: [place] [address] Anesthesia: Postop Eval I Current Vital Signs [...] by Ryan Andujar > Date _ Ryan Can Signature: Date CC: ~ Signed [facility] Work Phone: Consult note Author Craig Burdick [facility] Note Date/Time April 01, 2025 11:1 6am [facility] Medical Records Department [address] [place] [address] Anesthesia Postop Eval II 04/01/25 1114 MR#: [id number] Acct: [id number] Name: SHADIA TURNER Rep #:[id number] : 1940 84 From: Craig Salinas PCP: Dr. Doroteo Dominguez MD Status:[facility] Y Race: C Location: [address] Anesthesia Postop Eval I Sum Postop Eval [...] by Craig Burdick MD> Date _ Craig Can Signature: Date CC: ~ Signed [facility] Work Phone: Evaluation noteNo assessment information available [facility] Work Phone: Hospital Discharge instructionsAdditional Instructions Follow-up your doctor in the outpatient setting. Return with worsening symptoms or other concerns. Your blood work did not show any acute findings and your CT was normal. Use prescriptions as prescribed that was sent to your pharmacy.[facility] Work Phone: Reason for referral (narrative)No reason for referral information availableWTrinity [facility] Work Phone: Summary Purpose Family History No Family History Records Found Relationship Condition Age at Onset Recorded Date/T joann mother Hypertension Unknown Advance Directives No Advanced Directives Records Found Advance Directive Response Recorded Date/ Time Advance Directives Yes February 16 12:17pm Living Will Yes March 19, 2021 7:42pm Power of Back Hoe Operator Yes March 19 7:42pm Advance Directive Response Recorded Date/ Time Advance Directives Yes February 16 12:17pm Living Will No October 24, 2 023 6:05pm Power of Back Hoe Operator No October 24, 2022 6:05pm Advance Directive Response Recorded Date/ Time Advance Directives Yes February 16 1:17pm Living Will No October 24, 2 023 7:05pm Power of Back Hoe Operator No October 24, 2022 7:05pm Advance Directive Response Recorded Date/ Time Living Will No October 24, 2 023 7:05pm Do you have a Healthcare Power of Back Hoe Operator? No October 24, 2022 7:05pm Advance Directives Yes February 16 1:17pm Advance Directive Response Recorded Date/ Time Advance Directives Yes February 16 1:17pm Advance Directive Response Recorded Date/ Time Do you have a Healthcare Power of Back Hoe Operator? Yes March 27, 2025 10:21am Name of Medical Power of Back Hoe Operator OLIVIA March 27, 2025 10:21am Advance Directives Yes February 16 1:17pm Advance Directive Response Recorded Date/ Time Do you have a Healthcare Power of Back Hoe Operator? Yes March 27, 2025 10:21am Name of Medical Power of Back Hoe Operator OLIVIA March 27, 2025 10:21am Do you have a Healthcare Power of Back Hoe Operator? Yes April 05, 2025 3:53pm Advance Directives Yes February 16 1:17pm Chief Complaint and Reason for Visit Chief Complaint Admit Date PROLIA February 13, 2025 10:4 8am abd April 05, 2025 3:1 5pm Reason for Visit Admit Date Encounter for screening colonoscopy April 01, 2025 8:46am Chief Complaint SCREENING/OSTEO Chief Complaint SCREENING/OSTEO Dizziness [...] Date PROLIA February 13, 2025 10:4 8am Additional Source Comments INFORMATION SOURCE (unrecogn ized section and content) DATE CREATED AUTHOR 10/09/2020 [facility] DATE CREATED AUTHOR AUTHOR'S ORGANIZ ATION 04/19/2025 [facility] y [facility] Goals (unrecognized section and content) Goals may [...] Dominguez MD Primary Care Provider, Referring P roayla Active Dr. Doroteo Hess MD Attending Provider Active Team Status: Inactive Member Role Status Dates Dr. Doroteo Dominguez MD Primary Care Provider, Attending P rovider Active Team Status: Inactive Member Role Status [...] 2024 End: November 02, 2024 Krishna Carroll [employer] Attending Provider Active S tart: November 02, [...] Provider Active St art: April 01, 2025 Team Status: Inactive Member Role/Relationship Status Dates Dr. Doroteo Dominguez MD Primary Care Provider Active Start: April 05, 2025 End: April 05, 2025 Dr. Mehran Andujar DO Emergency Provider Active Start: April 05, 2025 End: April 05, 2025 FOR RECORDS PERTAINING TO PATIENTS WHO [...] BE BASED ON THE PRIMARY CLINICAL RECORDS. [facility] [employer] [facility]. provides no warranty or guarantee of the accuracy or completeness of information in this document.
== END | disposition home or self-care (01) ==
LOC: MTRAD 11:08
PROVIDERS: PCP Family Medicine; Referring Provider Family Medicine; Visit Provider Family Medicine
DX: M48.02 Spinal stenosis, cervical region (principal)
CPT/HCPCS: 72052

== ENCOUNTER 2025-05-08 13:30 | Outpatient (RCR) | payer MEDICARE, SELFPAY ==
--- NOTE | 2025-04-23 09:42 | HP.PTEVAL_ITS ---
Patient's Visit Information Visit Information Visit Information: KAT WICK is a 84 year old F referred to Physical Therapy by Dr. Doroteo Dominguez MD with a diagnosis of vertigo and cervical stenosis. Date of Evaluation: 04/23/25 Physical Therapist: JOAN Bailey Visit Plan Frequency: 2x /Week Duration: 2 Months Plan: 2X/ week for 8 weeks to work on c-spine AROM, light MT to the c-spine par aspinals to help with the tight musculature, gait training, balance activities, with HEP Subjective Subjective: 2 weeks ago she was in the hospital again for vertigo and gets so sick. She has a lot of pain in neck and shoulders and into head. When she has the vertigo she has dry heaves, dizziness, and can not walk straight. She has scoliosis and Osteoporosis. Dr De La Fuente wanted to fix her neck and that was 4-5 years ago and she said no. They took an x-ray of neck and mid back. She does not feel tightness in her márquez. She goes to aerobics and can lift her arms overhead. She exercises 5 days a week. It seems to happen when she gets up from a nap a lot. She gets dizzy when get up from the floor. She can lay in bed and roll around without dizziness. She gets buzzing in her ears as well. She is stiff in the neck in the morning. She has tingling in fingers and shoulder pain. Pt admits to being more off balance this year and a little worse since her last dizziness episode that was about 2 weeks ago. Pain c-spine: Pain Intensity (Out of 10): 1 Objective Objective: Gait: walks with arms outstretched and more of a stoppages gait (decreased proprioception). Takes very small steps. Has a little "bounce" (pt describes it as a shaking with gait." Increase dizziness with gait with turning her head up and down (worse than side to side) but side to side she gets dizziness and unsteadiness also and she slows down her gait to maintain her balance with CGA. BW walking pt took smaller steps and did step on her other foot at times as it appeared she had decreased ability to know where her foot was in space. Stairs: up stairs recip (looks at feet) with light tough on the railing and descending steps she used B rails and had to look at feet as it appeared she struggled with proprioception and placing her foot on the next step going down the steps. Posture: sits with upright posture. C-spine AROM: flexion 100%, Ext 50% with increase pain, Rotation B 75%, SB B 75% UE AROM: WFL.. L shoulder flexion had less ROM than the R. UE MMT: R shoulder flexion 4.3 and L 4 R shoulder ABD 4.2 and L 4.0 R shoulder ER 3.2 and L 4.5 R handed R 50# and L 40# FGA: 14 Patella DTR 3+/3 B LE MMT: R hip flex 14 and L 12.5 R knee ext 21.9 and L 24.9 R knee flex 11.4 and L 8.2 Standing heel and toe raises: able to heel and toe raise with a little unsteadiness and some decrease ROM into DF Palpation in supine: tenderness along the occiput that caused immed dizziness. Put her head into flexion and the dizziness stopped. Pt was tender along B c- spine paraspinals and B levator (muscle tension felt here). Very light c-spine distraction caused relief of neck pain. Balance/Special Test Scores Functional Gait Assessment Score: 14 % Disability: 53.3400 Oswestry Neck Score: 13 Goals Goal 1:: I HEP Goal Time Frame: 8-12 Weeks Goal 2:: Increase balance (score on FGA was 14 on eval) Goal Time Frame: 8-12 Weeks Goal 3:: Be able to walk BW with CGA with more steadiness Goal Time Frame: 8-12 Weeks Goal 4:: Decrease freq of neck pain with daily activities Goal Time Frame: 8-12 Weeks Goal 5:: Be able to go up and down the steps recip with 1 rail with smoothness. Rehabilitation Potential Rehabilitation Potential: Good Anticipated Interventions Patient/Client Instruction: Educate patient on: Condition and Plan of Care For the Purpose of:: To decrease pain, To increase ROM, To improve nutrient delivery to tissue, To improve muscle performance and motor function, To improve ability to perform ADL's, To increase tolerance to activity/condition/position, To improve performance and independence with ADL's, To decrease level of supervision to perform tasks, To improve ability of physical actions for home/community/work/leisure, To improve gait and locomotor functions, To improve health of tissue, To decrease soft tissue restriction, To increase flexibility/ROM, To improve endurance, To improve balance and To improve safety with gait Therapeutic Exercise to Include: Strength training, Balance training, Coordination, Body mechanics, Postural training, Gait and locomotor training, Neuromotor development, Active ROM and Dynamic Lumbar Stabilization For the Purpose of:: To decrease pain, To increase ROM, To improve nutrient delivery to tissue, To improve muscle performance and motor function, To improve ability to perform ADL's, To increase tolerance to activity/condition/position, To improve performance and independence with ADL's, To improve ability of physical actions for home/community/work/leisure, To improve gait and locomotor functions, To improve health of tissue, To decrease soft tissue restriction, To increase flexibility/ROM, To improve endurance, To improve balance and To improve safety with gait Functional Training to Include: Gait training For the Purpose of:: To improve gait and locomotor functions and To improve safety with gait Manual Therapy Techniques to Include: Passive ROM and Soft tissue mobilization For the Purpose of:: To decrease pain, To increase ROM, To improve nutrient delivery to tissue and To improve muscle performance and motor function Cryotherapy (ice pack, ice massage): Yes Thermo therapy (hot pack): Yes Ultrasound (thermal/non thermal): Yes For the Purpose of:: To decrease pain, To decrease swelling/inflammation, To increase ROM, To improve nutrient delivery to tissue, To improve muscle performance and motor function and To improve ability to perform ADL's Text: Thank you for the opportunity to evaluate your patient. For Medicare and Medicare HMO plans, please review the plan of care and approve it. It will need to be FAXED BACK to us at [phone] for Medicare purposes. For Medicare only, by signing this I certify the plan of care. Please let me know if there are questions or concerns regarding this plan of care. Physician Signature: Date:
--- NOTE | 2025-07-08 13:25 | HP.PT.NRP ---
Patient Information Patient Information: KAT WICK was seen in my office for initial evaluation on 04/23/25. The following Plan of Care was established for this patient: POC Established Initial Frequency: 2x /Week Initial Duration: 2 Months Anticipated Interventions Patient/Client Instruction: Educate patient on: Condition and Plan of Care For the Purpose of:: To decrease pain, To increase ROM, To improve nutrient delivery to tissue, To improve muscle performance and motor function, To improve ability to perform ADL's, To increase tolerance to activity/condition/position, To improve performance and independence with ADL's, To decrease level of supervision to perform tasks, To improve ability of physical actions for home/community/work/leisure, To improve gait and locomotor functions, To improve health of tissue, To decrease soft tissue restriction, To increase flexibility/ROM, To improve endurance, To improve balance and To improve safety with gait Therapeutic Exercise to Include: Strength training, Balance training, Coordination, Body mechanics, Postural training, Gait and locomotor training, Neuromotor development, Active ROM and Dynamic Lumbar Stabilization For the Purpose of:: To decrease pain, To increase ROM, To improve nutrient delivery to tissue, To improve muscle performance and motor function, To improve ability to perform ADL's, To increase tolerance to activity/condition/position, To improve performance and independence with ADL's, To improve ability of physical actions for home/community/work/leisure, To improve gait and locomotor functions, To improve health of tissue, To decrease soft tissue restriction, To increase flexibility/ROM, To improve endurance, To improve balance and To improve safety with gait Functional Training to Include: Gait training For the Purpose of:: To improve gait and locomotor functions and To improve safety with gait Manual Therapy Techniques to Include: Passive ROM and Soft tissue mobilization For the Purpose of:: To decrease pain, To increase ROM, To improve nutrient delivery to tissue and To improve muscle performance and motor function Cryotherapy (ice pack, ice massage): Yes Thermo therapy (hot pack): Yes Ultrasound (thermal/non thermal): Yes For the Purpose of:: To decrease pain, To decrease swelling/inflammation, To increase ROM, To improve nutrient delivery to tissue, To improve muscle performance and motor function and To improve ability to perform ADL's Last Seen Last Seen: This patient was last seen in our office 05/08/25. Pertinent comments regarding their Physical therapy will appear below: [facility] PT At this point I will be discontinuing this patient from physical therapy. I would be happy to see this patient again in the future if found appropriate by the physician. Thank you! Lucretia Vincent, JOAN Balance/Gait/Functional tests Balance/Special Test Scores Functional Gait Assessment Score: 14 % Disability: [id number] Oswestry Neck Score: 13
== END 2025-05-08 19:00 | disposition home or self-care (01) ==
LOC: PT 13:30
PROVIDERS: PCP Family Medicine; Referring Provider Family Medicine; Visit Provider Family Medicine
DX: R42 Dizziness and giddiness (principal); M48.02 Spinal stenosis, cervical region
CPT/HCPCS: 97140; 97162; 97530

== ENCOUNTER → 2025-05-20 | Outpatient (CLI) | payer MEDICARE, SELFPAY ==
--- NOTE | 2025-05-20 14:45 | MRI_ITS ---
PROCEDURE: SPINE CERVICAL (ROUTINE) 05/20/2025 REASON FOR EXAM: PAIN WORSENING DEXTERITY AND BALANCE X6 MONTHS TECHNIQUE: Procedure Code: MRISPC Modality: MR Procedure: SPINE CERVICAL (ROUTINE) Multiplanar and multisequence images were obtained without IV contrast administration. COMPARISON: None. FINDINGS: Vertebrae: Cervical vertebral body heights are preserved. Bone marrow signal is unremarkable. Alignment: Normal. No spondylolisthesis. Spinal Cord: Cervical spinal cord is of normal size and signal intensities. Structures at the foramen magnum are unremarkable. C2-3: Facet joint arthropathy. Mild bilateral foraminal stenosis. No right foraminal or canal stenosis. C3-4: Left uncovertebral hypertrophy. Left facet joint arthropathy. Severe left foramina stenosis. No right foramina stenosis. No canal stenosis. C4-5: Disc desiccation. Disc bulge. Uncovertebral hypertrophy. Facet joint arthropathy. Moderate bilateral foramina stenosis. Mild canal stenosis. C5-6: Disc desiccation. Disc bulge. Uncovertebral hypertrophy. Facet joint arthropathy. Severe bilateral foramina stenosis. Moderate canal stenosis. C6-7: Disc desiccation. Disc bulge. Uncovertebral hypertrophy. Facet joint arthropathy. Severe bilateral foramina stenosis. Moderate canal stenosis. 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 Reading Location: [id number]
== END | disposition home or self-care (01) ==
LOC: MRI 14:40
PROVIDERS: PCP Family Medicine; Referring Provider Student in an Organized Health Care Education/Training Program; Visit Provider Student in an Organized Health Care Education/Training Program
DX: G95.9 Disease of spinal cord, unspecified (principal); M54.12 Radiculopathy, cervical region
CPT/HCPCS: 72141

== ENCOUNTER 2025-08-14 10:41 | Outpatient (CLI) | payer MEDICARE, SELFPAY ==
[2025-08-14 11:08] VITALS: BP 119/42; PULSE 79; RESP 16; TEMP 36.3; O2SAT 97; BMI 25.4
[2025-08-14] MEDS: DENOSUMAB 60 MG/ML SC (11:12)
== END 2025-08-14 23:59 | disposition home or self-care (01) ==
LOC: MEDOUTP 10:42
PROVIDERS: PCP Family Medicine; Referring Provider Family Medicine; Visit Provider Family Medicine
DX: M81.0 Age-related osteoporosis without current pathological fracture (principal)
CPT/HCPCS: 96372; J0897